=== PATIENT | female | born 1955 | race Caucasian/White ===

== ENCOUNTER 2018-10-16 06:37 | Day surgery (SDC) | payer OTHER, SELFPAY ==
[2018-10-16 06:40] VITALS: BP 133/68; PULSE 81; RESP 18; TEMP 36.6; O2SAT 96
[2018-10-16] MEDS: Lidocaine 2% Pres-Free 2 ML VIAL 14 ML IJ (07:30)
--- NOTE | 2018-10-16 08:18 | PDOC.DSDIS_ITS ---
Discharge Plan Disposition Patient Disposition: HOME Condition: Improving Discharge Details Attending Provider: Eugene Villagomez Primary Care Provider: Samantha Michelle V Home Meds and New Rx's Prescriptions: No Action montelukast 10 MG tablet 10 mg PO DAILY RF: 0 esomeprazole magnesium [Nexium] 20 MG capsule,delayed release(DR/EC) 20 mg PO DAILY RF: 0 escitalopram oxalate [Lexapro] 20 MG tablet 20 mg PO DAILY RF: 0 meloxicam 7.5 MG tablet 7.5 mg PO DAILY RF: 0 levothyroxine 125 MCG tablet 125 mcg PO DAILY@0730 Qty: 30 RF: 0 levalbuterol HCl [Xopenex] 1.25 MG/3 ML solution for nebulization 1.25 mg UPD Q2H PRN PRNQty: 1 RF: 0 aspirin [Aspir-81] 81 MG tablet,delayed release (DR/EC) 81 mg PO RF: 0 Discharge Instructions Additional Instructions: KEEP YOUR LEFT HAND ELEVATED ABOVE HEART LEVEL MUCH POSSIBLE FOR THE NEXT 48 HOURS. EXERCISE YOUR FINGERS AND THUMB COMFORT ALLOWS. YOU MAY LOOSEN THE WRIST SPLINT AND/OR THE UNDERLYING BERTRAM BANDAGE IF THEY FEEL TOO TIGHT. EXPECT SOME BLOODY DRAINAGE ON THE UNDERLYING GAUZE BANDAGES. FOR SHOWERING TOMORROW, COVER YOUR WRIST AND HAND WITH A PLASTIC BAG AND A RUBBER BAND ABOUT THE UPPER FOREARM TO KEEP THE WOUND DRY. ON 10/18/18, YOU MAY REMOVE ALL OF YOUR BANDAGES AND GET YOUR INCISION WET IN THE SHOWER WITH SOAP AND WATER. GENTLY PAT THE STITCHES DRY AND COVER THEM WITH GAUZE OR EXTRA-LARGE BANDAIDS. RESUME NORMAL USE TOLERATED GOING WITHOUT THE SPLINT SOON YOU ARE COMFORTABLE. FOLLOW-UP WITH DR. VILLAGOMEZ IN 1 WEEK FOR STITCH REMOVAL. TAKE YOUR REGULAR MEDICATIONS BEFORE. TAKE TYLENOL, ADVIL OR ALEVE FOR MILDER PAIN. TYLENOL MAY BE TAKEN AT THE SAME TIME ALEVE OR AT THE SAME TIME ADVIL THEY ARE METABOLIZED DIFFERENTLY AND ARE NOT CROSS TOXIC. TAKE NORCO (HYDROCODONE 5/325MG) 1-2 EVERY 4-6 HOURS FOR MORE SERIOUS PAIN. [facility] REGULATIONS LIMIT THE AMOUNT OF NORCO THAT CAN BE PRESCRIBED TO 18 TABLETS. Equipment/Supplies: Brace Remove Dressings/Wound Care:: 48 hours Shower/Bathe:: 48 hours Diet:: Carb Counting Discharge Orders Discharge Orders: Discharge Order (Routine); Ordered 10/16/18 Ordered By: Eugene Villagomez
--- NOTE | 2018-10-16 08:37 | ROE_ITS ---
REPORT OF OPERATIVE PROCEDURE DATE OF PROCEDURE October 16, 2018 PREOPERATIVE DIAGNOSES Left carpal tunnel syndrome, chronic. POSTOPERATIVE DIAGNOSES Left carpal tunnel syndrome, chronic. PROCEDURE Left open carpal tunnel release. SURGEON Eugene Schwab M.D. MASTER FIRE CONTROL TECHNICIAN Tech. ANESTHESIA 2% Lidocaine preservative free. PREP ChloraPrep. INDICATIONS This patient has had successful right open carpal tunnel surgery by me several months ago. She has no w returned to have the left carpal tunnel symptoms treated. She had EMG studies confirming the above named diagnosis. She was well aware of the planned procedure. I discussed the risks and benefits and re-reviewed the results in the Day Surgery holding area earlier this morning. I marked her left wrist . She has had an excellent result with the right hand. DESCRIPTION OF PROCEDURE The patient was taken to the Operating Suite, and time-out was instituted. The left hand and forearm were prepped with ChloraPrep and sterile drapes were applied. 2% preservative free lidocaine was then used to create an anesthetic wheal over the proposed incision site. A universal carpal tunnel incis ion was then made, based over the ring finger ray. Care was taken to cross the wrist flexion crease, at an acute angle in an ulnar direction so as to prevent injury to the palmar cutaneous branch of th e median nerve. After ensuring adequate anesthesia, a #15-scalpel blade was then used and Loupe magnification was use d throughout the procedure. The skin and subcutaneous tissues were incised and hemostasis was control led by direct pressure. The incision was carried sharply down through the subcutaneous fat to the pal mar fascia. Heiss retractors were placed to provide good visualization. Under direct vision the purvis sverse carpal ligament was identified and incised. Care was taken to prevent injury to the underlying median nerve. The incision was carried proximally to the distal portion of the antebrachial fascia a nd distally just proximal to the arterial arcade. Complete release was achieved. I had the patient fl ex and extend her fingers and there was no evidence of any loss bodies, foreign bodies or ganglion cy sts. There was a characteristic hourglass constriction of the median nerve at the mid portion of the transverse carpal ligament. The wound was then irrigated. The skin was closed with sutures of #5-0 Ethilon, alternating with simp le sutures with near-far, far-near retention sutures. Sterile bandages were applied, these consisted of Xeroform gauze, 4x4s, a 3-inch conforming gauze bandage, a 3-inch Huber wrap, and a commercial wrist immobilizer. The patient was taken to outpatient Recovery Room in satisfactory condition, tolerating the procedure well.
== END 2018-10-16 08:30 | disposition home or self-care (01) ==
PROVIDERS: PCP Family Medicine; Visit Provider Orthopaedic Surgery
PROC: (CPT 64721; principal; 2018-10-16 07:30)
DX: G56.02 Carpal tunnel syndrome, left upper limb (principal)
CPT/HCPCS: 64721; L3908

== ENCOUNTER 2018-12-11 07:18 | Outpatient (CLI) | payer OTHER, SELFPAY ==
[2018-12-11 07:48] LABS: HGB 12.5 g/dL (12.0-15.5); Mean Corp. HGB Concentration 32.1 g/dL (32.0-36.0); Mean Corpuscular Hemoglobin 25.5 pg (27.0-33.0); Mean Corpuscular Volume 79.6 fL (80-95); Mean Platelet Volume 9.8 fL (8.0-11.0); Platelet Count 254 x1000/uL (130-400); RBC Distribution Width 17.8 % (11.7-14.6); White Blood Cell Count 11.18 k/cumm (4.4-10.8)
[2018-12-11 08:34] LABS: ESR 37 MM/HR (0-30)
[2018-12-11 12:55] LABS: C-Reactive Protein 3.82 mg/dL (0.0-0.3); TSH (W/Ref FT4) 3.01 uIU/mL (0.358-3.74)
[2018-12-12 10:01] LABS: Rheumatoid Factor 16 IU/mL (<12.5)
[2018-12-12 13:55] LABS: ANA Interpretation Positive (NEGAT); ANA Titer Pattern 1:160 Speckled
== END 2018-12-11 07:38 ==
PROVIDERS: PCP Family Medicine; Visit Provider Family Medicine
DX: R53.83 Other fatigue (principal)
CPT/HCPCS: 36415; 85027; 85652; 84443; 86038; 86140; 86431

== ENCOUNTER 2019-05-26 13:25 | Outpatient (CLI) | payer OTHER, SELFPAY ==
[2019-05-26 15:20] LABS: Abs Immature Grans 0.03 k/cumm (0.0-0.09); Absolute Basophil Count 0.04 k/cumm (0.0-0.2); Absolute Lymphocyte Count 2.76 k/cumm (1.2-3.4); Absolute Monocyte Count 0.68 k/cumm (0.11-0.7); Basophils % 0.4; Eosinophils % 2.9; HCT 40.6 % (36.0-46.0); HGB 13.2 g/dL (12.0-15.5); Immature Grans % 0.3; Lymphocytes % 25.4; Mean Corp. HGB Concentration 32.5 g/dL (32.0-36.0); Mean Corpuscular Hemoglobin 25.9 pg (27.0-33.0); Mean Corpuscular Volume 79.6 fL (80-95); Mean Platelet Volume 9.9 fL (8.0-11.0); Monocytes % 6.3; Neutrophils % 64.7; Platelet Count 288 x1000/uL (130-400); RBC Distribution Width 17.5 % (11.7-14.6); White Blood Cell Count 10.87 k/cumm (4.4-10.8)
[2019-05-26 15:38] LABS: Absolute Eosinophil Count 0.32 k/cumm (0.0-0.7); Absolute Neutrophil Count 7.03 k/cumm (1.2-6.7)
[2019-05-26 15:52] LABS: Bilirubin Negative (Negative); Blood Negative (Negative); Clarity Clear (Clear); Glucose Negative (Negative); Ketones Negative (Negative); Leukocyte Esterase Negative (Negative); Nitrite Negative (Negative); Urobilinogen 0.2 EU/dL (Up TO 0.2); pH 5.5 (5-8)
[2019-05-26 16:11] LABS: Anion Gap 9.6 mmol/L (3-11); BUN 10 mg/dL (7-18); CO2 27.4 mmol/L (21.0-32.0); CREATININE 0.67 mg/dL (0.55-1.02); Chloride 104 mmol/L (98-107); Glucose 95 mg/dL (70-100); Potassium 4.2 mmol/L (3.5-5.1); Sodium 141 mmol/L (136-145)
== END 2019-05-26 13:45 ==
PROVIDERS: PCP Family Medicine; Visit Provider Orthopaedic Surgery
DX: M25.561 Pain in right knee (principal); M17.11 Unilateral primary osteoarthritis, right knee; I48.91 Unspecified atrial fibrillation; E03.9 Hypothyroidism, unspecified; Z01.812 Encounter for preprocedural laboratory examination; Z01.810 Encounter for preprocedural cardiovascular examination
CPT/HCPCS: 36415; 80051; 82947; 84520; 81003; 82565; 85025; 93005; 93010

== ENCOUNTER 2019-06-04 06:07 | Inpatient (IN) | payer OTHER, SELFPAY ==
[2019-06-04] VITALS (20 sets, daily range): BP systolic 101–149; BP diastolic 60–77; PULSE 68–94; RESP 14–22; TEMP 36.2–37.1; O2SAT 92–95
[2019-06-04] MEDS: Lactated Ringers 1,000 ML 80 ML IV ×2 (06:45→11:40)
[2019-06-04] MEDS: Bupivacaine 0.5% Pres-Free 30 ML VIAL ×2 (07:40→10:50)
[2019-06-04] MEDS: Bupivacaine LIPOSOME/PF 133 MG/10 ML VIAL IJ (07:40)
[2019-06-04] MEDS: Hydrogen Peroxide 3% 480 ML BTL (09:38)
--- NOTE | 2019-06-04 10:10 | SYNOVIUM_PTH ---
PATIENT: Brandi Ruiz LOC: U#:[id number] AGE/SX: 64/F ROOM: RE06/04/[address]: Eugene Schwab MD : [id number] BED: A DIS: 06/08/2019 SPEC #: [id number] RECD: 06/04/19 12:53 STATUS: SOLANGE REQ #: [id number] RADHA: 06/04/19 10:[address]: Eugene Schwab DEPT: Surgical Specimen RECD BY: Nadia Boateng ENTERED: 06/04/19 12:54 SP TYPE: SYNOVIUM OTHR DR: Samantha Michelle V Tissues: 1 - SYNOVIUM/IAL Procedures: GROSS AND MICRO LEVEL 4 Comments: [id number]
[2019-06-04] MEDS: fentaNYL 100 MCG/2 ML VIAL IVP ×4 (11:32→12:41)
--- NOTE | 2019-06-04 11:46 | DI.RAD_ITS ---
SYMPTOMS/DIAGNOSIS: RIGHT TOTAL KNEE ARTHROPLASTY FOR OSTEOARTHRITIS RIGHT KNEE: Two views were obtained and show total knee joint replacement in position. The components appear well seated. Small bony fragment is noted adjacent to the lateral aspect of the proximal tibia at the joint level.
--- NOTE | 2019-06-04 13:02 | ROE_ITS ---
REPORT OF OPERATIVE PROCEDURE DATE OF PROCEDURE June 04, 2019 PREOPERATIVE DIAGNOSIS End-stage osteoarthritis, right knee. POSTOPERATIVE DIAGNOSIS End-stage osteoarthritis, right knee. PROCEDURE 1. Right total knee arthroplasty, cemented. 2. Biopsy synovium, as the patient was recently diagnosed with dermatomyositis. SURGEON Eugene Schwab M.D. PLANNING FEEDER Alice An PA-C ANESTHESIA Femoral nerve block, followed by general via LMA by Ant Haley C.R.N.A. PREP ChloraPrep INDICATIONS This patient is a 64-year-old female who has had increasing symptoms in her right knee. She was recen tly diagnosed at [facility] with dermatomyositis and was placed on Plaqueni l. She underwent successful left total knee arthroplasty by me approximately six years ago. She was h aving increasing pain in her right knee and radiographs demonstrated end-stage osteoarthritis involvi ng primarily the medial compartment, but to a lesser extent, the patellofemoral joint. She was treate d conservatively until she could schedule a knee replacement. 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 I reviewed with the patient the planned operative procedure. I explained to her that some conditions have changed compared to her previous operation six years ago, specifically, that we are able to use Exparel as a femoral nerve blocking agent under ultrasound placement. We also have the ability to use tranexamic acid to minimize blood loss. The patient did have a relatively stormy postoperative cours e with pain and nausea control on her previous admission six years ago for left total knee replacemen t. She responded during that admission to Ativan controlling a lot of her nausea, more so than any of the antiemetics. She also has multiple allergies, including to cephalosporins, penicillin, vancomyci n, sulfites, and methylparaben preservatives in local anesthetics. The risks and benefits were review ed when the patient was greeted in the Day Surgery holding area and she understood and wished to proc eed. I marked her right leg with a skin marker. My plan was to use clindamycin, which the patient has taken before without allergic reaction as the prophylactic antibiotic. I would also use topical purvis examic acid at the end of the case along with Ativan and Dilaudid for pain control, and anxiety and n ausea control in addition to Zofran. The patient has allergies to Compazine and Phenergan. DESCRIPTION OF PROCEDURE The patient underwent femoral nerve blockade using Exparel. She then underwent general anesthesia by LMA with Propofol. Pneumatic tourniquet was applied to the right proximal thigh. She was given 600 mg of clindamycin over the course of 1 hour before the tourniquet was inflated and this was repeated at tourniquet deflation approximately 2 hours into the case. A Ham catheter was inserted without di fficulty. The right lower extremity was prepped with ChloraPrep from the toes to the groin. Sterile d rapes were applied. The limb was elevated for three minutes to exsanguinate it. The patient is morbid ly obese with a BMI of 45. She is quite tall such that her size did not readily compromise performanc e of the arthroplasty other than dealing with a very heavy limb. An anterior approach was used. Care was taken to try to create a single incision down to the fascia a nd extensor mechanism. A medial parapatellar arthrotomy was then performed and a copious amount of ricarda int fluid was removed from the knee. The patella was everted and the knee showed global osteoarthriti s in all three compartments. In addition, there was some synovitis in the supracondylar area of the f emur, which was sent for pathologic evaluation because of the recent diagnosis of dermatomyositis. Ho wever, overtly, there were no other signs of any inflammatory arthritis and it all appeared to be rel ated to degenerative arthritis. Osteophytes were trimmed medially and laterally from the patella. I t koffi used an intramedullary guide orin to resect the distal femur. A 7-degree valgus bushing was used t o resect an appropriate amount from the distal femur. The patient had a slight flexion contracture an d therefore 12 millimeters was resected from the distal femur. The patient had size #4 components use d on her left knee and subsequently during the course of this procedure, it was felt that a size #4 h ad the most appropriate fit with stress distribution over the larger surface area. After making the distal femoral, anterior and posterior cuts, made with cutting jigs for the size #4 femoral component and it fit perfectly. Next, the posterior cruciate ligament was recessed. Retractors were placed around the proximal tibia. The remnants of the medial meniscus were excised. The lateral meniscus was excised, as well as the A CL. An external alignment jig was placed, but initially had difficulty placing it because there was a large intratendinous osteophyte within the patellar tendon proximal to the tibial tubercle. This was carefully dislodged without damaging the tendon. It measured approximately 1 cm x 1.75 cm. I felt t hat this had to be removed because it could cause patellar tendinitis in the perioperative period. On ce this was removed, the external alignment jig could be easily placed on the proximal tibia. It was pinned to the bone and a 3-degree posterior slope cutting block was utilized. A minimal resection was done so as to avoid changing the joint line. A size #4 tibial tray had the most appropriate fit afte r a trial reduction was performed. Fixation holes were placed for the rotating platform component. I had previously used a tibial revision component as her initial tibial tray on the left knee was the recommendation by [facility] at that time, however, subsequent studies have shown, and the [facility] sales representative verified that there is no reason to not use the rotating platform t ray and there was no need to use a revision tray. The patella was measured with a caliper. It was quite worn out, especially laterally. The thickness o f the patella was only 21 millimeters. Using a combination resection guide and a freehand technique. I did a minimal resection of the patient's stockbridge patella. It was felt that a 38-mm tri-pronged cha lar component would have the most appropriate fit. This was medialized slightly. It tracked with the trial components in place without difficulty. After verifying the need for a size #4 tibial tray, a probable 10-mm polyethylene insert, a size #4 femoral component and a 38 patellar component, the [facility] nt fixation of the components was performed. Care was taken to make sure that the medial collateral l igament was released as a sleeve of tissue off the proximal and medial tibial metaphysis so as to all ow for correction of the patient's varus deformity. Methylmethacrylate was mixed in a vacuum chamber for 2 minutes. It contained gentamicin. The tibial c omponent was cemented into position in standard pressurization techniques were utilized. Extraneous c ement was removed. After that cement was allowed to cure, care was taken to remove any extraneous ce ment from the posterior depths of the wound. In addition, I noted that there was no extension of the femoral condyles posteriorly above the prosthesis to prevent holiness of extension. The second bat ch Methylmethacrylate was then used to cement the femoral component and a size #10-mm tray trial was used to pressurize the cement, the patellar component was also cemented with this second batch of mark ent and it was a #38-mm tri-pronged component. After the cement was allowed to cure, search was made for any extraneous cement in the depths of the wound. At this point, patellar tracking was assessed, there was a very slight tendency for the patella to ruiz bluxate, but I felt this was minimal and I did not feel a lateral retinacular release was indicated. Betadine irrigation protocol was then instituted, dilute Betadine 17.5 cc was placed in 500 cc of anil ine and irrigated over the course of three minutes into the wound, this was followed by irrigating wi th 1000 cc of sterile saline. The components all appeared to be well-fixed with no extraneous loose bodies or pieces of bone, or other tissue to interfere with function. There was no tendency for beari ng to spinout, and the actual rotating platform polyethylene insert was placed. This was a curved ins ert #size 4 matching the femoral component and the tibial component. The medial retinacular arthrotom y was then closed with sutures of #1-Vicryl in a qwikmw-zf-vqwvy fashion. At this point, the tourniqu et was deflated with tourniquet time being approximately 124 minutes. Tranexamic acid was then placed intra-articularly to minimize blood loss. This was 3 grams and 100 cc of saline. The peritenon was closed with #2-0 Vicryl. The subcutaneous tissues were closed with #2- 0 Vicryl. The skin was closed with juvencio. ESTIMATED BLOOD LOSS 125 cc The wounds were then dressed with Xeroform gauze, 4x4s, ABD Pads, two 6-inch confirming gauze bandage s, two 6-inch Huber wraps, a Cryo/Cuff, and a commercial knee immobilizer. The patient had excellent r eturn of dorsalis pedis pulses and circulation to the foot. She tolerated the procedure well. The biopsy specimen will be sent to the [facility] for confirmation of any inflammatory co mponent to the patient's arthritis.
[2019-06-04] MEDS: Normal Saline Flush 10 ML SYR IV ×2 (13:42→21:21)
[2019-06-04] MEDS: POTASSIUM CHLORIDE/0.9% NACL 1,000 ML 150 MEQ IV ×2 (13:42→20:56)
[2019-06-04] MEDS: Acetaminophen 325 MG TAB 650 MG PO ×2 (14:48→18:44)
[2019-06-04] MEDS: Ibuprofen 400 MG TAB PO ×2 (17:08→21:21)
[2019-06-04] MEDS: CLINDAMYCIN 600 MG/50 ML BAG 100 MG IVPB (17:48)
--- NOTE | 2019-06-04 20:00 | NUR.NOTE ---
Nursing Note: Pt to MS floor from ICU (MS overflow) at 1819. A&Ox3. VSS. Transferred from ICU bed to MS bed via hover mat. Pt's at bedside. Pt oriented to MS floor, call rousseau, etc. Call rousseau within reach. RN will continue to monitor.
[2019-06-04] MEDS: Esomeprazole 40 MG CAPCR PO (20:14)
[2019-06-04] MEDS: Escitalopram 20 MG TAB PO (21:19)
[2019-06-04] MEDS: Levothyroxine 125 MCG TAB PO (21:19)
[2019-06-04] MEDS: Hydroxychloroquine 200 MG TAB PO (21:19)
[2019-06-04] MEDS: Metoprolol CR 25 MG TABCR PO (21:20)
[2019-06-04] MEDS: LORazepam 2 MG/ML VIAL 1 MG IVP (21:21)
[2019-06-05] MEDS: CLINDAMYCIN 600 MG/50 ML BAG 100 MG IVPB (02:19)
[2019-06-05 03:35] VITALS: BP 101/65; PULSE 80; RESP 16; TEMP 36.1; O2SAT 93
[2019-06-05] MEDS: Acetaminophen 325 MG TAB 650 MG PO (03:44)
[2019-06-05] MEDS: POTASSIUM CHLORIDE/0.9% NACL 1,000 ML 150 MEQ IV ×4 (03:50→23:33)
[2019-06-05] MEDS: HYDROcodone 5/Acetaminophen 325 TAB PO ×5 (04:10→22:00)
[2019-06-05 07:20] LABS: HCT 32.6 % (36.0-46.0); HGB 10.1 g/dL (12.0-15.5); Mean Corpuscular Volume 80.7 fL (80-95); Mean Platelet Volume 10.3 fL (8.0-11.0); Platelet Count 215 x1000/uL (130-400); RBC 4.04 m/cumm (4.00-5.20); White Blood Cell Count 13.27 k/cumm (4.4-10.8)
[2019-06-05 07:36] LABS: Anion Gap 7.2 mmol/L (3-11); BUN 12 mg/dL (7-18); CO2 27.8 mmol/L (21.0-32.0); CREATININE 0.71 mg/dL (0.55-1.02); Calcium 8.7 mg/dL (8.5-10.1); Chloride 107 mmol/L (98-107); Glucose 135 mg/dL (70-100); Potassium 4.6 mmol/L (3.5-5.1); Sodium 142 mmol/L (136-145)
[2019-06-05 07:54] VITALS: BP 98/61; PULSE 72; RESP 16; TEMP 36.9; O2SAT 95
[2019-06-05] MEDS: Hydroxychloroquine 200 MG TAB PO ×2 (08:29→19:40)
[2019-06-05] MEDS: Multivitamin w/Minerals TAB 1 TAB PO (08:29)
[2019-06-05] MEDS: Ibuprofen 400 MG TAB PO ×2 (08:29→15:02)
[2019-06-05] MEDS: Enoxaparin 30 MG/0.3 ML SYR SC ×2 (08:30→19:40)
--- NOTE | 2019-06-05 09:09 | PGE_ITS ---
Date of Service Date of service: 06/05/19 Time of Service: 09:09 Assessment and Plan (1) History of total right knee replacement (TKR): Current visit: Yes Status: Acute Right total knee replacement with acceptable postoperative course. Hemoglobin is 10.1 electrolytes are normal glucose is slightly elevated at 135. She is had no nausea or vomiting. She is eating breakfast but in small amounts. Therefore IV fluid rate is 150 an hour until she is drinking better Ham catheter is not bothersome she has good function of the peroneal nerve and numbness along the course of the saphenous nerve. She is going to get up with PT. I changed her bandage today and the nurses can change it as needed she has not needed IV Dilaudid. Subjective Interval history since last seen: Generally doing well in contact with previously in the past he feels his voice is been much less somatic. She is only taking [place] early in the middle the night otherwise she is taking ibuprofen and Tylenol. She denies chest pain pressure shortness of breath. She still has persistent numbness along the medial aspect of her leg and great toe and the saphenous nerve distribution which is secondary to the experal blockade in the form or this may last another 48 hours she has good dorsiflexion and plantarflexion of the foot ankle and toes Exam Extrem Other: Because of breakthrough bleeding on the bandages a change her bandage today her wound has a benign appearance there is no unusual swelling there are no fracture blisters. There is no active bleeding and I can detect any sterile bandages applied with 4 x 4's ABD pads and 2 six inch Huber wraps. Objective Objective Clinical Data: Abnormal lab results 06/05/19 06/05/19 Range/Units 06:20 06:20 WBC 13.27 H (4.4-10.8) k/cumm Hgb 10.1 L (12.0-15.5) g/dL Hct 32.6 L (36.0-46.0) % MCH 25.0 L (27.0-33.0) pg MCHC 31.0 L (32.0-36.0) g/dL RDW 17.0 H (11.7-14.6) % Glucose 135 H (70-100) mg/dL Vital Signs Temperature 98.4 F 06/05/19 07:54 Temperature Source Tympanic 06/05/19 07:54 Pulse 72 06/05/19 07:54 Pulse Rhythm Regular 06/05/19 08:33 Respiratory Rate 16 06/05/19 07:54 Respiratory Effort Non-Labored 06/05/19 08:33 Respiratory Depth Normal 06/05/19 08:33 Respiratory Pattern Normal 06/05/19 08:33 Blood Pressure 98/61 L 06/05/19 07:54 Blood Pressure Mean 86 06/04/19 13:15 Blood Pressure Position Supine 06/04/19 13:15 Pulse Oximetry 95 06/05/19 07:54 Respiratory End-tidal CO2 39 06/04/19 12:50 Oxygen Delivery Method Room Air 06/05/19 07:54 Oxygen Flow Rate 0 06/05/19 07:54 Pain Level 6 06/05/19 08:29 Intake & Output 06/04/19 06/04/19 06/05/19 11:59 23:59 11:59 Intake Total 1100 / 3127.667 2027.667 / 3127.667 1355 / 1355 Output Total 450 / 2125 1675 / 2125 900 / 900 Balance 650 / 1002.667 352.667 / 1002.667 455 / 455 Weight 316 lb 9.341 oz 316 lb 9.341 oz 315 lb 11.231 oz Intake: IV 1100 / 2427.667 1327.667 / 2427.667 955 / 955 Oral 700 / 700 400 / 400 Output: Urine 350 / 2025 1675 / 2025 900 / 900 Estimated Blood Loss 100 / 100 Other: Urine Color Yellow Yellow Yellow Light Lida Urine Appearance Clear Clear Clear Comment Urine in tubing has cleared since admission from PACU Emesis Description None None Laboratory Results WBC 13.27 k/cumm (4.4-10.8) H 06/05/19 06:20 RBC 4.04 m/cumm (4.00-5.20) 06/05/19 06:20 Hgb 10.1 g/dL (12.0-15.5) L 06/05/19 06:20 Hct 32.6 % (36.0-46.0) L 06/05/19 06:20 MCV 80.7 fL (80-95) 06/05/19 06:20 MCH 25.0 pg (27.0-33.0) L 06/05/19 06:20 MCHC 31.0 g/dL (32.0-36.0) L 06/05/19 06:20 RDW 17.0 % (11.7-14.6) H 06/05/19 06:20 Plt Count 215 x1000/uL (130-400) 06/05/19 06:20 MPV 10.3 fL (8.0-11.0) 06/05/19 06:20 Sodium 142 mmol/L (136-145) 06/05/19 06:20 Potassium 4.6 mmol/L (3.5-5.1) 06/05/19 06:20 Chloride 107 mmol/L (98-107) 06/05/19 06:20 Carbon Dioxide 27.8 mmol/L (21.0-32.0) 06/05/19 06:20 7.2 mmol/L (3-11) 06/05/19 06:20 BUN 12 mg/dL (7-18) 06/05/19 06:20 0.71 mg/dL (0.55-1.02) 06/05/19 06:20 >= 60.00 (mL/min/1.73m2) 06/05/19 06:20 Glucose 135 mg/dL (70-100) H 06/05/19 06:20 Calcium 8.7 mg/dL (8.5-10.1) 06/05/19 06:20
--- NOTE | 2019-06-05 09:12 | PDOC.CMIN ---
Care Management Initial Assess REASON FOR HOSPITALIZATION:: s/p R TKA PAST MEDICAL HISTORY/PAST SURGICAL HISTORY:: Medical: HTN, GERD, GINO, dermatomyositis, seasonal allergies, hypothyroidism, depression. Surgical: L TKA. PREVIOUS FUNCTIONAL STATUS/SOCIAL/FAMILY SUPPORTS:: Brandi is 64 yo woman who lives with her in their home in [place]. 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 She is usually independent with all ADL's. He knee pain had become more problematic for her work and she decided to have it repaired. CURRENT FUNCTIONAL STATUS:: She is sitting up in chair when CM enters. is also present. She easily engages in discussion re plans. ADVANCE DIRECTIVES:: Does not have document but does have paperwork at home. Has patient been provided with information about the portal?: Yes Did the patient sign up for the portal?: No CODE STATUS:: Full Code INSURANCE COVERAGE / FINANCIAL ISSUES:: [employer] CURRENT HOME/COMMUNITY SERVICES/EQUIPMENT:: No current services. Has walker, shower bench and commode for home use. PRIMARY CARE PHYSICIAN:: Samantha Michelle MD POTENTIAL DISCHARGE NEEDS:: Want to have crutches for home uses after d/c. Plans OP PT in [facility] with Hosea COOK. Will need follow-up with ortopedist as directed. PATIENT/FAMILY EDUCATION NEEDS:: Review d/c instructions re meds and activity levels. Review Ask me Now questions. ANTICIPATED BARRIERS TO DISCHARGE:: none identified TRANSPORTATION:: via car with PLAN:: d/c home as per with OP PT as directed.
--- NOTE | 2019-06-05 09:27 | PHARADMIT ---
Admission Pharmacy Clinical Review TOTAL KNEE Code Status Full Code Current Weight Wgt-143.2 kg Renally Cleared and Narrow Therapeutic Index Meds CrCl~ 75.2mL/min Meds-OK QTc Value / Action Taken QTc-436 -NA BP Control, Fever BP- 98/61 Tmax- 36.9C Electrolytes reviewed Na- 142 K+4.6 DVT Prophylaxis Lovenox Opiate Usage / Scheduled Bowel Regimen Ordered Yes Yes Plt/SCr for Heparin / Enoxaparin Plts-215 SCr-0.71 INR for Warfarin NA H/H stable, WBC/Bands H&H- 10.1/32.6 WBC- 13.27 Antibiotic appropriateness Clindamycin Cultures and Sensitivities none Surgical ABX d/c within 24 hr Yes DM control / Insulin Dosing BG-135 Heart Failure (Check EF%) (BERTRAM's, B-Block, Diuretics) Toprol-XL, IV to PO Switch No Home Meds Reviewed Yes Home Meds Not Ordered Xanax, Zyrtec, Comments
--- NOTE | 2019-06-05 10:00 | IN_ITS ---
Date of service: 06/05/19 Time of Service: 08:48 PT Notes Inpatient Physical Therapy Evaluation Date: 06/05/2019 Referring Doctor: Eugene Schwab MD PT Orders: PT CONSULT: 64-year-old white female BMI 45, status post right total knee arthroplasty on 06/04/2019. Up in chair tomorrow, weightbearing as tolerated on right with walker. Patient had successful left total knee 6 years ago. Precautions: Fall. Standard. WBAT on right LE. Patient Profile/Admitting Diagnosis: Patient is a 64-year-old female with end- stage osteoarthritis of right knee status post cemented right total knee arthroplasty on post operative day 1 PMHX: History of total left knee replacement Morbid obesity Hypothyroidism Depression GERD Status post carpal tunnel release Primary osteoarthritis of right knee Social History/Home Situation: Patient lives with in a 1 floor house with 4 steps to enter a rail on the left going up. 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 She is independent with all aspects of ADLs without the need for an assistive ambulatory device nor adaptive equipment. Current Functional Limitations: Need for assistance for all transfers and ambulation task performance using front wheeled Equipment Owned/DME: Front wheel walker, straight cane, shower chair, grab bars Subjective: Patient is agreeable to a PT consult and treatment today. She reports diminished sensation on the medial aspect of her right thigh and leg. She reports pain and discomfort on knee and calf area on the right. She denies dizziness, chest pain, headache, throughout PT session. She hopes that she can go home at bilateral axillary crutches level. Objective: General Observation: Patient seen resting in bed. IV in left UE. Ham catheter and. Surgical dressing and BERTRAM wraps on right knee. Anti-DVT/embolic pump on left leg. Mental Status: Alert and oriented x4 Pain: 3/10 at rest. 4/10 with weightbearing activity. Vital Signs: Patient was negative for orthostatic hypotension at time of evaluation. ROM: Right Upper Extremity: Shoulder Flexion WFL. Shoulder abduction WFL. Elbow flexion WFL. Wrist flexion WFL. Functional opening and closing of hand WFL. Left Upper Extremity: Shoulder Flexion WFL. Shoulder abduction WFL. Elbow flexion WFL. Wrist flexion WFL. Functional opening and closing of hand WFL. Right Lower Extremity: Hip flexion NT. Hip abduction NT. Knee flexion NT. Ankle dorsiflexion WFL. Ankle plantarflexion WFL. Left Lower Extremity: Hip flexion WFL. Hip abduction WFL. Knee flexion WFL. Ankle dorsiflexion WFL. Ankle plantarflexion WFL. Strength: Right Upper Extremity: Shoulder flexors 5/5. Shoulder abductors 5/5. Elbow flexors 5/5. Elbow extensors 5/5. Endless Track Vehicle Supervisor strong. Left Upper Extremity: Shoulder flexors 5/5. Shoulder abductors 5/5. Elbow flexors 5/5. Elbow extensors 5/5. Endless Track Vehicle Supervisor strong. Right Lower Extremity: Hip flexors 3-/5. Hip abductors 4-/5. Knee flexors unable to test due to pain. Knee extensors unable to test due to pain. Ankle dorsiflexors 3+/5. Ankle plantarflexors 4-/5. Left Lower Extremity:Hip flexors 5/5. Hip abductors 5/5. Knee flexors 5/5. Knee extensors 5/5. Ankle dorsiflexors 5/5. Ankle plantarflexors 5/5. Sensation: Intact as to pain and pressure on left lower extremity. Reports diminished sensation as to pressure on the medial aspect of right thigh and leg. Bed Mobility/Transfers: Rolling minimal assist to right LE Supine to sit minimal assist to right LE Sit to supine minimal assist to right LE Sit to stand CGA Stand to sit CGA Bed to chair CGA Chair to bed CGA Gait: Patient was able to tolerate short distance ambulation of 6 steps forward and 3 steps backward with a 1 turn requiring CGA with the use of front wheeled walker using step to gait pattern with report of 5/10 pain on right knee and posterior leg with activity that subsided with rest. Balance: Static Sitting: Good Dynamic Sitting: Good Static Standing: Fair Dynamic Standing: Fair Special Tests: Mobility Limitations Standardized Measure [facility] AM-PAC 6 clicks Basic Mobility Inpatient Short Form: Raw Score: 15 CMS Score: 58% deficit Informed Consent/Education: Patient instructed in purpose of PT consult and plan of care. Patient was instructed in the hourly performance of bilateral ankle pumping x30, quadriceps setting x10, and gluteal setting x 10 in order to maximize mobility level and prevent postoperative complications. Assessment: Patient is a 64-year-old female with end-stage osteoarthritis of right knee status post cemented right total knee arthroplasty on post operative day 1. Patient presents with clinical signs and symptoms consistent with current/admitting diagnoses that have resulted to mobility limitations, gait instability, generalized weakness, and impairment of motor control as demonstrated by the following impairment level findings: 1. Decreased strength to R LE major muscle groups 2. Impaired sitting/standing balance 3. Impaired activity tolerance 4. Limitation of joint range of motion in R knee Impairments are contributing to the following functional limitations: 1. Dependent bed mobility skills 2. Increased dependence with transfers 3. Inability to safely ambulate without assistive device and physical assistance 4. Increase completion time for mobility ADL performance 5. Increased fall risk 6. Inability to negotiate steps alone safely Patient is assessed as a 61057 moderate complexity based on the following: History: 64-year-old cognitively intact obese female with independent premorbid level status post cemented total knee arthroplasty Examination: Demonstrable impairment in strength, balance, and range of motion with underlying impairments and functional limitations as documented above Presentation:Evolving Decision Makin moderate complexity Goals: Goals X1 week 1. Supine-Sit independent 2. Sit-Supine independent 3. Sit-Stand independent 4. Stand-Sit independent 5. Bed-Chair independent 6. Chair-Bed independent 7. Independent gait on level surface with use of least restrictive device for at least 300 feet without report of pain nor dyspnea 8. Independent stair negotiation while holding onto bilateral rails for at least 10 steps without report of pain nor dyspnea 9. Independent with home exercise program 10. Good static and dynamic standing balance/tolerance Plan of Care/Treatment Plan: 1-2x/day, 7 days/week x 1 week. Plan of care has been reviewed with the SILVERING APPLICATOR providing the service under Physical Therapy direction. Initiate Physical Therapy intervention for strengthening, bed mobility, transfers, gait, stairs, balance training, use of assistive device. DISCHARGE RECOMMENDATIONS: May benefit from the use of a front wheeled walker vs. bilateral axillary crutches at time of discharge. May benefit from skilled physical therapy services according to orthopedic surgeon timeline recommendations. Patient will be educated and trained on home exercise program per [facility] exercise protocol in preparation for outpatient physical therapy services. TREATMENT CODE/TIME: 9716 2 x 30 minutes, 9753 0 x 23 minutes beginning at 8:48 AM. Thank you very much for this referral. Suzanne Stern PT, DPT, CLT [facility]
[2019-06-05] MEDS: Normal Saline Flush 10 ML SYR IV ×2 (10:33→22:01)
[2019-06-05] MEDS: HYDROmorphone 2 MG/ML VIAL 0.5 MG IVP (11:01)
[2019-06-05 11:48] VITALS: BP 103/69; PULSE 79; RESP 18; TEMP 36.9; O2SAT 99
--- NOTE | 2019-06-05 12:27 | PTTR_ITS ---
Date of service: 06/05/19 Time of Service: 12:27 PT Notes Inpatient Physical Therapy Treatment Note [facility] Date: 06/05/19 PRECAUTIONS: Fall, WBAT R SUBJECTIVE: Brandi states that she was feeling uncomfortable sitting up in the chair. She is agreeable to participating in PT. OBJECTIVE: PAIN: Patient c/o R knee discomfort with gait training, transfers, and ther ex BED MOBILITY/TRANSFERS Sit-supine: S with HOB flat and K.I. Sit-stand: CGA Stand-sit: CGA Chair-bed: [facility] GAIT Assistive Device: FWW, Knee Immobilizer Weight bearing: WBAT on R Assist: CGA Distance: 15' Deviation: Step-to gait pattern utilized THEREX: Patient completed a LE strengthening and stabilization program, in a supine position, as per flow sheet. Patient requires assist with SLR and hip abduction exercises. She ends with cryocuff to R knee and in the CPM 0-35 degrees. ASSESSMENT: Patient tolerated session well with c/o increased discomfort in R knee with activity. She was able to tolerate a progression in gait training with FWW support and CGA. She would benefit from continued gait and transfer training, as well as strengthening for improved mobility and activity tolerance. PLAN: Continue with PT's POC TREATMENT CODE/TIME: 30 minutes; 99432, [id number]
--- NOTE | 2019-06-05 13:54 | CHAPLAIN ---
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 Brandi told me about her knee surgery. She said she is already feeling better with this knee than when she had her previous knee done. She introduced me to her . I offered a prayer with Brandi before I left.
[2019-06-05 15:48] VITALS: BP 100/64; PULSE 84; RESP 18; TEMP 37.1; O2SAT 94
[2019-06-05] MEDS: Esomeprazole 40 MG CAPCR PO (19:40)
[2019-06-05] MEDS: Levothyroxine 125 MCG TAB PO (21:50)
[2019-06-05] MEDS: Escitalopram 20 MG TAB PO (21:50)
[2019-06-05] MEDS: Metoprolol CR 25 MG TABCR PO (21:50)
[2019-06-05] MEDS: LORazepam 2 MG/ML VIAL 1 MG IVP (22:01)
[2019-06-06] VITALS (17 sets, daily range): BP systolic 98–135; BP diastolic 56–74; PULSE 83–105; RESP 1–93; TEMP 36–38.4; O2SAT 4–99
[2019-06-06] MEDS: HYDROmorphone 2 MG/ML VIAL 0.5 MG IVP (00:12)
[2019-06-06] MEDS: Acetaminophen 325 MG TAB 650 MG PO (03:56)
--- NOTE | 2019-06-06 04:24 | NUR.NOTE ---
Nursing Note: At approximately 0335, I entered this patients room and found her SAO2 to be ranging in the mid 70's- low 80's. SAO2 was obtained via ear and finger probe. Patients appeared slightly cyanotic around lips and distal extremities. Patient was placed on oxygen at that time. MAEGAN Fritz was notified and came to patients room. Patient states I just feel off and complaining of increased pain. Patient states she is slightly dizzy and denies any feelings of shortness of breath, chest pain, or chest pressure. Patient was repositioned into a sitting position and encouraged to cough and deep breathe. Patients SAO2 came up to low to mid 90's after interventions. Patient states she is not feeling as dizzy as before.
[2019-06-06] MEDS: POTASSIUM CHLORIDE/0.9% NACL 1,000 ML 150 MEQ IV (06:10)
[2019-06-06] MEDS: HYDROcodone 5/Acetaminophen 325 TAB PO ×4 (06:13→12:33)
--- NOTE | 2019-06-06 07:53 | W.PM.PROGNOT ---
Date of Service Date of service: 06/06/19 Time of Service: 07:54 Assessment and Plan (1) History of total right knee replacement (TKR): Current visit: Yes Status: Acute S/P right total knee arthroplasty generally doing well. I will d/c richardson catheter as well as iv medications. Patient will use norco for pain along with ibuprofen. She will have lower doses of ativan orally and IM dilaudid for break-thru pain. Continue p.t. Continue lovenox dvt prophylaxis. I will follow up labs but I expect some mild surgical anemia. Patient will be up to the shower tomorrow. Subjective Interval history since last seen: Generally feeling well. Did have significant increase in pain last night/early this morning which was treated with 2 [place], ativan and dilaudid. This resulted in desaturation to 70% responding to nasal oxygen and incentive spirometry. No chest pain, pressure or shortness of breath. Does not appear to be in any acute distress this morning. Notes of return of sensation to right foot. Exam Extrem Other: Right knee dressing is dry and intact. No breakthru bleeding. No neurovascular deficits of right foot. Urine is completely clear in richardson. Labs this am pending. Objective Objective Clinical Data: Vital Signs Temperature 99.1 F 06/06/19 05:15 Temperature Source Tympanic 06/06/19 05:15 Pulse 83 06/06/19 06:10 Pulse Rhythm Regular 06/06/19 04:01 Respiratory Rate 16 06/06/19 05:15 Respiratory Effort 06/06/19 04:01 Respiratory Depth Normal 06/06/19 04:01 Respiratory Pattern Normal 06/06/19 04:01 Blood Pressure 102/60 06/06/19 06:10 Blood Pressure Mean 86 06/04/19 13:15 Blood Pressure Position Supine 06/04/19 13:15 Pulse Oximetry 93 L 06/06/19 06:10 Respiratory End-tidal CO2 39 06/04/19 12:50 Oxygen Delivery Method Nasal Cannula 06/06/19 06:10 Oxygen Flow Rate 4 06/06/19 06:10 Pain Level 6 06/06/19 06:10 Comment 06/06/19 00:15 Intake & Output 06/05/19 06/05/19 06/06/19 11:59 23:59 11:59 Intake Total 2754 / 5796.5 3042.5 / 5796.5 2355.0 / 2355.0 Output Total 1350 / 3575 2225 / 3575 1100 / 1100 Balance 1404 / 2221.5 817.5 / 2221.5 1255.0 / 1255.0 Weight 315 lb 11.231 oz Intake: [place] [address].5 1962.5 / 3956.5 1955.0 / 1955.0 Oral 760 / 1840 1080 / 1840 400 / 400 Output: Urine 1350 / 3575 2225 / 3575 1100 / 1100 Other: Urine Color Yellow Yellow Yellow Urine Appearance Clear Clear Clear Laboratory Results WBC 13.27 k/cumm (4.4-10.8) H 06/05/19 06:20 RBC 4.04 m/cumm (4.00-5.20) 06/05/19 06:20 Hgb 10.1 g/dL (12.0-15.5) L 06/05/19 06:20 Hct 32.6 % (36.0-46.0) L 06/05/19 06:20 MCV 80.7 fL (80-95) 06/05/19 06:20 MCH 25.0 pg (27.0-33.0) L 06/05/19 06:20 MCHC 31.0 g/dL (32.0-36.0) L 06/05/19 06:20 RDW 17.0 % (11.7-14.6) H 06/05/19 06:20 Plt Count 215 x1000/uL (130-400) 06/05/19 06:20 MPV 10.3 fL (8.0-11.0) 06/05/19 06:20 Sodium 142 mmol/L (136-145) 06/05/19 06:20 Potassium 4.6 mmol/L (3.5-5.1) 06/05/19 06:20 Chloride 107 mmol/L (98-107) 06/05/19 06:20 Carbon Dioxide 27.8 mmol/L (21.0-32.0) 06/05/19 06:20 7.2 mmol/L (3-11) 06/05/19 06:20 BUN 12 mg/dL (7-18) 06/05/19 06:20 0.71 mg/dL (0.55-1.02) 06/05/19 06:20 >= 60.00 (mL/min/1.73m2) 06/05/19 06:20 Glucose 135 mg/dL (70-100) H 06/05/19 06:20 Calcium 8.7 mg/dL (8.5-10.1) 06/05/19 06:20
[2019-06-06 08:23] LABS: HGB 9.2 g/dL (12.0-15.5); Mean Corp. HGB Concentration 30.7 g/dL (32.0-36.0); Mean Corpuscular Hemoglobin 25.1 pg (27.0-33.0); Mean Corpuscular Volume 81.7 fL (80-95); Mean Platelet Volume 10.9 fL (8.0-11.0); Platelet Count 191 x1000/uL (130-400); RBC 3.67 m/cumm (4.00-5.20); RBC Distribution Width 17.7 % (11.7-14.6); White Blood Cell Count 11.33 k/cumm (4.4-10.8)
[2019-06-06 08:28] LABS: Anion Gap 7.5 mmol/L (3-11); BUN 8 mg/dL (7-18); CO2 25.5 mmol/L (21.0-32.0); CREATININE 0.72 mg/dL (0.55-1.02); Calcium 8.4 mg/dL (8.5-10.1); Chloride 106 mmol/L (98-107); Glucose 103 mg/dL (70-100); Potassium 4.4 mmol/L (3.5-5.1); Sodium 139 mmol/L (136-145)
[2019-06-06] MEDS: Enoxaparin 30 MG/0.3 ML SYR SC ×2 (09:12→19:46)
[2019-06-06] MEDS: Hydroxychloroquine 200 MG TAB PO ×2 (09:12→19:46)
[2019-06-06] MEDS: Multivitamin w/Minerals TAB 1 TAB PO (09:12)
[2019-06-06] MEDS: Normal Saline Flush 10 ML SYR IV (09:18)
--- NOTE | 2019-06-06 09:28 | CMPROGNOTE_ITS ---
- If Service Date Differs Date of service: 06/06/19 Time of Service: 09:28 Care Management Progress Note S/O:Brandi was sitting up in the chair when CM came to visit. She was grimacing in pain and rubbing her operative leg. She asked her to call the nurse to get her something for pain while CM was with her. Brandi states that the post operative has been very difficults has been very painful. Her thigh is obvious edematous and she states she has had a lot of drainage as well. She says she expects to remain at [facility] another couple of days. A: Brandi is a 64 year old woman admitted to [facility] om 06/04/19 for a total knee replacement P: Brandi will be discharged home when ready. She will attend OP PT with Hosea COOK in [facility]. CM will continue to provide support to patient, family and discharge planning process.
[2019-06-06] MEDS: Ondansetron O.D.T. 4 MG TABEF PO ×2 (10:07→18:24)
--- NOTE | 2019-06-06 12:43 | PT.INTREAT ---
Date of service: 06/06/19 Time of Service: 12:43 PT Notes Inpatient Physical Therapy Treatment Note [facility] Date: 06/06/2019 PRECAUTIONS: Fall, WBAT R SUBJECTIVE: Brandi states that she is feeling okay this morning, although she was having significant pain t/o the night. She is agreeable to participating in PT. This afternoon, Brandi states that she has a headache and the chills, she states that she feels generally unwell. She denies nausea at this time. OBJECTIVE: PAIN: Patient c/o of right knee pain with transfers, gait training, and ther ex BED MOBILITY/TRANSFERS Supine-sit: I with HOB flat Sit-supine: I with HOB flat Sit-stand: CGA Stand-sit: CGA GAIT Assistive Device: FWW Weight bearing: WBAT R Assist: CGA x2 Distance: 20' x2 in both a.m. and p.m. Deviation: Step-to, increased pain THEREX: Patient completed a lower extremity strengthening and stabilization program, in a supine position, as per flow sheet. She ends with cryocuff to R knee. TOILETING: Patient toileted with SBA for transfers. ASSESSMENT: Patient tolerated session with complaint of right knee pain with transfers, gait training, and ther ex. Patient was able to tolerate a progression in gait distance with FWW support and CGA x2. She would benefit from continued gait and transfer training as well as strengthening for improved mobility and improved activity tolerance. PLAN: Continue with PTs POC TREATMENT CODE/TIME: Session 1: 45 minutes; 51202 x2, 26960 Session 2: 45 minutes; 94544 x3
[2019-06-06] MEDS: Levalbuterol 1.25 MG/3 ML UPD VIAL UPD (14:34)
--- NOTE | 2019-06-06 14:36 | NUR.NOTE ---
Nurs Note: CHART REVIEW DONE FOR EDUCATIONAL PURPOSES
--- NOTE | 2019-06-06 16:16 | CHAPLAIN ---
Brandi said she's not feeling as well today and has temperature. I checked in with her in the morning and then in the afternoon and offered a prayer with her. This is her second knee replacement so she said she knew what she was getting into and she was happy about having her surgeon do the surgery before he retires in July. Brandi seems to be well supported by her who has been here much of the time.
[2019-06-06] MEDS: Ibuprofen 400 MG TAB PO (17:48)
[2019-06-06] MEDS: Esomeprazole 40 MG CAPCR PO (19:46)
[2019-06-06] MEDS: Levothyroxine 125 MCG TAB PO (21:42)
[2019-06-06] MEDS: Escitalopram 20 MG TAB PO (21:42)
[2019-06-06] MEDS: Metoprolol CR 25 MG TABCR PO (21:42)
[2019-06-07] VITALS (9 sets, daily range): BP systolic 97–121; BP diastolic 58–72; PULSE 84–107; RESP 18–20; TEMP 36.7–38.2; O2SAT 92–97
--- NOTE | 2019-06-07 01:23 | NUR.NOTE ---
Nursing Note: Beginning of the shift, pt lying on bed when v/s while taken by WELDING EQUIPMENT SALES REPRESENTATIVE , noticed that O2 Sat was 78% at 4L/NC., Pt encouraged for deep breathing and when started to talk , it when up to 93%. RT instructed pt to do acapella and tolerated well. Continuous pulse ox in progress. at bedside. Pt is more alert and verbalized of there is slight improvement on her condition. Out of bed to bedside commode. lore wrap drsg on right knee is C/D/I, except on upper part which few of juvencio on incisions exposed, dry gauze with shadow of dry sero sanguinous discharge. CSMT within normal limit. Continue to observe. Call lights at reach.
[2019-06-07] MEDS: Ondansetron O.D.T. 4 MG TABEF PO ×3 (01:39→17:44)
[2019-06-07] MEDS: Acetaminophen 325 MG TAB 650 MG PO ×3 (05:15→19:34)
--- NOTE | 2019-06-07 07:55 | PGE_ITS ---
Date of Service Date of service: 06/07/19 Time of Service: 07:55 Assessment and Plan (1) History of total right knee replacement (TKR): Current visit: Yes Status: Acute Right total knee arthroplasty complicated by mild hypoxia responding to pulmonary toilet along with mild surgical anemia. I will make sure that she is on a multivitamin. I discussed with her nurse personally about getting her up to the shower today. She has had no dysuria or difficulty voiding since the Ham catheter was removed. She states that her pain is under good control and [place] is handling it. Subjective Interval history since last seen: Brandi is seen in chair she had a reasonably good night last night. Her oxygen levels fell yesterday afternoon and she had not been using her inhalers I suggested to the charge nurse that she have an updraft and then also use her inhalers routinely. This is resulted in improvement in her saturation levels to the 93 to 95% range. She is in no respiratory distress and is currently sitting in the recliner chair next to her bed with ice on her knee she is alert and oriented she had a mildly elevated temperature last night but this has come back to normal. She still has some subjective numbness over the big toe but is able to move her foot and has good sensation over the majority of the dorsal and plantar aspects of the right foot Exam Extrem Other: No unusual swelling of the right lower extremity is noted today. Patient's hemoglobin yesterday was 9.2 her electrolytes were essentially within normal limits with her glucose improving from very mild hyperglycemia the day b efore. She is not demonstrating any tachycardia but she is slightly hypotensive based on the blood loss Objective Objective Clinical Data: Abnormal lab results 06/06/19 06/06/19 Range/Units 06:25 06:25 WBC 11.33 H (4.4-10.8) k/cumm RBC 3.67 L (4.00-5.20) m/cumm Hgb 9.2 L (12.0-15.5) g/dL Hct 30.0 L (36.0-46.0) % MCH 25.1 L (27.0-33.0) pg MCHC 30.7 L (32.0-36.0) g/dL RDW 17.7 H (11.7-14.6) % Glucose 103 H (70-100) mg/dL Calcium 8.4 L (8.5-10.1) mg/dL Vital Signs Temperature 99.1 F 06/07/19 03:38 Temperature Source Tympanic 06/07/19 03:38 Pulse 86 06/07/19 03:38 Pulse Rhythm Regular 06/06/19 18:36 Respiratory Rate 19 06/07/19 03:38 Respiratory Effort 06/06/19 18:36 Respiratory Depth Normal 06/06/19 18:36 Respiratory Pattern Normal 06/06/19 18:36 Blood Pressure 97/58 L 06/07/19 03:38 Blood Pressure Mean 86 06/04/19 13:15 Blood Pressure Position Supine 06/04/19 13:15 Pulse Oximetry 95 06/07/19 05:00 Respiratory End-tidal CO2 39 06/04/19 12:50 Oxygen Delivery Method Room Air 06/07/19 03:38 Oxygen Flow Rate 4 06/07/19 05:00 Pain Level 5 06/07/19 05:15 Comment 06/06/19 00:15 Intake & Output 06/06/19 06/06/19 06/07/19 11:59 23:59 11:59 Intake Total 3372.5 / 4690.0 1317.5 / 4690.0 Output Total 1550 / 1550 400 / 400 Balance 1822.5 / 3140.0 1317.5 / 3140.0 -400 / -400 Weight 318 lb 9.087 oz 315 lb 11.231 oz Intake: IV 2492.5 / 3020.0 527.5 / 3020.0 Oral 880 / 1670 790 / 1670 Output: Urine 1550 / 1550 400 / 400 Other: Urine Color Yellow Yellow Yellow Urine Appearance Clear Clear Clear Urine Odor None None Comment pt voided when up with physical therapy Voiding Methods Bedside Commode Laboratory Results WBC 11.33 k/cumm (4.4-10.8) H 06/06/19 06:25 RBC 3.67 m/cumm (4.00-5.20) L 06/06/19 06:25 Hgb 9.2 g/dL (12.0-15.5) L 06/06/19 06:25 Hct 30.0 % (36.0-46.0) L 06/06/19 06:25 MCV 81.7 fL (80-95) 06/06/19 06:25 MCH 25.1 pg (27.0-33.0) L 06/06/19 06:25 MCHC 30.7 g/dL (32.0-36.0) L 06/06/19 06:25 RDW 17.7 % (11.7-14.6) H 06/06/19 06:25 Plt Count 191 x1000/uL (130-400) 06/06/19 06:25 MPV 10.9 fL (8.0-11.0) 06/06/19 06:25 Sodium 139 mmol/L (136-145) 06/06/19 06:25 Potassium 4.4 mmol/L (3.5-5.1) 06/06/19 06:25 Chloride 106 mmol/L (98-107) 06/06/19 06:25 Carbon Dioxide 25.5 mmol/L (21.0-32.0) 06/06/19 06:25 7.5 mmol/L (3-11) 06/06/19 06:25 BUN 8 mg/dL (7-18) 06/06/19 06:25 0.72 mg/dL (0.55-1.02) 06/06/19 06:25 >= 60.00 (mL/min/1.73m2) 06/06/19 06:25 Glucose 103 mg/dL (70-100) H 06/06/19 06:25 Calcium 8.4 mg/dL (8.5-10.1) L 06/06/19 06:25
--- NOTE | 2019-06-07 08:05 | CMPROGNOTE_ITS ---
- If Service Date Differs Date of service: 06/07/19 Time of Service: 08:05 Care Management Progress Note S/O:Brandi was sitting up in bed talking with her visitor when Cm came to see her. She stated she is feeling better but is still uncomfortable. She states she has all of the equipment she will need when discharged except crutches. She noted that she was about to have a shower and is really looking forward to that as well as to having her leg unwrapped. A: Brandi is a 64 year old woman admitted to [facility] om 06/04/19 for a total knee replacement P: Brandi will be discharged home when ready. She will attend OP PT with Hosea COOK in [facility]. CM will continue to provide support to patient, family and discharge planning process.
[2019-06-07] MEDS: Enoxaparin 30 MG/0.3 ML SYR SC ×2 (08:25→19:35)
[2019-06-07] MEDS: Multivitamin w/Minerals TAB 1 TAB PO (08:26)
[2019-06-07] MEDS: Hydroxychloroquine 200 MG TAB PO ×2 (08:26→19:34)
[2019-06-07] MEDS: Ibuprofen 400 MG TAB PO (08:26)
--- NOTE | 2019-06-07 10:55 | PT.INTREAT ---
Date of service: 06/07/19 Time of Service: 09:35 PT Notes Inpatient Physical Therapy Treatment Note [facility] Date: 06/07/19 PRECAUTIONS:Standard SUBJECTIVE: Pt reports that she is feeling better since she is off from most of the medications. She states that her oxygen is better today as well. Pt was c/o some discomfort in her R calf and states that she has noticed this since the surgery. OBJECTIVE: Supine-sit: SBA Sit-supine: Min assist with involved LE Sit-stand: CGA Stand-sit: CGA GAIT Assistive Device: FWW Weight bearing: WBAT R LE Assist: CGA Distance: 20ftx4 VITALS: Oxygen with 2 L was in the low to mid 90's THEREX: Pt completed Supine and seated LE strengthening ther ex as per flow sheet. Pt received AAROM into knee flexion while in the seated position and was able to achieve approx 90 degrees knee flexion ROM and while supine 0 degrees knee extension. ASSESSMENT: Pt tolerated today's session well. Will monitor pt's response and progress accordingly. PLAN: Cont as per PT POC. TREATMENT CODE/TIME: 9:35-10:00 (25) BETHEL WHITFIELD
[2019-06-07] MEDS: LORazepam 0.5 MG TAB PO (13:42)
[2019-06-07] MEDS: Esomeprazole 40 MG CAPCR PO (19:35)
[2019-06-07] MEDS: Escitalopram 20 MG TAB PO (21:51)
[2019-06-07] MEDS: Metoprolol CR 25 MG TABCR PO (21:52)
[2019-06-07] MEDS: Levothyroxine 125 MCG TAB PO (21:52)
[2019-06-08 03:45] VITALS: BP 107/67; PULSE 89; RESP 18; TEMP 37; O2SAT 95
[2019-06-08] MEDS: Enoxaparin 30 MG/0.3 ML SYR SC (07:45)
[2019-06-08] MEDS: Hydroxychloroquine 200 MG TAB PO (07:45)
[2019-06-08] MEDS: Ibuprofen 400 MG TAB PO (07:46)
[2019-06-08] MEDS: Multivitamin w/Minerals TAB 1 TAB PO (07:46)
[2019-06-08 08:00] VITALS: BP 131/77; PULSE 89; RESP 18; TEMP 36.7; O2SAT 94
--- NOTE | 2019-06-08 08:42 | W.PM.PROGNOT ---
Date of Service Date of service: 06/08/19 Time of Service: 08:42 Subjective Interval history since last seen: Patient is feeling well anxious to go home. She achieved 90 degrees of knee flexion and PT yesterday she took a shower. She had some serosanguineous drainage from the inferior portion of the wound only the wound itself appears benign. She had a mild elevated temperature to 100.8 last night. She is afebrile this morning she has had no increasing pain and has not been on any narcotic pain medications in 2 days Exam Extrem Other: Wound has a benign appearance there is no cellulitis there is a scant amount of drainage from the most inferior portion of the incision. It does not appear to be purulent. It is basically stopped draining since the bandage was changed yesterday morning Objective Objective Clinical Data: Vital Signs Temperature 98.6 F 06/08/19 03:45 Temperature Source Tympanic 06/08/19 03:45 Pulse 89 06/08/19 03:45 Pulse Rhythm Regular 06/07/19 20:00 Respiratory Rate 18 06/08/19 03:45 Respiratory Effort Non-Labored 06/07/19 20:00 Respiratory Depth Normal 06/07/19 20:00 Respiratory Pattern Normal 06/07/19 20:00 Blood Pressure 107/67 06/08/19 03:45 Blood Pressure Mean 86 06/04/19 13:15 Blood Pressure Position Supine 06/04/19 13:15 Pulse Oximetry 95 06/08/19 03:45 Respiratory End-tidal CO2 39 06/04/19 12:50 Oxygen Delivery Method Cpap 06/08/19 03:45 Oxygen Flow Rate 0 06/08/19 03:45 Pain Level 4 06/08/19 07:46 Comment 06/08/19 03:45 Intake & Output 06/07/19 06/07/19 06/08/19 11:59 23:59 11:59 Intake Total 240 / 1130 890 / 1130 250 / 250 Output Total 400 / 700 300 / 700 Balance -160 / 430 590 / 430 250 / 250 Weight 315 lb 11.231 oz 316 lb 12.868 oz Intake: Oral 240 / 1130 890 / 1130 250 / 250 Output: Urine 400 / 700 300 / 700 Other: Urine Color Yellow Yellow Urine Appearance Clear Clear Urine Odor None Comment pt got up with help from spouse during the night. Voiding Methods Bedside Commode Toilet Laboratory Results WBC 11.33 k/cumm (4.4-10.8) H 06/06/19 06:25 RBC 3.67 m/cumm (4.00-5.20) L 06/06/19 06:25 Hgb 9.2 g/dL (12.0-15.5) L 06/06/19 06:25 Hct 30.0 % (36.0-46.0) L 06/06/19 06:25 MCV 81.7 fL (80-95) 06/06/19 06:25 MCH 25.1 pg (27.0-33.0) L 06/06/19 06:25 MCHC 30.7 g/dL (32.0-36.0) L 06/06/19 06:25 RDW 17.7 % (11.7-14.6) H 06/06/19 06:25 Plt Count 191 x1000/uL (130-400) 06/06/19 06:25 MPV 10.9 fL (8.0-11.0) 06/06/19 06:25 Sodium 139 mmol/L (136-145) 06/06/19 06:25 Potassium 4.4 mmol/L (3.5-5.1) 06/06/19 06:25 Chloride 106 mmol/L (98-107) 06/06/19 06:25 Carbon Dioxide 25.5 mmol/L (21.0-32.0) 06/06/19 06:25 7.5 mmol/L (3-11) 06/06/19 06:25 BUN 8 mg/dL (7-18) 06/06/19 06:25 0.72 mg/dL (0.55-1.02) 06/06/19 06:25 >= 60.00 (mL/min/1.73m2) 06/06/19 06:25 Glucose 103 mg/dL (70-100) H 06/06/19 06:25 Calcium 8.4 mg/dL (8.5-10.1) L 06/06/19 06:25
--- NOTE | 2019-06-08 08:45 | DSE_ITS ---
DS: Diagnosis Discharge Diagnosis (1) History of total right knee replacement (TKR): Status: Acute Discharge Plan Disposition Patient Disposition: HOME Condition: Improving Discharge Details Reason For Visit: TOTAL KNEE Admit Date/Time: 06/04/19 06:07 Admit Provider: Eugene Schwab Attending Provider: Eugene Schwab Primary Care Provider: Samantha Michelle V Home Meds and New Rx's Prescriptions: No Action hydroxychloroquine [Plaquenil] 200 mg tablet 200 mg PO BID RF: 0 esomeprazole magnesium [Nexium] 20 MG capsule,delayed release(DR/EC) 40 mg PO HS RF: 0 escitalopram oxalate [Lexapro] 20 MG tablet 20 mg PO HS RF: 0 levalbuterol tartrate 45 mcg/actuation HFA aerosol inhaler 2 inh IH Q4H Qty: 15 RF: 0 levalbuterol HCl [Xopenex] 1.25 MG/3 ML solution for nebulization 1.25 mg UPD Q2H PRN PRNQty: 1 RF: 0 levothyroxine 125 MCG tablet 125 mcg PO HS RF: 0 metoprolol succinate 25 mg tablet extended release 24 hr 25 mg PO HS RF: 0 alprazolam [Xanax] 0.25 mg Tablet 0.25 mg PO PRN PRNRF: 0 Zyrtec 10 mg Capsule 10 mg PO PRN PRNRF: 0 Discharge Instructions Additional Instructions: Use your new knee. You may place her full weight upon it usual walker for balance and prevent falls. Performing her physical therapy exercises at home on your own in addition to performing them in outpatient physical therapy which should start around 06/11/2019. Take your regular medications as before. Take Tylenol and ibuprofen for milder pain they may be taken simultaneously as they are metabolized differently and are not cross toxic take [place] 5-325 mg 1-2 every 4 hours for more serious pain. Make sure you take a multiple vitamin daily to help build back your blood count keep your wound open to the air once the drainage from the inferior portion of the incision stops. You may get the juvencio wet in the shower with soap and water gently pat them dry if the juvencio catch on your clothing then cover them with a light layer of gauze if you are able to comfortably get an elastic stockings on your lower legs continue to use them during the day if that is not possible keep your legs elevated as necessary to minimize risk of deep venous thrombosis take a baby aspirin, 81 mg, twice daily for the next 2 weeks as a measure to prevent DVT Follow-up with in 7-10 days for staple removal Stand Alone Forms: Nursing Discharge Form Referrals: Eugene Schwab MD [ [facility] STAFF PHYSICIAN] - Activity:: Activity as Tolerated Equipment/Supplies:: Walker Diet:: Carb Counting Discharge Orders Discharge Orders: Discharge Order (Routine); Ordered 06/08/19 Ordered By: Eugene Schwab DS: Data Vitals/I&O Vitals and I&O: Vital Signs Temperature 98.6 F 06/08/19 03:45 Temperature Source Tympanic 06/08/19 03:45 Pulse 89 06/08/19 03:45 Pulse Rhythm Regular 06/07/19 20:00 Respiratory Rate 18 06/08/19 03:45 Respiratory Effort Non-Labored 06/07/19 20:00 Respiratory Depth Normal 06/07/19 20:00 Respiratory Pattern Normal 06/07/19 20:00 Blood Pressure 107/67 06/08/19 03:45 Blood Pressure Mean 86 06/04/19 13:15 Blood Pressure Position Supine 06/04/19 13:15 Pulse Oximetry 95 06/08/19 03:45 Respiratory End-tidal CO2 39 06/04/19 12:50 Oxygen Delivery Method Cpap 06/08/19 03:45 Oxygen Flow Rate 0 06/08/19 03:45 Pain Level 4 06/08/19 07:46 Comment 06/08/19 03:45 Intake & Output 06/07/19 06/07/19 06/08/19 11:59 23:59 11:59 Intake Total 240 / 1130 890 / 1130 250 / 250 Output Total 400 / 700 300 / 700 Balance -160 / 430 590 / 430 250 / 250 Weight 315 lb 11.231 oz 316 lb 12.868 oz Intake: Oral 240 / 1130 890 / 1130 250 / 250 Output: Urine 400 / 700 300 / 700 Other: Urine Color Yellow Yellow Urine Appearance Clear Clear Urine Odor None Comment pt got up with help from spouse during the night. 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) History of postoperative nausea and vomiting (Acute) Hx of ectopic (Acute) Hx of iron deficiency anemia (Acute) Lone atrial fibrillation (Acute) GINO on CPAP (Chronic) Surgical History (Updated 06/08/19 @ 08:44 by Eugene Schwab MD) History of appendectomy (Chronic) History of arthroplasty of knee (Acute) History of arthroscopy of left knee (Acute) History of carpal tunnel release (Acute) History of colonoscopy (Chronic) History of esophagogastroduodenoscopy (EGD) (Chronic) History of prior ablation treatment (Acute) History of tonsillectomy (Chronic) History of total right knee replacement (TKR) (Acute) Hx of basal cell carcinoma excision (Acute) Hx of cholecystectomy (Chronic) Hx of dilation and curettage (Acute) Family History (Updated 05/26/19 @ 14:04 by Bethanie Syed RN) Other Diabetes FHx: allergies Family hx of ALS (amyotrophic lateral sclerosis) Social History Smoking/Tobacco Use Status: Former Tobacco Use Drug use: Never
[2019-06-08] MEDS: Ondansetron O.D.T. 4 MG TABEF PO (09:52)
[2019-06-08] MEDS: HYDROcodone 5/Acetaminophen 325 TAB PO (09:59)
--- NOTE | 2019-06-08 10:28 | PT.INTREAT ---
Date of service: 06/08/19 Time of Service: 09:00 PT Notes Inpatient Physical Therapy Treatment Note [facility] Date: 06/08/19 PRECAUTIONS Standard SUBJECTIVE: Pt reports that she is doing well today and would like to go home today. OBJECTIVE: Sit-stand: SBA Stand-sit: SBA GAIT Assistive Device: FWW Weight bearing: WBAT Assist: CGA/SBA Distance: 40ft VITALS: Oxygen in the low 90's THEREX: Pt completed LE strengthening ther ex as per flow sheet and was also given a hand out on HEP for LE strengthening ther ex. Pt received AAROM into knee flexion while in the seated position. Pt felt more swollen today so it was slightly more sore during her ROM. PT was able to achieve approx 85 degrees knee flexion today. STAIRS: Pt completed up 3 steps down 3 streps utilizing both railing the first time and 1 railing the second time. ASSESSMENT: Pt tolerate today's session very well today and is very motivated to go home. PLAN: Cont as per PT POC. TREATMENT CODE/TIME: 08-04:30 30) TAx2
[2019-06-08 11:12] VITALS: BP 101/65; PULSE 90; RESP 18; TEMP 37; O2SAT 90
--- NOTE | 2019-06-08 16:32 | PDOC.CMDIS ---
LACE Index Scoring Tool - Questions: Length of Stay (in days): 4 - 6 Acuity (Admit via E.D.?): No E.D. Visits: 0 - Answers: Total Score: 4 Risk of Readmission: Low Risk Care Management Discharge Reason for Hospitalization: R TKA Discharge Plan: Brandi will discharge home when ready per MD. She will attend OP/PT with [facility] in [facility]. She will transport via private vehicle with her , Tony. Patient/Family Education Needs: Review discharge instructions, discuss Ask Me Three. Services Needed at Discharge: Physical Therapy ([facility])
--- NOTE | 2019-06-09 09:15 | INDS_ITS ---
Date of service: 06/09/19 PT Notes Inpatient Physical Therapy Discharge Summary Dates: 06/09/2019 Dates of Service: 06/04/2019 through 06/08/2019 This is a clinical summary of care provided on the duration of dates listed above. No charge was made in the completion of this documentation. Referring Doctor: Eugene Schwab MD PT Orders: PT CONSULT: 64-year-old white female BMI 45, status post right total knee arthroplasty on 06/04/2019. Up in chair tomorrow, weightbearing as tolerated on right with walker. Patient had successful left total knee 6 years ago. Precautions: Fall. Standard. WBAT on right LE. Patient Profile/Admitting Diagnosis: Patient is a 64-year-old female with end-s tage osteoarthritis of right knee status post cemented right total knee arthroplasty on post operative day 1 PMHX: History of total left knee replacement Morbid obesity Hypothyroidism Depression GERD Status post carpal tunnel release Primary osteoarthritis of right knee Social History/Home Situation: Patient lives with in a 1 floor house with 4 steps to enter a rail on the left going up. 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 She is independent with all aspects of ADLs without the need for an assistive ambulatory device nor adaptive equipment. Current Functional Limitations: Need for assistance for all transfers and ambulation task performance using front wheeled Equipment Owned/DME: Front wheel walker, straight cane, shower chair, grab bars Subjective: NT Objective: General Observation: NT Mental Status: NT Pain: NT ROM: Right Upper Extremity: Shoulder Flexion WFL. Shoulder abduction WFL. Elbow flexion WFL. Wrist flexion WFL. Functional opening and closing of hand WFL. Left Upper Extremity: Shoulder Flexion WFL. Shoulder abduction WFL. Elbow flexion WFL. Wrist flexion WFL. Functional opening and closing of hand WFL. Right Lower Extremity: Hip flexion NT. Hip abduction NT. Knee flexion NT. Ankle dorsiflexion WFL. Ankle plantarflexion WFL. Left Lower Extremity: Hip flexion WFL. Hip abduction WFL. Knee flexion WFL. An kle dorsiflexion WFL. Ankle plantarflexion WFL. Strength: Right Upper Extremity: Shoulder flexors 5/5. Shoulder abductors 5/5. Elbow flexors 5/5. Elbow extensors 5/5. Cert Pharmacy Tech strong. Left Upper Extremity: Shoulder flexors 5/5. Shoulder abductors 5/5. Elbow flexors 5/5. Elbow extensors 5/5. Cert Pharmacy Tech strong. Right Lower Extremity: Hip flexors 3-/5. Hip abductors 4-/5. Knee flexors unable to test due to pain. Knee extensors unable to test due to pain. Ankle dorsiflexors 3+/5. Ankle plantarflexors 4-/5. Left Lower Extremity:Hip flexors 5/5. Hip abductors 5/5. Knee flexors 5/5. Knee extensors 5/5. Ankle dorsiflexors 5/5. Ankle plantarflexors 5/5. Sensation: Intact as to pain and pressure on left lower extremity. Reports diminished sensation as to pressure on the medial aspect of right thigh and leg. Bed Mobility/Transfers: Rolling I Supine to sit I Sit to stand SBA Stand to sit SBA Bed to chair SBA Chair to bed SBA Gait: Patient was able to tolerate short distance ambulation of 40 feet requ irin CGA with the use of front wheeled walker using step to gait pattern with report of no pain. Balance: Static Sitting: Good Dynamic Sitting: Good Static Standing: Fair Dynamic Standing: Fair Assessment: Patient is a 64-year-old female with end-stage osteoarthritis of right knee status post cemented right total knee arthroplasty on post operative day 1. Patient presents with clinical signs and symptoms consistent with current/admitting diagnoses that have resulted to mobility limitations, gait instability, generalized weakness, and impairment of motor control as demonstrated by the following impairment level findings: 1. Decreased strength to R LE major muscle groups 2. Impaired sitting/standing balance 3. Impaired activity tolerance 4. Limitation of joint range of motion in R knee Impairments are contributing to the following functional limitations: 1. Dependent bed mobility skills 2. Increased dependence with transfers 3. Inability to safely ambulate without assistive device and physical assistance 4. Increase completion time for mobility ADL performance 5. Increased fall risk 6. Inability to negotiate steps alone safely Goals: Goals X1 week 1. Supine-Sit independent NOT MET 2. Sit-Supine independent NOT MET 3. Sit-Stand independent NOT MET 4. Stand-Sit independent NOT MET 5. Bed-Chair independent NOT MET 6. Chair-Bed independent NOT MET 7. Independent gait on level surface with use of least restrictive device for at least 300 feet without report of pain nor dyspnea NOT MET 8. Independent stair negotiation while holding onto bilateral rails for at least 10 steps without report of pain nor dyspnea NOT MET 9. Independent with home exercise program NOT MET 10. Good static and dynamic standing balance/tolerance NOT MET DISCHARGE RECOMMENDATIONS: May benefit from the use of a front wheeled walker vs. bilateral axillary crutches at time of discharge. May benefit from skilled physical therapy services according to orthopedic surgeon timeline recomm endations. Patient will be educated and trained on home exercise program per TKA exercise protocol in preparation for outpatient physical therapy services. TREATMENT CODE/TIME: NT. Thank you very much for this referral. Suzanne Stern PT, DPT, CLT [facility]
== END 2019-06-08 11:48 | disposition home or self-care (01) | DRG 470 ==
LOC: PDS 06:07 → ICU 11:39 → MS 18:25
PROVIDERS: Admitting Provider Orthopaedic Surgery; PCP Family Medicine; Visit Provider Orthopaedic Surgery
PROC: 0SRC0J9 Replacement of Right Knee Joint with Synthetic Substitute, Cemented, Open Approach (ICD-10-PCS; CPT 27447; principal; 2019-06-04 07:30)
DX: M17.11 Unilateral primary osteoarthritis, right knee (principal); Z68.42 Body mass index [BMI] 45.0-49.9, adult; D62 Acute posthemorrhagic anemia; Z96.651 Presence of right artificial knee joint; G47.33 Obstructive sleep apnea (adult) (pediatric); I10 Essential (primary) hypertension; K21.9 Gastro-esophageal reflux disease without esophagitis; Z96.652 Presence of left artificial knee joint; G89.18 Other acute postprocedural pain; E66.01 Morbid (severe) obesity due to excess calories; R09.02 Hypoxemia; Y83.1 Surgical operation with implant of artificial internal device as the cause of abnormal reaction of the patient, or of later complication, without mention of misadventure at the time of the procedure; R50.82 Postprocedural fever
CPT/HCPCS: 27447; 36415; 76942; 80048; 85027; 88305; 97110; 97162; 97530; NC; 73560; 94640; J1100; J1650; J1885; J2060; J2250; J2405; J3010; J7614; L1830

== ENCOUNTER 2019-09-19 08:40 | Outpatient (CLI) | payer OTHER, SELFPAY ==
--- NOTE | 2019-09-19 07:51 | DI.RAD_ITS ---
EXAM: XR KNEE RT 4V AP,LAT,RENATA,PAT CLINICAL HISTORY: pain after R TKA TECHNIQUE: COMPARISON: XR knee RT 2V AP,lat from 06/04/2019 FINDINGS: Five views were obtained and show total knee joint replacement in position. The components appear we ll seated. No other significant bony abnormality seen. IMPRESSION:
== END 2019-09-19 09:00 ==
PROVIDERS: PCP Family Medicine; Visit Provider Student in an Organized Health Care Education/Training Program
DX: M25.561 Pain in right knee (principal); Z96.651 Presence of right artificial knee joint
CPT/HCPCS: 73564

== ENCOUNTER 2020-06-25 16:48 | Outpatient (REF) | payer OTHER, SELFPAY ==
[2020-06-25 19:38] LABS: Hemoglobin A1C 6.2 % (3.8-5.6)
[2020-06-25 19:45] LABS: FREE T4 1.06 ng/dL (0.76-1.46); TSH 1.98 uIU/mL (0.36-3.74)
== END 2020-06-25 17:08 ==
LOC: NCHCN 16:48
PROVIDERS: PCP Family Medicine; Visit Provider Family Medicine
DX: E03.9 Hypothyroidism, unspecified (principal); E66.9 Obesity, unspecified
CPT/HCPCS: 83036; 84439; 84443

== ENCOUNTER 2020-09-13 01:14 | Outpatient (CLI) | payer OTHER, SELFPAY ==
--- NOTE | 2020-09-13 | DI.MAMMO_ITS ---
EXAM: MAMMO SCREENING CLINICAL HISTORY: SCREENING,Z12.31 TECHNIQUE: Mammograms were interpreted according to the usual protocol including computer analysis w [employer] CAD system, tomosynthesis and C-view imaging. COMPARISON: 2010 through 2016 FINDINGS: The breasts are composed of scattered fibroglandular densities, Breast Density category B. No suspicious masses or suspicious microcalcifications are seen. No skin thickening or abnormal axillary lymph nodes are seen. There has been no significant change from prior exams. IMPRESSION: BI-RADS Category 1, Negative mammogram Yearly screening mammography is recommended. Breast Density - Category B, scattered fibroglandular densities. A negative radiographic report should not delay biopsy if a dominant or clinically suspicious mass is present. Up to ten percent of cancers are not identified on mammography. A negative report may reinforce clinical impression. Adenosis and dense breasts may obscure an underlying neoplasm. False positive reports average 6 to 10%. Patient will receive a letter notifying them of these results.
== END 2020-09-13 01:34 ==
PROVIDERS: PCP Family Medicine; Visit Provider Family Medicine
DX: Z12.31 Encounter for screening mammogram for malignant neoplasm of breast (principal)
CPT/HCPCS: 77063; 77067

== ENCOUNTER 2021-08-04 03:11 | Outpatient (CLI) | payer OTHER, SELFPAY ==
[2021-08-04 12:32] LABS: Abs Immature Grans 0.05 10^3/uL (0.0-0.06); Absolute Basophil Count 0.04 10^3/uL (0.0-0.2); Absolute Eosinophil Count 0.41 10^3/uL (0.0-0.7); Absolute Lymphocyte Count 1.96 10^3/uL (1.2-3.4); Absolute Monocyte Count 0.61 10^3/uL (0.1-0.8); Absolute Neutrophil Count 5.84 10^3/uL (1.2-6.7); Basophils % 0.4; Eosinophils % 4.6; HCT 37.7 % (36.0-46.0); HGB 11.7 g/dL (11.2-15.7); Immature Grans % 0.6; MCH 25.9 pg (27.0-33.0); MCV 83.6 fL (80-95); MPV 9.8 fL (8.0-11.0); Monocytes % 6.8; Neutrophils % 65.6; Nucleated RBC 0 %; Platelet Count 260 10^3/uL (130-400); RBC 4.51 10^6/uL (3.93-5.22); RDW 17.8 % (11.7-14.6); WBC 8.91 10^3/uL (4.4-10.8)
[2021-08-04 14:25] LABS: ALT 26 U/L (14-59); AST 19 U/L (15-37); Albumin 3.6 g/dL (3.4-5.0); Alkaline Phosphatase 104 U/L (46-116); Anion Gap 9.8 mmol/L (3-11); BUN 12 mg/dL (7-18); Bilirubin, Total 0.3 mg/dL (0.2-1.0); CO2 26.2 mmol/L (21.0-32.0); CREATININE 0.7 mg/dL (0.55-1.02); Chloride 104 mmol/L (98-107); Glucose 91 mg/dL (74-106); Potassium 4.5 mmol/L (3.5-5.1); Sodium 140 mmol/L (136-145); TSH (W/Ref FT4) 1.57 uIU/mL (0.36-3.74); Total Protein 7.1 g/dL (6.4-8.2)
[2021-08-05 09:44] LABS: Parathyroid Hormone,Intact 62 pg/mL (19-88)
== END 2021-08-04 03:12 | disposition home or self-care (01) ==
LOC: LBO 03:11
PROVIDERS: Nurse Practitioner Family; PCP Family Medicine; Visit Provider Dermatology
DX: E83.52 Hypercalcemia (principal); E03.9 Hypothyroidism, unspecified; Z79.899 Other long term (current) drug therapy
CPT/HCPCS: 36415; 80053; 83970; 84443; 85025

== ENCOUNTER 2021-09-13 18:14 | Outpatient (REF) | payer OTHER, SELFPAY ==
[2021-09-14 22:32] LABS: COVID-19 RT-PCR UVMMC Result Negative (Negative)
== END 2021-09-13 18:15 | disposition home or self-care (01) ==
LOC: LBN 18:14
PROVIDERS: PCP Family Medicine; Visit Provider Nurse Practitioner Pediatrics
DX: Z20.822 Contact with and (suspected) exposure to COVID-19 (principal)
CPT/HCPCS: U0003

== ENCOUNTER 2021-09-22 17:00 | Outpatient (REF) | payer OTHER, SELFPAY ==
[2021-09-23 13:27] LABS: COVID-19 RT-PCR UVMMC Result Negative (Negative)
== END 2021-09-22 17:01 | disposition home or self-care (01) ==
LOC: LBN 17:00
PROVIDERS: PCP Family Medicine; Visit Provider Nurse Practitioner Family
DX: Z20.822 Contact with and (suspected) exposure to COVID-19 (principal)
CPT/HCPCS: U0003

== ENCOUNTER 2022-01-13 13:16 | Outpatient (REF) | payer OTHER, SELFPAY ==
--- NOTE | 2022-01-13 11:00 | PAPFT_PTH ---
PATIENT: Brandi Ruiz LOC: [facility] U#:[id number] AGE/SX: 66/F ROOM: RE01/13/[address]: Luh Vazquez MD : 1955 BED: DIS: 01/13/2022 SPEC #: [id number] RECD: 01/13/22 13:20 STATUS: SOLANGE REJolene #: [id number] RADHA: 01/13/22 11:[address]: Luh Vazquez DEPT: [facility] Cytology RECD BY: Nadia Boateng ENTERED: 01/13/22 13:20 SP TYPE: PAPFT OTHR DR: Samantha Michelle V Tissues: 1 - CX/ENDOCX FOR PAP SMEARS Procedures: PAP THIN PREP/UVM Screening HPV DNA PROBE Comments: [id number]
== END 2022-01-13 13:17 | disposition home or self-care (01) ==
LOC: LBN 13:16
PROVIDERS: PCP Family Medicine; Visit Provider Obstetrics & Gynecology
DX: N94.89 Other specified conditions associated with female genital organs and menstrual cycle (principal); Z12.4 Encounter for screening for malignant neoplasm of cervix; Z11.51 Encounter for screening for human papillomavirus (HPV)
CPT/HCPCS: 88142; 87480; 87510; 87624; 87660

== ENCOUNTER 2022-01-13 18:49 | Outpatient (REF) | payer OTHER, SELFPAY | END 2022-01-13 18:50 | disposition home or self-care (01) | LOC: LBN 18:49 | PROVIDERS: PCP Family Medicine; Visit Provider Obstetrics & Gynecology ==

== ENCOUNTER 2022-02-08 10:27 | Outpatient (REF) | payer OTHER, SELFPAY ==
[2022-02-08 09:19] LABS: Source Nasal/Nares
[2022-02-08 09:57] LABS: COVID-19 PCR Negative (Negative)
== END 2022-02-08 10:28 | disposition home or self-care (01) ==
LOC: LBN 10:27
PROVIDERS: PCP Family Medicine; Visit Provider Nurse Practitioner Family
DX: Z20.822 Contact with and (suspected) exposure to COVID-19 (principal)
CPT/HCPCS: 87635

== ENCOUNTER → 2022-03-27 01:09 | Outpatient (CLI) | payer OTHER, SELFPAY ==
--- NOTE | 2022-03-27 | DI.MAMMO_ITS ---
Exam(s) MAMMO SCREENING EXAM: MAMMO SCREENING CLINICAL HISTORY: SCREENING, Z12.31 TECHNIQUE: Mammograms were interpreted according to the usual protocol including computer analysis w [employer] CAD system, tomosynthesis and C-view imaging. COMPARISON: 2012 through 2019 FINDINGS: The breasts are composed of scattered fibroglandular densities, Breast Density category B. No suspicious masses or suspicious microcalcifications are seen. No skin thickening or abnormal axillary lymph nodes are seen. There has been no significant change from prior exams. A cardiac monitoring device is now seen overly ing the posteromedial portion of the left breast. IMPRESSION: BI-RADS Category 1, Negative mammogram Yearly screening mammography is recommended. Breast Density - Category B, scattered fibroglandular densities. A negative radiographic report should not delay biopsy if a dominant or clinically suspicious mass is present. Up to ten percent of cancers are not identified on mammography. A negative report may reinforce clinical impression. Adenosis and dense breasts may obscure an underlying neoplasm. False positive reports average 6 to 10%. Patient will receive a letter notifying them of these results.
== END ==
PROVIDERS: PCP Family Medicine; Visit Provider Family Medicine
DX: Z12.31 Encounter for screening mammogram for malignant neoplasm of breast (principal)
CPT/HCPCS: 77063; 77067

== ENCOUNTER 2022-05-01 03:53 | Outpatient (CLI) | payer OTHER, SELFPAY | END 2022-05-01 03:54 | disposition home or self-care (01) | LOC: LBO 03:53 | PROVIDERS: PCP Family Medicine; Visit Provider Internal Medicine Critical Care Medicine ==

== ENCOUNTER 2022-05-08 04:29 | Outpatient (CLI) | payer OTHER, SELFPAY ==
[2022-05-08 11:14] LABS: Abs Immature Grans 0.06 10^3/uL (0.0-0.06); Absolute Basophil Count 0.05 10^3/uL (0.0-0.2); Absolute Eosinophil Count 0.34 10^3/uL (0.0-0.7); Absolute Lymphocyte Count 1.88 10^3/uL (1.2-3.4); Absolute Monocyte Count 0.58 10^3/uL (0.1-0.8); Absolute Neutrophil Count 6.56 10^3/uL (1.2-6.7); Basophils % 0.5; Eosinophils % 3.6; HCT 38.6 % (36.0-46.0); Immature Grans % 0.6; Lymphocytes % 19.9; MCH 24.5 pg (27.0-33.0); MCHC 31.1 % (32.0-36.0); MCV 79 fL (80-95); MPV 9.9 fL (8.0-11.0); Monocytes % 6.1; Neutrophils % 69.3; Platelet Count 242 10^3/uL (130-400); RDW 17.2 % (11.7-14.6); RDW-SD 48.8 fL; WBC 9.47 10^3/uL (4.4-10.8)
[2022-05-08 11:44] LABS: TSH 1.49 uIU/mL (0.36-3.74)
[2022-05-08 11:51] LABS: Hemoglobin A1C 6.7 % (<5.7)
[2022-05-08 15:29] LABS: Calculated LDL 110 mg/dL (<100); Cholesterol 197 mg/dL (<200); HDL Cholesterol 41 mg/dL (40-60); Triglyceride 231 mg/dL (<150)
== END 2022-05-08 04:30 | disposition home or self-care (01) ==
PROVIDERS: Obstetrics & Gynecology Gynecologic Oncology; PCP Family Medicine; Visit Provider Internal Medicine Critical Care Medicine
DX: Z00.00 Encounter for general adult medical examination without abnormal findings (principal); R73.03 Prediabetes; Z13.29 Encounter for screening for other suspected endocrine disorder; Z13.220 Encounter for screening for lipoid disorders; J45.40 Moderate persistent asthma, uncomplicated
CPT/HCPCS: 36415; 80061; 82784; 83036; 84443; 85025

== ENCOUNTER 2022-09-15 01:20 | Outpatient (RCR) | payer OTHER, SELFPAY ==
--- OUTSIDE RECORDS SUMMARY | 2022-09-15 01:23 | XMS_ITS | Encounter Summary ---
:1955 Author Organization [facility] Address [address] [place] [address] Care Team Providers Name Role Phone Unknown, Provider Primary Care Provider Encounter Details Date Type Department Care Team Description 05/08/2022 Lab Requisition [facility] Outr Resulting Lab, Pathology & Laboratory Provider General acute hospital [address] [place] [address] Social History Tobacco Use Types Packs/Day Years Used Date Never Assessed Sex Assigned at Date Recorded Not on file documented as of this encounter Plan of Treatment Not on filedocumented as of this encounter Procedures Procedure Name Priority Date/Time Associated Diagnosis Comme nts IMMUNOGLOBULINS Routine 05/08/2022 11:10 EDT Resu lts for this procedure are i n the results section. documented in this encounter Results IMMUNOGLOBULINS (05/08/2022 11:10 EDT) Pathologist Sig nature IgG 1,252 610-1,616 mg/dL [facility] IgA 357 85 - 499 mg/dL [facility] IgM 63 35 - 242 mg/dL [facility] Specimen Blood - Venous blood (substance) Performing Organization Address City/State/ZIP Code Phon e Number [facility] [address] [place] [address] SERVICES documented in this encounter Visit Diagnoses Not on filedocumented in this encounter Care Teams Vamp Liner Relationship Specialty Start Date End Date Unknown, Provider, PCP - General 04/29/10 documented as of this encounter
--- OUTSIDE RECORDS SUMMARY | 2022-09-15 01:23 | XMS_ITS | Encounter Summary ---
:1955 Author Organization [facility] Address [address] [place] [address] Care Team Providers Name Role Phone Unknown, Provider Primary Care Provider Encounter Details Date Type Department Care Team Description 02/21/2013 Results Only [facility] Ghada Michelle MD Laboratory Services - [address] [address] [address] [facility] [place], [place] [id number] [phone] Social History Tobacco Use Types Packs/Day Years Used Date Never Assessed Sex Assigned at Date Recorded Not on file documented as of this encounter Plan of Treatment Not on filedocumented as of this encounter Procedures Procedure Name Priority Date/Time Associated Diagnosis Comme nts PAP TEST- RESULT Routine 02/21/2013 0:00 EDT Resu lts for this ONLY procedure are i n the results section. documented in this encounter Results PAP TEST- RESULT ONLY (02/21/2013 0:00 EDT) Pathology Report: CYTOPATHOLOGY REPORT [facility] Reports generated via electronic interface contain faustino ginal data; however they are lacking the format of the original re port. Caution should be taken when reading/interpreting unfo rmatted reports. Name: ? BRANDI RUIZ ? Accession #: ? [id number] : ? 1955 (Age: 57) ??F ?Collect Date: ? 01/25 Location: ? [facility] ? Receive Date : ? 02/25/2013 Provider: ?OLAF MICHELLE MD Copy to: ? Specimen/Source: ? Pap Test, Cervix/Endocervix, ThinPrep Imaging System with manual evaluation Last Menstrual Period: ? YEARS ? SPECIMEN ADEQUACY ? Satisfactory for Evaluation - transformation zone component present GENERAL CATEGORIZATION ? Negative for Intraepithelial Lesion or Malignan cy INTERPRETATION ? Reactive cellular benson nges associated with inflammation present (includes repair). ? Document reviewed and electronically signed by: ? CALVIN REYNOSO MD ? Report Date: ??03/04/2013 15:32 End of Report Specimen Performing Organization Address City/State/ZIP Code Phon e Number [facility] [address] [place] [address] SERVICES [facility] [address] [place] [address] documented in this encounter Visit Diagnoses Not on filedocumented in this encounter Care Teams Night Stocker Relationship Specialty Start Date End Date Unknown, Provider, PCP - General 04/29/10 documented as of this encounter
--- OUTSIDE RECORDS SUMMARY | 2022-09-15 01:23 | XMS_ITS | Encounter Summary ---
:[address] [facility] Address [address] [place] [address] Care Team Providers Name Role Phone Unknown, Provider Primary Care Provider Encounter Details Date Type Department Care Team Description 04/13/2011 Results Only [facility] Courtney Cabello MD Laboratory Services - [address] [place] [address] [place] [address] Social History Tobacco Use Types Packs/Day Years Used Date Never Assessed Sex Assigned at Date Recorded Not on file documented as of this encounter Plan of Treatment Not on filedocumented as of this encounter Procedures Procedure Name Priority Date/Time Associated Diagnosis Comme [facility] SURGICAL PATHOLOGY Routine 04/13/2011 0:00 EDT Re sults for this procedure are i n the results section. documented in this encounter Results SURGICAL PATHOLOGY (04/13/2011 0:00 EDT) Pathologist [facility] Pathology SURGICAL PATHOLOGY REPORT ? NATHANIEL CARRANZA Report: Reports generated via electr [employer] interface contain original data; ? LAB however they are lacking the format of the original report. ? Caution should be taken when reading/interpreting unformatted reports. ? Name: ? MARLENY, MILANA D ? Accession #: ? [id number] ? : ? 1955 (Age: 55) ??F ? Collec t Date: ? 04/13/2011 ? Location: ? [facility] ? R eceive Date: ? 04/14/2011 ? Provider: COURTNEY DENNIS MD ? Copy to: OLAF BERRIAN MD ? Final Pathologic Diagnosis: ? Endometrium, biopsy: ? 1. ?Inactive an d secretory endometrium. ? 2. ? Pseudodecidualized stroma consistent with exogenous hormone effect. ??See comment ? 3. ? Tubal metaplasia. ? Comment: ? This case was discuss ed with Dr. Courtney Cabello on April 19, 2011, via ? telephone. ??(Dr. Perez) ? Document reviewed and electr onically signed by: ? AURELIO PEREZ MD ? Report ??Date: 04/19/2011 18 :06 ? By the signature above, the attending physician certifies that he/she has ? personally conducted a gross and/or microscopic examination of the described ? specimens and rendered or co nfirmed the above diagnosis. ? Specimen(s) Received: ? Endometrium ? Clinical History: ? Menometrorrhagia ? Gross Description: ? Received in formalin labelled Milana Ruiz and endometrium is a 2.0 x 2.0 x 0.8 cm aggregate of pi nk-monsivais soft tissue admixed with a small amount of ?? red-brown, hemorrhagic soft tissue. ??The specimen is filtered and entirely ? submitted as (A1) and (A2). ??(L. Rice)/cjh ? End of Report ? Specimen Performing Organization Address City/State/ZIP Code Phon e Number [facility] [address] [place] [address] SERVICES [facility] [address] [place] [address] documented in this encounter Visit Diagnoses Not on filedocumented in this encounter Care Teams Janitorial Account Manager Relationship Specialty Start Date End Date Unknown, Provider, PCP - General 04/29/10 documented as of this encounter
--- OUTSIDE RECORDS SUMMARY | 2022-09-15 01:23 | XMS_ITS | Encounter Summary ---
:1955 Author Organization [facility] Address [address] [place] [address] Care Team Providers Name Role Phone Unknown, Provider Primary Care Provider Encounter Details Date Type Department Care Team Description 06/04/2019 Results Only [facility] Eugene Couch MD [phone] [facility] [facility] [place] [address] (Wo rk) Social History Tobacco Use Types Packs/Day Years Used Date Never Assessed Sex Assigned at Date Recorded Not on file documented as of this encounter Plan of Treatment Not on filedocumented as of this encounter Procedures Procedure Name Priority Date/Time Associated Diagnosis Comme [facility] SURGICAL PATHOLOGY Routine 06/04/2019 18:00 Resul ts for this EDT procedure are i n the results section. documented in this encounter Results SURGICAL PATHOLOGY (06/04/2019 18:00 EDT) Pathology SURGICAL PATHOLOGY REPORT [facility] MED[facility] Report: Reports generated via electronic interface conta in original data; CENTER LABORATORY however they are lacking the format of the original re port. SERVICES Caution should be taken when reading/interpreting unfo rmatted reports. Name: ? BRANDI FARMER ? Accession #: ? [id number] ? : ? 1955 (Age: 64 ) ??F ? Collect Date: ? 06/04/2019 ? Location: ? [facility] ? Receive Date: ? 06/04/20 19 ? Provider: EUGENE VILLAGOMEZ MD Copy to: OLAF DE SANTIAGO MD ? Final Pathologic Diagnosis: SYNOVIUM, RIGHT KNEE, RESECTION: - Chronic synovitis with papillary hyperplasia. ??See comment. Comment: The presence of focal lymphoid aggregates with patchy mild lymphoplasmacytic infiltrate raises the possibility of early rheumatoid arthritis. However, overall non-specific findings can be seen in osteoarth ritis. Clinical correlation with serologic s tudy is essential. This case was reviewed by Dr. Jesus Figueroa in consultation. Document reviewed and electronically signed by: Ana vAalos MD Report ??Date: 06/11/2019 06:22 By the signature above, the attending physician certif ies that he/she has personally conducted a gross and/or microscopic examin ation of the described specimens and rendered or confirmed the above diagnosi s. Specimen(s) Received: Synovium R knee Clinical History: Patient recently diagnosed with dermatomyositis, on Pl aquenil; patient has clinical evidence of osteoarthritis; R/O rheumat oid arthritis; ? plasma cells Gross Description: ? Received in formalin labelled with proper patient identification (initials W, J) and synovium R knee are multiple fragmen ts of monsivais to pale yellow soft tissue (2.5 x 2.2 x 1.0 cm in aggregate). No firm area s are identified. The specimen is entirely submitted in 1. LINH Lopez (ASCP) 06/05/2019 9:03 AM End of Report Specimen Performing Organization Address City/State/ZIP Code Phon e Number [facility] [address] [place] [address] SERVICES documented in this encounter Visit Diagnoses Not on filedocumented in this encounter Care Teams Soil Technician Relationship Specialty Start Date End Date Unknown, Provider, PCP - General 04/29/10 documented as of this encounter
--- OUTSIDE RECORDS SUMMARY | 2022-09-15 01:23 | XMS_ITS | Encounter Summary ---
:1955 Author Organization [facility] Address [address] [place] [address] Care Team Providers Name Role Phone Unknown, Provider Primary Care Provider Encounter Details Date Type Department Care Team Description 04/29/2010 Results Only [facility] Courtney Cabello MD Laboratory Services - [address] [place] [address] [place] [address] Social History Tobacco Use Types Packs/Day Years Used Date Never Assessed Sex Assigned at Date Recorded Not on file documented as of this encounter Plan of Treatment Not on filedocumented as of this encounter Procedures Procedure Name Priority Date/Time Associated Diagnosis Comme [facility] SURGICAL PATHOLOGY Routine 04/29/2010 0:00 EDT Re sults for this procedure are i n the results section. documented in this encounter Results SURGICAL PATHOLOGY (04/29/2010 0:00 EDT) Pathologist [facility] Pathology SURGICAL PATHOLOGY REPORT ? NATHANIEL CARRANZA Report: Reports generated via electr [employer] interface contain original data; ? LAB however they are lacking the format of the original report. ? Caution should be taken when reading/interpreting unformatted reports. ? Name: ? MARLENY, MILANA D ? Accession #: ? [id number] ? : ? 1955 (Age: 54) ??F ? Collec t Date: ? 04/29/2010 ? Location: ? [facility] ? R eceive Date: ? 04/29/2010 ? Provider: COURTNEY DENNIS MD ? Copy to: ? Final Pathologic Diagnosis: ? Endometrium, biopsy: ? 1. ?Secretory a nd weakly proliferative endometrium with breakdown ? changes, pseudodecidualizati on and papillary syncytial metaplasia. ??See comment. ? 2. ?? No hyperplasia or malignancy identified. ? 3. ?? Fragments of unremarka ble endocervical epithelium. ? Comment: ? These features are co nsistent with exogenous hormone effect. ??(Dr. ? Varallo)/mpl ? Document reviewed and electr onically signed by: ? Kimo Ciampa, MD ? Report ??Date: 05/04/2010 14 :07 ? By the signature above, the attending physician certifies that he/she has ? personally conducted a gross and/or microscopic examination of the described ? specimens and rendered or co nfirmed the above diagnosis. ? Specimen(s) Received: ? Endometrial curetting s ? Clinical History: ? Menorrhagia, fibroid uterus; LMP: Presently ? Gross Description: ? Received in formalin labelled Milana Ruiz and endometrial curettings is a 5.5 x 4.5 x 3.0 cm aggr egate of pink-monsivais focally hemorrhagic tissue ? fragments admixed with abund ant clotted blood. ??The specimen is submitted ? entirely as (A1) to (A20). ? ?(L. Rice)/tmg ? End of Report ? Specimen Performing Organization Address City/State/ZIP Code Phon e Number [facility] [address] [place] [address] SERVICES [facility] [address] [phone] documented in this encounter Visit Diagnoses Not on filedocumented in this encounter Care Teams Wood Treating Inspector Relationship Specialty Start Date End Date Unknown, Provider, PCP - General 04/29/10 documented as of this encounter
--- OUTSIDE RECORDS SUMMARY | 2022-09-15 01:23 | XMS_ITS | Encounter Summary ---
:1955 Author Organization [facility] Address [address] [place] [address] Care Team Providers Name Role Phone Unknown, Provider Primary Care Provider Encounter Details Date Type Department Care Team Description 04/20/2011 Results Only [facility] Courtney Cabello MD Laboratory Services - [address] [place] [address] [place] [address] Social History Tobacco Use Types Packs/Day Years Used Date Never Assessed Sex Assigned at Date Recorded Not on file documented as of this encounter Plan of Treatment Not on filedocumented as of this encounter Procedures Procedure Name Priority Date/Time Associated Diagnosis Comme [facility] SURGICAL PATHOLOGY Routine 04/20/2011 0:00 EDT Re sults for this procedure are i n the results section. documented in this encounter Results SURGICAL PATHOLOGY (04/20/2011 0:00 EDT) Pathologist [facility] Pathology SURGICAL PATHOLOGY REPORT ? NATHANIEL CARRANZA Report: Reports generated via electr [employer] interface contain original data; ? LAB however they are lacking the format of the original report. ? Caution should be taken when reading/interpreting unformatted reports. ? Name: ? MARLENY, MILANA D ? Accession #: ? [id number] ? : ? 1955 (Age: 55) ??F ? Collec t Date: ? 04/20/2011 ? Location: ? [facility] ? R eceive Date: ? 04/20/2011 ? Provider: COURTNEY DENNIS MD ? Copy to: OLAF BERRIAN MD ? Final Pathologic Diagnosis: ? A. ?Endometrium , curettage: ? 1. ?Polypoid fr agments of secretory endometrium with breakdown changes. 2. ? Inactive endometriu m with tubal metaplasia, stromal and glandular ? breakdown and pseudodecidual ized stroma consistent with exogenous hormone ? effect. ? 3. ? Fragments of benign endocervical and ectocervical mucosa. ? B. ?Cervix, les ion, biopsy: ? 1. ?Fragments o f benign squamous and glandular mucosa with chronic ? inflammation, granulation ti ssue and hemosiderin-laden macrophages. ??See ? comment. ? Comment: ? Deeper levels were ex amined on Part B. Dr. Yuliana Figueroa reviewed ? specimen (A) in consultation and agrees with the interpretation. (Dr. Shields)/mpl ? Document reviewed and electr onically signed by: ? LARISSA B JAIMIEAYErmias MD ? Report ??Date: 04/27/2011 13 :25 ? By the signature above, the attending physician certifies that he/she has ? personally conducted a gross and/or microscopic examination of the described ? specimens and rendered or co nfirmed the above diagnosis. ? Specimen(s) Received: ? A. ?Endometrial curettings ? B. ? Cervical lesion ? Clinical History: ? DUB on Provera ? Gross Description: ? Received in formalin labelled Milana Ruiz and endometrial curettings are approximately 8cc of tony tted blood admixed with multiple fragments of ? red-brown tissue. ??The spec imen is submitted entirely as (A1)-(A4) following ? filtration. ? Received in formalin dawit d Milana Ruiz and cervical lesion is ? approximately 1cc of blood-t inged mucus admixed with fragments of monsivais-pink ? tissue. ??The specimen is ruiz bmitted entirely as (B) following filtration. (J.D. ?? Tessitore)/mpl ? End of Report ? Specimen Performing Organization Address City/State/ZIP Code Phon e Number [facility] [address] [place] [address] SERVICES [facility] [address] [place] [address] documented in this encounter Visit Diagnoses Not on filedocumented in this encounter Care Teams Clay Maker Relationship Specialty Start Date End Date Unknown, Provider, MD PCP - General 04/29/10 documented as of this encounter
--- OUTSIDE RECORDS SUMMARY | 2022-09-15 01:23 | XMS_ITS | Encounter Summary ---
:1955 Author Organization [facility] Address [address] [place] [address] Care Team Providers Name Role Phone Unknown, Provider Primary Care Provider Encounter Details Date Type Department Care Team Description 01/16/2022 Lab Requisition [facility] Luh Vazquze, Encounter for other Pathology & MD general examination Laboratory Medicine [address] [place], [place] [address] [facility] [address] [place], [place] [id number] Social History Tobacco Use Types Packs/Day Years Used Date Never Assessed Sex Assigned at Date Recorded Not on file documented as of this encounter Plan of Treatment Not on filedocumented as of this encounter Procedures Procedure Name Priority Date/Time Associated Comments Diagnosis PAP TEST Today 01/13/2022 11:00 Encounter for other Resu lts for this EST general examination procedur e are in the results section. HUMAN PAPILLOMAVIRUS Today 01/13/2022 11:00 Encounter for ot her Results for this (HPV) DETECTION-HIGH EST general examination procedure are in RISK TYPES the results section. documented in this encounter Results HUMAN PAPILLOMAVIRUS (HPV) DETECTION-HIGH RISK TYPES (01/13/2022 11:00 EST) Human Papillomavirus NegativeComment: No Negative [facility] (HPV) Detection-High E6 or E7 mRNA is CENTER LABORATOR Y Types detected from HPV SERVICES types 16,18,31,33,35,39,45 ,51,52,56,58,59,66, and 68 by chairman & co founder mediated amplification. Specimen Pap Test - Cervix and/or Endocervix Performing Organization Address City/State/ZIP Code Phon e Number [facility] [address] [place] [address] SERVICES PAP TEST (01/13/2022 11:00 EST) Specimens A. Cervix and/or [facility] Endocervix , ThinPrep CENTER Imaging System with LABORATORY Manual Evaluation SERVICES Specimen Adequacy Satisfactory for [facility] Evaluation - CENTER transformation zone LABORATORY component present SERVICES General Negative for [facility] MEDICAL Categorization intraepithelial CENTER lesion or malignancy LABORATORY SERVICES Descriptive Reactive cellular [facility] Diagnosis changes associated CENTER with inflammation LABORATORY present (includes SERVICES repair). Attestation By the signature below, the attending physician certifies that they have personally conducted a gross and/or microscopic [facility] Electronically examination of the described specimens and rendered or confirmed the above diagnosis. CENTER signed by LABORATORY Lori Gorman MD on 02/01/20 22 at 0754 Clinical History See below [facility] SERVICES HPV The result for the Human Pap illomavirus (HPV) Detection-High Risk Types is Negative. No E6 or E7 mRNA is detected from HPV types 16,18,31,33,35,39,45,51,52,56,58,59,66, and 68 by chairman & co founder mediated [facility] amplification.Testing was pe rformed on specimen [id number] and was resulted on 01/31/2022 0749 EST by LEANN, LAB INSTRUMENT RESULTS IN [facility] SERVICES Performing Lab [facility] LAB [facility] SERVICES Scanned Images [facility] SERVICES Specimen Pap Test - Cervix and/or Endocervix Performing Organization Address City/State/ZIP Code Phon e Number [facility] [address] [place] [address] SERVICES documented in this encounter Visit Diagnoses Diagnosis Encounter for other general examination documented in this encounter Care Teams Dietitian Consultant Relationship Specialty Start Date End Date Unknown, Provider, PCP - General 04/29/10 documented as of this encounter
--- OUTSIDE RECORDS SUMMARY | 2022-09-15 01:23 | XMS_ITS | Encounter Summary ---
:1955 Author Organization [facility] Address [address] [place] [address] Care Team Providers Name Role Phone Unknown, Provider Primary Care Provider Encounter Details Date Type Department Care Team Description 07/26/2012 Results Only [facility] Joey Sidhu MD Laboratory Services - [address] [phone] [facility] [place] [address] [phone] Social History Tobacco Use Types Packs/Day Years Used Date Never Assessed Sex Assigned at Date Recorded Not on file documented as of this encounter Plan of Treatment Not on filedocumented as of this encounter Procedures Procedure Name Priority Date/Time Associated Diagnosis Comme [facility] SURGICAL PATHOLOGY Routine 07/26/2012 0:00 EDT Re sults for this procedure are i n the results section. documented in this encounter Results SURGICAL PATHOLOGY (07/26/2012 0:00 EDT) Pathology Report: SURGICAL PATHOLOGY REPORT NATHANIEL LOPEZ Reports generated via electronic interface contain faustino ginal data; LAB however they are lacking the format of the original re port. Caution should be taken when reading/interpreting unfo rmatted reports. Name: ? BRANDI RUIZ ? Accession #: ? [id number] ? : ? 1955 (Age: 57) ??F ? Collect Date: ? 07/26/2012 ? Location: ? [facility] ? Receive Date: ? 07/27/20 12 ? Provider: LUTHER SIDHU MD Copy to: OLAF DE SANTIAGO MD ? Final Pathologic Diagnosis: ? Skin of bridge of nose, left side, shave biopsy : - Seborrheic keratosis. ?? Microscopic Description: ? The stratum corneum i s thickened by laminated orthohyperkeratosis. ??The epidermis is hyperplastic wi th papillomatosis and acanthosis. ??The keratinocytes have a basaloid appearance with round regular nuclei. ??(Dr. Peterson)/[facility] Document reviewed and electronically signed by: DOT PETERSON MD Report ??Date: 07/31/2012 16:13 By the signature above, the attending physician certif ies that he/she has personally conducted a gross and/or microscopic examin ation of the described specimens and rendered or confirmed the above diagnosi s. Specimen(s) Received: ? L side bridge of nose Clinical History: ? Present 2+/- months Gross Description: ? Received in formalin labelled Brandi Ruiz and L side bridge nose is a 0.6 x 0.1 cm elliptical shav e biopsy of monsivais-white skin. ??There is a central 0.4 x 0.3 x 0.2 cm ovoid, murillo-white, granul ar papule. ??The specimen is submitted intact in a single cassette. ??(Jesus Sosa)/jhoan End of Report Specimen Performing Organization Address City/State/ZIP Code Phon e Number [facility] [address] [place] [address] SERVICES [facility] [address] [place] [address] documented in this encounter Visit Diagnoses Not on filedocumented in this encounter Care Teams Sales Service Executive Relationship Specialty Start Date End Date Unknown, Provider, PCP - General 04/29/10 documented as of this encounter
--- OUTSIDE RECORDS SUMMARY | 2022-09-15 01:23 | XMS_ITS | Encounter Summary ---
:1955 Author Organization [facility] Address [address] [place] [address] Care Team Providers Name Role Phone Unknown, Provider Primary Care Provider Encounter Details Date Type Department Care Team Description 04/21/2020 Lab Requisition [facility] Outr Resulting Lab, Pathology & Laboratory Provider [facility] [address] [place] [address] Social History Tobacco Use Types Packs/Day Years Used Date Never Assessed Sex Assigned at Date Recorded Not on file documented as of this encounter Plan of Treatment Not on filedocumented as of this encounter Procedures Procedure Name Priority Date/Time Associated Comments Diagnosis DO NOT ORDER Today 04/21/2020 12:13 Results for this STANDALONE - BROAD EDT procedure are in COVID TEST the results section. COVID-19 TESTING Routine 04/21/2020 12:13 Results for this EDT procedure are i n the results section. documented in this encounter Results DO NOT ORDER STANDALONE - BROAD COVID TEST (04/21/2020 12:13 EDT) COVID-19 rt-PCR NEGATIVE Negative [facility] Result Comment: LABORATORY 2019-novel Coronavirus (2019 -nCoV) not detected by the qRT-PCR assay. Consider testing for other respiratory viruses or re-collecting for 2019-nCoV testing. Note: Optimum timing for peak viral levels du ring infections caused by 20 -nCoV have not been determined. Collection of multiple specimens from the same patient may be necessary to detect the virus. Limitations Positive results are indicat haley of active infection with SARS-CoV-2 but do not rule out bacterial infection or co-infection with other viruses. The agent detected may not be the definite cause of diseas e. In addition, detection of viral RNA may not indicate the presence of infectious virus or that SARS-CoV-2 is the causative agent for clinical symptoms. Negative results do not prec lude SARS-CoV-2 infection and should not be used as the sole basis for patient management decisions. Negative results must be combined with clinical observations, patient his tory, and epidemiological in formation. False negative results may also occur if amplification inhibitors are present in the specimen or if inadequate numbers of organisms are present in the specimen. Op timum specimen types and lamine ing for peak viral levels during infections caused by SARS-CoV-2 have not been fully determined. Collection of multiple specimens (types and time points) from the same patient may be necessary to detect the virus. The test was validated for u se with upper respiratory specimens obtained via nasopharyngeal or oropharyngeal swabs in VTM, UTM, M4, M5, M6, saline, and MTM media. The performance of this test has not be en established for other spe cimens. Specimens collected using other FDA recommended Specimen Collection Materials listed in the FDA COVID-19 [employer] communication (February 19, 2020) are pr ocessed with the caveat that they were not all validated for use with this test and the result must be interpreted in this context. Furthermore, a false negative results may occur if a specimen is improperly collected, transported or handled. If the virus mutates in the RT-PCR target region, SARS-CoV-2 may not be detected or may be detected less predictably. Inhibitors or other types of interference may produce a false negative result. An interference study evaluating the effect of common cold medications was not performed. This test is not FDA-cleared but its performance characteristics were established by our CLIA-certified, CAP-accredited, high complexity laboratory in accordance with CLIA regulations, [employer] of [employer] (CAP) guidel selam (Feb 12, 2020), and FDA guidance (Jan 24, 2020). This test is only for use un sybil the Food and Drug Administration's Emergency Use Authorization. Specimen Swab - Entire nasopharynx (body structur e) Performing Organization Address City/State/ZIP Code Phon e Number [facility] [place], [place] COVID-19 TESTING (04/21/2020 12:13 EDT) COVID-19 rt-PCR NEGATIVE Negative [facility] Result Comment: LABORATORY 2019-novel Coronavirus (2019 -nCoV) not detected by the qRT-PCR assay. Consider testing for other respiratory viruses or re-collecting for 2019-nCoV testing. Note: Optimum timing for peak viral levels du ring infections caused by 20 -nCoV have not been determined. Collection of multiple specimens from the same patient may be necessary to detect the virus. Limitations Positive results are indicat haley of active infection with SARS-CoV-2 but do not rule out bacterial infection or co-infection with other viruses. The agent detected may not be the definite cause of diseas e. In addition, detection of viral RNA may not indicate the presence of infectious virus or that SARS-CoV-2 is the causative agent for clinical symptoms. Negative results do not prec lude SARS-CoV-2 infection and should not be used as the sole basis for patient management decisions. Negative results must be combined with clinical observations, patient his tory, and epidemiological in formation. False negative results may also occur if amplification inhibitors are present in the specimen or if inadequate numbers of organisms are present in the specimen. Op timum specimen types and lamine ing for peak viral levels during infections caused by SARS-CoV-2 have not been fully determined. Collection of multiple specimens (types and time points) from the same patient may be necessary to detect the virus. The test was validated for u with upper respiratory specimens obtained via nasopharyngeal or oropharyngeal swabs in VTM, UTM, M4, M5, M6, saline, and MTM media. The performance of this test has not be en established for other spe cimens. Specimens collected using other FDA recommended Specimen Collection Materials listed in the FDA COVID-19 [employer] communication (February 19, 2020) are pr ocessed with the caveat that they were not all validated for use with this test and the result must be interpreted in this context. Furthermore, a false negative results may occur if a specimen is improperly collected, transported or handled. If the virus mutates in the RT-PCR target region, SARS-CoV-2 may not be detected or may be detected less predictably. Inhibitors or other types of interference may produce a false negative result. An interference study evaluating the effect of common cold medications was not performed. This test is not FDA-cleared but its performance characteristics were established by our CLIA-certified, CAP-accredited, high complexity laboratory in accordance with CLIA regulations, College of [employer] an Pathologists (CAP) guidel selam (Feb 12, 2020), and FDA guidance (Jan 24, 2020). This test is only for use un sybil the Food and Drug Administration's Emergency Use Authorization. Performing Lab [facility] LABORATORY SERVICES Specimen Swab - Entire nasopharynx (body structur e) Performing Organization Address City/State/ZIP Code Phon e Number [facility] [address] [place] [address] SERVICES [facility] [place], [place] documented in this encounter Visit Diagnoses Not on filedocumented in this encounter Care Teams Process Control Board Operator Relationship Specialty Start Date End Date Unknown, Provider, PCP - General 04/29/10 documented as of this encounter
--- OUTSIDE RECORDS SUMMARY | 2022-09-15 01:23 | XMS_ITS | Encounter Summary ---
:1955 Author Organization [facility] Address [address] [place] [address] Care Team Providers Name Role Phone Unknown, Provider Primary Care Provider Encounter Details Date Type Department Care Team Description 04/25/[address] [facility] Alexei Sidhu , Laboratory Services - [address] [place] [address] [place], [place] [address] [phone] Social History Tobacco Use Types Packs/Day Years Used Date Never Assessed Sex Assigned at Date Recorded Not on file documented as of this encounter Plan of Treatment Not on filedocumented as of this encounter Procedures Procedure Name Priority Date/Time Associated Diagnosis Comme [facility] SURGICAL PATHOLOGY Routine 04/25/2013 10:24 Resul ts for this EDT procedure are i n the results section. documented in this encounter Results SURGICAL PATHOLOGY (04/25/2013 10:24 EDT) Pathology Report: SURGICAL PATHOLOGY REPORT NATHANIEL LOPEZ Reports generated via electronic interface contain faustino ginal data; LAB however they are lacking the format of the original re port. Caution should be taken when reading/interpreting unfo rmatted reports. Name: ? BRANDI RUIZ ? Accession #: ? [id number] ? : ? 1955 (Age: 57) ??F ? Collect Date: ? 04/25/2013 ? Location: ? [facility] ? Receive Date: ? 013 ? Provider: ALEXEI SIDHU DO Copy to: OLAF DE SANTIAGO MD ? Final Pathologic Diagnosis: A. ?Skin of arm, left, excision: 1. ?Basal cell carcinoma, superficial and nodular type. ??See comment. ? - Margins negative, but close, for bas al cell carcinoma. ?- Basal cell carcinoma present approximately 0.5 mm from superior margin. ? B. ?? Skin of cheek, left, punch biopsy: ?1. ?? Minute biopsy of skin with features suggestive of solar lentigo. Comment: ? The excision from left arm consists of basal cell carcinoma with superficial and nodular grow th patterns. ??Although the basal cell carcinoma is not transected at the inked peripheral margins, superficial basal cell carcinoma is focally within 1.0 mm of the superior margin. ?? The punch biopsy specimen is small and primarily shows features of chronic solar damage. ??In some of the sec tions, there is basal epidermal melanin pigment that may represent solar lentigo. ??No carcinoma is evident on either the original or additional deeper sections. ??Correlation with the cli nical history is recommended. ?? There is a discrepancy as to the site of the biopsy fr om the cheek. ??The requisition states the site as Rt cheek, while [facility] punch bx left cheek. ??The site is confirme d by Cathy at Dr. Castillo's office as LEFT cheek. ??(Dr. Mayorga)/jhoan Microscopic Description: (A) ?Emanating from the epidermis and extending into the papillary dermis are buds of atypical basal cells. ??The basal cells have scant cytoplasm and round dark nuclei. ??Naresh otic figures and apoptotic bodies are evident. ??The nuclei at the periphery of the buds have a palisaded a rrangement. The superficial dermis is loose and, in some areas, there is retraction of the atypical cells from the stroma. ?? (B) ?Sections c onsist of a minute and partially crushed punch biopsy of skin. ??The epidermis is of relatively normal thicknes s. ??Some of the basal keratinocytes have mild nucl ear enlargement and hyperchromasia. ??In general, the upper levels of the epidermis mature in an medical policy specialist fas hion. ??On some of the sections, melanin pigment is increased along the basal zone with accentuation at the tips of some of the rete ridges. ??M elanocytes appear normal in number and morphology. ??The underlying dermis has solar elastosi s and sparse lymphomononuclear inflammati on. ??Deeper sections show similar features. ??(Dr. Peterson)/ljn ? Document reviewed and electronically signed by: DOT PETERSON MD Report ??Date: 04/30/2013 16:34 By the signature above, the attending physician certif ies that he/she has personally conducted a gross and/or microscopic examin ation of the described specimens and rendered or confirmed the above diagnosi s. Specimen(s) Received: A. ?Left arm lesion, suture is superior ( #1) B. ? Punch bx Rt cheek (#2) Clinical History: ? Left biceps, ? BCC left arm, lesion Rt cheek-fa ce Gross Description: ? Received in formalin labelled Brandi Ruiz and 1-lesion left arm is an oriented elliptical excision of wisdom-white smooth to wrinkled skin with a suture on one side designating superior as per the surg path requisition, but is arbitrarily redesignated as 12 o'clock. ??The sp ecimen measures 1.9 cm from 3 o'clock-9 o'clock, 1.3 cm fr om 12 o'clock-6 o'clock and is excised to a depth of 0.4 cm. ??There is an eccent sravani 0.6 x 0.1 cm irregular wisdom-macule. ??The surgical margin of the 12 o'clock side is inked blue and the ruiz rgical margin of the 6 o'clock side is inked black. ??The speci men is serially sectioned and entirely submitted as follows: BLOCK BOTELLO A1 ?9 o'clock tip, reverse en face A2, A3 ?Central sections A4 ?3 o'clock tip, reverse en face Received in formalin Brandi Roberts and 2-punch bx left cheek is an ovoid punch biopsy of monsivais-white skin measuring 0.2 x 0 .1 cm and 0.1 cm in thickness. ??The specimen is submitted intact as (B1). ??(Jesus Clemons)/[facility] End of Report Specimen Performing Organization Address City/State/ZIP Code Phon e Number [facility] [address] [phone] SERVICES [facility] [address] [place] [address] documented in this encounter Visit Diagnoses Not on filedocumented in this encounter Care Teams Assembler Handbags Relationship Specialty Start Date End Date Unknown, Provider, PCP - General 04/29/10 documented as of this encounter
--- OUTSIDE RECORDS SUMMARY | 2022-09-15 01:23 | XMS_ITS | Encounter Summary ---
:1955 Author Organization [facility] Address [address] [place] [address] Care Team Providers Name Role Phone Unknown, Provider Primary Care Provider Encounter Details Date Type Department Care Team Description 10/28/2010 Results Only [facility] Alexei Miller , Laboratory Services - [address] [place] [address] [place], [place] [address] [phone] Social History Tobacco Use Types Packs/Day Years Used Date Never Assessed Sex Assigned at Date Recorded Not on file documented as of this encounter Plan of Treatment Not on filedocumented as of this encounter Procedures Procedure Name Priority Date/Time Associated Diagnosis Comme nts SURGICAL PATHOLOGY Routine 10/28/2010 0:00 EST Re sults for this procedure are i n the results section. documented in this encounter Results SURGICAL PATHOLOGY (10/28/2010 0:00 EST) Pathology Report: SURGICAL PATHOLOGY REPORT ? NATHANIEL CARRANZA Reports generated via [employer] interface contain original data; ? LAB however they are lacking the format of the original report. ? Caution should be taken when reading/interpreting unformatted reports. ? Name: ? MARLENY, BRANDI D ? Accession #: ? [id number] ? : ? 1955 (Age: 55) ??F ? Collec t Date: ? 10/28/2010 ? Location: ? [facility] ? R eceive Date: ? 10/29/2010 ? Provider: ALEXEI KEARNEY SON DO ? Copy to: OLAF BERRIAN MD ? Final Pathologic Diagnosis: ? Skin of congregation, right , excision: ? - Seborrheic keratosis. ? Document reviewed and electr onically signed by: ? MICHELLE A URBINA MD ? Report ??Date: 11/01/2010 15 :58 ? By the signature above, the attending physician certifies that he/she has ? personally conducted a gross and/or microscopic examination of the described ? specimens and rendered or co nfirmed the above diagnosis. ? Specimen(s) Received: ? Skin lesion right tem ple ? Clinical History: ? Skin lesion right tem ple, increasing in size ? Gross Description: ? Received in formalin labelled Brandi Ruiz and skin lesion R congregation is an unoriented ovoid excision of monsivais skin measuring 0.9 x 0.4 cm and is excised ?? to a depth of 0.2 cm. There is a central monsivais-wisdom nodule measuring 0.8 x 0.4 x ?? 0.1 cm. ??The margins are in ked black. ??The specimen is serially sectioned and ?? entirely submitted as (A1) ? ?central sections and (A2) ??tips, reverse en face. ?? (Jesus Saez)/mms ? End of Report ? Specimen Performing Organization Address City/State/[facility] Code Phon e Number [facility] [address] [place] [address] SERVICES [facility] [address] [place] [address] documented in this encounter Visit Diagnoses Not on filedocumented in this encounter Care Teams Flight Line Mechanic Relationship Specialty Start Date End Date Unknown, Provider, PCP - General 04/29/10 documented as of this encounter
--- OUTSIDE RECORDS SUMMARY | 2022-09-15 01:23 | XMS_ITS | Encounter Summary ---
:1955 Author Organization [facility] Address [address] [place] [address] Care Team Providers Name Role Phone Unknown, Provider Primary Care Provider Encounter Details Date Type Department Care Team Description 12/09/2010 Results Only [facility] Ghada Michelle MD Laboratory Services - [address] [address] [address] [facility] [place] [address] [phone] Social History Tobacco Use Types Packs/Day Years Used Date Never Assessed Sex Assigned at Date Recorded Not on file documented as of this encounter Plan of Treatment Not on filedocumented as of this encounter Procedures Procedure Name Priority Date/Time Associated Diagnosis Comme nts CYTOPATHOLOGY Routine 12/09/2010 0:00 EST Results for this procedure are i n the results section . documented in this encounter Results CYTOPATHOLOGY (12/09/2010 0:00 EST) Pathology Report: CYTOPATHOLOGY REPORT ? [facility] ? LAB Reports generated via [employer] interface contain original data; ? however they are lacking the format of the original report. ? Caution should be taken when reading/interpreting unformatted reports. ? Name: ? BRANDI RUIZ D ? Accession #: ? [id number] ? : ? 1955 (Age: 55) ??F ?Collect Date: ? 12/09/2010 ? Location: ? [facility] ? R eceive Date: ? 12/12/2010 ? Provider: OLAF MICHELLE MD ? Copy to: ? Final Report ? SPECIMEN ADEQUACY ? Satisfactory for Eval uation ? - transformation zone compon ent present ? GENERAL CATEGORIZATION ? Negative for Intraepi thelial Lesion or Malignancy ? Last Menstural Period: 12/13 /2010 ? Other: Additional clinical i nformation: 1988 Abn pap, neg biopsy, repeat pap ? Specimen/Source: ??Pap Test, Cervix/Endocervix, ThinPrep Imaging System with ? manual evaluation ? Document reviewed and electr onically signed by: ? Jaqueline [place], [place]( CP) ? Report ??Date: 01/18/ 2011 07:20 ? HPV with Pap Test ? Date Ordered: ? 0 12/13/2010 ? Status: ?? Signed Out ?Date Complete: ? 12/15/2010 ? By: ??System Interface ? Date Reported: ? 12/15/2010 ? Interpretation ? RESULT: Negative for HPV typ es 16, 18, 31, 33, 35, 39, 45, 51, 52, ? 56, 58, 59, and 68. ? Comments ? Document reviewed and electr onically signed by: ? System Interface ? Report date: /20/20 11 ? By the signature above, the attending physician certifies that he/she has ? personally conducted a gross and/or microscopic examination of the described ? specimens and rendered or co nfirmed the above diagnosis. ? End of Report ? Specimen Performing Organization Address City/State/ZIP Code Phon e Number [facility] [address] [place] [address] SERVICES [facility] [address] [place] [address] documented in this encounter Visit Diagnoses Not on filedocumented in this encounter Care Teams Floor Scrubber Relationship Specialty Start Date End Date Unknown, Provider, PCP - General 04/29/10 documented as of this encounter
--- OUTSIDE RECORDS SUMMARY | 2022-09-15 01:23 | XMS_ITS | Clinical Summary ---
:1955 Author Organization [facility] Address [address] [place] [address] Care Team Providers Name Role Phone Unknown, Provider Primary Care Provider Social History Tobacco Use Types Packs/Day Years Used Date Never Assessed Sex Assigned at Date Recorded Not on file Plan of Treatment Health Maintenance Due Date Last Done Comments Hepatitis C Screen 1955 COVID-19 Vaccine (#1) 1961 Fall Risk Screening 2021 Care Teams Locomotive Operator Relationship Specialty Start Date End Date Unknown, Provider, PCP - General 04/29/10
--- OUTSIDE RECORDS SUMMARY | 2022-09-15 01:23 | XMS_ITS | Clinical Summary ---
:1955 Author Organization [facility] [place] [address] Care Team Providers Name Role Phone Samantha Michelle MD Primary Care Provider Allergies Active Allergy Reactions Severity Noted Date Comments Cefaclor Hives High 10/30/2011 Perflutren Lipid Other (See Comments) 01/24/2022 De finity caused Microspheres back pain and headache during stress test Penicillins Anaphylaxis High 10/30/2011 Promethazine Anaphylaxis High 10/30/2011 Preservative Anaphylaxis, Other High 10/30/2011 Sulfites (See Comments) Sulfite High 12/02/2012 Vancomycin Hives Medium 02/06/2013 Medications Medication Sig Dispensed Refills Start Date End Date Status escitalopram Take 20 mg by 0 Act haley (LEXAPRO) 20 mg mouth daily. tablet esomeprazole (NEXIUM) Take 40 mg by 0 Active 40 mg capsule mouth every morning (before breakfast). acetaminophen Take 2 tablets 60 tablet 3 03/03/2019 Active (TYLENOL) 500 mg by mouth every Tablet 6 hours as needed. levothyroxine daily. 4 02/18/2019 Activ e (SYNTHROID) 125 mcg Tablet metoprolol succinate daily. 0 03/27/2019 Active (TOPROL-XL) 25 mg Tablet Sustained Release 24 hr ALPRAZolam (XANAX) Take 0.25 mg 1 05/13/2019 Active 0.25 mg Tablet by mouth as needed. polyethylene glycol Take 17 g by 0 Active (MIRALAX) 17 gram mouth as Powder in Packet needed. triamcinolone Apply to 454 g 1 08/03/2021 Activ e (Kenalog) 0.1 % affected areas OintmentIndications: on arms twice Dermatomyositis daily for 10-14 days. Take 5-7 days off and repeat as needed gabapentin 200 mg. 0 07/12/2021 Active (Neurontin) 100 mg Capsule ondansetron (Zofran) as needed. 0 09/23/2021 Active 4 mg Tablet hydrocortisone 2.5 % Mix equal 30 g 3 01/25/2022 Active CreamIndications: amounts of Candidal intertrigo both creams and apply mixture topically to affected areas on the inguinal folds twice daily for 2 weeks as needed. ketoconazole Mix equal 30 g 3 01/25/2022 Active (Nizoral) 2 % amounts of CreamIndications: both creams Candidal intertrigo and apply mixture topically to affected areas on the inguinal folds twice daily for 2 weeks as needed. meloxicam (MOBIC) 15 Take 1 tablet 90 tablet 3 02/17/2022 Active mg Tablet by mouth daily. budesonide-formoteroL Inhale 2 puffs 1 each 12 04/12/2022 Active (Symbicort) 160-4.5 into the lungs mcg/actuation HFA 2 times daily. Aerosol Use with InhalerIndications: spacer. Moderate persistent asthma, unspecified whether complicated inhalational spacing Use as 1 each 2 04/12/2022 Active device (Huber Aerosol directed with Taney Enhancer) symbicort. SpacerIndications: Moderate persistent asthma, unspecified whether complicated clobetasoL (Temovate) prn 0 02/08/2022 Active 0.05 % Ointment levalbuteroL (XOPENEX Prn 0 03/27/2022 Active HFA) 45 mcg/actuation HFA Aerosol Inhaler SUMAtriptan (Imitrex) prn 0 03/24/2022 Active 25 mg Tablet montelukast Take 1 tablet 30 tablet 12 06/19/2022 Act haley (Singulair) 10 mg by mouth TabletIndications: nightly. Moderate persistent asthma, unspecified whether complicated metHOTREXate 2.5 mg Take 8 tablets 32 tablet 3 06/30/202101/24 Discontinued TabletIndications: (20 mg) by 2 Dermatomyositis mouth once a week. Take 4 tablets in the morning and 4 tablets in the evening, once weekly. 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 Mild intermittent asthma, uncomplicated 02/11/2020 History of bilateral knee replacement 11/10/2019 History of basal cell carcinoma 10/31/2016 Anemia 10/28/2012 Hypothyroidism 10/28/2012 Anxiety 10/28/2012 SVT (supraventricular tachycardia) Hypothyroid Encounters Date Type Specialty Care Team Description 09/14/2022 Orders Only Dermatology Ambreen Burroughs High risk m edication use MD Jos 08/11/2022 Telephone Ophthalmology Sahil Bernal MD 08/09/2022 Office Visit Ophthalmology Dolores, 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; MD Sahil Long-term us e of Plaquenil; Choroid neovasc ularization, bilateral 08/01/2022 TH Visit Dermatology Savi Herron MD Dermatomyos itis; (TeleHealth) High risk medic ation use 08/01/2022 TH Visit Dermatology Ambreen Burroughs Amyopathic (TeleHealth) MD Jos dermatomyositis 07/11/2022 Office Visit Cardiology Ayesha Jernigan, Atrial fib rillation, unspecified type; MD Encounter for s creening for lipid disorder 06/19/2022 Office Visit Pulmonology Laney Calhoun MD Moderate p ersistent asthma, unspecified whether complicated; Environmental a llergies 06/19/2022 Telephone Pulmonology Alexandro, Labs Only (IGE) Vivien Newby RN 06/16/2022 Telephone Pulmonology Anuradha Frankel RMA from Last 3 Months Family History Medical History Relation Comments Alcohol Use Disorder Father Depression Father Depression Mother Diabetes Sister Glaucoma Neg Hx Macular Degeneration Neg Hx Relation Status Comments Father Mother Sister Social History Tobacco Use Types Packs/Day Years Used Date Former Smoker Cigarettes 0.25 7 Quit: 02/07/19 76 Smokeless Tobacco: Never Used Alcohol Use Standard Drinks/Week Comments No 0 (1 standard drink = 0.6 oz pure alcoho l) Sex Assigned at Date Recorded Female 03/23/2021 8:16 AM EDT Last Filed Vital Signs Vital Sign Reading Time Taken Comments Blood Pressure 138/42 07/11/2022 9:45 AM EDT Pulse 72 07/11/2022 9:45 AM EDT Temperature 36.1 ??C (96.9 ??F) 06/19/2022 9:40 AM EDT Respiratory Rate 16 06/19/2022 9:40 AM EDT Oxygen Saturation 98% 07/11/2022 9:45 AM EDT Inhaled Oxygen Concentration - - Weight 150.1 kg (331 lb) 07/11/2022 9:45 AM EDT Height 175.3 cm (5' 9) 07/11/2022 9:45 AM EDT Body Mass Index 48.88 07/11/2022 9:45 AM EDT Plan of Treatment Upcoming Encounters Date Type Specialty Care Team Description 09/26/2022 Office Visit Dermatology Ambreen Burroughs MD [facility] [address] [place], [place] [address] (Wo rk) 10/02/2022 Office Visit Pulmonology Laney Calhoun M [facility] Pulmonary Medicguido [facility] [place], [place] [address] (Wo rk) 11/07/2022 Office Visit Ophthalmology Gifty Bernal MD [facility] [place], [place] [address] (Wo rk) Health Maintenance Due Date Last Done Comments Covid-19 Vaccine (#1) 1955 Pneumoccocal Vaccine: 65+ (1 - 1962 PCV) Lipid Screening 1974 Tdap adult 1975 Tetanus vaccine 1975 HPV test 1986 PAP Smear 1986 Breast Cancer Share Decision 1996 Needed Breast Cancer screening 2006 Zoster vaccine (1 of 2) 2006 Advance Directive 2011 Bone Density Scan 2021 Influenza (Flu) vaccine (1 of 1 - 07/27/2022 Influenza standard series) Diabetes Screening (HgbA1C or 06/07/2024 06/07/2021, 2020, Glucose) 09/28/2020, Additional history exists Colonoscopy 11/03/2026 11/03/2019, 11/03/2019, 04/09/2012, Additional history exists Hepatitis C Screening Completed 02/13/2019 Medical Devices Implanted Type Area Panel Machine Tender Device Shelf Model / Identifier Expiration Serial / Date Lot Bsx: [id number]: [id number]/07/2022 Implantable Chest M301 / Implanted: 02/07/2022 by Linda Tyler PA (Quant ity not on file) Loop Recorder [id number] / Procedures Procedure Name Priority Date/Time Associated Diagnosis Comme nts LAB SCAN 08/18/2022 12:00 Results for this AM EDT procedure are i n the results section. OCT RETINA - OU - Routine 08/09/2022 3:09 PM Exudative age-rel ated Results for this BOTH EYES EDT macular degeneration procedu re are in of both eyes with the result s active choroidal section. neovascularizati on Long-term use of Plaquenil Choroid neovascularization, bilateral LAB SCAN 06/21/2022 12:00 Results for this AM EDT procedure are i n the results section. from Last 3 Months Results SCAN DOC: LAB (08/18/2022 12:00 AM EDT)Only the most recent of2 resultswithin the time period is included. Narrative 08/18/2022 12:00 AM EDT This result has an attachment that is no t available. Ordered by an unspecified provider. Scanning Provider MEDIA MGR SCAN EXT ORDR/RSLT OCT Retina - OU - Both Eyes (08/09/2022 3:09 PM EDT) Anatomical Region Laterality Modality Other Specimen (Source) Anatomical Location Collection Method / Collectio n Time Received Time / Laterality Volume Narrative 08/09/2022 3:09 PM EDT Right Eye Quality was good. Scan locations include d subfoveal. Progression has been stable. Findings include subretinal scar ring, normal foveal contour, subretinal fluid. Left Eye Quality was good. Scan locations include d subfoveal. Progression has been stable. Findings include subretinal scar ring, normal foveal contour, subretinal fluid. Sahil Bernal MD [facility] from Last 3 Months Insurance Payer Benefit Plan / Subscriber ID Effective Dates Phone Addre ss Type Group [employer] HEALTH PLANS [id number] 2018-Tabatha [phone] [address] [employer] [address] [place] [address] Guarantor Name Account Type Relation to Date of Phone Bill ing Patient Address Brandi Ruiz Jame Personal/Family Self 1955 [address] (Home) [place] [phone] (Work) Care Teams Wholesale Account Manager Relationship Specialty Start Date End Date Samantha Michelle MD PCP - General 09/14/11 [address] [place], [place] [id number]
--- OUTSIDE RECORDS SUMMARY | 2022-09-15 01:23 | XMS_ITS | Encounter Summary ---
:1955 Author Organization [facility] Address [address] [place] [address] Care Team Providers Name Role Phone Unknown, Provider Primary Care Provider Encounter Details Date Type Department Care Team Description 06/04/2019 Hospital Encounter [facility] Unknown, Provider, [facility] [address] [place] [address] [place] [address] (Work) [phone] Social History Tobacco Use Types Packs/Day Years Used Date Never Assessed Sex Assigned at Date Recorded Not on file documented as of this encounter Discharge Disposition Disposition Code Departure Means Destination Home or Self Assisted documented in this encounter Plan of Treatment Not on filedocumented as of this encounter Visit Diagnoses Not on filedocumented in this encounter Care Teams Senior Care Specialist Relationship Specialty Start Date End Date Unknown, Provider, PCP - General 04/29/10 documented as of this encounter
--- OUTSIDE RECORDS SUMMARY | 2022-09-15 01:23 | XMS_ITS | Encounter Summary ---
:1955 Author Organization [facility] Address [address] [place] [address] Care Team Providers Name Role Phone Unknown, Provider Primary Care Provider Encounter Details Date Type Department Care Team Description 08/04/2021 Lab Requisition [facility] Outr Resulting Lab, Pathology & Laboratory Provider [facility] [address] [place] [address] Social History Tobacco Use Types Packs/Day Years Used Date Never Assessed Sex Assigned at Date Recorded Not on file documented as of this encounter Plan of Treatment Not on filedocumented as of this encounter Procedures Procedure Name Priority Date/Time Associated Diagnosis Comme nts PTH INTACT Routine 08/04/2021 12:25 EDT Results for this procedure are i n the results section . documented in this encounter Results PTH INTACT (08/04/2021 12:25 EDT) Pathologist Sig nature Intact PTH 62 19 - 88 pg/mL [facility] Specimen Blood - Venous blood (substance) Performing Organization Address City/State/ZIP Code Phon e Number [facility] [address] [place] [address] SERVICES documented in this encounter Visit Diagnoses Not on filedocumented in this encounter Care Teams Oracle Fusion Middleware Architect Relationship Specialty Start Date End Date Unknown, Provider, PCP - General 04/29/10 documented as of this encounter
--- OUTSIDE RECORDS SUMMARY | 2022-09-15 01:23 | XMS_ITS | Encounter Summary ---
:1955 Author Organization [facility] Address [address] [place] [address] Care Team Providers Name Role Phone Unknown, Provider Primary Care Provider Encounter Details Date Type Department Care Team Description 09/14/2021 Lab Requisition [facility] Outr Resulting Lab, Pathology & Laboratory Provider [facility] [address] [place] [address] Social History Tobacco Use Types Packs/Day Years Used Date Never Assessed Sex Assigned at Date Recorded Not on file documented as of this encounter Plan of Treatment Not on filedocumented as of this encounter Procedures Procedure Name Priority Date/Time Associated Diagnosis Comme nts COVID-19 TEST [facility] Today 09/13/2021 8:24 EDT LAB PCR COVID-19 TESTING Routine 09/13/2021 8:24 EDT Resu lts for this procedure are i n the results section. documented in this encounter Results COVID-19 TEST [facility] LAB PCR (09/13/2021 8:24 EDT) Specimen Swab - Entire nasopharynx (body structur e) Performing Organization Address City/State/ZIP Code Phon e Number [facility] [address] [place] [address] SERVICES COVID-19 TESTING (09/13/2021 8:24 EDT) COVID-19 rt-PCR Negative Negative [facility] Result Comment: [facility] This test has not been FDA c leared or approved. This test has been authorized by FDA under an EUA for use by authorized laboratories. This test has been authorized only for detection of nucleic acid fro SERVICES m 2018-nCo, not for any oth er viruses or pathogens. This test is only authorized for the duration of the declaration that circumstances exist justifying the authorization of emergency use of in vitro d iagnostic tests for detectio n and/or diagnosis of 2019-nCoV under section 564(b)(1) of Act, 21 U.S.C ?? 360bbb-3(b) (1), unless the authorization is terminated or revoked sooner. Negative results do not prec lude 2019-nCoV infection and should not be used as the sole basis for treatment or other patient management decisions. Negative results must be combined with clinical observa tions, patient history, and epidemiological informatio n. Performed on the PayPlug Fusion instrument Performing Lab [facility] Lab [facility] SERVICES Specimen Swab Performing Organization Address City/State/ZIP Code Phon e Number [facility] [address] [place] [id number] SERVICES documented in this encounter Visit Diagnoses Not on filedocumented in this encounter Care Teams Transmission Design Engineer Relationship Specialty Start Date End Date Unknown, Provider, PCP - General 04/29/10 documented as of this encounter
--- OUTSIDE RECORDS SUMMARY | 2022-09-15 01:23 | XMS_ITS | Encounter Summary ---
:1955 Author Organization [facility] [place] [address] Care Team Providers Name Role Phone Samantha Michelle MD Primary Care Provider Encounter Details Date Type Department Care Team Description 09/14/2022 [facility] High risk medication Road use [address] [place] [address] [address] [phone] [facility] [place], [place] [address] (Wo rk) Social History Tobacco Use Types Packs/Day Years Used Date Former Smoker Cigarettes 0.25 7 Quit: 02/07/19 76 Smokeless Tobacco: Never Used Alcohol Use Standard Drinks/Week Comments No 0 (1 standard drink = 0.6 oz pure alcoho l) Sex Assigned at Date Recorded Female 03/23/2021 8:16 AM EDT documented as of this encounter Progress Notes Arabella Peguero RN - 09/14/2022 4:05 PM EDT New orders for CBC, CMP faxed to [facility]. Patient notified via [employer] portal. documented in this encounter Plan of Treatment Upcoming Encounters Date Type Specialty Care Team Description 09/26/2022 Office Visit Dermatology Ambreen Burroughs MD [facility] [address], [place] [address] (Wo rk) 10/02/2022 Office Visit Pulmonology Laney Calhoun M [facility] Pulmonary Medicguido thornton [place], [place] [address] (Wo rk) 11/07/2022 Office Visit Ophthalmology Gifty Bernal MD [facility] [place], [place] [address] (Wo rk) Scheduled Orders Name Type Priority Associated Diagnoses Order S chedule CBC (with Diff) Lab Routine High risk medication Expe cted: 09/21/2022 use (Approximate), Expires: 2022 Comprehensive metabolic Lab Routine High risk medicat ion Expected: 09/21/2022 panel (non-fasting) use (Approxi mate), Expires: 2022 documented as of this encounter Visit Diagnoses Diagnosis High risk medication use Encounter for long-term (current) use of other medications documented in this encounter Care Teams Disulfurizer Tender Relationship Specialty Start Date End Date Samantha Michelle MD PCP - General 09/14/11 [address] [place] [address] documented as of this encounter
--- OUTSIDE RECORDS SUMMARY | 2022-09-15 01:24 | XMS_ITS | Encounter Summary ---
:1955 Author Organization [facility] [place] [address] Care Team Providers Name Role Phone Samantha Michelle MD Primary Care Provider Encounter Details Date Type Department Care Team Description 06/19/2022 Office [place] [facility] [place]y Calhoun MD Moderate persistent asthma, unspecified whether complicated; [facility] allergies [facility] [address] [place] Pulmonary [id number] Medicine [phone] [place], [place] [address] Social History Tobacco Use Types Packs/Day Years Used Date Former Smoker Cigarettes 0.25 7 Quit: 02/07/19 76 Smokeless Tobacco: Never Used Alcohol Use Standard Drinks/Week Comments No 0 (1 standard drink = 0.6 oz pure alcoho l) Sex Assigned at Date Recorded Female 03/23/2021 8:16 AM EDT documented as of this encounter Last Filed Vital Signs Vital Sign Reading Time Taken Comments Blood Pressure 134/52 06/19/2022 9:40 AM EDT Pulse 78 06/19/2022 9:40 AM EDT Temperature 36.1 ??C (96.9 ??F) 06/19/2022 9:40 AM EDT Respiratory Rate 16 06/19/2022 9:40 AM EDT Oxygen Saturation 97% 06/19/2022 9:40 AM EDT Inhaled Oxygen Concentration - - Weight 148.9 kg (328 lb 3.2 oz) 06/19/2022 9:40 AM EDT Height 175.9 cm (5' 9.25) 06/19/2022 9:40 AM EDT Body Mass Index 48.12 06/19/2022 9:40 AM EDT documented in this encounter Progress Notes Laney Calhoun MD - 06/19/2022 10:00 AM EDT Images from the original note were not included. [facility] Section of Pulmonary and Critical Care Medicine Outpatient Consultation Date of Encounter: 06/19/2022 Reason for Evaluation: Ms. Brandi Ruiz returns to the pulmonary clinic for follow-up of chronic cough. I independently interviewed the patient, have examined the patient if this visit was conducted in the office and have reviewed available records. Dear Samantha Michelle MD, As you know, Brandi Ruiz is a 67 y.o. female with history of chronic cough and suspected asthma, GERD, paroxysmal Afib, last seen in pulmonary clinic March 2022. Ms. Ruiz reports that she is feeling better. Dyspne is better, wheezing a lot less. Able to be more active. She notices if outdoors the pollen will still increase wheezing some; allergy meds help. Has chronic rhinitis still, and a little cough when lying down at night. She switched from claritin to jamie since claritin was not working well. She had acute covid19 infection recently, had severe symptoms with body aches, fevers, dyspnea; tookpaxlovid, helped some, and slow recovered to baseline. She thinks the symbicort is helping a lot! Used albuterol a little with acute illness, but not much recently. Denies hospitalizations or new medical concerns since her last visit. She did have covid19 vaccine primary and booster #1. Current Medications at Start of Encounter: Outpatient Medications Prior to Visit Medication Sig Dispense Refill ??? triamcinolone (Kenalog) 0.1 % Cream Apply topically 2 times daily for 30 days. Apply topically thin amount to affected areas on arms twice daily. 453.6 g 1 ??? mycophenolate (CELLCEPT) 500 mg Tablet Take 1 tablet by mouth 2 times daily for 30 days, THEN 2 tablets 2 times daily for 30 days. Check labs before starting 1000mg twice daily. 90 tablet 2 ??? clobetasoL (Temovate) 0.05 % Ointment prn ??? levalbuteroL (XOPENEX HFA) 45 mcg/actuation HFA Aerosol Inhaler Prn ??? SUMAtriptan (Imitrex) 25 mg Tablet prn ??? budesonide-formoteroL (Symbicort) 160-4.5 mcg/actuation HFA Aerosol Inhaler Inhale 2 puffs into the lungs 2 times daily. Use with spacer. 1 each 12 ??? inhalational spacing device (Huber Aerosol [place] Enhancer) Spacer Use as directed with symbicort. 1 each 2 ??? meloxicam (MOBIC) 15 mg Tablet Take 1 tablet by mouth daily. 90 tablet 3 ??? hydrocortisone 2.5 % Cream Mix equal amounts of both creams and apply mixture topically to affected areas on the inguinal folds twice daily for 2 weeks as needed. 30 g 3 ??? ketoconazole (Nizoral) 2 % Cream Mix equal amounts of both creams and apply mixture topically toaffected areas on the inguinal folds twice daily for 2 weeks as needed. 30 g 3 ??? gabapentin (Neurontin) 100 mg Capsule 200 mg. ??? ondansetron (Zofran) 4 mg Tablet as needed. ??? triamcinolone (Kenalog) 0.1 % Ointment Apply to affected areas on arms twice daily for 10-14 days. Take 5-7 days off and repeat as needed 454 g 1 ??? polyethylene glycol (MIRALAX) 17 gram Powder in Packet Take 17 g by mouth as needed. ??? ALPRAZolam (XANAX) 0.25 mg Tablet Take 0.25 mg by mouth as needed. 1 ??? levothyroxine (SYNTHROID) 125 mcg Tablet daily. 4 ??? metoprolol succinate (TOPROL-XL) 25 mg Tablet Sustained Release 24 hr daily. 0 ??? acetaminophen (TYLENOL) 500 mg Tablet Take 2 tablets by mouth every 6 hours as needed. 60 tablet3 ??? escitalopram (LEXAPRO) 20 mg tablet Take 20 mg by mouth daily. ??? esomeprazole (NEXIUM) 40 mg capsule Take 40 mg by mouth every morning (before breakfast). ??? estradioL (ESTRACE) 0.01 % (0.1 mg/gram) Cream No facility-administered medications prior to visit. Review of Systems: A focused ROS was completed and was positive as noted in HPI, and otherwise negative. Physical Examination: BP 134/52 Pulse 78 Temp 36.1 ??C (96.9 ??F) (Temporal) Resp 16 Ht 175.9 cm (5' 9.25) Wt (!) 148.9 kg (328 lb 3.2 oz) SpO2 97% BMI 48.12 kg/m?? GEN: NAD, alert, well appearing HEENT: MMM, clear OP, nares erythematous/edematous, neck supple, no adenopathy or tenderness CV: RRR, no murmur PULM: normal WOB, lungs clear to auscultation, no crackles or wheezing ABD: soft, ND MSK: easily ambulatory EXT: no edema NEURO: AAO, voice clear Pulmonary Function Test Results: Date FVC FEV1 Ratio TLC RV RV/TLC ERV DLCO 6MWT 03/07/2022 3.29 L (92% pred) 2.78 L (101% pred) 84 ? 99% pred ? I personally reviewed flow-volume loops and other tests. Results are most consistent with normal airflow, normal diffusing capacity. Labs, Microbiology and Imaging: I personally reviewed relevant laboratory, microbiologic and radiology results which were significant for: Labs 05/08/2022 OSH: WBC 9.4 Hgb 12.[address] chest 03/07/2022: clear parenchyma, no evidence of ILD, enlarged PA artery Immunization History: Flu vaccine: COVID-19 vaccine: has had primary and booster #1 Pneumovax: Prevnar-13: Impression and Recommendations: Brandi Ruiz is a 67 y.o. woman with resolved chronic cough and improved exertional dyspnea after initiation of ICS/LABA therapy, most consistent with mild to moderate persistent asthma, along with allergic rhinitis, Afib, GERD and obesity. Chest CT this spring did not demonstrate any evidence of chronic parenchymal lung disease. She describes allergic triggers for wheezing episodically while on ICS/LABA therapy, and has a moderately high eosinophil level of 340. Unfortunately IgE lab was not run when she did bloodwork in April. Given allergic profile currently suboptimally controlled by either claritin or jamie we discussed the option of trying singulair, which she would like to do. I did advise her of the risk for depression/anxiety with singulair, and she knows to stop the medication if shedevelops any mental health concerns. I am re-ordering an IgE level. We discussed multiple additional treatment options if asthma/allergies remain uncontrolled after addition of spiriva. She is working on increasing activity, which may also help her dyspnea. Summary Recommendations: - start singulair 10 mg po daily; prescribed; black box warning for anxiety/depression reviewed - continue symbicort 160-4.5 2 puffs BID - check IgE level now, ordered to be done at OSH Follow-up with in-office visit in 3 months Thank you for involving me in Ms. Ruiz's care. Please feel free to contact me with any further questions or concerns. I personally spent 25 minutes of this encounter with the patient discussing their pulmonary disease and treatment recommendations as outlined in my assessment and plan above. This visit involved a total of 35 minutes of clinical time on day of visit. Laney Calhoun MD [facility] PULMONOLOGY AT [facility] [address] Dept: [phone] Loc: [phone] documented in this encounter Plan of Treatment Upcoming Encounters Date Type Specialty Care Team Description 09/26/2022 Office Visit Dermatology Ambreen Burroughs MD [facility] DR SHAYY CASTILLO-DERMAT [place], [place] [address] ( naif) 10/02/2022 Office Visit Pulmonology Laney Calhoun M D [facility] Pulmonary Medici hillary [place], [place] [address] (Ashvin disla) 11/07/2022 Office Visit Ophthalmology Gifty Bernal MD [facility] [address] [place], [place] [address] (Ashvin disla) Scheduled Orders Name Type Priority Associated Diagnoses Order S chedule Immunoglobulin E (IgE) Lab Routine Moderate persisten t Expected: 06/19/2022, asthma, unspecified Expires: 12/19/2022 whether complicated documented as of this encounter Visit Diagnoses Diagnosis Moderate persistent asthma, unspecified whether complicated Environmental allergies Allergic rhinitis, cause unspecified documented in this encounter Care Teams Compensation Associate Relationship Specialty Start Date End Date Samantha Michelle MD PCP - General 09/14/11 [address] [place] [address] documented as of this encounter
--- OUTSIDE RECORDS SUMMARY | 2022-09-15 01:24 | XMS_ITS | Encounter Summary ---
:1955 Author Organization [facility] [place] [address] Care Team Providers Name Role Phone Samantha Michelle MD Primary Care Provider Encounter Details Date Type Department Care Team Description 07/11/2022 Office Visit Cardiology at [facility] [place] Ayesha Jernigan, Atrial fibrillation, unspeci fied type; [facility] Encounter for screening for lipid [place] [address] [place] [address] [phone] Social History Tobacco Use Types Packs/Day Years [...] Pulse 72 07/11/2022 9:45 AM EDT Temperature - - Respiratory Rate - - Oxygen Saturation 98% 07/11/2022 9:45 AM EDT Inhaled Oxygen Concentration - - Weight 150.1 kg (331 lb) 07/11/2022 9:45 AM EDT Height 175.3 cm (5' 9) 07/11/2022 9:45 AM EDT Body Mass Index 48.88 07/11/2022 9:45 AM EDT documented in this encounter Progress Notes Ayesha Jernigan MD - 07/11/2022 10:00 AM EDT CARDIOLOGY OUTPATIENT CLINIC NOTE PRIMARY CARE PROVIDER: Samantha Michelle MD REFERRING PROVIDER: Samantha Michelle Patient ID: Brandi Ruiz is a 67 y.o. female. HPI: 07/10/22 01/23/22 Last appointment Past history of SVT and possible afib, dermatomyositis She had a stress echocardiogram 01/23/22, she had held her metoprolol dose (last dose was night of Jan 21 25 mg Toprol). She was able to attain > 85% of predicted max HR. In recovery she had rapid narrow-complex tachycardia, this may be SVT but some sections show irregular heart rate and cannot fully r/o afib. She felt very short of breath, light-headed. She generally takes the low dose Toprol but still may have breakthrough episodes. She now has an implanted loop recorder and is being followed by the EP team. The study showed normal LV systolic function and no significant valve abnormalities Of note, she endorses less dyspnea on exertion--her nurse staff has put her on symbicort and this has helped. 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 About five years ago she was found to be in afib and given diltiazem and converted back to sinus. She has GINO and wears CPAP and has been on metoprolol. She will have episodes of afib (she can tell difference between SVT and afib) about one month ago, lasting 15 min. She took short acting metoprolol. She willalso have some chest pain/pressure during episodes. She does not know much of her parents history. Her brother has relatively new afib, by her report unable to get him in sinus. She will have supposed afib episode every six weeks or so, more frequent very fleeting episodes. She does not feel she had an SVT episode in the last few years. She has some wheezy stuff on occ for which she takes an inhaler. She odes not have chest symptoms with exertion. She has felt like she would faint during the afib episodes but had a very remote syncope while having the flu. She does no regular exercise. She lives her , daughter has returned home with grandson. Dogs ([place] Star, two del rod). She has another daughters. She had normal pregnancies. She had one ruptured ectopic. She is post menopause, she had excessive bleeding and got uterine ablation (age approx 56). She does not smoke, no alcohol. No stimulants. No caffeine. She does not follow any specific diet. She is losing weight. [place] 12/05/21 Duration of recording -12 days, 7 hours (December 05, 2021 until December 17, 2021) ??Predominant rhythm -sinus rhythm ??Minimum sinus rate: 54 bpm, sinus bradycardia at 5:39 AM on December 12, 2019 Maximum sinus rate: 116 bpm, sinus tachycardia at 5:20 PM on December 05, 2019 ??Average heart rate 74 bpm ??Atrial fibrillation not observed ??Ectopic beats ??Rare atrial premature beats (APC???s) Rare ventricular premature beats (VPC's); ventricular bigeminy (4.6 seconds) also observed ??2 brief episodes of supraventricular tachycardia, average heart rate 102 bpm Fastest: 4 beats, 2.5 seconds at 99 bpm-briefly as fast as 110 bpm Longest: 5 beats, 3.4 seconds at 106 bpm. These likely represent brief episodes of nonsustained atrial tachycardia ??Triggered and Patient Diary Events ??There were 4 triggered and 3 patient diary events: ??Triggered events: Sinus rhythm, 70 bpm up to 83 bpm, with occasional premature beats Diary events: Fluttering, racing, anxious, sinus rhythm, heart rates 80 bpm up to 84 bpm with premature atrial beats ??Conclusion(s): 1. Predominant rhythm: Sinus rhythm 2. No significant arrhythmias 3. Symptoms appear to correlate with sinus rhythm, possibly with awareness of premature contractions ?01/23/22 Stress Echocardiogram 1. IMPRESSION: The patient developed SVT during early recovery with a peak heart rate of 184 bpm (probable AF with RVR). There was spontaneous resolution of SVT after 1 minute of recovery. The patient's exercise capacity was below average for age and sex (5 METs). There was no echocardiographic or electrocardiographic evidence of ischemia. ?? 2. REST: Resting ECG showed normal sinus rhythm without ST abnormality. Resting echo showed normal global and segmental left ventricular function with an ejection fraction of 68% by Leger's biplane. The left atrium was severely dilated. Please see below for additional findings. ?? 3. STRESS: The patient exercised according to the Salbador protocol for 2:16 min, achieving a workload of 5 METs and a peak heart rate of 142 bpm (108% of MPHR). The peak heart rate in early recovery when the patient developed SVT was 184 bpm. Patient did not experience chest discomfort. Exercise was stopped due to dyspnea. There were no diagnostic ST changes during exercise or recovery. The left ventricular ejection fraction is hyperdynamic at peak exercise. There was normal augmentation of all left ventricular wall segments post exercise. Of note, patient was given IV echo contrast (Definity) and had an adverse reaction with back pain that self-resolved. 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 montelukast (Singulair) 10 mg Tablet Take 1 tablet by mouth nightly. 30 tablet 12 ??? triamcinolone (Kenalog) 0.1 % Cream Apply [...] 12 ??? inhalational spacing device (Huber Aerosol [place] Enhancer) Spacer Use as directed with symbicort. [...] weeks as needed. 30 g 3 ??? estradioL (ESTRACE) 0.01 % (0.1 mg/gram) Cream ??? gabapentin (Neurontin) 100 mg Capsule 200 [...] mg by mouth every morning (before breakfast). No current facility-administered medications for this visit. Subjective: Review of Systems Constitutional: Negative for malaise/fatigue and weight gain. Cardiovascular: Positive for chest pain, irregular heartbeat and palpitations. Negative for claudication, cyanosis, dyspnea on exertion, leg swelling, near- syncope, orthopnea, paroxysmal nocturnal dyspnea and syncope. Respiratory: Negative for shortness of breath and sleep disturbances due to breathing. Hematologic/Lymphatic: Does not bruise/bleed easily. Musculoskeletal: Negative for back pain, falls, joint pain and myalgias. Genitourinary: Negative for frequency. Neurological: Negative for dizziness, light-headedness and loss of balance. Psychiatric/Behavioral: Negative for altered mental status and memory loss. Social History: Social History Socioeconomic History ??? Marital status: Spouse name: Not on file ??? Number of children: Not on file ??? Years of education: Not on file ??? Highest education level: Not on file Occupational History ??? Not on file Tobacco Use ??? Smoking status: Former Smoker Packs/day: 0.25 Years: 7.00 Pack years: 1.75 Types: Cigarettes Quit date: 02/07/1975 Years since quittin.4 ??? Smokeless tobacco: Never Used Vaping Use ??? Vaping Use: Never used Substance and Sexual Activity ??? Alcohol use: No ??? Drug use: No ??? Sexual activity: Not on file Other Topics Concern ??? Exercise: Patient reported No ??? Abuse or Threat: Physical, Sexual, Verbal No Social History Narrative ??? Not on file Social Determinants of Health Financial Resource Strain: Not on file Food Insecurity: Not on file Transportation Needs: Not on file Physical Activity: Not on file Housing Stability: Not on file Objective: Physical Exam Constitutional: Appearance: She is well-developed. Neck: Vascular: No JVD. Cardiovascular: Rate and Rhythm: Normal rate and regular rhythm. Heart sounds: Normal heart sounds. Pulmonary: Effort: Pulmonary effort is normal. Breath sounds: Normal breath sounds. Skin: General: Skin is warm and dry. Neurological: Mental Status: She is alert and oriented to person, place, and time. Psychiatric: Behavior: Behavior normal. Patient Vitals for the past 24 hrs: Pulse BP SpO2 07/11/22 0945 72 138/42 98 % No results found for this or any previous visit (from the past 72 hour(s)). Assessment and Plan: No problem-specific Assessment & Plan notes found for this encounter. Lipids ?? No recent panel, she will be seeing her PCP Blood pressure ?? At goal on current regimen ?? Today in office it is higher than optimal but home readings are good. Dyspnea on exertion, improved ?? Unclear etiology, she has several risk factors for coronary artery disease ?? She had an negative stress echo 01/23/22 with normal resting LV function and valves unremarkable and no evidence of ischemia but was only able to complete 5 minutes of Salbador Protocol. Consider further testing to r/o ischemia ?? Her nurse staff started her on symbicort with improvement Palpitations, past SVT ?? Unclear if this is afib, SVT on ziopatch and strips from 01/23/22 stress echo ?? TSH has been normal, she is using CPAP, overall good blood pressure control ?? She has been seen by EP and now has an implanted loop recorder. EP will be following her. Lifestyle ?? She has a busy work and home schedule but I counseled on trying to fit in physical activity Overall Cardiac status ?? No indication for further cardiac testing at this time (ie. Stress kallie) ?? Her Left atrium is severely dilated; will repeat echo in the future to check mitral valve reguugitation Time spent for this clinic appointment on the date of service includes: 1) [id number] counseling as noted above 2) reviewing past medical records, cardiac testing, results of laboratory testing 3) coordinating care with other physicians and allied health care providers Ayesah Jernigan MD, Aure, FACC, FNLA Attending Senior Enterprise Architect Sports Cardiology Program Preventive Cardiology Lipid Clinic Advanced Hypertension Clinic documented in this encounter Plan of Treatment Upcoming Encounters Date Type Specialty Care Team Description 09/26/2022 Office Visit Dermatology Ambreen Burroughs MD [facility] [address]-DERMAT [place], [place] [address] ([facility]) 10/02/2022 Office Visit Pulmonology Laney Calhoun M D [facility] Pulmonary [place] [address] ( rk) 11/07/2022 Office Visit Ophthalmology Gifty Bernal MD [facility] [address] [place] [address] ( naif) documented as of this encounter Visit Diagnoses Diagnosis Atrial fibrillation, unspecified type Encounter for screening for lipid disord er documented in this encounter Care Teams Pecan Picker Relationship Specialty Start Date End Date Samantha Michelle MD PCP - General 09/14/11 [address] [place] [address] documented as of this encounter
--- OUTSIDE RECORDS SUMMARY | 2022-09-15 01:24 | XMS_ITS | Encounter Summary ---
:1955 Author Organization [facility] [place] [address] Care Team Providers Name Role Phone Samantha Michelle MD Primary Care Provider Reason for Visit Reason Comments Macular Degeneration Encounter Details Date Type Department Care Team Description 06/06/2022 Tech Visit Ophthalmology at [facility] Elise Bernal Exudative age-related [facility] MD Sahil macular degeneration of [facility] [place] [address] choroidal [phone] [place] [address] Social History Tobacco Use Types Packs/Day Years Used Date Former Smoker Cigarettes 0.25 7 Quit: 02/07/19 76 Smokeless Tobacco: Never Used Alcohol Use Standard Drinks/Week Comments No 0 (1 standard drink = 0.6 oz pure alcoho l) Sex Assigned at Date Recorded Female 03/23/2021 8:16 AM EDT documented as of this encounter Progress Notes Sahil Bernal MD - 06/06/2022 1:00 PM EDT The OCT of Brandi Ruiz did not reveal significant response to Avastin. Based on that the fluid ismost consistent with type 1 CNV that does not warrant treatment at this point. Fu: cancel the existing appointment and reschedule one in ~8-10wk for DFE OCT OU documented in this encounter Plan of Treatment Upcoming Encounters Date Type Specialty Care Team Description 09/26/2022 Office Visit Dermatology Ambreen Burroughs MD 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
--- OUTSIDE RECORDS SUMMARY | 2022-09-15 01:24 | XMS_ITS | Encounter Summary ---
:1955 Author Organization [place] [address] Care Team Providers Name Role Phone Samantha Michelle MD Primary Care Provider Encounter Details Date Type Department Care Team Description 03/21/2022 Office Visit Dermatology at [facility] Savi Herron MD High risk medication use; [address] Dermatomyositis; [address] RHEUMATOLOGY Shortness of [place] [address] [place], [place] [phone] [id number] Social History Tobacco Use Types Packs/Day Years Used Date Former Smoker Cigarettes 0.25 7 Quit: 02/07/19 75 Smokeless Tobacco: Never Used Alcohol Use Standard Drinks/Week Comments No 0 (1 standard drink = 0.6 oz pure alcoho l) Sex Assigned at Date Recorded Female 03/23/2021 8:16 AM EDT documented as of this encounter Progress Notes Savi Herron MD - 03/21/2022 4:30 PM EDT Brandi Ruiz is seen in the dermatology/rheumatology clinic for follow-up of dermatomyositis. She was last seen in May 2021. 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 She was diagnosed with amyopathic dermatomyositis.Her JANETH is positive at 1-160 with a myositis antibody panel with a weakly positive anti-LORI 1 antibody. Her's CK has been normal. Her rheumatoid factor is mildly elevated at 17 with an elevated CRP. Overall she has done well but without total resolution, on hydroxychloroquine though she has continued to have residual mild skin inflammation. Methotrexate, 15 mg, was added on March 29, 2021 nd the doseincreased to 20 mg in divided doses on June 07, 2021. These drugs have been stopped in 2021. She also has musculoskeletal pain that she identifies as muscle pain in the back and radiating into the glutes and down the legs right greater than left. This tends to limit her ability to sit or to walk. She is taking diclofenac plus Tylenol as well as doing stretches, using heat and warm baths. A change from diclofenac to meloxicam in December 2020 helped significantly with her joint pain. The patient's MRI from 09/01/2019 demonstrated a cystic structure in the right vastus lateralis muscles as well as a heterogeneous marrow signal in the distal femoral shaft. A PET CT scan from May 2012noted uptake in the uterus and a transvaginal ultrasound was recommended and ordered. The transvaginal ultrasound showed a fibroid uterus without findings suggestive of uterine cancer. A repeat MRI of the right vastus lateralis muscle showed an unchanged cyst. The patient's past medical history and major medical problems include: Obstructive sleep apnea on CPAP Endometrial ablation History of ectopic Paroxysmal atrial fibrillation with family history of tachycardia Asthma by history Hypothyroidism In Jul 2021, the patient was on methotrexate and hydroxychloroquine but still had significant skin inflammation. We wondered if hydroxychloroquine was having an adverse effect as described in approximately 33% of patients with dermatomyositis. Hydroxychloroquine was discontinued on August 02, 2021.Her calcium was 10.8 in May, and we did a repeat calcium and PTH both of which were normal (10 and 62). Brandi reported in Sep 2021 that her skin is no better off of hydroxychloroquine and her arms hurt. She identifies it as the muscles and tenderness to touch but it also hurts to use her arms left greater than right. Her gluteal muscles are tender as well but not like the arms. She also has pain in the MCP and PIP joints of the hands. She continues to take methotrexate 20 mg a week. She has not been onprednisone for her illness. Hydroxychloroquine was resumed. The patient reports no pulmonary symptoms except for allergic reactive airways disease for which sheuses an inhaler. She has no dysphagia. She does have some abdominal cramping that is new without changes in her bowel habits. The dermatology and rheumatology team discussed our thoughts with the patient at that Sep 30 2021 appointment. We would like to do a skin biopsy to see if the erythema noted on her arms is associated with active inflammation. We also discussed doing an MRI of the upper arms looking at both the shoulderjoints as well as the muscle. I corresponded with Karmen Keys MD regarding the appropriate orderingof the test. She noted a dedicated muscle protocol was not in place for the upper extremity but to order a MRI of the chest without contrast to go from the top of the shoulder through the elbows. We also recommended that the patient increase her methotrexate to 25 mg/week to take in divided doses. We considered the use of prednisone but decided to use that drug if her skin biopsy showed activity or her MRI noted muscle changes. The patient accepts this plan and will be seen again in 1 to 2 months tojudge the efficacy of our interventions. Skin Biopsy Sep 27, 2021 Left upper arm, skin punch biopsy: - Prominent basement membrane associated with ectatic superficial vessels (see ??discussion) DISCUSSION Sections show thickening of basement membrane, highlighted by PAS W D stain. There ??are associated ectatic superficial blood vessels. Significant inflammatory component ??or interface changes are not present. While dermatomyositis may share some of ??these findings, however, the present findings are not very specific or diagnostic. ??Clinical correlation is needed. The patient was last seen on 11/01/2021 taking 25 mg of methotrexate in divided dose and hydroxychloroquine 200 mg twice daily. Her skin biopsy did not demonstrate inflammation but more vascular ectasia. She notes no change in the appearance of her skin with the increase in methotrexate. However, back on hydroxychloroquine her arm muscles and shoulder are possibly slightly better. The dermatology/rheumatology team had a discussion with the patient. We agree that the methotrexate at higher doses may be the cause of her recurrent yeast infections and in view of the absence of inflammation on her skin biopsy and the lack of change in the appearance of her dermatitis with the increased dose, we will reduce her methotrexate back to 20 mg. The MRI of the upper extremity showed no muscle edema. There was a shoulder effusion, and a change in marrow signal that I discussed with Dr. Fltecher and felt to be a normal variant. She stopped the methotrexate in mid-November due to another skin yeast infection. Brandi reports that she has had a number of issues since we last saw her in October. She received Diflucan for vaginal yeast infection which improved but she now has a candidal skin infection in the groin. Some of the burning sensation in the vaginal area was felt to be due to hormone skin thinning rather than yeast infection and estradiol cream was instituted. Over the past several months she has had increasing dyspnea on exertion although this has been present since 2019. The patient has a history of atrial fibrillation and a Zio patch demonstrated no arrhythmias. She had a stress echo performed recently which showed severe left atrial enlargement but normal ventricular function. She stopped the test 4 minutes into it because of shortness of breath. When she stopped she developed a narrow complex tachycardia. She believes her O2 sat was 95% during the stress test. As a result of these cardiac findings, the patient stopped her hydroxychloroquine. The dermatology and rheumatology team discussed our thoughts with the patient at her 01/24/2022 appointment. We would get pulmonary function tests to include inspiratory and expiratory pressures as well as lung volumes. We would stop her meloxicam which can certainly cause salt and water retention. Dermatomyositis can affect the heart and may be more common than previously appreciated. And certainly hydroxychloroquine can be associated with arrhythmias as well as uncommonly with myocardial toxicity though usually after prolonged use. The patient has a family history of arrhythmias in her brother and cousin; her parents young as well. Therefore there may be a familial process going on. We elected not to add medications until we have a better understanding of her cardiac and possible pulmonary issues. The exception is to treat her intertrigo topically as noted in Dr. Burroughs's note from this date. It would be optimal to see her after these tests have been performed. In the interim, her PFTs were normal although the ambulatory saturations did reduce from 93 to 91% with exercise. However, IP and EP were not performed nor were long volumes. Spirometry was unchanged from prior exams. She also had an implanted loop recorder because of her tachycardia during the stresstest but she has had no episodes to record. CT of the chest done 03/07/2022 IMPRESSION ?? 1. No CT evidence of fibrotic lung disease or other interstitial lung disease. 2. Enlargement of the main pulmonary artery, which can be seen in pulmonary arterial hypertension. Correlation with echocardiography may be of benefit. The patient had an echocardiogram in 2016 because of atrial fibrillation which showed mild dilatation of the left atrium and right ventricular systolic pressure of 20-25. Her stress echo done on January 23, 2022 demonstrated severely dilated left atrium but no estimated right ventricular systolic pres sure was given. The patient reports that discontinuing both her hydroxychloroquine and her methotrexate has resultedin some increase in the redness of her rash on her arms but no quantum change in her strength or thefatigue she gets on using her muscles. She endorses significant global fatigue and continues to complain of being short of breath not just with activity but even with talking. She notes that back in January 2020 which was 2 years after developing her rash, she noted being short of breath with talking. She attributed this to wearing a mask. However she has always wondered if she contracted COVID-19. She also has had trouble swallowing and to eat slowly to avoid aspiration. Her barium swallow was normal. Upper GI endoscopy demonstrated multiple gastric polyps but no other abnormality. In the interim she has been diagnosed with bilateral macular degeneration and is concerned that she may need some more intraocular anti-VEGF injections. She was also treated for sinusitis with antibiotics. On physical exam, Brandi looks the same. She does seem to get short of breath with talking. Her skin is notable for erythema over both upper arms. She does have capillary abnormalities seen on the left second and third finger including dropout and enlargement. The dermatology and rheumatology team had a discussion with the patient. Her symptoms seem about thesame without hydroxychloroquine or methotrexate though the rash is more prominent. We are puzzled byher cardiopulmonary symptoms though her desaturation with activity could be due to pulmonary hypertension and this is supported by the enlargement of pulmonary artery seen on CAT scan. I am not certainwhy she has a severely dilated left atrium and if that has anything to do with her symptoms or with dermatomyositis. The incidence of cardiac involvement and dermatomyositis is probably higher than appreciated but is not always symptomatic. I will engage in a discussion with her rn anesthetist Dr. Hanley to chart a path forward. We thoroughly agree with a pulmonary consultation. We will also recheck her JANETH and myositis panel as her previous panel was positive for SEA 1 antibody at 32 units. Because of a question of prevaccination COVID-19 infection we will get antibodies for igiugig disease. We will plan to see the patient after these tests are performed. Addendum - her nucleocapsid antibodies were negative making long covid less likely as a cause of herbreathing issues. This note was created with [employer] voice recognition software. Although I try to proofread carefully,there may be errors in the bleach supervisor. If you have any questions or concerns, please contact me for verification and correction. Thank you. Ambreen Burroughs MD - 03/21/2022 4:30 PM EDT Duke Paz, Just a note to let you know your recent Covid antibody test was negative - looks like we can't attribute the shortness of breath to a previous Covid infection, but helpful, I think, to have adefinitive answer on that. Ambreen Ambreen Burroughs MD - 03/21/2022 4:30 PM EDT H Brandi, your myositis panel came back, essentially the same as before (weak positive anti LORI antibody), which goes along with dermatomyositis. No other antibodies have developed. Looking forward to seeing what pulmonology has to say next week. Reece, Ambreen Burroughs documented in this encounter Plan of Treatment Upcoming Encounters Date Type Specialty Care Team Description 09/26/2022 Office Visit Dermatology Ambreen Burroughs MD [facility] DR SHAYY CASTILLO-DERMAT [place], [place] [address] (Ashvin disla) 10/02/2022 Office Visit Pulmonology Laney Calhoun M [facility] Pulmonary Medicguido [facility]orn[place], [place] [address] (Ashvin disla) 11/07/2022 Office Visit Ophthalmology Gifty Bernal MD [facility] [place], [place] [address] (Wo rk) documented as of this encounter Procedures Procedure Name Priority Date/Time Associated Diagnosis Comme nts HC COVID-19 IGG Routine 03/21/2022 5:44 PM Dermatomyositis Res ults for this EDT procedure are i n the results section. [facility] MYOSITIS Routine 03/21/2022 5:44 PM Dermatomyositis Res ults for this ANTIBODY PANEL PLUS EDT procedur e are in the results section. [facility] ANATITRE Routine 03/21/2022 5:44 PM Dermatomyositis Res ults for this (ANDPATTERN) EDT procedure are i n the results section. documented in this encounter Results COVID-19 Nucleocapsid Antibody (03/21/2022 5:44 PM EDT) [facility] Method Time Signature SARS-CoV-2 Not Detected Not Detected [facility] LABORATORY Comment: This test only detects antibodies to the nucleocapsid protein made from natural infection, and will not detect antibodie s made against the spike protein due to vaccination. This is a qualitative total antibody ass ay. It does not distinguish between IgG and IgM antibodies to SARS-CoV-2. Results cannot be used to diagnose acute SARS-CoV-2 (Severe acute respiratory syndrome coronavirus 2, also known as 20 novel coronavirus or 2019-nCoV) infection. A ? Not Detected? result does not rule out SARS-CoV-2 infection, particularly in those who have been in contact with the virus. Follow-up testing with a molecular diagnostic test to SARS-CoV-2 should be considered for individuals with symptoms of active SARS-CoV-2 infec tion. A ? Detected? result cannot be interpreted as conclusive evidence of protective immunity to the SARS-CoV-2 virus. Detect ion may be due to past or present infection with mta-YIYO-LjY-2 coronaviru s strains, such as coronavirus HKU1, NL63, OC43, or 229E. This test was performed using the Elecs[employer] s Mchd-IVMK-KeP-2 total antibody test on the Lev Drew e801 analyzer. This s erology test is available following FDA Emergency Use Authorization, however it has not been reviewed by the FDA, nor is it FDA cleared or approved. The perfo rmance characteristics of this test were determined by the Department of [facility] at [facility]. The laboratory is certified under the Clinical Laboratory Improvement Amendmen ts of 1988 (CLIA), 42 U.S.C. section 263a, to perform high complexity tests. Results should not be used as the sole b asis to diagnose or exclude SARS-CoV-2 infection, to inform infection status, o r to screen donated blood. CDC COVID-19 criteria for testing on hum an specimens and clinical management guidance information are available at [facility] CDC Coronavirus Disease 2019 (COVID-19) webpage under Information fo r Healthcare Professionals (https://www.cdc.gov/coronavirus/2019-nc ov/hcp/index.html) Additional information about this and ot her EUA tests can be found in provider and patient fact sheets at the following FDA website: https://www.fda.gov/medical-devices/hskcdtxqmhf-empgskw-5888-fwwvz-18-fdputqcog- lpf-vcwyxxgwrmzqnv-avtnthi-devices/ugnmt-clflsxaviit-vevd Specimen Anatomical Collection Method Collection Time Receive d Time (Source) Location / / Volume Laterality Blood 03/21/2022 5:44 PM 6:05 EDT PM EDT Ambreen Burroughs MD CHEMISTRY ORDERABLES Performing Organization Address City/State/[place] [address] (ABNORMAL) Myositis Antibody Panel Plus (03/21/2022 5:44 PM EDT) Component Value Ref Test Analysis Performed At [facility] Range Method Time Signature Myositis Ab [place] Panel Test ? Result ? Flag ??Unit ?? RefValue [facility] MyoMarker 3 Plus Profile HOSPI MERI ??Anti-Yolie-1 Ab ? <20 ?Units ??<20 LABORATORY ??Anti-PL-7 Ab ? Negative ?Negative ?This test was developed and its performance characteri stics ?determined by [facility]. It has not been cleared or ?approved by the Food and Drug Administration. ??Anti-PL-12 Ab ?Negative ?Negative ?This test was developed and its performance characteri stics ?determined by [facility]. It has not been cleared or ?approved by the Food and Drug Administration. ??Anti-EJ Ab ? Negative ?Negative ?This test was developed and its performance characteri stics ?determined by [facility]. It has not been cleared or ?approved by the Food and Drug Administration. ??Anti-OJ Ab ? Negative ?Negative ?This test was developed and its performance characteri stics ?determined by [facility]. It has not been cleared or ?approved by the Food and Drug Administration. ??Anti-SRP Ab ?Negative ?Negative ?This test was developed and its performance characteri stics ?determined by [facility]. It has not been cleared or ?approved by the Food and Drug Administration. ??Euux-Kj-0-Ab ? Negative ?Negative ?This test was developed and its performance characteri stics ?determined by [facility]. It has not been cleared or ?approved by the Food and Drug Administration. ??Xneg-JXB-9khpre Ab ? <20 ?Units ??<20 ?This test was developed and its performance characteri stics ?determined by [facility]. It has not been cleared or ?approved by the Food and Drug Administration. ??Anti-MDA-5 Ab (CADM-140) ? <20 ?Units ??<20 ?This test was developed and its performance characteri stics ?determined by [facility]. It has not been cleared or ?approved by the Food and Drug Administration. ??Anti-NXP-2 (P140) Ab ? <20 ?Units ??<20 ?This test was developed and its performance characteri stics ?determined by [facility]. It has not been cleared or ?approved by the Food and Drug Administration. ??Anti-SAE1 Ab, IgG ?32 ?H ?Units ??<20 ?This test was developed and its performance characteri stics ?determined by [facility]. It has not been cleared or ?approved by the Food and Drug Administration. ??Anti-PM/Scl-100 Ab ? <20 ?Units ??<20 ?This test was developed and its performance characteri stics ?determined by [facility]. It has not been cleared or ?approved by the Food and Drug Administration. ??Anti-Ku Ab ? Negative ?Negative ?This test was developed and its performance characteri stics ?determined by [facility]. It has not been cleared or ?approved by the Food and Drug Administration. ??Anti-SS-A 52kD Ab, IgG ? <20 ?Units ??<20 ?This test was developed and its performance characteri stics ?determined by [facility]. It has not been cleared or ?approved by the Food and Drug Administration. ??Anti-U1 SALES TECHNICIAN HOME THEATER Ab ? <20 ?Units ??<20 ??Anti-U2 SALES TECHNICIAN HOME THEATER Ab ? Negative ?Negative ?This test was developed and its performance characteri stics ?determined by [facility]. It has not been cleared or ?approved by the Food and Drug Administration. ??Anti-U3 SALES TECHNICIAN HOME THEATER (Fibrillarin) ?Negative ?Negative ?This test was developed and its performance characteri stics ?determined by [facility]. It has not been cleared or ?approved by the Food and Drug Administration. ?Interpretation for Anti-Yolie-1, [id number]-7rejfk, ?Anti-MDA-5, Anti-NXP-2, Anti-SAE1, Anti-PM/Scl-1 00, ?Anti-SS-A 52 kD, Anti-U1 SALES TECHNICIAN HOME THEATER: ?Negative: ?<20 ?Weak Positive: ? 20 - 39 ?Moderate Positive: ? 40 - 80 ?Strong Positive: ? >80 ?. ?Test Performed by: ?[facility] ?[address] ?[place] [address] (A) Specimen Anatomical Collection Method Collection Time Receive d Time (Source) Location / / Volume Laterality Blood 03/21/2022 5:44 PM 2 8:46 EDT AM EDT Resulting Agency Comment Spec In Lab Ambreen Burroughs MD IMMUNOLOGY ORDERABLES Performing Organization Address City/State/ZIP [place] [address] JANETH (03/21/2022 5:44 PM EDT) Component Value Ref Test Analysis Performed At [facility] Range Method Time Signature Antinuclear Ab [place] Test ?Result ? Flag ??Unit ??RefValue [facility] Antinuclear Ab, HEp-2 ? <1:80 (Negative) ? <1:80 (Negative) HOSPITAL ??Substrate, S LABORATORY ? ADDITIONAL INFORMATION ------ ?Method: Immunofluorescence using HEp-2 cellular substr ate. ?Test Performed by: ?[facility] ?[address] [place] [address] ?Optical Effects Line Up Person: Christophe Seymour M.D. Ph.D.; CLIA# [id number] Specimen Anatomical Collection Method Collection Time Receive d Time (Source) Location / / Volume Laterality Blood 03/21/2022 5:44 PM 2 8:46 EDT AM EDT Resulting Agency Comment Spec In Lab Ambreen Burroughs MD IMMUNOLOGY ORDERABLES Performing Organization Address City/State/ZIP Code Phon e Number [place] [phone] documented in this encounter Visit Diagnoses Diagnosis High risk medication use Encounter for long-term (current) use of other medications Dermatomyositis Shortness of breath on exertion Shortness of breath documented in this encounter Care Teams Address Change Clerk Relationship Specialty Start Date End Date Samantha Michelle MD PCP - General 09/14/11 [address] [place] [address] documented as of this encounter
--- OUTSIDE RECORDS SUMMARY | 2022-09-15 01:24 | XMS_ITS | Encounter Summary ---
:1955 Author Organization [facility] [place] [address] Care Team Providers Name Role Phone Samantha Michelle MD Primary Care Provider Reason for Visit Reason Onset Date Comments Pre Procedure Call 02/03/2022 Encounter Details Date Type Department Care Team Description 02/03/2022 [place]phone [place] [facility] [place]acie Villegas [place] [address] Social History Tobacco Use Types Packs/Day Years Used Date Former Smoker Cigarettes 0.25 7 Quit: 02/07/19 76 Smokeless Tobacco: Never Used Alcohol Use Standard Drinks/Week Comments No 0 (1 standard drink = 0.6 oz pure alcoho l) Sex Assigned at Date Recorded Female 03/23/2021 8:16 AM EDT documented as of this encounter Miscellaneous Notes Telephone Encounter - Gracie Villegas RN - 02/03/2022 10:48 AM ESTSummary: Pre Procedure Call: ILR implant ILR IMPLANT PRE-PROCEDURE CHECKLIST Patient Name: Brandi Ruiz Patient Provider: Camilla Tyler Date Scheduled: 02/07/22 Arrival Time/ Case Time: 8:45 am / 9:00 am Location: [place] [facility] - Cardiology Clinic Indications: Palpitations Date Patient was Called: 02/03/22 Coming from an assisted living facility?: No Any allergies?: Note - MUST USE LIDOCAINE PLAIN WITHOUT EPI BECAUSE OF ANAPHYLAXIS TO SULFITES PRESENT IN LIDOCAINE W/ EPI Allergies Allergen Reactions ??? Ceclor [Cefaclor] Hives ??? Pcn [Penicillins] Anaphylaxis ??? Phenergan [Promethazine] Anaphylaxis ??? Preservative Anaphylaxis Sulfites ??? Sulfite ??? Vancomycin Hives ??? Definity [Perflutren Lipid Microspheres] Definity caused back pain and headache during stress test Any issues with claustrophobia in the past?: No Any rashes on your chest currently?: No Hx of DM?: No On chronic steroids?: No Cell service at home? (MDT Only - home monitor or shorty): Yes Patient Education Provided: 1) Informed that ILR is a diagnostic tool, does not provide therapy. This allows us to monitor for abnormal heart rhythms. It is the size of a paperclip & battery lasts for 3 years. After 3 years device can be left in with no issues, it can be removed, and/or another ILR can be implanted 2) It records the heart beat on a loop. We do not receive every heart beat - device is programmed torecord certain abnormal rhythms that meet the set parameters. The device connects to a home monitor and if there is an abnormal rhythm, we receive that information in our device clinic. We review the data and send it to the patient's doctor. 3) The entire appointment is about 1 hour long. Appt includes: - Physical exam, we explain the procedure, and obtain consent. - Pt lays on their back & then left pectoral region is cleansed & sterile procedure begins by numbing the area with local lidocaine. - A small (~1cm) incision is created & implant the ILR under the skin. - We then check the device to make sure it can see the heart beat and if it can, we close the incision. - The closure involves SteriStrips and dermabond, and finally a Mepilex dressing that stays on for 1week. ILRs are implanted for 2 common reasons 1) syncope of unclear etiology 2) cryptogenic stroke (i.e. unclear reason why pt had a stroke), specifically looking for afib Pt verbalized understanding of procedure & information. No further questions at this time. Encouraged to call with any further questions/concerns documented in this encounter Plan of Treatment Upcoming Encounters Date Type Specialty Care Team Description 09/26/2022 Office Visit Dermatology Ambreen Burroughs MD [facility] DR SHAYY CASTILLO-DERMAT [place], [place] [address] (Wo rk) 10/02/2022 Office Visit Pulmonology Laney Calhoun M D [facility] Pulmonary Medici hillary [place], [place] [address] (Wo rk) 11/07/2022 Office Visit Ophthalmology Gifty Bernal MD [facility] [place] [address] (Wo rk) documented as of this encounter Visit Diagnoses Not on filedocumented in this encounter Care Teams Nurse Companion Relationship Specialty Start Date End Date Samantha Michelle MD PCP - General 09/14/11 [address] [place] [address] documented as of this encounter
--- OUTSIDE RECORDS SUMMARY | 2022-09-15 01:24 | XMS_ITS | Encounter Summary ---
:1955 Author Organization [facility] [place] [address] Care Team Providers Name Role Phone Samantha Michelle MD Primary Care Provider Reason for Referral Consultation (Routine) - Closed Specialty Diagnoses / Procedures Referred By Contact Refer red To Contact Pulmonology Diagnoses ILD (interstitial lung disease) Ambreen Burroughs [place] [facility] [place] 5c [facility] [place] [address] [place] [address] Referral ID Status Reason Start Date Expiration Date Visits V isits Requested Authorized [id number] Closed Consult, 01/27/2022 01/27/2023 1 1 Test & Treat Encounter Details Date Type Department Care Team Description 01/27/2022 Orders Only Dermatology at [facility] Ambreen Burroughs Ad ult ramana Arguello MD dermatomyositis [address] [facility] [address] [facility] [phone] [facility] [place] [address] Social History Tobacco Use Types Packs/Day Years Used Date Former Smoker Cigarettes 0.25 7 Quit: 02/07/19 76 Smokeless Tobacco: Never Used Alcohol Use Standard Drinks/Week Comments No 0 (1 standard drink = 0.6 oz pure alcoho l) Sex Assigned at Date Recorded Female 03/23/2021 8:16 AM EDT documented as of this encounter Progress Notes Brittaney Canseco LPN - 01/27/2022 4:04 PM EST Referral for shortness of breath in the setting of dermatomyositis to pulmonary per Dr. Burroughs documented in this encounter Plan of Treatment Upcoming Encounters Date Type Specialty Care Team Description 09/26/2022 Office Visit Dermatology Ambreen Burroughs MD [facility] DR SHAYY CASTLILO-DERMAT [place], [place] [address] (Wo rk) 10/02/2022 Office Visit Pulmonology Laney Calhoun M D [facility] Pulmonary Medici hillary [place], [place] 0[address] (Wo rk) 11/07/2022 Office Visit Ophthalmology Gifty Bernal MD [facility] [place] [address] (Wo rk) Scheduled Referrals Name Type Priority Associated Diagnoses Order S chedule Referral to Outpatient Routine Adult onset Ordered: Pulmonology Referral dermatomyositis 01/27/2022 documented as of this encounter Visit Diagnoses Diagnosis Adult onset dermatomyositis documented in this encounter Care Teams Spike Driver Relationship Specialty Start Date End Date Samantha Michelle MD PCP - General 09/14/11 [address] [place] [address] documented as of this encounter
--- OUTSIDE RECORDS SUMMARY | 2022-09-15 01:24 | XMS_ITS | Encounter Summary ---
:1955 [place] [address] Care Team Providers Name Role Phone Samantha Michelle MD Primary Care Provider Encounter Details Date Type Department Care Team Description 03/07/2022 Hospital Encounter Pulmonology at [facility] ILD (interstitial lung [facility] disease) [place] [address] Social History Tobacco Use Types Packs/Day Years Used Date Former Smoker Cigarettes 0.25 7 Quit: 02/07/19 76 Smokeless Tobacco: Never Used Alcohol Use Standard Drinks/Week Comments No 0 (1 standard drink = 0.6 oz pure alcoho l) Sex Assigned at Date Recorded Female 03/23/2021 8:16 AM EDT documented as of this encounter Medications at Time of Discharge Medication Sig Dispensed Refills Start Date End Date clobetasoL (Temovate) 0.05 prn 0 2 % Ointment meloxicam (MOBIC) 15 mg Take 1 tablet by 90 tablet 3 2021 Tablet mouth daily. hydrocortisone 2.5 % Mix equal amounts 30 g 3 01/26/20 CreamIndications: Candidal of both creams and intertrigo apply mixture topically to affected areas on the inguinal folds twice daily for 2 weeks as needed. ketoconazole (Nizoral) 2 % Mix equal amounts 30 g 3 CreamIndications: Candidal of both creams and intertrigo apply mixture topically to affected areas on the inguinal folds twice daily for 2 weeks as needed. gabapentin (Neurontin) 100 200 mg. 0 1 mg Capsule ondansetron (Zofran) 4 mg as needed. 0 09/23/2021 Tablet triamcinolone (Kenalog) Apply to affected 454 g 1 08/03 0.1 % OintmentIndications: areas on arms twice Dermatomyositis daily for 10-14 days. Take 5-7 days off and repeat as needed polyethylene glycol Take 17 g by mouth 0 (MIRALAX) 17 gram Powder as needed. in Packet ALPRAZolam (XANAX) 0.25 mg Take 0.25 mg by 1 04/26 Tablet mouth as needed. levothyroxine (SYNTHROID) daily. 4 02/18/2019 125 mcg Tablet metoprolol succinate daily. 0 03/27/2019 (TOPROL-XL) 25 mg Tablet Sustained Release 24 hr acetaminophen (TYLENOL) Take 2 tablets by 60 tablet 3 03/03 500 mg Tablet mouth every 6 hours as needed. escitalopram (LEXAPRO) 20 Take 20 mg by mouth 0 mg tablet daily. esomeprazole (NEXIUM) 40 Take 40 mg by mouth 0 mg capsule every morning (before breakfast). estradioL (ESTRACE) 0.01 % 0 2 07/11/2022 (0.1 mg/gram) Cream documented as of this encounter Plan of Treatment Upcoming Encounters Date Type Specialty Care Team Description 09/26/2022 Office Visit Dermatology Ambreen Burroughs MD [facility] DR SHAYY CASTILLO-DERMAT [place], [place] [address] (Wo rk) 10/02/2022 Office Visit Pulmonology Laney Calhoun M D [facility] Pulmonary Medicguido [place], [place] [address] (Wo rk) 11/07/2022 Office Visit Ophthalmology Gifty Bernal MD [facility] [place], [place] [address] (Wo rk) documented as of this encounter Procedures Procedure Name Priority Date/Time Associated Diagnosis Comme [facility] PULMONARY FUNCTION Routine 03/07/2022 11:26 AM ILD (interstiti al Results for this TEST EDT lung disease) procedure are in the results section. documented in this encounter Results Pulmonary Function Testing (03/07/2022 11:26 AM EDT) P athologist Signature FVC Actual 3.29 L COMPAS PFT Pre-BD FVC Pre-BD % of 92 % COMPAS PFT Predicted FVC Predicted 3.56 L COMPAS PFT FVC Pre-BD -0.48 COMPAS PFT Z-Score FVC Lower 2.65 L COMPAS PFT Limits of Normal FEV1 Actual 2.78 L COMPAS PFT Pre-BD FEV1 Pre-BD % 101 % COMPAS PFT of Predicted FEV1 Predicted 2.75 L COMPAS PFT FEV1 Pre-BD 0.07 COMPAS PFT Z-Score FEV1 Lower 2.04 L COMPAS PFT Limits of Normal FEV1 / FVC 84 % COMPAS PFT Actual Pre-BD FEV1/FVC Pre-BD 0.89 COMPAS PFT Z-Score FEV1 / FVC LLN 65 % COMPAS PFT [id number] Actual 3.19 L/s COMPAS PFT Pre-BD [id number] Pre-BD 141 % COMPAS PFT % of Predicted [id number] 2.27 L/s COMPAS PFT Predicted [id number] Pre-BD 0.99 COMPAS PFT Z-Score DLCO Hb Actual 23.20 mL/min/mmHg COMPAS PFT Pre-BD DLCO Hb Pre-BD 99 % COMPAS PFT % of Predicted DLCO Hb Pre-BD -0.06 COMPAS PFT Z-Score DLCO Hb 23.45 mL/min/mmHg COMPAS PFT Predicted DLCO UNC ACT 23.20 mL/min/mmHg COMPAS PFT PRE-BD DLCO UNC PRE-BD 99 % COMPAS PFT % of PRED DLCO UNC PRE-BD -0.06 % COMPAS PFT Z-SCORE DLCO UNC 23.45 mL/min/mmHg COMPAS PFT Predicted DLCO/VA Actual 4.90 mL/min/mmHg COMPAS PFT Pre-BD /L DLCO/VA Pre-BD 120 % COMPAS PFT % of Predicted DLCO/VA Pre-BD 1.26 COMPAS PFT Z-Score DLCO/VA 4.07 mL/min/mmHg COMPAS PFT Predicted /L Specimen (Source) Anatomical Location Collection Method / Collectio n Time Received Time / Laterality Volume Narrative COMPAS PFT - 03/07/2022 11:26 AM EDT FINDINGS: The FEV1, FVC, and FEV1/FVC are within normal limits. Diffusion capacity is normal. The SpO2 decreased from 93% to 91% with ambulation of 500 feet on room air.IMPRESSION: Normal spirometry. No diffusion impairment. Com pared to the last study on 02/11/20, the FVC, FEV1 and DLCO are not significantly changed. Ther e is moderate desaturation with ambulation. Procedure Note Laney Calhoun MD - 03/11/2022 FINDINGS: The FEV1, FVC, and FEV1/FVC ar e within normal limits. Diffusion capacity is normal. The SpO2 decreased from 93% to 91% with ambulation of 500 feet on room air.IMPRESSION: Normal spirometry. No diffusion impairment. Com pared to the last study on 02/11/20, the FVC, FEV1 and DLCO are not significantly changed. Ther e is moderate desaturation with ambulation. Kaleb Dodson MD PFT ORDERABLES Performing Organization Address City/State/ZIP Code Phon e Number COMPAS PFT documented in this encounter Visit Diagnoses Diagnosis ILD (interstitial lung disease) Postinflammatory pulmonary fibrosis documented in this encounter Care Teams Motor Bike Mechanic Relationship Specialty Start Date End Date Samantha Michelle MD PCP - General 09/14/11 [address] [place] [address] documented as of this encounter
--- OUTSIDE RECORDS SUMMARY | 2022-09-15 01:24 | XMS_ITS | Encounter Summary ---
:1955 Author Organization [facility] [place] [address] Care Team Providers Name Role Phone Samantha Michelle MD Primary Care Provider Reason for Visit Reason Comments Eye Problem Long-term use Plaquenil Encounter Details Date Type Department Care Team Description 05/23/2022 Office Visit Ophthalmology at [facility] C Dolores, Exudative age-related macula r degeneration of both eyes with active choroidal neovascularization (Primary Dx); [facility] MD Sahil Long-term use of Plaquenil; [facility] Choroid neovascularization, bilateral; [place], [place] Center Asteroid hyalosis of left eye [phone] [place], [place] [phone] [address] Social History Tobacco Use Types Packs/Day Years Used Date Former Smoker Cigarettes 0.25 7 Quit: 02/07/19 76 Smokeless Tobacco: Never Used Alcohol Use Standard Drinks/Week Comments No 0 (1 standard drink = 0.6 oz pure alcoho l) Sex Assigned at Date Recorded Female 03/23/2021 8:16 AM EDT documented as of this encounter Progress Notes Sahil Bernal MD - 05/23/2022 10:30 AM EDT ASSESSMENT/PLAN: 1. Exudative age-related macular degeneration of both eyes with active choroidal neovascularization 2. Long-term use of Plaquenil 3. 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 Wet AMD/ Adult vitelliform OU AREDS, Amsler grid Today 05/23/2022 there subretinal hyporeflective material is either stable or slightly worse. Given the progression, the symptoms (metamorphopsia) and the occult leakage on FA will treat with avastin AAO video shown/ASRS fact sheet given Discussed that the primary goal of the aVEGFs treatments is the maintenance of the existing vision while some improvement is not rare. Discussed the warning symptoms of endophthalmitis (pain, blurred vision, light sensitivity), the risk for cataracts, retinal tear, retinal detachment, vitreous hemorrhage. Also emphasized that the injections only work for a limited number of weeks and the patients usually require more treatments in the future given that it is a chronic condition. 2. Plaquenil use - Previously on treatment since 04/2019. (2.5 years) - Discontinued ~01/18/2022. No signs of toxicity 3. Asteroid Hyalosis OS - Monitor Follow up in 2 wk tech visit [facility], OCT OU Fu another 3-4wk after that for DFE ?in the mini, OCT OU poss inj OU documented in this encounter Plan of Treatment Upcoming Encounters Date Type Specialty Care Team Description 09/26/2022 Office Visit Dermatology Ambreen Burroughs MD [facility] DR SHAYY CASTILLO-DERMAT [place], [place] [address] (Wo rk) 10/02/2022 Office Visit Pulmonology Laney Calhoun M D [facility] Pulmonary Medicguido [place]ornton [place], [place] [address] (Wo rk) 11/07/2022 Office Visit Ophthalmology Gifty Bernal MD [facility] [address] [place] [address] (Wo rk) documented as of this encounter Procedures Procedure Name Priority Date/Time Associated Diagnosis Comme nts OCT RETINA - OU - Routine 05/23/2022 11:52 Long-term use of Plaquenil Results for this BOTH EYES AM EDT Choroid procedure are i n neovascularization, the resu lts bilateral section. 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 Scan locations include d subfoveal. Progression has been stable. Findings include subretinal scar ring, normal foveal contour, subretinal fluid. Left Eye Quality was good. Scan locations include d subfoveal. Progression has been stable. Findings include subretinal scar ring, normal foveal contour, subretinal fluid. 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
--- OUTSIDE RECORDS SUMMARY | 2022-09-15 01:24 | XMS_ITS | Encounter Summary ---
:1955 Author Organization [facility] [place] [address] Care Team Providers Name Role Phone Samantha Michelle MD Primary Care Provider Reason for Visit Reason Onset Date Comments Medication Refill 02/10/2022 Encounter Details Date Type Department Care Team Description 02/10/2022 Refill [place] [facility]i Herron MD [address] [phone] RHEUMATOLOGY [phone] [place], [place] [address] (Wo rk) Social History Tobacco Use Types Packs/Day Years Used Date Former Smoker Cigarettes 0.25 7 Quit: 02/07/19 76 Smokeless Tobacco: Never Used Alcohol Use Standard Drinks/Week Comments No 0 (1 standard drink = 0.6 oz pure alcoho l) Sex Assigned at Date Recorded Female 03/23/2021 8:16 AM EDT documented as of this encounter Plan of Treatment Upcoming Encounters Date Type Specialty Care Team Description 09/26/2022 Office Visit Dermatology Ambreen Burroughs MD [facility] DR SHAYY CASTILLO-DERMAT [place], [place] [address] (Wo rk) 10/02/2022 Office Visit Pulmonology Laney Calhoun M D [facility] Pulmonary Medicguido thornton [place], [place] [address] (Wo rk) 11/07/2022 Office Visit Ophthalmology Gifty Bernal MD [facility] er [address] [place], [place] [address] (Wo rk) documented as of this encounter Visit Diagnoses Not on filedocumented in this encounter Care Teams Marine Equipment Design Engineer Relationship Specialty Start Date End Date Samantha Michelle MD PCP - General 09/14/11 [address] [place] [address] documented as of this encounter
--- OUTSIDE RECORDS SUMMARY | 2022-09-15 01:24 | XMS_ITS | Encounter Summary ---
:1955 Author Organization [facility] [place] [address] Care Team Providers Name Role Phone Samantha Michelle MD Primary Care Provider Encounter Details Date Type Department Care Team Description 02/14/2022 Telephone Pulmonology at [facility] [place] [address] Social History Tobacco Use Types Packs/Day [...] [facility] DR SHAYY CASTILLO-DERMAT [place], [place] [address] (Wo rk) 10/02/2022 Office Visit Pulmonology Laney Calhoun M D [facility] Pulmonary Mati thornton [place], [place] [address] (Wo rk) 11/07/2022 Office Visit Ophthalmology Gifty Bernal MD [facility] [address] [place], [place] [address] (Wo rk) documented as of this encounter Visit Diagnoses Not on filedocumented in this encounter Care Teams Clinical Trials Systems Administrator Relationship Specialty Start Date End Date Samantha Michelle MD PCP - General 09/14/11 [address] [place] [address] documented as of this encounter
--- OUTSIDE RECORDS SUMMARY | 2022-09-15 01:24 | XMS_ITS | Encounter Summary ---
:1955 Author Organization [facility] [place] [address] Care Team Providers Name Role Phone Samantha Michelle MD Primary Care Provider Reason for Visit Reason Comments Macular Degeneration Encounter Details Date Type Department Care Team Description 08/09/2022 Office Visit Ophthalmology at [facility] C Dolores, Exudative age-related macula r degeneration of both eyes with active choroidal neovascularization; [facility] MD Sahil Long-term use of Plaquenil; [facility] Choroid [place], [place] [address] [place] [address] [place], [place] [address] Social History Tobacco Use Types Packs/Day Years Used Date Former Smoker Cigarettes 0.25 7 Quit: 02/07/19 76 Smokeless Tobacco: Never Used Alcohol Use Standard Drinks/Week Comments No 0 (1 standard drink = 0.6 oz pure alcoho l) Sex Assigned at Date Recorded Female 03/23/2021 8:16 AM EDT documented as of this encounter Progress Notes Sahil Bernal MD - 08/09/2022 1:30 PM EDT ASSESSMENT/PLAN: 1. Exudative age-related macular degeneration of both eyes with active choroidal neovascularization 2. Long-term use of Plaquenil 3. Choroid neovascularization, bilateral Visual Acuity Visual Acuity (Snellen - Linear) Right Left Dist cc 20/20 20/20 Near cc 20/25-2+1 20/25-2 Correction: Glasses 1. Adult vitelliform vs subclinical wAMD OU AREDS, Amsler grid No response to avastin #1 on 05/23/22 Today 08/09/2022 the SRF is stable, almost 2.5mo after the last injection and there are no signs of active exudation. Will monitor 2. Plaquenil use - Previously on treatment since 04/2019. (2.5 years) - Discontinued ~01/18/2022. No signs of toxicity 3. Asteroid Hyalosis OS - Monitor Fu 2-3mo for OCT FA OD>OS, DFE ?in the exam vs mini room OU (poss inj OU) documented in this encounter Plan of Treatment Upcoming Encounters Date Type Specialty Care Team Description 09/26/2022 Office Visit Dermatology Ambreen Burroughs MD [facility] DR SHAYY CASTILLO-DERMAT [place], [place] [address] (Wo rk) 10/02/2022 Office Visit Pulmonology [place], Jerry Rizzo [facility] Pulmonary Medicguido [place], [place] [address] (Wo rk) 11/07/2022 Office Visit Ophthalmology Gifty Bernal MD [facility] [place], [place] [address] (Wo rk) documented as of this encounter Procedures Procedure Name Priority Date/Time Associated Diagnosis Comme nts OCT RETINA - OU - Routine 08/09/2022 3:09 PM Exudative age-rel ated Results for this BOTH EYES EDT macular degeneration procedu re are in of both eyes with the result s active choroidal section. neovascularizati on Long-term use of Plaquenil Choroid neovascularization, bilateral documented in this encounter Results OCT Retina [...] fluid. Sahil Bernal MD [facility] documented in this encounter Visit Diagnoses Diagnosis Exudative age-related macular degenerati on of both eyes with active choroidal neovascularization Long-term use of Plaquenil Choroid neovascularization, bilateral documented in this encounter Care Teams Fire Pilot Relationship Specialty Start Date End Date Samantha Michelle MD PCP - General 09/14/11 [address] [place] [address] documented as of this encounter
--- OUTSIDE RECORDS SUMMARY | 2022-09-15 01:24 | XMS_ITS | Encounter Summary ---
:1955 Author Organization [facility] [place] [address] Care Team Providers Name Role Phone Samantha Michelle MD Primary Care Provider Reason for Visit Reason Comments Follow-up Encounter Details Date Type Department Care Team Description 03/21/2022 Office Visit Dermatology at Ambreen Fernandes, [address] [facility] [place] [address] [facility] [phone] [place], [place] [address] (Wo rk) Social History Tobacco Use Types Packs/Day Years Used Date Former Smoker Cigarettes 0.25 7 Quit: 02/07/19 76 Smokeless Tobacco: Never Used Alcohol Use Standard Drinks/Week Comments No 0 (1 standard drink = 0.6 oz pure alcoho l) Sex Assigned at Date Recorded Female 03/23/2021 8:16 AM EDT documented as of this encounter Progress Notes Ambreen Burroughs MD - 03/21/2022 4:30 PM EDT Images from the original note were not included. DEPARTMENT OF DERMATOLOGY Dermatology-Rheumatology Specialty Clinic Provider: AMBREEN BURROUGHS MD Visit conducted in conjunction with Savi Herron MD of Rheumatology. Please see her same-day medical note Date of Service: 03/21/2022 Preferred name Brandi Preferred contact method for results [x] Phone (cell) [] MyD-H [] Letter Permission to leave detailed message Yes Permission to discuss care with No Relevant Diagnosis: Dermatomyositis Personal History Date, relevant details Biopsies 05/06/19:??Right upper arm, punch biopsy: Vacuolar interface dermatitis. Discussion:??Sections show a basket weave stratum corneum with focal parakeratosis overlying a thin epidermis. Subtle vacuolar interface change is present with few scattered dyskeratotic cells. There is associated superficial perivascular lymphohistiocytic inflammation. Papillary dermal edema and deep perivascular inflammation are not seen to suggest polymorphous light eruption. Multiple deeper sections have been examined. Overall, the findings are consistent with the clinical impression of connective tissue disease, including dermatomyositis and lupus. Similar histologic changes may be seen in viral exanthem or drugreaction. Clinicopathologic correlation is recommended. 09/27/21: left upper arm, prominent basement membrane associated with ectatic superficial vessels Discussion: Significant inflammatory component or interface changes are not present. While dermatomyositis may share some of these findings, however, the present findings are not very specific or diagnostic. Relevant diagnostic labs 12/11/2018: (+) JANETH 1:160 02/13/2019: Weakly positive anti-LORI-1 antibody RF mildly elevated, elevated CRP CK WNL Imaging, additional workup/studies 05/19/19:??CT C/A/P ???Lesions in the liver 06/02/19, 09/01/19, 06/20/21:??MRI of right lower extremity??negative for myositis, but did show a soft tissue mass, most suggestive of a cyst??- seen by Ortho 10/201911/07/21: MRI of left shoulder: No soft tissue mass or abnormal signal. Diffuse slight decrease T1 signal of the marrow of RIGHT humerus likely represents conversion to hematopoietic marrow. Finding isnonspecific and can be seen in anemia. Consider clinical correlation if indicated. 03/07/2022: CT chest wo contrast: No CT evidence of fibrotic lung disease or other interstitial lung disease. 03/07/2022: PFT: normal spirometry. No diffusion impairment. No significant changes from last study on 02/11/2020 Previous treatments Diclofenac gel Synalar solution Plaquenil (04/2019-07/2021 and 09/2021-12/2021) Methotrexate 20 mg weekly + folic acid daily (03/2021-11/2021) Current treatments Triamcinolone ointment Meloxicam Gabapentin 100 mg BID Malignancy screening (dermatomyositis only) 05/30/19: PET scan, soft tissue density in the anterior uterine wall suggestive of a fibroid 02/11/20: PFT - normal 08/2020: mammogram 06/20/21: transvaginal US, fibroid uterus, otherwise normal HPI Brandi Ruiz is a 66 y.o. seen today in the Dermatology-Rheumatology clinic for continued management of dermatomyositis. Last seen in this clinic: 01/24/2022 - Condition better/worse/stable: same - Interval changes in health: PFT and CT - normal O2 stat is low. - Relevant medications: - Gabapentin 100 mg daily BID - Meloxicam 15 mg daily (restarted 02/07/2022) - Fluocinolone solution PRN (rarely) - Triamcinolone ointment PRN (occasionally at night when itchy) - Medication sfx?: none - Last labs: 11/01/21 (CBC, LFTs, CK essentially WNL) - Specific concerns today: - Rash on the arms and face has worsened with increasing redness. She reports of a hot sensation on the face. - She continues to have some SOB, which initially started in January of 2020. She is not aware of having any Covid-19 infection but she has been exposed. Up to date with vaccinations (tradeNOW). - She had a loop recorder placed, although she has not had any episodes since this was placed. - Her macular degeneration continues with continued leaking. - She is scheduled with pulmonology on 04/12/2022 - She has a family history of paroxysmal atrial fibrillation with personal history of SVT (started at age 17) - She reports of fatigue, which she believes is worse than when she was on Plaquenil and methotrexate. Has noticed some improvement in her arm muscle strength. - Denies any other changes in symptoms. She does have some trouble swallowing, which has been present for a couple of years (had swallow tests previously, which were normal); has to eat slowly, describes symptoms as aspiration like. - Since she was last seen, she has been having a sinus infection as well as cough (treated with antibiotics). - Denies Raynaud's. Medications: Reviewed in eD-H Allergies: Reviewed in eD-H PMH: Amyopathic dermatomyositis Bilateral knee replacement Hypothyroidism Anxiety Anemia Mild asthma ROS: General: Feeling well Skin: Denies other skin complaints Exam: General: NAD, pleasant, cooperative Skin Examination: A focused skin examination of the face, back, scalp, and upper extremities, significant for the following: Assessment/Plan: A. Dermatomyositis, currently flaring (worsening skin involvement) now off Plaquenil and MTX- Central facial erythema and increased patchy erythema on the bilateral upper arms. Minor erythema on the scalp. Dropout and dilation on the left second and third finger. - Discussed treatment options at this time, including Cellcept. Will plan to pursue further cardiology work up prior to consideration of Cellcept. - Continue Rx fluocinolone (Synalar) 0.01% solution: Apply topically to scalp/ears 1-2x/day for up to 2 weeks when flaring; then use 2-3x/week for maintenance. May apply at night and wash out in morning.?? - Continue Rx triamcinolone ointment. - Labs: JANETH, myositis panel, and Covid-19 nucleocapsid antibody (for previous infection) - Dr. Herron plans to contact patient's protective services officer, Dr. Jernigan, due to SOB and cardiac stress ECHOfindings and desaturation during stress test; relation to dermatomyositis (?cardiomyopathy secondaryto DM) vs. ? Previous Covid-19 infection vs other. 35 minutes spent in chart review, visit, interdisciplinary discussion with Dr. Herron, coordination of care, and documentation. Follow Up: RTC pending SOB workup, will tentatively schedule in 2-3 months in: [] Dermatology-Rheumatology clinic [] Dr. Burroughs dermatology clinic [] Dr. Herron rheumatology clinic in [place] [] Reminder placed in system [] Appointment scheduled before exiting Scribe attestation: Karmen Tijerina CMA and LAITH Collnis have performed the documentation forthis encounter in the presence of and acting as scribes for AMBREEN BURROUGHS MD. I performed the above scribed service and agree with the accuracy of the documentation in this encounter. Ambreen Burroughs MD Dancer Or Choreographer of Dermatology Department of Dermatology [facility] cc: Samantha Michelle MD No ref. provider found documented in this encounter Plan of Treatment Upcoming Encounters Date Type Specialty Care Team Description 09/26/2022 Office Visit Dermatology Ambreen Burroughs MD [facility] [address] [place], [place] [address] (Wo rk) 10/02/2022 Office Visit Pulmonology Laney Calhoun M [facility] Pulmonary Medici [place], [place] [address] (Wo rk) 11/07/2022 Office Visit Ophthalmology Gifty Bernal MD [facility] [place], [place] [address] (Wo rk) documented as of this encounter Results JANETH (03/21/2022 5:44 PM EDT) Component Value Ref Test Analysis Performed At [facility] Method Time Signature Antinuclear Ab [place] Test ?Result ? Flag ??Unit ??RefValue JERRY [facility] Antinuclear Ab, HEp-2 ? <1:80 (Negative) ? <1:80 (Negative) HOSPITAL ??Substrate, S LABORATORY ? ADDITIONAL INFORMATION ------ ?Method: Immunofluorescence using HEp-2 cellular substr ate. ?Test Performed by: ?[facility] ?[address] [place] [address] ?Retail Shift Leader: Christophe Seymour M.D. Ph.D.; IA# [phone] Specimen Anatomical Collection Method Collection Time Receive d Time (Source) Location / / Volume Laterality Blood 03/21/2022 5:44 PM 2 8:46 EDT AM EDT Resulting Agency Comment Spec In Lab Ambreen Burroughs MD IMMUNOLOGY ORDERABLES Performing Organization Address City/State/ZIP Code Phon [place] [address] (ABNORMAL) Myositis Antibody Panel Plus (03/21/2022 5:44 PM EDT) Component Value Ref Test Analysis Performed At [facility] Range Method Time Signature Myositis Ab [place] Panel Test ? Result ? Flag ??Unit ?? RefValue J[facility]Y [facility] MyoMarker 3 Plus Profile HOSPI MERI ??Anti-Yolie-1 [...] ?approved by the Food and Drug Administration. ??Wwzk-Vv-9-Ab ? Negative ?Negative ?This test was developed and its performance characteri stics ?determined by [facility]. It has not been cleared or ?approved by the Food and Drug Administration. ??Fljw-LKZ-6foxth Ab ? <20 ?Units ??<20 ?This test [...] by the Food and Drug Administration. ??Anti-U1 DANCING TEACHER Ab ? <20 ?Units ??<20 ??Anti-U2 DANCING TEACHER Ab ? Negative ?Negative ?This test was developed and its performance characteri stics ?determined by [facility]. It has not been cleared or ?approved by the Food and Drug Administration. ??Anti-U3 DANCING TEACHER (Fibrillarin) ?Negative ?Negative ?This test was developed and its performance characteri stics ?determined by [facility]. It has not been cleared or ?approved by the Food and Drug Administration. ?Interpretation for Anti-Yolie-1, Pgzd-LXB-0rlxqb, ?Anti-MDA-5, Anti-NXP-2, Anti-SAE1, Anti-PM/Scl-1 00, ?Anti-SS-A 52 kD, Anti-U1 DANCING TEACHER: ?Negative: ?<20 ?Weak Positive: ? 20 - 39 ?Moderate Positive: ? 40 - 80 ?Strong Positive: ? >80 ?. ?Test Performed by: ?[facility] ?[address] ?[place] [address] (A) Specimen Anatomical Collection Method Collection Time Receive d Time (Source) Location / / Volume Laterality Blood 03/21/2022 5:44 PM 8:46 EDT AM EDT Resulting Agency Comment Spec In Lab Ambreen Burroughs MD IMMUNOLOGY ORDERABLES Performing Organization Address City/State/[place] [address] COVID-19 Nucleocapsid Antibody (03/21/2022 5:44 PM EDT) [facility] Method Time Signature SARS-CoV-2 Not Detected Not Detected [place] Nucleocap Ab [facility] Comment: This test only detects antibodies [...] respiratory syndrome coronavirus 2, also known as novel coronavirus or 2019-nCoV) infection. A ? [...] due to past or present infection with zyi-OOIR-PyM-2 coronaviru s strains, such as coronavirus HKU1, NL63, OC43, or 229E. This test was performed using the Elecsy s Boxf-SMFU-TrF-2 total antibody test on the Lev Drew e801 analyzer. This s erology test is available following FDA Emergency Use Authorization, however it has not been reviewed by the FDA, nor is it FDA cleared or approved. The perfo rmance characteristics of this test were determined by the Department of Pat hology and Laboratory Medicine at [facility]. The laboratory is certified under the Clinical [...] clinical management guidance information are available at th e CDC Coronavirus Disease 2019 (COVID-19) webpage under Information fo r Healthcare Professionals (https://www.cdc.gov/coronavirus/2019-nc ov/hcp/index.html) Additional information about this and ot her EUA tests can be found in provider and patient fact sheets at the following FDA website: https://www.fda.gov/medical-devices/qleprfnwfpn-pqifosm-8211-itcak-69-vmwcumkkg- xzc-vqqalqkssgrmzx-zawzpku-devices/ohahf-wbgkekwbtlg-mvvr Specimen Anatomical Collection Method Collection Time Receive d Time (Source) Location / / Volume Laterality Blood 03/21/2022 5:44 PM 6:05 EDT PM EDT Ambreen Burroughs MD CHEMISTRY ORDERABLES Performing Organization Address City/State/[place] [address] documented in this encounter Visit Diagnoses Diagnosis Dermatomyositis documented in this encounter Care Teams Curator Of Manuscripts Relationship Specialty Start Date End Date Samantha Michelle MD PCP - General 09/14/11 [address] [place] [address] documented as of this encounter
--- OUTSIDE RECORDS SUMMARY | 2022-09-15 01:24 | XMS_ITS | Encounter Summary ---
:1955 Author Organization [facility] [place] [address] Care Team Providers Name Role Phone Samantha Michelle MD Primary Care Provider Reason for Visit Consultation (Routine) - Closed Specialty Diagnoses / Procedures Referred By Contact Refer red To Contact Pulmonology Diagnoses ILD (interstitial lung disease) Ambreen Burroughs MD [facility] Pulmonology 5c [facility] [address] R [facility] [place] [address] [place] [address] Referral ID Status Reason Start Date Expiration Date Visits V isits Requested Authorized [id number] Closed Consult, 01/27/2022 01/27/2023 1 1 Test & Treat Encounter Details Date Type Department Care Team Description 04/12/2022 Office Visit Pulmonology at [facility] Laney Calhoun, Moderate persistent asthma, unspecified whether complicated; [facility] Environmental allergies; [facility] Obesity, unspecified classif ication, unspecified obesity type, unspecified whether serious comorbidity present; [facility] Gastroesophageal reflux disease, unspeci fied whether esophagitis present [id number] Pulmonary [phone] [place] [address] Social History Tobacco Use Types Packs/Day Years [...] Sign Reading Time Taken Comments Blood Pressure 143/66 04/12/2022 7:42 AM EDT Pulse 69 04/12/2022 7:42 AM EDT Temperature 36.3 ??C (97.4 ??F) 04/12/2022 7:42 AM EDT Respiratory Rate 16 04/12/2022 7:42 AM EDT Oxygen Saturation 96% 04/12/2022 7:42 AM EDT Inhaled Oxygen Concentration - - Weight 150.4 kg (331 lb 8 oz) 04/12/2022 7:42 AM EDT Height 175.3 cm (5' 9.02) 04/12/2022 7:42 AM EDT Body Mass Index 48.93 04/12/2022 7:42 AM EDT documented in this encounter Patient Instructions Patient InstructionsLanye Calhoun MD - 04/12/2022 8:43 AM EDT Start symbicort BID 2 puffs with spacer. Continue Claritin daily. Labs today for allergy markers. Work on increasing activity. Think about strategies for weight management. documented in this encounter Progress Notes Laney Calhoun MD - 04/12/2022 8:00 AM EDT Images from the original note were not included. [facility] Section of Pulmonary and Critical Care Medicine Outpatient Consultation Date of Encounter: 04/12/2022 Reason for Evaluation: Ms. Brandi Ruiz returns to the pulmonary clinic for follow-up of cough, asthma, possible ILD. I independently interviewed the patient, have examined the patient if this visit was conducted in the office and have reviewed available records. Dear Samantha Michelle MD, As you know, Brandi Ruiz is a 66 y.o. female with asthma, chronic cough and possible ILD, GERD, paroxysmal Afib, previously evaluated by Dr. Theodore in pulmonary clinic in 2020. She returns with a variety of new concerns. Ms. Ruiz reports that she has been having worsening dyspnea. She describes getting breathless. Worse with bending over. Sometimes worse when wearing a mask, but not specific to this. Gets breathless with conversation, walking across the house, doing laundry. She takes frequent breaks from activity to catch her breath. She finds this is limiting activity. She has gained weight, but thinks this was because activity became more difficult from dyspnea. Over the past month she is also experiencing chest pain in a band radiating from left to right chest, can be worse with movement or deep breath, waxes and wanes. Better with rest. No precipitating activities. She has a slight cough in the morning, occasional yellow small sputum in the morning. Doesn't cough throughout the day. Rarely wheezing. Occasional chest tightness, but not consistent with dyspnea. In 2020 she felt a course of doxycycline improved her cough a significant amount. Breo inhaler didn't help her dyspnea at all, and she stopped this a long time ago. Has albuterol available but hasn't really used it. GERD is controlled on PPI. She does get mild seasonal allergies, takes claritin for this currently. 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 No prior lung disease. She reports the chronic cough has been present for years, not productive. Dyspnea started after her first covid vaccine later in 2020. Got the moderna primary and booster #1. In 2019 she developed cough, fevers, fatigue, violacious rash on arms and puffiness above eyebrows, and was diagnosed with dermatomyositis after extensive rheumatology work-up. Skin biopsy completed atthat time. Still has sun rash and ongoing fatigue, muscle pain. She was previously on plaquenil, methotrexate (for about 4 months.) She has known atrial enlargement, and did have tachyarrythmias for a while. She has recently undergone workup for possible cardiac etiology including a stress test. She is a former smoker, quit in 1974. Had heavy second hand smoke exposure as a kid. No recent smokeexposure. 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 She grew up in [place], later lived in [place] for 37 years, [place] for 13 years. Hasn't noticed any geographic connections with dyspnea. Family history notable for a sister with asthma. Current Medications at Start of Encounter: Outpatient Medications Prior to Visit Medication Sig Dispense Refill ??? meloxicam (MOBIC) 15 mg Tablet Take [...] HPI, and otherwise negative. Physical Examination: BP 143/66 Pulse 69 Temp 36.3 ??C (97.4 ??F) (Temporal) Resp 16 Ht 175.3 cm (5' 9.02) Wt (!) 150.4 kg (331 lb 8 oz) SpO2 96% BMI 48.93 kg/m?? GEN: NAD, well appearing, conversational HEENT: MMM, clear OP, there is rhinitis, neck supple with no adenopathy CV: RRR, no murmur PULM: normal WOB, lungs are generally clear, no focal crackles or wheezing, no cyanosis or clubbing ABD: soft, ND MSK: no joint swelling, easily ambulatory EXT: no edema, not tender NEURO: AAO, voice clear Pulmonary Function Test Results: Date FVC FEV1 Ratio TLC RV RV/TLC ERV DLCO 6MWT 03/07/2022 3.29 L (92% pred) 2.78 L (101% pred) 84 99% pred I personally reviewed flow-volume loops and other tests. Results are most consistent with normal airflow, normal diffusing capacity. Labs, Microbiology and Imaging: I personally reviewed relevant laboratory, microbiologic and radiology results which were significant for: CT chest 03/07/2022: supine and prone images, normal lung parenchyma, no interstitial findings; PA ismildly enlarged; incidental finding suggestive of hepatic steatosis Stress ECHO 12/2021: SVT during exercise; exercise capacity below average; normal LVEF, left atria isseverely dilated, Eosinophils last 300 in 10/2021 Immunization History: Flu vaccine: COVID-19 vaccine: had moderna primary series and booster #1 Pneumovax: Prevnar-13: Impression and Recommendations: Brandi Ruiz is a 66 y/o woman with longstanding asthma and mild allergic rhinitis, chronic cough,who now has persistent exertional dyspnea, in the setting of controlled GERD and increasing obesity,as well as paroxysmal Afib and SVT. PFTs show normal airflow and normal diffusing capacity, and do not indicate any restriction. Chest CT shows clear lung worrell, with no evidence for ILD or infection.Asthma could be playing a role in her ongoing dyspnea, and I recommended repeating a trial of ICS/LABA to see if this improves her dyspnea or exercise tolerance. She is open to trying this, and will start with symbicort 160-4.5 for moderate persistent asthma. I also suggested we assess for eosinophilia and check IgE level to look for allergic markers that might explain increased asthma activity this year. She is already on claritin for allergies, and will continue this. A recent stress ECHO indicates suboptimal exercise tolerance, which could also be playing a role in her dyspnea. Increased exercise for reconditioning and weight loss is also recommended, counseling provided. She reports her GERD is well controlled; this remains important given her history of chronic cough. We will follow up closely to see if interventions for asthma improve her symptoms this spring. Summary Recommendations: - start symbicort 160-4.5 2 puffs BID with spacer, prescribed - continue claritin daily - CBC with diff and IgE ordered - increased exercise encouraged Follow-up with in-office visit in 2 months Thank you for involving me in Ms. Ruiz's care. Please feel free to contact me with any further questions or concerns. I personally spent 40 minutes of this encounter with the patient discussing their pulmonary disease and treatment recommendations as outlined in my assessment and plan above. This visit involved a total of 50 minutes of clinical time on day of visit. Laney Calhoun MD [facility] PULMONOLOGY AT [facility] [address] Dept: [phone] Loc: [phone] documented in this encounter Plan of Treatment Upcoming Encounters Date Type Specialty Care Team Description 09/26/2022 Office Visit Dermatology Ambreen Burroughs MD [facility] DR [address] [place], [place] [address] ( rk) 10/02/2022 Office Visit Pulmonology Laney Calhoun [facility] Pulmonary [place], [place] [address] (Wo rk) 11/07/2022 Office Visit Ophthalmology Gifty Bernal MD [facility] [place] [address] (Wo rk) Scheduled Orders Name Type Priority Associated Diagnoses Order S chedule CBC (with Diff) Lab Routine Moderate persistent Expec geetha: 04/12/2022 asthma, unspecified (Approxi mate), whether complicated Expires: 10/12/2022 Immunoglobulin E (IgE) Lab Routine Moderate persisten t Expected: 04/12/2022, asthma, unspecified Expires: 10/12/2022 whether complicated documented as of this encounter Visit Diagnoses Diagnosis Moderate persistent asthma, unspecified whether complicated Environmental allergies Allergic rhinitis, cause unspecified Obesity, unspecified classification, uns pecified obesity type, unspecified whether serious comorbidity present Gastroesophageal reflux disease, unspeci fied whether esophagitis present documented in this encounter Care Teams Airport Traffic Controller Relationship Specialty Start Date End Date Samantha Michelle MD PCP - General 09/14/11 [address] [place] [address] documented as of this encounter
--- OUTSIDE RECORDS SUMMARY | 2022-09-15 01:24 | XMS_ITS | Encounter Summary ---
:1955 Author Organization [place] [address] Care Team Providers Name Role Phone Samantha Michelle MD Primary Care Provider Reason for Visit Reason Comments Procedure High Dollar Medication (Routine) - Authorized Specialty Diagnoses / Procedures Referred By Contact Refer red To Contact Ophthalmology Diagnoses Nonexudative age-related macular degeneration, bilateral, intermediate dry stage Avastin OU Dolores Bernal, Procedures BEVACIZUMAB INJECTION TC BEVACIZUMAB, 10MG, INJECTION (AVASTIN) [id number] Bevacizumab (Avastin) MD Sahil Baxter [place] [facility] [address] [place] [address] Fax: Referral ID Status Reason Start Date Expiration Date Visits V isits Requested Authorized [id number] Authorized 05/23/2022 11/25/2022 4 4 Encounter Details Date Type Department Care Team Description 05/23/2022 Procedure visit Ophthalmology at [facility] Bernal e age-related [facility] macular degeneration of [facility] both eyes with active [address] [place], [place] [address] [address] [place], [place] [phone] [id number] Social History Tobacco Use Types Packs/Day Years Used Date Former Smoker Cigarettes 0.25 7 Quit: 02/07/19 76 Smokeless Tobacco: Never Used Alcohol Use Standard Drinks/Week Comments No 0 (1 standard drink = 0.6 oz pure alcoho l) Sex Assigned at Date Recorded Female 03/23/2021 8:16 AM EDT documented as of this encounter Patient Instructions Patient InstructionsDahlia Griffin - 05/23/2022 11:32 AM EDT Today you had your both eye(s) injected with a medication called Avastin. -Please pay attention to your future scheduled appointments if you are having repeat injections. Future injections in the same eye must be at least 28 days apart. -Please, do not rub or wipe your eye for 24-48 hours after the injection as it would create more irritation.If you feel you must, close your eyes, dab gently, and use the sterile pink saline bullets toflush your eyes. -Try to avoid getting tap water or bath water in the eye for 48 hours. Do not swim for 48 hours. -Caution about driving: We always recommend having a reach lift truck driver on the day you get an injection. If you do not feel comfortable driving after your procedure, please allow your vision to recover or make alternate arrangements. - Here are the Normal and Expected side effects: -Do not be surprised or worried if you have a few bloody tears after the injection. You may have a small blood spot on the white of your eye (subconjunctival hemorrhage) or the appearance of a small blister or bump where the injection was given. -You may notice your vision seems a bit hazy and you may see floaters. -All of these things should gradually become less noticeable over the next few days. -You may also have some mild irritation or a foreign body sensation for up to 24 hours. - Here are the Not Normal and Not Expected side effects: Call [phone] (Eye Clinic) DAY or NIGHT, HOLIDAY or WEEKEND if you experience any of the following: = Severe, increasing pain in the eye = Significant, dramatic vision loss = Redness on and around the eye that gets worse, not better = Severe light sensitivity Call [phone] or go to the Emergency room immediately if you experience = Chest pain = Abdominal pain = Weakness or numbness on any part of your body = Slurred speech = Or any other symptoms of concern documented in this encounter Plan of Treatment Upcoming Encounters Date Type Specialty Care Team Description 09/26/2022 Office Visit Dermatology Ambreen Burroughs MD [facility] [address]-DERMAT [place], [place] [address] (Wo rk) 10/02/2022 Office Visit Pulmonology Laney Calhoun M D [facility] Pulmonary Medicguido thornton [place], [place] [address] (Wo rk) 11/07/2022 Office Visit Ophthalmology Gifty Bernal MD [facility] [place], [place] [address] (Wo rk) documented as of this encounter Procedures Procedure Name Priority Date/Time Associated Diagnosis Comme nts INTRAVITREAL Routine 05/23/2022 1:46 Exudative age-related Res ults for INJECTION PM EDT macular degeneration of this procedure PHARMACOLOGIC AGENT both eyes with active are in the AMB - OU - BOTH EYES choroidal results neovascularization section. documented in this encounter Results Intravitreal Injection of Pharmacologic Agent - OU - BOTH EYES (05/23/2022 1:46 PM EDT) Anatomical Region Laterality Modality Other Specimen (Source) Anatomical Location Collection Method / Collectio n Time Received Time / Laterality Volume Narrative 05/23/2022 1:46 PM EDT Pre Operative Diagnosis: Age-related Exudative Macular Degenerati on with Choroidal Neovascularization Post Operative Diagnosis: Age-related Exudative Macular Degenerati on with Choroidal Neovascularization Procedure: Intravitreal injection of Rose Mary stin 1.25 mg both eyes Assist: Operations Boardman Anesthesia: Topical Proparacaine and Top ical 4% Lidocaine Complications: None Procedure: The patient was taken to the minor treat ment suite where the patient was reidentified using name and birthdate as critical identifiers. The correct eyes as the operative sites were reident ified by preplaced site rika, and the consent form was actively reviewed b y the acute care nursing assistant and the surgeon. Both eyes were prepped including instill ation of Betadine 5% into the cul de sac for 5 minutes, facial prep with o phthalmic Betadyie and placement of a lid speculum. The Surgeon performed hand washing preop eratively, used gloves, and wore a face mask or used no talking technique during the procedure, as did the surgical assist. After topical anesthesia of the injectio n site using multiple Q-tips soaked in 4% Lidocaine, Bevacizumab (Rose Mary stin) 1.25 mg was injected with a 30 gauge needle directed toward the cent er of the vitreous cavity, a measured 4 mm posterior to the limbus at the inferotemporal meridian. The patient demonstrated a minimum of counti ng fingers vision post injection, and received a post injection drop of Be tadine OU. An optional patch OU was offered to the patient, and the dennis ent was asked to call the Eye Clinic or Eye Doctor java web application developer, should the y develop pain in the treated eyes, increasing redness or a discharge from the eye(s). Condition on Discharge: Stable. Sahil Bernal MD [facility] documented in this encounter Visit Diagnoses Diagnosis Exudative age-related macular degenerati on of both eyes with active choroidal neovascularization documented in this encounter Care Teams Impregnator And Drier Relationship Specialty Start Date End Date Samantha Michelle MD PCP - General 09/14/11 [address] [place] [address] documented as of this encounter
--- OUTSIDE RECORDS SUMMARY | 2022-09-15 01:24 | XMS_ITS | Encounter Summary ---
:1955 Author Organization [place] [address] Care Team Providers Name Role Phone Samantha Michelle MD Primary Care Provider Encounter Details Date Type Department Care Team Description 02/01/2022 Telephone Dermatology at [facility] Ambreen Burroughs MD [address] [place] [address] [facility] [phone] [place], [place] [address] (Wo rk) Social History Tobacco Use Types Packs/Day Years Used Date Former Smoker Cigarettes 0.25 7 Quit: 02/07/19 76 Smokeless Tobacco: Never Used Alcohol Use Standard Drinks/Week Comments No 0 (1 standard drink = 0.6 oz pure alcoho l) Sex Assigned at Date Recorded Female 03/23/2021 8:16 AM EDT documented as of this encounter Miscellaneous Notes Telephone Encounter - Lisset Escoto - 02/01/2022 10:54 AM EST I left a voicemail for Brandi Ruiz requesting a call back to schedule derm/rheum follow up in February. Telephone Encounter - Lisset Escoto - 02/01/2022 10:54 AM EST ----- Message from Yuliana Barboza sent at 01/24/2022 12:10 PM EST ----- 1 month in derm-rheum documented in this encounter Plan of Treatment Upcoming Encounters Date Type Specialty Care Team Description 09/26/2022 Office Visit Dermatology Ambreen Burroughs MD [facility] [address] CASTILLO-DERMAT [place], [place] [address] (Wo rk) 10/02/2022 Office Visit Pulmonology Laney Calhoun M D [facility] Pulmonary Medici [place], [place] [address] (Wo rk) 11/07/2022 Office Visit Ophthalmology Gifty Bernal MD [facility] [place], [place] [address] (Wo rk) documented as of this encounter Visit Diagnoses Not on filedocumented in this encounter Care Teams Financial Solutions Advisor Relationship Specialty Start Date End Date Samantha Michelle MD PCP - General 09/14/11 [address] [place] [address] documented as of this encounter
--- OUTSIDE RECORDS SUMMARY | 2022-09-15 01:24 | XMS_ITS | Encounter Summary ---
:1955 Author Organization [facility] [address] Care Team Providers Name Role Phone Samantha Michelle MD Primary Care Provider Encounter Details Date Type Department Care Team Description 12/29/2021 Telephone Cardiology at [facility] Ayesha Jernigan MD [facility] [place] [address] [address] [place], [place] [id number] [phone] (Wo rk) Social History Tobacco Use Types Packs/Day Years Used Date Former Smoker Cigarettes 0.25 7 Quit: 02/07/19 76 Smokeless Tobacco: Never Used Alcohol Use Standard Drinks/Week Comments No 0 (1 standard drink = 0.6 oz pure alcoho l) Sex Assigned at Date Recorded Female 03/23/2021 8:16 AM EDT documented as of this encounter Miscellaneous Notes Telephone Encounter - Ayesha Jernigan MD - 12/29/2021 2:45 PM EST I called Ms. Ruiz to let her know the results of her ziopatch. This did not show any arrhythmias of concern. I was only able to leave a message but she has a f/u appt with me documented in this encounter Plan of Treatment Upcoming Encounters Date Type Specialty Care Team Description 09/26/2022 Office Visit Dermatology Ambreen Burroughs MD [facility] [address]DERMAT [place], [place] [address] (Wo rk) 10/02/2022 Office Visit Pulmonology Laney Calhoun M D [facility] Pulmonary Medicguido thornton [place], [place] [address] (Wo rk) 11/07/2022 Office Visit Ophthalmology Gifty Bernal MD [facility] [place], [place] [address] (Wo rk) documented as of this encounter Visit Diagnoses Not on filedocumented in this encounter Care Teams Vocal Performer Relationship Specialty Start Date End Date Samantha Michelle MD PCP - General 09/14/11 [address] [place] [address] documented as of this encounter
--- OUTSIDE RECORDS SUMMARY | 2022-09-15 01:24 | XMS_ITS | Encounter Summary ---
:1955 Author Organization [facility] [place] [address] Care Team Providers Name Role Phone Samantha Michelle MD Primary Care Provider Reason for Visit Reason Comments Follow-up Encounter Details Date Type Department Care Team Description 06/13/2022 Office Visit Dermatology at [facility] High risk medication use; Shayy Arguello MD Dermatomyositis [address] [facility] [address] [facility] [phone] [facility] [address] Social History Tobacco Use Types Packs/Day Years [...] Sign Reading Time Taken Comments Blood Pressure 138/60 06/13/2022 3:33 PM EDT Pulse 69 06/13/2022 3:33 PM EDT Temperature - - Respiratory Rate - - Oxygen Saturation 98% 06/13/2022 3:33 PM EDT Inhaled Oxygen Concentration - - Weight 150.4 kg (331 lb 9.2 oz) 06/13/2022 3:33 PM EDT Height - - Body Mass Index 48.94 04/12/2022 7:42 AM EDT documented in this encounter Progress Notes Nicci Nava, GASTROENTEROLOGIST - 06/13/2022 3:30 PM EDT Images from the original note were not included. DEPARTMENT OF DERMATOLOGY Dermatology-Rheumatology Specialty Clinic Provider: AMBREEN BURROUGHS MD Visit conducted in conjunction with Savi Herron MD of Rheumatology. Please see her same-day medical note Date of Service: 06/13/2022 Preferred name Brandi Preferred contact method for results [x] Phone (Cell) [] MyD-H [] Letter Permission to leave [...] exanthem or drugreaction. Clinicopathologic correlation is recommended. ?? 09/27/21: Left upper arm, prominent basement membrane associated with ectatic superficial vessels Discussion: Significant inflammatory component or interface changes are not present. While dermatomyositis may share some of these findings, however, the present findings are not very specific or diagnostic. Relevant diagnostic labs 12/11/2018: (+) JANETH 1:160 02/13/19: Weakly positive anti-LORI-1 antibody RF mildly elevated, elevated CRP CK WNL 03/21/22: (+) Myositis Ab panel, essentially the same as in 2019 (weak positive anti-LORI antibody) (-) JANETH Imaging, additional workup/studies 05/19/19:??CT C/A/P ???Lesions in the liver ?? 06/02/19, 09/01/19, 06/20/21:??MRI of right lower extremity??negative for myositis, but did show a soft tissue mass, most suggestive of a cyst??- seen by Ortho 10/2019 ?? 11/07/21: MRI of left shoulder: No soft tissue mass or abnormal signal. Diffuse slight decrease T1 signal of the marrow of RIGHT humerus likely represents conversion to hematopoietic marrow. Finding isnonspecific and can be seen in anemia. Consider clinical correlation if indicated. ?? 03/07/2022: CT chest wo contrast: No CT evidence of fibrotic lung disease or other interstitial lung disease. ?? 03/07/2022: PFT: normal spirometry. No diffusion impairment. No significant changes from last study on 02/11/2020 Previous treatments Diclofenac gel Fluocinolone solution Plaquenil (04/2019-07/2021 and 09/2021-12/2021) Methotrexate 20 mg weekly + folic acid daily (03/2021-11/2021) Current treatments Triamcinolone ointment Meloxicam 15 mg daily Gabapentin 100 mg BID Malignancy screening (dermatomyositis only) 05/30/19: PET scan, soft tissue density in the anterior uterine wall suggestive of a fibroid 02/11/20: PFT - normal 08/2020: mammogram 06/20/21: transvaginal US, fibroid uterus, otherwise normal Last eye exam (hydroxychloroquine) - HPI Brandi Ruiz is a 67 y.o. seen today in the Dermatology-Rheumatology clinic for continued management of dermatomyositis. Overall, her skin is worse with increased erythema and discomfort on the arms and scalp. Interim history: Had exudative macular degeneration, had injections in both eyes, and did not help. 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 Pain is 3/10, general achy muscles, b/l hips arms shoulder. Went to igniter assembler, having sob, thinks she has asthma, on Symbicort. Says it has been helping Stopped taking methotrexate due to shortness of breath. currenly taking and Gabapentin daily. meloxicam Last seen in this clinic: 03/21/22 Had covid back in March. Recovered ok. PCP gave her antiviral pills. No current symptoms. Has had covid booster. - Condition better/worse/stable: worse - Interval changes in health: Seen by Pulmonology on 04/12/22; with recommendations to start Symbicort (for mod persistent asthma), continue Claritin daily, and increase exercise for reconditioning and weight loss - Relevant medications: - Gabapentin 100 mg daily - Meloxicam 15 mg daily - Topicals using: triamcinolone take at [facility] - Medication sfx?: - Refills requested: - Last labs: 03/21/22 (COVID Ab test, repeat myositis panel and JANETH) - Specific concerns today: - patient has been able to do more than previous since starting the inhaler. - recently went to a specialist for her muscles but they are pretty sore Medications: Reviewed in eD-H Allergies: Reviewed in eD-H PMH: Patient Active Problem List Diagnosis Code ??? Anemia D64.9 ??? Hypothyroidism E03.9 ??? Anxiety F41.9 ??? SVT (supraventricular tachycardia) I47.1 ??? Hypothyroid E03.9 ??? History of basal cell carcinoma Z85.828 ??? History of bilateral knee replacement Z96.653 ??? Mild intermittent asthma, uncomplicated J45.20 ??? 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 PAF (paroxysmal atrial fibrillation) I48.0 ??? Status post placement of implantable loop recorder Z95.818 ROS: General: Feeling well Skin: Denies other skin complaints Exam: General: NAD, pleasant, cooperative Skin Examination: A focused skin examination of the bilateral extremities, significant for??the following: Assessment/Plan: A. Dermatomyositis, currently flaring (worsening skin involvement) now off Plaquenil and MTX -Central facial erythema and increased patchy erythema on the bilateral upper arms. Minor erythema on the scalp. Dropout and dilation on the left second and third finger, some cuticular erythema but otherwise normal nailfold capillaries. (Figure 1-2). - Discussed treatment options at this time, including Cellcept or a return to Plaquenil. She is understandably reluctant to restart plaquenil due to the potential ocular side effects given recent macular degeneration. - Start Rx fluocinolone (Synalar) 0.01% solution:??Apply topically to scalp/ears 1-2x/day for up to 2 weeks when flaring; then use 2-3x/week for maintenance. May apply at night and wash out in morning.?? - Start Rx triamcinolone cream - Start Rx Cellcept 500 mg twice a day in a month have labs done, if labs are normal increase to 1000 mg twice a day. -Labs: CBC, CMP external labs at [facility]. Labs faxed 06/13/22 Figure 1 Figure 2 Photo(s) taken and charted with patient's verbal consent. 35 minutes spent in chart review, visit, interdisciplinary discussion with Dr. Herron, coordination of care, and documentation. Follow Up: RTC in 4 months in: [x] Dermatology-Rheumatology clinic [] Dr. Burroughs dermatology clinic [] Dr. Herron rheumatology clinic in [place] [] Reminder placed in system [] Appointment scheduled before exiting Scribe attestation: Summer Richter and Nicci Nava LPN have performed the documentation for this encounter in the presence of and acting as scribes for AMBREEN BURROUGHS MD. I performed the above scribed service and agree with the accuracy of the documentation in this encounter. Ambreen Burroughs MD Casino Cashier of Dermatology Department of Dermatology [facility] cc: Samantah Michelle MD documented in this encounter Plan of Treatment Upcoming Encounters Date Type Specialty Care Team Description 09/26/2022 Office Visit Dermatology Ambreen Burroughs MD [facility] DR SHAYY CASTILLO-DERMAT [place] [address] ( rk) 10/02/2022 Office Visit Pulmonology Laney Calhoun M D [facility] Pulmonary [place] [address] (Wo rk) 11/07/2022 Office Visit Ophthalmology Gifty Bernal MD [facility] [address] [place] [address] ( rk) Scheduled Orders Name Type Priority Associated Diagnoses Order S chedule CBC (with Diff) Lab Routine High risk medication Expe cted: 06/13/2022, use Expires: 2021 Comprehensive metabolic Lab Routine High risk medicat ion Expected: 06/13/2022, panel (non-fasting) use Expires: 08/14/2022 documented as of this encounter Visit Diagnoses Diagnosis High risk medication use Encounter for long-term (current) use of other medications Dermatomyositis documented in this encounter Care Teams Field Human Resources Manager Relationship Specialty Start Date End Date Samantha Michelle MD PCP - General 09/14/11 [address] [place] [address] documented as of this encounter
--- OUTSIDE RECORDS SUMMARY | 2022-09-15 01:24 | XMS_ITS | Encounter Summary ---
:1955 Author Organization [facility] [place] [address] Care Team Providers Name Role Phone Samantha Michelle MD Primary Care Provider Reason for Referral Diagnostic Test (Routine) - New Request Specialty Diagnoses / Procedures Referred By Contact Refer red To Contact Cardiology Diagnoses Palpitations Larry Cedillo PA [facility] Non-Inv Card Lab Procedures ILR Placement [facility] [place] [address] [place] [address] Referral ID Status Reason Start Expiration Visits Visits Date Date Requested Authorized [id number] New Request Specialty 01/26/2022 01/26/2023 1 1 Service Requested Reason for Visit Diagnostic Test (Routine) - New Request Specialty Diagnoses / Procedures Referred By Contact Refer red To Contact Cardiology Diagnoses Palpitations Larry Cedillo PA [facility] Non-Inv Card Lab Procedures ILR Placement [facility] [place] [address] [place] [address] Referral ID Status Reason Start Expiration Visits Visits Date Date Requested Authorized [id number] New Request Specialty 01/26/2022 01/26/2023 1 1 Service Requested Encounter Details Date Type Department Care Team Description 02/07/2022 Hospital Encounter Non-Invasive Cardiology Carlos Alberto Benton MD Palpitations Lab [place], [place] [address] [place] [address] [phone] Social History Tobacco Use Types Packs/Day Years [...] Sign Reading Time Taken Comments Blood Pressure 154/83 02/07/2022 9:43 AM EDT Pulse 84 02/07/2022 9:43 AM EDT Temperature - - Respiratory Rate 16 02/07/2022 9:22 AM EDT Oxygen Saturation 98% 02/07/2022 9:43 AM EDT Inhaled Oxygen Concentration - - Weight - - Height - - Body Mass Index - - documented in this encounter Discharge Instructions Patient InstructionsLinda Tyler PA - 02/07/2022 9:49 AM EDT Implantable Loop Recorder Implant - You may use ice packs over the incision. Make sure to use a cloth spreader screen printing (such as a towel) in between the ice pack and the bare skin and that it stays DRY. WOUND CARE FOR YOUR INCISION: Your wound will usually heal in 7-10 days. Your wound may be tender, it may appear slightly red and bumpy and there may be dry, crusty scabbing. These are all normal. How to Care for your Incision: - Either you or someone with you needs to look at the wound every day. - Report any signs of infection immediately: Drainage Swelling Warmth Increased pain Fevers/chills - Call if you are concerned about infection or the edges of the wound separate - A needle should not be put into the wound area because this can damage the device. You may need to remind your healthcare provider of this concern - Do not scratch or rub the wound - Do not apply creams, lotions, or ointments to the incision until is completely healed. - You may cover the wound with gauze if it rubs on clothing and causes discomfort - Protect your wound from injury until the skin has had sufficient time to heal - Do not shower for 48 hours after implant - While in the shower, turn your back to the water nozzle so you avoid direct water pressure on the wound. Continue this for 7-10 days. - After 48 hours, you may wash the wound gently with soap and water (unless there is DermaBond on the incision - see below) - Do not submerge the incision (bathtubs, hot tubs, or swimming) for at least two weeks Your incision has been covered with a Mepilex dressing. - This dressing will stay on for 7 days. - Please remove the dressing on: Monday, February 14, 2022 - If the edges pull up substantially or fluid gets underneath the Mepilex dressing, remove it sooner - Once removed, you may notice some grayish discoloration. This is normal. Your incision has been closed with: Dermabond - This is a sterile, liquid skin adhesive that holds wound edges together. The film will usually remain in place for a few weeks, then naturally sloughs (falls) off your skin. - Do not scratch, rub, or pick at the Dermabond adhesive film. This may loosen the film before your wound is healed. - Protect the wound from prolonged exposure to sunlight or tanning lamps while the film is in place - You may occasionally and briefly wet your wound in the shower or bath. Do not soak or scrub your wound, do not swim, and avoid periods of heavy perspiration until the Dermabond adhesive has naturallyfallen off. After showering or bathing, gently blot your wound dry with a soft towel Your incision has been closed with: SteriStrips - These are thin adhesive strips placed over your incision to help it heal. - Leave them in place until they fall off (approximately 10-14 days) - Do not scratch, rub, or pick at them. This may pull at your incision before it is completely healed, which can increase the risk of infection. CALL IMMEDIATELY: If you develop chest pain, shortness of breath, bleeding, discharge from the incision, opening of the incision and/or fever/temperature >100 degrees F. The office scheduling phone number is [phone]. documented in this encounter Medications at Time of Discharge Medication Sig Dispensed Refills Start Date End Date hydrocortisone 2.5 % Mix equal amounts 30 g 3 01/26/20 22 CreamIndications: Candidal of both creams and intertrigo [...] % 0 2 07/11/2022 (0.1 mg/gram) Cream meloxicam (MOBIC) 15 mg Take 1 tablet by 30 tablet 12 202002/17/2022 Tablet mouth daily. documented as of this encounter Progress Notes Linda Tyler PA - 02/07/2022 9:00 AM EDT Electrophysiology ILR Implant H&P Patient: Brandi Ruiz : 1955 Subjective: HPI: 66 yo F with past medical history of SVT, dermatomyositis, GINO on CPAP, and palpitations, followed by Larry Cedillo PA-C and Dr. Ayesha Jernigan, who presents today for ILR implant. Ms. Ruiz has experienced SVT for many years, which has been responsive to vagal maneuvers, and once with verapamil in an ED. However, she has had increasing episodes of irregular palpitations associated with lightheadedness. Denies shyanne syncope. A Zio patch demonstrated 2 brief episodes of SVT but atrial fibrillation has not been identified. Given the high suspicion for this, Ms. Ruiz and Larry Cedillo PA-C have decidedto pursue halfway monitoring. DERRICK HAND at [facility]. From [place], lived in [place] for many years. Interval ROS: Patient denies cough, fever, N/V/D, or syncope. Medications: Current Outpatient Medications Medication Sig Note Dispense Refill ??? hydrocortisone 2.5 % Cream Mix equal [...] 5-7 days off and repeat as needed 01/18/2022: Pt takes PRN 454 g 1 ??? metHOTREXate 2.5 mg Tablet Take 8 tablets (20 mg) by mouth once a week. Take 4 tablets in the morning and 4 tablets in the evening, once weekly. (Patient not taking: No sig reported) 32 tablet 3 ??? vit A/vit C/vit E/zinc/copper (PRESERVISION AREDS ORAL) Take 1 capsule by mouth 2 times daily. ??? hydrOXYchloroQUINE (Plaquenil) 200 mg Tablet Take 1 tablet by mouth 2 times daily. Indications: dermatomyositis (Patient not taking: No sig reported) 60 tablet 3 ??? folic acid (Folvite) 1 mg Tablet Take 1 tablet by mouth daily. (Patient not taking: No sig reported) 90 tablet 3 ??? meloxicam (MOBIC) 15 mg Tablet Take 1 tablet by mouth daily. (Patient not taking: Reported on 01/26/2022) 30 tablet 12 ??? fluticasone furoate-vilanteroL (Breo Ellipta) 200-25 mcg/dose Disk with Device Inhale 1 puff into the lungs daily. (Patient taking differently: Inhale 1 puff into the lungs daily as needed.) 1 each5 ??? polyethylene glycol (MIRALAX) 17 gram Powder in Packet Take 17 g by mouth as needed. ??? ALPRAZolam (XANAX) 0.25 mg Tablet Take 0.25 mg by mouth as needed. 11/10/2019: prn 1 ??? levothyroxine (SYNTHROID) 125 mcg Tablet [...] mg by mouth every morning (before breakfast). Allergies Allergies Allergen Reactions ??? Ceclor [Cefaclor] Hives ??? Pcn [Penicillins] Anaphylaxis ??? Phenergan [Promethazine] Anaphylaxis ??? Preservative Anaphylaxis Sulfites ??? Sulfite ??? Vancomycin Hives ??? Definity [Perflutren Lipid Microspheres] Definity caused back pain and headache during stress test Objective: Vitals: Vitals: 02/07/22 0856 BP: 153/74 BP Location (NBP): Left arm Patient Position: Sitting BP Cuff Sizes: Adult (25-34 cm) Pulse: 85 Resp: 16 SpO2: 98% Physical Exam: General- No acute distress, laying comfortably on exam table Skin- Warm and dry, no rashes present Cardiovascular- S1/S2 regular rate and regular rhythm. Lungs- Clear to auscultation bilaterally in the anterior distribution Neuro- A&Ox3 Assessment and Plan: 66 y.o. with medical history significant for SVT, dermatomyositis, GINO on CPAP, and palpitations, who presents for ILR implant. The risks of, benefits of, and alternatives to ILR implant have been presented. The procedure for ILR implant has been discussed. The patient's questions have been answered. Written consent has been obtained. No contraindication to planned ILR implant today. Plan: 1. Proceed with ILR implant 2. Follow-up with Larry Cedillo PA-C pending results of remote monitoring I appreciate the opportunity to be involved with Ms. Ruiz's care. Please do not hesitate to contact EP with any further questions (pager [phone]). LINH Jones 9:17 AM 02/07/22 documented in this encounter Procedure Notes Linda Tyler PA - 02/07/2022 9:59 AM EDTAssociated Order(s): IMPLANTABLE LOOP RECORDER PLACEMENT Procedure(s): IMPLANTABLE LOOP RECORDER PLACEMENT Pre-Procedure Diagnose(s): Palpitations Post-Procedure Diagnose(s): Palpitations Implantable Loop Recorder (ILR) Implantation Indication: Palpitations, suspected AF Operators: KEVIN Hampton MD Procedure: Informed consent was obtained prior to the procedure. The left parasternal area was prepped and draped in the usual sterile fashion. Lidocaine HCl 1% was instilled for local anesthesia. Supplied incision tool was then used and a subcutaneous pocket was formed using blunt dissection. The ILR ([employer], Model# M301, Serial# [id number]) was implanted using the supplied injector tool, diagonal to the left upper sternal border at the fourth intercostal interspace. The wound was closed with medical adhesive (Dermabond) was applied to the incision followed by a Steri-strip. The incision was covered by a Mepilex dressing. Final Programming: VT detection: 170 bpm, 5 seconds Asystole: 3 seconds Bradycardia: 2000 ms / 30 bpm for 3 seconds Sensitivity: 0.037 mV R wave: 0.25mV Detection enhancements: AF enabled Incision: 9:40 Estimated blood loss: < 5 cc Fluoroscopy: none The patient tolerated the procedure well. Dr. Abrams was available for all fajardo portions of the procedure. documented in this encounter Plan of Treatment Upcoming Encounters Date Type Specialty Care Team Description 09/26/2022 Office Visit Dermatology Ambreen Burroughs MD [facility] DR SHAYY CASTILLO[place]DERMAT [place], [place] [address] (Wo rk) 10/02/2022 Office Visit Pulmonology [place], Jerry Rizzo [facility] Pulmonary Medic[facility] [place], [place] [address] (Wo rk) 11/07/2022 Office Visit Ophthalmology Gifty Bernal MD [facility] [place], [place] [address] (Wo rk) documented as of this encounter Procedures Procedure Name Priority Date/Time Associated Diagnosis Comme nts IMPLANTABLE LOOP Routine 02/07/2022 9:59 AM Palpitations Resul ts for this RECORDER PLACEMENT EDT procedure are in the results section. documented in this encounter Results IMPLANTABLE LOOP RECORDER PLACEMENT (02/07/2022 9:59 AM EDT) Anatomical Region Laterality Modality Other Specimen (Source) Anatomical Location Collection Method / Collectio n Time Received Time / Laterality Volume Narrative 02/07/2022 9:59 AM EDT Linda Tyler PA ? 02/07/2022 10:02 AM Implantable Loop Recorder (ILR) Implanta tion Indication: ??Palpitations, suspected AF Operators: ??KEVIN Hampton MD Procedure: ??Informed consent was obtain ed prior to the procedure. The left parasternal area was prepped an d draped in the usual sterile fashion. ??Lidocaine HCl 1% was instilled for local anesthesia. ?? Supplied incision tool was then used and a subcutaneous pocket was formed using blunt dissection. ??The ILR ([employer], Model# M301, Serial# [id number]) was implant ed using the supplied injector tool, diagonal to the left uppe r sternal border at the fourth intercostal interspace. The wound was closed with medical adhesive (Dermabond) was applied to the incision followed by a Steri-strip. The incision was covered by a Mepilex dressing. Final Programming: VT detection: 170 bpm, 5 seconds Asystole: ??3 seconds Bradycardia: 2000 ms / 30 bpm for 3 seco nds Sensitivity: 0.037 mV R wave: ??0.25mV Detection enhancements: AF enabled Incision: 9:40 Estimated blood loss: < 5 cc Fluoroscopy: none The patient tolerated the procedure well . Dr. Abrams was available for all fajardo po rtions of the procedure. Procedure Note Linda Tyler PA - 02/07/2022 9:59 AM EDT Implantable Loop Recorder (ILR) Implanta tion Indication: Palpitations, suspected AF Operators: KEVIN Hampton MD Procedure: Informed consent was obtained prior to the procedure. The left parasternal area was prepped and draped in the usual sterile fashion. Lidocaine HCl 1% was instilled for local anesthesia. Supplied incision tool was then used and a subcutaneous pocket was formed using blunt dissection. The ILR ([employer], Model# M301, Serial# [id number]) was implanted using the supplied injector tool, diagonal to the left upper sternal border at the fourth intercostal interspace. The wound was closed with medical adhesive (Dermabond) was applied to the incision followed by a Steri-strip. The incision was covered by a Mepilex dressing. Final Programming: VT detection: 170 bpm, 5 seconds Asystole: 3 seconds Bradycardia: 2000 ms / 30 bpm for 3 seco nds Sensitivity: 0.037 mV R wave: 0.25mV Detection enhancements: AF enabled Incision: 9:40 Estimated blood loss: < 5 cc Fluoroscopy: none The patient tolerated the procedure well . Dr. Abrams was available for all fajardo po rtions of the procedure. Carlos Alberto Benton MD CARDIAC SERVICES ORDERABLES documented in this encounter Visit Diagnoses Diagnosis Palpitations documented in this encounter Administered Medications Inactive Administered Medications - up to 3 most recent administrations Medication Order MAR Action Action Date Dose Rate Site lidocaine (Xylocaine) 1% (10 Given 02/07/2022 10:00 AM EDT 50 mg mg/mL) injection 50 mg 50 mg (5 mL), Subcutaneous, ONCE, 1 dose, On Sun02/07/22 at 1000, Routine documented in this encounter Care Teams Advisory Application Developer Relationship Specialty Start Date End Date Samantha Michelle MD PCP - General 09/14/11 [address] [place] [address] documented as of this encounter
--- OUTSIDE RECORDS SUMMARY | 2022-09-15 01:24 | XMS_ITS | Encounter Summary ---
:1955 Author Organization [facility] [place] [address] Care Team Providers Name Role Phone Samantha Michelle MD Primary Care Provider Reason for Referral Diagnostic Test (Routine) - Closed Specialty Diagnoses / Procedures Referred By Contact Refer red To Contact Diagnoses PAF (paroxysmal atrial fibrillation) Encounter for screening for lipid disorder Ayesha Adan MD [facility] Non-Inv Card Lab Procedures Echocardiogram Stress (Treadmill) [facility] [place] [address] [place] [address] Fax: Referral ID Status Reason Start Date Expiration Date Visits V isits Requested Authorized [id number] Closed Specialty 12/05/2021 12/05/2022 1 1 Service Requested Reason for Visit Diagnostic Test (Routine) - Closed Specialty Diagnoses / Procedures Referred By Contact Refer red To Contact Diagnoses PAF (paroxysmal atrial fibrillation) Encounter for screening for lipid disorder Ayesha Adan MD [facility] Non-Inv Card Lab Procedures Echocardiogram Stress (Treadmill) [facility] [place] [address] [place] [address] Fax: Referral ID Status Reason Start Date Expiration Date Visits V isits Requested Authorized [id number] Closed Specialty 12/05/2021 12/05/2022 1 1 Service Requested Encounter Details Date Type Department Care Team Description 01/23/2022 Hospital Encounter Non-Invasive Ayesha Adan PAF (pa roxysmal atrial fibrillation); Cardiology Lab Bessy Ellison MD Encounter for screening for lipid disord er [facility] [place], [place] [address] [address] [place], [place] [phone] (Work) [phone] Social History Tobacco Use Types Packs/Day Years [...] Sig Dispensed Refills Start Date End Date gabapentin (Neurontin) 200 mg. 0 07/12/2021 100 mg Capsule ondansetron (Zofran) 4 mg as needed. 0 09/23/2021 Tablet triamcinolone (Kenalog) Apply to affected 454 g 1 08/03 0.1 % areas on arms twice OintmentIndications: daily for 10-14 days. Dermatomyositis Take 5-7 days off and repeat as needed polyethylene glycol Take 17 g by mouth as 0 (MIRALAX) 17 gram Powder needed. in Packet ALPRAZolam (XANAX) 0.25 Take 0.25 mg by mouth 1 0 05/13/2019 mg Tablet as needed. levothyroxine (SYNTHROID) daily. 4 02/18/2019 [...] every morning (before breakfast). estradioL (ESTRACE) 0.01 0 01/13/2022 07/11/2022 % (0.1 mg/gram) Cream metHOTREXate 2.5 mg Take 8 tablets (20 32 tablet 3 06/30/20 21 02/07/2022 TabletIndications: mg) by mouth once a Dermatomyositis week. Take 4 tablets in the morning and 4 tablets in the evening, once weekly. vit A/vit C/vit Take 1 capsule by 0 E/zinc/copper mouth 2 times daily. (PRESERVISION AREDS ORAL) hydrOXYchloroQUINE Take 1 tablet by 60 tablet 3 05/19/2021 02/07/2022 (Plaquenil) 200 mg mouth 2 times daily. TabletIndications: Indications: dermatomyositis dermatomyositis folic acid (Folvite) 1 mg Take 1 tablet by 90 tablet 3 04/202102/07/2022 TabletIndications: mouth daily. Dermatomyositis meloxicam (MOBIC) 15 mg Take 1 tablet by 30 tablet 12 202002/17/2022 Tablet mouth daily. fluticasone Inhale 1 puff into 1 each 5 02/11/202002/07 furoate-vilanteroL (Breo the lungs daily. Ellipta) 200-25 mcg/dose Disk with Device documented as of this encounter Plan of Treatment Upcoming Encounters Date Type Specialty Care Team Description 09/26/2022 Office Visit Dermatology Ambreen Burroughs MD [facility] [address] [place], [place] [address] (Wo rk) 10/02/2022 Office Visit Pulmonology Laney Calhoun [facility] Pulmonary Medicguido thornton [place], [place] [address] (Wo rk) 11/07/2022 Office Visit Ophthalmology Gifty Bernal MD [facility] [address] [place], [place] [address] (Wo rk) documented as of this encounter Procedures Procedure Name Priority Date/Time Associated Comments Diagnosis STRESS ECHOCARDIOGRAM W Routine 01/23/2022 10:15 PAF (paroxysm al Results for this CONTRAST LMTD SPEC AM EST atrial procedure are in DOPP,COLOR DOPP fibrillation) the results Encounter for section. screening for lipid disorder documented in this encounter Results STRESS ECHOCARDIOGRAM W CONTRAST LMTD SPEC DOPP,COLOR DOPP (01/23/2022 10:15 AM EST) Anatomical Region Laterality Modality Other Specimen (Source) Anatomical Collection Method Collection Time Re ceived Time Location / / Volume Laterality 01/23/2022 9:11 AM EST Narrative 01/23/2022 11:49 AM EST ? Version 2 [facility] ?[address] ? [place] [address] ?Voice: ?Fax: ? Exerci se Stress Echocardiogram Report Name: MILANA RUIZ ? Study Date: 01/23/2022 09:11 AM ??BP: 172/98 mmHg ? [facility]0000[facility] 1955 ? Height: 175 cm ? Account: [id number] Age: 66 yrs ? Weight: 145 kg Gender: Female ?BSA: 2.5 m2 Ordering Physician: LOCO^AYESHA^Terra Referring Physician: AYESHA ADAN Performed By: Ru Awan Reason For Study: Atrial fibrillation Interpreting Fellow: Lisha Yen. Interpretation Summary 1. IMPRESSION: The patient developed SVT during early recovery with a peak heart rate of 184 bpm (probable AF with RVR). There was spontaneous resolution of SVT after 1 minute of recovery. The patient' s exercise capacity was below average for age and sex (5 METs). There was no echoc ardiographic or electrocardiographic evidence of ischemia. 2. REST: Resting ECG showed normal sinus rhythm without ST abnormality. Resting echo showed normal global and segmental left ventricular function with an ejection fraction of 68% by Leger's biplane. Th e left atrium was severely dilated. Please see below for additional findings. 3. STRESS: The patient exercised accordi ng to the Salbador protocol for 2:16 min, achieving a workload of 5 METs and a pea k heart rate of 142 bpm (108% of MPHR). The peak heart rate in early recovery wh en the patient developed SVT was 184 bpm. Patient did not experience chest discomf ort. Exercise was stopped due to dyspnea. There were no diagnostic ST changes duri ng exercise or recovery. The left ventricular ejection fraction is hyperdy namic at peak exercise. There was normal augmentation of all left ventricular wal l segments post exercise. Of note, patient was given IV echo contrast (Definity) an d had an adverse reaction with back pain that self-resolved. Stress Results ? Protocol: ??Salbador ?Maximum Predicted HR: ?? 155 bpm ? Target HR: 132 bpm ?% Maximum Predicted HR: 119 % ?S tage ??DurationHeart Rate ??BP ? (mm:ss) ?? (bpm) ? Rest ?0:00 ?92 ?172/98 ? Peak ?2:17 ? 142 ?206/92 ? Rec overy ?88 ?142/84 ?Stress Durati on: ?? 2:16 mm:ss * ?Maximum Stres s HR: 184 bpm * ? METS: 5 Procedure Type of Stress Test: Salbador protocol. Exe rcise Time: 2:16 min. Resting HR: 92 beats per minute. Max HR: 184 beats per minute . Patient reached 118 % of max predicted heart rate. The patient achieved 5 METs. The patient reported dyspnea. The patient's blood pressure was normal with exercise. The study was terminated because of dyspnea. Left Ventricle Left ventricle is of normal size. Wall t hickness is normal. Left ventricular systolic function is normal. The left ve ntricular ejection fraction is 68% by Leger's biplane. There are no segmenta l wall motion abnormalities. Right Ventricle The right ventricle is of normal size. R ight ventricular systolic function is normal. Left Atrium The left atrium is severely dilated. Right Atrium The right atrium is mildly dilated. Aortic Valve The aortic valve is structurally normal. The aortic valve is tricuspid. There is no aortic stenosis. There is no aortic r egurgitation. Mitral Valve The mitral valve is structurally and fun ctionally normal. There is trace mitral regurgitation. Tricuspid Valve The tricuspid valve is structurally norm al. There is trace tricuspid regurgitation. Great Vessels The aortic root at the level of the sinu ses of Valsalva is mildly dilated. The diameter at the level of the sinuses of Valsalva is 3.8 cm. Rest ECG/Medications The baseline ECG displays normal sinus r hythm. The patient's oxygen saturation at baseline was 96%. The baseline rhythm is IVCD. Stress ECG There was no new ST segment depression w ith stress. The patient's oxygen saturation during stress was 94%. Arrhyt hmia induced during stress: PAC. Stress Echo The left ventricular ejection fraction i s hyperdynamic at peak exercise. There was normal augmentation of all left ventricu lar wall segments post exercise. Recovery Patient demonstrated SVT arrhythmia. The ECG in recovery demonstrated: ventricular couplets. MMode/2D Measurements & Calculations Ao root diam: 3.8 cm ?asc Aorta D candi: 3.3 cm ? EDV(MOD-sp4): 79.2 ml ? SV(MOD-sp4): 50.8 ml ?TAPSE_phl: 2.8 cm ? RA ESA_phl: 21.5 cm2 ? LA volume: 118.4 ml ? LV Biplane EF: 68.2 % Doppler Measurements & Calculations MV E max pedrito: ? MV dec s bety: ? Dimensionless index Aov: 116.8 cm/sec ?569.9 c m/sec2 ? 0.77 MV A max pedrito: ? MV dec t elan: 0.20 sec 113.3 cm/sec MV E/A: 1.0 ? E/ e' (lat): 9.5 ?E/e' (med ): 15.0 I ?WMSI = 1.00 ? % Normal = 1 00 II ?WMSI = 1.00 ? % Normal = 100 ?Segments ??Size X - Cannot ?? 1 - Normal ?? 2 - ? 3 - Akinetic 4 - ?1-2 ? small Interpret ? Hypoki netic ?Dyskinetic ?? 3-5 ? moderate 5 - ? 6-14 ?large Aneurysmal ?15-16 ?? diffuse Procedure Note Reji Smith MD - 01/24/2022Forma tting of this note might be different from the original. Version 2 [facility] [address] [place] [address] Voice: Fax: Exercise Stress Echocardiogram Report Name: MILANA RUIZ Study Date: 2021 09:11 AM BP: 172/98 mmHg Patient Location: 4A^000 0^^N [facility]: 90 : 1955 Height: 175 cm Account: [id number] Age: 66 yrs Weight: 145 kg Gender: Female BSA: 2.5 m2 Ordering Physician: LOCO^TRAVIS Referring Physician: AYESHA ADAN Performed By: Ru Awan Reason For Study: Atrial fibrillation Interpreting Fellow: Lisha Yen. Interpretation Summary 1. IMPRESSION: The patient developed SVT during early recovery with a peak heart rate of 184 bpm (probable AF with RVR). There was spontaneous resolution of SVT after 1 minute of recovery. The patient' s exercise capacity was below average for age and sex (5 METs). There was no echoc ardiographic or electrocardiographic evidence of ischemia. 2. REST: Resting ECG showed normal sinus rhythm without ST abnormality. Resting echo showed normal global and segmental left ventricular function with an ejection fraction of 68% by Leger's biplane. Th e left atrium was severely dilated. Please see below for additional findings. 3. STRESS: The patient exercised accordi ng to the Salbador protocol for 2:16 min, achieving a workload of 5 METs and a pea k heart rate of 142 bpm (108% of MPHR). The peak heart rate in early recovery wh en the patient developed SVT was 184 bpm. Patient did not experience chest discomf ort. Exercise was stopped due to dyspnea. There were no diagnostic ST changes duri ng exercise or recovery. The left ventricular ejection fraction is hyperdy namic at peak exercise. There was normal augmentation of all left ventricular wal l segments post exercise. Of note, patient was given IV echo contrast (Definity) an d had an adverse reaction with back pain that self-resolved. Stress Results Protocol: Salbador Maximum Predicted HR: 1 55 bpm Target HR: 132 bpm % Maximum Predicted HR: 119 % Stage DurationHeart Rate BP (mm:ss) (bpm) Rest 0:00 92 172/98 Peak 2:17 142 206/92 Recovery 88 142/84 Stress Duration: 2:16 mm:ss * Maximum Stress HR: 184 bpm * METS: 5 Procedure Type of Stress Test: Salbador protocol. Exe rcise Time: 2:16 min. Resting HR: 92 beats per minute. Max HR: 184 beats per minute . Patient reached 118 % of max predicted heart rate. The patient achieved 5 METs. The patient reported dyspnea. The patient's blood pressure was normal with exercise. The study was terminated because of dyspnea. Left Ventricle Left ventricle is of normal size. Wall t hickness is normal. Left ventricular systolic function is normal. The left ve ntricular ejection fraction is 68% by Leger's biplane. There are no segmenta l wall motion abnormalities. Right Ventricle The right ventricle is of normal size. R ight ventricular systolic function is normal. Left Atrium The left atrium is severely dilated. Right Atrium The right atrium is mildly dilated. Aortic Valve The aortic valve is structurally normal. The aortic valve is tricuspid. There is no aortic stenosis. There is no aortic r egurgitation. Mitral Valve The mitral valve is structurally and fun ctionally normal. There is trace mitral regurgitation. Tricuspid Valve The tricuspid valve is structurally norm al. There is trace tricuspid regurgitation. Great Vessels The aortic root at the level of the sinu ses of Valsalva is mildly dilated. The diameter at the level of the sinuses of Valsalva is 3.8 cm. Rest ECG/Medications The baseline ECG displays normal sinus r hythm. The patient's oxygen saturation at baseline was 96%. The baseline rhythm is IVCD. Stress ECG There was no new ST segment depression w ith stress. The patient's oxygen saturation during stress was 94%. Arrhyt hmia induced during stress: PAC. Stress Echo The left ventricular ejection fraction i s hyperdynamic at peak exercise. There was normal augmentation of all left ventricu lar wall segments post exercise. Recovery Patient demonstrated SVT arrhythmia. The ECG in recovery demonstrated: ventricular couplets. MMode/2D Measurements & Calculations Ao root diam: 3.8 cm asc Aorta Diam: 3.3 cm EDV(MOD-sp4): 79.2 ml SV(MOD-sp4): 50.8 ml TAPSE_phl: 2.8 cm RA ESA_phl: 21.5 cm2 LA volume: 118.4 ml LV Biplane EF: 68.2 % Doppler Measurements & Calculations MV E max pedrito: MV dec slope: Dimensionles s index Aov: 116.8 cm/sec 569.9 cm/sec2 0.77 MV A max pedrito: MV dec time: 0.20 sec 113.3 cm/sec MV E/A: 1.0 E/ e' (lat): 9.5 E/e' (med): 15.0 I WMSI = 1.00 % Normal = 100 II WMSI = 1.00 % Normal = 100 Segments Size X - Cannot 1 - Normal 2 - 3 - Akinetic 4 - 1-2 small Interpret Hypokinetic Dyskinetic 3-5 mod erate -14 large Aneurysmal 15-16 diffuse Ayesha Adan MD ECHO ORDERABLES documented in this encounter Visit Diagnoses Diagnosis PAF (paroxysmal atrial fibrillation) Atrial fibrillation Encounter for screening for lipid disord er documented in this encounter Administered Medications Inactive Administered Medications - up to 3 most recent administrations Medication Order MAR Action Action Date Dose Rate Site perflutren lipid microspheres Given 01/23/2022 10:15 AM EST 0.5 mLs (Definity) injection 0.5 mL 0.5 mL, Intravenous, ONCE PRN, 1 dose, Starting on Sun01/23/22 at 1015, Until Sun01/23/22 at 1015, Other, for enhancement of sub-optimal echo images, Echo Lab (Intra-Procedure), Routine documented in this encounter Care Teams Architecture Professor Relationship Specialty Start Date End Date Samantha Michelle MD PCP - General 09/14/11 [address] [place] [address] documented as of this encounter
--- OUTSIDE RECORDS SUMMARY | 2022-09-15 01:24 | XMS_ITS | Encounter Summary ---
:1955 Author Organization [facility] [place] [address] Care Team Providers Name Role Phone Samantha Michelle MD Primary Care Provider Reason for Referral Consultation (Routine) - Closed Specialty Diagnoses / Referred By Referred To Cont act Procedures Contact Electrophysiology / Diagnoses PAF (paroxysmal atrial fibrillation) Encounter for screening for lipid disorder history of afib/SVT recent zio but St echo 01/23--> SVT/afib in recovery see note for complete details Ayesha Jernigan, [facility] 4a Cardiology MD [facility] [address] [place], [place] [phone] Phone: Phone: Referral ID Status Reason Start Date Expiration Date Visits V isits Requested Authorized [id number] Closed Consult, 01/23/2022 01/23/2023 1 1 Test & Treat Encounter Details Date Type Department Care Team Description 01/23/2022 Office Visit Cardiology at [facility] Ayesha Jernigan, PAF (paroxysmal atrial fibri llation); [facility] Encounter for screening for [place] [address] [place] [address] Social History Tobacco Use Types [...] Sign Reading Time Taken Comments Blood Pressure 138/66 01/23/2022 11:02 AM EST Pulse 85 01/23/2022 11:02 AM EST Temperature - - Respiratory Rate - - Oxygen Saturation 94% 01/23/2022 11:02 AM EST Inhaled Oxygen Concentration - - Weight 144.7 kg (319 lb) 01/23/2022 11:02 AM EST Height 175.3 cm (5' 9) 01/23/2022 11:02 AM EST Body Mass Index 47.11 01/23/2022 11:02 AM EST documented in this encounter Progress Notes Ayesha Jernigan MD - 01/23/2022 11:00 AM EST CARDIOLOGY OUTPATIENT CLINIC NOTE PRIMARY CARE PROVIDER: Samantha Michelle MD REFERRING PROVIDER: No ref. provider found Patient ID: Brandi Ruiz is a 66 y.o. female. HPI: 01/23/22 Last appointment 12/05/21 Past history of SVT and possible afib, dermatomyositis She had a stress echocardiogram today, she held her metoprolol dose (last dose was night of Jan 2125 mg Toprol). She was able to attain > 85% of predicted max HR. In recovery she had rapid narrow-complex tachycardia, this may be SVT but some sections show irregular heart rate and cannot fully r/o afib. She felt very short of breath, light-headed. She generally takes the low dose Toprol but still may have breakthrough episodes. The study showed normal LV systolic function and no significant valve abnormalities Of note, she endorses more dyspnea on exertion, even walking. She is not sure what may be causing this--cardiac or a reactive airway issue. 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 About five years ago she was found [...] daughter has returned home with grandson. Dogs ([place]izen [place] Star, two Stroz Friedberg). She has another daughters. She had normal [...] pain that self-resolved. 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 estradioL (ESTRACE) 0.01 % (0.1 mg/gram) Cream ??? gabapentin (Neurontin) 100 mg Capsule 200 mg. ??? ondansetron (Zofran) 4 mg Tablet as needed. ??? triamcinolone (Kenalog) 0.1 % Ointment Apply to affected areas on arms twice daily for 10-14 days. Take 5-7 days off and repeat as needed 454 g 1 ??? metHOTREXate 2.5 mg Tablet Take 8 tablets (20 mg) by mouth once a week. Take 4 tablets in the morning and 4 tablets in the evening, once weekly. (Patient not taking: Reported on 01/18/2022) 32 tablet 3 ??? vit A/vit C/vit E/zinc/copper (PRESERVISION AREDS ORAL) Take 1 capsule by mouth 2 times daily. ??? hydrOXYchloroQUINE (Plaquenil) 200 mg Tablet Take 1 tablet by mouth 2 times daily. Indications: dermatomyositis 60 tablet 3 ??? folic acid (Folvite) 1 mg Tablet Take 1 tablet by mouth daily. (Patient not taking: Reported on 01/18/2022) 90 tablet 3 ??? meloxicam (MOBIC) 15 mg Tablet Take 1 tablet by mouth daily. 30 tablet 12 ??? fluticasone furoate-vilanteroL (Breo [...] Types: Cigarettes Quit date: 02/07/1975 Years since quittin.9 ??? Smokeless tobacco: Never Used Vaping Use [...] the past 24 hrs: Pulse BP SpO2 01/23/22 1102 85 138/66 94 % No results found for this or any previous visit (from the past 72 hour(s)). Assessment and Plan: No problem-specific Assessment & Plan notes found for this encounter. Lipids ?? No recent panel, will see if this was done at outside facility and if not, order panel Blood pressure ?? At goal on current regimen Dyspnea on exertion ?? Unclear etiology, she has several risk factors for coronary artery disease ?? She had an negative stress echo 01/23/22 with normal resting LV function and valves unremarkable and no evidence of ischemia but was only able to complete 5 minutes of Salbador Protocol. Consider further testing to r/o ischemia ?? I do think it would be helpful to have pulmonary input to evaluate for possible non-cardiac issues. Palpitations, past SVT ?? Unclear if this is afib, SVT on ziopatch and strips from 01/23/22 stress echo ?? TSH has been normal, she is using CPAP, overall good blood pressure control ?? She had held the low dose of metoprolol (25 mg Toprol) for the stress test and we can consider that this episode was due to holding it, but I think that it is reasonable to have EP evaluation Lifestyle ?? She has a busy work and home schedule but I counseled on trying to fit in physical activity Time spent for this clinic appointment on the date of service includes: 1) [id number] counseling as noted above 2) reviewing past medical records, cardiac testing, results of laboratory testing 3) coordinating care with other physicians and allied health care providers Ayesha Jernigan MD, Aure, FACC, FNLA Attending Diaphragm Builder [facility] Preventive Cardiology Lipid Clinic Advanced Hypertension Clinic documented in this encounter Plan of Treatment Upcoming Encounters Date Type Specialty Care Team Description 09/26/2022 Office Visit Dermatology Ambreen Burroughs MD [facility] DR [address], [place] [address] ([facility]) 10/02/2022 Office Visit Pulmonology Laney Calhoun M [facility] Pulmonary Medicguido thornton [place], [place] [address] ( naif) 11/07/2022 Office Visit Ophthalmology Gifty Bernal MD [facility] [address] [place] [address] ( naif) Scheduled Referrals Name Type Priority Associated Order Schedule Diagnoses Referral to Cardiac Outpatient Routine PAF (paroxysmal Order ed: Electrophysiology Referral atrial 01/23/2022 fibrillation) Encounter for screening for lipid disorder documented as of this encounter Visit Diagnoses Diagnosis PAF (paroxysmal atrial fibrillation) Atrial fibrillation Encounter for screening for lipid disord er documented in this encounter Care Teams Tool And Die Maker Apprentice Relationship Specialty Start Date End Date Samantha Michelle MD PCP - General 09/14/11 [address] [place] [address] documented as of this encounter
--- OUTSIDE RECORDS SUMMARY | 2022-09-15 01:24 | XMS_ITS | Encounter Summary ---
:1955 Author Organization [facility] [place] [address] Care Team Providers Name Role Phone Samantha Michelle MD Primary Care Provider Reason for Visit Reason Onset Date Comments Labs Only 06/19/2022 IGE Encounter Details Date Type Department Care Team Description 06/19/2022 Telephone Pulmonology [place] [facility] Isid[place] Mc Only (IGE) [facility] [place] [address] RN [phone] Social History Tobacco Use Types Packs/Day Years Used Date Former Smoker Cigarettes 0.25 7 Quit: 02/07/19 76 Smokeless Tobacco: Never Used Alcohol Use Standard Drinks/Week Comments No 0 (1 standard drink = 0.6 oz pure alcoho l) Sex Assigned at Date Recorded Female 03/23/2021 8:16 AM EDT documented as of this encounter Miscellaneous Notes Telephone Encounter - Vivien Mc RN - 06/19/2022 11:15 AM EDT Faxed completed IGE order requisition, signed by Dr. Calhoun, to [facility] out patient lab. Attached to this was the following items: Patient Demographics This covered the following items: IGE Fax submission confirmation time stamped for 06/19/22 @ 1113. 4 pages with cover sheet. documented in this encounter Plan of Treatment Upcoming Encounters Date Type Specialty Care Team Description 09/26/2022 Office Visit Dermatology Ambreen Burroughs MD [facility] [address] [place], [place] [address] (Wo rk) 10/02/2022 Office Visit Pulmonology Laney Calhoun [facility] Pulmonary Medici [place], [place] [address] (Wo rk) 11/07/2022 Office Visit Ophthalmology Gifty Bernal MD [facility] [place], [place] [address] (Wo rk) documented as of this encounter Visit Diagnoses Not on filedocumented in this encounter Care Teams Veterinarian Laboratory Animal Care Relationship Specialty Start Date End Date Samantha Michelle MD PCP - General 09/14/11 [address] [place] [address] documented as of this encounter
--- OUTSIDE RECORDS SUMMARY | 2022-09-15 01:24 | XMS_ITS | Encounter Summary ---
:1955 Author Organization [facility] [place] [address] Care Team Providers Name Role Phone Samantha Michelle MD Primary Care Provider Reason for Visit Reason Comments Follow-up Dermatology-Rheumatology [facility] Encounter Details Date Type Department Care Team Description 08/01/2022 TH Visit Dermatology at Ambreen Burroughs (TeleHealth) Shayy Arguello MD dermatomyositis [address] [facility] [address] [facility] [phone] [place] [address] Social History Tobacco Use Types Packs/Day Years Used Date Former Smoker Cigarettes 0.25 7 Quit: 02/07/19 76 Smokeless Tobacco: Never Used Alcohol Use Standard Drinks/Week Comments No 0 (1 standard drink = 0.6 oz pure alcoho l) Sex Assigned at Date Recorded Female 03/23/2021 8:16 AM EDT documented as of this encounter Progress Notes Ambreen Burroughs MD - 08/01/2022 1:20 PM EDT Images from the original note were not included. DEPARTMENT OF DERMATOLOGY Dermatology-Rheumatology Specialty Clinic Provider: AMBREEN BURROUGHS MD Visit conducted in conjunction with Savi Herron MD of Rheumatology. Please see her same-day medical note Patient's preferred name Brandi Preferred contact method for results [x] Phone (Cell) [] MyD-H [] Letter Permission to leave detailed message Yes Permission to discuss care with No Relevant Diagnosis or DDx: Dermatomyositis Past Medical History Date, relevant details Antecedent history Relevant PMH Hypothyroidism, moderate persistent asthma, macular degeneration Biopsies 05/06/19:??Right upper arm, punch biopsy: Vacuolar [...] basement membrane associated with ectatic superficial vessels Discussion:??Significant inflammatory component or interface changes are not present. While dermatomyositis may share some of these findings, however, the present findings are not very specific or diagnostic. Relevant diagnostic labs JANETH: negative (03/21/22); negative (02/13/19), positive at 1:160 (12/11/18) ANCA: negative (02/13/19) Anti-CCP: wnl (02/13/19) C3 Complement: wnl (02/13/19) C4 Complement: wnl (02/13/19) CRP: elevated at 17.4 (most recently on 09/28/20) CK: wnl DsDNA: negative (02/13/19) PEE: negative (02/13/19) Myositis panel: weak positive anti-LORI-1 Ab (03/21/22, 02/13/19) RF: mildly elevated??at 17 (02/13/19) Imaging, additional workup/studies CT C/A/P??(05/19/19): ???Lesions in the liver ?? MRI of right lower extremity (06/02/19, 09/01/19, 06/20/21):??Negative for myositis, but did show a soft tissue mass, most suggestive of a cyst??- seen by Ortho 10/2019 ?? MRI of left shoulder (11/07/21): No soft tissue mass or abnormal signal. Diffuse slight decrease T1 signal of the marrow of right humerus likely represents conversion to hematopoietic marrow. Finding is nonspecific and can be seen in anemia. Consider clinical correlation if indicated. ?? CT chest wo contrast (03/07/22):??No CT evidence of fibrotic lung disease or other interstitial lung disease. ?? PFT (03/07/22): Normal spirometry. No diffusion impairment. No significant changes from last study on02/11/20. Previous treatments Plaquenil (04/2019-07/2021??and 09/2021-12/2021) Methotrexate 20 mg weekly + folic acid daily??(03/2021-11/2021) Clobetasol ointment Diclofenac gel Current treatments Hydroxychloroquine Meloxicam??15 mg daily Gabapentin 100 mg BID Triamcinolone cream/ointment Fluocinolone solution Care team members PCP: Samantha Michelle MD Signaler: Ayesha Jernigan MD Ophthalmologist: Sahil Bernal MD Outside Sales Advertising Executive: Laney Calhoun MD Malignancy screening (dermatomyositis only) 05/30/19: PET scan, soft tissue density in the anterior uterine wall suggestive of a fibroid 02/11/20: PFT - normal 08/2020: mammogram 06/20/21: transvaginal US, fibroid uterus, otherwise normal Last eye exam (hydroxychlorquine only) Family History Details Autoimmune diseases Social History 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 established patient seen today in the Dermatology-Rheumatology clinic for continued management of dermatomyositis. Last seen in this clinic: 06/13/22 - Condition better/worse/stable: - Fatigue and muscle aches are slightly worse than they were in May - Skin rash has progressed farther down the arms and now involves upper arm and forearms nearly to the wrists - Noticeable progression of symptoms off systemic treatment (MTX and Plaquenil d/c'd in December 2021) - Interval changes in health: - Started montelukast (Singular) for moderate persistent asthma, as per Pulmonology, in addition to Symbicort and levalbuterol inhalers - Relevant medications: - CellCept 500 mg BID - she filled this prescription but has not started - Gabapentin 100 mg daily - Meloxicam 15 mg daily - fluocinolone solution (scalp and ears) - triamcinolone cream (trunk and extremities) - Medication sfx?: Denies - Refills requested: Denies - Last labs: None yet; orders for CBC and CMP faxed to [facility] at last visit - Current symptoms and specific concerns today: - Eager to start treatment; agreeable to Cellcept though nervous about immunosuppression given her occupational exposures. Interested in option of Evusheld for COVID prophylaxis. - Up-to-date on COVID vaccinations (has received primary series plus one booster) but planning to get second booster when it is available with Omicron coverage. Questions whether she should avoid all vaccines or only live vaccines. - Scheduled to receive a dental implant on 08/14; would like to know whether this would impact timingof Cellcept initiation. Medications: Reviewed in eD-H Allergies: Reviewed in [...] implantable loop recorder Z95.818 ROS: General: Feeling well; +fatigue, +muscle aches Skin: Denies other skin complaints Skin Examination: TeleHealth examination: no exam due to the nature ofTeleHealth. Patient is aware that assessment maybe limited by the TeleHealth video resolution. Assessment/Plan: A. Amyopathic Dermatomyositis - Patient describes increased erythema on the bilateral upper arms andforearms. - Flaring (worsening skin involvement) off Plaquenil and MTX. - The extent to which her MSK symptoms and fatigue are secondary to DM is uncertain, but skin is clearly worsening and would also expect improvement in systemic symptoms if they are secondary to DM with treatment - Reviewed treatment options (IVIG, CellCept, rituximab) and importance of pursuing treatment to reduce systemic inflammation. - [place] decision to start Rx mycophenolate (Cellcept) 500 mg BID with plan to increase to 1000 mg BID based on lab results 4 weeks after initiation. - Discussed Evusheld (tixagevimab copackaged with cilgavimab) for pre-exposure COVID prophylaxis. - Plan: - Schedule to get the new COVID booster (recommended receiving the re-formulated Pfizer or Moderna when available) - Then 2 weeks after receiving COVID booster, start Cellcept. - Then 4 weeks after starting Cellcept, have labs (CBC, CMP) drawn. - Dr. Herron will order Evusheld; patient may receive this 2 weeks after COVID booster. - Instructed patient to avoid live vaccines. She may consider getting her annual flu shot at the same time as the COVID booster, if it is available. - Discussed that she may continue taking CellCept during and after her upcoming dental implant procedure unless otherwise instructed by her dental provider. - Labs: CBC, CMP 4 weeks after starting Cellcept (external orders faxed on 06/13/22). RTC: As scheduled on 09/26/22: [x] In-person visit [] TeleHealth visit [] Note routed to marketing secretary (Kamryn Mei) [] Recall placed in scheduling system [x] Appointment scheduled previously Scribe attestation: Arabella Peguero, NICOL has performed the documentation for this encounter in the presence of and acting as a scribe for AMBREEN BURROUGHS MD. I performed the above scribed service and agree with the accuracy of the documentation in this encounter. Reviewed and signed by: AMBREEN BURROUGHS MD Clinical Operations Specialist of Dermatology Dermatology [facility] cc: Samantha Michelle MD documented in this encounter Plan of Treatment Upcoming Encounters Date Type Specialty Care Team Description 09/26/2022 Office Visit Dermatology Ambreen Burroughs MD [facility] [address] [place], [place] [address] (Wo rk) 10/02/2022 Office Visit Pulmonology Laney Calhoun M [facility] Pulmonary Medici hillary [place], [place] [address] (Wo rk) 11/07/2022 Office Visit Ophthalmology Gifty Bernal MD [facility] [place] [address] (Wo rk) documented as of this encounter Visit Diagnoses Diagnosis Amyopathic dermatomyositis Dermatomyositis documented in this encounter Care Teams Ancillary Services Manager Therapy Relationship Specialty Start Date End Date Samantha Michelle MD PCP - General 09/14/11 [address] [place] [address] documented as of this encounter
--- OUTSIDE RECORDS SUMMARY | 2022-09-15 01:24 | XMS_ITS | Encounter Summary ---
:1955 Author Organization [place] [address] Care Team Providers Name Role Phone Samantha Michelle MD Primary Care Provider Encounter Details Date Type Department Care Team Description 01/24/2022 Office Visit Dermatology at [facility] Savi Herron MD Dermatomyositis; Road [address] [place] [address] RD Shortness of breath on exertion; [address] [place] [address] [place], [place] [phone] [address] Social History Tobacco Use Types Packs/Day Years Used Date Former Smoker Cigarettes 0.25 7 Quit: 02/07/19 76 Smokeless Tobacco: Never Used Alcohol Use Standard Drinks/Week Comments No 0 (1 standard drink = 0.6 oz pure alcoho l) Sex Assigned at Date Recorded Female 03/23/2021 8:16 AM EDT documented as of this encounter Progress Notes Savi Herron MD - 01/24/2022 11:30 AM EST Brandi Ruiz is seen in the dermatology/rheumatology [...] elevated CRP. Overall she has done well on hydroxychloroquine though she has continued to have residual mild skin inflammation. Methotrexate, 15 mg, was added on March 29, 2021 nd the dose increased to 20 mg in divideddoses on June 07, 2021. She also has musculoskeletal pain that [...] vastus lateralis muscle showed an unchanged cyst. She has had a number of dental issues as well. She has needed 3 extractions due to a abscessed tooth, a broken [place] and a deep filling that would probably not hold. She has been on 2 courses of antibiotics and a tooth extraction and bone graft. In Jul, the patient was on methotrexate and hydroxychloroquine but still had significant skin inflammation. We wondered if hydroxychloroquine was having an adverse effect as described in [id number]% of patients with dermatomyositis. Hydroxychloroquine was discontinued on August 02, 2021. Her c alcium was 10.8 in May, and we did [...] top of the shoulder through the elbows. This was ordered. We also recommended that the patient increase her methotrexate to 25 mg/week to take in divided doses. We considered the use of prednisone but decided to use that drug if her skin biopsy showed activity or her MRI noted muscle changes. The patient accepts this plan and will be seen again in 1 to 2 months to barrel charrer helper the efficacy of our interventions. Skin Biopsy [...] marrow signal that I discussed with Dr. Fletcher and felt to be a normal variant. [...] months she has had increasing dyspnea on exertion. The patient has a history of atrial fibrillation and a Zio patch demonstrated no arrhythmias. She had a stress echo performed recently which showed severe left atrial enlargement but normal ventricular function. She stopped the test 4 minutes into it because of shortness of breath. When she stopped she developed a narrow complextachycardia. She believes her O2 sat was 95% during the stress test. As a result of these cardiac findings, the patient stopped her hydroxychloroquine 7 days ago. She is scheduled to do EP studies but they will probably not be scheduled until February. Off of the methotrexate and hydroxychloroquine she does have increased rash on her upper arms as well as over the right greater than left eyelid. The only other intercurrent illness the patient has had is macular degeneration which may require intraorbital injections. On physical exam Brandi looks the same but she is somewhat short of breath even talking. Her lungs are clear to auscultation both anteriorly and posteriorly. She has a regular S1 and S2 with a very brief systolic ejection murmur heard in the aortic area without radiation. She continues to have pain with range of motion in her shoulders particularly internal and external rotation. She does have a pinker rash on her upper arms as well as over the right greater than left eyelid. Her nailfold capillarieshave limited dilatation. She does have an erythematous rash in the groin and lower abdomen compatible with Stacie intertrigo. The dermatology and rheumatology team discussed our thoughts with the patient. We would get pulmonary function tests to include inspiratory and expiratory pressures as well as lung volumes. We would stop her meloxicam which can certainly cause salt and water retention. Dermatomyositis can affect the heart and may be more common than previously appreciated. And certainly hydroxychloroquine can be associated with arrhythmias as well as uncommonly with myocardial toxicity though usually after prolongeduse. The patient has a family history of [...] her after these tests have been performed. documented in this encounter Plan of Treatment Upcoming Encounters Date Type Specialty Care Team Description 09/26/2022 Office Visit Dermatology Ambreen Burroughs MD [facility] [address] [place], [place] [address] (Wo rk) 10/02/2022 Office Visit Pulmonology Laney Calhoun M [facility] Pulmonary Medici hillary [place], [place] [address] (Wo rk) 11/07/2022 Office Visit Ophthalmology Gifty Bernal MD [facility] [place], [place] [address] (Wo rk) documented as of this encounter Visit Diagnoses Diagnosis Dermatomyositis Shortness of breath on exertion Shortness of breath Candidal intertrigo Candidiasis of skin and nails documented in this encounter Care Teams Oil Field Pipeline Supervisor Relationship Specialty Start Date End Date Samantha Michelle MD PCP - General 09/14/11 [address] [place] [address] documented as of this encounter
--- OUTSIDE RECORDS SUMMARY | 2022-09-15 01:24 | XMS_ITS | Encounter Summary ---
:1955 Author Organization [facility] [place] [address] Care Team Providers Name Role Phone Samantha Michelle MD Primary Care Provider Encounter Details Date Type Department Care Team Description 08/01/2022 TH Visit Dermatology at [facility] Savi Herron MD Dermatomyositis; (TeleHealth) [address] High risk medication use [address] [place] [phone] Social History Tobacco Use Types Packs/Day Years Used Date Former Smoker Cigarettes 0.25 7 Quit: 02/07/19 76 Smokeless Tobacco: Never Used Alcohol Use Standard Drinks/Week Comments No 0 (1 standard drink = 0.6 oz pure alcoho l) Sex Assigned at Date Recorded Female 03/23/2021 8:16 AM EDT documented as of this encounter Progress Notes Savi Herron MD - 08/01/2022 1:30 PM EDT Brandi Ruiz is seen in [...] systolic pres sure was given. The patient reported at our last visit 03/21/2022 that discontinuing both her hydroxychloroquine and her methotrexate has resulted in some increase in the redness of her rash on her arms but no quantum change in her strength or the fatigue she gets on using her muscles. She endorses significant global fatigue and continues to complain of being short of breath not just with activity but even with talking. She notes that back in January 2020 which was 2 years after developing her rash, she noted being short of breath with talking. She attributed this to wearing a mask. However she has always wondered ifshe contracted COVID-19. She also has had trouble swallowing and to eat slowly to avoid aspiration. Her barium swallow was normal. Upper GI endoscopy demonstrated multiple gastric polyps but no other abnormality. In the interim she has been diagnosed with bilateral macular degeneration and is concerned that she may need some more intraocular anti-VEGF injections. The dermatology and rheumatology team at our last visit on 03/21/2022 had a discussion with the patient. Her symptoms seem about the same without hydroxychloroquine or methotrexate though the rash is more prominent. We are puzzled by her cardiopulmonary symptoms though her desaturation with activity could be due to pulmonary hypertension and this is supported by the enlargement of pulmonary artery seen on CAT scan. I am not certain why she has a severely dilated left atrium and if that has anything to do with her symptoms or with dermatomyositis. The incidence of cardiac involvement and dermatomyositis is probably higher than appreciated but is not always symptomatic. I will engage in a discussion with her crepe box tender Dr. Hanley to chart a path forward. We thoroughly agree with a pulmonary consultation. Dr. Hanley did not feel her dilated left atrium were related to her symptoms. We will also recheck her JANETH and myositis panel as her previous panel was positive for SEA 1 antibody at 32 units. Her JANETH was negative and SEA 1 antibodies remain weakly positive at 32. Because of a question of prevaccination COVID-19 infection we will get antibodies for skull valley disease. Her nucleocapsid antibodies were negative making long covid less likely as a cause of her breathing issues. Brandi saw pulmonary in March who felt her BABIN and desaturation were related to asthma. She is better on Symbacort. Brandi reported on June 13, 2022 that her condition in terms of skin and musculoskeletal pain is about the same. She is not taking hydroxychloroquine or methotrexate. She does take a nonsteroidal anti-inflammatory drug. She reflects that if anything the erythema on her arms has increased and she still has muscle pain in the arms. She wonders if it is possible that some of the tenderness is related to the rash rather than muscle inflammation. She has been doing massage for her shoulders which has helped by releasing her supraspinatus. 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 Unfortunately they were not particularly helpful and were quite painful. She meets again with her hole digger operator to discuss further intervention. This is clearly a discouraging development for her. The majority of our time together was spent with the dermatology/rheumatology team discussing our thoughts for further treatment with the patient. We considered not accelerating her treatment beyond topical agents (she is only using triamcinolone ointment at night) and systemic treatment. We considered going back on hydroxychloroquine since it initially was helpful but the patient is not wild about that in view of her eye problems. We could consider intravenous rituximab though this tends to be better for musculoskeletal manifestations of dermatomyositis and she does not have objective evidence of m uscle inflammation by MRI or muscle enzymes. We considered IVIG which is good for skin disease but may not make a difference in her muscle symptoms though again the evidence for inflammation is fairly low. We ultimately decided on CellCept working up from 1 g to 3 g a day. Although this does have sideeffects including abdominal pain and diarrhea as well as immunosuppression it may make a difference in both her skin and her musculoskeletal pain. She is in agreement and will start with 1 g for 1 month, get laboratory tests done in [place] and then increase to 2 g a day. We will see her againin September. In the interim the patient expressed concern about the immunosuppression confered by mycophenolate. She filled the medication but has not started it yet. This visit is to answer her questions. She reports that her rash has extended down her arms to her wrists and that she is plagued by myalgias and fatigue. We reiterated that we think mycophenolate is the agent most likely to help with her skin and her muscles if some of her muscular symptoms are related to dermatomyositis. 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 She knows that mycophenolate is immunosuppressive. She is particularly concerned about COVID as shewas quite sick the last time she had it. We verified that she would be more immunosuppressed but that with the updated booster available in the very near future we would have her get her booster, startthe mycophenolate about 2 weeks after and then 2 weeks into her treatment with mycophenolate to giveher Evusheld as preexposure monoclonal antibody therapy. She is also having a dental implant. We do not think that mycophenolate would have a significant effect on the procedure or her healing. The patient will be seen again as scheduled in September. This note was created with [employer] voice recognition software. Although I try to proofread carefully,there may be errors in the manufacturing coordinator. If you have any questions or concerns, please contact me for verification and correction. Thank you. documented in this encounter Plan of Treatment Upcoming Encounters Date Type Specialty Care Team Description 09/26/2022 Office Visit Dermatology Ambreen Burroughs MD [facility] DR SHAYY CASTILLO-DERMAT [place], [place] [address] ([facility]) 10/02/2022 Office Visit Pulmonology Laney Calhoun M D [facility] Pulmonary Medicguido thornton [place], [place] [address] ([facility]) 11/07/2022 Office Visit Ophthalmology Gifty Bernal MD [facility] [address] [place] [address] ([facility]) documented as of this encounter Visit Diagnoses Diagnosis Dermatomyositis High risk medication use Encounter for long-term (current) use of other medications documented in this encounter Care Teams Voice Writing Reporter Relationship Specialty Start Date End Date Samantha Michelle MD PCP - General 09/14/11 [address] [place] [address] documented as of this encounter
--- OUTSIDE RECORDS SUMMARY | 2022-09-15 01:24 | XMS_ITS | Encounter Summary ---
:1955 Author Organization [facility] [address] Care Team Providers Name Role Phone Samantha Michelle MD Primary Care Provider Encounter Details Date Type Department Care Team Description 02/17/2022 Orders Only Rheumatology at [place] Savi Herron MD [facility] [address] [place] [address] [place] [address] [place] [address] [phone] (Wo rk) Social History Tobacco Use Types [...] Dermatology Ambreen Burroughs MD [facility] ER DR SHAYY CASTILLO-DERMAT [place], [place] [address] (Wo rk) 10/02/2022 Office Visit Pulmonology Laney Calhoun M D [facility] Pulmonary Mati thornton [place], [place] [address] (Wo rk) 11/07/2022 Office Visit Ophthalmology Gifty Bernal MD [facility] Medical [facility] [address] [place], [place] [address] (Wo rk) documented as of this encounter Visit Diagnoses Not on filedocumented in this encounter Care Teams Claims Associate Relationship Specialty Start Date End Date Samantha Michelle MD PCP - General 09/14/11 [address] [place] [address] documented as of this encounter
--- OUTSIDE RECORDS SUMMARY | 2022-09-15 01:24 | XMS_ITS | Encounter Summary ---
:1955 Author Organization [place] [address] Care Team Providers Name Role Phone Samantha Michelle MD Primary Care Provider Encounter Details Date Type Department Care Team Description 06/13/2022 Office Visit Dermatology at [facility] Savi Herron MD Dermatomyositis; [address] Shortness of breath on exertion [address] [place] [address] [place] [phone] Social History Tobacco Use Types Packs/Day Years Used Date Former Smoker Cigarettes 0.25 7 Quit: 02/07/19 76 Smokeless Tobacco: Never Used Alcohol Use Standard Drinks/Week Comments No 0 (1 standard drink = 0.6 oz pure alcoho l) Sex Assigned at Date Recorded Female 03/23/2021 8:16 AM EDT documented as of this encounter Progress Notes Savi Herron MD - 06/13/2022 3:30 PM EDT Brandi Ruiz is seen in [...] will engage in a discussion with her bacon stringer Dr. Hanley to chart a path forward. [...] COVID-19 infection we will get antibodies for cahto disease. Her nucleocapsid antibodies were negative making long covid less likely as a cause of her breathing issues. Brandi saw pulmonary in March who felt her BABIN and desaturation were related to asthma. She is better on Symbacort. Brandi reports that her condition in terms of skin and musculoskeletal pain is about the same. She isnot taking hydroxychloroquine or methotrexate. She does take a nonsteroidal anti-inflammatory drug. She reflects that if anything the erythema on her arms has increased and she still has muscle pain inthe arms. She wonders if it is possible that some of the tenderness is related to the rash rather than muscle inflammation. She has been doing massage for her shoulders which has helped by releasing her supraspinatus. 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 Unfortunately they were not particularly helpful and were quite painful. She meets again with her silver wrapper to discuss further intervention. This is clearly a discouraging development for her. On physical exam Brandi looks well. Her blood pressure was 138/60 and her O2 sat 98% today. Her weight was reported at 331 pounds. The skin on her arms is notable for a fairly intense pink discolorationon the upper arms and lower arms. Palpation of the arms is uncomfortable. Her range of motion actively has improved. The majority of our time together was [...] 1 month, get laboratory tests done in [place] and then increase to 2 g a day. We will see her againin September. 20 minutes spent in reviewing the chart, seeing the patient, documenting and placing orders, and/or arranging referrals or talking with other providers regarding the patient. This note was created with [employer] voice recognition software. Although I try to proofread carefully,there may be errors in the pharmacy district manager. If you have any questions or concerns, please contact me for verification and correction. Thank you. documented in this encounter Plan of Treatment Upcoming Encounters Date Type Specialty Care Team Description 09/26/2022 Office Visit Dermatology Ambreen Burroughs MD [facility] [address]-DERMAT [place], [place] [address] (Wo rk) 10/02/2022 Office Visit Pulmonology Laney Calhoun M D [facility] Pulmonary Medicguido thornton [place], [place] [address] (Wo rk) 11/07/2022 Office Visit Ophthalmology Gifty Bernal MD [facility] [place] [address] (Wo rk) documented as of this encounter Visit Diagnoses Diagnosis Dermatomyositis Shortness of breath on exertion Shortness of breath documented in this encounter Care Teams Sea Kayaking Guide Relationship Specialty Start Date End Date Samantha Michelle MD PCP - General 09/14/11 [address] [place] [address] documented as of this encounter
--- OUTSIDE RECORDS SUMMARY | 2022-09-15 01:24 | XMS_ITS | Encounter Summary ---
:1955 Author Organization [facility] [place] [address] Care Team Providers Name Role Phone Samantha Michelle MD Primary Care Provider Reason for Visit Reason Comments Macular Degeneration Encounter Details Date Type Department Care Team Description 01/18/2022 Tech Visit Ophthalmology at [facility] Elise Bernal, [facility] [place] [address] [facility] [phone] [place], [place] [address] (Wo rk) Social History Tobacco Use Types Packs/Day Years Used Date Former Smoker Cigarettes 0.25 7 Quit: 02/07/19 75 Smokeless Tobacco: Never Used Alcohol Use Standard Drinks/Week Comments No 0 (1 standard drink = 0.6 oz pure alcoho l) Sex Assigned at Date Recorded Female 03/23/2021 8:16 AM EDT documented as of this encounter Progress Notes Sahil Bernal MD - 01/18/2022 1:15 PM EST Brandi Ruiz was here for tech visit without in person exam. We will schedule a visit once out clinic's schedule allows Fu 1-2mo for FA OD>OS, OCT, DFE poss injection documented in this encounter Plan of Treatment Upcoming Encounters Date Type Specialty Care Team Description 09/26/2022 Office Visit Dermatology Ambreen Burroughs MD [facility] DR SHAYY CASTILLO-DERMAT [place], [place] [address] (Wo rk) 10/02/2022 Office Visit Pulmonology Laney Calhoun M D [facility] Pulmonary Medicguido thornton [place], [place] [address] (Wo rk) 11/07/2022 Office Visit Ophthalmology Gifty Bernal MD [facility] [place], [place] [address] (Wo rk) documented as of this encounter Visit Diagnoses Not on filedocumented in this encounter Care Teams Skein Yarn Drier Relationship Specialty Start Date End Date Samantha Michelle MD PCP - General 09/14/11 [address] [place] [address] documented as of this encounter
--- OUTSIDE RECORDS SUMMARY | 2022-09-15 01:24 | XMS_ITS | Encounter Summary ---
:1955 Author Organization [facility] [place] [address] Care Team Providers Name Role Phone Samantha Michelle MD Primary Care Provider Encounter Details Date Type Department Care Team Description 01/18/2022 Telephone Ophthalmology at [facility] Elise Bernal, [facility] [place] [address] [facility] [phone] [place], [place] [address] (Wo rk) Social History Tobacco Use Types Packs/Day Years Used Date Former Smoker Cigarettes 0.25 7 Quit: 02/07/19 75 Smokeless Tobacco: Never Used Alcohol Use Standard Drinks/Week Comments No 0 (1 standard drink = 0.6 oz pure alcoho l) Sex Assigned at Date Recorded Female 03/23/2021 8:16 AM EDT documented as of this encounter Miscellaneous Notes Telephone Encounter - Samantha Colin - 01/18/2022 12:13 PM EST Called pt to let her know DM has been pulled into an urgent surgery during the time of her appt today. I let her know we can still see her for a tech only appt to complete testing and then DM will review results and we can go from there. The other option would be to reschedule appt all together. No answer, left vm. Changed appt to tech only visit per Carolann. documented in this encounter Plan of Treatment Upcoming Encounters Date Type Specialty Care Team Description 09/26/2022 Office Visit Dermatology Ambreen Burroughs MD [facility] [address]-DERMAT [place], [place] [address] (Wo rk) 10/02/2022 Office Visit Pulmonology Laney Calhoun M D [facility] Pulmonary Medici [place], [place] [address] (Wo rk) 11/07/2022 Office Visit Ophthalmology Gifty Bernal MD [facility] [place], [place] [address] (Wo rk) documented as of this encounter Visit Diagnoses Not on filedocumented in this encounter Care Teams Big Machine Consultant Relationship Specialty Start Date End Date Samantha Michelle MD PCP - General 09/14/11 [address] [place] [address] documented as of this encounter
--- OUTSIDE RECORDS SUMMARY | 2022-09-15 01:24 | XMS_ITS | Encounter Summary ---
:1955 Author Organization [facility] [place] [address] Care Team Providers Name Role Phone Samantha Michelle MD Primary Care Provider Reason for Referral Diagnostic Test (Routine) - Closed Specialty Diagnoses / Procedures Referred By Contact Refer red To Contact Radiology Diagnoses ILD (interstitial lung disease) Kaleb Dodson MD [facility] Rad Ct Scan Procedures CT Chest wo Contrast (Generic) [facility] [place] [address] [place] [address] Referral ID Status Reason Start Date Expiration Date Visits V isits Requested Authorized [id number] Closed Specialty 02/07/2022 08/10/2023 1 1 Service Requested Reason for Visit Diagnostic Test (Routine) - Closed Specialty Diagnoses / Procedures Referred By Contact Refer red To Contact Radiology Diagnoses ILD (interstitial lung disease) Kaleb Dodson MD [facility] Rad Ct Scan Procedures CT Chest wo Contrast (Generic) [facility] [place] [address] [place] [address] Referral ID Status Reason Start Date Expiration Date Visits V isits Requested Authorized [id number] Closed Specialty 02/07/2022 08/10/2023 1 1 Service Requested Encounter Details Date Type Department Care Team Description 03/07/[address] Scan at [facility] [place], ILD (interstitial [facility] Kaleb Edwards MD lung disease) [place], [place] [address] PULMONARY [phone] [place] [address] Social History Tobacco Use Types Packs/Day Years [...] MD [facility] DR SHAYY CASTILLO-DERMAT [place], [place] [address] (Wo rk) 10/02/2022 Office Visit Pulmonology Laney Calhoun M [facility] Pulmonary Medici hillary [place], [place] [address] (Wo rk) 11/07/2022 Office Visit Ophthalmology Gifty Bernal MD [facility] [place], [place] [address] (Wo rk) documented as of this encounter Procedures Procedure Name Priority Date/Time Associated Diagnosis Comme nts CT CHEST WO Routine 03/07/2022 11:05 AM ILD (interstitial Res ults for this CONTRAST (GENERIC) EDT lung disease) procedur e are in the results section. documented in this encounter Results CT Chest wo Contrast (Generic) (03/07/2022 11:05 AM EDT) Anatomical Region Laterality Modality Chest Computed Tomography Specimen (Source) Anatomical Collection Method Collection Time Re ceived Time Location / / Volume Laterality 03/07/2022 11:21 AM EDT Impressions 03/07/2022 11:19 AM EDT 1. ??No CT evidence of fibrotic lung dis ease or other interstitial lung disease. 2. ??Enlargement of the main pulmonary a rtery, which can be seen in pulmonary arterial hypertension. ??Correlation wit h echocardiography may be of benefit. Thank you for letting us participate in the care of this patient. ??If you are a health care provider and have any questi ons regarding this report, please contact the number below. ??For patients who have questions please contact the health furnace caretaker that requested your imaging first. ? Electronically signed by: Ant Sloan DO, [facility] ([phone]), at 03/07/2022 11:19 AM Narrative 03/07/2022 11:19 AM EDT EXAMINATION: CT CHEST WO CONTRAST (GENERIC) CLINICAL HISTORY: 66-year-old female wit h interstitial lung disease. TECHNIQUE: 3.75 mm thick axial contiguou s sections were obtained through the chest via helical acquisition without in travenous contrast administration. Thin-section reconstructions as well as coronal and sagittal reformatted images were generated. COMPARISON: Comparison is made to multip le prior CT of the chest examinations, the most recent which is dated May 19, 2019. FINDINGS: Limitations: Lack of intravenous contras t limits evaluation of the visceral organs, mediastinum, and vascular struct ures. Secretary Bookkeeper Images: Noncontributory. Pulmonary parenchyma: The lungs are andrzej r. ??There is no focal pulmonary nodule or opacity. ??There is no reticulation, honeycombing, dominant cystic or nodular lung disease, or groundglass opacity. ?? The pulmonary architecture is preserved. There is no focal pulmonary nodule. ??On expiration, there is minimal air trapping, which is within the realm of n ormal. ??On prone imaging, all dependent atelectasis resolves posteriorly. Airways: The central airways are patent. ??There is no endobronchial or endotracheal lesion. ??There is no bronc hiectasis or bronchiolectasis. Pleura: There is no pleural effusion or pneumothorax. Lymph nodes: There are no pathologically enlarged lymph nodes. Heart, pericardium, and great vessels: C ardiac size is within normal limits. There is dense calcification of the left circumflex coronary artery. ??There is an implanted loop monitor. ??The unenhan viji aorta and pulmonary arteries are normal in course. ??The main pulmonary a rtery is enlarged, measuring up to 3.3 cm in diameter. Other mediastinal structures: The medias tinal fat is preserved. ??Limited evaluation of the esophagus is unremarka ble. Lower neck: Visualized structures within the inferior neck are unremarkable. Upper abdomen: The liver is diffusely hy poattenuating, consistent with hepatic steatosis. ??There are surgical clips in the gallbladder fossa from prior cholecystectomy. ??There are a few calci fied nodules within the spleen, consistent with granulomata. Body wall soft tissues: Normal. Skeletal structures: There are no suspic ious osseous lesions. ??There are degenerative changes of visualized spine with endplate sclerosis and osteophyte formation. Procedure Note Ant Sloan, DO - 03/07/2022Formatti ng of this note might be different from the original. EXAMINATION: CT CHEST WO CONTRAST (GENER IC) CLINICAL HISTORY: 66-year-old female wit h interstitial lung disease. TECHNIQUE: 3.75 mm thick axial contiguou s sections were obtained through the chest via helical acquisition without in travenous contrast administration. Thin-section reconstructions as well as coronal and sagittal reformatted images were generated. COMPARISON: Comparison is made to multip le prior CT of the chest examinations, the most recent which is dated May 19, 2019. FINDINGS: Limitations: Lack of intravenous contras t limits evaluation of the visceral organs, mediastinum, and vascular struct ures. Secretary Bookkeeper Images: Noncontributory. Pulmonary parenchyma: The lungs are andrzej r. There is no focal pulmonary nodule or opacity. There is no reticulation, ho neycombing, dominant cystic or nodular lung disease, or groundglass opacity. Th e pulmonary architecture is preserved. There is no focal pulmonary nodule. On e xpiration, there is minimal air trapping, which is within the realm of n ormal. On prone imaging, all dependent atelectasis resolves posteriorly. Airways: The central airways are patent. There is no endobronchial or endotracheal lesion. There is no bronchi ectasis or bronchiolectasis. Pleura: There is no pleural effusion or pneumothorax. Lymph nodes: There are no pathologically enlarged lymph nodes. Heart, pericardium, and great vessels: C ardiac size is within normal limits. There is dense calcification of the left circumflex coronary artery. There is an implanted loop monitor. The unenhance d aorta and pulmonary arteries are normal in course. The main pulmonary art ashwin is enlarged, measuring up to 3.3 cm in diameter. Other mediastinal structures: The medias tinal fat is preserved. Limited evaluation of the esophagus is unremarka ble. Lower neck: Visualized structures within the inferior neck are unremarkable. Upper abdomen: The liver is diffusely hy poattenuating, consistent with hepatic steatosis. There are surgical clips in t he gallbladder fossa from prior cholecystectomy. There are a few calcifi ed nodules within the spleen, consistent with granulomata. Body wall soft tissues: Normal. Skeletal structures: There are no suspic ious osseous lesions. There are degenerative changes of visualized spine with endplate sclerosis and osteophyte formation. IMPRESSION 1. No CT evidence of fibrotic lung disea se or other interstitial lung disease. 2. Enlargement of the main pulmonary art ashwin, which can be seen in pulmonary arterial hypertension. Correlation with echocardiography may be of benefit. Thank you for letting us participate in the care of this patient. If you are a health care provider and have any questi ons regarding this report, please contact the number below. For patients w ho have questions please contact the health furnace caretaker that requested your imaging first. Electronically signed by: Atn Sloan DO, [facility] ([phone]), at 03/07/2022 11:19 AM Kaleb Dodson MD IMG CT ORDERABLES documented in this encounter Visit Diagnoses Diagnosis ILD (interstitial lung disease) Postinflammatory pulmonary fibrosis documented in this encounter Care Teams Director Of Professional Services Relationship Specialty Start Date End Date Samantha Michelle MD PCP - General 09/14/11 [address] [place] [address] documented as of this encounter
--- OUTSIDE RECORDS SUMMARY | 2022-09-15 01:24 | XMS_ITS | Encounter Summary ---
:1955 Author Organization [facility] [address] Care Team Providers Name Role Phone Samantha Michelle MD Primary Care Provider Reason for Visit Reason Comments Procedure OCT OU/ FA OD>OS Encounter Details Date Type Department Care Team Description 03/07/2022 Tech Visit Ophthalmology at [facility] Elise Bernal, Long-term use of Plaquenil; [facility] Jame Baxter MD Choroid neovascularization, [place] [address] [facility] [phone] [place], [place] [address] Social History Tobacco Use Types Packs/Day Years Used Date Former Smoker Cigarettes 0.25 7 Quit: 02/07/19 76 Smokeless Tobacco: Never Used Alcohol Use Standard Drinks/Week Comments No 0 (1 standard drink = 0.6 oz pure alcoho l) Sex Assigned at Date Recorded Female 03/23/2021 8:16 AM EDT documented as of this encounter Progress Notes Sahil Bernal MD - 03/07/2022 9:00 AM EDT Today's imaging showed signs of occult CNV OU. Will schedule a visit for formal evaluation. Fu within 1-2mo for OCT, DFE OU documented in this encounter Plan of Treatment Upcoming Encounters Date Type Specialty Care Team Description 09/26/2022 Office Visit Dermatology Ambreen Burroughs MD [facility] DR SHAYY CASTILLO-DERMAT [place], [place] [address] (Wo rk) 10/02/2022 Office Visit Pulmonology Lj, Jerry Rizzo [facility] Pulmonary Medicguido thornton [place], [place] [address] (Wo rk) 11/07/2022 Office Visit Ophthalmology Gifty Bernal MD [facility] [place], [place] [address] (Wo rk) documented as of this encounter Procedures Procedure Name Priority Date/Time Associated Comments Diagnosis OCT RETINA - OU - Routine 03/09/2022 8:50 AM Choroid Resu lts for this BOTH EYES EDT neovascularization, procedur e are in bilateral the results section. FLUORESCEIN Routine 03/09/2022 8:50 AM Long-term use of Resul ts for this ANGIOGRAPHY - OU - EDT Plaquenil procedure are in BOTH EYES Choroid the results neovascularization, section. bilateral documented in this encounter Results OCT Retina - OU - Both Eyes (03/09/2022 8:50 AM EDT) Anatomical Region Laterality Modality Other Specimen (Source) Anatomical Location Collection Method / Collectio n Time Received Time / Laterality Volume Narrative 03/09/2022 8:50 AM EDT Right Eye Quality was good. Scan locations include d subfoveal. Progression has no prior data. Findings include subretinal scarring, normal foveal contour, subretinal fluid. Left Eye Quality was good. Scan locations include d subfoveal. Progression has no prior data. Findings include subretinal scarring, normal foveal contour, subretinal fluid. Sahil Bernal MD [facility] Fluorescein Angiography - OU - Both Eyes (03/09/2022 8:50 AM EDT) Anatomical Region Laterality Modality Other Specimen (Source) Anatomical Location Collection Method / Collectio n Time Received Time / Laterality Volume Narrative 03/09/2022 8:50 AM EDT Right Eye Progression has no prior data. Early pha se findings include window defect. Mid/Late phase findings include window d efect, staining. Choroidal neovascularization is occult. Left Eye Early phase findings include window defe ct. Mid/Late phase findings include window defect, staining. Choroid al neovascularization is occult. Sahil Bernal MD [facility] documented in this encounter Visit Diagnoses Diagnosis Long-term use of Plaquenil Choroid neovascularization, bilateral documented in this encounter Care Teams Production Analyst Relationship Specialty Start Date End Date Samantha Michelel MD PCP - General 09/14/11 [address] [place] [address] documented as of this encounter
--- OUTSIDE RECORDS SUMMARY | 2022-09-15 01:24 | XMS_ITS | Encounter Summary ---
:1955 Author Organization [facility] [place] [address] Care Team Providers Name Role Phone Samantha Michelle MD Primary Care Provider Encounter Details Date Type Department Care Team Description 01/18/2022 Travel Social History Tobacco Use Types Packs/Day Years [...] 09/26/2022 Office Visit Dermatology Ambreen Burroughs MD [facility] DR SHAYY CASTILLO-DERMAT [place], [place] [address] (Wo rk) 10/02/2022 Office Visit Pulmonology Laney Calhoun M D [facility] Pulmonary Medicguido thornton [place], [place] [address] (Wo rk) 11/07/2022 Office Visit Ophthalmology Gifty Bernal MD [facility] [place], [place] [address] (Wo rk) documented as of this encounter Visit Diagnoses Not on filedocumented in this encounter Care Teams Emulsion Coater Relationship Specialty Start Date End Date Samantha Michelle MD PCP - General 09/14/11 [address] [place] [address] documented as of this encounter
--- OUTSIDE RECORDS SUMMARY | 2022-09-15 01:24 | XMS_ITS | Encounter Summary ---
:1955 Author Organization [facility] [place] [address] Care Team Providers Name Role Phone Samantha Michelle MD Primary Care Provider Encounter Details Date Type Department Care Team Description 06/16/2022 Telephone Pulmonology at [facility] [place] [address] Social History Tobacco Use Types Packs/Day Years Used Date Former Smoker Cigarettes 0.25 7 Quit: 02/07/19 76 Smokeless Tobacco: Never Used Alcohol Use Standard Drinks/Week Comments No 0 (1 standard drink = 0.6 oz pure alcoho l) Sex Assigned at Date Recorded Female 03/23/2021 8:16 AM EDT documented as of this encounter Miscellaneous Notes Telephone Encounter - Anuradha Frankel RMA - 06/16/2022 4:30 PM EDT Phone call attempts made to pt.... unsuccessful. Allergies, meds & tobacco NOT reviewed. documented in this encounter Plan of Treatment Upcoming Encounters Date Type Specialty Care Team Description 09/26/2022 Office Visit Dermatology Ambreen Burroughs MD [facility] DR SHAYY CASTILLO-DERMAT [place], [place] [address] (Wo rk) 10/02/2022 Office Visit Pulmonology Laney Calhoun M D [facility] Pulmonary Medicguido thornton [place], [place] [address] (Wo rk) 11/07/2022 Office Visit Ophthalmology Gifty Bernal MD [facility] [place], [place] [address] (Wo rk) documented as of this encounter Visit Diagnoses Not on filedocumented in this encounter Care Teams Selvage Machine Operator Relationship Specialty Start Date End Date Samantha Michelle MD PCP - General 09/14/11 [address] [place] [address] documented as of this encounter
--- OUTSIDE RECORDS SUMMARY | 2022-09-15 01:24 | XMS_ITS | Encounter Summary ---
:1955 Author Organization [facility] [place] [address] Care Team Providers Name Role Phone Samantha Michelle MD Primary Care Provider Reason for Referral Diagnostic Test (Routine) - Closed Specialty Diagnoses / Procedures Referred By Contact Refer red To Contact Cardiology Diagnoses PAF (paroxysmal atrial fibrillation) Encounter for screening for lipid disorder Ayesha Adan MD [facility] Non-Inv Card Lab Procedures Ziopatch 48 Hrs-15 Days [facility] [place] [address] [place] [address] [place] [address] Fax: Referral ID Status Reason Start Date Expiration Date Visits V isits Requested Authorized [id number] Closed Specialty 12/05/2021 06/04/2022 1 1 Service Requested iagnostic Test (Routine) - Closed Specialty Diagnoses / Procedures Referred By Contact Refer red To Contact Diagnoses PAF (paroxysmal atrial fibrillation) Encounter for screening for lipid disorder Ayesha Adan MD [facility] Non-Inv Card Lab Procedures Echocardiogram Stress (Treadmill) [facility] [place] [address] [place] [address] [place] [address] Fax: Referral ID Status Reason Start Date Expiration Date Visits V isits Requested Authorized [id number] Closed Specialty 12/05/2021 12/05/2022 1 1 Service Requested Reason for Visit Consultation (Routine) - Authorized Specialty Diagnoses / Procedures Referred By Contact Refer red To Contact Cardiology Diagnoses Paroxysmal atrial fibrillation PAF, occasional episode which she can sense. On metoprolol. Discuss starting anticoagulation. *SCANNED DOCS Samantha Michelle MD [facility] [address] [facility] [place] [address] [place] [address] Referral ID Status Reason Start Expiration Visits Visits Date Date Requested Authorized [id number] Authorized Consult, 10/13/2022 12 12 Test & Treat 1 [facility] PCP Updated and/or Approved Encounter Details Date Type Department Care Team Description 12/05/2021 Office Visit Cardiology at [facility] Ayesha Adan, PAF (paroxysmal atrial fibri llation); [facility] Encounter for screening for [place] [address] [place], [place] [id number] Social History Tobacco Use Types Packs/Day Years [...] Sign Reading Time Taken Comments Blood Pressure 136/54 12/05/2021 10:39 AM EST Pulse 75 12/05/2021 10:39 AM EST Temperature - - Respiratory Rate - - Oxygen Saturation 97% 12/05/2021 10:39 AM EST Inhaled Oxygen Concentration - - Weight 146.1 kg (322 lb) 12/05/2021 10:39 AM EST Height 175.9 cm (5' 9.25) 12/05/2021 10:39 AM EST Body Mass Index 47.21 12/05/2021 10:39 AM EST documented in this encounter Progress Notes Ayesha Adan MD - 12/05/2021 11:00 AM EST CARDIOLOGY OUTPATIENT CLINIC NOTE PRIMARY CARE PROVIDER: Samantha Michelle MD REFERRING PROVIDER: Samantha Michelle Patient ID: Milana Ruiz is a 66 y.o. female. 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 About five years ago she was found to be in afib and given diltiazem and converted back to sinus. She has GNIO and wears CPAP and has been on [...] daughter has returned home with grandson. 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 She has another daughters. She had normal pregnancies. She had one ruptured ectopic. She is post menopause, she had excessive bleeding and got uterine ablation (age approx 56). She does not smoke, no alcohol. No stimulants. No caffeine. She does not follow any specific diet. She is losing weight. 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 fluconazole (Diflucan) 150 mg Tablet Take one tablet by mouth every 72 hours for 2 doses. 2 tablet 0 ??? gabapentin (Neurontin) 100 mg Capsule 200 mg. ??? ondansetron (Zofran) 4 mg Tablet ??? clindamycin (Cleocin) 150 mg Capsule ??? azithromycin (Zithromax) 250 mg Tablet ??? hydrOXYchloroQUINE (Plaquenil) 200 mg Tablet Take 1 tablet by mouth 2 times daily. 60 tablet 1 ??? metHOTREXate 2.5 mg Tablet Take 10 tablets (25 mg) by mouth once a week. Take in divided doses over 24 hrs. 40 tablet 1 ??? triamcinolone (Kenalog) 0.1 % Ointment Apply to affected areas on arms twice daily for 10-14 days. Take 5-7 days off and repeat as needed 454 g 1 ??? metHOTREXate 2.5 mg Tablet Take 8 tablets (20 mg) by mouth once a week. Take 4 tablets in the morning and 4 tablets in the evening, once weekly. 32 tablet 3 ??? vit A/vit C/vit E/zinc/copper (PRESERVISION AREDS ORAL) Take 1 capsule by mouth 2 times daily. ??? hydrOXYchloroQUINE (Plaquenil) 200 mg Tablet Take 1 tablet by mouth 2 times daily. Indications: dermatomyositis 60 tablet 3 ??? folic acid (Folvite) 1 mg Tablet Take 1 tablet by mouth daily. 90 tablet 3 ??? meloxicam (MOBIC) 15 mg Tablet Take 1 tablet by mouth daily. 30 tablet 12 ??? diclofenac EC (Voltaren) 75 mg Tablet, Delayed Release (E.C.) Take 1 tablet by mouth 2 times daily as needed (Joint pains). (Patient not taking: Reported on 03/29/2021) 180 tablet 0 ??? fluocinolone acetonide (SYNALAR) 0.01 % Solution Apply topically to scalp 1- 2x day for 2 weeks when flaring then use 2-3x week for maintenance. 90 mL 3 ??? hydrOXYchloroQUINE (Plaquenil) 200 mg Tablet Take 1 tablet by mouth 3 times daily. Indications: dermatomyositis (Patient not taking: Reported on 03/29/2021) 270 tablet 0 ??? fluticasone furoate-vilanteroL (Breo Ellipta) 200-25 mcg/dose Disk with Device Inhale 1 puff into the lungs daily. (Patient taking differently: Inhale 1 puff into the lungs daily as needed.) 1 each5 ??? fluticasone propionate (FLONASE) 50 mcg/actuation [place], Suspension 2 sprays by Each Nare route daily. (Patient not taking: Reported on 03/29/2021) 1 each 3 ??? gabapentin (NEURONTIN) 300 mg Capsule Take 200 mg by mouth every evening. ??? polyethylene glycol (MIRALAX) 17 gram Powder [...] Types: Cigarettes Quit date: 02/07/1975 Years since quittin.8 ??? Smokeless tobacco: Never Used Vaping Use [...] the past 24 hrs: Pulse BP SpO2 12/05/21 1039 75 136/54 97 % No results found for this or any previous visit (from the past 72 hour(s)). Assessment and Plan: No problem-specific Assessment & Plan notes found for this encounter. Lipids ?? No recent panel, will see if this was done at outside facility and if not, order panel Blood pressure ?? At goal on current regimen Chest discomfort ?? Unclear etiology, she has several risk factors and I feel it is reasonable to have a stress echocardiogram Palpitations ?? Unclear if this is afib, SVT, or ectopic beats ?? She will have a ziopatch ?? I do not see a TSH, I have ordered this ?? She will have resting echo to evaluate for organic heart disease Lifestyle ?? She has a busy work and home schedule but I counseled on trying to fit in physical activity TSH Time spent for this clinic appointment on the date of service includes: 1) [id number] counseling as noted above 2) reviewing past medical records, cardiac testing, results of laboratory testing 3) coordinating care with other physicians and allied health care providers Ayesha Adan MD, Aure, FACC, FNLA Attending Shipping Support Sports Cardiology Program Preventive Cardiology Lipid Clinic Advanced Hypertension Clinic documented in this encounter Plan of Treatment Upcoming Encounters Date Type Specialty Care Team Description 09/26/2022 Office Visit Dermatology Ambreen Burroughs MD [facility] ER DR [address] [place], [place] [address] (Wo rk) 10/02/2022 Office Visit Pulmonology Laney Calhoun M D [facility] Medical [facility] er Pulmonary Medicguido thornton [place], [place] [address] (Wo rk) 11/07/2022 Office Visit Ophthalmology Gifty Bernal MD [facility] er [place], [place] [address] (Wo rk) documented as of this encounter Results STRESS ECHOCARDIOGRAM W CONTRAST LMTD SPEC DOPP,COLOR DOPP (01/23/2022 10:15 AM EST) Anatomical Region Laterality Modality Other Specimen (Source) Anatomical Collection Method Collection Time Re ceived Time Location / / Volume Laterality 01/23/2022 9:11 AM EST Narrative 01/23/2022 11:49 AM EST ? Version 2 [facility] ?[address] ? [place] [address] ?Voice: ?Fax: ? Exerci se Stress Echocardiogram Report Name: MILANA RUIZ ? Study Date: 01/23/2022 09:11 AM ??BP: 172/98 mmHg ? [facility] 1955 ? Height: 175 cm ? Account: [id number] Age: 66 yrs ? Weight: 145 kg Gender: Female ?BSA: 2.5 m2 Ordering Physician: LOCO^TRAVIS Referring Physician: [...] be different from the original. Version 2 [place] [address] [place] [address] Voice: Fax: Exercise Stress Echocardiogram Report Name: MARLENYMILANA Study Date: 2021 09:11 AM BP: 172/98 mmHg Patient Location: ^[facility] 1955 Height: 175 cm Account: [id number] Age: 66 yrs Weight: 145 kg Gender: Female BSA: 2.5 m2 Ordering Physician: ROD Referring Physician: AYESHA ADAN Performed By: Ru [...] small Interpret Hypokinetic Dyskinetic 3-5 mod erate 5 - 6-14 large Aneurysmal 15-16 diffuse Ayesha Adan MD ECHO ORDERABLES Ziopatch 48 Hrs-15 Days (12/05/2021 11:58 AM EST) Anatomical Region Laterality Modality Other Specimen (Source) Anatomical Location Collection Method / Collectio n Time Received Time / Laterality Volume Narrative 12/29/2021 9:58 AM EST [facility] ? Zio Patch? Ambulatory Cardiac Event Monitor Report Duration of recording ? 12 days, 7 hours (December 05, 2021 until December 17, 2021) Summary Data Predominant rhythm ? sinus rhythm Minimum sinus rate: 54 bpm, sinus bradyc ardia at 5:39 AM on December 12, 2019 Maximum sinus rate: 116 bpm, sinus tachy cardia at 5:20 PM on December 05, 2019 Average heart rate 74 bpm Atrial fibrillation not observed Ectopic beats Rare atrial premature beats (APC? s) Rare ventricular premature beats (VPC's) ; ventricular bigeminy (4.6 seconds) also observed 2 brief episodes of supraventricular tac hycardia, average heart rate 102 bpm Fastest: 4 beats, 2.5 seconds at 99 bpm- briefly as fast as 110 bpm Longest: 5 beats, 3.4 seconds at 106 bpm . These likely represent brief episodes of nonsustained atrial tachycardia Triggered and Patient Diary Events There were 4 triggered and 3 patient hannah ry events: Triggered events: Sinus rhythm, 70 bpm u p to 83 bpm, with occasional premature beats Diary events: Fluttering, racing, anxio us, sinus rhythm, heart rates 80 bpm up to 84 bpm with premature atrial b eats Conclusion(s): ?? 1) Predominant rhythm: Sinus rhythm 2) No significant arrhythmias 3) Symptoms appear to correlate with sin us rhythm, possibly with awareness of premature contractions Ayesha Adan MD CARDIAC SERVICES ORDERABLES documented in this encounter Visit Diagnoses Diagnosis PAF (paroxysmal atrial fibrillation) Atrial fibrillation Encounter for screening for lipid disord er PAF (paroxysmal atrial fibrillation) Atrial fibrillation Encounter for screening for lipid disord er PAF (paroxysmal atrial fibrillation) Atrial fibrillation Encounter for screening for lipid disord er documented in this encounter Care Teams Stave Hewer Relationship Specialty Start Date End Date Samantha Michelle MD PCP - General 09/14/11 [address] [place] [address] documented as of this encounter
--- OUTSIDE RECORDS SUMMARY | 2022-09-15 01:24 | XMS_ITS | Encounter Summary ---
:1955 Author Organization [facility] [address] Care Team Providers Name Role Phone Samantha Michelle MD Primary Care Provider Encounter Details Date Type Department Care Team Description 08/11/2022 Telephone Ophthalmology at [facility] Elise Bernal, [facility] [place] [address] [facility] [phone] [place], [place] [address] (Wo rk) Social History Tobacco Use Types Packs/Day Years Used Date Former Smoker Cigarettes 0.25 7 Quit: 02/07/19 75 Smokeless Tobacco: Never Used Alcohol Use Standard Drinks/Week Comments No 0 (1 standard drink = 0.6 oz pure alcoho l) Sex Assigned at Date Recorded Female 03/23/2021 8:16 AM EDT documented as of this encounter Miscellaneous Notes Telephone Encounter - Ania Horton - 08/16/2022 2:08 PM EDT Scheduled Telephone Encounter - Samantha Colin - 08/11/2022 3:26 PM EDT LM for pt to schedule next appt with DM: Fu 2-3mo for OCT FA OD>OS, DFE ?in the exam vs mini room OU (poss inj OU) documented in this encounter Plan of Treatment Upcoming Encounters Date Type Specialty Care Team Description 09/26/2022 Office Visit Dermatology Ambreen Burroughs MD [facility] [address] [place], [place] [address] (Wo rk) 10/02/2022 Office Visit Pulmonology Laney Calhoun M D [facility] Pulmonary Medici hillary [place], [place] [address] (Wo rk) 11/07/2022 Office Visit Ophthalmology Gifty Bernal MD [facility] [place], [place] [address] (Wo rk) documented as of this encounter Visit Diagnoses Not on filedocumented in this encounter Care Teams Instructor Of Spanish Relationship Specialty Start Date End Date Samantha Michelle MD PCP - General 09/14/11 [address] [place] [address] documented as of this encounter
--- OUTSIDE RECORDS SUMMARY | 2022-09-15 01:24 | XMS_ITS | Encounter Summary ---
:1955 Author Organization [place] [address] Care Team Providers Name Role Phone Samantha Michelle MD Primary Care Provider Encounter Details Date Type Department Care Team Description 11/15/2021 Telephone Dermatology at [facility] Ambreen Burroughs MD [address] [place] [address] [facility] [phone] [place], [place] [address] (Wo rk) Social History Tobacco [...] Notes Telephone Encounter - Lisset Escoto - 11/15/2021 11:30 AM EST I left a voicemail for Brandi Ruiz requesting a call back to schedule Derm/Rheum follow up in Dec. Telephone Encounter - Lisset Escoto - 11/15/2021 11:29 AM EST ----- Message from Yuliana Barboza sent at 11/01/2021 12:08 PM EST ----- 2-3 month derm rheum follow up documented in this encounter Plan of Treatment Upcoming Encounters Date Type Specialty Care Team Description 09/26/2022 Office Visit Dermatology Ambreen Burroughs MD [facility] [address] [place], [place] [address] (Wo rk) 10/02/2022 Office Visit Pulmonology Laney Calhoun M D [facility] Pulmonary Medici hillary [place], [place] [address] (Wo rk) 11/07/2022 Office Visit Ophthalmology Gifty Bernal MD [facility] [place], [place] [address] (Wo rk) documented as of this encounter Visit Diagnoses Not on filedocumented in this encounter Care Teams Pharmacy Messenger Relationship Specialty Start Date End Date Samantha Michelle MD PCP - General 09/14/11 [address] [place] [address] documented as of this encounter
--- OUTSIDE RECORDS SUMMARY | 2022-09-15 01:24 | XMS_ITS | Encounter Summary ---
:1955 Author Organization [place] [address] Care Team Providers Name Role Phone Samantha Michelle MD Primary Care Provider Reason for Referral Diagnostic Test (Routine) - New Request Specialty Diagnoses / Procedures Referred By Contact Refer red To Contact Cardiology Diagnoses Palpitations Larry Cedillo PA [facility] Non-Inv Card Lab Procedures ILR Placement [facility] [place] [address] [place] [address] Referral ID Status Reason Start Expiration Visits Visits Date Date Requested Authorized [id number] New Request Specialty 01/26/2022 01/26/2023 1 1 Service Requested Reason for Visit Consultation (Routine) - Closed Specialty Diagnoses / Referred By Referred To Cont act Procedures Contact Electrophysiology / Diagnoses PAF (paroxysmal atrial fibrillation) Encounter for screening for lipid disorder history of afib/SVT recent zio but St echo 01/23--> SVT/afib in recovery see note for complete details Ayesha Jernigan, [facility] 4[facility] Cardiology MD [facility] [phone] Phone: Phone: Referral ID Status Reason Start Date Expiration Date Visits V isits Requested Authorized [id number] Closed Consult, 01/23/2022 01/23/2023 1 1 Test & Treat Encounter Details Date Type Department Care Team Description 01/26/2022 Office Visit Cardiology at [facility] Larry Cedillo PAF (paroxysmal atrial fibri llation); [facility] Palpitations; Drive [facility] SVT (supraventricular tachyc ardia) [place] [address] CARDIOLOGY DEPT [phone] [place], [place] [address] Social History Tobacco Use Types [...] Sign Reading Time Taken Comments Blood Pressure 137/68 01/26/2022 1:18 PM EST Pulse 81 01/26/2022 1:18 PM EST Temperature - - Respiratory Rate - - Oxygen Saturation 97% 01/26/2022 1:18 PM EST Inhaled Oxygen Concentration - - Weight 147 kg (324 lb) 01/26/2022 1:18 PM EST Height 175.3 cm (5' 9) 01/26/2022 1:18 PM EST Body Mass Index 47.85 01/26/2022 1:18 PM EST documented in this encounter Patient Instructions Patient InstructionsTreLarry foster PA - 01/26/2022 2:02 PM EST Procedure Information 1. You will be scheduled for an implantable loop recorder implant procedure on Monday February 07, 2022. You will need to arrive at 8:45 AM. Please check in at the Cardiology Clinic 4A. 2. You can eat before you arrive. 3. You may take your morning medications. 4. Please use HIBICLENS soap the night before and the morning of the surgery. 5. If you need to change the date or time of your surgery or you become ill, please call scheduling at [phone]. Device Clinic Information 1. You will be given post-procedure restrictions and instructions at the time of your discharge. 2. At the time of implant, you will be given a home monitor that is capable of sending clinical information to the device clinic (which can take the place of an office visit). documented in this encounter Progress Notes Larry Cedillo PA - 01/26/2022 1:30 PM EST Cardiac Electrophysiology Consultation Subjective: Patient ID: Brandi Ruiz is a 66 y.o. female referred by Samantha Michelle MD CC: Palpitations HPI: 66 y.o. female with past medical history of paroxysmal supraventricular tachycardia, on metoprolol, remote history of sole atrial fibrillation episode (documentation from OSH not available at timeof visit), dermatomyositis, hypothyroidism, anemia, GINO on CPAP, anxiety, asthma, obesity, who presented today in outpatient electrophysiology clinic to discuss management of arrhythmias. 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 She was reportedly treated with IV Diltiazem before spontaneously convertingback to sinus. Since that time, she has had diagnosis of paroxysmal supraventricular tachycardia lasting upwards of 15 minutes that has been reasonably controlled on AV-shiraz blockers. She had a recentZiopatch in November 2021 that showed predominant sinus rhythm with rare PSVT lasting 4-5 beats at most with rates up to 110 bpm, likely non-sustained atrial tachycardia. She can tell the difference between SVT and AFIb (latter is more irregular). She has episodes one to two times per month that are self-limiting overall. She has tried vagal maneuvers but have not been significantly effective in terminating all episodes. She even had SVT at peak stress/early recovery of treadmill stress echocardiogram evaluation on 01/23/2022 which resolved on its own and showed no acute ischemia with overall normal resting and hyperdynamic LVEF at peak stress without wall motion abnormalities. She avoids consuming caffeine or stimulants. She does not smoke or drink alcohol. She lives at home with her , daughter, and grandson. A 12-lead EKG today showed sinus rhythm 87 bpm with no significant EKG changes compared to prior in 2016. Last echo 01/23/2022 showed normal preserved LVEF 68% without wall motion abnormalities, normal RV systolic function, severely dilated left and right atrium, trace mitral and tricuspid regurgitation, and no significant valvular abnormalities. Patient Active Problem List Diagnosis ??? Status post placement of implantable loop recorder ??? PAF (paroxysmal atrial fibrillation) ??? Amyopathic dermatomyositis ??? Mild intermittent asthma, uncomplicated ??? History of bilateral knee replacement ??? History of basal cell carcinoma ??? SVT (supraventricular tachycardia) ??? Hypothyroid ??? Anemia ??? Hypothyroidism ??? Anxiety ROS: Constitutional: + fatigue, - fever, - chills Respiratory: + shortness of breath, +wheeze; - cough, - apnea Cardiovascular: +intermittent chest pain, + palpitations, - dyspnea on exertion, - diaphoresis Gastrointestinal: - nausea, - vomiting, - abdominal pain Neurological: - lightheadedness, - dizziness, - syncope Psychiatric: + anxious Medications: Current Outpatient Medications Medication Sig Note [...] Pt takes PRN 454 g 1 ??? polyethylene glycol (MIRALAX) [...] by mouth every morning (before breakfast). ??? meloxicam (MOBIC) 15 mg Tablet Take 1 tablet by mouth daily. 30 tablet 12 Social History Socioeconomic History ??? Marital status: Spouse name: Not on file ??? Number of children: Not on file ??? Years of education: Not on file ??? Highest education level: Not on file Occupational History ??? Not on file Tobacco Use ??? Smoking status: Former Smoker Packs/day: 0.25 Years: 7.00 Pack years: 1.75 Types: Cigarettes Quit date: 02/07/1975 Years since quittin.0 ??? Smokeless tobacco: Never Used Vaping Use [...] file Housing Stability: Not on file Objective: Vitals: Vitals: 01/26/22 1318 BP: 137/68 Pulse: 81 SpO2: 97% Weight: (!) 147 kg (324 lb) Height: 175.3 cm (5' 9) Physical Exam: General- No acute distress, sitting comfortably in exam room chair HEENT- Head atraumatic, normocephalic Skin- Warm and dry Neck- No JVD noted Cardiovascular- S1/S2 regular rate and rhythm. No murmur, rub or gallop Lungs- Clear to auscultation bilaterally Extremities- Pulses equal bilaterally. No edema noted Neuro- A&Ox3 Lab Results Component Value Date NA 140 06/07/2021 K 4.6 06/07/2021 CL 102 06/07/2021 CO2 27 06/07/2021 BUN 13 06/07/2021 CREATININE 0.65 (L) 06/07/2021 GLUCOSE 108 06/07/2021 CALCIUM 10.8 (H) 06/07/2021 ESTGFR 93 06/07/2021 No results found for: MAGNESIUM Lab Results Component Value Date WBC 8.3 11/01/2021 HGB 12.3 11/01/2021 HCT 39.1 11/01/2021 MCV 84.4 11/01/2021 PLATELET 203 11/01/2021 Assessment and Plan: 66 y.o. with medical history significant for: 1. Palpitations 2. Paroxysmal SVT felt to likely represent atrial tachycardia 3. Remote episode of AFib reported (no EKG confirmation) 4. Preserved LVEF 5. Normal stress echo and pharmacological stress without ischemia 6. Non-cardiac chest pressure/pain 7. Asthma 8. GINO on CPAP Plan: 1. Continue metoprolol 2. In absence of confirmation of AFib with short-term monitoring, discussed benefits of long-term monitoring including 28-day event recorder and implantable loop recorder. Patient opted for the latter granted ability to monitor for 2-3 years with ILR. Discussed risks of ILR implantation including <1% risk of infection, bleeding, implant site discomfort, and side effects with local anesthetics. After careful discussion and answering all patient's questions and concerns, verbal informed consent wasprovided. 3. Pre-ILR implant instructions provided at conclusion of visit. Patient Instructions Procedure Information 1. You will be scheduled for an implantable loop recorder implant procedure on Monday February 07, 2022. You will need to arrive at 8:45 AM. Please check in at the Cardiology Clinic 4A. 2. You can eat before you arrive. 3. You may take your morning medications. 4. Please use HIBICLENS soap the night before and the morning of the surgery. 5. If you need to change the date or time of your surgery or you become ill, please call scheduling at [phone]. Device Clinic Information 1. You will be given post-procedure restrictions and instructions at the time of your discharge. 2. At the time of implant, you will be given a home monitor that is capable of sending clinical information to the device clinic (which can take the place of an office visit). documented in this encounter Plan of Treatment Upcoming Encounters Date Type Specialty Care Team Description 09/26/2022 Office Visit Dermatology Ambreen Burroughs MD [facility] DR SHAYY CASTILLO-DERMAT [place], [place] [address] (Wo rk) 10/02/2022 Office Visit Pulmonology Laney Calhoun M D [facility] Pulmonary Medici [place], [place] [address] (Wo rk) 11/07/2022 Office Visit Ophthalmology Gifty Bernal MD [facility] [place], [place] [address] (Wo rk) documented as of this encounter Procedures Procedure Name Priority Date/Time Associated Diagnosis Comme nts EKG 12-LEAD Routine 01/26/2022 1:23 PM PAF (paroxysmal Result s for this EST atrial fibrillation) procedu re are in the results section . documented in this encounter Results IMPLANTABLE LOOP [...] was formed using blunt dissection. ??The ILR ([employer], Model# M301, Serial# [id number]) was implant ed using the supplied injector [...] was formed using blunt dissection. The ILR ([employer], Model# M301, Serial# [id number]) was implanted using the supplied injector tool, [...] Carlos Alberto Benton MD CARDIAC SERVICES ORDERABLES EKG 12 Lead (01/26/2022 1:23 PM EST) [facility] gist Method Time Signature Ventricular rate 87 BPM MUSE SYSTEM Atrial Rate 87 BPM MUSE SYSTEM P-R Interval 150 ms MUSE SYSTEM QRS Duration 110 ms MUSE SYSTEM Q-T Interval 374 ms MUSE SYSTEM QTC Calculated 450 ms MUSE SYSTEM (Bezet) Calculated P [place] 59 degrees MUSE SYSTEM Calculated R [place] 18 degrees MUSE SYSTEM Calculated T [place] 52 degrees MUSE SYSTEM INTERPRETATION Normal sinus rhythm MUSE SYSTEM Incomplete right bundle branch block Borderline ECG No previous ECGs available Confirmed by MD BREEZY, WOLFGANG ([id number]) on 01/27/2022 1:58:04 PM Specimen Anatomical Collection Method Collection Time Receive d Time (Source) Location / / Volume Laterality 01/26/2022 1:23 PM 1:58 EST PM EST Carlos Alberto Benton MD ECG ORDERABLES Performing Organization Address City/State/ZIP Code Phon e Number MUSE SYSTEM documented in this encounter Visit Diagnoses Diagnosis PAF (paroxysmal atrial fibrillation) Atrial fibrillation Palpitations SVT (supraventricular tachycardia) Other specified cardiac dysrhythmias Palpitations documented in this encounter Care Teams Interchange Agent Relationship Specialty Start Date End Date Samantha Michelle MD PCP - General 09/14/11 [address] [place] [address] documented as of this encounter
--- OUTSIDE RECORDS SUMMARY | 2022-09-15 01:24 | XMS_ITS | Encounter Summary ---
:1955 Author Organization [facility] [place] [address] Care Team Providers Name Role Phone Samantha Michelle MD Primary Care Provider Reason for Referral Diagnostic Test (Routine) - Closed Specialty Diagnoses / Procedures Referred By Contact Refer red To Contact Radiology Diagnoses ILD (interstitial lung disease) Kaleb Dodson MD [facility] Rad Ct Scan Procedures CT Chest wo Contrast (Generic) [facility] [place] [address] [place] [address] Referral ID Status Reason Start Date Expiration Date Visits V isits Requested Authorized [id number] Closed Specialty 02/07/2022 08/10/2023 1 1 Service Requested Encounter Details Date Type Department Care Team Description 02/07/2022 Orders Only Pulmonology at [facility] Kaleb Dodson ILD (interstitial lung [facility] MD Jerry disease) (Primary Dx) [place] [address] PULMONARY MEDICI [place], [place] [address] Social History Tobacco Use Types [...] [facility] DR SHAYY CASTILLO-DERMAT [place], [place] [address] (Wo rk) 10/02/2022 Office Visit Pulmonology Laney Calhoun M D [facility] Pulmonary Medici hillary [place], [place] [address] (Wo rk) 11/07/2022 Office Visit Ophthalmology Gifty Bernal MD [facility] [address] [place], [place] [address] (Wo rk) documented as of this encounter Results Pulmonary Function Testing (03/07/2022 [...] / FVC LLN 65 % COMPAS PFT HSE03-18 Actual 3.19 L/s COMPAS PFT Pre-BD DYF43-58 Pre-BD 141 % COMPAS PFT % of Predicted RYA29-91 2.27 L/s COMPAS PFT Predicted QIK88-63 Pre-BD 0.99 COMPAS PFT Z-Score DLCO Hb [...] City/State/ZIP Code Phon e Number COMPAS PFT CT Chest wo Contrast (Generic) (03/07/2022 11:05 [...] who have questions please contact the health mall plant caretaker that requested your imaging first. ? Electronically signed by: Ant Sloan DO, [facility] ([phone]), at 03/07/2022 11:19 AM Narrative 03/07/2022 11:19 [...] visceral organs, mediastinum, and vascular struct ures. Hat Former Images: Noncontributory. Pulmonary parenchyma: The lungs are [...] visceral organs, mediastinum, and vascular struct ures. Hat Former Images: Noncontributory. Pulmonary parenchyma: The lungs are [...] ho have questions please contact the health mall plant caretaker that requested your imaging first. Electronically signed by: Ant Sloan DO, [facility] ([phone]), at 03/07/2022 11:19 AM Kaleb Dodson MD IMG CT ORDERABLES documented in this encounter Visit Diagnoses Diagnosis ILD (interstitial lung disease) - Primar y Postinflammatory pulmonary fibrosis ILD (interstitial lung disease) Postinflammatory pulmonary fibrosis ILD (interstitial lung disease) Postinflammatory pulmonary fibrosis documented in this encounter Care Teams Agriscience Teacher Relationship Specialty Start Date End Date Samantha Michelle MD PCP - General 09/14/11 [address] [place] [address] documented as of this encounter
--- OUTSIDE RECORDS SUMMARY | 2022-09-15 01:24 | XMS_ITS | Encounter Summary ---
:1955 Author Organization [facility] [place] [address] Care Team Providers Name Role Phone Samantha Michelle MD Primary Care Provider Reason for Referral Diagnostic Test (Routine) - Closed Specialty Diagnoses / Procedures Referred By Contact Refer red To Contact Cardiology Diagnoses PAF (paroxysmal atrial fibrillation) Encounter for screening for lipid disorder Ayesha Jernigan MD [facility] Non-Inv Card Lab Procedures Ziopatch 48 Hrs-15 Days [facility] [address] [address] Fax: Referral ID Status Reason Start Date Expiration Date Visits V isits Requested Authorized [id number] Closed Specialty 12/05/2021 06/04/2022 1 1 Service Requested Reason for Visit Diagnostic Test (Routine) - Closed Specialty Diagnoses / Procedures Referred By Contact Refer red To Contact Cardiology Diagnoses PAF (paroxysmal atrial fibrillation) Encounter for screening for lipid disorder Ayesha Jernigan MD [facility] Non-Inv Card Lab Procedures Ziopatch 48 Hrs-15 Days [facility] [place] [address] [place] [address] Fax: Referral ID Status Reason Start Date Expiration Date Visits V isits Requested Authorized [id number] Closed Specialty 12/05/2021 06/04/2022 1 1 Service Requested Encounter Details Date Type Department Care Team Description 12/05/2021 Hospital Encounter Non-Invasive Ayesha Jernigan PAF (pa roxysmal atrial fibrillation); Cardiology Lab Bessy Ellison MD Encounter for screening for lipid disord er [facility] [place], [place] [address] [address] [place], [place] [phone] (Work) [phone] Social History Tobacco Use Types Packs/Day Years [...] 0 mg capsule every morning (before breakfast). metHOTREXate 2.5 mg Take 8 tablets (20 [...] daily. Ellipta) 200-25 mcg/dose Disk with Device fluticasone propionate 2 sprays by Each Nare 1 each 3 01/18/2022 (FLONASE) 50 route daily. mcg/actuation [place], Suspension documented as of this encounter Plan of Treatment Upcoming Encounters Date Type Specialty Care Team Description 09/26/2022 Office Visit Dermatology Ambreen Burroughs MD [facility] DR SHAYY CASTILLO-DERMAT [place], [place] [address] ( rk) 10/02/2022 Office Visit Pulmonology Laney Calhoun M D [facility] Pulmonary [place]guido [place], [place] [address] (Wo rk) 11/07/2022 Office Visit Ophthalmology Gifty Bernal MD [facility] [place], [place] [address] (Wo rk) documented as of this encounter Procedures Procedure Name Priority Date/Time Associated Diagnosis Comme nts ZIOPATCH 48 HRS-15 Routine 12/05/2021 11:58 AM PAF (paroxysmal Results for this DAYS EST atrial fibrillat ion) procedure are in Encounter for the results screening for lipid section. disorder documented in this encounter Results Ziopatch 48 Hrs-15 Days (12/05/2021 11:58 AM EST) Anatomical Region Laterality Modality Other Specimen (Source) Anatomical Location Collection Method / Collectio n Time Received Time / Laterality Volume Narrative 12/29/2021 9:58 AM EST [facility] ? Zio Patch? Ambulatory Cardiac Event Monitor [...] possibly with awareness of premature contractions Ayesha Jernigan MD CARDIAC SERVICES ORDERABLES documented in this encounter Visit Diagnoses Diagnosis PAF (paroxysmal atrial fibrillation) Atrial fibrillation Encounter for screening for lipid disord er documented in this encounter Care Teams Odd Jobs Day Worker Relationship Specialty Start Date End Date Samantha Michelle MD PCP - General 09/14/11 [address] [place] [address] documented as of this encounter
--- OUTSIDE RECORDS SUMMARY | 2022-09-15 01:24 | XMS_ITS | Encounter Summary ---
:1955 Author Organization [facility] [place] [address] Care Team Providers Name Role Phone Samantha Michelle MD Primary Care Provider Reason for Visit Reason Onset Date Comments Medication Refill 02/13/2022 Encounter Details Date Type Department Care Team Description 02/13/2022 Refill Rheumatology at [facility] Savi Herron MD [address] [phone] RHEUMATOLOGY [phone] [place], [place] [address] (Wo rk) Social History [...] 09/26/2022 Office Visit Dermatology Ambreen Burroughs MD [facility] DR SHAYY CASTILLO-DERMAT [place], [place] [address] (Wo rk) 10/02/2022 Office Visit Pulmonology Laney Calhoun M D [facility] Pulmonary Medicguido [place], [place] [address] (Wo rk) 11/07/2022 Office Visit Ophthalmology Gifty Bernal MD [facility] er [address] [place], [place] [address] (Wo rk) documented as of this encounter Visit Diagnoses Not on filedocumented in this encounter Care Teams Youth Court Judge Relationship Specialty Start Date End Date Samantha Michelle MD PCP - General 09/14/11 [address] [place] [address] documented as of this encounter
--- OUTSIDE RECORDS SUMMARY | 2022-09-15 01:24 | XMS_ITS | Encounter Summary ---
:1955 Author Organization [facility] [place] [address] Care Team Providers Name Role Phone Samantha Michelle MD Primary Care Provider Reason for Visit Reason Comments Follow-up Encounter Details Date Type Department Care Team Description 01/24/2022 Office Visit Dermatology at [facility] De rmatomyositis; Dinesh Arguello MD Candidal intertrigo; [address] [place] [facility] [place]ness of [place] [address] [facility] [place] [address] Social History Tobacco Use Types Packs/Day Years Used Date Former Smoker Cigarettes 0.25 7 Quit: 02/07/19 76 Smokeless Tobacco: Never Used Alcohol Use Standard Drinks/Week Comments No 0 (1 standard drink = 0.6 oz pure alcoho l) Sex Assigned at Date Recorded Female 03/23/2021 8:16 AM EDT documented as of this encounter Progress Notes Dee Burroughs MD - 01/24/2022 11:30 AM EST Images from the original note were not included. DEPARTMENT OF DERMATOLOGY Dermatology-Rheumatology Specialty Clinic Provider: DEE BURROUGHS MD Visit conducted in conjunction with Savi Herron MD of Rheumatology. Please see her same-day medical note Date of Service: 01/24/2022 Preferred name Brandi Preferred contact method for [...] very specific or diagnostic. Relevant diagnostic labs (+) JANETH 1:160 Weakly positive anti-LORI-1 antibody RF mildly elevated, elevated CRP CK WNL Imaging, additional workup/studies 05/19/19:?Lesions in the liver based on??CT??scan of chest/abdomen/pelvis 06/02/19, 09/01/19, 06/20/21:??MRI of right lower extremity??negative [...] in anemia. Consider clinical correlation if indicated. Previous treatments Diclofenac gel Synalar solution Plaquenil (04/2019-07/2021) Current treatments Meloxicam, 12/28/20-present Methotrexate 20 mg weekly + folic acid daily Triamcinolone ointment Hydroxychloroquine 200 mg BID Malignancy screening (dermatomyositis only) 05/30/19: PET scan, soft tissue density in the anterior uterine wall suggestive of a fibroid 02/11/20: PFT - normal 08/2020: mammogram 06/20/21: transvaginal US, fibroid uterus, otherwise normal HPI Brandi Ruiz is a 66 y.o. seen today in the Dermatology-Rheumatology clinic for continued management of dermatomyositis. Last seen in this clinic: 11/01/21 - Condition better/worse/stable: Worse - Interval changes in health: diagnosed with macular degermation and had stress test (noted below) - Relevant medications: - Methotrexate 20 mg weekly (stopped 6 weeks ago due to possible yeast infection) - Hydroxychloroquine 200 mg BID (stopped 5-7 days ago, macular degeneration and SOB) - Gabapentin 100 mg daily BID - Meloxicam 15 mg daily - Fluocinolone solution PRN (rarely) - Triamcinolone ointment PRN (occasionally at night when itchy) - Medication sfx?: ? Macular degeneration and SOB she believes to be 2/2 plaquenil - Last labs: 11/01/21 (CBC, LFTs, CK essentially WNL) - Specific concerns today: - Patient notes that she was diagnosed with macular degeneration in her right eye and there is discussion of treating this with an injection. Questions whether this is related to the Plaquenil. - She has been experiencing SOB for a couple of months. Coughs occasionally. She underwent an ultrasound stress test yesterday, which showed mildly enlarge right atrium, very enlarged left atrium, and she lynn an episode of SVT 4 minutes into the test per patient report. She is concerned that the Plaquenil is causing these problems, and she stopped this medication 5-7 days ago. She will be seeing an EP, but it has not been scheduled yet. - She discontinued taking methotrexate 6 weeks ago as she had flaring yeast infections. Since stopping, the yeast infection has improved but has not resolved. She was seen by her [employer] provider, who was concerned that the burning sensation she was experiencing was related to hormones rather than a yeast infection. She was prescribed estradiol cream, which has helped. She continues to have issues with yeast in the inguinal folds, which she treats with clotrimazole. - Rash along the eyelids that she noticed a couple of weeks ago. The rash is asymptomatic and she has not attempted to treat it. Medications: Reviewed in eD-H Allergies: Reviewed in eD-H PMH: Amyopathic dermatomyositis Bilateral knee replacement Hypothyroidism Anxiety Anemia Mild asthma ROS: General: Feeling well Skin: Denies other skin complaints Exam: General: NAD, pleasant, cooperative Skin Examination: A focused skin examination of the chest, scalp, upper extremities, neck, back, and groin, significant for the following: Assessment/Plan: A.??Dermatomyositis - flaring off treatment. Exam shows Violaceous patches on the right and left upper eyelids (Figure 1). Increased patchy erythema of the upper arms and forearms (Figure 2 and 3). Focal dilation of the left 2nd and 3rd nailfold capillaries. Vona scaly papules on the upper chest. - Reviewed labs from 11/01/21. - Will defer restarting treatment pending cardiology and pulmonary workup. Discontinue hydroxychloroquine and methotrexate. - Discontinue meloxicam, as it is unclear if it is beneficial. - Continue Rx fluocinolone (Synalar) 0.01% solution: Apply topically to scalp/ears 1-2x/day for up to 2 weeks when flaring; then use 2-3x/week for maintenance. May apply at night and wash out in morning.?? - Continue Rx triamcinolone ointment. - PFTs ordered. B. Candidal Intertrigo - Red plaques with satellite pustules on the inguinal folds. - Start Rx hydrocortisone 2.5% cream - Start Rx ketoconazole 2% cream Instructions: Mix equal amounts of both creams and apply mixture topically to affected areas on the inguinal folds twice daily for 2 weeks as needed. Figure 1 Figure 2 Figure 3 Photo(s) taken and charted with patient's verbal consent. Follow Up: RTC in 1 month in: [x] Dermatology-Rheumatology clinic [] Dr. Burroughs dermatology clinic [] Dr. Herron rheumatology clinic in [place] [x] Reminder placed in system [] Appointment scheduled before exiting 35 minutes associated with visit, chart review, interdisciplinary discussion with Dr. Herron, documentation, and coordination of care. Yuliana Barboza and Karmen Tijerina CMA have performed the documentation for this encounter in the presence of and acting as scribes for DEE BURROUGHS MD. I performed the above scribed service and agree with the accuracy of the documentation in this encounter. Dee Burroughs MD [facility] of Dermatology Department of Dermatology [facility] cc: Samantha Michelle MD documented in this encounter Plan of Treatment Upcoming Encounters Date Type Specialty Care Team Description 09/26/2022 Office Visit Dermatology Dee Burroughs MD [facility] [address] [place], [place] [address] (Wo rk) 10/02/2022 Office Visit Pulmonology Laney Calhoun M D [facility] Pulmonary Medici hillary [place], [place] [address] (Wo rk) 11/07/2022 Office Visit Ophthalmology Gifty Bernal MD [facility] [place], [place] [address] (Wo rk) Scheduled Orders Name Type Priority Associated Diagnoses Order S chedule Pulmonary Function PFT Routine Shortness of breath on Expected: 01/25/2022, Testing exertion Expires: 2021 documented as of this encounter Visit Diagnoses Diagnosis Dermatomyositis Candidal intertrigo Candidiasis of skin and nails Shortness of breath on exertion Shortness of breath documented in this encounter Care Teams Wastewater Engineer Relationship Specialty Start Date End Date Samantha Michelle MD PCP - General 09/14/11 [address] [place] [address] documented as of this encounter
--- OUTSIDE RECORDS SUMMARY | 2022-09-15 01:24 | XMS_ITS | Encounter Summary ---
:1955 Author Organization [place] [id number] Care Team Providers Name Role Phone Samantha Michelle MD Primary Care Provider Encounter Details Date Type Department Care Team Description 05/09/2022 Hospital Encounter Non-Invasive Carlos Alberto Benton, Atrial fibrillation, Cardiology Lab Bessy FREEMAN unspecified type [place], [place] [id number] [place] [address] [phone] (Work) [phone] Social History Tobacco Use Types Packs/Day Years [...] (Temovate) 0.05 prn 0 2 % Ointment levalbuteroL (XOPENEX HFA) Prn 0 2 45 mcg/actuation HFA Aerosol Inhaler SUMAtriptan (Imitrex) 25 prn 0 03/24/2022 mg Tablet budesonide-formoteroL Inhale 2 puffs into 1 each 12 04/12 (Symbicort) 160-4.5 the lungs 2 times mcg/actuation HFA Aerosol daily. Use with InhalerIndications: spacer. Moderate persistent asthma, unspecified whether complicated inhalational spacing Use as directed 1 each 2 04/12/2022 device (Huber Aerosol Sully with symbicort. Enhancer) SpacerIndications: Moderate persistent asthma, unspecified whether complicated meloxicam (MOBIC) 15 mg Take 1 tablet [...] Visit Dermatology Ambreen Burroughs MD [facility] ER [address] [place] [address] (Wo rk) 10/02/2022 Office Visit Pulmonology Laney Calhoun M D [facility] er Pulmonary Medicguido thornton [place], [place] [address] (Wo rk) 11/07/2022 Office Visit Ophthalmology Gifty Bernal MD [facility] [place], [place] [address] (Wo rk) documented as of this encounter Procedures Procedure Name Priority Date/Time Associated Comments Diagnosis ILR INTERROGATION 1 Routine 05/09/2022 10:48 Atrial Resu lts for this MONTH AM EDT fibrillation, procedure are in unspecified type the results section. documented in this encounter Results ILR INTERROGATION 1 MONTH (05/09/2022 10:48 AM EDT) Anatomical Region Laterality Modality Other Specimen (Source) Anatomical Location Collection Method / Collectio n Time Received Time / Laterality Volume Narrative 06/02/2022 11:32 AM EDT Cardiac Electrophysiology Implantable Loop Recorder (ILR) Remote Monitoring Interpretation Transmission Date: 05/09/22 Device Type: Implantable Loop Recorder Global Marketing Operations Manager: [employer] Implanted: 02/07/22 Indication: Suspected AF Battery Status: OK Events/Arrhythmias noted since last rese t Symptom: 4 April 20, 2022 15:31 (Heart Racing) 10 jose ts of abrupt increase in atrial rate with 1:1 conduction before returnin g to SR April 18, 2022 14:50 (Fluttering) 6 beats of abrupt onset of irregular narrow complex rhythm before abrupt retu rn to SR Feb 14, 2022 20:53 (Fluttering) SR with PACs Feb 07, 2022 09:31 (Pause with symptoms) IMPLANT TEST Tachy (? 170 bpm, > 5 s): 0 Bradycardia (<30 BPM x 3 seconds):0 Asystole (<20 BPM): 2 Feb 07, 2022 09:11 IMPLANT SVT/AT/other : 0 Atrial Fibrillation / Flutter: 0 Presenting ECG- SR 76bpm Impression: Normally functioning device Symptomatic non-sustained atrial ectopy Linda Tyler PA-C Cardiac Electrophysiology Carlos Alberto Benton MD IMPLANTABLE CARDIAC DEVICE documented in this encounter Visit Diagnoses Diagnosis Atrial fibrillation, unspecified type documented in this encounter Care Teams Office Employee Relationship Specialty Start Date End Date Samantha Michelle MD PCP - General 09/14/11 [address] [place] [address] documented as of this encounter
--- OUTSIDE RECORDS SUMMARY | 2022-09-15 01:24 | XMS_ITS | Encounter Summary ---
:1955 Author Organization [facility] [place] [address] Care Team Providers Name Role Phone Samantha Michelle MD Primary Care Provider Encounter Details Date Type Department Care Team Description 02/10/2022 Telephone Pulmonology at [facility] [place] [address] Social History Tobacco Use Types Packs/Day [...] [facility] [address], [place] [address] (Wo rk) 10/02/2022 Office Visit Pulmonology Laney Calhoun M D [facility] Pulmonary Mati thornton [place], [place] [address] (Wo rk) 11/07/2022 Office Visit Ophthalmology Gifty Bernal MD [facility] Dr [place], [place] [address] (Wo rk) documented as of this encounter Visit Diagnoses Not on filedocumented in this encounter Care Teams Violent Crimes Detective Relationship Specialty Start Date End Date Samantha Michelle MD PCP - General 09/14/11 [address] [place] [address] documented as of this encounter
--- OUTSIDE RECORDS SUMMARY | 2022-09-15 01:24 | XMS_ITS | Encounter Summary ---
:1955 Author Organization [facility] [place] [address] Care Team Providers Name Role Phone Samantha Michelle MD Primary Care Provider Encounter Details Date Type Department Care Team Description 01/25/2022 Orders Only Cardiology at [facility] Larry Cedillo, PAF (paroxysmal atrial [facility] fibrillation) (Primary [address] [facility] [place]) [place] [phone] CARDIOLOGY DEPT [place], [place] [address] Social History Tobacco Use Types [...] [facility] SHAY[facility], [place] [address] (Wo rk) 10/02/2022 Office Visit Pulmonology Laney Calhoun M D [facility] Pulmonary Medicguido thornton [place], [place] [address] (Wo rk) 11/07/2022 Office Visit Ophthalmology Gifty Bernal MD [facility] er [place] [address] (Wo rk) Scheduled Orders Name Type Priority Associated Diagnoses Order S chedule EKG 12 Lead ECG Routine PAF (paroxysmal atrial As Ne eded for 6 Occurrences fibrillation) starting 01/26 until 01/25/2023, 1 c ompleted documented as of this encounter Results EKG 12 Lead (01/26/2022 1:23 PM EST) [facility] gist Method Time Signature Ventricular rate 87 BPM MUSE SYSTEM Atrial Rate 87 BPM MUSE SYSTEM P-R Interval 150 ms MUSE SYSTEM QRS Duration 110 ms MUSE SYSTEM Q-T Interval 374 ms MUSE SYSTEM QTC Calculated 450 ms MUSE SYSTEM (Bezet) Calculated P [place] 59 degrees MUSE SYSTEM Calculated R [place] 18 degrees MUSE SYSTEM Calculated T [place] 52 degrees MUSE SYSTEM INTERPRETATION Normal sinus rhythm MUSE SYSTEM Incomplete right bundle branch block Borderline ECG No previous ECGs available Confirmed by MD BREEZY, WOLFGANG ([id number]) on 01/27/2022 1:58:04 PM Specimen Anatomical Collection Method Collection Time Receive d Time (Source) Location / / Volume Laterality 01/26/2022 1:23 PM 2 1:58 EST PM EST Carlos Alberto Benton MD ECG ORDERABLES Performing Organization Address City/State/ZIP Code Phon e Number MUSE SYSTEM documented in this encounter Visit Diagnoses Diagnosis PAF (paroxysmal atrial fibrillation) - P rimary Atrial fibrillation documented in this encounter Care Teams Certified Surgical First Assistant Relationship Specialty Start Date End Date Samantha Michelle MD PCP - General 09/14/11 [address] [place] [address] documented as of this encounter
--- OUTSIDE RECORDS SUMMARY | 2022-09-15 01:25 | XMS_ITS | Encounter Summary ---
:1955 Author Organization [place] [address] Care Team Providers Name Role Phone Samantha Michelle MD Primary Care Provider Reason for Visit Reason Comments Follow-up Dermatology-Rheumatology Cli simona Encounter Details Date Type Department Care Team Description 12/28/2020 [facility] Dinesh FREEMAN [address] [place] [address] [facility] [place], [place] [address] (Wo rk) Social History Tobacco Use Types Packs/Day Years Used Date Former Smoker Cigarettes 0.25 7 Quit: 02/07/19 75 Smokeless Tobacco: Never Used Alcohol Use Standard Drinks/Week Comments No 0 (1 standard drink = 0.6 oz pure alcoho l) Sex Assigned at Date Recorded Female 03/23/2021 8:16 AM EDT documented as of this encounter Progress Notes Ambreen Burroughs MD - 12/28/2020 1:00 PM EST DERMATOLOGY-RHEUMATOLOGY SPECIALTY CLINIC TELEHEALTH NOTE Date of Service: 12/28/2020 Milana Ruiz : 1955 Provider: Ambreen Burroughs MD Visit conducted in conjunction with Savi Herron MD, of Rheumatology Please see her same-day medical note Chief Complaint Patient presents with ??? 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 [...] may be seen in viral exanthem or drug reaction. Clinicopathologic correlation is recommended. Relevant diagnostic labs (+) JANETH 1:160 Weakly positive anti-LORI antibody RF mildly elevated, elevated CRP Imaging, additional workup/studies -??05/19/19: ???Lesions in the liver based on??CT??scan of chest/abdomen/pelvis - 05/19/19: CT - 06/02/19 and 09/01/19: MRI of right lower extremity??negative for myositis, but did show a soft tissue mass??- seen by ortho 10/2019 - 05/30/19: PET scan, soft tissue density in the anterior uterine wall suggestive of a fibroid ??- 02/11/20: PFT - normal - Mammogram: 08/2020 - Pending transvaginal ultrasound Previous treatments Triamcinolone ointment Current treatments Plaquenil since 04/2019 Malignancy screening (dermatomyositis only) Patient Preferences Preferred name Milana Preferred contact method [] Home [] Cell [x] myD-H [] Other: Permission to leave detailed message including results [x] Yes [] No Permission to discuss care with N/A Preferred pharmacy [facility] DARIA Milana Ruiz is a 65 y.o. female, established patient, seen today in the Dermatology-Rheumatology clinic in follow up for dermatomyositis. Last seen in this clinic: 09/28/20 - Condition better/worse/stable: Stable - Interval changes in health: None - Relevant medications: - Plaquenil 600 mg daily - Gabapentin 300 mg daily - Diclofenac (oral) 75 mg 3-4x daily - Medication sfx?: Stomach cramps after increasing Plaquenil - Refills requested: Plaquenil - Last labs: 09/28/20 - Specific concerns today: - Using fluocinolone solution for her scalp with some improvement. - Fatigue; patient is wondering if there is anything that could help with it. She is sleeping well, but does not wake up feeling rested. She has sleep apnea but uses her CPAP every night. - Muscle pain from her back down through the back of her legs. It hurts to sit for a long period of time. She has tried using heat, warm baths, stretching, and exercising without improvement. - She received her COVID vaccine about a month ago. MEDS Current Outpatient Medications Medication Sig Dispense Refill ??? diclofenac EC (Voltaren) 75 mg Tablet, Delayed Release (E.C.) Take 1 tablet by mouth 2 times daily as needed (Joint pains). 180 tablet 0 ??? fluocinolone acetonide (SYNALAR) 0.01 % Solution Apply topically to scalp 1- 2x day for 2 weeks when flaring then use 2-3x week for maintenance. 90 mL 3 ??? hydrOXYchloroQUINE (Plaquenil) 200 mg Tablet Take 1 tablet by mouth 3 times daily. Indications: dermatomyositis 270 tablet 0 ??? hydroxychloroquine (Plaquenil) 200 mg Tablet Take 1 tablet by mouth 2 times daily. 60 tablet 3 ??? fluticasone furoate-vilanteroL (Breo Ellipta) 200-25 mcg/dose Disk with Device Inhale 1 puff into the lungs daily. 1 each 5 ??? fluticasone propionate (FLONASE) 50 mcg/actuation [place], Suspension 2 sprays by Each Nare route daily. 1 each 3 ??? gabapentin (NEURONTIN) 300 mg Capsule TK 1 C PO QD X 1 DAY THEN 1 C BID X 1 DAY THEN 1 C TID THEREAFTER ??? polyethylene glycol (MIRALAX) 17 gram Powder in Packet Take 17 g by mouth daily. ??? ALPRAZolam (XANAX) 0.25 mg Tablet Take 0.25 mg by mouth as needed. 1 ??? triamcinolone (KENALOG) 0.1 % Ointment Apply to affected areas on arms twice daily for 10-14 days. Take 5-7 days off and repeat as needed 454 g 1 ??? levothyroxine (SYNTHROID) 125 mcg Tablet [...] No current facility-administered medications for this visit. ADR Allergies Allergen Reactions ??? Ceclor [Cefaclor] Hives ??? Pcn [Penicillins] Anaphylaxis ??? Phenergan [Promethazine] Anaphylaxis ??? Preservative Anaphylaxis Sulfites ??? Sulfite ??? Vancomycin Hives [facility] Patient Active Problem List Diagnosis Code ??? Anemia D64.9 ??? Hypothyroidism E03.9 ??? Anxiety F41.9 ??? SVT (supraventricular tachycardia) I47.1 ??? Hypothyroid E03.9 ??? History of basal cell carcinoma Z85.828 ??? History of bilateral knee replacement Z96.653 ??? Mild intermittent asthma, uncomplicated J45.20 ROS General: Feeling well Skin: Denies other skin complaints EXAM (no examination performed) Constitutional: Patient was alert, well-appearing and in no noticeable distress. Significant Skin Findings: A. Patient describes erythema and scaling on the scalp, improved from last visit. ASSESSMENT/PLAN A. Dermatomyositis - Decrease Rx Plaquenil to 200 mg PO BID given intolerance and lack of improvement on higher dose - Continue Rx fluocinolone (Synalar) 0.01% solution: Apply topically to scalp/ears 1-2x/day for up to 2 weeks when flaring; then use 2-3x/week for maintenance. May apply at night and wash out in morning. - Start meloxicam (prescribed by Dr. Herron) - Continue diclofenac. - Dr. Herron will reach out to Dr. Martin to discuss re-imaging the right thigh. - Malignancy screening: transvaginal ultrasound, PET/CT (pending Dr. Herron's discussion with Dr. Martin) Follow Up: RTC in 3 months in: [x] Dermatology-Rheumatology clinic [] Dr. Burroughs dermatology clinic [] Dr. Herron rheumatology clinic in [place] [x] Reminder placed in system [] Appointment scheduled before exiting 35 minutes spent in chart review, visit, interdisciplinary discussion with Dr. Herron, coordination of care and documentation Note initiated by: LAITH Barnett Scribe documenting this encounter for and in the presence of Dr. Burroughs: Yuliana Barboza I performed the above scribed service and agree with the accuracy of the documentation in this encounter. Ambreen Burroughs MD Shelf Stocker of Dermatology Department of Dermatology [facility] cc: Samantha Michelle MD documented in this encounter Plan of Treatment Upcoming Encounters Date Type Specialty Care Team Description 09/26/2022 Office Visit Dermatology Ambreen Burroughs MD [facility] DR SHAYY CASTILLO-DERMAT [place], [place] [address] (Wo rk) 10/02/2022 Office Visit Pulmonology Laney Calhoun M D [facility] Pulmonary Medicguido thornton [place], [place] [address] (Wo rk) 11/07/2022 Office Visit Ophthalmology Gifty Bernal MD [facility] [place], [place] [address] (Wo rk) documented as of this encounter Results US Transvaginal Non OB (06/20/2021 2:01 PM EDT) Anatomical Region Laterality Modality Ultrasound Specimen (Source) Anatomical Collection Method Collection Time Re ceived Time Location / / Volume Laterality 06/20/2021 1:34 PM EDT Impressions 06/20/2021 2:12 PM EDT 1. There is fluid in the endometrial ca nal 2. Fibroid uterus 3. Normal ovaries. Thank you for letting us participate in the care of this patient. ??If you are a health care provider and have any quest ions regarding this report, please contact the number below. ??For patient s who have questions please contact the health laboratory animal care veterinarian that requested your imaging first. Electronically signed by: Julita carver MD, [facility] ([phone]), at 2:04 PM Thank you for letting us participate in the care of this patient. If you are a health care provid er and have any questions regarding this report, please contact the number below. For patients who have ques tions, please contact the health care professio nal that requested your imaging first. ??Julita Hook, RECYCLING MANAGER [facility] & Dept Chair - Rad Electronically Signed Final Report ?? 02:12 pm Narrative 06/20/2021 2:12 PM EDT Gynecological Report ?(Signed Final 06/20/2021 02:12 pm) PATIENT INFO: ID #: ? [id number] ?: ??[birth year] (66 yrs)(F) Name: ? MILANA RUIZ ? Visit Date: 06/20/2021 01:34 pm PERFORMED BY: Performed By: ? Magi Yeager RDMS Attending: ?Monster FREEMAN, Corona Erickson Referred By: ?AMBREEN Arguello BURROUGHS Location: ? [place] SERVICE(S) PROVIDED: UTV - Transvaginal - [id number] ?[id number] UPELIM - Pelvis Limited - [id number] ? [id number] INDICATIONS: Lobular heterogeneous uterus in pt with dermatomyositis (which may be associate d with malignancy), previous abnormal fin ding on CT, U/S recommended TECHNIQUE/SCAN QUALITY: Technique: ?Transducer ID#:[id number] COMPARISON: Prior CT 05/19/19 -------- HISTORY: -------- Age: ?? 66 PREVIOUS PELVIC SURGERY: Ablation, Salpingectomy left due to ect opic . VITAL SIGNS: Weight (lb): 310.0 Height: ?5'9 ?BMI: ?45.77 ------- UTERUS: ------- Uterus: ? Visualized Position: ?? Anteverted Size (cm) ?L: ??9.7 ? W: ?? 5.6 ?H: ??5.1 ------- MYOMAS: ------- Site ? L(cm) ? W(cm) ? D(cm) ? Location Left Lateral ? 3.0 ? 2 .6 ? 2.1 ? Intramural Posterior ?0.7 ? 0.8 ? 0.5 ? Intramural Blood Flow ?RI ? PI ?Comments ENDOMETRIUM: Thickness(mm): ?2.2 single la rosy RIGHT OVARY: Status: ?? Visualized Size (cm) ?L: ??1.8 ? W: ?? 1.3 ?H: ??1.0 Vol (ml): ?1.2 Morphology: ?Normal appearance LEFT OVARY: Status: ?? Visualized Size (cm) ?L: ??2.0 ? W: ?? 1.5 ?H: ??1.5 Vol (ml): ?2.4 Morphology: ?Normal appearance Comment: ? Ovary was not seen trans vaginally, therefore ?transabdominal ultr asound was performed. Procedure Note Julita Hook MD - 06/20/2021Form atting of this note might be different from the original. Gynecological Report (Signed Final 05/27 02:12 pm) PATIENT INFO: ID #: [id number] : [birth year] (66 y rs)(F) Name: MILANA RUIZ Visit Date: 2020 01:34 pm PERFORMED BY: Performed By: Magi Yeager RDMS Attending: Julita Hook MD Referred By: AMBREEN BURROUGHS Location: [place] SERVICE(S) PROVIDED: UTV - Transvaginal - [id number] UPELIM - Pelvis Limited - [id number] INDICATIONS: Lobular heterogeneous uterus in pt with dermatomyositis (which may be associate d with malignancy), previous abnormal fin ding on CT, U/S recommended TECHNIQUE/SCAN QUALITY: Technique: Transducer ID#:[id number] COMPARISON: Prior CT 05/19/19 -------- HISTORY: -------- Age: 66 PREVIOUS PELVIC SURGERY: Ablation, Salpingectomy left due to ect opic . VITAL SIGNS: Weight (lb): 310.0 Height: 5'9 BMI: 45.77 ------- UTERUS: ------- Uterus: Visualized Position: Anteverted Size (cm) L: 9.7 W: 5.6 H: 5.1 ------- MYOMAS: ------- Site L(cm) W(cm) D(cm) Location Left Lateral 3.0 2.6 2.1 Intramural Posterior 0.7 0.8 0.5 Intramural Blood Flow RI PI Comments ENDOMETRIUM: Thickness(mm): 2.2 single layer RIGHT OVARY: Status: Visualized Size (cm) L: 1.8 W: 1.3 H: 1.0 Vol (ml): 1.2 Morphology: Normal appearance LEFT OVARY: Status: Visualized Size (cm) L: 2.0 W: 1.5 H: 1.5 Vol (ml): 2.4 Morphology: Normal appearance Comment: Ovary was not seen transvagina lly, therefore transabdominal ultrasound was performed . IMPRESSION 1. There is fluid in the endometrial ca nal 2. Fibroid uterus 3. Normal ovaries. Thank you for letting us participate in the care of this patient. If you are a health care provider and have any quest ions regarding this report, please contact the number below. For patients who have questions please contact the health laboratory animal care veterinarian that requested your imaging first. Electronically signed by: Julita carver MD, [facility] ([phone]), at 2:04 PM Thank you for letting us participate in the care of this patient. If you are a health care provid er and have any questions regarding this report, please contact the number below. For patients who have ques tions, please contact the health care professio nal that requested your imaging first. Julita Hook [facility] & Dept C hair - Rad Electronically Signed Final Report 06/20 02:12 pm Ambreen Burroughs MD IMG US PELVIC ORDERABLES documented in this encounter Visit Diagnoses Diagnosis Dermatomyositis Dermatomyositis documented in this encounter Care Teams Waste Management Recycling Technician Relationship Specialty Start Date End Date Samantha Michelle MD PCP - General 09/14/11 [address] [place] [address] documented as of this encounter
--- OUTSIDE RECORDS SUMMARY | 2022-09-15 01:25 | XMS_ITS | Encounter Summary ---
:1955 Author Organization [facility] [place] [address] Care Team Providers Name Role Phone Samantha Michelle MD Primary Care Provider Encounter Details Date Type Department Care Team Description 12/30/[address] [facility] Ambreen Burroughs MD [address] [place] [address] [facility] [phone] [place], [place] [address] (Wo rk) Social History Tobacco [...] Notes Telephone Encounter - Lisset Escoto - 12/30/2020 11:30 AM EST I left a voicemail for Brandi Ruiz requesting a call back to schedule derm/rheum follow up in March. Telephone Encounter - Lisset Escoto - 12/30/2020 11:30 AM EST ----- Message from Yuliana Barboza sent at 12/28/2020 1:42 PM EST ----- 3 months in derm rheum clinic documented in this encounter Plan of Treatment Upcoming Encounters Date Type Specialty Care Team Description 09/26/2022 Office Visit Dermatology Ambreen Burroughs MD [facility] DR SHAYY CASTILLO-DERMAT [place], [place] [address] (Wo rk) 10/02/2022 Office Visit Pulmonology Laney Calhoun M D [facility] Pulmonary Medici [place], [place] [address] (Wo rk) 11/07/2022 Office Visit Ophthalmology Gifty Bernal MD [facility] [place], [place] [address] (Wo rk) documented as of this encounter Visit Diagnoses Not on filedocumented in this encounter Care Teams Outreach Counselor Relationship Specialty Start Date End Date Samantha Michelle MD PCP - General 09/14/11 [address] [place] [address] documented as of this encounter
--- OUTSIDE RECORDS SUMMARY | 2022-09-15 01:25 | XMS_ITS | Encounter Summary ---
:1955 Author Organization [facility] [place] [address] Care Team Providers Name Role Phone Samantha Michelle MD Primary Care Provider Encounter Details Date Type Department Care Team Description 06/07/2021 Office Visit Dermatology at [facility] Savi Herron MD Amyopathic dermatomyositis; [address] Encounter for long-term (current) use of high-risk medication; [address] [place] [address] [place], [place] [phone] Social History Tobacco Use Types Packs/Day Years Used Date Former Smoker Cigarettes 0.25 7 Quit: 02/07/19 76 Smokeless Tobacco: Never Used Alcohol Use Standard Drinks/Week Comments No 0 (1 standard drink = 0.6 oz pure alcoho l) Sex Assigned at Date Recorded Female 03/23/2021 8:16 AM EDT documented as of this encounter Progress Notes Savi Herron MD - 06/07/2021 3:30 PM EDT Brandi Ruiz is seen in the dermatology/rheumatology clinic for follow-up of dermatomyositis. She was last seen in Dec 2020. 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 Methotrexate, 15 mg, was added at our last visit on March 29, 2021. She also has musculoskeletal pain that [...] 2020 helped significantly with her joint pain. She still had pain in the upper arms in the muscles when last seen in March 2021. The patient's MRI from 09/01/2019 demonstrated a cystic structure in the right vastus lateralis muscles as well as a heterogeneous marrow signal in the distal femoral shaft. A PET CT scan From May 2012noted uptake in the uterus and a transvaginal ultrasound was recommended and ordered. Both studies are scheduled for June 20, 2021. The patient reports that the addition of methotrexate has probably helped with her musculoskeletal pain in the arms but has not made a significant improvement in her rash over the arms and anterior chest. She does feel that she has more energy and has better stamina. She noted to me that she thought her muscles were 25% better. She is tolerating this medication well although has had several canker sores. She does bring to our attention a right forearm lump just above the wrist that she thinks is a lipoma but wants us to look at it. The patient reports that she has had a number of dental issues since last seen. She has needed 3 extractions due to a abscessed tooth, a broken [place] and a deep filling that would probably not hold. She has been on 2 courses of antibiotics and earlier today had a tooth extraction and bone graft. The patient notes that in her life [facility] During that tripher 6-year-old grandson contacted JOSHUAID-19 but the rest of the family was vaccinated and did not getill. Her last year was diagnosed with large B-cell lymphoma and actually has done very well with treatment. He is currently doing a 12-week employment with his [employer] in [facility]. On physical exam Brandi looks well. The rash on her arms is unchanged with pink plaques on the upper and lower arms as well as minimal pinkness of the anterior chest. Her nailfold capillaries are minimally abnormal on the left second and fourth digit. There is a ill-defined subcutaneous mass on the right forearm just proximal to the wrist. It is soft and nontender consistent with a lipoma. Recent Results (from the past 24 hour(s)) Comprehensive metabolic panel (non-fasting) Result Value Ref Range Glucose Lvl 108 65 - 199 mg/dL BUN 13 8 - 18 mg/dL Creatinine 0.65 (L) 0.70 - 1.20 mg/dL Sodium 140 135 - 145 mmol/L Potassium 4.6 3.5 - 5.0 mmol/L Chloride 102 98 - 107 mmol/L CO2 27 22 - 31 mmol/L Anion Gap 11 5 - 15 mmol/L Calcium 10.8 (H) 8.5 - 10.5 mg/dL Total Protein 7.7 6.1 - 8.0 gm/dL Albumin 4.5 3.2 - 5.2 gm/dL AST 16 0 - 30 unit/L ALT 14 0 - 30 unit/L Alk Phos 106 (H) 35 - 105 unit/L Total Bilirubin 0.3 0.2 - 1.3 mg/dL Estimated GFR 93 >=60 mL/min/1.73 m?? Hemogram Result Value Ref Range WBC 10.5 (H) 4.0 - 9.5 x10(3)/mcL RBC 4.81 4.00 - 5.21 x10(6)/mcL Hemoglobin 12.2 11.7 - 15.5 gm/dL Hematocrit 39.4 35.7 - 45.8 % MCV 81.9 (L) 82.6 - 94.4 fL MCH 25.4 (L) 27.1 - 32.0 pg MCHC 31.0 (L) 31.7 - 35.0 gm/dL Platelets 276 145 - 357 x10(3)/mcL RDWSD 55.5 (H) 37.0 - 46.0 fL RDWCV 18.7 (H) 11.5 - 14.1 % MPV 10.1 7.6 - 12.9 fL nRBC % Auto 0.0 % nRBC Abs Auto 0.000 0.000 - 0.000 x10(3)/mcL Differential, Automated Result Value Ref Range Neutrophils % 70.5 % Neutr Abs (ANC) 7.41 (H) 1 - 6 x10(3)/mcL Lymphocytes % 19.9 % Lymphocytes Abs 2.1 0.9 - 3.2 x10(3)/mcL Monocytes % 5.1 % Monocyte Abs 0.5 0.3 - 0.9 x10(3)/mcL Eosinophils % 3.6 % Eosinophils Abs 0.4 0.0 - 0.4 x10(3)/mcL Basophils % 0.3 % Basophils Abs 0.0 0.0 - 0.1 x10(3)/mcL Immature Gran % 0.60 % Kavitha Gran Abs 0.06 (H) 0.00 - 0.04 x10(3)/mcL These laboratory tests show no hematologic or hepatic toxicity from the methotrexate. A discussion between the dermatology and rheumatology team ensued with the patient. We feel that based on the improvement that she has had on 15 mg of methotrexate that we would increase to 20 mg takenin divided dose. She will need laboratory tests done in 6 weeks looking for drug toxicity and we will see her again in July. An unexpected finding was an elevated calcium of 10.8. This has gradually increased from 10 back in January 2020. The patient is not on hydrochlorothiazide. We will consider doing a PTH level at her nextappointment. This note was created with [employer] voice recognition software. Although I try to proofread carefully,there may be errors in the customs entry clerk. If you have any questions or concerns, please contact me for verification and correction. Thank you. documented in this encounter Plan of Treatment Upcoming Encounters Date Type Specialty Care Team Description 09/26/2022 Office Visit Dermatology Ambreen Burroughs MD [facility] DR SHAYY CASTILLO-DERMAT [place], [place] [address] (Ashvin disla) 10/02/2022 Office Visit Pulmonology Laney Calhoun M D [facility] Pulmonary Mati thornton [place], [place] [address] (Ashvin disla) 11/07/2022 Office Visit Ophthalmology Gifty Bernal MD [facility] [place], [place] [address] (Wo rk) documented as of this encounter Visit Diagnoses Diagnosis Amyopathic dermatomyositis Dermatomyositis Encounter for long-term (current) use of high-risk medication Encounter for long-term (current) use of other medications Hypercalcemia documented in this encounter Care Teams Roll Handler Relationship Specialty Start Date End Date Samantha Michelle MD PCP - General 09/14/11 [address] [place] [address] documented as of this encounter
--- OUTSIDE RECORDS SUMMARY | 2022-09-15 01:25 | XMS_ITS | Encounter Summary ---
:1955 Author Organization [facility] [place] [address] Care Team Providers Name Role Phone Samantha Michelle MD Primary Care Provider Reason for Visit Reason Onset Date Comments Medication Refill 05/25/2020 Encounter Details Date Type Department Care Team Description 05/25/2020 Refill Rheumatology at [facility] Cuba Martin MD [facility] [place] [address] [place] [address] [phone] (Wo rk) Social History Tobacco Use Types Packs/Day Years Used Date Former Smoker Cigarettes 0.25 7 Quit: 02/07/19 76 Smokeless Tobacco: Never Used Alcohol Use Standard Drinks/Week Comments No 0 (1 standard drink = 0.6 oz pure alcoho l) Sex Assigned at Date Recorded Female 03/23/2021 8:16 AM EDT documented as of this encounter Miscellaneous Notes Telephone Encounter - Sariah Puldio LPN - 05/26/2020 8:17 AM EDT Rx refill request: Diclofenac EC (Voltaren) 75 mg tablet Patient requests 3 month supply Last office visit: 02/06/2020 - pt to return in 3 months. See My message from yesterday. Last refill: 01/02/2020 Sariah pulido LPN documented in this encounter Plan of Treatment Upcoming Encounters Date Type Specialty Care Team Description 09/26/2022 Office Visit Dermatology Ambreen Burroughs MD [facility] [address]-DERMAT [place], [place] [address] (Wo rk) 10/02/2022 Office Visit Pulmonology Laney Calhoun M D [facility] Pulmonary Medici [place], [place] [address] (Wo rk) 11/07/2022 Office Visit Ophthalmology Gifty Bernal MD [facility] [place], [place] [address] (Wo rk) documented as of this encounter Visit Diagnoses Not on filedocumented in this encounter Care Teams Factory Assembler Relationship Specialty Start Date End Date Samantha Michelle MD PCP - General 09/14/11 [address] [place] [address] documented as of this encounter
--- OUTSIDE RECORDS SUMMARY | 2022-09-15 01:25 | XMS_ITS | Encounter Summary ---
:1955 Author Organization [place] [address] Care Team Providers Name Role Phone Samantha Michelle MD Primary Care Provider Reason for Visit Reason Comments Follow-up dermatomyositis Encounter Details Date Type Department Care Team Description 09/28/2020 Office Visit Dermatology at Ambreen Fernandes, [address]erm[address] [facility] [place] [address] [facility] [phone] [place], [place] [address] (Wo rk) Social History Tobacco Use Types Packs/Day Years Used Date Former Smoker Cigarettes 0.25 7 Quit: 02/07/19 76 Smokeless Tobacco: Never Used Alcohol Use Standard Drinks/Week Comments No 0 (1 standard drink = 0.6 oz pure alcoho l) Sex Assigned at Date Recorded Female 03/23/2021 8:16 AM EDT documented as of this encounter Progress Notes Ambreen Burroughs MD - 09/28/2020 2:30 PM EST Images from the original note were not included. DERMATOLOGY-RHEUMATOLOGY SPECIALTY CLINIC NOTE Date of Service: 09/28/2020 Brandi Ruiz : 1955 Provider: Ambreen Burroughs MD Visit conducted in conjunction with Savi Herron MD, of Rheumatology Please see her same-day medical note Chief Complaint Patient presents with ??? Follow-up dermatomyositis SKIN HISTORY: Skin cancer:??BCC: face 1999, left arm 2000, right arm??2014 ?? 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 Diagnostic Labs: Her JANETH is positive at 1-160 with a myositis antibody panel with a weakly positive anti-LORI 1??antibody. ??Her's CK has been normal. 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 Clinicopathologic correlation is recommended.?? Current treatment(s): - on plaquenil since ? April 2019. ??Tolerating well ?? Family??Skin??History: Melanoma:??No known ?? 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 Patient Preferences: Preferred name:??Brandi Preferred contact method with results:??myD-H Detailed message including biopsy results okay?: Yes Are there any other people with whom we may discuss your care?:??N/A Preferred pharmacy:??[facility] ?? Procedure Screening Questions: Any allergies to lidocaine or epinephrine? Allergy to epineprhine Any pacemaker or defibrillator? No HPI Brandi Ruiz is a 65 y.o. female seen today in the Dermatology-Rheumatology clinic for evaluation and management of Dermatomyositis. Last seen in this clinic: 08/04/19 - Condition better/worse/stable: Worse. The rash is worse on upper extremities. Pruritus of the scalp and face. Pain on the left rib area shooting pain towards the back intermittent. Pain in the right lower leg near achilles has pain, makes it hard to walk. Pain in hands and feet that first started a few months ago - Associated symptom(s): fatigue which worsens throughout the day. Patient reports she sleeps poorlyand does not feel rested when she wakes in the morning. Patient has sleep apnea and wears CPAP nightly - Interval changes in health: Weight gain - Relevant medications: - plaquenil 200 mg twice daily (2.8mg/kg) - gabapentin 300 mg daily - Diclofenac - Voltaren twice daily; has not used recently - Medication sfx?:None - Refills requested: Plaquenil - Last labs: 09/28/20 - Specific concerns today: - Scalp pruritus; no topical treatments on hand MEDS Current Outpatient Medications Medication Sig Dispense Refill ??? diclofenac EC (Voltaren) 75 mg Tablet, Delayed Release (E.C.) Take 1 tablet by mouth 2 times daily. 180 tablet 0 ??? hydroxychloroquine (Plaquenil) 200 mg Tablet Take 1 tablet by mouth 2 times daily. 60 tablet 3 ??? fluticasone furoate-vilanteroL (Breo Ellipta) 200-25 mcg/dose Disk with Device Inhale 1 puff into the lungs daily. 1 each 5 ??? fluticasone propionate (FLONASE) 50 mcg/actuation [place], Suspension 2 sprays by Each Nare route [...] Anaphylaxis Sulfites ??? Sulfite ??? Vancomycin Hives [facility] Patient Active Problem List Diagnosis Code ??? Anemia D64.9 ??? Hypothyroidism E03.9 ??? Anxiety F41.9 ??? SVT (supraventricular tachycardia) I47.1 ??? Hypothyroid E03.9 ??? History of basal cell carcinoma Z85.828 ??? History of bilateral knee replacement Z96.653 ??? Mild intermittent asthma, uncomplicated J45.20 ROS General: Feeling well Skin: Denies other skin complaints EXAM General: NAD, pleasant, cooperative Skin: A focused skin examination of the scalp and upper extremities significant for??the following: Significant Skin Findings: A. Subtle telangectatic plaques on the arms. Dilation of capillary nailfolds on the right and left middle fingers. Subtle erythema and scaling of the scalp [Figure 1-2] Figure 1. A right arm Figure 2. Photo(s) taken and charted with patient's verbal consent. ASSESSMENT/PLAN A. Dermatomyositis, flaring - [place] decrease to increase plaquenil temporarily, room to increase based on weight based dosing - Start Rx: Plaquenil 600mg daily - Rx: fluocinolone (Synalar) 0.01% solution: Apply topically to scalp/ears 1- 2x/day for up to 2 weeks when flaring; then use 2-3x/week for maintenance. May apply at night and wash out in morning. Follow Up: RTC in 3 months in: [x] Dermatology-Rheumatology clinic [] Dr. Burroughs dermatology clinic [] Dr. Herron rheumatology clinic in [place] [x] Reminder placed in system [] Appointment scheduled before exiting Note initiated by: Sylvia Garcia Scribe documenting this encounter for and in the presence of Dr. Burroughs: Sylvia Garcia I performed the above scribed service and agree with the accuracy of the documentation in this encounter. Ambreen Burroughs MD Lip Reading Teacher of Dermatology Department of Dermatology [facility] cc: Samantha Michelle MD No ref. provider found documented in this encounter Plan of Treatment Upcoming Encounters Date Type Specialty Care Team Description 09/26/2022 Office Visit Dermatology Ambreen Burroughs MD [facility] DR SHAYY CASTILLO-DERMAT [place], [place] [address] (Wo rk) 10/02/2022 Office Visit Pulmonology Laney Calhoun M D [facility] Pulmonary Mati thornton [place], [place] [address] (Wo rk) 11/07/2022 Office Visit Ophthalmology Gifty Bernal MD [facility] [address] [place] [address] (Wo rk) documented as of this encounter Visit Diagnoses Diagnosis Dermatomyositis documented in this encounter Care Teams Cath Lab Nurse Relationship Specialty Start Date End Date Samantha Michelle MD PCP - General 09/14/11 [address] [place] [address] documented as of this encounter
--- OUTSIDE RECORDS SUMMARY | 2022-09-15 01:25 | XMS_ITS | Encounter Summary ---
:1955 Author Organization [place] [address] Care Team Providers Name Role Phone Samantha Michelle MD Primary Care Provider Encounter Details Date Type Department Care Team Description 09/30/2021 Orders Only General Surgery at [address] [phone] Social History Tobacco Use Types Packs/Day Years [...] 09/26/2022 Office Visit Dermatology Ambreen Burroughs MD [facility] DR SHAYY CASTILLO-DERMAT [place], [place] [address] (Wo rk) 10/02/2022 Office Visit Pulmonology Laney Calhoun M D [facility] Pulmonary Mati thorn[place], [place] [address] (Wo rk) 11/07/2022 Office Visit Ophthalmology Gifty Bernal MD [facility] [address] [place], [place] [address] (Wo rk) documented as of this encounter Visit Diagnoses Not on filedocumented in this encounter Care Teams Slot Ambassador Relationship Specialty Start Date End Date Samantha Michelle MD PCP - General 09/14/11 [address] [place] [address] documented as of this encounter
--- OUTSIDE RECORDS SUMMARY | 2022-09-15 01:25 | XMS_ITS | Encounter Summary ---
:1955 Author Organization [facility] [address] Care Team Providers Name Role Phone Samantha Michelle MD Primary Care Provider Reason for Visit Reason Comments Drusen Consultation (Routine) - Specialty Diagnoses / Procedures Referred By Contact Refer red To Contact Ophthalmology Diagnoses Drusen (degenerative) of macula, bilateral Samantha Michelle MD [place], [address] [place] [address] [facility] [place] [address] Phone: Fax: Referral ID Status Reason Start Date Expiration Date Visits V isits Requested Authorized [id number] Consult, Test 01/17/2021 07/17/2021 [facility] PCP Updated and/or Approved Encounter Details Date Type Department Care Team Description 03/29/2021 Office Visit Ophthalmology at [facility] Elise Bernal, Long-term use of Plaquenil; [facility] MD Sahil Asteroid hyalosis of left eye; [facility] Intermediate stage nonexudat haley age-related [place]ular [place] [address] [phone] [place], [place] [address] Social History Tobacco Use Types Packs/Day Years Used Date Former Smoker Cigarettes 0.25 7 Quit: 02/07/19 76 Smokeless Tobacco: Never Used Alcohol Use Standard Drinks/Week Comments No 0 (1 standard drink = 0.6 oz pure alcoho l) Sex Assigned at Date Recorded Female 03/23/2021 8:16 AM EDT documented as of this encounter Progress Notes Sahil Bernal MD - 03/29/2021 12:15 PM EDT ASSESSMENT/PLAN: 1. Long-term use of Plaquenil 2. Asteroid hyalosis of left eye Visual Acuity Visual Acuity (Snellen - Linear) Right Left Dist cc 20/20 -2 20/20 -2 Near cc 20/30 20/25 Correction: Glasses 1. Plaquenil use - On treatment since 04/2019. (2.5 years) - Currently on 400mg/day since. Today 03/29/2021 The exam and multimodal imaging are negative for signs of retinal toxicity. Reassurance provided. Discussed that the risk for toxicity is low if the total dose is <1000gr but increases thereafter Based on the [employer] The risk of toxicity is dependent on daily dose and duration of use. At recommended doses, the risk of toxicity up to 5 years is under 1% and up to 10 years is under 2%, but it rises to almost 20% after 20 years. However, even after 20 years, a patient without toxicity has only a 4% risk of convertingin the subsequent year 2. Asteroid Hyalosis OS - Monitor 3. Dry AMD OU Discussed importance of AREDS, Amsler grid Follow up in 2 years for FAF, DFE, OCT OU Sooner PRN I, Monet Delaney, have performed the documentation for this encounter in the presence of, and acting as a scribe for Sahil Bernal MD. I performed the services which were documented by the scribe, and I agree with the accuracy of the documentation in this encounter. Sahil Bernal MD, PhD Extended Ophthalmoscopy Indication: 1. Long-term use of Plaquenil 2. Asteroid hyalosis of left eye Technique: A) Indirect ophthalmoscopy with scleral depression B) Slit lamp exam with 90D/78D lens Findings: Main Ophthalmology Exam External Exam Right Left External Normal Normal Slit Lamp Exam Right Left Lids/Lashes Normal Normal Conjunctiva/Sclera White and quiet White and quiet Cornea Clear Clear Anterior Chamber Deep and quiet Deep and quiet Iris Round and reactive Round and reactive Lens 1+ NS 1+ NS Fundus Exam Right Left Vitreous Normal 1-2+ asteroid Disc Normal Normal C/D Ratio 0.4 0.3 Macula Drusen Drusen Vessels Normal Normal Periphery vortex veins, drusen Normal documented in this encounter Plan of Treatment Upcoming Encounters Date Type Specialty Care Team Description 09/26/2022 Office Visit Dermatology Ambreen Burroughs MD [facility] DR SHAYY CASTILLO-DERMAT [place], [place] [address] (Wo rk) 10/02/2022 Office Visit Pulmonology Laney Calhoun M D [facility] Pulmonary Medicguido thorn[place], [place] [address] (Wo rk) 11/07/2022 Office Visit Ophthalmology Gifty Bernal MD [facility] [place], [place] [address] (Wo rk) documented as of this encounter Procedures Procedure Name Priority Date/Time Associated Diagnosis Comme nts MONOCHROMATIC PHOTOS - Routine 03/29/2021 1:17 Long-term use o f Results for this OU - BOTH EYES PM EDT Plaquenil procedure are in Asteroid hyalosis of the res ults left eye section. Intermediate stage nonexudative age-related macular degeneration of both eyes OCT RETINA - OU - BOTH Routine 03/29/2021 1:17 Long-term use o f Results for this EYES PM EDT Plaquenil procedure are in Asteroid hyalosis of the res ults left eye section. Intermediate stage nonexudative age-related macular degeneration of both eyes documented in this encounter Results Monochromatic Photos - OU - Both Eyes (03/29/2021 1:17 PM EDT) Anatomical Region Laterality Modality Other Specimen (Source) Anatomical Location Collection Method / Collectio n Time Received Time / Laterality Volume Narrative 03/29/2021 1:17 PM EDT Right Eye Progression has no prior data. Disc find ings include normal observations. Macula findings include retinal pigment epithelium abnormalities. Vessel findings include normal observations. Pe riphery findings include normal observations. Left Eye Disc findings include normal observation s. Macula findings include retinal pigment epithelium abnormalities. Vessel findings include normal observations. Periphery findings include normal observations. Sahil Bernal MD [facility] OCT Retina - OU - Both Eyes (03/29/2021 1:17 PM EDT) Anatomical Region Laterality Modality Other Specimen (Source) Anatomical Location Collection Method / Collectio n Time Received Time / Laterality Volume Narrative 03/29/2021 1:17 PM EDT Right Eye Quality was good. Scan locations include d subfoveal. Progression has no prior data. Findings include subretinal scarring, normal foveal contour. Left Eye Quality was good. Scan locations include d subfoveal. Progression has no prior data. Findings include subretinal scarring, normal foveal contour. Sahil Bernal MD [facility] documented in this encounter Visit Diagnoses Diagnosis Long-term use of Plaquenil Asteroid hyalosis of left eye Crystalline deposits in vitreous Intermediate stage nonexudative age-rela geetha macular degeneration of both eyes documented in this encounter Care Teams Food And Beverage Director Relationship Specialty Start Date End Date Samantha Michelle MD PCP - General 09/14/11 [address] [place] [address] documented as of this encounter
--- OUTSIDE RECORDS SUMMARY | 2022-09-15 01:25 | XMS_ITS | Encounter Summary ---
:1955 Author Organization [facility] [place] [address] Care Team Providers Name Role Phone Samantha Michelle MD Primary Care Provider Encounter Details Date Type Department Care Team Description 09/28/2020 Office Visit Dermatology at [facility] Savi Herron MD Amyopathic dermatomyositis; [address] Encounter for long-term (current) use of high-risk medication [address] [place] [address] [place], [place] [phone] Social History Tobacco Use Types Packs/Day Years Used Date Former Smoker Cigarettes 0.25 7 Quit: 02/07/19 76 Smokeless Tobacco: Never Used Alcohol Use Standard Drinks/Week Comments No 0 (1 standard drink = 0.6 oz pure alcoho l) Sex Assigned at Date Recorded Female 03/23/2021 8:16 AM EDT documented as of this encounter Progress Notes Savi Herron MD - 09/28/2020 3:00 PM EST Brandi Ruiz is seen in the dermatology/rheumatology clinic for follow-up of dermatomyositis. She was last seen a year ago in July 2019. 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 She was diagnosed with amyopathic dermatomyositis.Her JANETH is positive at 1-160 with a myositis antibody panel with a weakly positive anti-LORI 1 antibody. Her's CK has been normal. Her rheumatoid factor is mildly elevated at 17 with an elevated CRP. She reports that she continues to take hydroxychloroquine 200 mg twice daily with benefit for her a myopathic dermatomyositis. She continues to have musculoskeletal pain including continued problems with her right total knee replacement. In particular her right Achilles bothers her. In the past year she has had follow up of several issues noted below. The patient's evaluation has included an MRI without contrast of the lower extremities that demonstrated a soft tissue mass in the right vastus lateralis. A contrast MRI was recommended and is noted below. She also has slight uptakein the uterus on a PET scan and is scheduled for a transvaginal ultrasound as well as a gynecologic opinion regarding the abnormality. This evaluation was not done due to Covid 19 and is scheduled for the near future. CAT scan of chest showed old granulomatous disease but no interstitial lung disease.PFTs were normal. She has some dysphasia with episodes of diaphoresis and nausea associated with pres yncope awaking her at night. I do not believe she has had a GI evaluation for this problem likely due to the pandemic. Orthopedics has recommended a revision of her right knee replacement due to loosening. She is not interested in that procedure at this time. IMPRESSION 1. The tubular, septated structure within the vastus lateralis has MR characteristics that most resembles the features of a cyst. On diffusion-weighted sequences with ADC mapping, high intensity on both suggests T2 shine through rather than restricted diffusion. Finding is mostly peripherally enhancing with the suggestion of enhancing septations versus traversing vessels along its superolateral aspect. ?? 2. Interval development of heterogeneous marrow signal with associated heterogeneous enhancement in the distal femoral shaft extending over a 7.7 cm segment. On opposed phase and in phase sequences, there is signal dropout multiple business services sales representative levels of the distal femoral intramedullary space, suggesting that there is not a marrow replacing lesion at this time. This appearance is nonspecific. Findings could represent any combination of hematopoietic marrow or posttreatment changes related to the patient's medications. Given the patient's diagnosis of dermatomyositis and associated increased risk of malignancy, recommend close interval follow-up PETCT in 6 months to monitor for the development of focal bone lesions. On physical exam, the patient looks well and unchanged. Her skin is described in Dr. Burroughs's note from this date. Her right knee has a small effusion but is not warm or swollen to the extent that it was in July 2019. She does have tenderness over the retro-Achilles bursa. A conversation between the patient and the dermatology/rheumatology team ensued. We feel that the hydroxychloroquine is making a difference in her rash. We discussed some options for her joints. It seems reasonable to follow-up with the recommended PET/CT in 6 months time though will leave this to thediscretion of her primary painter ordnance, Dr. Martin. Her laboratory tests from today look generally normal. Her elevated inflammatory markers may be related to her obesity and they are not worse than when we saw her a year ago. We would be happy to see the patient again at her request. Recent Results (from the past 24 hour(s)) Sedimentation rate Result Value Ref Range Sed Rate 39 2 - 39 mm/hr Comprehensive metabolic panel (non-fasting) Result Value Ref Range Glucose Lvl 113 65 - 199 mg/dL BUN 12 8 - 18 mg/dL Creatinine 0.81 0.70 - 1.20 mg/dL Sodium 139 135 - 145 mmol/L Potassium 4.2 3.5 - 5.0 mmol/L Chloride 102 98 - 107 mmol/L CO2 27 22 - 31 mmol/L Anion Gap 10 5 - 15 mmol/L Calcium 10.0 8.5 - 10.5 mg/dL Total Protein 7.3 6.1 - 8.0 gm/dL Albumin 4.2 3.2 - 5.2 gm/dL AST 22 0 - 30 unit/L ALT 20 0 - 30 unit/L Alk Phos 109 (H) 35 - 105 unit/L Total Bilirubin 0.2 0.2 - 1.3 mg/dL eGFR 77 >=60 mL/min/1.73 m?? eGFR 89 >=60 mL/min/1.73 m?? CRP, acute inflammation Result Value Ref Range CRP 17.4 (H) <=4.9 mg/L Hemogram Result Value Ref Range WBC 8.8 4.0 - 9.5 x10(3)/mcL RBC 4.92 4.00 - 5.21 x10(6)/mcL Hemoglobin 12.3 11.7 - 15.5 gm/dL Hematocrit 40.2 35.7 - 45.8 % MCV 81.7 (L) 82.6 - 94.4 fL MCH 25.0 (L) 27.1 - 32.0 pg MCHC 30.6 (L) 31.7 - 35.0 gm/dL Platelets 248 145 - 357 x10(3)/mcL RDWSD 50.5 (H) 37.0 - 46.0 fL RDWCV 16.8 (H) 11.5 - 14.1 % MPV 10.6 7.6 - 12.9 fL nRBC % Auto 0.0 % nRBC Abs Auto 0.000 0.000 - 0.000 x10(3)/mcL Differential, Automated Result Value Ref Range Neutrophils % 65.0 % Neutr Abs (ANC) 5.72 1.70 - 6.10 x10(3)/mcL Lymphocytes % 23.8 % Lymphocytes Abs 2.1 0.9 - 3.2 x10(3)/mcL Monocytes % 6.5 % Monocyte Abs 0.6 0.3 - 0.9 x10(3)/mcL Eosinophils % 3.4 % Eosinophils Abs 0.3 0.0 - 0.4 x10(3)/mcL Basophils % 0.7 % Basophils Abs 0.1 0.0 - 0.1 x10(3)/mcL Immature Gran % 0.60 % Kavitha Gran Abs 0.05 (H) 0.00 - 0.04 x10(3)/mcL Bilirubin, Direct Result Value Ref Range Bili, Direct 0.1 0.0 - 0.3 mg/dL documented in this encounter Plan of Treatment Upcoming Encounters Date Type Specialty Care Team Description 09/26/2022 Office Visit Dermatology Ambreen Burroughs MD [facility] DR [address]-DERMAT [place], [place] [address] (Wo rk) 10/02/2022 Office Visit Pulmonology Laney Calhoun M D [facility] Pulmonary Medicguido thornton [place], [place] [address] (Wo rk) 11/07/2022 Office Visit Ophthalmology Gifty Bernal MD [facility] [place], [place] [address] (Wo rk) documented as of this encounter Visit Diagnoses Diagnosis Amyopathic dermatomyositis Dermatomyositis Encounter for long-term (current) use of high-risk medication Encounter for long-term (current) use of other medications documented in this encounter Care Teams Sales And Merchandising Associate Relationship Specialty Start Date End Date Samantha Michelle MD PCP - General 09/14/11 [address] [place] [address] documented as of this encounter
--- OUTSIDE RECORDS SUMMARY | 2022-09-15 01:25 | XMS_ITS | Encounter Summary ---
:1955 [place] [address] Care Team Providers Name Role Phone Samantha Michelle MD Primary Care Provider Reason for Visit Reason Onset Date Comments Medication Refill 09/09/2020 Encounter Details Date Type Department Care Team Description 09/09/2020 Refill Rhe[place]ology [place] [facility]brahim, [facility] [place] [address] RHEUMATOLOGY DEPT [phone] [place], [place] [address] (Wo rk) Social History Tobacco [...] [facility] DR SHAYY CASTILLO-DERMAT [place], [place] [address] (Wo rk) 10/02/2022 Office Visit Pulmonology Laney Calhoun M D [facility] Pulmonary Medicguido thorn[place], [place] [address] (Wo rk) 11/07/2022 Office Visit Ophthalmology Gifty Bernal MD [facility] [place] [address] (Wo rk) documented as of this encounter Visit Diagnoses Not on filedocumented in this encounter Care Teams Hand Mixer Relationship Specialty Start Date End Date Samantha Michelle MD PCP - General 09/14/11 [address] [place] [address] documented as of this encounter
--- OUTSIDE RECORDS SUMMARY | 2022-09-15 01:25 | XMS_ITS | Encounter Summary ---
:1955 Author Organization [facility] [address] Care Team Providers Name Role Phone Samantha Michelle MD Primary Care Provider Encounter Details Date Type Department Care Team Description 08/09/2021 Telephone Dermatology at [facility] Ambreen Burroughs MD [address] [facility] [place] [address] [facility] [phone] [place], [place] [address] (Wo rk) Social History Tobacco [...] Notes Telephone Encounter - Lisset Escoto - 08/09/2021 11:57 AM EDT I left a voicemail for Brandi Ruiz requesting a call back to schedule derm/rheum follow up in September. Telephone Encounter - Lisset Escoto - 08/09/2021 11:56 AM EDT ----- Message from Yuliana Barboza sent at 08/02/2021 4:00 PM EDT ----- Earlier appt in 2 months so patient has time to do study things (biopsy and bloodwork) documented in this encounter Plan of Treatment Upcoming Encounters Date Type Specialty Care Team Description 09/26/2022 Office Visit Dermatology Ambreen Burroughs MD [facility] [address]-DERMAT [place], [place] 0[address] (Wo rk) 10/02/2022 Office Visit Pulmonology Laney Calhoun M D [facility] Pulmonary Medici hillary [place], [place] 0[address] (Wo rk) 11/07/2022 Office Visit Ophthalmology Gifty Bernal MD [facility] [place], [place] [address] (Wo rk) documented as of this encounter Visit Diagnoses Not on filedocumented in this encounter Care Teams Family Service Worker Relationship Specialty Start Date End Date Samantha Michelle MD PCP - General 09/14/11 [address] [place] [address] documented as of this encounter
--- OUTSIDE RECORDS SUMMARY | 2022-09-15 01:25 | XMS_ITS | Encounter Summary ---
:1955 Author Organization [facility] [place] [address] Care Team Providers Name Role Phone Samantha Michelle MD Primary Care Provider Encounter Details Date Type Department Care Team Description 09/27/2021 Office Visit Dermatology at [facility] Savi Herron MD Dermatomyositis; [address] Encounter for long-term (current) use of high-risk medication; [address] R[place]UMAT[place] [address] [place], [place] [phone] Social History Tobacco Use Types Packs/Day Years Used Date Former Smoker Cigarettes 0.25 7 Quit: 02/07/19 75 Smokeless Tobacco: Never Used Alcohol Use Standard Drinks/Week Comments No 0 (1 standard drink = 0.6 oz pure alcoho l) Sex Assigned at Date Recorded Female 03/23/2021 8:16 AM EDT documented as of this encounter Progress Notes Savi Herron MD - 09/27/2021 11:00 AM EDT Brandi Ruiz is seen in the [...] due to a abscessed tooth, a broken [place] and a deep filling that would probably not hold. She has been on 2 courses of antibiotics and a tooth extraction and bone graft. At our last visit in Jul, the patient was on methotrexate and hydroxychloroquine but still had significant skin inflammation. We wondered if hydroxychloroquine was having an adverse effect as described in approximately 33% of patients with dermatomyositis. Hydroxychloroquine was discontinued on August 02, 2021. Her calcium was 10.8 in May, and we did a repeat calcium and PTH both of which were normal (10 and 62). Brandi reports that her skin is no better off of hydroxychloroquine and her arms hurt. She identifiesit as the muscles and tenderness to touch but it also hurts to use her arms left greater than right.Her gluteal muscles are tender as well but not like the arms. She also has pain in the MCP and PIP joints of the hands. She continues to take methotrexate 20 mg a week. She has not been on prednisone for her illness. The patient reports no pulmonary symptoms except for allergic reactive airways disease for which sheuses an inhaler. She has no dysphagia. She does have some abdominal cramping that is new without changes in her bowel habits. The patient reports no intercurrent illness. She did receive the third Covid 19 vaccination and the flu shot. On physical exam Brandi looks well but her skin is notable for pink plaques over the upper arms and forearms to some extent. Squeezing her subcutaneous tissue is uncomfortable. However active range of motion of her arms hurts and passive range of motion in her shoulders is reduced particularly on the left to external rotation. Her nailfold capillaries show generalized mild abnormality. The patient's laboratory tests were reviewed. Her CBC and liver profile are unremarkable. The dermatology and rheumatology team discussed our thoughts with the patient. We would like to do askin biopsy to see if the erythema noted on her arms is associated with active inflammation. We alsodiscussed doing an MRI of the upper arms looking at both the shoulder joints as well as the muscle. I corresponded with Karmen Keys MD regarding the appropriate ordering of the test. She noted a dedicated muscle protocol was not in place for the upper extremity but to order a MRI of the chest withoutcontrast to go from the top of the [...] again in 1 to [address] the efficacy of our interventions. documented in this encounter Plan of Treatment Upcoming Encounters Date Type Specialty Care Team Description 09/26/2022 Office Visit Dermatology Ambreen Burroughs MD [facility] [address] SH[address] CASTILLO-DERMAT [place], [place] [address] (Ashvin disla) 10/02/2022 Office Visit Pulmonology Laney Calhoun M D [facility] Pulmonary Medicguido thornton [place], [place] [address] (Ashvin disla) 11/07/2022 Office Visit Ophthalmology Gifty Bernal MD [facility] [address] [place], [place] [address] (Wo rk) documented as of this encounter Visit Diagnoses Diagnosis Dermatomyositis Encounter for long-term (current) use of high-risk medication Encounter for long-term (current) use of other medications Hypercalcemia documented in this encounter Care Teams Clinical Account Specialist Relationship Specialty Start Date End Date Samantha Michelle MD PCP - General 09/14/11 [address] [place] [address] documented as of this encounter
--- OUTSIDE RECORDS SUMMARY | 2022-09-15 01:25 | XMS_ITS | Encounter Summary ---
:1955 Author Organization [facility] [place] [address] Care Team Providers Name Role Phone Samantha Michelle MD Primary Care Provider Encounter Details Date Type Department Care Team Description 05/17/2020 Telephone Plastic Surgery at [facility] [place] [address] Social History Tobacco Use Types Packs/Day Years Used Date Former Smoker Cigarettes 0.25 7 Quit: 02/07/19 76 Smokeless Tobacco: Never Used Alcohol Use Standard Drinks/Week Comments No 0 (1 standard drink = 0.6 oz pure alcoho l) Sex Assigned at Date Recorded Female 03/23/2021 8:16 AM EDT documented as of this encounter Miscellaneous Notes Telephone Encounter - Theresa Barcenas - 05/17/2020 9:23 AM EDT L/m with patient to call both radiology and neurology to schedule both EMG and MRI (orders in) Once scheduled may then follow up with Dr. Mendez 1 week later to review results documented in this encounter Plan of Treatment Upcoming Encounters Date Type Specialty Care Team Description 09/26/2022 Office Visit Dermatology Ambreen Burroughs MD [facility] ER DR SHAYY CASTILLO-DERMAT [place], [place] [address] (Wo rk) 10/02/2022 Office Visit Pulmonology Laney Calhoun M D [facility] Pulmonary Medicguido [place], [place] [address] (Wo rk) 11/07/2022 Office Visit Ophthalmology Gifty Bernal MD [facility] [place], [place] [address] (Wo rk) documented as of this encounter Visit Diagnoses Not on filedocumented in this encounter Care Teams Drafter Electrical Relationship Specialty Start Date End Date Samantha Michelle MD PCP - General 09/14/11 [address] [place] [address] documented as of this encounter
--- OUTSIDE RECORDS SUMMARY | 2022-09-15 01:25 | XMS_ITS | Encounter Summary ---
:1955 Author Organization [facility] [address] Care Team Providers Name Role Phone Samantha Michelle MD Primary Care Provider Reason for Visit Reason Onset Date Comments Medication Refill 06/28/2021 Encounter Details Date Type Department Care Team Description 06/28/2021 Refill Dermatology at [facility] Ambreen Burroughs MD Dermatomyositis [address] [facility] [place] [address] SHAYY CASTILLO-DERMATOLGY [phone] [place], [place] [address] (Wo rk) Social History Tobacco [...] Visit Dermatology Ambreen Burroughs MD [facility] [address] SHAYY CASTILLO-DERMAT [place], [place] [address] (Wo rk) 10/02/2022 Office Visit Pulmonology Laney Calhoun M D [facility] Pulmonary Medici [place], [place] [address] (Wo rk) 11/07/2022 Office Visit Ophthalmology Gifty Bernal MD [facility] [place], [place] [address] (Wo rk) documented as of this encounter Visit Diagnoses Diagnosis Dermatomyositis documented in this encounter Care Teams Electric Motor Rebuilder Relationship Specialty Start Date End Date Samantha Michelle MD PCP - General 09/14/11 [address] [place] [address] documented as of this encounter
--- OUTSIDE RECORDS SUMMARY | 2022-09-15 01:25 | XMS_ITS | Encounter Summary ---
:1955 Author Organization [facility] [place] [address] Care Team Providers Name Role Phone Samantha Michelle MD Primary Care Provider Reason for Referral Diagnostic Test (Routine) - Closed Specialty Diagnoses / Procedures Referred By Contact Refer red To Contact Radiology Diagnoses Dermatomyositis Savi Herron MD [facility] Rad Mri Procedures MRI Lower Extremity Non Joint wwo Contrast Right [address] [facility] [place] [address] [place] [address] Referral ID Status Reason Start Date Expiration Date Visits V isits Requested Authorized [id number] Closed Specialty 01/20/2021 07/20/2022 1 1 Service Requested Encounter Details Date Type Department Care Team Description 01/20/2021 Orders Only Rheumatology at [place] Savi Herron MD Dermatomyos[facility] [address] [facility] [place] [address] [place] [address] [phone] (Wo rk) Social History Tobacco Use Types [...] HEALTH EMERGENCY DEPARTMENT DR [address]-DERMAT [place], [place] [address] (Wo rk) 10/02/2022 Office Visit Pulmonology Laney Calhoun M D [facility] Pulmonary Medici hillary [place], [place] [address] (Wo rk) 11/07/2022 Office Visit Ophthalmology Gifty Bernal MD [facility] [place], [place] [address] (Wo rk) documented as of this encounter Results MRI Lower Extremity Non Joint wwo Contrast Right (06/20/2021 3:48 PM EDT) Anatomical Region Laterality Modality Hip, Thigh, Knee, Leg, Ankle, Foot Right Magne tic Resonance Specimen (Source) Anatomical Location Collection Method / Collectio n Time Received Time / Laterality Volume Impressions 06/21/2021 9:57 AM EDT No change of an appearance of septated tubular structure in the vastus lateralis with imaging characteristics most sugges tive of a cyst. The previously described heterogeneous m arrow signal has decreased in prominence. This may reflect hematopoeti c marrow or posttreatment changes related to patient's medications. I have personally reviewed the image(s) and the resident's interpretation and agree with the findings, Steve Sloan MD at 06/21/2021 9:57 AM Thank you for letting us participate in the care of this patient. ??If you are a health care provider and have any questi ons regarding this report, please contact the number below. ??For patients who have questions please contact the health healthcare or medical that requested your imaging first. ? 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 change in cystic structure and bone mark ow signal TECHNIQUE: Contrast enhanced MRI of the right lower extremity including sagittal T1, coronal STIR, axial T2 fat-sat, axial T1 , axial vibe fat sat, axial vibe fat sat post, coronal 5 fat sat post, sagittal v ahsan fat sat post, coronal vibe fs baez , and axial subtraction sequences. COMPARISON: MRI of 09/01/2019. FINDINGS: Vastus Lateralis lesion: Again seen is a tubular, septated struct ure in the vastus lateralis that is T2 hyperintense, T1 hypointense with no int ernal enhancement. There are a few traversing blood vessels enhancing inter nal septations along the superolateral aspect. At its largest single dimension and measures 1.4 x 1.2 cm, stable when compared to prior exam. Intramedullary findings: Prior exam there is decreased heterogene ous T1 hypointensity within the medullary space of the right femur invol ving the more distal one third of the femur. There is similar area of T1 hypoi ntensity at the distal femoral shaft with peripheral enhancement, similar to prior exam. Procedure Note Steve Sloan MD - 06/21/2021Formatting o f this note might be different from the original. 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 change in cystic structure and bone mark ow signal TECHNIQUE: Contrast enhanced MRI of the right lower extremity including sagittal T1, coronal STIR, axial T2 fat-sat, axial T1 , axial vibe fat sat, axial vibe fat sat post, coronal 5 fat sat post, sagittal v ahsan fat sat post, coronal vibe fs baez , and axial subtraction sequences. COMPARISON: MRI of 09/01/2019. FINDINGS: Vastus Lateralis lesion: Again seen is a tubular, septated struct ure in the vastus lateralis that is T2 hyperintense, T1 hypointense with no int ernal enhancement. There are a few traversing blood vessels enhancing inter nal septations along the superolateral aspect. At its largest single dimension and measures 1.4 x 1.2 cm, stable when compared to prior exam. Intramedullary findings: Prior exam there is decreased heterogene ous T1 hypointensity within the medullary space of the right femur invol ving the more distal one third of the femur. There is similar area of T1 hypoi ntensity at the distal femoral shaft with peripheral enhancement, similar to prior exam. IMPRESSION No change of an appearance of septated t ubular structure in the vastus lateralis with imaging characteristics most sugges tive of a cyst. The previously described heterogeneous m arrow signal has decreased in prominence. This may reflect hematopoeti c marrow or posttreatment changes related to patient's medications. I have personally reviewed the image(s) and the resident's interpretation and agree with the findings, Steve Sloan MD at 06/21/2021 9:57 AM Thank you for letting us participate in the care of this patient. If you are a health care provider and have any questi ons regarding this report, please contact the number below. For patients w ho have questions please contact the health healthcare or medical that requested your imaging first. Savi Herron MD IMG MRI ORDERABLES documented in this encounter Visit Diagnoses Diagnosis Dermatomyositis Dermatomyositis documented in this encounter Care Teams Truck Headlight Assembler Relationship Specialty Start Date End Date Samantha Michelle MD PCP - General 09/14/11 [address] [place] [address] documented as of this encounter
--- OUTSIDE RECORDS SUMMARY | 2022-09-15 01:25 | XMS_ITS | Encounter Summary ---
:1955 Author Organization [facility] [place] [address] Care Team Providers Name Role Phone Samantha Michelle MD Primary Care Provider Reason for Visit Reason Onset Date Comments Medication Refill 11/29/2020 Encounter Details Date Type Department Care Team Description 11/29/2020 Refill [place] [facility] [place] Martin MD [facility] [place] [address] [place] [address] [phone] (Wo rk) Social History Tobacco Use Types [...] [facility] [address] SHAYY CASTILLO-DERMAT [place], [place] [address] (Wo rk) 10/02/2022 Office Visit Pulmonology Laney Calhoun M D [facility] Pulmonary Medicguido [place]ornton [place], [place] [address] (Wo rk) 11/07/2022 Office Visit Ophthalmology Gifty Bernal MD [facility] [place] [address] (Wo rk) documented as of this encounter Visit Diagnoses Not on filedocumented in this encounter Care Teams [employer] Fitness Instructor Relationship Specialty Start Date End Date Samantha Michelle MD PCP - General 09/14/11 [address] [place] [address] documented as of this encounter
--- OUTSIDE RECORDS SUMMARY | 2022-09-15 01:25 | XMS_ITS | Encounter Summary ---
:1955 Author Organization [facility] [place] [address] Care Team Providers Name Role Phone Samantha Michelle MD Primary Care Provider Encounter Details Date Type Department Care Team Description 06/20/2021 Hospital Encounter Ultrasound at [facility] Ambreen Burroughs Dermatomyositis [facility] [place] [address] [facility] [phone] RD-DERMATOLGY [place], [place] [address] Social History Tobacco Use Types [...] Sig Dispensed Refills Start Date End Date polyethylene glycol Take 17 g by mouth as 0 (MIRALAX) 17 gram Powder needed. in Packet ALPRAZolam (XANAX) 0.25 Take 0.25 mg by mouth 1 0 05/13/2019 mg Tablet as needed. levothyroxine daily. 4 02/18/2019 (SYNTHROID) 125 mcg Tablet metoprolol succinate daily. 0 03/27/2019 (TOPROL-XL) 25 mg Tablet Sustained Release 24 hr acetaminophen (TYLENOL) Take 2 tablets by 60 tablet 3 03/03 500 mg Tablet mouth every 6 hours as needed. escitalopram (LEXAPRO) Take 20 mg by mouth 0 20 mg tablet daily. esomeprazole (NEXIUM) 40 Take 40 mg by mouth 0 mg capsule every morning (before breakfast). clindamycin (Cleocin) 0 05/10/202108/2022 150 mg Capsule azithromycin (Zithromax) 0 04/19/2021 12/05/2021 250 mg Tablet vit A/vit C/vit Take 1 capsule by 0 E/zinc/copper mouth 2 times daily. (PRESERVISION AREDS ORAL) hydrOXYchloroQUINE Take 1 tablet by 60 tablet 3 05/19/2021 02/07/2022 (Plaquenil) 200 mg mouth 2 times daily. TabletIndications: Indications: dermatomyositis dermatomyositis metHOTREXate 2.5 mg Take 6 tablets by 24 tablet 2 1 06/28/2021 TabletIndications: mouth once a week. Dermatomyositis folic acid (Folvite) 1 Take 1 tablet by 90 tablet 3 021 02/07/2022 mg TabletIndications: mouth daily. Dermatomyositis meloxicam (MOBIC) 15 mg Take 1 tablet by 30 tablet 12 202002/17/2022 Tablet mouth daily. diclofenac EC (Voltaren) Take 1 tablet by 180 tablet 0 11/3012/05/2021 75 mg Tablet, Delayed mouth 2 times daily Release (E.C.) as needed (Joint pains). fluocinolone acetonide Apply topically to 90 mL 3 09/2912/05/2021 (SYNALAR) 0.01 % scalp 1-2x day for 2 SolutionIndications: weeks when flaring Dermatomyositis then use 2-3x week for maintenance. hydrOXYchloroQUINE Take 1 tablet by 270 tablet 0 09/29/2020 12/05/2021 (Plaquenil) 200 mg mouth 3 times daily. TabletIndications: Indications: dermatomyositis dermatomyositis fluticasone Inhale 1 puff into 1 each 5 02/11/202002/07 furoate-vilanteroL (Breo the lungs daily. Ellipta) 200-25 mcg/dose Disk with Device fluticasone propionate 2 sprays by Each Nare 1 each 3 01/18/2022 (FLONASE) 50 route daily. mcg/actuation [place], Suspension gabapentin (NEURONTIN) Take 200 mg by mouth 0 06/201912/05/2021 300 mg Capsule every evening. triamcinolone (KENALOG) Apply to affected 454 g 1 05/1208/02/2021 0.1 % areas on arms twice OintmentIndications: daily for 10-14 days. Dermatomyositis Take 5-7 days off and repeat as needed documented as of this encounter Progress Notes Ambreen Burroughs MD - 06/20/2021 2:07 PM EDT [facility], Just a note to let you know your recent pelvic ultrasound was normal. Good news. Ambreen Newell documented in this encounter Plan of Treatment Upcoming Encounters Date Type Specialty Care Team Description 09/26/2022 Office Visit Dermatology Ambreen Burroughs MD [facility] DR SHAYY CASTILLO-DERMAT [place], [place] [address] (Wo rk) 10/02/2022 Office Visit Pulmonology Laney Calhoun M D [facility] Pulmonary Mati thornton [place], [place] 0[address] (Wo rk) 11/07/2022 Office Visit Ophthalmology Gifty Bernal MD [facility] [place], [place] [address] (Wo rk) documented as of this encounter Procedures Procedure Name Priority Date/Time Associated Diagnosis Comme nts US TRANSVAGINAL NON Routine 06/20/2021 2:01 Dermatomyositis Re sults for this OB PM EDT procedure are i n the results section. documented in this encounter Results US Transvaginal Non OB [...] first. Electronically signed by: Julita carver MD, [facility] ([phone]), at 2:04 PM Thank you for letting us participate in the care of this patient. If you are a health care provid er and have any questions regarding this report, please contact the number below. For patients who have ques tions, please contact the health care professio nal that requested your imaging first. ??Julita Hook, [facility] Ln & Dept Chair - Rad Electronically Signed Final Report ?? 02:12 pm Narrative 06/20/2021 2:12 PM EDT Gynecological Report ?(Signed Final 06/20/2021 02:12 pm) PATIENT INFO: ID #: ? [id number] ?: ??[birth year] (66 yrs)(F) Name: ? MILANA FARMER ? Visit Date: 06/20/2021 01:34 pm PERFORMED BY: Performed By: ? Magi Yeager RDMS Attending: ?Monster FREEMAN, Corona misti D. Referred By: ?AMBREEN Arguello CARMEL Location: ? [place] SERVICE(S) PROVIDED: UTV - Transvaginal - [id number] ?[id number] UPELIM - Pelvis Limited - [id number] ? [id number] INDICATIONS: Lobular heterogeneous uterus in pt with [...] 05/27 02:12 pm) PATIENT INFO: ID #: [id number] : [birth year] (66 y rs)(F) Name: MILANA FARMER Visit Date: 2020 01:34 pm PERFORMED BY: Performed By: Magi Yeager RDMS Attending: Julita Hook MD Referred By: AMBREEN BURROUGHS Location: [place] SERVICE(S) PROVIDED: UTV - Transvaginal - [id number] UPELIM - Pelvis Limited - [id number] INDICATIONS: Lobular heterogeneous uterus in pt with [...] first. Electronically signed by: Julita carver MD, [facility] ([phone]), at 2:04 PM Thank you for letting us participate in the care of this patient. If you are a health care provid er and have any questions regarding this report, please contact the number below. For patients who have ques tions, please contact the [facility] nal that requested your imaging first. Julita Hook, OFF PREMISE SERVICE REPRESENTATIVE c Ln & Dept C hair - Rad Electronically Signed Final Report 06/20 02:12 pm Ambreen Burroughs MD IMG US PELVIC ORDERABLES documented in this encounter Visit Diagnoses Diagnosis Dermatomyositis documented in this encounter Care Teams Process Safety Management Engineer Relationship Specialty Start Date End Date Samantha Michelle MD PCP - General 09/14/11 [address] [place] [address] documented as of this encounter
--- OUTSIDE RECORDS SUMMARY | 2022-09-15 01:25 | XMS_ITS | Encounter Summary ---
:1955 Author Organization [facility] [place] [address] Care Team Providers Name Role Phone Samantha Michelle MD Primary Care Provider Reason for Visit Diagnostic Test (Routine) - Pending Review Specialty Diagnoses / Procedures Referred By Contact Refer red To Contact Radiology Diagnoses Dermatomyositis Savi Herron MD [facility] Rad Mri Procedures MRI Upper Extremity Non Joint wo Contrast MRI Chest wo Contrast [address] [place] [address] [place] [address] Referral ID Status Reason Start Expiration Visits Visits Date Date Requested Authorized [id number] Pending Specialty 09/27/2021 03/27/2023 1 1 Review Service Requested Encounter Details Date Type Department Care Team Description 11/07/2021 Hospital Encounter MRI at [facility] Savi Herron MD Dermatomyositis [address] [address] [place], [place] [phone] Social History Tobacco Use Types Packs/Day Years [...] 07/12/2021 100 mg Capsule ondansetron (Zofran) 4 as needed. 0 09/23/2021 mg Tablet triamcinolone (Kenalog) Apply to affected 454 [...] 0 mg capsule every morning (before breakfast). fluconazole (Diflucan) Take one tablet by 2 tablet 0 11/0112/05/2021 150 mg mouth every 72 hours TabletIndications: Yeast for 2 doses. infection clindamycin (Cleocin) 0 05/10/202108/2022 150 mg Capsule azithromycin (Zithromax) 0 04/19/2021 12/05/2021 250 mg Tablet hydrOXYchloroQUINE Take 1 tablet by 60 tablet 1 09/27/2021 12/05/2021 (Plaquenil) 200 mg mouth 2 times daily. TabletIndications: Dermatomyositis metHOTREXate 2.5 mg Take 10 tablets (25 40 tablet 1 021 12/05/2021 TabletIndications: mg) by mouth once a Dermatomyositis week. Take in divided doses over 24 hrs. metHOTREXate 2.5 mg Take 8 tablets (20 [...] Indications: dermatomyositis dermatomyositis folic acid (Folvite) 1 Take 1 tablet [...] 3 01/18/2022 (FLONASE) 50 route daily. mcg/actuation [place], Suspension gabapentin (NEURONTIN) Take 200 mg by mouth 0 06/201912/05/2021 300 mg Capsule every evening. documented as of this encounter Plan of Treatment Upcoming Encounters Date Type Specialty Care Team Description 09/26/2022 Office Visit Dermatology Ambreen Burroughs MD [facility] [address] SHAYY CASTILLO-DERMAT [place], [place] [address] (Wo rk) 10/02/2022 Office Visit Pulmonology Laney Calhoun M D [facility] Pulmonary Mati thornton [place], [place] [address] (Wo rk) 11/07/2022 Office Visit Ophthalmology Gifty Bernal MD [facility] [place], [place] [address] (Wo rk) documented as of this encounter Procedures Procedure Name Priority Date/Time Associated Diagnosis Comme nts MRI UPPER EXTREMITY Routine 11/07/2021 9:09 AM Dermatomyositis Results for this NON JOINT WO EST procedure are i n CONTRAST the results section. documented in this encounter Results MRI Upper Extremity Non Joint wo Contrast (11/07/2021 9:09 AM EST) Anatomical Region Laterality Modality Shoulder, Arm, Elbow, Forearm, Wrist, Hand Magnetic Resonance Specimen (Source) Anatomical Location Collection Method / Collectio n Time Received Time / Laterality Volume Impressions 11/10/2021 3:09 PM EST impression: 1. ??No soft tissue mass or abnormal sig nal. 2. ??Diffuse slight decrease T1 signal o f the marrow of RIGHT humerus likely represents conversion to hematopoietic m arrow. Finding is nonspecific and can be seen in anemia. Consider clinical correl ation if indicated. I discussed these results with Dr. Savi Herron on 11/10/2021 12:30 PM and verified that (s)he understood these res ults. Thank you for letting us participate in the care of this patient. ??If you are a health care provider and have any questi ons regarding this report, please contact the number below. ??For patients who have questions please contact the health career resource technician that requested your imaging first. ? Narrative 11/10/2021 3:09 PM EST EXAMINATION: MRI CHEST WO CONTRAST CLINICAL HISTORY: Inflammatory or immune myopathy, lady with dermatomyositis and upper extremity pain. Hard to clinically determine if this is muscle or shoulder joint. CK normal. Skin and muscles are t jose. please scan from top of shoulders through per ordering provider technique: Noncontrast images of RIGHT shoulder and humerus were acquired. Images were acquired from the shoulder to distal hum eral condyles. COMPARISON: None findings: OSSEOUS STRUCTURES: No fracture or osteitis or focal lesion of bone Diffuse decrease T1 marrow signal which remains brighter than surrounding muscle. The STIR signal marrow signal is intermediate. Finding likely represents residual hematopoietic marrow or hematop oietic hyperplasia.. SOFT TISSUES: No soft tissue mass or abnormal signal. MUSCLES: Normal muscle signal TENDONS: No displaced tendon seen. Axilla-a few axillary lymph nodes have n onaggressive features containing central fatty clefts. Glenohumeral joint-evaluation is limited on this large field view imaging. There is a glenohumeral joint effusion. Savi Herron MD IMG MRI ORDERABLES documented in this encounter Visit Diagnoses Diagnosis Dermatomyositis documented in this encounter Care Teams Foreign Student Adviser Relationship Specialty Start Date End Date Samantha Michelle MD PCP - General 09/14/[address] [place] [id number] documented as of this encounter
--- OUTSIDE RECORDS SUMMARY | 2022-09-15 01:25 | XMS_ITS | Encounter Summary ---
:1955 Author Organization [facility] [place] [address] Care Team Providers Name Role Phone Samantha Michelel MD Primary Care Provider Encounter Details Date Type Department Care Team Description 03/31/2021 Telephone Dermatology at [facility] Ambreen Burroughs MD [address] [place] [address] [facility][1]-DERMATOLGY [phone], [place] [address] (Wo rk) Social History Tobacco [...] Notes Telephone Encounter - Lisset Escoto - 03/31/2021 11:12 AM EDT ----- Message from Yuliana Barboza sent at 03/29/2021 3:42 PM EDT ----- 2 months for derm-rheum Telephone Encounter - Lisset Escoto - 03/31/2021 11:12 AM EDT I tried calling Brandi Ruiz to schedule derm/rheum clinic in April but was asked to enter a remoteaccess code which I do not have. documented in this encounter Plan of Treatment Upcoming Encounters Date Type Specialty Care Team Description 09/26/2022 Office Visit Dermatology Ambreen Burroughs MD [facility] [address]-DERMAT [address], [place] [address] (Wo rk) 10/02/2022 Office Visit Pulmonology Laney Calhoun M D [facility] Pulmonary Medicguido thornton [place], [place] [address] (Wo rk) 11/07/2022 Office Visit Ophthalmology Gifty Bernal MD [facility] [place], [place] [address] (Wo rk) documented as of this encounter Visit Diagnoses Not on filedocumented in this encounter Care Teams Wastewater Engineer Relationship Specialty Start Date End Date Samantha Michelle MD PCP - General 09/14/11 [address] [place] [address] documented as of this encounter
--- OUTSIDE RECORDS SUMMARY | 2022-09-15 01:25 | XMS_ITS | Encounter Summary ---
:1955 Author Organization [facility] [place] [address] Care Team Providers Name Role Phone Samantha Michelle MD Primary Care Provider Reason for Visit Reason Onset Date Comments Medication Refill 02/13/2020 Encounter Details Date Type Department Care Team Description 02/13/2020 Refill Dermatology at [facility] Ambreen Thomas MD Dermatomyositis [address] [place] [address] [facility] [phone] [place], [place] [address] (Wo rk) Social History Tobacco Use Types Packs/Day Years Used Date Former Smoker Cigarettes 0.25 7 Quit: 02/07/19 76 Smokeless Tobacco: Never Used Alcohol Use Standard Drinks/Week Comments No 0 (1 standard drink = 0.6 oz pure alcoho l) Sex Assigned at Date Recorded Female 03/23/2021 8:16 AM EDT documented as of this encounter Miscellaneous Notes [facility]13/[facility] 12:29 PM EDT Patient requests a refill of hydroxychloroquine (Plaquenil) for dermatomyositis. Order prepped and pended to Dr. Burroughs to review. - Last appointment: 02/11/2020 - Next appointment: No scheduled appointment on file - Pharmacy: [facility] - [address] Patient would like a refill as her pharmacy requested for a 90 day refill because of the shortage. LAITH Mcmanus documented in this encounter Plan of Treatment Upcoming Encounters Date Type Specialty Care Team Description 09/26/2022 Office Visit Dermatology Ambreen Burroughs MD [facility] [address] SHAYY CASTILLO-DERMAT [place], [place] [address] (Wo rk) 10/02/2022 Office Visit Pulmonology Laney Calhoun M D [facility] Pulmonary Medici hillary [place], [place] [address] (Wo rk) 11/07/2022 Office Visit Ophthalmology Gifty Bernal MD [facility] [place], [place] [address] (Wo rk) documented as of this encounter Visit Diagnoses Diagnosis Dermatomyositis documented in this encounter Care Teams Aircraft Load Controller Relationship Specialty Start Date End Date Samantha Michelle MD PCP - General 09/14/11 [address] [place] [address] documented as of this encounter
--- OUTSIDE RECORDS SUMMARY | 2022-09-15 01:25 | XMS_ITS | Encounter Summary ---
:1955 Author Organization [facility] Address [address] [place] [address] Care Team Providers Name Role Phone Samantha Michelle MD Primary Care Provider Reason for Visit Reason Comments Follow-[facility] Encounter Details Date Type Department Care Team Description 06/07/2021 Office Visit Dermatology at Ambreen Fernandes Ia gh risk medication use; Dinesh Arguello MD Dermatomyositis; [address] [facility] Card angioma; [place] [address] [address] Lipoma of right upper extremity [phone] [facility]-DERMATOL[facility] [place], [place] [address] Social History Tobacco Use Types Packs/Day Years Used Date Former Smoker Cigarettes 0.25 7 Quit: 02/07/19 76 Smokeless Tobacco: Never Used Alcohol Use Standard Drinks/Week Comments No 0 (1 standard drink = 0.6 oz pure alcoho l) Sex Assigned at Date Recorded Female 03/23/2021 8:16 AM EDT documented as of this encounter Progress Notes Ambreen Burroughs MD - 06/07/2021 3:30 PM EDT Images from the original note were not included. DERMATOLOGY-RHEUMATOLOGY SPECIALTY CLINIC NOTE Date of Service: 06/07/2021 Brandi Ruiz : 1955 Provider: Ambreen Burroughs MD Visit conducted in conjunction with Savi Herron MD, of Rheumatology Please see her same-day medical note Chief Complaint Patient presents with ??? 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 Patient [...] anti-LORI antibody RF mildly elevated, elevated CRP CK WNL Imaging, additional workup/studies -??05/19/19: ???Lesions in the liver based on??CT??scan of chest/abdomen/pelvis - 05/19/19: CT - 06/02/19 and 09/01/19: MRI of right lower extremity??negative for myositis, but did show a soft tissue mass??- seen by ortho 10/2019 - 05/30/19: PET scan, soft tissue density in the anterior uterine wall suggestive of a fibroid - 02/11/20: PFT - normal - 08/2020: Mammogram - Pending transvaginal ultrasound, right thigh MRI, and PET/CT Previous treatments Triamcinolone ointment Diclofenac gel Synalar solution Current treatments Plaquenil since 04/2019 Meloxicam, 12/28/2020-present Methotrexate 15 mg weekly Malignancy screening (dermatomyositis only) Patient Preferences Preferred name Brandi Preferred contact method [] Home [x] Cell [x] myD-H [] Other: Permission to leave detailed message including results [x] Yes [] No Permission to discuss care with No Preferred pharmacy [facility] DARIA Kilgore Joseph is a 66 y.o. female, established patient, seen today in the Dermatology-Rheumatology clinic for continued management of dermatomyositis. Last seen in this clinic: 03/29/21 - Condition better/worse/stable: Feels better on MTX, particularly her MSK pain, although still appreciates rash on arms and face - Interval changes in health: - Recent dental surgeries + bone graft for abscesses, broken crown - Did not take methotrexate doses x 2 weeks while on prophylactic oral clindamycin (knee surgery) - Received COVID vaccines in November - Relevant medications: - Plaquenil 200 mg BID - Methotrexate 15 mg weekly - Gabapentin 100 mg daily - Meloxicam 15 mg daily - Fluocinolone solution PRN (rarely) - Triamcinolone ointment PRN (occasionally at night when itchy) - Medication sfx?: Denies - Refills requested: Denies - Last labs: 03/29/21; CK and aldolase WNL - Specific concerns today: - Growing, non-tender lump on the right forearm x several years MEDS Current Outpatient Medications Medication Sig Dispense Refill ??? hydrOXYchloroQUINE (Plaquenil) 200 mg Tablet Take 1 tablet by mouth 2 times daily. Indications: dermatomyositis 60 tablet 3 ??? metHOTREXate 2.5 mg Tablet Take 6 tablets by mouth once a week. 24 tablet 2 ??? folic acid (Folvite) 1 mg Tablet [...] 1 puff into the lungs daily. (Patient not taking: Reported on 03/29/2021) 1 each 5 ??? fluticasone propionate (FLONASE) 50 mcg/actuation [place], Suspension 2 sprays by Each Nare route daily. (Patient not taking: Reported on 03/29/2021) 1 each 3 ??? gabapentin (NEURONTIN) 300 mg Capsule 100 mg. ??? polyethylene glycol (MIRALAX) 17 gram Powder [...] ??? Sulfite ??? Vancomycin Hives [facility] Patient Active Problem List Diagnosis Code ??? Anemia D64.9 ??? Hypothyroidism E03.9 ??? Anxiety F41.9 ??? SVT (supraventricular tachycardia) I47.1 ??? Hypothyroid E03.9 ??? History of basal cell carcinoma Z85.828 ??? History of bilateral knee replacement Z96.653 ??? Mild intermittent asthma, uncomplicated J45.20 ROS General: Feeling well Skin: Denies other skin complaints EXAM General: NAD, pleasant, cooperative ?? Skin: A focused skin examination of the??arms, neck, face, chest, hands, and arms, significant for??the following: ASSESSMENT/PLAN A. Dermatomyositis - Patchy erythema on the bilateral arms and minor erythema on the face; R>L central facial erythema; scalp and eyelids clear. Right 5th nailfold normal. Left 2nd and 4th nailfoldshave minor changes. She notes improvement in MSK pain on MTX, although her skin has not substantially improved. - Reviewed labs from 03/29/21. - Continue and increase Rx methotrexate to 20 mg weekly. - Continue Rx folic acid 1 mg daily. - Continue Rx hydroxychloroquine 200 mg PO BID - Continue Rx fluocinolone (Synalar) 0.01% solution: Apply topically to scalp/ears 1-2x/day for up to 2 weeks when flaring; then use 2-3x/week for maintenance. May apply at night and wash out in morning. - Continue meloxicam (prescribed by Dr. Herron) - Imaging (ordered previously): Transvaginal US, MRI of the right thigh - Labs: CBC, CMP B. Lipoma - 2 x 3 cm rubbery, subcutaneous nodule on the right forearm. - Will continue to monitor. Discussed warning s/s which should prompt follow up such as rapid growthor change C. Card Angioma - Bright red, well-demarcated papule on the right upper arm. - Discussed benign nature of lesion and provided reassurance. No treatment necessary at this time. Figure 1 Figure 2 Photo(s) taken and charted with patient's verbal consent. Follow Up: RTC in July 2021 in: [x] Dermatology-Rheumatology clinic [] Dr. Bruroughs dermatology clinic [] Dr. Herron rheumatology clinic in [place] [x] Reminder placed in system [] Appointment scheduled before exiting LAITH Barnett and Yuliana Barboza have performed the documentation for this encounter in the presence of and acting as scribes for AMBREEN BURROUGHS MD. I performed the above scribed service and agree with the accuracy of the documentation in this encounter. Ambreen Burroughs MD Contract Administrator of Dermatology Department of Dermatology [facility] cc: Samanhta Michelle MD documented in this encounter Plan of Treatment Upcoming Encounters Date Type Specialty Care Team Description 09/26/2022 Office Visit Dermatology Ambreen Burroughs MD [facility] [address]-DERMAT [place], [place] [address] (Wo rk) 10/02/2022 Office Visit Pulmonology Laney Calhoun M D [facility] Pulmonary Medicguido thornton [place], [place] [address] (Wo rk) 11/07/2022 Office Visit Ophthalmology Gifty Bernal MD [facility] [place], [place] [address] (Wo rk) documented as of this encounter Procedures Procedure Name Priority Date/Time Associated Comments Diagnosis HEMOGRAM Routine 06/07/2021 4:40 PM High risk Results f or this EDT medication use procedure are in the results section. DIFFERENTIAL, Routine 06/07/2021 4:40 PM High risk Results for this AUTOMATED EDT medication use procedure are in the results section. HC CBC,PLT & AUTO Routine 06/07/2021 4:40 PM High risk DIFF EDT medication use HC VENIPUNCTURE Routine 06/07/2021 4:40 PM High risk Result s for this EDT medication use procedure are in the results section. documented in this encounter Results (ABNORMAL) Differential, Automated (06/07/2021 4:40 PM EDT) [facility] Method Time Signature Neutrophils % 70.5 % [facility] Neutr Abs (ANC) 7.41 (H) 1.70 - [facility] 6.10 [facility] x10(3)/[facility] L LABORATORY Lymphocytes % 19.9 % [facility] Lymphocytes Abs 2.1 0.9 - 3.2 [facility] x10(3)/[facility] LABORATORY Monocytes % 5.1 % [facility] Monocyte Abs 0.5 0.3 - 0.9 [facility] x10(3)/[facility] LABORATORY Eosinophils % 3.6 % [facility] Eosinophils Abs 0.4 0.0 - 0.4 [facility] x10(3)/[facility] LABORATORY Basophils % 0.3 % [facility] Basophils Abs 0.0 0.0 - 0.1 [facility] x10(3)/[facility] LABORATORY Immature Gran % 0.60 % [facility] Comment: Immature granulocytes(IG's)percentage an d absolute count will include metamyelocytes, myelocytes, and promyelo cytes. Blood smears from CBCs yielding IG's will be scanned manually for concor dance. If this scan disagrees with the automated IG or if promyelocytes are not ed, a manual differential will be performed. Kavitha Gran Abs 0.06 (H) 0.00 - 0.04 x10(3)/[facility] LABORATORY Specimen Anatomical Collection Method Collection Time Receive d Time (Source) Location / / Volume Laterality Blood 06/07/2021 4:40 PM 6:11 EDT PM EDT Resulting Agency Comment Spec In Lab Ambreen Burroughs MD HEMATOLOGY ORDERABLES Performing Organization Address City/State/[place] [address] (ABNORMAL) Hemogram (06/07/2021 4:40 PM EDT) Analysis Performed At Patho logist Time Signature WBC 10.5 (H) 4.0 - 9.5 [facility] x10(3)/[facility] LABORATORY RBC 4.81 4.00 - [facility] x10(6)/[facility] LABORATORY Hemoglobin 12.2 11.7 - [facility] 15.5 gm/dL [facility] Hematocrit 39.4 35.7 - [facility] 45.8 % [facility] MCV 81.9 (L) 82.6 - [facility] 94.4 [facility] LABORATORY MCH 25.4 (L) 27.1 - [facility] 32.0 pg [facility] MCHC 31.0 (L) 31.7 - [facility] 35.0 gm/dL [facility] Platelets 276 145 - 357 [facility] x10(3)/[facility] LABORATORY RDWSD 55.5 (H) 37.0 - [place] J[facility] 46.0 [facility] LABORATORY RDWCV 18.7 (H) 11.5 - [facility] 14.1 % [facility] MPV 10.1 7.6 - 12.9 [facility] LABORATORY nRBC % Auto 0.0 % [facility] nRBC Abs Auto 0.000 0.000 - [facility] 0.000 [facility] x10(3)/[facility] LABORATORY Specimen Anatomical Collection Method Collection Time Receive d Time (Source) Location / / Volume Laterality Blood 06/07/2021 4:40 PM 6:11 EDT PM EDT Resulting Agency Comment Spec In Lab Ambreen Burroughs MD HEMATOLOGY ORDERABLES Performing Organization Address City/State/[place] [address] (ABNORMAL) Comprehensive metabolic panel (non-fasting) (06/07/2021 4:40 PM EDT) athologist Signature Glucose Lvl 108 65 - 199 [facility] mg/dL [facility] Comment: Diabetes: >=200 mg/dL plus symp toms BUN 13 8 - 18 mg/dL [facility] Creatinine 0.65 (L) 0.70 - 1.20 mg/dL [facility] Sodium 140 135 - 145 mmol/L [facility] Potassium 4.6 3.5 - 5.0 mmol/L [facility] Comment: Please note: ??Patients with WBC >100,00 0 may have falsely elevated Potassium levels. ??For accurate Potassium quantif ication in these patients send serum separator tube (gold top) for subsequent determinations. ??Contact the Clinical Chemistry Laboratory if there are any qu estions. Chloride 102 98 - 107 mmol/L [facility] CO2 27 22 - 31 mmol/L [facility] Anion Gap 11 5 - 15 mmol/L [facility] Calcium 10.8 (H) 8.5 - 10.5 mg/dL [facility] Total Protein 7.7 6.1 - 8.0 gm/dL [facility] Albumin 4.5 3.2 - 5.2 gm/dL [facility] AST 16 0 - 30 unit/L [facility] ALT 14 0 - 30 unit/L [facility] Alk Phos 106 (H) 35 - 105 unit/L [facility] Total Bilirubin 0.3 0.2 - 1.3 mg/dL [facility] Estimated GFR 93 >=60 mL/min/1.73 m?? [facility] Comment: This patient? s estimated glomerular filtration rate (eGFR) is between 93 mL/min/1.73 m2 (patients with less muscl e mass) and 108 mL/min/1.73 m2 (patients with more muscle mass) as dete rmined by the CKD-EPI equation. Assessment of eGFR is not appropriate wh en creatinine concentrations are rapidly changing. For clinical decisions where creatinine clearance will affect therapy, a 24-hour urine creatinine andrzej vora may be advised. Assignment of CKD stage 1 - 5 for patien ts with an eGFR near the transition point between stages may be based on cli nical assessment of muscle mass and symptoms in addition to eGFR. Specimen Anatomical Collection Method Collection Time Receive d Time (Source) Location / / Volume Laterality Blood 06/07/2021 4:40 PM 6:07 EDT PM EDT Resulting Agency Comment Spec In Lab Ambreen Burroughs MD CHEMISTRY ORDERABLES Performing Organization Address City/State/[place] [address] documented in this encounter Visit Diagnoses Diagnosis High risk medication use Encounter for long-term (current) use of other medications Dermatomyositis Card angioma Nevus, non-neoplastic Lipoma of right upper extremity Lipoma of other specified sites documented in this encounter Care Teams Caustic Strength Inspector Relationship Specialty Start Date End Date Samantha Michelle MD PCP - General 09/14/11 [address] [place] [address] documented as of this encounter
--- OUTSIDE RECORDS SUMMARY | 2022-09-15 01:25 | XMS_ITS | Encounter Summary ---
:1955 Author Organization [facility] [place] [address] Care Team Providers Name Role Phone Samantha Michelle MD Primary Care Provider Reason for Visit Reason Comments Follow-up Encounter Details Date Type Department Care Team Description 03/29/2021 Office Visit Dermatology at Ambreen Fernandes, Dermatomyositis Dinesh FREEMAN [address] [place] [address] [facility] [phone] [place], [place] [address] (Wo rk) Social History Tobacco Use Types Packs/Day Years Used Date Former Smoker Cigarettes 0.25 7 Quit: 02/07/19 75 Smokeless Tobacco: Never Used Alcohol Use Standard Drinks/Week Comments No 0 (1 standard drink = 0.6 oz pure alcoho l) Sex Assigned at Date Recorded Female 03/23/2021 8:16 AM EDT documented as of this encounter Progress Notes Ambreen Burroughs MD - 03/29/2021 3:00 PM EDT Images from the original note were not included. DERMATOLOGY-RHEUMATOLOGY SPECIALTY CLINIC NOTE Date of Service: 03/29/2021 Brandi Ruiz : 1955 Provider: Ambreen Burroughs MD Visit conducted in conjunction with Savi Herron MD, of Rheumatology Please see her same-day medical note Chief Complaint Patient presents with ??? 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 HPI Brandi Ruiz is a 65 y.o. female, established patient, seen today in the Dermatology-Rheumatology clinic for continued management of dermatomyositis. Last seen in this clinic: 12/28/20 - Condition better/worse/stable: mostly stable - Interval changes in health: received both COVID-19 vaccinations - Relevant medications: - Plaquenil 200 mg BID - Gabapentin 100 mg daily - Meloxicam 15 mg daily - Fluocinolone solution PRN - Triamcinolone ointment PRN (very rarely) - Medication sfx?: No - Refills requested: plaquenil - Last labs: 09/28/20 - Specific concerns today: - Patient reports that overall she is stable. She still has some redness on her arms that can be slightly pruritic but is otherwise asymptomatic. She is not currently treating due to mostly asymptomatic nature, but she does have triamcinolone ointment at home to be used as needed. - She has been experiencing some muscle pain in her upper arms that has been present for the past 2 month (worst at night). The pain is intermittently present but has not worsened or improved. Overall she has noticed improvement being on the meloxicam rather than being on diclofenac. - She was seen by ophthalmology today who reassured her that there were no concerning findings on exam today other than early macular degeneration. They recommended that she start Areds supplement. - She feels weak; she cannot get off the floor on her own. MEDS Current Outpatient Medications Medication Sig Dispense Refill ??? meloxicam (MOBIC) 15 mg Tablet Take 1 tablet by mouth daily. 30 tablet 12 ??? hydrOXYchloroQUINE (Plaquenil) 200 mg Tablet Take 1 tablet by mouth 2 times daily. Indications: dermatomyositis 60 tablet 3 ??? diclofenac EC (Voltaren) 75 mg Tablet, [...] daily. Indications: dermatomyositis 270 tablet 0 ??? fluticasone furoate-vilanteroL (Breo Ellipta) 200-25 mcg/dose Disk with Device Inhale 1 puff into the lungs daily. (Patient not taking: Reported on 03/29/2021) 1 each 5 ??? fluticasone propionate (FLONASE) 50 mcg/actuation Mcgraw, Suspension 2 sprays by Each Nare route [...] Anaphylaxis Sulfites ??? Sulfite ??? Vancomycin Hives [facility] Patient Active Problem List Diagnosis Code [...] ?? Skin: A focused skin examination of the??scalp, arms, hands, elbows, lower legs, and chest, significant for??the following: Significant Skin Findings: A. Subtle telangiectatic patches on the arms. Dilation on the left 2nd and 4th and right 5th nailfolds. Subtle erythema and scaling of the scalp (Figures 1 and 2). Figure 1 Figure 2 Photo(s) taken and charted with patient's verbal consent. ASSESSMENT/PLAN A. Dermatomyositis,inadequate control on plaquenil alone - Discussed adding methotrexate. - Start Rx methotrexate 15 mg weekly. Discussed need for routine lab monitoring and risk of liver issues. - Start Rx folic acid 1 mg daily. - Continue Rx hydroxychloroquine 200 mg PO BID - Continue Rx fluocinolone (Synalar) 0.01% solution: Apply topically to scalp/ears 1-2x/day for up to 2 weeks when flaring; then use 2-3x/week for maintenance. May apply at night and wash out in morning. - Continue meloxicam (prescribed by Dr. Herron) - Dr. Herron recommended trial of steroid injections for the shoulders - Imaging: transvaginal ultrasound, MRI of the right thigh, PET/CT - Labs: CBC, CMP, CK, aldolase 35 minutes spent in chart review, visit, interdisciplinary discussion with Dr. Herron, coordination of care, and documentation. Follow Up: RTC in 2 months in: [x] Dermatology-Rheumatology clinic [] Dr. Burroughs dermatology clinic [] Dr. Herron rheumatology clinic in [place] [x] Reminder placed in system [] Appointment scheduled before exiting Note initiated by: Karmen Tijerina CMA Scribe documenting this encounter for and in the presence of Dr. Burroughs: Yuliana Barboza I performed the above scribed service and agree with the accuracy of the documentation in this encounter. Ambreen Burroughs MD [facility] Supervisor of Dermatology Department of Dermatology [facility] cc: Samantha Michelle MD Ambreen Burroughs MD - 03/29/2021 3:00 PM EDT Labs reviewed. No change in current treatment plan - OK to start MTX as discussed at office visit documented in this encounter Plan of Treatment Upcoming Encounters Date Type Specialty Care Team Description 09/26/2022 Office Visit Dermatology Ambreen Burroughs MD [facility] DR SHAYY CASTILLO-DERMAT [place] [address] (Wo rk) 10/02/2022 Office Visit Pulmonology Laney Calhoun M D [facility] Pulmonary [place]guido [place] [address] (Wo rk) 11/07/2022 Office Visit Ophthalmology Gifty Bernal MD [facility] [place], [place] [address] (Wo rk) documented as of this encounter Procedures Procedure Name Priority Date/Time Associated Diagnosis Comme nts HEMOGRAM Routine 03/29/2021 4:01 Dermatomyositis Results f or this PM EDT procedure are i n the results section. DIFFERENTIAL, Routine 03/29/2021 4:01 Dermatomyositis Results for this AUTOMATED PM EDT procedure are i n the results section. HC [facility] ALDOLASE Routine 03/29/2021 4:01 Dermatomyositis Result s for this PM EDT procedure are i n the results section. HC CBC,PLT & AUTO Routine 03/29/2021 4:01 Dermatomyositis DIFF PM EDT HC CREATINE Routine 03/29/2021 4:01 Dermatomyositis Results f or this PHOSPHOKINASE, SERUM PM EDT procedu re are in the results section. HC VENIPUNCTURE Routine 03/29/2021 4:01 Dermatomyositis Result s for this PM EDT procedure are i n the results section. documented in this encounter Results (ABNORMAL) Differential, Automated (03/29/2021 4:01 PM EDT) [facility] Method Time Signature Neutrophils % 69.8 % [facility] Neutr Abs (ANC) 6.42 (H) 1.70 - [facility] 6.10 [facility] x10(3)/[facility] LABORATORY Lymphocytes % 20.9 % [facility] Lymphocytes Abs 1.9 0.9 - 3.2 [facility] x10(3)/[facility] LABORATORY Monocytes % 5.3 % [facility] Monocyte Abs 0.5 0.3 - 0.9 [facility] x10(3)/[facility] LABORATORY Eosinophils % 3.2 % [facility] Eosinophils Abs 0.3 0.0 - 0.4 [facility] x10(3)/[facility] LABORATORY Basophils % 0.5 % [facility] Basophils Abs 0.0 0.0 - 0.1 [facility] x10(3)/[facility] LABORATORY Immature Gran % 0.30 % [facility] Comment: Immature granulocytes(IG's)percentage an d absolute count will include metamyelocytes, myelocytes, and promyelo cytes. Blood smears from CBCs yielding IG's will be scanned manually for concor dance. If this scan disagrees with the automated IG or if promyelocytes are not ed, a manual differential will be performed. Kavitha Gran Abs 0.03 0.00 - 0.04 x10(3)/[facility] LABORATORY Specimen Anatomical Collection Method Collection Time Receive d Time (Source) Location / / Volume Laterality Blood specimen 03/29/2021 4:01 PM 021 6:47 (specimen) EDT PM EDT Resulting Agency Comment Spec In Lab Ambreen Burroughs MD HEMATOLOGY ORDERABLES Performing Organization Address City/State/[place] [address] (ABNORMAL) Hemogram (03/29/2021 4:01 PM EDT) Analysis Performed At Patho logist Time Signature WBC 9.2 4.0 - 9.5 [facility] x10(3)/[facility] LABORATORY RBC 4.82 4.00 - [facility] 5.21 [facility] x10(6)/[facility] LABORATORY Hemoglobin 12.1 11.7 - [facility] 15.5 gm/dL [facility] Hematocrit 38.7 35.7 - [facility] 45.8 % [facility] MCV 80.3 (L) 82.6 - [facility] 94[facility]4 [facility] LABORATORY MCH 25.1 (L) 27.1 - [facility] 32.0 pg [facility] MCHC 31.3 (L) 31.7 - [facility] JERRY 35.0 gm/dL [facility] Platelets 284 145 - 357 [facility] x10(3)/[facility] LABORATORY RDWSD 47.5 (H) 37.0 - [facility] 46.0 [facility] LABORATORY RDWCV 16.3 (H) 11.5 - [facility] 14.1 % [facility] MPV 11.1 7.6 - 12.9 [facility] LABORATORY nRBC % Auto 0.0 % [facility] nRBC Abs Auto 0.000 0.000 - [facility] 0.000 [facility] x10(3)/[facility] LABORATORY Specimen Anatomical Collection Method Collection Time Receive d Time (Source) Location / / Volume Laterality Blood specimen 03/29/2021 4:01 PM 021 6:47 (specimen) EDT PM EDT Resulting Agency Comment Spec In Lab Ambreen Burroughs MD HEMATOLOGY ORDERABLES Performing Organization Address City/State/[place] [address] (ABNORMAL) Comprehensive metabolic panel (non-fasting) (03/29/2021 4:01 PM EDT) P athologist Signature Glucose Lvl 130 65 - 199 [facility] mg/dL [facility] Comment: Diabetes: >=200 mg/dL plus symp toms BUN 12 8 - 18 mg/dL [facility] Creatinine 0.64 (L) 0.70 - 1.20 mg/dL [facility] Sodium 139 135 - 145 mmol/L [facility] Potassium 4.2 3.5 - 5.0 mmol/L [facility] Comment: Please note: ??Patients with WBC >100,00 0 may have falsely elevated Potassium levels. ??For accurate Potassium quantif ication in these patients send serum separator tube (gold top) for subsequent determinations. ??Contact the Clinical Chemistry Laboratory if there are any qu estions. Chloride 104 98 - 107 mmol/L [facility] CO2 27 22 - 31 mmol/L [facility] Anion Gap 8 5 - 15 mmol/L [facility] Calcium 10.4 8.5 - 10.5 mg/dL [facility] Total Protein 7.4 6.1 - 8.0 gm/dL [facility] Albumin 4.2 3.2 - 5.2 gm/dL [facility] AST 16 0 - 30 unit/L [facility] ALT 9 0 - 30 unit/L [facility] Alk Phos 93 35 - 105 unit/L [facility] Total Bilirubin 0.3 0.2 - 1.3 mg/dL [facility] Estimated GFR 94 >=60 mL/min/1.73 m?? [facility] Comment: This patient? s estimated glomerular filtration rate (eGFR) is between 94 mL/min/1.73 m2 (patients with less muscl e mass) and 109 mL/min/1.73 m2 (patients with more muscle mass) as dete rmined by the CKD-EPI equation. Assessment of eGFR is not appropriate wh en creatinine concentrations are rapidly changing. For clinical decisions where creatinine clearance will affect therapy, a 24-hour urine creatinine andrzej diony may be advised. Assignment of CKD stage 1 - 5 for patien ts with an eGFR near the transition point between stages may be based on cli nical assessment of muscle mass and symptoms in addition to eGFR. Specimen Anatomical Collection Method Collection Time Receive d Time (Source) Location / / Volume Laterality Blood specimen 03/29/2021 4:01 PM 021 6:42 (specimen) EDT PM EDT Resulting Agency Comment Spec In Lab Ambreen Burroughs MD CHEMISTRY ORDERABLES Performing Organization Address City/State/[place] [address] Aldolase (03/29/2021 4:01 PM EDT) athologist Signature Aldolase 4.1 <7.7 unit/L [facility] Comment: Test Performed by: [place] [address] Network Operations Analyst: Christophe Seymour M.D. Ph. D.; CLIA# [id number] Specimen Anatomical Collection Method Collection Time Receive d Time (Source) Location / / Volume Laterality Blood specimen 03/29/2021 4:01 PM 021 9:45 (specimen) EDT AM EDT Resulting Agency Comment Spec In Lab Ambreen Burroughs MD CHEMISTRY ORDERABLES Performing Organization Address City/State/[place] [address] CK (03/29/2021 4:01 PM EDT) P athologist Signature CK, Total 60 0 - 160 [facility] unit/L [facility] Specimen Anatomical Collection Method Collection Time Receive d Time (Source) Location / / Volume Laterality Blood specimen 03/29/2021 4:01 PM 021 6:42 (specimen) EDT PM EDT Resulting Agency Comment Spec In Lab Ambreen Burroughs MD CHEMISTRY ORDERABLES Performing Organization Address City/State/[place] [address] documented in this encounter Visit Diagnoses Diagnosis Dermatomyositis documented in this encounter Care Teams Sericulture Teacher Relationship Specialty Start Date End Date Samantha Michelle MD PCP - General 09/14/11 [address] [place] [address] documented as of this encounter
--- OUTSIDE RECORDS SUMMARY | 2022-09-15 01:25 | XMS_ITS | Encounter Summary ---
:1955 Author Organization [facility] [place] [address] Care Team Providers Name Role Phone Samantha Michelle MD Primary Care Provider Reason for Visit Reason Onset Date Comments Pre Procedure Call 03/24/2020 Encounter Details Date Type Department Care Team Description 03/24/2020 Telephone Dermatology at [facility] Cathy Reynoso I, Pre Procedure Call Road [facility] [address] [place] [address] Social History Tobacco Use Types Packs/Day Years Used Date Former Smoker Cigarettes 0.25 7 Quit: 02/07/19 76 Smokeless Tobacco: Never Used Alcohol Use Standard Drinks/Week Comments No 0 (1 standard drink = 0.6 oz pure alcoho l) Sex Assigned at Date Recorded Female 03/23/2021 8:16 AM EDT documented as of this encounter Miscellaneous Notes Telephone Encounter - Cathy Reynoso CMA - 03/24/2020 10:12 AM EDT Unable to reach patient for pre op survey, message left to return call or complete pre op survey online through [facility]. Patient scheduled for Mohs surgery with Dr Weinstein, 03/25/2020. documented in this encounter Plan of Treatment Upcoming Encounters Date Type Specialty Care Team Description 09/26/2022 Office Visit Dermatology Ambreen Burroughs MD [facility] [address]-DERMAT BERTHA [place], [place] [address] (Wo rk) 10/02/2022 Office Visit Pulmonology Laney Calhoun M D [facility] Pulmonary Medici hillary [place], [place] [address] (Wo rk) 11/07/2022 Office Visit Ophthalmology Gifty Bernal MD [facility] [place], [place] [address] (Wo rk) documented as of this encounter Visit Diagnoses Not on filedocumented in this encounter Care Teams [employer] Physical Education Teacher Relationship Specialty Start Date End Date Samantha Michelle MD PCP - General 09/14/11 [address] [place] [address] documented as of this encounter
--- OUTSIDE RECORDS SUMMARY | 2022-09-15 01:25 | XMS_ITS | Encounter Summary ---
:1955 Author Organization [facility] [place] [address] Care Team Providers Name Role Phone Samantha Michelle MD Primary Care Provider Reason for Visit Reason Onset Date Comments Medication Refill 05/19/2021 Encounter Details Date Type Department Care Team Description 05/19/2021 Refill Dermatology at [facility] Ambreen Burroughs MD Dermatomyositis [address] [place] [address] SHAYY CASTILLO-DERMATOLGY [phone] [place], [place] [address] (Wo rk) Social History Tobacco [...] 09/26/2022 Office Visit Dermatology Ambreen Burroughs MD [facility] DR SHAYY CASTILLO-DERMAT [place], [place] [address] (Wo rk) 10/02/2022 Office Visit Pulmonology Laney Calhoun M D [facility] Pulmonary Medici [place], [place] [address] (Wo rk) 11/07/2022 Office Visit Ophthalmology Gifty Bernal MD [facility] [place] [address] (Wo rk) documented as of this encounter Visit Diagnoses Diagnosis Dermatomyositis documented in this encounter Care Teams Mixer Operator Vacuum Pan Salt Relationship Specialty Start Date End Date Samantha Michelle MD PCP - General 09/14/11 [address] [place] [address] documented as of this encounter
--- OUTSIDE RECORDS SUMMARY | 2022-09-15 01:25 | XMS_ITS | Encounter Summary ---
:1955 Author Organization [facility] [place] [address] Care Team Providers Name Role Phone Samantha Michelle MD Primary Care Provider Reason for Visit Reason Onset Date Comments Results 11/10/2021 Please call [phone] Dr. Fletcher Encounter Details Date Type Department Care Team Description 11/10/2021 Telephone Primary Care at Angela Soto (Please call [facility] [phone] [place] [address] Justine ) [place] [address] Social History Tobacco Use Types Packs/Day Years Used Date Former Smoker Cigarettes 0.25 7 Quit: 02/07/19 76 Smokeless Tobacco: Never Used Alcohol Use Standard Drinks/Week Comments No 0 (1 standard drink = 0.6 oz pure alcoho l) Sex Assigned at Date Recorded Female 03/23/2021 8:16 AM EDT documented as of this encounter Miscellaneous Notes Telephone Encounter - Angela Monreal - 11/10/2021 11:12 AM EST Secure chat sent: F/u request please have Dr. Savi Herron call Dr. Justine perdomo re: Radiology results [phone] ask for Bessy Henderson who called or Dina documented in this encounter Plan of Treatment Upcoming Encounters Date Type Specialty Care Team Description 09/26/2022 Office Visit Dermatology Ambreen Burroughs MD [facility] DR SHAYY CASTILLO-DERMAT [place]ERTH[place], [place] [address] (Wo rk) 10/02/2022 Office Visit Pulmonology Laney Calhoun M D [facility] Pulmonary Medicguido thornton [place], [place] [address] (Wo rk) 11/07/2022 Office Visit Ophthalmology Gifty Bernal MD [facility] [place], [place] [address] (Wo rk) documented as of this encounter Visit Diagnoses Not on filedocumented in this encounter Care Teams Ukrainian Folk Arts Instructor Relationship Specialty Start Date End Date Samantha Michelle MD PCP - General 09/14/11 [address] [place] [address] documented as of this encounter
--- OUTSIDE RECORDS SUMMARY | 2022-09-15 01:25 | XMS_ITS | Encounter Summary ---
:1955 Author Organization [facility] [place] [address] Care Team Providers Name Role Phone Samantha Michelle MD Primary Care Provider Encounter Details Date Type Department Care Team Description 03/28/2021 Telephone [facility] at [facility] [place] [address] [facility] [phone] [place], [place] [address] (Wo rk) Social History Tobacco Use Types Packs/Day Years Used Date Former Smoker Cigarettes 0.25 7 Quit: 02/07/19 76 Smokeless Tobacco: Never Used Alcohol Use Standard Drinks/Week Comments No 0 (1 standard drink = 0.6 oz pure alcoho l) Sex Assigned at Date Recorded Female 03/23/2021 8:16 AM EDT documented as of this encounter Miscellaneous Notes Telephone Encounter - Summer Hernández - 03/28/2021 9:44 AM EDT Called patient to pre-chart - no answer, left message. documented in this encounter Plan of Treatment Upcoming Encounters Date Type Specialty Care Team Description 09/26/2022 Office Visit Dermatology Ambreen Burroughs MD [facility] DR SHAYY CASTILLO-DERMAT [place], [place] [address] (Wo rk) 10/02/2022 Office Visit Pulmonology Laney Calhoun M D [facility] Pulmonary Medici [place], [place] 0[address] (Wo rk) 11/07/2022 Office Visit Ophthalmology Gifty Bernal MD [facility] [place], [place] [address] (Wo rk) documented as of this encounter Visit Diagnoses Not on filedocumented in this encounter Care Teams Ski Tow Operator Relationship Specialty Start Date End Date Samantha Michelle MD PCP - General 09/14/11 [address] [place] [address] documented as of this encounter
--- OUTSIDE RECORDS SUMMARY | 2022-09-15 01:25 | XMS_ITS | Encounter Summary ---
:1955 Author Organization [facility] [place] [address] Care Team Providers Name Role Phone Samantha Michelle MD Primary Care Provider Encounter Details Date Type Department Care Team Description 11/11/2020 Telephone Rheumatology at [facility] [place] [address] Social History Tobacco Use Types Packs/Day Years Used Date Former Smoker Cigarettes 0.25 7 Quit: 02/07/19 76 Smokeless Tobacco: Never Used Alcohol Use Standard Drinks/Week Comments No 0 (1 standard drink = 0.6 oz pure alcoho l) Sex Assigned at Date Recorded Female 03/23/2021 8:16 AM EDT documented as of this encounter Miscellaneous Notes Telephone Encounter - Nati Alba - 11/11/2020 10:03 AM EST LM with to have pt call us back to schedule follow up visit requested through [facility] documented in this encounter Plan of Treatment Upcoming Encounters Date Type Specialty Care Team Description 09/26/2022 Office Visit Dermatology Ambreen Burroughs MD [facility] DR SHAYY CASTILLO-DERMAT [place], [place] [address] (Wo rk) 10/02/2022 Office Visit Pulmonology Laney Calhoun M D [facility] er Pulmonary [address], [place] [address] (Wo rk) 11/07/2022 Office Visit Ophthalmology Gifty Bernal MD [facility] [place], [place] [address] (Wo rk) documented as of this encounter Visit Diagnoses Not on filedocumented in this encounter Care Teams Appian Bpm Developer Relationship Specialty Start Date End Date Samantha Michelle MD PCP - General 09/14/11 [address] [place] [address] documented as of this encounter
--- OUTSIDE RECORDS SUMMARY | 2022-09-15 01:25 | XMS_ITS | Encounter Summary ---
:1955 Author Organization [place] [address] Care Team Providers Name Role Phone Samantha Michelle MD Primary Care Provider Reason for Visit Reason Comments Follow-up Dermatology-Rheumatology [facility] clinic Encounter Details Date Type Department Care Team Description 08/02/2021 Office Visit Dermatology at [facility] De rmatomyositis; Dinesh Arguello MD High risk medication use [address] [place] [address] [facility] [place], [place] [address] Social History Tobacco Use Types Packs/Day Years Used Date Former Smoker Cigarettes 0.25 7 Quit: 02/07/19 76 Smokeless Tobacco: Never Used Alcohol Use Standard Drinks/Week Comments No 0 (1 standard drink = 0.6 oz pure alcoho l) Sex Assigned at Date Recorded Female 03/23/2021 8:16 AM EDT documented as of this encounter Progress Notes Dee Burroughs MD - 08/02/2021 3:00 PM EDT Images from the original note were not included. DEPARTMENT OF DERMATOLOGY Dermatology-Rheumatology Specialty Clinic Provider: DEE BURROUGHS MD Visit conducted in conjunction with Savi Herron MD of Rheumatology. Please see her same-day medical note Date of Service: 08/02/2021 Preferred name Brandi Preferred contact method for [...] exanthem or drugreaction. Clinicopathologic correlation is recommended. Relevant diagnostic labs (+) JANETH 1:160 Weakly positive anti-LORI-1 antibody RF mildly elevated, elevated CRP CK WNL Imaging, additional workup/studies 05/19/19:?Lesions in the liver based on??CT??scan of chest/abdomen/pelvis 05/19/19: CT?? 06/02/19, 09/01/19, 06/20/21:??MRI of right lower extremity??negative for myositis, but did show a soft tissue mass, most suggestive of a cyst??- seen by Ortho 10/2019 Previous treatments Diclofenac gel Synalar solution Current treatments Plaquenil, since 04/2019 Meloxicam, 12/28/20-present Methotrexate 20 mg weekly Triamcinolone ointment Malignancy screening (dermatomyositis only) 05/30/19: PET scan, soft tissue density in the anterior uterine wall suggestive of a fibroid 02/11/20: PFT - normal 08/2020: mammogram 06/20/21: transvaginal US, fibroid uterus, otherwise normal HPI Brandi Ruiz is a 66 y.o. seen today in the Dermatology-Rheumatology clinic for continued management of dermatomyositis. Last seen in this clinic: 06/07/21 - Condition better/worse/stable: Skin is perhaps slightly worse as skin on the arms is red; however she reports having more energy and being more active around the house and garden this summer - Interval changes in health: 20-pound intentional weight loss using [employer] program - Relevant medications: - Plaquenil 200 mg BID - patient reports taking as 400 mg once daily - Methotrexate 20 mg weekly - Gabapentin 100 mg daily - Meloxicam 15 mg daily - Fluocinolone solution PRN (rarely) - Triamcinolone ointment PRN (occasionally at night when itchy) - Medication sfx?: Denies - Refills requested: Triamcinolone ointment - Last labs: 06/07/21 - Specific concerns today: - Received Moderna booster on 07/28/21; held weekly MTX dose on Sunday - Her scalp is itchy. She uses fluocinolone solution as needed. Medications: Reviewed in eD-H Allergies: Reviewed in eD-H PMH: Amyopathic dermatomyositis Bilateral knee replacement Hypothyroidism Anxiety Anemia Mild asthma ROS: General: Feeling well Skin: Denies other skin complaints Exam: General: NAD, pleasant, cooperative Skin Examination: A focused skin examination of the scalp, face, and upper extremities, significant for the following: Assessment/Plan: A.??Dermatomyositis, ?cutaneous flare secondary to hydroxychoroquine ADR - Increased patchy erythemaon the bilateral arms and minor erythema on the face; Erythema, worse on the right parietal scalp. R>L central facial erythema; Faint pink patches over the PIPs, MCPs; blotchy; cuticular erythema onthe left 1st and 2nd fingers. - She notes improvement in MSK pain on MTX, although her skin has worsened. - Reviewed labs from 03/29/21. - Discussed dermatomyositis study. Will plan to biopsy back and arm and perform blood work at next visit. Paperwork (including copy of consent) - Discontinue Rx hydroxychloroquine. - Continue Rx methotrexate 20 mg weekly. - Continue Rx folic acid 1 mg daily. - Continue Rx fluocinolone (Synalar) 0.01% solution: Apply topically to scalp/ears 1-2x/day for up to 2 weeks when flaring; then use 2-3x/week for maintenance. May apply at night and wash out in morning.?? - Continue meloxicam (prescribed by Dr. Herron) - Refill and continue Rx triamcinolone ointment. - External labs: CBC, CMP (faxed to [facility]) 30 minutes spent in chart review, visit, interdisciplinary discussion with Dr. Herron, coordination of care, and documentation. Follow Up: RTC in 2 months in: [x] Dermatology-Rheumatology clinic [] Dr. Burroughs dermatology clinic [] Dr. Herron rheumatology clinic in [place] [x] Reminder placed in system [] Appointment scheduled before exiting LAITH Barnett and Yuliana Barboza have performed the documentation for this encounter in the presence of and acting as scribes for DEE BURROUGHS MD. I performed the above scribed service and agree with the accuracy of the documentation in this encounter. Dee Burroughs MD Installer of Dermatology Department of Dermatology [facility] cc: Samantha Michelle MD documented in this encounter Plan of Treatment Upcoming Encounters Date Type Specialty Care Team Description 09/26/2022 Office Visit Dermatology Dee Burroughs MD [facility] DR SHAYY CASTILLO-DERMAT [place], [place] [address] (Wo rk) 10/02/2022 Office Visit Pulmonology Laney Calhoun M D [facility] Pulmonary Medicguido thornton [place], [place] [address] (Wo rk) 11/07/2022 Office Visit Ophthalmology Gifty Bernal MD [facility] [place], [place] [address] (Wo rk) documented as of this encounter Visit Diagnoses Diagnosis Dermatomyositis High risk medication use Encounter for long-term (current) use of other medications documented in this encounter Care Teams Net Software Developer Relationship Specialty Start Date End Date Samantha Michelle MD PCP - General 09/14/11 [address] [place] [address] documented as of this encounter
--- OUTSIDE RECORDS SUMMARY | 2022-09-15 01:25 | XMS_ITS | Encounter Summary ---
:1955 Author Organization [facility] [place] [address] Care Team Providers Name Role Phone Samantha Michelle MD Primary Care Provider Reason for Visit Reason Comments Follow-up Encounter Details Date Type Department Care Team Description 11/01/2021 Office Visit Dermatology at [facility] Fernandes Am yopathic dermatomyositis; Dinesh Arguello MD High risk medication use; [address] [facility] [place] [address] [facility] [place], [place] [address] Social History Tobacco Use Types Packs/Day Years Used Date Former Smoker Cigarettes 0.25 7 Quit: 02/07/19 76 Smokeless Tobacco: Never Used Alcohol Use Standard Drinks/Week Comments No 0 (1 standard drink = 0.6 oz pure alcoho l) Sex Assigned at Date Recorded Female 03/23/2021 8:16 AM EDT documented as of this encounter Progress Notes Ambreen Burroughs MD - 11/01/2021 11:30 AM EST Images from the original note were not included. DEPARTMENT OF DERMATOLOGY Dermatology-Rheumatology Specialty Clinic Provider: AMBREEN BURROUGHS MD Visit conducted in conjunction with Savi Herron MD of Rheumatology. Please see her same-day medical note Date of Service: 11/01/21 Preferred name Brandi Preferred contact method for [...] of a cyst??- seen by Ortho 10/2019 MRI of left shoulder scheduled for 11/07/21 Previous treatments Diclofenac gel Synalar solution Plaquenil (04/2019-07/2021) Current treatments Meloxicam, 12/28/20-present Methotrexate 25 mg weekly Triamcinolone ointment Hydroxychloroquine 200 mg BID Malignancy screening (dermatomyositis only) 05/30/19: PET scan, soft tissue density in the anterior uterine wall suggestive of a fibroid 02/11/20: PFT - normal 08/2020: mammogram 06/20/21: transvaginal US, fibroid uterus, otherwise normal HPI Brandi Ruiz is a 66 y.o. seen today in the Dermatology-Rheumatology clinic for continued management of dermatomyositis. Last seen in this clinic: 09/27/21 - Condition better/worse/stable: Pain in the arms and shoulders persists. - Interval changes in health: Yeast infection (noted below). - Relevant medications: - Methotrexate 25 mg weekly (increased at last visit) - Hydroxychloroquine 200 mg BID - Gabapentin 100 mg daily BID - Meloxicam 15 mg daily - Fluocinolone solution PRN (rarely) - Triamcinolone ointment PRN (occasionally at night when itchy) - Medication sfx?: Yeast infections - Last labs: 08/04/21 (CBC, CMP essentially WNL) - Medical refills: No - Specific concerns today: - She reports that she had a yeast infection ~1 month ago, which she treated with a course of fluconazole. She is started to notice a recurrence again and questions whether the yeast infections are related to the high doses of medications that she is on. - Of note, her biopsy sites have been healing well with no issues. Medications: Reviewed in eD-H Allergies: Reviewed in eD-H PMH: Amyopathic dermatomyositis Bilateral knee replacement Hypothyroidism Anxiety Anemia Mild asthma ROS: General: Feeling well Skin: Denies other skin complaints Exam: General: NAD, pleasant, cooperative Skin Examination: A focused skin examination of the chest, scalp, upper extremities, neck, and back, significant for the following: Assessment/Plan: A.??Dermatomyositis - Focal capillary dilation of the left 2nd and right 5th finger. Patchy erythemawith prominent vascularity on the bilateral upper arms and extensor forearms. Her chest, upper back,scalp, elbows, and face are clear. - Patholgy from recent skin biopsy reviewed. Recent bx did not show active inflammation and experiencing side effects in the form of vulvovaginitis from higher dose mtx. Will therefore decrease mtx - Continue Rx hydroxychloroquine 200 mg: Take 1 tablet by mouth twice daily. - Reviewed labs from 08/04/21. - Continue and decrease Rx methotrexate to 20 mg weekly in divided doses. - Continue Rx folic acid 1 mg daily. - Continue Rx fluocinolone (Synalar) 0.01% solution: Apply topically to scalp/ears 1-2x/day for up to 2 weeks when flaring; then use 2-3x/week for maintenance. May apply at night and wash out in morning.?? - Continue meloxicam (prescribed by Dr. Herron); can trial off meloxicam to determine if she finds itbeneficial. - Continue Rx triamcinolone ointment. - MRI of left shoulder scheduled for 11/07/21. - Start Rx fluconazole 150 mg: Take 1 tablet by mouth every 72 hours for 2 doses. For vulvovaginitis. Phone call after the visit to discuss possible qTC prolongation, she will hold Plaquenil, escitalopram, Xanax, and Zofran for the time she is on fluconazole. - Labs: CBC, LFTs, CK Follow Up: RTC in 2-3 months in: [x] Dermatology-Rheumatology clinic [] Dr. Burroughs dermatology clinic [] Dr. Herron rheumatology clinic in [place] [x] Reminder placed in system [] Appointment scheduled before exiting Yuliana Barboza and Karmen Tijerina CMA have performed the documentation for this encounter in the presence of and acting as scribes for AMBREEN BURROUGHS MD. I performed the above scribed service and agree with the accuracy of the documentation in this encounter. Ambreen Burroughs MD Metal Weigher of Dermatology Department of Dermatology [facility] cc: Samantha Michelle MD Ambreen Burroughs MD - 11/01/2021 11:30 AM EST Just a note to let you know I reviewed your recent labs, which were essentially normal. Happy holidays to you. Ambreen Newell documented in this encounter Plan of Treatment Upcoming Encounters Date Type Specialty Care Team Description 09/26/2022 Office Visit Dermatology Ambreen Burroughs MD [facility] DR SHAYY CASTILLO-DERMAT [place], [place] [address] (Wo rk) 10/02/2022 Office Visit Pulmonology Laney Calhoun M D [facility] Pulmonary [place], [place] [address] (Wo rk) 11/07/2022 Office Visit Ophthalmology Gifty Bernal MD [facility] [place], [place] [address] (Wo rk) documented as of this encounter Procedures Procedure Name Priority Date/Time Associated Diagnosis Comme nts HEMOGRAM Routine 11/01/2021 12:39 High risk medication Res ults for this PM EST use procedure are i n the results section. DIFFERENTIAL, Routine 11/01/2021 12:39 High risk medication Re sults for this AUTOMATED PM EST use procedure are i n the results section. HC CBC,PLT & AUTO Routine 11/01/2021 12:39 High risk medicatio n DIFF PM EST use HC CREATINE Routine 11/01/2021 12:39 Amyopathic Results for this PHOSPHOKINASE, PM EST dermatomyositis procedure are in SERUM the results section. HEPATIC FUNCTION Routine 11/01/2021 12:39 High risk medication Results for this PANEL PM EST use procedure are i n the results section. documented in this encounter Results Differential, Automated (11/01/2021 12:39 PM EST) P athologist Signature Neutrophils % 70.3 % [facility] Neutr Abs (ANC) 5.86 1.70 - [facility] 6.[address] [facility] x10(3)/[facility] LABORATORY Lymphocytes % 21.0 % [facility] Lymphocytes Abs 1.8 0.9 - 3.2 [facility] x10(3)/[facility] LABORATORY Monocytes % 3.6 % [facility] Monocyte Abs 0.3 0.3 - 0.9 [facility] x10(3)/[facility] LABORATORY Eosinophils % 4.1 % [facility] Eosinophils Abs 0.3 0.0 - 0.4 [facility] x10(3)/[facility] LABORATORY Basophils % 0.6 % [facility] Basophils Abs 0.0 0.0 - 0.1 [facility] x10(3)/[facility] LABORATORY Immature Gran % 0.40 % [facility] Comment: Immature granulocytes(IG's)percentage an d absolute count will include metamyelocytes, myelocytes, and promyelo cytes. Blood smears from CBCs yielding IG's will be scanned manually for concor dance. If this scan disagrees with the automated IG or if promyelocytes are not ed, a manual differential will be performed. Kavitha Gran Abs 0.03 0.00 - 0.04 x10(3)/[facility] Specimen Anatomical Collection Method Collection Time Receive d Time (Source) Location / / Volume Laterality Blood 11/01/2021 12:39 11/01/2021 3:59 PM EST PM EST Resulting Agency Comment Spec In Lab Ambreen Burroughs MD HEMATOLOGY ORDERABLES Performing Organization Address City/State/[place] [address] (ABNORMAL) Hemogram (11/01/2021 12:39 PM EST) Analysis Performed At Patho logist Time Signature WBC 8.3 4.0 - 9.5 [facility] x10(3)/[facility] LABORATORY RBC 4.63 4.00 - [facility] 5.[address] [facility] x10(6)/[facility] LABORATORY Hemoglobin 12.3 11.7 - [facility] 15.5 g/dL [facility] LABORATORY Hematocrit 39.1 35.7 - [facility] 45.8 % [facility] LABORATORY MCV 84.4 82.6 - [facility] 94.4 [facility] LABORATORY MCH 26.6 (L) 27.1 - [facility] 32.0 pg [facility] LABORATORY MCHC 31.5 (L) 31.7 - [facility] 35.0 g/dL [facility] LAB[facility]ORY Platelets 203 145 - 357 [facility] x10(3)/[facility] LABORATORY RDWSD 54.9 (H) 37.0 - [facility] 46.0 [facility] LABORATORY RDWCV 18.1 (H) 11.5 - [facility] 14.1 % [facility] LABORATORY MPV 11.4 7.6 - 12.9 [facility] LABORATORY nRBC % Auto 0.0 % [facility] nRBC Abs Auto 0.000 0.000 - [facility] 0.[address] [facility] x10(3)/[facility] LABORATORY Specimen Anatomical Collection Method Collection Time Receive d Time (Source) Location / / Volume Laterality Blood 11/01/2021 12:39 11/01/2021 3:59 PM EST PM EST Resulting Agency Comment Spec In Lab Ambreen Burroughs MD HEMATOLOGY ORDERABLES Performing Organization Address City/[facility]/[place] [address] CK (11/01/2021 12:39 PM EST) athologist [facility] CK, Total 47 0 - 160 [facility] unit/L [facility] LABOR[facility]ORY Specimen Anatomical Collection Method Collection Time Receive d Time (Source) Location / / Volume Laterality Blood 11/01/2021 12:39 11/01/2021 4:33 PM EST PM EST Resulting Agency Comment Spec In Lab Ambreen Burroughs MD CHEMISTRY ORDERABLES Performing Organization Address City/State/[place] [address] Hepatic Function Panel (11/01/2021 12:39 PM EST) athologist [facility] Total Protein 7.0 6.1 - 8.0 [place] g/dL [facility]ORY Albumin 4.0 3.2 - 5.2 [facility] g/dL [facility] LAB[facility]ORY AST 21 0 - 30 [place] unit/L [facility] LAB[facility]ORY ALT 13 0 - 30 [place] unit/L [facility] LABOR[facility]ORY Alk Phos 100 35 - 105 [place] unit/L [facility] LAB[facility] Total 0.3 0.2 - 1.3 [place] Bilirubin mg/dL [facility] LABOR[facility]ORY Bili, Direct 0.1 0.0 - 0.3 [facility] mg/dL [facility] LABOR[facility]ORY Specimen Anatomical Collection Method Collection Time Receive d Time (Source) Location / / Volume Laterality Blood 11/01/2021 12:39 11/01/2021 4:33 PM EST PM EST Resulting Agency Comment Spec In Lab Ambreen Burroughs MD CHEMISTRY ORDERABLES Performing Organization Address City/State/ZIP Code Phon e Number [place] [phone] documented in this encounter Visit Diagnoses Diagnosis Amyopathic dermatomyositis Dermatomyositis High risk medication use Encounter for long-term (current) use of other medications Yeast infection Other and unspecified mycoses documented in this encounter Care Teams Cold Storage Superintendent Relationship Specialty Start Date End Date Samantha Michelle MD PCP - General 09/14/11 [address] [place] [address] documented as of this encounter
--- OUTSIDE RECORDS SUMMARY | 2022-09-15 01:25 | XMS_ITS | Encounter Summary ---
:1955 [place] [address] Care Team Providers Name Role Phone Samantha Michelle MD Primary Care Provider Reason for Visit Reason Onset Date Comments Medication Refill 09/07/2020 Encounter Details Date Type Department Care Team Description 09/07/2020 Refill Rheumatology at [facility] Genesis Ibrahim, [facility] [place] [address] RHEUMATOLOGY DEPT [phone] [place], [place] [address] (Wo rk) Social History Tobacco [...] [facility] DR SHAYY CASTILLO-DERMAT [place], [place] [address] (Wo rk) 10/02/2022 Office Visit Pulmonology Laney Calhoun M D [facility] Pulmonary Medicguido [place]ornton [place], [place] [address] (Wo rk) 11/07/2022 Office Visit Ophthalmology Gifty Bernal MD [facility] [place] [address] (Wo rk) documented as of this encounter Visit Diagnoses Not on filedocumented in this encounter Care Teams Ethics Instructor Relationship Specialty Start Date End Date Samantha Michelle MD PCP - General 09/14/11 [address] [place] [address] documented as of this encounter
--- OUTSIDE RECORDS SUMMARY | 2022-09-15 01:25 | XMS_ITS | Encounter Summary ---
:1955 Author Organization [facility] Address [facility] [address] [place] [id number] Care Team Providers Name Role Phone Samantha Michelle MD Primary Care Provider Reason for Visit Reason Comments Advice Only bilat hand weakness, also sc ar after bcc mohs excision Consultation (Routine) - Closed Specialty Diagnoses / Procedures Referred By Contact Refer red To Contact Plastic Surgery Diagnoses Positive JANETH (antinuclear antibody) Hand weakness Cuba Martin MD [facility] [address] [facility] [place] [address] [place] [address] Phone: Referral ID Status Reason Start Date Expiration Date Visits V isits Requested Authorized [id number] Closed Consult, 02/06/2020 02/05/2021 1 1 Test & Treat Encounter Details Date Type Department Care Team Description 04/26/2020 Office Visit Plastic Surgery at [facility], Hand weakness (Primary Dx); [facility] History of basal cell carcinoma; [facility] S/P Mohs surgery for basal cell carcinoma [address] [place] PLASTIC SURGERY [address] [place] [address] [phone] Social History Tobacco Use Types Packs/Day Years [...] Sign Reading Time Taken Comments Blood Pressure - - Pulse - - Temperature - - Respiratory Rate - - Oxygen Saturation - - Inhaled Oxygen Concentration - - Weight 140.6 kg (310 lb) 04/26/2020 10:55 AM EDT per pt Height 175.3 cm (5' 9) 04/26/2020 10:55 AM EDT per pt Body Mass Index 45.78 04/26/2020 10:55 AM EDT documented in this encounter Progress Notes Cresencio Knowles MD - 04/26/2020 11:00 AM EDT Plastic Surgery Consultation Note Cresencio Knowles MD PCP: Samantha Michelle MD SOLID STATE TESTER: Cuba Martin MD CC: Bilateral hand weakness, s/p Mohs for BCC HPI: Brandi Ruiz is a 64 y.o. female here in consultation at the request of Cuba Martin MD for bilateral hand weakness and noted recent Mohs surgery completed by Dr. Sullivan on 03/25/2020 for recurrent BCC at the left alar crease repaired with an advancement flap. She would like to primarily talk about her hands and does not have any pressing concerns of her recent Mohs surgery, mostly concerned with healing process. In regards to her hands reports that her hand weakness started last year. Symptoms include not able to open jars, consistently drops things, does feel that she has more strength in little ring and long figer bilaterally, pain in her hand, is unable to flex her hand, denies sensation change and denies being woken up from symptoms. Pertinent surgical history includes bilateral carpal tunnel releases, the right in 2018 and the left in [address] Cespedes. Both procedures were completed at [facility] in [facility] and numbness symptoms subsided. 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 She was diagnosed by Dr. Martin in rheumatology and Dr. Clifton in Dermatology, this was approximately in January of 2019. Prior to this diagnosis her symptoms included generalized fatigue and overall feeling run down. Underwent multiple diagnostic testings, denies that she has had a p53 tests. Currently takes 400 mg pf Plaquenil and 75 mg of diphloconac. Recently gained 20 pounds with an unknown etiology reports no relationto her hands. Denies any other cancers besides BCC. Denies history of hypertension or diabetes. 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 Anemia D64.9 ??? Hypothyroidism E03.9 ??? Anxiety F41.9 ??? SVT (supraventricular tachycardia) I47.1 ??? Hypothyroid E03.9 ??? History of basal cell carcinoma Z85.828 ??? History of bilateral knee replacement Z96.653 ??? Mild intermittent asthma, uncomplicated J45.20 Past Medical History: Diagnosis Date ??? Allergy 1985 sulfites (preservative), pcn, ceclor, mold, dogs ??? Bladder disorder 2007 stress urinary incontinence ??? Blood disease 1997 anemia due to heavy periods ??? Bone disease 1996 OA and DJD of knees ??? Cancer 1996 skin basal cell ??? Chronic pain 2009 knees ??? Circulatory disease 1989 varicose veins ??? Genital disease, female 2009 heavy menses, fibroids ??? Headache(784.0) 1988 migraine headaches ??? Heart disorder 1972 svt ??? Hypothyroid ??? Hypothyroidism 10/28/2012 ??? Mental or behavioral problem 1977 anxiety ??? SVT (supraventricular tachycardia) Past Surgical History: Procedure Laterality Date ??? JOINT REPLACEMENT 1999 left knee arthroscopy ??? PRO COLONOSCOPY, BIOPSY 04/09/2012 COLONOSCOPY FLEXIBLE, WITH BX performed by DONALD VALIENTE at [facility] ??? PRO COLONOSCOPY, DIAGNOSTIC N/A 11/03/2019 COLONOSCOPY, DIAGNOSTIC performed by Devin Hu MD at [facility] ??? PRO UPPER GI ENDOSCOPY, BIOPSY 04/09/2012 EGD WITH BIOPSY performed by DONALD VALIENTE at [facility] ??? PRO UPPER GI ENDOSCOPY, BIOPSY N/A 11/03/2019 EGD WITH BIOPSY (WRVU 2.49) performed by Devin Hu MD at [facility] ??? STOMACH SURGERY 1975 ruptured ectopic, appendectomy, 1993 choleysectomy ??? UPPER GI ENDOSCOPY, EXAM 04/09/2012 UPPER GI ENDOSCOPY performed by DONALD VALIENTE at [facility] Social History Socioeconomic History ??? Marital status: Spouse name: Not on file ??? Number of children: Not on file ??? Years of education: Not on file ??? Highest education level: Not on file Occupational History ??? Not on file Social Needs ??? Financial resource strain: Not on file ??? Food insecurity Worry: Not on file Inability: Not on file ??? Transportation needs Medical: Not on file Non-medical: Not on file Tobacco Use ??? Smoking status: Former Smoker Packs/day: 0.25 Years: 7.00 Pack years: 1.75 Types: Cigarettes Last attempt to quit: 02/07/1975 Years since quittin.2 ??? Smokeless tobacco: Never Used Substance and Sexual Activity ??? Alcohol use: No ??? Drug use: No ??? Sexual activity: Not on file Lifestyle ??? Physical activity Days per week: Not on file Minutes per session: Not on file ??? Stress: Not on file Relationships ??? Social connections Talks on phone: Not on file Gets together: Not on file Attends restoration service: Not on file Active member of club or organization: Not on file Attends meetings of clubs or organizations: Not on file Relationship status: Not on file ??? Intimate partner violence Fear of current or ex partner: Not on file Emotionally abused: Not on file Physically abused: Not on file Forced sexual activity: Not on file Other Topics Concern ??? Exercise: Patient reported No ??? Abuse or Threat: Physical, Sexual, Verbal No Social History Narrative ??? Not on file Allergies Allergen Reactions ??? Ceclor [Cefaclor] Hives ??? Pcn [Penicillins] Anaphylaxis ??? Phenergan [Promethazine] Anaphylaxis ??? Preservative Anaphylaxis Sulfites ??? Sulfite ??? Vancomycin Hives Current Outpatient Medications on File Prior to Visit Medication Sig Dispense Refill ??? hydroxychloroquine (Plaquenil) 200 mg Tablet Take 1 tablet by mouth 2 times daily. 60 tablet 3 ??? fluticasone furoate-vilanteroL (Breo Ellipta) 200-25 mcg/dose Disk with Device Inhale 1 puff into the lungs daily. 1 each 5 ??? fluticasone propionate (FLONASE) 50 mcg/actuation [place], Suspension 2 sprays by Each Nare route daily. 1 each 3 ??? diclofenac EC (Voltaren) 75 mg Tablet, Delayed Release (E.C.) Take 1 tablet by mouth 2 times daily. 60 tablet 3 ??? gabapentin (NEURONTIN) 300 mg Capsule [...] morning (before breakfast). No current facility-administered medications on file prior to visit. ROS: HEENT, GI, /Renal, Psych, Card, Pulm, Endo, Heme, Immun, Neuro: negative Examination: Height 175.3 cm (5' 9) Comment: per pt Weight (Abnormal) 140.6 kg (310 lb) Comment: per pt BodyMass Index 45.78 kg/m?? Constitutional: No acute distress Pain in and unable to flex hand Has full ROM No noted numbness Right: Well healed scar in palm, crosses wrist crease -Tinel's -Phalen's test -comp Sensation intact in median portion distally 5/5 abduction Left: Well healed scar in palm, crosses wrist crease No atrophy in abductior muscle 5/5 abduction of thumb - compression test - Phalen's test -Tinel's Impression: Brandi Ruiz 64 y.o. female patient with new bilateral hand weakness with history of bilateral CTR completed between [id number] and diagnosed with dermatomyocitis. Recently has undergone aMohs Procedure with Dr. Sullivan, with noted concerns of the deepness of the crease. Recommended options include either following up with Dr. Sullivan or seeing me if she would like a revision in the future. In regards to her hand weakness I would like to approach this in a methodical way. Primarily I would like to obtain operative notes for her past carpal tunnel releases and have the patient completea series of imaging. I will order an MRI and EMG, explaining that this would help to rule out recurrent CTS, other areas in the periphery, a proximal lesion and parsonage jane syndrome. Once this is completed and results are available I would like for Brandi to follow up with me to revisit options and establish a treatment plan. Plan: 1. Follow up after imaging completed 2. EMG ordered today 3. MRI ordered today 4. Obtain records from CTR procedures I, Theresa Barcenas, have preformed the documentation for this encounter in the presence of and acting as a scribe for CRESENCIO KNOWLES MD. I performed the services which were documented by the scribe, and I agree with the accuracy of the documentation in this encounter. CRESENCIO KNOWLES MD documented in this encounter Plan of Treatment Upcoming Encounters Date Type Specialty Care Team Description 09/26/2022 Office Visit Dermatology Ambreen Burroughs MD [facility] DR SHAYY CASTILLO-DERMAT [place], [place] [address] ( naif) 10/02/2022 Office Visit Pulmonology Laney Calhoun M D [facility] Pulmonary Medicguido thornton [place], [place] [address] (Wo rk) 11/07/2022 Office Visit Ophthalmology Gifty Bernal MD [facility] Dr [place], [place] [address] (Wo naif) documented as of this encounter Visit Diagnoses Diagnosis Hand weakness - Primary Other musculoskeletal symptoms referable to limbs History of basal cell carcinoma Personal history of other malignant neop lasm of skin S/P Mohs surgery for basal cell carcinom a documented in this encounter Care Teams Tan Room Supervisor Relationship Specialty Start Date End Date Samantha Michelle MD PCP - General 09/14/11 [address] [place] [address] documented as of this encounter
--- OUTSIDE RECORDS SUMMARY | 2022-09-15 01:25 | XMS_ITS | Encounter Summary ---
:1955 Author Organization [facility] [place] [address] Care Team Providers Name Role Phone Samantha Michelle MD Primary Care Provider Encounter Details Date Type Department Care Team Description 08/02/2021 Office Visit Dermatology at [facility] Savi Herron MD Amyopathic dermatomyositis; [address] Encounter for long-term (current) use of high-risk medication; [address] RHEUMATOLOGY [place] [address] [place], [place] [phone] [address] Social History Tobacco Use Types Packs/Day Years Used Date Former Smoker Cigarettes 0.25 7 Quit: 02/07/19 75 Smokeless Tobacco: Never Used Alcohol Use Standard Drinks/Week Comments No 0 (1 standard drink = 0.6 oz pure alcoho l) Sex Assigned at Date Recorded Female 03/23/2021 8:16 AM EDT documented as of this encounter Progress Notes Savi Herron MD - 08/02/2021 3:00 PM EDT Brandi Ruiz is seen in [...] vastus lateralis muscle showed an unchanged cyst. At our last visit, the patient reports that she has had a number of dental issues since last seen. She has needed 3 extractions due to a abscessed tooth, a broken [place] and a deep filling that would probably not hold. She has been on 2 courses of antibiotics and a tooth extraction and bone graft. The patient notes that in her life her daughter got in the [facility]. During that tripher 6-year-old grandson contacted [employer] but the rest of the family was vaccinated and did not getill. Her last year was diagnosed with large B-cell lymphoma and actually has done very well with treatment. He is currently doing a 12-week employment with his [employer] company in [facility]. Brandi reports that she is doing well. The increase in methotrexate has helped with her energy and she finds that she is doing more. She has lost 20 pounds on the Noom diet. However the erythema over her arms has not changed. She even thinks it may be slightly worse. Her joints and muscles are comfortable enough on meloxicam. In the interim she received the third COVID-19 vaccination and had a significant reaction to it. On physical exam, Brandi looks well. She does have a significant local reaction in the right upper arm to her Covid 19 vaccination. She has obvious erythema on both arms that is if anything somewhat brighter than when we last saw her. Her nailfold capillaries are minimally abnormal into digits. The dermatology and rheumatology team had a discussion with the patient. We wonder if she may actually be having a cutaneous reaction to her hydroxychloroquine. Cutaneous reactions to hydroxychloroquine occur and dermatomyositis about 30% of the time though this percentage is increased in patients whohave SCA 1 or 2 antibody which is true of this patient. We recommended that she stop this medicationand continue with the methotrexate alone. Although she held her methotrexate for her Covid vaccination this week, we will get her laboratory tests done. Because our laboratory test at [facility] has moved to the [facility], the patient would rather have these done at her place of employment. We plan to see the patient again in 2 months time and hope that she will be better. An unexpected finding on her last labs was an elevated calcium of 10.8. This has gradually increasedfrom 10 back in January 2020. The patient is not on hydrochlorothiazide. I planned on getting a PTH level with her labs this appointment. documented in this encounter Plan of Treatment Upcoming Encounters Date Type Specialty Care Team Description 09/26/2022 Office Visit Dermatology Ambreen Burroughs MD [facility] DR SHAYY CASTILLO-DERMAT [place], [place] [address] (Ashvin disla) 10/02/2022 Office Visit Pulmonology Laney Calhoun M D [facility] Pulmonary Medicguido thornton [place], [place] [address] (Ashvin disla) 11/07/2022 Office Visit Ophthalmology Gifty Bernal MD [facility] Dr [place], [place] [address] (Ashvin disla) documented as of this encounter Visit Diagnoses Diagnosis Amyopathic dermatomyositis Dermatomyositis Encounter for long-term (current) use of high-risk medication Encounter for long-term (current) use of other medications Serum calcium elevated Hypercalcemia documented in this encounter Care Teams Rheostat Assembler Relationship Specialty Start Date End Date Samantha Michelle MD PCP - General 09/14/11 [address] [place] [address] documented as of this encounter
--- OUTSIDE RECORDS SUMMARY | 2022-09-15 01:25 | XMS_ITS | Encounter Summary ---
:1955 Author Organization [facility] [place] [address] Care Team Providers Name Role Phone Samantha Michelle MD Primary Care Provider Encounter Details Date Type Department Care Team Description 10/05/2021 Telephone Dermatology at [facility] Ambreen Burroughs MD [address] [facility] [place] [address] [facility] [phone] [place], [place] [address] (Wo rk) Social History Tobacco [...] Notes Telephone Encounter - Lisset Escoto - 10/05/2021 4:48 PM EST I left a voicemail for Brandi Ruiz trying to schedule her 1 month derm/rheum apt. We are limited with space so I went ahead and scheduled her apt on 11/01 at 11:30. I asked that she please call back if this did not work. Telephone Encounter - JevonLisset - 10/05/2021 4:48 PM EST ----- Message from Yuliana Barboza sent at 09/27/2021 11:38 AM EDT ----- 1 month for derm rheum via telehealth or in person documented in this encounter Plan of Treatment Upcoming Encounters Date Type Specialty Care Team Description 09/26/2022 Office Visit Dermatology Ambreen Burroughs MD [facility] DR SHAYY CASTILLO-DERMAT [place], [place] [address] (Wo rk) 10/02/2022 Office Visit Pulmonology Laney Calhoun M D [facility] Pulmonary Medicguido thornton [place], [place] [address] (Wo rk) 11/07/2022 Office Visit Ophthalmology Gifty Bernal MD [facility] er [place], [place] [address] (Wo rk) documented as of this encounter Visit Diagnoses Not on filedocumented in this encounter Care Teams Utility Tractor Operator Relationship Specialty Start Date End Date Samantha Michelle MD PCP - General 09/14/11 [address] [place] [address] documented as of this encounter
--- OUTSIDE RECORDS SUMMARY | 2022-09-15 01:25 | XMS_ITS | Encounter Summary ---
:1955 Author Organization [facility] [place] [address] Care Team Providers Name Role Phone Samantha Michelle MD Primary Care Provider Reason for Referral Consultation (Routine) - Closed Specialty Diagnoses / Procedures Referred By Contact Refer red To Contact Neurology Diagnoses Cresencio Boyle MD [facility] [address] [place] [address] D [facility] [place] [address] [place] [address] Referral ID Status Reason Start Date Expiration Date Visits V isits Requested Authorized [id number] Closed Consult, 05/31/2020 05/31/2021 1 1 Test & Treat Encounter Details Date Type Department Care Team Description 05/31/2020 Orders Only Plastic Surgery at [facility] Cresencio Mendez MD Hand weakness [facility] [place] [address] PLASTIC SURGERY [phone] [place], [place] [address] (Wo rk) Social History Tobacco [...] [facility] [address]-DERMAT [place], [place] [address] (Wo rk) 10/02/2022 Office Visit Pulmonology Laney Calhoun M D [facility] Pulmonary Medici hillary [place], [place] 0[address] (Wo rk) 11/07/2022 Office Visit Ophthalmology Gifty Bernal MD [facility] [place], [place] [address] (Wo rk) Scheduled Referrals Name Type Priority Associated Diagnoses Order S chedule Referral to Outpatient Referral Routine Hand weakness Ordered : Neurology 05/31/2020 documented as of this encounter Visit Diagnoses Diagnosis Hand weakness Other musculoskeletal symptoms referable to limbs documented in this encounter Care Teams Photoengraver Relationship Specialty Start Date End Date Samantha Michelle MD PCP - General 09/14/11 [address] [place] [address] documented as of this encounter
--- OUTSIDE RECORDS SUMMARY | 2022-09-15 01:25 | XMS_ITS | Encounter Summary ---
:1955 Author Organization [facility] [place] [address] Care Team Providers Name Role Phone Samantha Michelle MD Primary Care Provider Encounter Details Date Type Department Care Team Description 03/29/2020 Telephone Dermatology at [facility] Winifred Arndt RN [address] [place] [address] Social History Tobacco Use Types Packs/Day Years Used Date Former Smoker Cigarettes 0.25 7 Quit: 02/07/19 75 Smokeless Tobacco: Never Used Alcohol Use Standard Drinks/Week Comments No 0 (1 standard drink = 0.6 oz pure alcoho l) Sex Assigned at Date Recorded Female 03/23/2021 8:16 AM EDT documented as of this encounter Miscellaneous Notes Telephone Encounter - Winifred Arndt RN - 03/29/2020 8:50 AM EDT Spoke with Brandi regarding concern for swelling around surgical site. Photos were received through [facility]. Reviewed with her the expected course for swelling and that her swelling appeared normal from the photos and does not appear to be a hematoma. She denies increased pain or drainage at the site. Brandi verbalized her understanding and will call or message through [facility] with any further questions. documented in this encounter Plan of Treatment Upcoming Encounters Date Type Specialty Care Team Description 09/26/2022 Office Visit Dermatology Ambreen Burroughs MD [facility] ER [address]-DERMAT [place], [place] [address] (Wo rk) 10/02/2022 Office Visit Pulmonology Laney Calhoun M D [facility] Pulmonary Medicguido thornton [place], [place] [address] (Wo rk) 11/07/2022 Office Visit Ophthalmology Gifty Bernal MD [facility] [place], [place] [address] (Wo rk) documented as of this encounter Visit Diagnoses Not on filedocumented in this encounter Care Teams Floral Assistant Relationship Specialty Start Date End Date Samantha Michelle MD PCP - General 09/14/11 [address] [place] [address] documented as of this encounter
--- OUTSIDE RECORDS SUMMARY | 2022-09-15 01:25 | XMS_ITS | Encounter Summary ---
:1955 Author Organization [facility] [place] [address] Care Team Providers Name Role Phone Samantha Michelle MD Primary Care Provider Encounter Details Date Type Department Care Team Description 10/12/2020 Telephone Dermatology at [facility] Ambreen Burroughs MD [address] [facility] [place] [address] [facility] [phone] [place], [place] [address] (Wo rk) Social History Tobacco [...] Notes Telephone Encounter - Lisset Escoto - 10/12/2020 3:50 PM EST I left a voicemail for Brandi Ruiz requesting a call back to schedule derm/rheum visit in Dec. Telephone Encounter - Lisset Escoto - 10/12/2020 3:50 PM EST ----- Message from Savi Herrno MD sent at 10/07/2020 5:51 PM EST ----- From my point of view she can be seen in January Savi ----- Message ----- From: Lisset Escoto Sent: 10/04/2020 3:08 PM EST To: Savi Herron MD, Ambreen Burroughs MD No derm/rheum clinic scheduled for Dec. Can this pt wait until January? Lisset ----- Message ----- From: Radha Sylvia Jerry Sent: 09/28/2020 3:48 PM EST To: Lisset Escoto Derm/Rheum clinic documented in this encounter Plan of Treatment Upcoming Encounters Date Type Specialty Care Team Description 09/26/2022 Office Visit Dermatology Ambreen Burroughs MD [facility] [address]-DERMAT [place], [place] [address] (Wo rk) 10/02/2022 Office Visit Pulmonology Laney Calhoun M D [facility] Pulmonary Medicguido thornton [place], [place] [address] (Wo rk) 11/07/2022 Office Visit Ophthalmology Gifty Bernal MD [facility] [place], [place] [address] (Wo rk) documented as of this encounter Visit Diagnoses Not on filedocumented in this encounter Care Teams Heat Treat Operator Relationship Specialty Start Date End Date Samantha Michelle MD PCP - General 09/14/11 [address] [place] [address] documented as of this encounter
--- OUTSIDE RECORDS SUMMARY | 2022-09-15 01:25 | XMS_ITS | Encounter Summary ---
:1955 Author Organization [facility] [place] [address] Care Team Providers Name Role Phone Samantha Michelle MD Primary Care Provider Encounter Details Date Type Department Care Team Description 09/28/2020 Laboratory Lab 3L Bessy Positive JANETH (a ntinuclear antibody); Appointment [facility] Polyarthr itis with positive rheumatoid factor; Hospital Pain in both hands; [facility] [place] [address] Social History Tobacco Use Types Packs/Day Years [...] 09/26/2022 Office Visit Dermatology Ambreen Burroughs MD [facility] DR SHAYY CASTILLO-DERMAT [place], [place] [address] (Wo rk) 10/02/2022 Office Visit Pulmonology Laney Calhoun M D [facility] Pulmonary Mati thornton [place], [place] [address] (Ashvin disla) 11/07/2022 Office Visit Ophthalmology Gifty Bernal MD [facility] [place] [place] [address] (Wo rk) documented as of this encounter Procedures Procedure Name Priority Date/Time Associated Comments Diagnosis HC C-REACTIVE PROTEIN Routine 09/28/2020 2:05 PM Positive JANETH Results for this EST (antinuclear procedure are i n antibody) the results Polyarthritis with section. positive rheumatoid factor Pain in both lynn ds Hand weakness BILIRUBIN, DIRECT Routine 09/28/2020 2:05 PM Resu lts for this EST procedure are i n the results section. HEMOGRAM Routine 09/28/2020 2:05 PM Positive JANETH Results f or this EST (antinuclear procedure are i n antibody) the results Polyarthritis with section. positive rheumatoid factor Pain in both lynn ds Hand weakness DIFFERENTIAL, Routine 09/28/2020 2:05 PM Positive JANETH Results for this AUTOMATED EST (antinuclear procedure are i n antibody) the results Polyarthritis with section. positive rheumatoid factor Pain in both lynn ds Hand weakness HC ESR-SEDIMENTATION Routine 09/28/2020 2:05 PM Positive JANETH R esults for this RATE, BLOOD EST (antinuclear procedure are i n antibody) the results Polyarthritis with section. positive rheumatoid factor Pain in both lynn ds Hand weakness HC CBC,PLT & AUTO DIFF Routine 09/28/2020 2:05 PM Positive JANETH EST (antinuclear antibody) Polyarthritis with positive rheumatoid factor Pain in both lynn ds Hand weakness COMPREHENSIVE Routine 09/28/2020 2:05 PM Positive JANETH Results for this METABOLIC PANEL EST (antinuclear procedure ar e in (NON-FASTING) antibody) the results Polyarthritis with section. positive rheumatoid factor Pain in both lynn ds Hand weakness documented in this encounter Results Bilirubin, Direct (09/28/2020 2:05 PM EST) P athologist Signature Bili, Direct 0.1 0.0 - 0.3 [facility] mg/dL [facility] Specimen Anatomical Collection Method Collection Time Receive d Time (Source) Location / / Volume Laterality Blood specimen 09/28/2020 2:05 PM 020 2:15 (specimen) EST PM EST Resulting Agency Comment Spec In Lab Cuba Martin MD CHEMISTRY ORDERABLES Performing Organization Address City/State/[place] [address] (ABNORMAL) Differential, Automated (09/28/2020 2:05 PM EST) P athologist Signature Neutrophils % 65.0 % [facility] Neutr Abs (ANC) 5.72 1.70 - [facility] 6.10 [facility] x10(3)/[facility] LABORATORY Lymphocytes % 23.8 % [facility] Lymphocytes Abs 2.1 0.9 - 3.2 [facility] x10(3)/[facility] LABORATORY Monocytes % 6.5 % [facility] Monocyte Abs 0.6 0.3 - 0.9 [facility] x10(3)/[facility] LABORATORY Eosinophils % 3.4 % [facility] Eosinophils Abs 0.3 0.0 - 0.4 [facility] x10(3)/[facility] LABORATORY Basophils % 0.7 % [facility] Basophils Abs 0.1 0.0 - 0.1 [facility] x10(3)/[facility] LABORATORY Immature Gran % 0.60 % [facility] Comment: Immature granulocytes(IG's)percentage an d absolute count will include metamyelocytes, myelocytes, and promyelo cytes. Blood smears from CBCs yielding IG's will be scanned manually for concor dance. If this scan disagrees with the automated IG or if promyelocytes are not ed, a manual differential will be performed. Kavitha Gran Abs 0.05 (H) 0.00 - 0.04 x10(3)/[facility] LABORATORY Specimen Anatomical Collection Method Collection Time Receive d Time (Source) Location / / Volume Laterality Blood specimen 09/28/2020 2:05 PM 020 2:15 (specimen) EST PM EST Resulting Agency Comment Spec In Lab Cuba Martin MD HEMATOLOGY ORDERABLES Performing Organization Address City/State/[place] [address] (ABNORMAL) Hemogram (09/28/2020 2:05 PM EST) Analysis Performed At Patho logist Time Signature WBC 8.8 4.0 - 9.5 [facility] x10(3)/[facility] LABORATORY RBC 4.92 4.00 - [facility]Y [facility] 5.21 [facility] x10(6)/[facility] LABORATORY Hemoglobin 12.3 11.7 - [facility] 15.[facility] gm/dL [facility] Hematocrit 40.2 35.7 - [facility] 45.8 % [facility] MCV 81.7 (L) 82.6 - [facility] 94.4 [facility] LABORATORY MCH 25.0 (L) 27.1 - [facility] 32.0 pg [facility] MCHC 30.6 (L) 31.7 - [facility] 35.0 gm/dL [facility] Platelets 248 145 - 357 [facility] x10(3)/[facility] LABORATORY RDWSD 50.5 (H) 37.0 - [facility] 46.0 [facility] LABORATORY RDWCV 16.8 (H) 11.5 - [facility] 14.1 % [facility] MPV 10.6 7.6 - 12.9 [facility] LABORATORY nRBC % Auto 0.0 % [facility] nRBC Abs Auto 0.000 0.000 - [facility] 0.000 [facility] x10(3)/[facility] LABORATORY Specimen Anatomical Collection Method Collection Time Receive d Time (Source) Location / / Volume Laterality Blood specimen 09/28/2020 2:05 PM 020 2:15 (specimen) EST PM EST Resulting Agency Comment Spec In Lab Cuba Martin MD HEMATOLOGY ORDERABLES Performing Organization Address City/State/ZIP [place] [address] (ABNORMAL) CRP, acute inflammation (09/28/2020 2:05 PM EST) P athologist Signature CRP 17.4 (H) <=4.9 mg/L [facility] Specimen Anatomical Collection Method Collection Time Receive d Time (Source) Location / / Volume Laterality Blood specimen 09/28/2020 2:05 PM 11/03/2 020 2:15 (specimen) EST PM EST Resulting Agency Comment Spec In Lab Cuba Martin MD CHEMISTRY ORDERABLES Performing Organization Address City/State/ZIP [place] [address] (ABNORMAL) Comprehensive metabolic panel (non-fasting) (09/28/2020 2:05 PM EST) P athologist Signature Glucose Lvl 113 65 - 199 [facility] mg/dL [facility] Comment: Diabetes: >=200 mg/dL plus symp toms BUN 12 8 - 18 mg/dL [facility] Creatinine 0.81 0.70 - 1.20 mg/dL [facility] Sodium 139 135 - 145 mmol/L [facility] Potassium 4.2 3.5 - 5.0 mmol/L [facility] Comment: Please note: ??Patients with WBC >100,00 0 may have falsely elevated Potassium levels. ??For accurate Potassium quantif ication in these patients send serum separator tube (gold top) for subsequent determinations. ??Contact the Clinical Chemistry Laboratory if there are any qu estions. Chloride 102 98 - 107 mmol/L [facility] CO2 27 22 - 31 mmol/L [facility] Anion Gap 10 5 - 15 mmol/L [facility] Calcium 10.0 8.5 - 10.5 mg/dL [facility] Total Protein 7.3 6.1 - 8.0 gm/dL [facility] LABORATORY Albumin 4.2 3.2 - 5.2 gm/dL [facility] AST 22 0 - 30 unit/L [facility] ALT 20 0 - 30 unit/L [facility] Alk Phos 109 (H) 35 - 105 unit/L [facility] Total Bilirubin 0.2 0.2 - 1.3 mg/dL [facility] LABOR[facility] Estimated GFR 77 >=60 mL/min/1.73 m?? [facility] Comment: The eGFR was calculated using the CKD-EP I equation. As with all creatinine based estimates of kidney function, eGFR values calculated with the CKD-EPI equation are not accurate in patients wi th acute kidney failure, extremes of body mass or the acutely ill. http://Ziios/[facility] TULSAnkf eGFR 89 >=60 mL/min/1.73 m?? [facility] Comment: The eGFR was calculated using the CKD-EP I equation. As with all creatinine based estimates of kidney function, eGFR values calculated with the CKD-EPI equation are not accurate in patients wi th acute kidney failure, extremes of body mass or the acutely ill. http://Ziios/[facility] TULSAnkf Specimen Anatomical Collection Method Collection Time Receive d Time (Source) Location / / Volume Laterality Blood specimen 09/28/2020 2:05 PM 020 2:15 (specimen) EST PM EST Resulting Agency Comment Spec In Lab Cuba Martin MD CHEMISTRY ORDERABLES Performing Organization Address City/[facility]/ZIP Code Phon e Number [address] Sedimentation rate (09/28/2020 2:05 PM EST) P athologist Signature Sed Rate 39 2 - 39 [facility] mm/hr [facility] Comment: Effective November 05, 2019 new capillar y photometric technology has resulted in a change in reference ranges. It is r ecommended that each ESR result be reviewed with its own age appropriate re ference range. Specimen Anatomical Collection Method Collection Time Receive d Time (Source) Location / / Volume Laterality Blood specimen 09/28/2020 2:05 PM 020 2:15 (specimen) EST PM EST Resulting Agency Comment Spec In Lab Cuba Martin MD HEMATOLOGY ORDERABLES Performing Organization Address City/[facility]/ZIP [facility] Phon e Number [address] documented in this encounter Visit Diagnoses Diagnosis Positive JANETH (antinuclear antibody) Other and unspecified nonspecific immuno logical findings Polyarthritis with positive rheumatoid f actor Pain in both hands Hand weakness Other musculoskeletal symptoms referable to limbs documented in this encounter Care Teams Manager Banking Relationship Specialty Start Date End Date Samantha Michelle MD PCP - General 09/14/11 [address] [place] [address] documented as of this encounter
--- OUTSIDE RECORDS SUMMARY | 2022-09-15 01:25 | XMS_ITS | Encounter Summary ---
:1955 Author Organization [facility] [place] [address] Care Team Providers Name Role Phone Samantha Michelle MD Primary Care Provider Reason for Referral Diagnostic Test (Routine) - Closed Specialty Diagnoses / Procedures Referred By Contact Refer red To Contact Radiology Diagnoses Dermatomyositis Savi Herron MD [facility] Rad Mri Procedures MRI Lower Extremity Non Joint wwo Contrast Right [address] [place] [address] [place] [address] Referral ID Status Reason Start Date Expiration Date Visits V isits Requested Authorized [id number] Closed Specialty 01/20/2021 07/20/2022 1 1 Service Requested Reason for Visit Diagnostic Test (Routine) - Closed Specialty Diagnoses / Procedures Referred By Contact Refer red To Contact Radiology Diagnoses Dermatomyositis Savi Herron MD [facility] Rad Mri Procedures MRI Lower Extremity Non Joint wwo Contrast Right [address] [place] [address] [place] [address] Referral ID Status Reason Start Date Expiration Date Visits V isits Requested Authorized [id number] Closed Specialty 01/20/2021 07/20/2022 1 1 Service Requested Encounter Details Date Type Department Care Team Description 06/20/2021 Hospital Encounter MRI at [facility] Savi Herron MD Dermatomyositis [address] [address] [place], [place] [phone] Social History Tobacco Use Types Packs/Day Years [...] 3 01/18/2022 (FLONASE) 50 route daily. mcg/actuation [place], Suspension gabapentin (NEURONTIN) Take 200 mg by mouth 0 06/201912/05/2021 300 mg Capsule every evening. triamcinolone (KENALOG) Apply to affected 454 g 1 05/1208/02/2021 0.1 % areas on arms twice OintmentIndications: daily for 10-14 days. Dermatomyositis Take 5-7 days off and repeat as needed documented as of this encounter Plan of Treatment Upcoming Encounters Date Type Specialty Care Team Description 09/26/2022 Office Visit Dermatology Ambreen Burroughs MD [facility] DR SHAYY CASTILLO-DERMAT [facility], [place] [address] (Wo rk) 10/02/2022 Office Visit Pulmonology Laney Calhoun M D [facility] Pulmonary [place], [place] [address] (Wo rk) 11/07/2022 Office Visit Ophthalmology Gifty Bernal MD [facility] [place], [place] [address] (Wo rk) documented as of this encounter Procedures Procedure Name Priority Date/Time Associated Diagnosis Comme nts MRI LOWER EXTREMITY Routine 06/20/2021 3:48 PM Dermatomyositis Results for this RIGHT NON JOINT EDT procedure ar e in WITH/WO CONTRAST the results section. documented in this encounter Results MRI Lower Extremity Non [...] who have questions please contact the health primary care pediatrician that requested your imaging first. ? Narrative [...] ho have questions please contact the health primary care pediatrician that requested your imaging first. Electronically signed by: Steve Sloan MD , [facility] ([phone]), at 06/21/2021 9:57 AM Savi Herron MD IMG MRI ORDERABLES documented in this encounter Visit Diagnoses Diagnosis Dermatomyositis documented in this encounter Administered Medications Inactive Administered Medications - up to 3 most recent administrations Medication Order MAR Action Action Date Dose Rate Site gadoterate meglumine (Dotarem) Given 06/20/2021 3:30 PM EDT 20 m Ls (0.5 mMol/mL) injection solution 0-100 mL 0-100 mL, Intravenous, ONCE PRN, 1 dose, Starting on Sun06/20/21 at 1451, Until Sun06/20/21 at 1530, Per Protocol, Radiology Contrast, Routine documented in this encounter Care Teams Manager Transportation Relationship Specialty Start Date End Date Samantha Michelle MD PCP - General 09/14/11 [address] [place] [address] documented as of this encounter
--- OUTSIDE RECORDS SUMMARY | 2022-09-15 01:25 | XMS_ITS | Encounter Summary ---
:1955 Author Organization [facility] [place] [address] Care Team Providers Name Role Phone Samantha Michelle MD Primary Care Provider Encounter Details Date Type Department Care Team Description 11/01/2021 Office Visit Dermatology at [facility] Savi Herron MD Amyopathic dermatomyositis; [address] High risk medication use; [address] RHEUMATOLOGY Yeast infection; [place] [address] [place], [place] Chronic pain of both shoulde rs [phone] Social History Tobacco Use Types Packs/Day Years Used Date Former Smoker Cigarettes 0.25 7 Quit: 02/07/19 76 Smokeless Tobacco: Never Used Alcohol Use Standard Drinks/Week Comments No 0 (1 standard drink = 0.6 oz pure alcoho l) Sex Assigned at Date Recorded Female 03/23/2021 8:16 AM EDT documented as of this encounter Progress Notes Savi Herron MD - 11/01/2021 11:30 AM EST Brandi Ruiz is seen [...] due to a abscessed tooth, a broken [place] and a deep filling that would probably [...] has not been onprednisone for her illness. The patient reports no pulmonary symptoms except for allergic reactive airways disease for which sheuses an inhaler. She has no dysphagia. She does have some abdominal cramping that is new without changes in her bowel habits. The patient reports no intercurrent illness. She did receive the third Covid 19 vaccination and the flu shot. The dermatology and rheumatology team discussed our [...] again in 1 to 2 months to button pusher the efficacy of our interventions. Skin Biopsy [...] or diagnostic. ??Clinical correlation is needed. The MRI of the chest to look at her arm muscles is due on 11/07. The patient reports that she is currently taking 25 mg of methotrexate in divided dose and hydroxychloroquine 200 mg twice daily. Her skin biopsy did not demonstrate inflammation but more vascular ectasia. She notes no change in the appearance of her skin with the increase in methotrexate. However, back on hydroxychloroquine her arm muscles and shoulder are possibly slightly better. The patient reports that in the interim she has had 2 vaginal yeast infections and currently feels she has a third. This has only occurred since she increased her methotrexate to 25 mg. On physical exam the patient looks well but her skin on the upper arms and lower arms has really notchanged. She continues to have subtle abnormalities in the capillary loops on several digits bilaterally. Shoulder exam demonstrates decreased range of motion passively and actively but particularly with abduction. The dermatology/rheumatology team had a discussion with the patient. We agree that the methotrexate at higher doses may be the cause of her recurrent yeast infections and in view of the absence of inflammation on her skin biopsy and the lack of change in the appearance of her dermatitis with the increased dose, we will reduce her methotrexate back to 20 mg. The patient will have laboratory tests donetoday as the last were done in July. The patient CK was normal in March 2021 but the MRI to be performed later this month may help us determine if she has muscle involvement in her upper arms or if she has tendinitis affecting the shoulders. She is currently taking meloxicam that does not seem as effective as initially. We will revisit our approach when we see the MRI of her upper extremities. We plan to see her again in 2 to 3 months. documented in this encounter Plan of Treatment Upcoming Encounters Date Type Specialty Care Team Description 09/26/2022 Office Visit Dermatology Ambreen Burroughs MD [facility] DR SHAYY CASTILLO-DERMAT [place], [place] [address] ( rk) 10/02/2022 Office Visit Pulmonology Laney Calhoun M D [facility] Pulmonary Mati thornton [place], [place] [address] (Wo rk) 11/07/2022 Office Visit Ophthalmology Gifty Bernal MD [facility] [place], [place] [address] (Wo rk) documented as of this encounter Visit Diagnoses Diagnosis Amyopathic dermatomyositis Dermatomyositis High risk medication use Encounter for long-term (current) use of other medications Yeast infection Other and unspecified mycoses Chronic pain of both shoulders Pain in joint, shoulder region documented in this encounter Care Teams Videotape Editor Relationship Specialty Start Date End Date Samantha Michelle MD PCP - General 09/14/11 [address] [place] [address] documented as of this encounter
--- OUTSIDE RECORDS SUMMARY | 2022-09-15 01:25 | XMS_ITS | Encounter Summary ---
:1955 Author Organization [facility] [place] [address] Care Team Providers Name Role Phone Samantha Michelle MD Primary Care Provider Encounter Details Date Type Department Care Team Description 12/28/2020 TH Visit Dermatology at [facility] Savi Herron MD Amyopathic dermatomyositis; (TeleHealth) [address] Encounter for long-term (current) use of high-risk medication [address] [place] [address] [phone] Social History Tobacco Use Types Packs/Day Years Used Date Former Smoker Cigarettes 0.25 7 Quit: 02/07/19 76 Smokeless Tobacco: Never Used Alcohol Use Standard Drinks/Week Comments No 0 (1 standard drink = 0.6 oz pure alcoho l) Sex Assigned at Date Recorded Female 03/23/2021 8:16 AM EDT documented as of this encounter Progress Notes Savi Herron MD - 12/28/2020 1:00 PM EST Brandi Ruiz is seen in [...] she has done well on hydroxychloroquine though when we last saw her on September 28, 2020 her skin rash was more active and hydroxychloroquine was increased to 600 mg a day based on her weight. She would say that there is no significant change in her rash or pruritus with the increased dose overthe past 3 months. She continues to use topicals. She also has musculoskeletal pain that she identifies as muscle pain in the back and radiating into the glutes and down the legs right greater than left. This tends to limit her ability to sit or to walk. She is taking diclofenac plus Tylenol as well as doing stretches, using heat and warm baths. The patient's MRI from 09/01/2019 demonstrated a cystic structure in the right vastus lateralis muscles as well as a heterogeneous marrow signal in the distal femoral shaft. A PET CT scan was recommended but this was not done secondary to the pandemic. In addition her PET CT scan which preceded her August 2019 MRI noted uptake in the uterus and a transvaginal ultrasound was recommended. This has alsonot been done. We felt strongly that these studies should be for performed and might be done together. The dermatology/rheumatology team discussed the situation with the patient. We recommended trying a change from diclofenac to meloxicam to see if that would be a better nonsteroidal anti-inflammatory drug for her joint pain. We reduced her hydroxychloroquine back to 400 mg a day in view of the fact that the increased dose did not make a difference. And most importantly we will schedule her PET CT scan and transvaginal ultrasound to be done at [facility] in the near future. documented in this encounter Plan of Treatment Upcoming Encounters Date Type Specialty Care Team Description 09/26/2022 Office Visit Dermatology Ambreen Burroughs MD [facility] DR SHAYY CASTILLO-DERMAT [place], [place] [address] (Wo rk) 10/02/2022 Office Visit Pulmonology Laney Calhoun M D [facility] Pulmonary [place] [address] (Wo rk) 11/07/2022 Office Visit Ophthalmology Gifty Bernal MD [facility] [place] [address] (Wo rk) documented as of this encounter Visit Diagnoses Diagnosis Amyopathic dermatomyositis Dermatomyositis Encounter for long-term (current) use of high-risk medication Encounter for long-term (current) use of other medications documented in this encounter Care Teams Primary Health Care Nurse Relationship Specialty Start Date End Date Samantha Michelle MD PCP - General 09/14/11 [address] [place] [address] documented as of this encounter
--- OUTSIDE RECORDS SUMMARY | 2022-09-15 01:25 | XMS_ITS | Encounter Summary ---
:1955 Author Organization [facility] [place] [address] Care Team Providers Name Role Phone Samantha Michelle MD Primary Care Provider Reason for Visit Reason Comments Basal Cell Carcinoma Encounter Details Date Type Department Care Team Description 03/25/2020 Procedure visit Dermatology at [facility] Drew Sullivan Basal cell carcinoma Road MD Zoraida of left ala nasi [address] [place], [place] [id number] [facility] [phone] -[place] [address] Social History Tobacco Use Types Packs/Day Years [...] Sign Reading Time Taken Comments Blood Pressure 127/68 03/25/2020 9:07 AM EDT Pulse 82 03/25/2020 9:07 AM EDT Temperature - - Respiratory Rate - - Oxygen Saturation - - Inhaled Oxygen Concentration - - Weight - - Height - - Body Mass Index - - documented in this encounter Patient Instructions Patient InstructionsToCathy bangura CMA - 03/25/2020 9:00 AM EDT Your staff surgeon today was Drew Sullivan MD, PhD Your wound(s) was repaired by [id number] stitches called a primary repair. Stitches will need to be removed. Instructions are as below. Please keep as a reference: Wound Care ??? Gently remove your initial bandage (after 48 hours from surgery). It is normal to have swelling and bruising. ??? Begin wound care as below. ??? If your initial bandage only stayed on for 24 hours (for example, falls off sooner), this is okay. Resume your wound care and bandaging instructions as below. ??? Change your bandage once a day (and whenever it becomes wet or soaks through) continue for 7 days. ??? For bandage changes: o Wash hands with soap and water, or use gloves that you can purchase at a local pharmacy or drug store. o Clean the surgical area with cotton-tipped swabs or soft gauze dipped in soapy water (recommend liquid soap in clean room temperature water). Roll the cotton swab over the incision with soapy water, then with plain water, and then gently pat dry. Do not scrub the area with a washcloth. Do not put direct shower water pressure onto your wound. Do not pick off any scabs. It is okay to allow soapy water to run over your wound in the shower, however. o If you cannot remove any bloody or crusted areas, you may soak the area with wet gauze first for 15 to 20 minutes to help soften it o Pat the area dry with clean gauze or cotton swabs. Do not rub. o Use a cotton swab to apply a generous layer of petrolatum over the incision lines and any open-wound areas. o Make sure your tube or jar of petrolatum is new or unused to prevent prior contamination from entering your wound. Avoid double dipping. o After applying petrolatum, use a clean nonstick gauze or other nonstick dressing, such as Telfa. This may be purchased over the counter at a drug store. Do not use regular gauze as it will stick to your wound and can peel off healing skin with bandage changes. o Secure the bandage with paper tape or a bandage. Band-aids are okay, but typically have more adhesive that can irritate the skin compared to paper tape. This can be purchased at a drug store. o Continue wound care for 7 days. If any portion of incision was left to heal on its own, continue to apply Vaseline daily until healed. o Keep in mind that if you do not want to use a bandage at all due to difficulty, allergies, irritation of skin, cost, time, or inconvenience --- you can certainly avoid bandages altogether. However, it is imperative that you continue with topical petrolatum ointment or Aquaphor (plain, fragrance-free). This may need to be applied several times daily if it gets wiped off, washed off, or dries out. Things to purchase for wound care: -Nonstick gauze -A tube or tub of petrolatum jelly (fragrance-free, no dye, not lotion) -paper tape -cotton swabs -gloves (optional) -Dial or other antibacterial liquid soap After Surgery 1. If you are a tobacco user please attempt to decrease the amount tobacco products used following surgery for 1-2 weeks. 2. Limit alcohol intake to one drink per day over the next 3 days. 3. Do not participate in athletic activities for 1 week, unless you were told a different timeline during your visit. Athletic activity is a relative term, but this is considered to be anything that could potentially raise your heartrate or blood pressure. Elevating your heart rate and blood pressure increases the risk of swelling, bleeding, wound opening, and it could lead to worse scarring. Walkingat a leisurely pace is fine for most people, but not if you are walking for the purpose of exercise.When in doubt, take it easy or call us. 4. Do not lift anything heavier than 10 pounds until your sutures are removed. 5. Some stripping cutter and winder may need to be delayed or delegated such as vacuuming, mowing the lawn, snow shoveling, or caring for young children that need to be carried/lifted. Working any major muscle groups increases your heart rate and can increasing bleeding. 6. Avoid swimming, hot tubs, and direct water pressure for 3 weeks after surgery. You may shower, however, once your initial bandage comes off in 48 hours. 7. Avoid antibiotic ointments such as triple antibiotic creams. Stick with your wound care instructions, please. 8. Whenever possible, it is helpful to take photographs with your camera or cell phone of any problems or concerns you see with your wound. We often ask for photos when you call with questions. 9. Starting 2 months following surgery, you can begin firm massage to any areas of firm scar along your incision to soften the scar and reduce bumpiness. Do this 3 times per day, 3 minutes each time. Do not start massage before 2 months. 10. Your wound will appear almost completely healed soon after sutures are removed (about 1 week), but incisions can remain bright red for several weeks. Then the scarring and healing process continuesunder the skin for 6 months until to 2 years. The scar may become less red, less firm, and more subtle during this time; please note that the rate of improvement varies depending on the person. Most redness, discoloration, bumpiness resolves by 6 months, and most patients will look presentable within a few weeks after surgery. 11. Keep your follow-up appointments and make sure to continue to have your skin checked, as often as is recommended by your mangle roll operator, for new skin cancers. This is once per year for most patients. 12. Your can expect your scar to be red for several weeks with gradual fading of the redness. Your scar will also be raised and lumpy until the dissolvable sutures under the skin get absorbed by your body which can take 3-4 months. The scar will flatten eventually. a. If you have a skin condition called rosacea, the redness can last long-term, or you can get an increased appearance of red vessels to the skin. The appearance of vessels slightly improves, but tendsto respond well to laser treatments. 13. Occasionally, about 20% of the time on the face, the stitches under the skin can spit out of the incision to the surface. It can start out looking like a pimple or blemish directly on your incision. Sometimes you can feel something poking through the incision. it can look also minic a small areaof infection, so please let us know before you go to another provider for antibiotics. This means that the suture may need to be trimmed or removed when you return for your wound check. This typically occurs a few weeks after surgery if it does occur. 14. To optimize your scar, and best cosmetic result, please avoid direct sunlight to your incision for the first 6 months following surgery. UV ray exposure to your incision may cause the redness to last longer, or to cause permanent darkening of your scar. You can avoid sun by covering your incision w ith a bandage when outdoors, wearing broad-rimmed hats, and wearing SPF 30 to 50 sunscreen (broad spectrum). 15. Sometimes after your sutures are removed, your incision may still be healing for 1 more week. Because of this, avoid make-up and sunscreen until approximately 2 weeks after surgery. You can begin sooner if your skin edges look completely sealed. 16. Any time you have skin surgery or any type of surgery, you can experience mild sensation loss (numbness) in the area of surgery. Massage starting at 8 weeks after surgery can help. 17. Swelling and bruising is common, and expected, especially if your surgery site was on the forehead, cheeks, temples, nose, or eyelids. . Sometimes it can be quite profound, where the eyelids swell shut, or getting black eyes. This is especially true if you are on blood thinners such as aspirin. Swelling and bruising will peak at about 48 hours after surgery. Bruising and swelling will graduallyresolve. You can use ice packs or a bag of frozen peas for 15-20 minutes, 20 minutes off, up to 3-4 times daily to areas of swelling on the face. Use caution not to put the icy item directly onto your incision, or directly in contact with your skin as this can damage skin. Avoid prolonged use more than 20 minutes. The best way to use ice packs is over the bandage, or using a light cloth/paper towel barrier between the ice pack and your skin. You can ice for as many days as needed until swelling has resolved. Eyelid and lip swelling is typically the last type of swelling to resolve. Antibiotics: If you were given antibiotic prescription, it is important to start them the evening of your surgerydate. However, most patients do not need antibiotics after surgery. For pain: Most patients of different ages do not require pain medications. If you do feel soreness, throbbing or sharp pains, start by taking over the counter extra strength acetaminophen (up to 3000 mg in a 24 hour period). Generally, we like you to avoid NSAIDS (non-steroid anti-inflammatory drugs such as ibuprofen) for the first 48 hours after surgery as this can increase risk of bleeding. However, if acetaminophen is not helping with pain, you can alternate acetaminophen with iburpofen or other NSAID. Icepacks over your bandage without getting your bandage wet can also help with pain and swelling. Frozen peas work well as ice packs. THIS IS AN EXAMPLE OF A PAIN TREATMENT SCHEDULE: 1) You can take 500 mg acetaminophen one tablet by mouth at 6:00pm. This is over the counter. 2) You can take 400 mg of ibuprofen two hours later, at 8:00 pm, or other NSAID such as naproxen, aslong as it does not interact with your other medications and your other doctors have not told you toavoid this. This is over the counter. Check to see how many milligrams (mg) each of your ibuprofen tablets are. Most of the time, ibuprofen comes in 200 mg tablets, so 400 mg would mean taking two of these tablets or capsules. 3) You can take 500 mg of acetaminophen at 10:00 pm. Keep track of your total acetaminophen in a 24 hour period as your maximum should be 3000 mg total in a 24 hour period of this medication. 4) At midnight, you can take another 400 mg of ibuprofen. 5) you can continue on this schedule over the next 2 days, making sure to keep tabs of your total acetaminophen. If you are still in pain after trying the above, please call us. When to call your surgeon: ??? Fever of 100.4 degrees Fahrenheit or higher ??? Bleeding not controlled with direct firm pressure to your wound. Bleeding is most common in the first 48 hours. ??? Pain that is worsening and not relieved by over the counter medications such as acetaminophen (up to 3000 mg in a 24 hour period) ??? Wound reopening after stitching ??? Pus or bad odor from your wound ??? Worsening redness and warmth around your wound ??? If you think your surgery site is infected, please call us before seeking care or antibiotics from other providers ??? Please call us before seeking care in an emergency room or primary care. ??? If you do call, please leave your full name, phone number, date of , date of surgery, and medical record number if you have it. If after hours, please call the brake operator sheet metal or [phone] and ask for the mangle roll operator on-call. If you have any non-urgent questions or concerns, please feel free to call my office or contact me through our patient portal, [facility], at [email or web address] How to contact us during business hours Dermatology at [facility] Road: Mohs scheduling or Mohs follow-up appointments: [phone] documented in this encounter Progress Notes Drew Sullivan MD - 03/25/2020 9:00 AM EDT Images from the original note were not included. Summary of Procedure(s): Site: left alar crease Tumor Type: Basal Cell Carcinoma, recurrent Stages to clear tumor: 2 Repair: advancement flap Images: The patient was asked to call with any issues and is aware that I am available 18/06 should questionsarise. Mohs consultation and preoperative note (H&P) Patient Name: Brandi Ruiz Age: 64 y.o. Date of : 1955 Today's Date: 03/25/2020 REFERRING PROVIDER: Ambreen Burroughs CC: Mohs micrographic surgery for treatment of a cutaneous tumor HPI: Brandi Ruiz is a 64 y.o. female presenting for biopsy-proven basal cell carcinoma location on theleft alar crease. The dermatologic preoperative information sheet was reviewed with pertinent positive and negative as below. ALLERGIES: Allergies reviewed MEDICATIONS: Medications reviewed Dermatology Pre-Op Responses 03/24/2020 HX of MOHs surgery No HX of artificial valve or stroke No Joint replacement or other implantable devices (e.g. Cochlear implant) Yes Pacemaker/Defibrillator No Hearing aid or other devices No HX of liver disease or bleeding disorder? No Take blood thinner(s) No HX of organ transplant No Use tobacco or nicotine products No Any medical problems that may affect your upcoming surgery? No Physical limitations that may affect surgery No Concerns regarding your upcoming surgery? No Make own health care decisions Yes Future travel plan(s) No VITAL SIGNS: BP 127/68 (BP Location (NBP): Left arm, Patient Position: Sitting, BP Cuff Sizes: Large Adult (32-43cm)) Pulse 82 PHYSICAL EXAMINATION: General: patient is awake, alert, oriented and in no acute distress. Skin: Focused examination of surgical site(s) performed which shows an erythematous scar corresponding with recent biopsy site. PHYSICIAN REVIEW OF REPORTS, RECORDS, IMAGES: 1) The accompanying pathology report(s) associated with aforementioned biopsy slide(s) were/was alsoreviewed. Assessment: Brandi Ruiz is a 64 y.o. female presenting for: 1. Biopsy-proven basal cell carcinoma located on the left alar crease. Plan: 1. Findings from the biopsy report, my independent review of the histopathology from the biopsy slides, today's clinical exam, and other pertinent details were reviewed with patient today. All questions were answered. 2. Discussed treatment options based on the above findings. We recommended Mohs micrographic surgeryfor treatment of this tumor. Mohs micrographic surgery was indicated due to patient, site and/or tumor characteristics (see operative report for specific indication). 3. We discussed risks, benefits, and alternative treatment options to the Mohs micrographic surgery procedure and pertinent information including but not limited to the following: ?? Risks include bleeding, infection, scar, recurrence, incomplete tumor removal or inability to cure with surgery alone if the tumor features are more aggressive than the initial pathology indicates. Occasionally, additional adjuvant treatments may be recommended. Additional risks include large wound, prolonged wound and healing, pain, swelling, bruising, increased appearance of vessels or worseningerythema of baseline skin; more rarely risks include damage to underlying structures such as nerves,cartilage, or muscle which could lead to temporary or permanent loss of sensation or motor function. ?? Benefit is precise tumor removal ?? If reconstruction is performed, it is specific to the patient and defect. ?? Discussed that the shape, size, depth of the wound is often not known until the tumor is cleared and thus the reconstruction options are sometimes not known until after tumor clearance. Occasionally, referrals to other providers may be recommended for reconstruction based on patient preference and need. ?? Reviewed the pros and cons of common reconstructions used for this tumor type, size, and location, and that reconstruction may lead to change in appearance. ?? Natural history of scar was discussed, including that the scar will continue to mature for 1-2 years. Recommended avoidance of special ointments or scar creams, and avoidance of direct sun exposure to the scar for optimal recovery. ?? Reviewed that there are some aspects of cosmesis that are dependent on patient's characteristics such as age, skin laxity/texture factors, inflammatory skin diseases such as rosacea, prior surgery/radiation, degree of actinic damage, smoking status, strength of the patient's immune system, diligentwound care, medications, and genetics. ?? Having Mohs surgery may lead to physical limitations for optimal healing, such as restricted physical activity and heavy lifting. 4. The nature of sun-induced photo-aging and skin cancers was discussed. Recommended sun avoidance when possible, especially peak hours of sun 10 am to 2pm, protective clothing such as wide-brimmed hats and long-sleeved clothing, and the use of SPF broad-spectrum sunscreen SPF 50 or higher. 5. Signs and symptoms of skin cancer reviewed. Patient to report any new, changing, or symptomatic lesions and follow up with his or her mangle roll operator or other skin provider. 6. Discussed avoiding direct sun exposure to scars for best cosmetic result. Drew Sullivan MD PhD Mohs Micrographic Surgery and Dermatologic Oncology Section of Dermatology, Department of Surgery Note initiated by Winifred Arndt, RN. Winifred Arndt, RN has performed the documentation for this encounter in the presence of and acting as a scribe for Dr. Sullivan I performed the above scribed service and agree with the accuracy of the documentation in this encounter. Reviewed and signed by: Drew Sullivan Dermatology [facility] Drew Sullivan MD - 03/25/2020 9:00 AM EDT Mohs micrographic Surgery Operative Report Patient name: Brandi Ruiz : 1955 Date: 03/25/2020 Staff Surgeon: Drew Sullivan MD PhD Nursing/Store Consultant(s): Leighann Colindres RN, Dunia Salazar COST COORDINATOR, Winifred Arndt RN, Allie Ayers LPN, Cathy Reynoso COST COORDINATOR Manager Convention (s): Telma Zurita Pre-operative diagnosis: Basal Cell Carcinoma, recurrent Post-operative diagnosis: Basal Cell Carcinoma, recurrent Location/Site: left alar crease Procedure: Mohs micrographic surgery Indication(s) for Mohs micrographic surgery: Anatomic location for tissue conservation Stages: 2 Preoperative size of tumor: 1.6 x 0.5 cm Stage I The nature and purpose of the procedure, associated risks, possible consequences and complications,and alternative forms of treatment were explained in detail. We reviewed the possible repairs based on the clinical appearance of tumor but discussed that often the repair options may not be known until the tumor has eri extirpated. Informed consent and permission to take photographs were obtained. The site was confirmed with the patient/authorized technical sales representatives/referring physician and/or a photograph form time of biopsy. A pre-operative time-out (procedural pause) was conducted with no unresolved d iscrepancies noted. Local anesthesia was obtained with 1% lidocaine with 1:100,000 epinephrine. The surgical site was prepped and draped in the usual sterile manner. With all visible gross tumor completely excised, the borders of the tumor and 2-3 mm margins were excised as a complete layer. Hemostasis was achieved by electrocoagulation. The excised tissue was oriented and divided into 2 sections, chromacoded, and submitted for frozen sections. The patient tolerated the procedure well and without complications. On microscopic evaluation of the frozen sections, residual tumor was identified as basal cell carcinoma on section A1,A2. Stage II The surgical site was re-anesthetized with 1% lidocaine with 1:100,000 epinephrine, re-prepped and redraped in a sterile manner. The residual tumor was re-excised as a complete layer 2-3mm in thickness using the Mohs map to delineate area of residual tumor. Hemostasis was achieved with electrocoagulat ion. The tissue was oriented and divided into 1 sections, chromacoded, and submitted for frozen sections. The patient tolerated the procedure well and without complications. On microscopic evaluation of the frozen sections, no residual tumor was identified on the deep or outer border of the sections. Depth of excision subcutaneous tissue Final defect size: 2.3 x 1.2 cm Repair Report (Advancement Flap) Patient name: Brandi Ruiz Staff Surgeon: .Drew Sullivan MD PhD Picker Machine Operator(s): same as above Date: 03/25/2020 Clinical Diagnosis: skin and soft tissue defect status post Mohs micrographic surgery Location/Site: Left alar crease Indication: repair of wound with spiritism of anatomy/function Defect size to be repaired: 2.2 X 1.2 cm Procedure: Advancement flap repair (tissue rearrangement) Final flap size: 5 x 2.5 cm 2 Procedure Details: Due to the size and location of the defect resulting from the complete removal of the tumor, the postoperative risk of hemorrhage, infection, and the possibility of serious deformity from scarring, and in order to restore proper function and prevent loss of function, the defect was closed with an advancement flap. The nature and purpose of the procedure, associated risks, possible consequences, complications andalternative methods of treatment were explained to the patient in detail. An informed consent was obtained. Local anesthesia was obtained with a solution of 1-% lidocaine with 1:100,000 epinephrine. The surgical site was prepped and draped in the usual sterile manner. Any beveled edges of the defect were repaired with a scalpel blade. The flap was created by making incisions along left nasolabial fold and left nasal sidewall. The flap and the wound edges were undermined, and hemostasis was obtained with electrocoagulation. The flap was advanced onto the defect. The skin edges were closed using 4.0 Monocryl dermal/subcutaneous sutures and 6.0 Prolene skin sutures. Final flap size: 5x2.5 cm2. Estimated blood loss: Minimal. Complications: None. Wound care: Routine. Patient will remove suture in 6-7 days. The patient was discharged in good condition. Total local anesthesia with 1% lidocaine used: 12 cc Total local with 0.25% bupivacaine used: 3 cc Drew Sullivan MD PhD Mohs Micrographic Surgery and Dermatologic Oncology Section of Dermatology, Department of Surgery Note initiated by Cathy Reynoso CMA has performed the documentation for this encounter in the presence of and acting as a scribe for Dr. Js Clark performed the above scribed service and agree with the accuracy of the documentation in this encounter. Reviewed and signed by: Drew Sullivan Dermatology [facility] documented in this encounter Plan of Treatment Upcoming Encounters Date Type Specialty Care Team Description 09/26/2022 Office Visit Dermatology Ambreen Burroughs MD [facility] [address] SHAYY CASTILLO-DERMAT [place], [place] [address] (Wo rk) 10/02/2022 Office Visit Pulmonology Laney Calhoun [facility] Pulmonary Medici hillary [place], [place] [address] (Wo rk) 11/07/2022 Office Visit Ophthalmology Gifty Bernal MD [facility] [place], [place] [address] (Wo rk) documented as of this encounter Visit Diagnoses Diagnosis Basal cell carcinoma of left ala nasi Basal cell carcinoma of skin of other an d unspecified parts of face documented in this encounter Care Teams Mobile Application Architect Relationship Specialty Start Date End Date Samantha Michelle MD PCP - General 09/14/11 [address] [place] [address] documented as of this encounter
--- OUTSIDE RECORDS SUMMARY | 2022-09-15 01:25 | XMS_ITS | Encounter Summary ---
:1955 Author Organization [facility] [place] [address] Care Team Providers Name Role Phone Samantha Michelle MD Primary Care Provider Encounter Details Date Type Department Care Team Description 07/13/2021 Telephone Dermatology at [facility] Ambreen Thomas MD [address] [place] [address] [facility] [phone] [place], [place] [address] (Wo rk) Social History Tobacco [...] Notes Telephone Encounter - Lisset Escoto - 07/13/2021 11:35 AM EDT I left a voicemail for Brandi Ruiz requesting a call back to schedule derm/rheum in July. I have held a spot for her on 08/02 at 3:00 documented in this encounter Plan of Treatment Upcoming Encounters Date Type Specialty Care Team Description 09/26/2022 Office Visit Dermatology Ambreen Burroughs MD [facility] [address]-DERMAT [place], [place] [address] (Wo rk) 10/02/2022 Office Visit Pulmonology Laney Calhoun M D [facility] Pulmonary Medicguido thornton [place], [place] [address] (Wo rk) 11/07/2022 Office Visit Ophthalmology Gifty Bernal MD [facility] [place], [place] [address] (Wo rk) documented as of this encounter Visit Diagnoses Not on filedocumented in this encounter Care Teams Luggage Liner Relationship Specialty Start Date End Date Samantha Michelle MD PCP - General 09/14/11 [address] [place] [address] documented as of this encounter
--- OUTSIDE RECORDS SUMMARY | 2022-09-15 01:25 | XMS_ITS | Encounter Summary ---
:1955 Author Organization [facility] [place] [address] Care Team Providers Name Role Phone Samantha Michelle MD Primary Care Provider Encounter Details Date Type Department Care Team Description 03/29/2021 Office Visit Dermatology at [facility] Savi Herron MD Dermatomyositis; [address] Abnormal MRI scan, bone; [address] RHEUMATOLOGY Abnormal MRI, [place] [id number] [phone] Social History Tobacco Use Types Packs/Day Years Used Date Former Smoker Cigarettes 0.25 7 Quit: 02/07/19 76 Smokeless Tobacco: Never Used Alcohol Use Standard Drinks/Week Comments No 0 (1 standard drink = 0.6 oz pure alcoho l) Sex Assigned at Date Recorded Female 03/23/2021 8:16 AM EDT documented as of this encounter Progress Notes Savi Herron MD - 03/29/2021 3:00 PM EDT Brandi Ruiz is seen [...] continued to have residual mild skin inflammation. She also has musculoskeletal pain that she [...] significantly with her joint pain. She still has pain in the upper arms in the muscles. The patient's MRI from 09/01/2019 demonstrated a cystic structure in the right vastus lateralis muscles as well as a heterogeneous marrow signal in the distal femoral shaft. A PET CT scan From May 2012noted uptake in the uterus and a transvaginal ultrasound was recommended and ordered, but has not been done yet. The patient has had an ophthalmologic exam that was normal on her hydroxychloroquine. She has had her COVID-19 vaccine. On examination the patient has a pink plaque on her outer arms bilaterally but no other rash including Gottron's papules, facial rash or rash over the elbows or knees. The strength in the upper arms isnormal. A discussion between the dermatology and rheumatology team ensued. We will proceed to order the PET CT scan of the right thigh and encouraged the patient to follow through with the vaginal ultrasound. We otherwise made no change in her treatment plan. documented in this encounter Plan of Treatment Upcoming Encounters Date Type Specialty Care Team Description 09/26/2022 Office Visit Dermatology Ambreen Burroughs MD [facility] [address] SHAYY CASTILLO-DERMAT [place], [place] [address] (Wo naif) 10/02/2022 Office Visit Pulmonology Laney Calhoun M D [facility] Pulmonary Medicguido thornton [place], [place] [address] (Ashvin disla) 11/07/2022 Office Visit Ophthalmology Gifty Bernal MD [facility] Dr [place], [place] [address] (Wo rk) documented as of this encounter Visit Diagnoses Diagnosis Dermatomyositis Abnormal MRI scan, bone Nonspecific (abnormal) findings on radio logical and other examination of musculoskeletal system Abnormal MRI, musculoskeletal Nonspecific (abnormal) findings on radio logical and other examination of musculoskeletal system documented in this encounter Care Teams Security Guards Dispatcher Relationship Specialty Start Date End Date Samantha Michelle MD PCP - General 09/14/11 [address] [place] [address] documented as of this encounter
--- OUTSIDE RECORDS SUMMARY | 2022-09-15 01:26 | XMS_ITS | Encounter Summary ---
:1955 Author Organization [facility] [place] [address] Care Team Providers Name Role Phone Samantha Michelle MD Primary Care Provider Reason for Referral Diagnostic Test (Routine) - Closed Specialty Diagnoses / Procedures Referred By Contact Refer red To Contact Radiology Diagnoses Abnormal MRI Cuba Martin MD [facility] Rad Mri Procedures MRI Lower Extremity Non Joint wwo Contrast [place], [place] [id number] [place] [phone] Referral ID Status Reason Start Date Expiration Date Visits V isits Requested Authorized [id number] Closed Specialty 06/06/2019 06/05/2020 1 1 Service Requested Reason for Visit Diagnostic Test (Routine) - Closed Specialty Diagnoses / Procedures Referred By Contact Refer red To Contact Radiology Diagnoses Abnormal MRI Cuba Martin MD [facility] Rad Mri Procedures MRI Lower Extremity Non Joint wwo Contrast [address] [address] Referral ID Status Reason Start Date Expiration Date Visits V isits Requested Authorized [id number] Closed Specialty 06/06/2019 06/05/2020 1 1 Service Requested Encounter Details Date Type Department Care Team Description 09/01/2019 Hospital Encounter MRI at [facility] Cuba Martin MD Abnormal MRI [facility] [place] [address] [place] [address] [phone] (Wo rk) Social History Tobacco Use Types [...] by mouth 0 (MIRALAX) 17 gram Powder in as needed. Packet ALPRAZolam (XANAX) 0.25 mg Take 0.25 mg by 1 04/26 Tablet mouth as needed. levothyroxine (SYNTHROID) daily. 4 02/18/2019 125 mcg Tablet metoprolol succinate daily. 0 03/27/2019 (TOPROL-XL) 25 mg Tablet Sustained Release 24 hr acetaminophen (TYLENOL) 500 Take 2 tablets by 60 tablet 3 0 03/03/2019 mg Tablet mouth every 6 hours as needed. escitalopram (LEXAPRO) 20 Take 20 mg by 0 mg tablet mouth daily. esomeprazole (NEXIUM) 40 mg Take 40 mg by 0 capsule mouth every morning (before breakfast). diclofenac (VOLTAREN) 75 mg Take 1 tablet by 60 tablet 3 01/01/2020 Tablet, Delayed Release mouth 2 times (E.C.) daily. betamethasone valerate Apply topically to 45 g 1 08/0511/10/2019 (VALISONE) 0.1 % affected areas on CreamIndications: Irritant the fingertips contact dermatitis, twice daily unspecified trigger including under occlusion at night. HYDROcodone-acetaminophen Take 1 tablet by 0 /03/201902/06/2020 (NORCO) 5-325 mg Tablet mouth as needed (Following R TKA). ondansetron (ZOFRAN) 4 mg Take 4 mg by mouth 6 11/24/2019 Tablet as needed. aspirin 81 mg Tablet, Take 81 mg by 0 02/06/2020 Delayed Release (E.C.) mouth daily. hydroxychloroquine Take 1 tablet by 60 tablet 3 05/12/2019 10/12/2019 (PLAQUENIL) 200 mg mouth 2 times TabletIndications: daily. Dermatomyositis triamcinolone (KENALOG) 0.1 Apply to affected 454 g 1 0 05/12/2019 08/02/2021 % OintmentIndications: areas on arms Dermatomyositis twice daily for 10-14 days. Take 5-7 days off and repeat as needed documented as of this encounter Plan of Treatment Upcoming Encounters Date Type Specialty Care Team Description 09/26/2022 Office Visit Dermatology Ambreen Burroughs MD [facility] DR SHAYY CASTILLO-DERMAT [place], [place] [address] (Wo rk) 10/02/2022 Office Visit Pulmonology Laney Calhoun M D [facility] Pulmonary Medicguido thornton [place], [place] [address] (Wo rk) 11/07/2022 Office Visit Ophthalmology Gifty Bernal MD [facility] [place], [place] [address] (Wo rk) documented as of this encounter Procedures Procedure Name Priority Date/Time Associated Diagnosis Comme nts MRI LOWER EXTREMITY Routine 09/01/2019 4:59 PM Abnormal MRI Re sults for this RIGHT NON JOINT EDT procedure ar e in WITH/WO CONTRAST the results section. documented in this encounter Results MRI Lower Extremity Non Joint wwo Contrast Right (09/01/2019 4:59 PM EDT) Anatomical Region Laterality Modality Hip, Thigh, Knee, Leg, Ankle, Foot Right Magne tic Resonance Specimen (Source) Anatomical Location Collection Method / Collectio n Time Received Time / Laterality Volume Impressions 09/02/2019 1:53 PM EDT 1. ??The tubular, septated structure within the vastus lateralis has MR characteristics that most resembles the features of a cyst. On diffusion-weighted sequences with ADC ma pping, high intensity on both suggests T2 shine through rather than restricted diffusion. Finding is mostly peripherally enhancing with the suggesti on of enhancing septations versus traversing vessels along its superolater al aspect. 2. ?? Interval development of heterogene ous marrow signal with associated heterogeneous enhancement in the distal femoral shaft extending over a 7.7 cm segment. On opposed phase and in phase s equences, there is signal dropout multiple inside account representative levels of the di stal femoral intramedullary space, suggesting that there is not a marrow re placing lesion at this time. This appearance is nonspecific. Findings coul d represent any combination of hematopoietic marrow or posttreatment ch anges related to the patient's medications. Given the patient's diagnos is of dermatomyositis and associated increased risk of malignancy, recommend close interval follow-up PETCT in 6 months to monitor for the development of focal bone lesions. ?? Thank you for letting us participate in the care of this patient. For questions regarding this report, please contact e number below. ? Narrative 09/02/2019 1:53 PM EDT EXAMINATION: MRI LOWER EXTREMITY NON JOINT WWO CONTRAST RIGHT CLINICAL HISTORY: abnl right vastus late ralis on previous MRI recommended contrast view TECHNIQUE: MR the right thigh was performed with an d without contrast. Postcontrast sequences were performed after uneventfu l administration of 28 mL of Dotarem intravenously. Sequences include axial T 1, axial T2 with fat saturation, axial vibe with fat saturation PD and postcont rast, axial DWI with ADC map, coronal T1, coronal STIR, sagittal vibe with fat saturation postcontrast COMPARISON: MR of the right thigh 06/02/2019. PET CT . FINDINGS: Again seen is a tubular, septated struct ure in the vastus lateralis that is T2 hyperintense, T1 hypointense with no int ernal enhancement other than a traversing blood vessel versus enhancing internal septations along the superolateral aspect (series 15, image 2 5 and series 16, image 64 and series 17, image 38). This finding is bright on bot h ADC and DWI, consistent with T2 shine through rather than true restricted diff usion. There is heterogeneous T1 hypointense si gnal within the medullary space of the right femur in the distal one third of t he femoral shaft, there is lobulated low T1 signal extending over a 7.7 cm segmen t of the femoral shaft. The T1 hypointense signal within the medullary space is of a similar degree of hypointensity compared to adjacent muscl e (series 12, image 13 and series 8, image 41). This area corresponds to a ST IR hyperintense segment (series 6, image 13) with predominantly peripheral enhanc ement with no internal enhancement (series 100, image 72). This lesion is b right on both DWI and ADC, consistent with T2 shine through. Intramedullary bone marrow signal drops at multiple levels including from the mid to distal femoral shaft where there is irregular enhancement and heterogeneous STIR hyperintense and T1 h ypointense signal. Procedure Note Karmen Keys MD - 09/02/2019Formattin g of this note might be different from the original. EXAMINATION: MRI LOWER EXTREMITY NON TARA NT WWO CONTRAST RIGHT CLINICAL HISTORY: abnl right vastus late ralis on previous MRI recommended contrast view TECHNIQUE: MR the right thigh was performed with an d without contrast. Postcontrast sequences were performed after uneventfu l administration of 28 mL of Dotarem intravenously. Sequences include axial T 1, axial T2 with fat saturation, axial vibe with fat saturation PD and postcont rast, axial DWI with ADC map, coronal T1, coronal STIR, sagittal vibe with fat saturation postcontrast COMPARISON: MR of the right thigh 06/02/2019. PET CT . FINDINGS: Again seen is a tubular, septated struct ure in the vastus lateralis that is T2 hyperintense, T1 hypointense with no int ernal enhancement other than a traversing blood vessel versus enhancing internal septations along the superolateral aspect (series 15, image 2 5 and series 16, image 64 and series 17, image 38). This finding is bright on bot h ADC and DWI, consistent with T2 shine through rather than true restricted diff usion. There is heterogeneous T1 hypointense si gnal within the medullary space of the right femur in the distal one third of t he femoral shaft, there is lobulated low T1 signal extending over a 7.7 cm segmen t of the femoral shaft. The T1 hypointense signal within the medullary space is of a similar degree of hypointensity compared to adjacent muscl e (series 12, image 13 and series 8, image 41). This area corresponds to a ST IR hyperintense segment (series 6, image 13) with predominantly peripheral enhanc ement with no internal enhancement (series 100, image 72). This lesion is b right on both DWI and ADC, consistent with T2 shine through. Intramedullary bone marrow signal drops at multiple levels including from the mid to distal femoral shaft where there is irregular enhancement and heterogeneous STIR hyperintense and T1 h ypointense signal. IMPRESSION 1. The tubular, septated structure withi n the vastus lateralis has MR characteristics that most resembles the features of a cyst. On diffusion-weighted sequences with ADC ma pping, high intensity on both suggests T2 shine through rather than restricted diffusion. Finding is mostly peripherally enhancing with the suggesti on of enhancing septations versus traversing vessels along its superolater al aspect. 2. Interval development of heterogeneous marrow signal with associated heterogeneous enhancement in the distal femoral shaft extending over a 7.7 cm segment. On opposed phase and in phase s equences, there is signal dropout multiple inside account representative levels of the di stal femoral intramedullary space, suggesting that there is not a marrow re placing lesion at this time. This appearance is nonspecific. Findings coul d represent any combination of hematopoietic marrow or posttreatment ch anges related to the patient's medications. Given the patient's diagnos is of dermatomyositis and associated increased risk of malignancy, recommend close interval follow-up PETCT in 6 months to monitor for the development of focal bone lesions. Thank you for letting us participate in the care of this patient. For questions regarding this report, please contact e number below. Cuba Martin MD IMG MRI ORDERABLES documented in this encounter Visit Diagnoses Diagnosis Abnormal MRI Other nonspecific (abnormal) findings on radiological and other examinations of body structure documented in this encounter Administered Medications Inactive Administered Medications - up to 3 most recent administrations Medication Order MAR Action Action Date Dose Rate Site gadoterate meglumine (DOTAREM) 0.5 Given 09/01/2019 4:59 PM EDT 28 mLs mmol/mL (376.9 mg/mL) injection 0-100 mL 0-100 mL, Intravenous, ONCE PRN, 1 dose, Starting on Sun09/01/19 at 1659, Until Sun09/01/19 at 1659, Per Protocol, Radiology Contrast, Routine documented in this encounter Care Teams Cigarette Machine Filler Relationship Specialty Start Date End Date Samantha Michelle MD PCP - General 09/14/11 [address] [place] [address] documented as of this encounter
--- OUTSIDE RECORDS SUMMARY | 2022-09-15 01:26 | XMS_ITS | Encounter Summary ---
:1955 Author Organization [facility] [place] [address] Care Team Providers Name Role Phone Samantha Michelle MD Primary Care Provider Encounter Details Date Type Department Care Team Description 11/05/2019 Orders Only Orthopaedics at [facility] Darnell Beasley Right knee pain, [facility] MD Ermias unspecified [facility] [place] [address] ORTHOPAEDIC SURGERY [place], [place] [address] Social History Tobacco Use Types [...] [facility] SHAYY CASTILLO-DERMAT [place], [place] [address] (Wo rk) 10/02/2022 Office Visit Pulmonology Laney Calhoun M D [facility] er Pulmonary Medicguido thornton [place], [place] [address] (Wo rk) 11/07/2022 Office Visit Ophthalmology Gifty Bernal MD [facility] [place], [place] [address] (Wo rk) documented as of this encounter Visit Diagnoses Diagnosis Right knee pain, unspecified chronicity documented in this encounter Care Teams Form Setter Steel Pan Forms Relationship Specialty Start Date End Date Samantha Michelle MD PCP - General 09/14/11 [address] [place] [address] documented as of this encounter
--- OUTSIDE RECORDS SUMMARY | 2022-09-15 01:26 | XMS_ITS | Encounter Summary ---
:1955 Author Organization [facility] [place] [address] Care Team Providers Name Role Phone Samantha Michelle MD Primary Care Provider Encounter Details Date Type Department Care Team Description 02/11/2020 Hospital Encounter XRay at [facility] Christophe Theodore Sinusitis, [address] [facility] [address] Ofe MD unspecified [place], [place] [facility] chronicity, [id number] [place] unspecified location [phone] [place] [address] Social History Tobacco Use Types Packs/Day Years [...] Date polyethylene glycol Take 17 g by 0 (MIRALAX) 17 gram Powder in mouth as needed. Packet ALPRAZolam (XANAX) 0.25 mg [...] 0 capsule mouth every morning (before breakfast). fluticasone Inhale 1 puff 1 each 5 02/11/2020 02/07/2022 furoate-vilanteroL (Breo into the lungs Ellipta) 200-25 mcg/dose daily. Disk with Device fluticasone propionate 2 sprays by Each 1 each 3 020 01/18/2022 (FLONASE) 50 mcg/actuation Nare route daily. Kinzers, Suspension doxycycline (VIBRAMYCIN) Take 1 capsule by 60 capsule 0 01/2403/25/2020 100 mg CapsuleIndications: mouth 2 times Mild intermittent asthma, daily. uncomplicated diclofenac EC (Voltaren) 75 Take 1 tablet by 60 tablet 3 05/25/2020 mg Tablet, Delayed Release mouth 2 times (E.C.) daily. hydroxychloroquine Take 1 tablet by 60 tablet 3 11/27/2019 02/13/2020 (PLAQUENIL) 200 mg mouth 2 times TabletIndications: daily. Dermatomyositis gabapentin (NEURONTIN) 300 Take 200 mg by 0 11/0212/05/2021 mg Capsule mouth every evening. valACYclovir (VALTREX) 1 TK 1 T PO TID 0 11/02/20 19 03/25/2020 gram Tablet TURMERIC ORAL Take by mouth. 0 020 triamcinolone (KENALOG) 0.1 Apply to affected 454 g 1 0 05/12/2019 08/02/2021 % OintmentIndications: areas on arms Dermatomyositis twice daily for 10-14 days. Take 5-7 days off and repeat as needed documented as of this encounter Plan of Treatment Upcoming Encounters Date Type Specialty Care Team Description 09/26/2022 Office Visit Dermatology Ambreen Burroughs MD [facility] DR SHAYY CASTILLO-DERMAT [place], [place] [address] (Wo rk) 10/02/2022 Office Visit Pulmonology Laney Calhoun M D [facility] Pulmonary Medici hillary [place], [place] [address] (Wo rk) 11/07/2022 Office Visit Ophthalmology Gifty Bernal MD [facility] [place], [place] [address] (Wo rk) documented as of this encounter Procedures Procedure Name Priority Date/Time Associated Diagnosis Comme nts XR SINUSES Routine 02/11/2020 9:11 AM Sinusitis, unspecified Results for this EDT chronicity, procedure are i n unspecified location the res ults section. documented in this encounter Results XR Sinuses (Generic) (02/11/2020 9:11 AM EDT) Anatomical Region Laterality Modality N/A Digital Radiography Specimen (Source) Anatomical Location Collection Method / Collectio n Time Received Time / Laterality Volume Impressions 02/11/2020 9:19 AM EDT 1. ?? Clear sinuses 2. ??No opacification, fluid or fluid le pedrito seen. Thank you for letting us participate in the care of this patient. For questions regarding this report, please contact e number below. ? Electronically signed by: RIAN Hernandez [facility] ([phone]), at 02/11/2020 9:19 AM Narrative 02/11/2020 9:19 AM EDT EXAMINATION: XR SINUSES (GENERIC) CLINICAL HISTORY: sinusitis TECHNIQUE: AP lateral and mortise view. COMPARISON: None FINDINGS: Frontal sinuses-hypoplastic right fronta l sinus. The small left frontal sinus is clear. Maxillary sinuses-no fluid level, mass l esion or erosion. Sphenoid sinus-normal. Ethmoid sinuses-normal. Procedure Note Loyda Fletcher MD - 02/11/2020Formatt ing of this note might be different from the original. EXAMINATION: XR SINUSES (GENERIC) CLINICAL HISTORY: sinusitis TECHNIQUE: AP lateral and mortise view. COMPARISON: None FINDINGS: Frontal sinuses-hypoplastic right fronta l sinus. The small left frontal sinus is clear. Maxillary sinuses-no fluid level, mass l esion or erosion. Sphenoid sinus-normal. Ethmoid sinuses-normal. IMPRESSION 1. Clear sinuses 2. No opacification, fluid or fluid leve l seen. Thank you for letting us participate in the care of this patient. For questions regarding this report, please contact e number below. Christophe Theodore MD IMG DX ORDERABLES documented in this encounter Visit Diagnoses Diagnosis Sinusitis, unspecified chronicity, unspe cified location documented in this encounter Care Teams Paralegals Relationship Specialty Start Date End Date Samantha Michelle MD PCP - General 09/14/11 [address] [place] [address] documented as of this encounter
--- OUTSIDE RECORDS SUMMARY | 2022-09-15 01:26 | XMS_ITS | Encounter Summary ---
:1955 Author Organization [facility] [place] [address] Care Team Providers Name Role Phone Samantha Michelle MD Primary Care Provider Reason for Visit Reason Onset Date Comments Medication Refill 01/01/2020 Encounter Details Date Type Department Care Team Description 01/01/2020 Refill Rheumatology at [facility] Savi Herron MD [address] [address] RHEUMATOLOGY [phone] [place], [place] [address] (Wo rk) Social History [...] [facility] DR SHAYY CASTILLO-DERMAT [place], [place] [address] (Wo rk) 10/02/2022 Office Visit Pulmonology Laney Calhoun M D [facility] Pulmonary Medicguido thornton [place], [place] [address] (Wo rk) 11/07/2022 Office Visit Ophthalmology Gifty Bernal MD [facility] [place], [place] [address] (Wo rk) documented as of this encounter Visit Diagnoses Not on filedocumented in this encounter Care Teams Professor Of Visual Arts Relationship Specialty Start Date End Date Samantha Michelle MD PCP - General 09/14/11 [address] [place] [address] documented as of this encounter
--- OUTSIDE RECORDS SUMMARY | 2022-09-15 01:26 | XMS_ITS | Encounter Summary ---
:1955 Author Organization [employer] [place] [address] Care Team Providers Name Role Phone Samantha Michelle MD Primary Care Provider Reason for Visit Reason Onset Date Comments Bumped Appointment 11/12/2019 Encounter Details Date Type Department Care Team Description 11/12/2019 Telephone Orth[facility]edics at [facility] Martha Dumont [place] [address] [address] [address] [phone] [place], [place] [address] (Wo rk) Social History Tobacco Use Types Packs/Day Years Used Date Former Smoker Cigarettes 0.25 7 Quit: 02/07/19 75 Smokeless Tobacco: Never Used Alcohol Use Standard Drinks/Week Comments No 0 (1 standard drink = 0.6 oz pure alcoho l) Sex Assigned at Date Recorded Female 03/23/2021 8:16 AM EDT documented as of this encounter Miscellaneous Notes Telephone Encounter - Allie Veras - 11/14/2019 11:07 AM EST No response from patient, letter sent Telephone Encounter - Allie Veras - 11/13/2019 12:11 PM EST LM #2 to call to reschedule bumped 02/05 appointment. Telephone Encounter - Ilda Mendoza - 11/12/2019 3:09 PM EST LM #1 to reschedule 02/05/19 to next available that works for patient. (provider will be out of the office that day.) documented in this encounter Plan of Treatment Upcoming Encounters Date Type Specialty Care Team Description 09/26/2022 Office Visit Dermatology Ambreen Burroughs MD [facility] DR SHAYY CASTILLO-DERMAT [place], [place] [address] (Wo rk) 10/02/2022 Office Visit Pulmonology Laney Calhoun M D [facility] Pulmonary Medicguido thornton [place], [place] [address] (Wo rk) 11/07/2022 Office Visit Ophthalmology Gifty Bernal MD [facility] er [place], [place] [address] (Wo rk) documented as of this encounter Visit Diagnoses Not on filedocumented in this encounter Care Teams Stopperer Assembler Relationship Specialty Start Date End Date Samantha Michelle MD PCP - General 09/14/11 [address] [place] [address] documented as of this encounter
--- OUTSIDE RECORDS SUMMARY | 2022-09-15 01:26 | XMS_ITS | Encounter Summary ---
:1955 Author Organization [facility] [place] [address] Care Team Providers Name Role Phone Samantha Michelle MD Primary Care Provider Encounter Details Date Type Department Care Team Description 02/10/2020 Orders Only Pulmonology at [facility] Christophe Theodore, Dyspnea, unspecified [facility] [place] [address] [place], [place] [address] Social History Tobacco Use Types [...] [facility] DR SHAYY CASTILLO-DERMAT [place], [place] [address] (Wo rk) 10/02/2022 Office Visit Pulmonology Laney Calhoun M D [facility] er Pulmonary Medicguido thornton [place], [place] [address] (Wo rk) 11/07/2022 Office Visit Ophthalmology Gifty Bernal MD [facility] Dr [place], [place] [address] (Wo rk) documented as of this encounter Visit Diagnoses Diagnosis Dyspnea, unspecified type documented in this encounter Care Teams Shells Inspector Relationship Specialty Start Date End Date Samantha Michelle MD PCP - General 09/14/11 [address] [place] [address] documented as of this encounter
--- OUTSIDE RECORDS SUMMARY | 2022-09-15 01:26 | XMS_ITS | Encounter Summary ---
:1955 Author Organization [facility] [place] [address] Care Team Providers Name Role Phone Samantha Michelle MD Primary Care Provider Reason for Visit Reason Onset Date Comments Medication Refill 10/12/2019 Encounter Details Date Type Department Care Team Description 10/[facility] [address] [facility] [place] [address] SHAYY CASTILLO-DERMATOLOGY [phone] [place], [place] [address] (Wo rk) Social History Tobacco [...] [facility] DR SHAYY CASTILLO-DERMAT [place], [place] [address] (Wo rk) 10/02/2022 Office Visit Pulmonology Laney Calhoun M D [facility] Pulmonary Medici ar [place], [place] [address] (Wo rk) 11/07/2022 Office Visit Ophthalmology Gifty Bernal MD [facility] Medical [facility] [place], [place] [address] (Wo rk) documented as of this encounter Visit Diagnoses Diagnosis Dermatomyositis documented in this encounter Care Teams Thread Grinder Tool Relationship Specialty Start Date End Date Samantha Michelle MD PCP - General 09/14/11 [address] [place] [address] documented as of this encounter
--- OUTSIDE RECORDS SUMMARY | 2022-09-15 01:26 | XMS_ITS | Encounter Summary ---
:1955 Author Organization [place] [address] Care Team Providers Name Role Phone Samantha Michelle MD Primary Care Provider Encounter Details Date Type Department Care Team Description 10/22/2019 Telephone [place] [facility] [place] [address] Social History Tobacco Use Types Packs/Day Years Used Date Former Smoker Cigarettes 0.25 7 Quit: 02/07/19 76 Smokeless Tobacco: Never Used Alcohol Use Standard Drinks/Week Comments No 0 (1 standard drink = 0.6 oz pure alcoho l) Sex Assigned at Date Recorded Female 03/23/2021 8:16 AM EDT documented as of this encounter Miscellaneous Notes Telephone Encounter - Amparo Howard - 10/22/2019 1:31 PM EST Left message for patient to let know we need to move her appointment on 11/03, Can offer 10/[address] Spence. documented in this encounter Plan of Treatment Upcoming Encounters Date Type Specialty Care Team Description 09/26/2022 Office Visit Dermatology Ambreen Burroughs MD [facility] ER DR SHAYY CASTILLO-DERMAT [place], [place] [address] (Wo rk) 10/02/2022 Office Visit Pulmonology Laney Calhoun M D [facility] Pulmonary Medicguido thornton [place], [place] [address] (Wo rk) 11/07/2022 Office Visit Ophthalmology Gifty Bernal MD [facility] [place], [place] [address] (Wo rk) documented as of this encounter Visit Diagnoses Not on filedocumented in this encounter Care Teams Dental Service Chief Relationship Specialty Start Date End Date Samantha Michelle MD PCP - General 09/14/11 [address] [place] [address] documented as of this encounter
--- OUTSIDE RECORDS SUMMARY | 2022-09-15 01:26 | XMS_ITS | Encounter Summary ---
:1955 Author Organization [facility] [place] [address] Care Team Providers Name Role Phone Samantha Michelle MD Primary Care Provider Encounter Details Date Type Department Care Team Description 09/23/2019 Telephone Rheumatology at [facility] Cuba Martin MD [facility] [place] [address] [place] [address] [phone] (Wo rk) Social History Tobacco Use Types [...] [facility] DR SHAYY CASTILLO-DERMAT [place], [place] [address] (Wo rk) 10/02/2022 Office Visit Pulmonology Laney Calhoun M D [facility] Pulmonary Medicguido thornton [place], [place] [address] (Wo rk) 11/07/2022 Office Visit Ophthalmology Gifty Bernal MD [facility] [place], [place] [address] (Wo rk) documented as of this encounter Visit Diagnoses Diagnosis Bone marrow disease Unspecified diseases of blood and blood- forming organs documented in this encounter Care Teams Welding Machine Setter Relationship Specialty Start Date End Date Samantha Michelle MD PCP - General 09/14/11 [address] [place] [address] documented as of this encounter
--- OUTSIDE RECORDS SUMMARY | 2022-09-15 01:26 | XMS_ITS | Encounter Summary ---
:1955 Author Organization [facility] Address [facility] [place] [address] Care Team Providers Name Role Phone Samantha Michelle MD Primary Care Provider Encounter Details Date Type Department Care Team Description 07/15/2019 Laboratory Lab 3L Bessy Bennett; Appointment [facility] Inflammat ory arthropathy; [facility] Arthralgia, unspecified join t; [facility] Myalgia; Drive Positive JANETH (antinuclear an tibody); [place], [place] Polyarthritis w ith positive rheumatoid factor; [phone] Pain in both hands; [phone] Chronic pain of both knees; Pain in both fe et; Chronic cough; SOB (shortness of breath); Dysphagia, unsp ecified type; Constipation, u nspecified constipation type Social History Tobacco Use Types Packs/Day Years [...] 09/26/2022 Office Visit Dermatology Ambreen Burroughs MD [facility] ER DR SHAYY CASTILLO-DERMAT [place], [place] [address] (Wo rk) 10/02/2022 Office Visit Pulmonology [place], Laney C, M D [facility] Pulmonary Medicguido thornton [place], [place] [address] (Wo rk) 11/07/2022 Office Visit Ophthalmology Gifty Bernal MD [facility] [place], [place] [address] (Wo rk) documented as of this encounter Procedures Procedure Name Priority Date/Time Associated Diagnosis Comme nts HC C-REACTIVE Routine 07/15/2019 2:11 PM Inflammatory Results for this PROTEIN EDT arthropathy procedure are in Positive JANETH the results (antinuclear section. antibody) SOB (shortness of breath) HEMOGRAM Routine 07/15/2019 2:11 PM Rash Results for this EDT Inflammatory procedure are i n arthropathy the results Arthralgia, section. unspecified join t Myalgia Positive JANETH (antinuclear antibody) Polyarthritis with positive rheumatoid factor Pain in both lynn ds Chronic pain of both knees Pain in both fee t Chronic cough DIFFERENTIAL, Routine 07/15/2019 2:11 PM Rash Results for this AUTOMATED EDT Inflammatory procedure are i n arthropathy the results Arthralgia, section. unspecified join t Myalgia Positive JANETH (antinuclear antibody) Polyarthritis with positive rheumatoid factor Pain in both lynn ds Chronic pain of both knees Pain in both fee t Chronic cough HC CREATININE Routine 07/15/2019 2:11 PM Inflammatory Results for this EDT arthropathy procedure are in Positive JANETH the results (antinuclear section. antibody) SOB (shortness of breath) HC PCH ALDOLASE Routine 07/15/2019 2:11 PM Inflammatory Result s for this EDT arthropathy procedure are in Positive JANETH the results (antinuclear section. antibody) SOB (shortness of breath) HC ESR-SEDIMENTATION Routine 07/15/2019 2:11 PM Inflammatory R esults for this RATE, BLOOD EDT arthropathy procedure are in Positive JANETH the results (antinuclear section. antibody) SOB (shortness of breath) CBC,PLT & AUTO Routine 07/15/2019 2:11 PM Rash DIFF EDT Inflammatory arthropathy Arthralgia, unspecified join t Myalgia Positive JANETH (antinuclear antibody) Polyarthritis with positive rheumatoid factor Pain in both lynn ds Chronic pain of both knees Pain in both fee t Chronic cough HC THYROID Routine 07/15/2019 2:11 PM Dysphagia, Results f or this STIMULATING HORMONE, EDT unspecified type procedure are in SERUM Constipation, the results unspecified section. constipation type HC CREATINE Routine 07/15/2019 2:11 PM Inflammatory Results f or this PHOSPHOKINASE, SERUM EDT arthropathy procedure are in Positive JANETH the results (antinuclear section. antibody) SOB (shortness of breath) HEPATIC FUNCTION Routine 07/15/2019 2:11 PM Inflammatory Resul ts for this PANEL EDT arthropathy procedure are in Positive JANETH the results (antinuclear section. antibody) SOB (shortness of breath) documented in this encounter Results (ABNORMAL) Differential, Automated (07/15/2019 2:11 PM EDT) athologist Signature Neutrophils % 68.0 % [facility] Neutr Abs (ANC) 5.75 1.70 - [facility] 6.10 [facility] x10(3)/[facility] LABORATORY Lymphocytes % 21.6 % [facility] Lymphocytes Abs 1.8 0.9 - 3.2 [facility] x10(3)/[facility] LABORATORY Monocytes % 6.3 % [facility] Monocyte Abs 0.5 0.3 - 0.9 [facility] x10(3)/[facility] LABORATORY Eosinophils % 3.0 % [facility] Eosinophils Abs 0.2 0.0 - 0.4 [facility] x10(3)/[facility] LABORATORY Basophils % 0.5 % [facility] Basophils Abs 0.0 0.0 - 0.1 [facility] x10(3)/[facility] LABORATORY Immature Gran % 0.60 % [facility] Comment: Immature granulocytes(IG's)percentage an d absolute count will include metamyelocytes, myelocytes, and promyelo cytes. Blood smears from CBCs yielding IG's will be scanned manually for concor dance. If this scan disagrees with the automated IG or if promyelocytes are not ed, a manual differential will be performed. Kavitha Gran Abs 0.05 (H) 0.00 - 0.04 x10(3)/[facility] LABORATORY Specimen Anatomical Collection Method Collection Time Receive d Time (Source) Location / / Volume Laterality Blood specimen 07/15/2019 2:11 PM 019 2:17 (specimen) EDT PM EDT Resulting Agency Comment Spec In Lab Cuba Martin MD HEMATOLOGY ORDERABLES Performing Organization Address City/State/[place] [address] (ABNORMAL) Hemogram (07/15/2019 2:11 PM EDT) Analysis Performed At Patho logist Time Signature WBC 8.4 4.0 - 9.5 [facility] LABORATORY RBC 4.47 4.00 - BESSY JERRY 5.21 [facility] x10(6)/[facility] LABORATORY Hemoglobin 11.2 (L) 11.7 - [facility] 15.5 gm/dL [facility] Hematocrit 36.2 35.7 - [facility] JERRY 45.8 % [facility] MCV 81.0 (L) 82.6 - [facility] 94.4 [facility] LABORATORY MCH 25.1 (L) 27.1 - [facility] JERRY 32.0 pg [facility] MCHC 30.9 (L) 31.7 - [facility] 35.0 gm/dL [facility] Platelets 351 145 - 357 [facility] x10(3)/[facility] RDWSD 47.3 (H) 37.0 - [facility] JERRY 46.0 [facility] LABORATORY RDWCV 16.0 (H) 11.5 - [facility] JERRY 14.1 % [facility] MPV 9.6 7.6 - 12.9 [facility] nRBC % Auto 0.0 % [facility] nRBC Abs Auto 0.000 0.000 - [facility] 0.000 [facility] x10(3)/[facility] LABORATORY Specimen Anatomical Collection Method Collection Time Receive d Time (Source) Location / / Volume Laterality Blood specimen 07/15/2019 2:11 PM 019 2:17 (specimen) EDT PM EDT Resulting Agency Comment Spec In Lab Cuba Martin MD HEMATOLOGY ORDERABLES Performing Organization Address City/State/[place] [address] TSH (07/15/2019 2:11 PM EDT) athologist Signature TSH 3.12 0.27 - 4.20 [facility] mcIU/mL [facility] Specimen Anatomical Collection Method Collection Time Receive d Time (Source) Location / / Volume Laterality Blood specimen 07/15/2019 2:11 PM 019 2:17 (specimen) EDT PM EDT Resulting Agency Comment Spec In Lab Lisset Monson Sue [facility] CHEMISTRY ORDERABLES Performing Organization Address City/State/ZIP Code Phon e Number [address] (ABNORMAL) CRP, acute inflammation (07/15/2019 2:11 PM EDT) athologist [facility] CRP 31.5 (H) <=4.9 mg/L [facility] Specimen Anatomical Collection Method Collection Time Receive d Time (Source) Location / / Volume Laterality Blood specimen 07/15/2019 2:11 PM 019 2:17 (specimen) EDT PM EDT Resulting Agency Comment Spec In Lab Cuba Martin MD CHEMISTRY ORDERABLES Performing Organization Address City/State/[place] [address] Creatinine (07/15/2019 2:11 PM EDT) athologist [facility] Creatinine 0.73 0.70 - [facility] 1.20 mg/dL [facility] Estimated GFR 88 >=60 [facility] mL/min/1.7 [facility] 3 [facility] [place] [place] HOSPITAL LABORATORY Comment: The eGFR was calculated using the CKD-EP I equation. As with all creatinine based estimates of kidney function, eGFR values calculated with the CKD-EPI equation are not accurate in patients wi th acute kidney failure, extremes of body mass or the acutely ill. http://[employer].SocialTagg/DHnkf eGFR 102 >=60 mL/min/1.73 m?? [facility] Comment: The eGFR was calculated using the CKD-EP I equation. As with all creatinine based estimates of kidney function, eGFR values calculated with the CKD-EPI equation are not accurate in patients wi th acute kidney failure, extremes of body mass or the acutely ill. http://[employer]DHMCnkf Specimen Anatomical Collection Method Collection Time Receive d Time (Source) Location / / Volume Laterality Blood specimen 07/15/2019 2:11 PM 019 2:17 (specimen) EDT PM EDT Resulting Agency Comment Spec In Lab Cuba Martin MD CHEMISTRY ORDERABLES Performing Organization Address City/[facility]/ZIP Code Phon e Number [address] Hepatic Function Panel (07/15/2019 2:11 PM EDT) P athologist Signature Total Protein 7.9 6.1 - 8.0 [facility] JERRY gm/dL [facility] Albumin 4.1 3.2 - 5.2 [facility] JERRY gm/dL [facility] AST 14 0 - 30 [facility] unit/L [facility] ALT 10 0 - 30 [facility] unit/L [facility] Alk Phos 101 35 - 105 [facility] JERRY unit/L [facility] Total 0.3 0.2 - 1.3 [employer] Bilirubin mg/dL [facility] Bili, Direct 0.1 0.0 - 0.3 [facility] JERRY mg/dL [facility] Specimen Anatomical Collection Method Collection Time Receive d Time (Source) Location / / Volume Laterality Blood specimen 07/15/2019 2:11 PM 019 2:17 (specimen) EDT PM EDT Resulting Agency Comment Spec In Lab Cuba Martin MD CHEMISTRY ORDERABLES Performing Organization Address City/[facility] [place] [address] (ABNORMAL) Sedimentation rate (07/15/2019 2:11 PM EDT) P athologist Signature Sed Rate 43 (H) 0 - 20 [facility] mm/hr [facility] Specimen Anatomical Collection Method Collection Time Receive d Time (Source) Location / / Volume Laterality Blood specimen 07/15/2019 2:11 PM 019 2:17 (specimen) EDT PM EDT Resulting Agency Comment Spec In Lab Cuba Martin MD HEMATOLOGY ORDERABLES Performing Organization Address City/[facility]/ZIP Code Phon e Number [address] CK (07/15/2019 2:11 PM EDT) athologist Signature CK, Total 42 0 - 160 [facility] unit/L [facility] Specimen Anatomical Collection Method Collection Time Receive d Time (Source) Location / / Volume Laterality Blood specimen 07/15/2019 2:11 PM 019 2:17 (specimen) EDT PM EDT Resulting Agency Comment Spec In Lab Cuba Martin MD CHEMISTRY ORDERABLES Performing Organization Address [facility]/ZIP [facility] Phon e Number [address] Aldolase (07/15/2019 2:11 PM EDT) athologist Signature Aldolase 4.4 <7.7 unit/L [facility] Comment: Test Performed by: [address] [address] Specimen Anatomical Collection Method Collection Time Receive d Time (Source) Location / / Volume Laterality Blood specimen 07/15/2019 2:11 PM 019 8:11 (specimen) EDT AM EDT Resulting Agency Comment Spec In Lab Cuba Martin MD CHEMISTRY ORDERABLES Performing Organization Address City/[facility] [place] [address] documented in this encounter Visit Diagnoses Diagnosis Rash Rash and other nonspecific skin eruption Inflammatory arthropathy Arthropathy, unspecified, site unspecifi ed Arthralgia, unspecified joint Myalgia Mylagia and myositis, unspecified Positive JANETH (antinuclear antibody) Other and unspecified nonspecific immuno logical findings Polyarthritis with positive rheumatoid f actor Pain in both hands Chronic pain of both knees Pain in both feet Pain in limb Chronic cough Cough SOB (shortness of breath) Shortness of breath Dysphagia, unspecified type Constipation, unspecified constipation t ype documented in this encounter Care Teams Cytogeneticist Relationship Specialty Start Date End Date Samantha Michelle MD PCP - General 09/14/11 [address] [place] [address] documented as of this encounter
--- OUTSIDE RECORDS SUMMARY | 2022-09-15 01:26 | XMS_ITS | Encounter Summary ---
:1955 Author Organization [facility] [place] [address] Care Team Providers Name Role Phone Samantha Michelle MD Primary Care Provider Encounter Details Date Type Department Care Team Description 08/07/2019 Orders Only Rheumatology at [facility] Savi Herron MD [address] [address] RHEUMATOLOGY [phone] [place], [place] [address] (Wo rk) Social History [...] 09/26/2022 Office Visit Dermatology Ambreen Burroughs MD [facility] DR SHAYY CASTILLO-DERMAT [place], [place] [address] (Wo rk) 10/02/2022 Office Visit Pulmonology Laney Calhoun M D [facility] Pulmonary Mati thornton [place], [place] [address] (Wo rk) 11/07/2022 Office Visit Ophthalmology Gifty Bernal MD [facility] Medical [facility] Dr [place], [place] [address] (Wo rk) documented as of this encounter Visit Diagnoses Not on filedocumented in this encounter Care Teams Cat Operator Relationship Specialty Start Date End Date Samantha Michelle MD PCP - General 09/14/11 [address] [place] [address] documented as of this encounter
--- OUTSIDE RECORDS SUMMARY | 2022-09-15 01:26 | XMS_ITS | Encounter Summary ---
:1955 Author Organization [facility] [place] [address] Care Team Providers Name Role Phone Samantha Michelle MD Primary Care Provider Encounter Details Date Type Department Care Team Description 09/26/2019 Telephone Gastroenterology at [facility] Lisset Rogers [facility] [place] [address] [facility] [phone] GASTROENTEROLOGY [place] [id number] (Wo rk) Social History Tobacco Use Types Packs/Day Years Used Date Former Smoker Cigarettes 0.25 7 Quit: 02/07/19 76 Smokeless Tobacco: Never Used Alcohol Use Standard Drinks/Week Comments No 0 (1 standard drink = 0.6 oz pure alcoho l) Sex Assigned at Date Recorded Female 03/23/2021 8:16 AM EDT documented as of this encounter Miscellaneous Notes Telephone Encounter - Lisset Rogers APRN - 09/26/2019 3:19 PM EDT Called patient to review unexpected results on barium swallow. Most likely polyps, but should be directly visualized with EGD. She has an EGD scheduled on 11/03/19. Patient expressed an understanding. documented in this encounter Plan of Treatment Upcoming Encounters Date Type Specialty Care Team Description 09/26/2022 Office Visit Dermatology Ambreen Burroughs MD [facility] DR SHAYY CASTILLO-DERMAT [place], [place] [address] (Wo rk) 10/02/2022 Office Visit Pulmonology Laney Calhoun M D [facility] Pulmonary Medicguido thornton [place], [place] [address] (Wo rk) 11/07/2022 Office Visit Ophthalmology Gifty Bernal MD [facility] [place], [place] [address] (Wo rk) documented as of this encounter Visit Diagnoses Not on filedocumented in this encounter Care Teams Machinist Wood Relationship Specialty Start Date End Date Samantha Michelle MD PCP - General 09/14/11 [address] [place] [address] documented as of this encounter
--- OUTSIDE RECORDS SUMMARY | 2022-09-15 01:26 | XMS_ITS | Encounter Summary ---
:1955 Author Organization [facility] [place] [address] Care Team Providers Name Role Phone Samantha Michelle MD Primary Care Provider Reason for Referral Consultation (Routine) - Closed Specialty Diagnoses / Procedures Referred By Contact Refer red To Contact Orthopaedics Diagnoses Positive JANETH (antinuclear antibody) Pain in both hands Polyarthritis with positive rheumatoid factor Chronic pain of right knee Primary osteoarthritis of left ankle LEFT ANKLE Cuba Martin MD [facility] [address] [facility] [address] [place] [address] Fax: Referral ID Status Reason Start Date Expiration Date Visits V isits Requested Authorized [id number] Closed Consult, 09/29/2019 09/28/2020 1 1 Test & Treat Encounter Details Date Type Department Care Team Description 09/29/2019 Office Visit Rheumatology at [facility] Cuab Martin, Positive JANETH (antinuclear an tibody); [facility] Pain in both hands; [facility] Polyarthritis with positive rheumatoid factor; [place], [place] Center Chronic pain of right knee; [id number] [place], [place] Primary osteoarthritis of le ft ankle; [phone] High risk medication use; [phone] Dermatomyositis (Work) Social History Tobacco Use Types Packs/Day Years [...] Sign Reading Time Taken Comments Blood Pressure 141/58 09/29/2019 9:20 AM EST Pulse 74 09/29/2019 9:20 AM EST Temperature 36.5 ??C (97.7 ??F) 09/29/2019 9:20 AM EST Respiratory Rate - - Oxygen Saturation 97% 09/29/2019 9:20 AM EST Inhaled Oxygen Concentration - - Weight 141.1 kg (311 lb) 09/29/2019 9:20 AM EST Height 175.9 cm (5' 9.25) 09/29/2019 9:20 AM EST Body Mass Index 45.6 09/29/2019 9:20 AM EST documented in this encounter Progress Notes Cuba Martin MD - 09/29/2019 9:30 AM EST Rheumatology Follow up Note RHeum HX History of steatosis grade 3 and fibrosis grade 1 Janeth 1:160, CRp 3 (WNL.o3), ESR 37 CRPrepear JANETH WNL MPO, AR-3, PE,-C ANCA double-stranded DNA CCP PEE within normal limits RF elevated to 17 CRP 29, CKs WNL Myositis antibody panel anti--LORI 1, IgG p week positive at 32 She is not a candidate for methotrexate due to her history of steatosis Aviod LIVER toxic rheum Meds Interval Hx Brandi Ruiz is a 64 y.o. female who presents today for follow-up She describes no weakness in theupper extremity her lower extr weakness ahs improved since the knee replacement and this is not progressed. Abnormal MRI enhancement was discussed the right leg. PET/CT in 6 months patient understands orders placed. She reports left shoulder pain left elbow pain left ankle pain. No swelling warmth or redness of the shoulder elbow but she does have chronic swelling of the left ankle. She also has chronic right knee swelling states that her right knee replacement is having some issues sore or so wantsto get second opinion at [facility] she may need a possible revision. She was seen at the Derm room clinicwas started on Celebrex couple months ago for the joint pains. She has not done any physical therapyfor either of these but will do some at home. No morning stiffness She uses naproxen daily which seems to be helping Followed by dermatology Overall she feels like she is doing better since starting hydroxychloroquine. She takes her Nexium at night She is scheduled for endoscopy colonoscopy in the month. Remainder review of system within normal limits Past Medical History: Diagnosis Date ??? Allergy [...] female 2009 heavy menses, fibroids ??? Headache(784.0) 1987 migraine headaches ??? Heart disorder 1972 svt ??? Hypothyroid ??? Hypothyroidism 10/28/2012 ??? Mental or behavioral problem 1977 anxiety ??? SVT (supraventricular tachycardia) Patient Active Problem List Diagnosis Date Noted ??? History of basal cell carcinoma 10/31/2016 ??? SVT (supraventricular tachycardia) ??? Hypothyroid ??? Anemia 10/28/2012 ??? Hypothyroidism 10/28/2012 ??? Anxiety 10/28/2012 Past Surgical History: Procedure Laterality Date ??? JOINT REPLACEMENT 1999 left knee arthroscopy ??? PRO COLONOSCOPY, BIOPSY 04/09/2012 COLONOSCOPY FLEXIBLE, WITH BX performed by DONALD VALIENTE at [facility] ??? PRO UPPER GI ENDOSCOPY, BIOPSY 04/09/2012 EGD WITH BIOPSY performed by DONALD VALIENTE at [facility] ??? STOMACH SURGERY 1975 ruptured ectopic, appendectomy, 1994 choleysectomy ??? UPPER GI ENDOSCOPY, EXAM 04/09/2012 UPPER GI ENDOSCOPY performed by DONALD VALIENTE at [facility] Family History Problem Relation Age of Onset ??? Alcohol Use Disorder Father ??? Depression Mother ??? Depression Father Social History Socioeconomic History ??? Marital status: Spouse name: None ??? Number of children: None ??? Years of education: None ??? Highest education level: None Occupational History ??? None Social Needs ??? Financial resource strain: None ??? Food insecurity: Worry: None Inability: None ??? Transportation needs: Medical: None Non-medical: None Tobacco Use ??? Smoking status: Former Smoker Packs/day: 0.25 Years: 7.00 Pack years: 1.75 Types: Cigarettes Last attempt to quit: 02/07/1975 Years since quittin.6 ??? Smokeless tobacco: Never Used Substance and Sexual Activity ??? Alcohol use: No ??? Drug use: No ??? Sexual activity: None Lifestyle ??? Physical activity: Days per week: None Minutes per session: None ??? Stress: None Relationships ??? Social connections: Talks on phone: None Gets together: None Attends hinduism service: None Active member of club or organization: None Attends meetings of clubs or organizations: None Relationship status: None ??? Intimate partner violence: Fear of current or ex partner: None Emotionally abused: None Physically abused: None Forced sexual activity: None Other Topics Concern ??? Exercise: Patient reported No ??? Abuse or Threat: Physical, Sexual, Verbal No Social History Narrative ??? None Current Outpatient Medications Medication Sig Dispense Refill ??? diclofenac (VOLTAREN) 75 mg Tablet, Delayed Release (E.C.) Take 1 tablet by mouth 2 times daily.60 tablet 3 ??? betamethasone valerate (VALISONE) 0.1 % Cream Apply topically to affected areas on the fingertips twice daily including under occlusion at night. 45 g 1 ??? polyethylene glycol (MIRALAX) 17 gram Powder in Packet Take 17 g by mouth daily. ??? ALPRAZolam (XANAX) 0.25 mg Tablet Take 0.25 mg by mouth as needed. 1 ??? ondansetron (ZOFRAN) 4 mg Tablet Take 4 mg by mouth as needed. 6 ??? hydroxychloroquine (PLAQUENIL) 200 mg Tablet Take 1 tablet by mouth 2 times daily. 60 tablet 3 ??? triamcinolone (KENALOG) 0.1 % Ointment Apply [...] Take 20 mg by mouth daily. ??? HYDROcodone-acetaminophen (NORCO) 5-325 mg Tablet Take 1 tablet by mouth as needed (Following R TKA). 0 ??? aspirin 81 mg Tablet, Delayed Release (E.C.) Take 81 mg by mouth daily. ??? esomeprazole (NEXIUM) 40 mg capsule Take 40 mg by mouth every morning (before breakfast). No current facility-administered medications for this visit. Current Outpatient Medications on File Prior to Visit Medication Sig Dispense Refill ??? diclofenac (VOLTAREN) 75 mg Tablet, Delayed Release (E.C.) Take 1 tablet by mouth 2 times daily.60 tablet 3 ??? betamethasone valerate (VALISONE) 0.1 % Cream Apply topically to affected areas on the fingertips twice daily including under occlusion at night. 45 g 1 ??? polyethylene glycol (MIRALAX) 17 gram Powder in Packet Take 17 g by mouth daily. ??? ALPRAZolam (XANAX) 0.25 mg Tablet Take 0.25 mg by mouth as needed. 1 ??? ondansetron (ZOFRAN) 4 mg Tablet Take 4 mg by mouth as needed. 6 ??? hydroxychloroquine (PLAQUENIL) 200 mg Tablet Take 1 tablet by mouth 2 times daily. 60 tablet 3 ??? triamcinolone (KENALOG) 0.1 % Ointment Apply [...] Take 20 mg by mouth daily. ??? HYDROcodone-acetaminophen (NORCO) 5-325 mg Tablet Take 1 tablet by mouth as needed (Following R TKA). 0 ??? aspirin 81 mg Tablet, Delayed Release (E.C.) Take 81 mg by mouth daily. ??? esomeprazole (NEXIUM) 40 mg capsule Take 40 mg by mouth every morning (before breakfast). No current facility-administered medications on file prior to visit. Allergies Allergen Reactions ??? Ceclor [Cefaclor] Hives ??? Pcn [Penicillins] Anaphylaxis ??? Phenergan [Promethazine] Anaphylaxis ??? Preservative Anaphylaxis Sulfites ??? Sulfite ??? Vancomycin Hives Physical Exam: BP 141/58 Pulse 74 Temp 36.5 ??C (97.7 ??F) (Oral) Ht 175.9 cm (5' 9.25) Wt (!) 141.1 kg (311 lb) SpO2 97% BMI 45.60 kg/m?? General: NAD, high BMI HEENT: Mucous membranes are moist, Whitish area left bucal mucosal appears to be healed, temporal artery non-palpable, erythema on the cheek Not true malar rash xs nasal labial folds Neck: Supple, no lymphadenopathy, full range of motion, strength wnl Cardiovascular: RR, Lungs: Clear to auscultation bilaterally Abdomen: Soft, non tender, non distended, + bowel sounds, no hepatosplenomegaly. Neuro: Alert and oriented x3. Cranial nerves II through XII grossly intact. - Strength 5/5 throughout, Skin: (-)ulcers, patches of erythem rash has improved Vascular: Pulses are equal in all extremities no guuttron papules, holster sign, v siging. MSK Back: Non tender over the spine and costovertebral angles bilaterally. Extremities Shoulders: FROM, non-tender to palpation on the right left shoulder pain with active range of motionbut no passive range of motion. Elbows:FROM, (-)pain, (-)nodules medial epicondyle pain possibly some bursitis Wrists: FROM, no swelling, non-tender Hands: no MCP compression tenderness, full claw and fist, mild puffiness of the MCPs Knees: Rt knee swollen, scar, not in brace on the right Ankles: FROM, non-tender, no swelling left ankle mildly swollen not warm not red with some tenderness anteriorly. Feet: no MTP compression tenderness Spine, shoulders, elbows, wrists, fingers, hips, knees and ankles; no active swelling, tenderness orsynovitis at any joint. No soft tissue nodules. Assessment: Brandi Ruiz is a 64 y.o. female who presents today follow up amyopathic dermatomyositis - gG LORI antibody - presented with polyarthralgia, myalgia, dysphagia, and photosensitive rash over the summerwith right knee pain. Overall she is doing better in regards to her fatigue joint pains or arthralgia. She has no weakness on exam. 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 Though patient may be at less risk with LORI antibody compared to other antibodiesWhich are more assocaited with skin fidnings Left Shoulder pain likely tendinopathy Left ankle pain she did have some inflammatory signs last visit may benefit from injections unclear whether this is to the to the right knee though. Elbow pain we will try compression, elbow pad We talked about methotrexat a way to avoid his liver toxic Joint exam: However looking through the chart she has a history of some steatosis and fibrosis. I can help you with with his Orders Placed This Encounter Procedures ??? CRP, acute inflammation ??? CBC (with Diff) ??? Creatinine ??? Hepatic Function Panel ??? Sedimentation rate ??? CK ??? Hemogram ??? Differential, Automated ??? Referral to Orthopaedics documented in this encounter Plan of Treatment Upcoming Encounters Date Type Specialty Care Team Description 09/26/2022 Office Visit Dermatology Ambreen Burroughs MD [facility] DR SHAYY [place]MAT [place], [place] [address] (Wo rk) 10/02/2022 Office Visit Pulmonology Laney Calhoun M D [facility] Pulmonary Medici [place]illary [place], [place] [address] (Wo rk) 11/07/2022 Office Visit Ophthalmology Gifty Bernal MD [facility] [place], [place] [address] (Wo rk) Scheduled Referrals Name Type Priority Associated Diagnoses Order S chedule Referral to Outpatient Routine Positive JANETH Ordered: Orthopaedics Referral (antinuclear ant ibody) 09/29/2019 Pain in both lynn ds Polyarthritis with positive rheumatoid factor Chronic pain of right knee Primary osteoarthritis of left ankle documented as of this encounter Procedures Procedure Name Priority Date/Time Associated Comments Diagnosis HC C-REACTIVE Routine 09/29/2019 10:40 AM Positive JANETH Results for this PROTEIN EST (antinuclear procedure are i n antibody) the results Pain in both lynn ds section. Polyarthritis with positive rheumatoid factor HEMOGRAM Routine 09/29/2019 10:40 AM Positive JANETH Results for this EST (antinuclear procedure are i n antibody) the results Pain in both lynn ds section. Polyarthritis with positive rheumatoid factor DIFFERENTIAL, Routine 09/29/2019 10:40 AM Positive JANETH Results for this AUTOMATED EST (antinuclear procedure are i n antibody) the results Pain in both lynn ds section. Polyarthritis with positive rheumatoid factor HC CREATININE Routine 09/29/2019 10:40 AM Positive JANETH Results for this EST (antinuclear procedure are i n antibody) the results Pain in both lynn ds section. Polyarthritis with positive rheumatoid factor HC ESR-SEDIMENTATION Routine 09/29/2019 10:40 AM Positive JANETH Results for this RATE, BLOOD EST (antinuclear procedure are i n antibody) the results Pain in both lynn ds section. Polyarthritis with positive rheumatoid factor HC CBC,PLT & AUTO Routine 09/29/2019 10:40 AM Positive JANETH DIFF EST (antinuclear antibody) Pain in both lynn ds Polyarthritis with positive rheumatoid factor HC CREATINE Routine 09/29/2019 10:40 AM Positive JANETH Results for this PHOSPHOKINASE, SERUM EST (antinuclear procedu re are in antibody) the results Pain in both lynn ds section. Polyarthritis with positive rheumatoid factor HEPATIC FUNCTION Routine 09/29/2019 10:40 AM Positive JANETH Resu lts for this PANEL EST (antinuclear procedure are i n antibody) the results Pain in both lynn ds section. Polyarthritis with positive rheumatoid factor documented in this encounter Results Differential, Automated (09/29/2019 10:40 AM EST) P athologist Signature Neutrophils % 63.1 % [facility] LABORATORY Neutr Abs (ANC) 4.98 1.70 - [facility] 6.10 [facility] x10(3)/[facility] LABORATORY Lymphocytes % 26.3 % [facility] Lymphocytes Abs 2.1 0.9 - 3.2 [facility] x10(3)/[facility] LABORATORY Monocytes % 5.9 % [facility] Monocyte Abs 0.5 0.3 - 0.9 [facility] x10(3)/[facility] LABORATORY Eosinophils % 3.4 % [facility] Eosinophils Abs 0.3 0.0 - 0.4 [facility] x10(3)/[facility] LABORATORY Basophils % 0.8 % [facility] Basophils Abs 0.1 0.0 - 0.1 [facility] x10(3)/[facility] LABORATORY Immature Gran % 0.50 % [facility] Comment: Immature granulocytes(IG's)percentage an d absolute count will include metamyelocytes, myelocytes, and promyelo cytes. Blood smears from CBCs yielding IG's will be scanned manually for concor dance. If this scan disagrees with the automated IG or if promyelocytes are not ed, a manual differential will be performed. Kavitha Gran Abs 0.04 0.00 - 0.04 x10(3)/[facility] LABORATORY Specimen Anatomical Collection Method Collection Time Receive d Time (Source) Location / / Volume Laterality Blood specimen 09/29/2019 10:40 9 (specimen) AM EST 10:53 AM EST Resulting Agency Comment Spec In Lab Cuba Martin MD HEMATOLOGY ORDERABLES Performing Organization Address City/State/[place] [address] (ABNORMAL) Hemogram (09/29/2019 10:40 AM EST) Analysis Performed At Patho logist Time Signature WBC 7.9 4.0 - 9.5 [facility] x10(3)/[facility] LABORATORY RBC 4.98 4.00 - [facility] 5.21 [facility] x10(6)/[facility] LABORATORY Hemoglobin 11.9 11.7 - [facility] 15.[facility] gm/dL [facility] LAB[facility]ATORY Hematocrit 38.7 35.7 - [facility] 45.8 % [facility] MCV 77.7 (L) 82.6 - [facility] 94.4 [facility] LABORATORY MCH 23.9 (L) 27.1 - [facility] 32.0 pg [facility] LAB[facility] MCHC 30.7 (L) 31.7 - [facility] 35.0 gm/dL [facility] Platelets 301 145 - 357 [facility] x10(3)/[facility] LABORATORY RDWSD 48.2 (H) 37.0 - [facility] 46.0 [facility] LABORATORY RDWCV 17.0 (H) 11.5 - [facility] 14.1 % [facility] LABORATORY MPV 10.3 7.6 - 12.9 [facility] LABORATORY nRBC % Auto 0.0 % [facility] LABORATORY nRBC Abs Auto 0.000 0.000 - [facility] 0.000 [facility] x10(3)/[facility] LABORATORY Specimen Anatomical Collection Method Collection Time Receive d Time (Source) Location / / Volume Laterality Blood specimen 09/29/2019 10:40 9 (specimen) AM EST 10:53 AM EST Resulting Agency Comment Spec In Lab Cuba Martin MD HEMATOLOGY ORDERABLES Performing Organization Address City/State/[place] [address] (ABNORMAL) CRP, acute inflammation (09/29/2019 10:40 AM EST) P athologist Signature CRP 18.5 (H) <=4.9 mg/L [facility] LABORATORY Specimen Anatomical Collection Method Collection Time Receive d Time (Source) Location / / Volume Laterality Blood specimen 09/29/2019 10:40 9 (specimen) AM EST 10:53 AM EST Resulting Agency Comment Spec In Lab Cuba Martin MD CHEMISTRY ORDERABLES Performing Organization Address City/[facility]/ZIP Code Phon e Number [address] (ABNORMAL) Creatinine (09/29/2019 10:40 AM EST) Analysis Performed At Patho logist Time Signature Creatinine 0.62 (L) 0.70 - [facility] 1.20 mg/dL [facility] Estimated GFR 96 >=60 [facility] mL/min/1.7 [facility] 3 m?? [facility] LABORATORY Comment: The eGFR was calculated using the CKD-EP I equation. As with all creatinine based estimates of kidney function, eGFR values calculated with the CKD-EPI equation are not accurate in patients wi th acute kidney failure, extremes of body mass or the acutely ill. http://[employer] eGFR 111 >=60 mL/min/1.73 m?? [facility] LABORATORY Comment: The eGFR was calculated using the CKD-EP I equation. As with all creatinine based estimates of kidney function, eGFR values calculated with the CKD-EPI equation are not accurate in patients wi th acute kidney failure, extremes of body mass or the acutely ill. http://[employer]/[facility] Specimen Anatomical Collection Method Collection Time Receive d Time (Source) Location / / Volume Laterality Blood specimen 09/29/2019 10:40 9 (specimen) AM EST 10:53 AM EST Resulting Agency Comment Spec In Lab Cuba Martin MD CHEMISTRY ORDERABLES Performing Organization Address City/State/[place] [address] Hepatic Function Panel (09/29/2019 10:40 AM EST) P athologist Signature Total Protein 7.5 6.1 - 8.0 [facility] Albumin 4.0 3.2 - 5.2 [facility] gm/dL [facility] AST 12 0 - 30 [facility] unit/L [facility] ALT 11 0 - 30 [facility] unit/L [facility] Alk Phos 99 35 - 105 [facility] [place] unit/L [facility] LAB[facility] Total 0.3 0.2 - 1.3 [facility] Bilirubin mg/dL [facility] LABORATORY Bili, Direct 0.1 0.0 - 0.3 [facility] JERRY mg/dL [facility] LABORATORY Specimen Anatomical Collection Method Collection Time Receive d Time (Source) Location / / Volume Laterality Blood specimen 09/29/2019 10:40 9 (specimen) AM EST 10:53 AM EST Resulting Agency Comment Spec In Lab Cuba Martin MD CHEMISTRY ORDERABLES Performing Organization Address City/State/[place] [address] (ABNORMAL) Sedimentation rate (09/29/2019 10:40 AM EST) P athologist Signature Sed Rate 24 (H) 0 - 20 [facility] JERRY mm/hr [facility] LABOR[facility]ORY Specimen Anatomical Collection Method Collection Time Receive d Time (Source) Location / / Volume Laterality Blood specimen 09/29/2019 10:40 9 (specimen) AM EST 10:53 AM EST Resulting Agency Comment Spec In Lab Cuba Martin MD HEMATOLOGY ORDERABLES Performing Organization Address City/[facility]/[place] [address] CK (09/29/2019 10:40 AM EST) P athologist Signature CK, Total 57 0 - 160 [facility] JERRY unit/L [facility] LABOR[facility]ORY Specimen Anatomical Collection Method Collection Time Receive d Time (Source) Location / / Volume Laterality Blood specimen 09/29/2019 10:40 9 (specimen) AM EST 10:53 AM EST Resulting Agency Comment Spec In Lab Cuba Martin MD CHEMISTRY ORDERABLES Performing Organization Address City/[facility]/[place] [address] documented in this encounter Visit Diagnoses Diagnosis Positive JANETH (antinuclear antibody) Other and unspecified nonspecific immuno logical findings Pain in both hands Polyarthritis with positive rheumatoid f actor Chronic pain of right knee Primary osteoarthritis of left ankle High risk medication use Encounter for long-term (current) use of other medications Dermatomyositis documented in this encounter Care Teams Beach Attendant Relationship Specialty Start Date End Date Samantha Michelle MD PCP - General 09/14/11 [address] [place] [address] documented as of this encounter
--- OUTSIDE RECORDS SUMMARY | 2022-09-15 01:26 | XMS_ITS | Encounter Summary ---
:1955 Author Organization [facility] [place] [address] Care Team Providers Name Role Phone Samantha Michelle MD Primary Care Provider Encounter Details Date Type Department Care Team Description 11/03/2019 Anesthesia Event Gastroenterology at [facility] Sasha Bryant MD [facility] [place] [address] [facility] aLrry Fajardo MD [facility] [address] [place] [address] [place] [phone] Anesthesia Record Procedure Summary Procedure Name Responsible Anesthesia Start Anesthesia Stop Time Anesthesiologist Time EGD WITH BIOPSY Sasha Bryant MD 11/03/19 1500 11/03/19 16 15 (WRVU 2.49) (N/A Trunk) Events Date Time Event Comment 11/03/2019 1500 AN Verify 1500 Start 1500 An Start Data 1504 An Induction 1506 Anesthesia Ready 1608 an stop data 1615 Recovery or ICU Handoff Patient care was transferred to the destination unit staff after review of the patient's medica l history, current anesthetic/surgi madhuri status and plan, according to the Provider Handoff Checklist. 1615 Stop 11/05/2019 1342 Name Total Propofol 50 mg Propofol INF 1,777.86 mg PHENYLephrine 1,280 mcg lactated ringers infusion 600 mL Agents Name O2 Air N2O O2 Auxiliary Flowmeter 1 Blood No blood administrations on file. Lines, Drains, and Airways Type Details Placement Removal PIV 11/03/19; 1458; metacarpal 11/03/19 1458 by Palma crespo, 11/03/19 1706 by , vein (top of hand), left; NICOL Badillo RN alul-itp-lwaefl catheter system; 22 gauge, 1 in length; Abdirashid Wolf RN; distraction, intradermal injection, tolerated well, appears comfortable; 1; no longer indicated; 11/03/19; 1706 documented in this encounter Social History Tobacco Use Types Packs/Day Years Used Date Former Smoker Cigarettes 0.25 7 Quit: 02/07/19 75 Smokeless Tobacco: Never Used Alcohol Use Standard Drinks/Week Comments No 0 (1 standard drink = 0.6 oz pure alcoho l) Sex Assigned at Date Recorded Female 03/23/2021 8:16 AM EDT documented as of this encounter OR Notes Anesthesia Postprocedure Evaluation - Larry Syed MD - 11/03/2019 5:05 PM EST Department of Anesthesiology Post-procedure Note Patient: Brandi Ruiz Procedure Summary Date: 11/03/19 Room / Location: [facility] ENDO 2 / 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 Patient Location: PACU/[facility] Level of Consciousness: Awake and Alert Pain Management: Satisfactory Analgesia PONV: None Cardiovascular Status: At Baseline Respiratory Status: At Baseline Postoperative Fluid Status: Intravascular EUvolemia Possible Anesthetic Complications: NONE apparent at time of evaluation Final Primary Anesthesia Type: MAC (The anesthetic type performed was the same as planned.) Comments: Anesthesia Preprocedure Evaluation - Larry Syed MD - 11/02/2019 8:19 AM EST Pre-Anesthesia Evaluation for: Brandi Ruiz a 64 y.o. female. Procedure(s): EGD, UPPER GI ENDOSCOPY COLONOSCOPY, DIAGNOSTIC Patient Active Problem List Diagnosis ??? History of basal cell carcinoma ??? SVT (supraventricular tachycardia) ??? Hypothyroid ??? Anemia ??? Hypothyroidism ??? Anxiety Past Medical History: Diagnosis Date ??? Allergy [...] WITH BX performed by DONALD VALIENTE at [facility] ENDOSCOPY ??? PRO UPPER GI ENDOSCOPY, BIOPSY 04/09/2012 EGD WITH BIOPSY performed by DONALD VALIENTE at [facility] ENDOSCOPY ??? STOMACH SURGERY 1974 ruptured ectopic, appendectomy, 1993 choleysectomy ??? UPPER GI ENDOSCOPY, EXAM 04/09/2012 UPPER GI ENDOSCOPY performed by DONALD VALIENTE at [facility] ENDOSCOPY Social History Tobacco Use ??? Smoking status: Former Smoker Packs/day: 0.25 Years: 7.00 Pack years: 1.75 Types: Cigarettes Last attempt to quit: 02/07/1975 Years since quittin.7 ??? Smokeless tobacco: Never Used Substance Use Topics ??? Alcohol use: No Social History Substance and Sexual Activity Drug Use No Allergies Allergen Reactions ??? Ceclor [Cefaclor] Hives ??? Pcn [Penicillins] Anaphylaxis ??? Phenergan [Promethazine] Anaphylaxis ??? Preservative Anaphylaxis Sulfites ??? Sulfite ??? Vancomycin Hives Medications: MAR and/or home medications have been reviewed. Physical Exam: There were no vitals filed for this visit. There is no height or weight on file to calculate BMI. Airway Assessment: Mallampati: II TM distance: >3 FB Neck ROM: full Cardiovascular Assessment: Pulmonary Assessment: Dental Assessment: - normal exam Misc Assessment: IV access: Peripheral line Anesthesia Plan: ASA 2 MAC, with a(n) intravenous induction 64 y/o F here for EGD/colonoscopy for dysphagia and colorectal screening. PMH significant for obesity (141kg), SVT (none recently, also one episode of a-fib in past), OA, hypothyroidism. No [facility] anesthesia records. Plan: MAC, PIV Region - Other Informed Consent: Anesthetic plan and risks discussed with patient. Plan discussed with attending. PAT Clinic Note documented in this encounter Plan of Treatment Upcoming Encounters Date Type Specialty Care Team Description 09/26/2022 Office Visit Dermatology Ambreen Burroughs MD [facility] [address] [place], [place] [address] ([facility]) 10/02/2022 Office Visit Pulmonology Laney Calhoun M D [facility] Pulmonary Medicguido thornton [place], [place] [address] (Wo rk) 11/07/2022 Office Visit Ophthalmology Gifty Bernal MD [facility] [place] [id number] ([facility]) documented as of this encounter Visit Diagnoses Not on filedocumented in this encounter Administered Medications Inactive Administered Medications - up to 3 most recent administrations Medication Order MAR Action Action Date Dose Rate Site lactated ringers infusion New Bag 11/03/2019 3:01 PM EST 100 mL/hr, Intravenous, CONTINUOUS, Starting on Sun11/03/19 at 1500, Until Sun11/03/19 at 1919, Endoscopy (Day of Procedure) PHENYLephrine in NS (PF) (SEN-SYNEPHRINE) Given 11/03/2019 3:59 PM EST 160 mcg 0.8 mg/10 mL (80 mcg/mL) multi-dose injection Syrg PRN, Starting on Sun11/03/19 at 1539, Until Sun11/03/19 at 1615, Anesthesia Intra-op, Routine Given 11/03/2019 3:54 PM EST 160 mcg Given 11/03/2019 3:39 PM EST 160 mcg propofol (DIPRIVAN) 10 mg/mL bolus injection Given 9 3:06 PM EST 50 mg (Anesthesia) PRN, Starting on Sun11/03/19 at 1506, Until Sun11/03/19 at 1615, Anesthesia Intra-op propofol (DIPRIVAN) infusion New Bag 11/03/2019 3:06 PM 225 mcg/kg/min 190.5 mL/hr CONTINUOUS PRN, Starting on EST Sun11/03/19 at 1506, Until Sun11/03/19 at 1615, Anesthesia Intra-op, Routine documented in this encounter Care Teams Carpenter Labor Supervisor Relationship Specialty Start Date End Date Samantha Michelle MD PCP - General 09/14/11 [address] [place] [address] documented as of this encounter
--- OUTSIDE RECORDS SUMMARY | 2022-09-15 01:26 | XMS_ITS | Encounter Summary ---
:1955 Author Organization [facility] [place] [address] Care Team Providers Name Role Phone Samantha Michelle MD Primary Care Provider Encounter Details Date Type Department Care Team Description 11/03/2019 [place] En[place] [facility] [place] Hu, [facility] [place] [address] [facility] [phone] CENTER GASTROENTEROLOGY DEPT. [place], [place] [address] Social History Tobacco Use Types [...] Sign Reading Time Taken Comments Blood Pressure 113/60 11/03/2019 4:50 PM EST Pulse 51 11/03/2019 2:40 PM EST Temperature - - Respiratory Rate 18 11/03/2019 2:40 PM EST Oxygen Saturation 95% 11/03/2019 5:00 PM EST Inhaled Oxygen Concentration - - Weight - - Height - - Body Mass Index - - documented in this encounter Discharge Instructions Discharge Han Diane RN - 11/03/2019 4:18 PM EST Upper GI Endoscopy & Colonoscopy: What to Expect at Home Your Recovery You will be able to go home after your doctor or nurse checks to make sure you are not having any problems. You may have to stay overnight if you had treatment during the test. You may have a sore throat for a day or two after the test. Your doctor will talk to you about when you will need your next colonoscopy. Your doctor can help you decide how often you need to be checked. This will depend on the results of your test and your riskfor colorectal cancer. After the test, you may be bloated or have gas pains. You may need to pass gas. If a biopsy was doneor a polyp was removed, you may have streaks of blood in your stool (feces) for a few days. Problemssuch as heavy rectal bleeding may not occur until several weeks after the test. This isn't common, but it can happen after polyps are removed. This care sheet gives you a general idea about what to expect after the test. How can you care for yourself at home? Activity ??? Rest when you feel tired. ?? You can do your normal activities when it feels okay to do so. Diet ?? Follow your doctor's directions for eating. ?? Unless your doctor has told you not to, drink plenty of fluids. This helps to replace the fluidsthat were lost during the prep. ?? Do not drink alcohol. Medicines ?? Your doctor will tell you if and when you can restart your medicines. He or she will also give you instructions about taking any new medicines. ?? If you take blood thinners, such as warfarin (Coumadin), clopidogrel (Plavix), or aspirin, be sure to talk to your doctor. He or she will tell you if and when to start taking those medicines again.Make sure that you understand exactly what your doctor wants you to do. ?? If polyps were removed or a biopsy was done during the test, your doctor may tell you not to take aspirin or other anti-inflammatory medicines for a few days. These include ibuprofen (Advil, Motrin) and naproxen (Aleve). Other instructions ?? For your safety, do not drive or operate machinery until the medicine wears off and you can think clearly. Your doctor may tell you not to drive or operate machinery until the day after your test. ?? Do not sign legal documents or make major decisions until the medicine wears off and you can think clearly. The anesthesia can make it hard for you to fully understand what you are agreeing to. Additional Information for Sedation Patients For patients who received sedation: ?? You may have received medications before and/or during your procedure which effects your judgement and reaction time. ?? Do not drive, operate machinery, drink alcoholic beverages or make important decisions for 24 hours. ?? Be careful on stairs as you may be unsteady on your feet. ?? You may eat a regular diet as tolerated. ?? Do not smoke if you are alone. ?? IV site: Slight redness or tenderness is normal, you can use a warm compress if you would like. If tenderness and/or redness increase or if foul drainage occurs, please contact your Doctor. Please call [phone] before 8pm Mon-Fri with problems, questions or concerns. If you call after 8pm or on weekends, call the Hospital at [phone] and ask to speak to the [employer] authors motivational and the clarifier operator will contact that person for you. When should you call for help? Call 521 anytime you think you may need emergency care. For example, call if: ?? You passed out (lost consciousness). ?? You pass maroon or bloody stools. ?? You have trouble breathing. Call your doctor now or seek immediate medical care if: ?? You have pain that does not get better after you take pain medicine. ?? You are sick to your stomach or cannot drink fluids. ?? You have new or worse belly pain. ?? You have blood in your stools. ?? You have a fever. ?? You cannot pass stools or gas. ?? Your throat still hurts after a day of two. Watch closely for changes in your health, and be sure to contact your doctor if you have any problems. Where can you learn more? [facility] View your After Visit Summary and more online at [email or web address] If you would like to provide feedback about your hospital experience, please call the Office of Patient and Family Relations at . If you have received this After Visit Summary in error, please immediately return it in person to the department, or notify the [facility] Privacy Office by calling toll free at between the hours of 8AM and 5PM to arrange for our retrieval of the documents at no cost to you. Content Version: 12.2 ?? [phone] [employer]. Care instructions adapted under license by [facility]. If you have questions about a medical condition or this instruction, always ask your healthcare professional. [employer] disclaims any warranty or liability for your use of this information. Patient InstructionsDevin Hu MD - 11/03/2019 5:19 PM EST Please see Recommendations in the Provation procedure report which is documented in the procedural note in E-[facility]. documented in this encounter Medications at Time [...] 0 capsule mouth every morning (before breakfast). gabapentin (NEURONTIN) 300 Take 200 mg by 0 11/0212/05/2021 mg Capsule mouth every evening. valACYclovir (VALTREX) 1 TK 1 T PO TID 0 11/02/20 19 03/25/2020 gram Tablet hydroxychloroquine Take 1 tablet by 60 tablet 3 10/14/2019 11/24/2019 (PLAQUENIL) 200 mg mouth 2 times TabletIndications: daily. Dermatomyositis fish oil-omega-3 fatty Take 2 g by mouth 0 02/06/2020 acids 1,000 mg Capsule daily. TURMERIC ORAL Take by mouth. 0 020 diclofenac (VOLTAREN) 75 mg Take 1 tablet by 60 tablet 3 01/01/2020 Tablet, Delayed Release mouth 2 times (E.C.) daily. betamethasone valerate Apply topically to 45 g 1 08/0511/10/2019 (VALISONE) 0.1 % affected areas on CreamIndications: Irritant the fingertips contact dermatitis, twice daily unspecified trigger including under occlusion at night. HYDROcodone-acetaminophen Take 1 tablet by 0 05/2702/06/2020 (NORCO) 5-325 mg Tablet mouth as needed (Following R TKA). ondansetron (ZOFRAN) 4 mg Take 4 mg by mouth 6 11/24/2019 Tablet as needed. aspirin 81 mg Tablet, Take 81 mg by 0 02/06/2020 Delayed Release (E.C.) mouth daily. triamcinolone (KENALOG) 0.1 Apply to affected 454 g 1 0 05/12/2019 08/02/2021 % OintmentIndications: areas on arms Dermatomyositis twice daily for 10-14 days. Take 5-7 days off and repeat as needed documented as of this encounter H&P Notes Devin Hu MD - 11/03/2019 2:19 PM EST Gastroenterology and Hepatology Pre-Procedure History and Physical Exam Procedure: EGD: Colonoscopy: Indication: Dysphagia and CRC screening. Patient Active Problem List Diagnosis Code ??? Anemia D64.9 ??? Hypothyroidism E03.9 ??? Anxiety F41.9 ??? SVT (supraventricular tachycardia) I47.1 ??? Hypothyroid E03.9 ??? History of basal cell carcinoma Z85.828 EXAM: HEENT: Airway examined, oropharynx clear Mallampati Score: Per anesthesia LUNGS: Clear to auscultation HEART: Regular rate and rhythm, normal S1, S2 ABDOMEN: Normal bowel sounds, soft, non tender, non distended, A/P Proceed with the planned endoscopic procedure. ASA 2 - Patient with mild systemic disease with no functional limitations Sedation Plan: deep Risks and benefits of the procedure explained to the patient. Consent signed. 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 documented in this encounter Plan of Treatment Upcoming Encounters Date Type Specialty Care Team Description 09/26/2022 Office Visit Dermatology Ambreen Burroughs MD [facility] DR SHAYY CASTILLO-DERMAT [place], [place] [address] (Wo rk) 10/02/2022 Office Visit Pulmonology Laney Calhoun M D [facility] Pulmonary [place], [place] [address] (Wo rk) 11/07/2022 Office Visit Ophthalmology Gifty Bernal MD [facility] [address] [place] [address] (Wo rk) documented as of this encounter Procedures Procedure Name Priority Date/Time Associated Comments Diagnosis SPECIMEN TO PATHOLOGY Routine 11/03/2019 4:02 PM Results for this EST procedure are i n the results section. SURGICAL PATHOLOGY Routine 11/03/2019 3:19 PM Res ults for this REPORT EST procedure are i n the results section. 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 UPPER GI ENDOSCOPY Routine 11/03/2019 2:21 PM Res ults for this EST procedure are i n the results section. documented in this encounter Results Specimen to Pathology (11/03/2019 4:02 PM EST) Specimen Anatomical Collection Method Collection Time Receive d Time (Source) Location / / Volume Laterality AP Specimen 11/03/2019 4:02 PM 9 4:02 EST PM EST Narrative [facility] - 11/03/2019 4:02 PM EST Specimen requisition ordered. ??Separate Pathology report to follow Devin Hu MD PATHOLOGY/CYTOLOGY ORDERABLE S Performing Organization Address City/State/[place] [address] [facility] [address] Surgical Pathology Report (11/03/2019 3:19 PM EST) Component Value Ref Test Analysis Performed At [facility] gist Range Method Time Signature Surgical [id number] ? Location: 4T; EA07; A [facility] Report The signing pathologist has (i) examined the relevant preparation(s) for the [facility] specimen(s) and (ii) rendered or confirmed the diagnosis(es) . [facility] . ?Surgic al Pathology DIAGNOSIS Stomach polyps, ??biopsy: Gastric fundic gland polyp(s) (multiple fragments). Electronically signed by: ??Humberto Rodriguez MD Verified: ??11/06/2019 ?Pathologist Performed at: ??-[facility] [place]. [place], [place], [place] CLINICAL INFORMATION Specimen Submitted: A - Gatric polyps bx's Clinical History and Diagnosis: 64-year-old with dysphagia, long-term PPI use, screening col onoscopy SPECIMEN PROCESSING A - Labeled/Fixative: Gastric polyps BX, formalin. Quantity/Size: Three, averaging 0.4 cm. Tissue Description: Soft, pink polypoid tissues. Sections/Processing: Submitted en toto ??in 1 cassette labeled A1. ??sns Specimen (Source) Anatomical Collection Method Collection Time Re ceived Time Location / / Volume Laterality 11/03/2019 3:19 PM EST Devin Hu MD PATHOLOGY/CYTOLOGY ORDERABLE S Performing Organization Address City/State/[place] [address] COLONOSCOPY (11/03/2019 2:21 PM EST) Component Value Ref Test Analysis Performed At [facility] Range Method Time Signature COLONOSCOPY [facility] Endoscopy Procedure Date: 11/03/2019 2:21 PM ? Patient Name: Brandi Ruiz ? N: [id number] ? Date of : 1955 ? Age: 64 ? Order #: [id number] ? Instrument Name: [id number] ? Procedure: ? Colonoscopy Indications: ? Screening for colorectal malignant ? neoplasm Providers: ? Devin Hu MD, Jason Sandhu ? NICOL Harper, Fabian Wright MD: ?Samantha Michelle MD Medicines: ? Propofol per Anesthesia Complications: ? No immediate complications. Procedure: ? Pre-Anesthesia Assessment: ? - Prior to the procedure, a H istory ? and Physical was performed, a nd ? patient medications, allergie s and ? sensitivities were reviewed. The ? patient's tolerance of previo us ? anesthesia was reviewed. ? - The risks and benefits of t he ? procedure and the sedation op tions ? and risks were discussed with the ? patient. All questions were a nswered ? and informed consent was obta ined. ? - ASA Grade Assessment: II - A ? patient with mild systemic di sease. ? - Using IV propofol under the ? supervision of an anesthesiol ogist ? was determined to be medicall y ? necessary for this procedure based on ? patient's history of problems with ? anesthesia. ? The procedure, indications, b enefits, ? risks and alternatives were e xplained ? to the patient. Specifically ? discussed were potential ? complications including, but not ? limited to, bleeding, perfora tion, ? infection, missing a cancer, and ? adverse medication reactions. The ? patient was placed in the lef t ? lateral decubitus position, a nd a ? digital rectal exam was perfo rmed. ? The Colonoscope was inserted in the ? anus and under direct visuali zation, ? advanced to the cecum, identi fied by ? appendiceal orifice and ileoc ecal ? valve. Careful inspection was made as ? the colonoscope was withdrawn . The ? patient tolerated the procedu re well. ? The quality of the bowel prep aration ? was fair. ? Findings: ? The perianal and digital rectal examinations were ? normal. ? The entire examined colon appeared normal though prep ? was only fair. ? Moderate Sedation: ? Not applicable - See Anesthesia documentation Impression: ?- Preparation of the colon was adin r. ? - The entire examined colon i s normal. ? - No specimens collected. Recommendation: ?- Repeat colonoscopy in 7-10 years ? for screening purposes. ? Attending Participation: ? I personally performed the entire procedure. ? Devin Hu MD 11/03/2019 4:19:56 PM This report has been signed electronically. Number of Addenda: 0 Note Initiated On: 11/03/2019 2:21 PM Specimen (Source) Anatomical Collection Method Collection Time Re ceived Time Location / / Volume Laterality 11/03/2019 2:21 PM EST Samantha Michelle MD GENERAL SURGICAL ORDERABLES Performing Organization Address City/State/ZIP Code Phon e Number [facility] UPPER GI ENDOSCOPY (11/03/2019 2:21 PM EST) Component Value Ref Test Analysis Performed At [facility] Method Time Signature UPPER GI [facility] ENDOS[facility] Endoscopy Procedure Date: 11/03/2019 2:21 PM ? Patient Name: Brandi Ruiz ? Date of : 1955 ? Age: 64 ? Order #: [id number] ? Instrument Name: [id number] ? Procedure: ? Upper GI endoscopy Indications: ? Dysphagia, Suspected esophageal ? reflux, dermatomyositis Providers: ? Devin Hu MD, Jason Sandhu ? NICOL Harper, Fabian Wright MD: ?Samantha Michelle MD Medicines: ? Propofol per Anesthesia Complications: ? No immediate complications. Procedure: ? Pre-Anesthesia Assessment: ? - Prior to the procedure, a H istory ? and Physical was performed, a nd ? patient medications, allergie s and ? sensitivities were reviewed. The ? patient's tolerance of previo us ? anesthesia was reviewed. ? - The risks and benefits of t he ? procedure and the sedation op tions ? and risks were discussed with the ? patient. All questions were a nswered ? and informed consent was obta ined. ? - ASA Grade Assessment: II - A ? patient with mild systemic di sease. ? - Using IV propofol under the ? supervision of an anesthesiol ogist ? was determined to be medicall y ? necessary for this procedure based on ? patient's history of problems with ? anesthesia. ? The procedure, indications, b enefits, ? risks and alternatives were e xplained ? to the patient. Specifically ? discussed were potential ? complications including, but not ? limited to, bleeding, perfora tion, ? infection, missing a cancer, and ? adverse medication reactions. The ? Endoscope was introduced thro ugh the ? mouth, and advanced to the se cond ? part of duodenum. The patient ? tolerated the procedure well. The ? patient tolerated the procedu re well. ? Findings: ? The esophagus was normal. ? The Z-line was found 39 cm from the incisors. ? Multiple sessile polyps were found in the gastric ? fundus and in the gastric body (fundic gland type). ? Biopsies were taken from a few with a cold forceps ? for histology. ? Otherwise normal stomach including retroflex view of ? cardia and fundus. ? The examined duodenum was normal. ? Moderate Sedation: ? Not applicable - See Anesthesia documentation Impression: ?- Normal esophagus. ? - Multiple fundic gland gastr ic ? polyps. Biopsied. ? - Normal examined duodenum. Recommendation: ?- Await pathology results. ? - Observe patient's clinical course. ? - Consider esophageal manomet ry if ? dysphagia persists. ? Attending Participation: ? I personally performed the entire procedure. ? Devin Hu MD 11/03/2019 3:24:30 PM This report has been signed electronically. Number of Addenda: 0 Note Initiated On: 11/03/2019 2:21 PM Specimen (Source) Anatomical Collection Method Collection Time Re ceived Time Location / / Volume Laterality 11/03/2019 2:21 PM EST Samantha Michelle MD GENERAL SURGICAL ORDERABLES Performing Organization Address City/State/ZIP Code Phon e Number [facility] documented in this encounter Visit Diagnoses Not on filedocumented in this encounter Administered Medications Inactive Administered Medications - up to 3 most recent administrations Medication Order MAR Action Action Date Dose Rate Site lactated ringers infusion New Bag 11/03/2019 3:01 PM EST 100 mL/hr, Intravenous, CONTINUOUS, Starting on Sun11/03/19 at 1500, Until Sun11/03/19 at 1919, Endoscopy (Day of Procedure) documented in this encounter Active and Recently Administered Medications Times are shown in EST. Continuous Medication Order 11/01/2019 11/02/2019 11/03/2019 lactated ringers infusion 1501 ( New Bag - Provider: Lucila Saldivar CRNA)1607 (Anesthesia Volume Adjustment - Provider: Lucila Saldivar CRNA) 100 mL/hr, at 100 mL/hr, Intravenous, CO NTINUOUS, Starting Sun11/03/19 at 1500, Until Sun11/03/19 at 1919, Endo (Day of Procedure) documented in this encounter Care Teams Depot Agent Relationship Specialty Start Date End Date Samantha Michelle MD PCP - General 09/14/11 [address] [place] [address] documented as of this encounter
--- OUTSIDE RECORDS SUMMARY | 2022-09-15 01:26 | XMS_ITS | Encounter Summary ---
:1955 Author Organization [place] [place] [address] Care Team Providers Name Role Phone Samantha Michelle MD Primary Care Provider Encounter Details Date Type Department Care Team Description 11/03/2019 Surgery [place]ology at [facility] Devin Hu, EGD WITH BIOPSY ([facility] Jame norwood MD 2.49) [place] [address] [facility] [phone] GASTROENTEROLOGY DEPT. [place], [place] [address] Social History Tobacco Use Types [...] Sign Reading Time Taken Comments Blood Pressure 123/71 11/03/2019 2:40 PM EST Pulse 51 11/03/2019 2:40 PM EST Temperature - - Respiratory Rate 18 11/03/2019 2:40 PM EST Oxygen Saturation 99% 11/03/2019 2:40 PM EST Inhaled Oxygen Concentration - - [...] occurs, please contact your Doctor. Please call [phone] before 8pm Mon-Fri with problems, questions or concerns. If you call after 8pm or on weekends, call the Hospital at [phone] and ask to speak to the [employer] Professor sand control worker and the tubing machine operator will contact that person for you. When should you call for help? Call 911 anytime you think you may need emergency [...] any problems. Where can you learn more? [facility] View your After Visit Summary and more online at [email or web address] If you would like to provide feedback about your hospital experience, please call the Office of Patient and Family Relations at . If you have received this After Visit Summary in error, please immediately return it in person to the department, or notify the [facility] Privacy Office by calling toll free at between the hours of 8AM and 5PM to arrange for our retrieval of the documents at no cost to you. Content Version: 12.2 ?? 2114-1512 [employer]. Care instructions adapted under license by [facility]. If you have questions about a medical condition or this instruction, always ask your healthcare professional. [employer] disclaims any warranty or liability for your use of this information. Patient InstructionsGoDevin garay MD - 11/03/2019 5:19 PM EST Please [...] Hu MD - 11/03/2019 5:19 PM EST [facility] Operative Note Patient Name: Brandi Ruiz : [id number] MR#: [id number] Case Date: 11/03/2019 Surgeon: Surgeon(s) and Role: * Devin Hu MD - Primary Preoperative diagnosis: dysphagia with alf use of PPI and NSAIDs CRC screening [...] [facility] DR SHAYY CASTILLO-DERMAT [place], [place] [address] ([facility]) 10/02/2022 Office Visit Pulmonology Laney Calhoun M D [facility] Pulmonary Medicguido thornton [place], [place] [address] ( rk) 11/07/2022 Office Visit Ophthalmology Gifty Bernal MD [facility] [place], [place] [address] ( rk) documented as of this encounter Procedures [...] PM 9 4:02 EST PM EST Narrative [facility] - 11/03/2019 4:02 PM EST Specimen requisition ordered. ??Separate Pathology report to follow Devin Hu MD PATHOLOGY/CYTOLOGY ORDERABLE S Performing Organization Address City/State/[place] [address] [facility] Surgical Pathology Report (11/03/2019 3:19 PM EST) Component Value Ref Test Analysis Performed At [facility] gist Range Method Time Signature Surgical [id number] ? Location: 4T; EA07; A [facility] Report The signing pathologist has (i) examined the relevant preparation(s) for the MEMORIAL specimen(s) and (ii) rendered or confirmed the diagnosis(es) . HOSPITAL LABORATORY . ?Surgic al Pathology DIAGNOSIS Stomach polyps, ??biopsy: Gastric fundic gland polyp(s) (multiple fragments). Electronically signed by: ??Humberto Rodriguez MD Verified: ??11/06/2019 ?Pathologist Performed at: ??-[facility] Dept. of Pathology, [place], [place] CLINICAL INFORMATION Specimen Submitted: A - [...] MD PATHOLOGY/CYTOLOGY ORDERABLE S Performing Organization Address [facility]/State/[place] [address] COLONOSCOPY (11/03/2019 2:21 PM EST) Component Value Ref Test Analysis Performed At [facility] Range Method Time Signature COLONOSCOPY [facility] Endoscopy Procedure Date: 11/03/2019 2:21 PM ? Patient Name: Brandi Ruiz ? N: [id number] ? Date of : 1955 ? Age: 64 ? Order #: [id number] ? Instrument Name: [id number] ? Procedure: ? Colonoscopy Indications: ? Screening [...] Component Value Ref Test Analysis Performed At [facility] Range Method Time Signature UPPER GI [facility] ENDOSCOPY Endoscopy Procedure Date: 11/03/2019 2:21 PM ? Patient Name: Brandi Ruiz ? Date of : 1955 ? Age: 64 ? Order #: [id number] ? Instrument Name: [id number] ? Procedure: ? Upper GI endoscopy Indications: ? Dysphagia, Suspected esophageal ? reflux, dermatomyositis Providers: ? Devin Hu MD, Jason Sandhu ? Leroy, RN, Fabian Recinos Referring MD: ?Samantha Michelle MD Medicines: ? Propofol [...] on Sun11/03/19 at 1500, Until Sun11/03/19 at 191, Endoscopy (Day of Procedure) documented in this encounter Active and Recently Administered Medications Times are shown in EST. Continuous Medication Order 11/01/2019 11/02/2019 11/03/2019 lactated ringers infusion 1501 ( New Bag - Provider: Lucila Saldivar PLANNER INTERN)1607 (Anesthesia Volume Adjustment - Provider: Lucila Saldivar CRNA) 100 mL/hr, at 100 mL/hr, Intravenous, CO NTINUOUS, Starting Sun11/03/19 at 1500, Until Sun11/03/19 at 1919, Endo (Day of Procedure) documented in this encounter Care Teams Digital Music Instructor Relationship Specialty Start Date End Date Samantha Michelle MD PCP - General 09/14/11 [address] [place] [address] documented as of this encounter
--- OUTSIDE RECORDS SUMMARY | 2022-09-15 01:26 | XMS_ITS | Encounter Summary ---
:1955 Author Organization [facility] [place] [address] Care Team Providers Name Role Phone Samantha Michelle MD Primary Care Provider Reason for Referral Consultation (Routine) - Closed Specialty Diagnoses / Procedures Referred By Contact Refer red To Contact Plastic Surgery Diagnoses Positive RUBA (antinuclear antibody) Hand weakness Cuba Martin MD [facility] Plastic Surg [address] [facility] [place] [address] [place] [address] Phone: Referral ID Status Reason Start Date Expiration Date Visits V isits Requested Authorized [id number] Closed Consult, 02/06/2020 02/05/2021 1 1 Test & Treat Reason for Visit Reason Comments Follow-up Encounter Details Date Type Department Care Team Description 02/06/2020 Office Visit Rheumatology at [facility] Cuba Martin, Positive RUBA (antinuclear an tibody); [facility] Polyarthritis with positive rheumatoid f actor; [facility] Pain in both hands; [place], [place] Center Hand weakness; [phone] [place], [place] Dermatomyositis [phone] [id number] Social History Tobacco Use Types Packs/Day Years [...] Sign Reading Time Taken Comments Blood Pressure 130/56 02/06/2020 3:25 PM EDT Pulse 80 02/06/2020 3:25 PM EDT Temperature - - Respiratory Rate 20 02/06/2020 3:25 PM EDT Oxygen Saturation 98% 02/06/2020 3:25 PM EDT Inhaled Oxygen Concentration - - Weight 146.8 kg (323 lb 9.6 oz) 02/06/2020 3:25 PM EDT Height 175.9 cm (5' 9.25) 02/06/2020 3:25 PM EDT Body Mass Index 47.44 02/06/2020 3:25 PM EDT documented in this encounter Progress Notes Cuba Martin MD - 02/06/2020 3:30 PM EDT Rheumatology Follow up Note RHeum HX History of steatosis grade 3 and fibrosis grade 1 Ruba 1:160, CRp 3 (WNL.o3), ESR 37 CRPrepear RUBA WNL MPO, DE-3, PE,-C ANCA double-stranded DNA CCP PEE within normal limits RF elevated to 17 CRP 29, CKs WNL Myositis antibody panel anti--LORI 1, IgG p week positive at 32 She is not a candidate for methotrexate due to her history of steatosis Aviod LIVER toxic rheum Meds Recent news is possibly ill Interval Hx Brandi Ruiz is a 64 y.o. female who presents today for follow-up No recent rashes. No weakness inthe proximal upper extremity her lower extr and weakness has improved since the knee replacement andthis is not progressed. No swelling warmth or redness of the joints Hx of CTSw/ surgery rpeorting increased weakness in the hands No morning stiffness No SOB Did not get good releif with turmeric ROS: General (-)fevers, (-)chills, (-)night sweats HEENT (-)head trauma, (-)vision change, (-)tinnitus, (-)epistaxis, (-)sore throat, (-)bleeding gums,(-)oral ulcers, (-)dry eyes, (-)dry mouth, (- )dysphagia, (-)GERD, (-)photo sensitivity, (-)Hair loss, (-)vertigo CVS (-)chest pain, (-)palpitations, (-)pedal edema, (-)PND, (-)orthopnea. Pulm (-)shortness of breath, (-)BABIN, (-)wheezes, (-)cough, (-)pleuritic pain GI (-)N/V, (-)abdominal pain, (-)emesis, (-)hematemesis, (-)hematochezia, (- )change in appetite (-)hematuria, (-)dysuria, (-)frequency, (-)nocturia, (-)genital ulcers MS (-)muscle weakness, (-)paralysis, Endo (-)thyroid disorders, (-)diabetes, (-)temperature intolerance. Neuro (-)focal weakness, (-)paresthesias, (-)gait instability. Skin (-)Raynaud's, (-) ulcers Psych (-) mood disorder. Past Medical History: Diagnosis Date ??? Allergy [...] Hypothyroidism 10/28/2012 ??? Mental or behavioral problem 1976 anxiety ??? SVT (supraventricular tachycardia) Patient Active Problem List Diagnosis Date Noted ??? History of bilateral knee replacement 11/10/2019 ??? History of basal cell carcinoma 10/31/2016 ??? SVT (supraventricular tachycardia) ??? Hypothyroid ??? Anemia 10/28/2012 ??? Hypothyroidism 10/28/2012 ??? Anxiety 10/28/2012 Past Surgical History: Procedure Laterality Date ??? JOINT REPLACEMENT 1999 left knee arthroscopy ??? PRO COLONOSCOPY, BIOPSY 04/09/2012 COLONOSCOPY FLEXIBLE, WITH BX performed by DONALD VALIENTE at [facility] ENDOSCOPY ??? PRO COLONOSCOPY, DIAGNOSTIC N/A 11/03/2019 COLONOSCOPY, DIAGNOSTIC performed by Devin Hu MD at [facility] ENDOSCOPY ??? PRO UPPER GI ENDOSCOPY, BIOPSY 04/09/2012 EGD WITH BIOPSY performed by DONALD VALIENTE at [facility] ENDOSCOPY ??? PRO UPPER GI ENDOSCOPY, BIOPSY N/A 11/03/2019 EGD WITH BIOPSY (WRVU 2.49) performed by Devin Hu MD at [facility] ENDOSCOPY ??? STOMACH SURGERY 1974 ruptured ectopic, appendectomy, 1993 choleysectomy ??? UPPER GI ENDOSCOPY, EXAM 04/09/2012 UPPER GI ENDOSCOPY performed by DONALD VALIENTE at [facility] END[facility] Family History Problem Relation Age of Onset ??? Alcohol Use Disorder Father ??? Depression Father ??? Depression Mother Social History Socioeconomic History ??? Marital status: Spouse name: None ??? Number of children: None ??? Years of education: None ??? Highest education level: None Occupational History ??? None Social Needs ??? Financial resource strain: None ??? Food insecurity Worry: None Inability: None ??? Transportation needs Medical: None Non-medical: None Tobacco Use ??? Smoking status: Former Smoker Packs/day: 0.25 Years: 7.00 Pack years: 1.75 Types: Cigarettes Last attempt to quit: 02/07/1975 Years since quittin.0 ??? Smokeless tobacco: Never Used Substance and Sexual Activity ??? Alcohol use: No ??? Drug use: No ??? Sexual activity: None Lifestyle ??? Physical activity Days per week: None Minutes per session: None ??? Stress: None Relationships ??? Social connections Talks on phone: None Gets together: None Attends buddhism service: None Active member of club or organization: None Attends meetings of clubs or organizations: None Relationship status: None ??? Intimate partner violence Fear of current or ex partner: None [...] 2 times daily. 60 tablet 3 ??? hydroxychloroquine (PLAQUENIL) 200 mg Tablet Take 1 tablet by mouth 2 times daily. 60 tablet 3 ??? gabapentin (NEURONTIN) 300 mg Capsule TK 1 C PO QD X 1 DAY THEN 1 C BID X 1 DAY THEN 1 C TID THEREAFTER ??? valACYclovir (VALTREX) 1 gram Tablet TK 1 T PO TID ??? polyethylene glycol (MIRALAX) 17 gram Powder [...] by mouth every morning (before breakfast). ??? fish oil-omega-3 fatty acids 1,000 mg Capsule Take 2 g by mouth daily. ??? TURMERIC ORAL Take by mouth. ??? HYDROcodone-acetaminophen (NORCO) 5-325 mg Tablet Take 1 tablet by mouth as needed (Following R TKA). 0 ??? aspirin 81 mg Tablet, Delayed Release (E.C.) Take 81 mg by mouth daily. No current facility-administered medications for this visit. Current Outpatient Medications on File Prior to Visit Medication Sig Dispense Refill ??? diclofenac EC (Voltaren) 75 mg Tablet, Delayed Release (E.C.) Take 1 tablet by mouth 2 times daily. 60 tablet 3 ??? hydroxychloroquine (PLAQUENIL) 200 mg Tablet Take 1 tablet by mouth 2 times daily. 60 tablet 3 ??? gabapentin (NEURONTIN) 300 mg Capsule TK 1 C PO QD X 1 DAY THEN 1 C BID X 1 DAY THEN 1 C TID THEREAFTER ??? valACYclovir (VALTREX) 1 gram Tablet TK 1 T PO TID ??? polyethylene glycol (MIRALAX) 17 gram Powder [...] by mouth every morning (before breakfast). ??? fish oil-omega-3 fatty acids 1,000 mg Capsule Take 2 g by mouth daily. ??? TURMERIC ORAL Take by mouth. ??? HYDROcodone-acetaminophen (NORCO) 5-325 mg Tablet Take 1 tablet by mouth as needed (Following R TKA). 0 ??? aspirin 81 mg Tablet, Delayed Release (E.C.) Take 81 mg by mouth daily. No current facility-administered medications on file prior to visit. Allergies Allergen Reactions ??? Ceclor [Cefaclor] Hives ??? Pcn [Penicillins] Anaphylaxis ??? Phenergan [Promethazine] Anaphylaxis ??? Preservative Anaphylaxis Sulfites ??? Sulfite ??? Vancomycin Hives Physical Exam: BP 130/56 Pulse 80 Resp 20 Ht 175.9 cm (5' 9.25) Wt (!) 146.8 kg (323 lb 9.6 oz) SpO2 98% BMI 47.44 kg/m?? General: NAD, high BMI HEENT: Mucous membranes are moist, Whitish area left bucal mucosal appears to be healed, temporal artery non-palpable, Neck: full range of motion, strength wnl Cardiovascular: RR, Lungs: Clear to auscultation bilaterally Abdomen: Soft, non tender, non distended, + bowel sounds, no hepatosplenomegaly. Neuro: Alert and oriented x3. . -Strength 5/5 throughout, UE and LE, mild hand weakness Skin: (-)ulcers, patches of erythem rash has improved , no guuttron papules, holster sign, v siging. Vascular: Pulses are equal in all extremities MSK Back: Non tender over the spine and costovertebral angles bilaterally. Extremities Shoulders: FROM, Elbows:FROM, (-)pain, (-)nodules medial epicondyle pain possibly some bursitis no visualized todya Wrists: FROM, no swelling, non-tender Hands: no [...] presents today follow up amyopathic dermatomyositis - IgG SAEantibody - presented with polyarthralgia, myalgia, dysphagia, and photosensitive rash over the summer with right knee pain. Overall she is doing better in regards to her fatigue joint pains or arthralgia. She has no weakness on exam. Seeing pulmonary in 2 weeks for ILD eval- hx of abnl CT Orders Placed This Encounter Procedures ??? CRP, acute inflammation ??? Comprehensive metabolic panel (non-fasting) ??? CBC (with Diff) ??? Sedimentation rate ??? CK ??? Referral to Plastic Surgery documented in this encounter Plan of Treatment Upcoming Encounters Date Type Specialty Care Team Description 09/26/2022 Office Visit Dermatology Ambreen Burroughs MD [facility] DR SHAYY CASTILLO-DERMAT [place], [place] [address] (Wo rk) 10/02/2022 Office Visit Pulmonology Laney Calhoun M D [facility] er Pulmonary Medicguido thornton [place], [place] [address] (Wo rk) 11/07/2022 Office Visit Ophthalmology Gifty Bernal MD [facility] [place], [place] [address] (Wo rk) Scheduled Referrals Name Type Priority Associated Diagnoses Order S chedule Referral to Outpatient Referral Routine Positive RUBA Ordered: Plastic Surgery (antinuclear 02/06/2020 antibody) Hand weakness documented as of this encounter Results CK (02/11/2020 9:30 AM EDT) athologist Signature CK, Total 48 0 - 160 [facility] Specimen Anatomical Collection Method Collection Time Receive d Time (Source) Location / / Volume Laterality Blood specimen 02/11/2020 9:30 AM 020 9:35 (specimen) EDT AM EDT Resulting Agency Comment Spec In Lab Cuba Martin MD CHEMISTRY ORDERABLES Performing Organization Address City/State/ZIP [place] [address] documented in this encounter Visit Diagnoses Diagnosis Positive RUBA (antinuclear antibody) Other and unspecified nonspecific immuno logical findings Polyarthritis with positive rheumatoid f actor Pain in both hands Hand weakness Other musculoskeletal symptoms referable to limbs Dermatomyositis documented in this encounter Care Teams Voting Machine Mechanic Relationship Specialty Start Date End Date Samantha Michelle MD PCP - General 09/14/11 [address] [place] [address] documented as of this encounter
--- OUTSIDE RECORDS SUMMARY | 2022-09-15 01:26 | XMS_ITS | Encounter Summary ---
:1955 Author Organization [facility] [place] [address] Care Team Providers Name Role Phone Samantha Michelle MD Primary Care Provider Reason for Visit Reason Comments Right Knee Pain R TKA DOS 06/04/19 Trasfer of care Consultation (Routine) - Closed Specialty Diagnoses / Procedures Referred By Contact Refer red To Contact Orthopaedics Diagnoses RIGHT KNEE PAIN DOS TKA 06/04/19-TRANSFER OF CARE Agustín Rosas MD [facility] [address] [address] [place] [address] Referral ID Status Reason Start Date Expiration Date Visits V isits Requested Authorized [id number] Closed Consult, 10/01/2019 09/30/2020 1 1 Test & Treat Encounter Details Date Type Department Care Team Description 11/10/2019 Office Visit Orthopaedics at [facility] Darnell Rodriguez History of bilateral [facility] [place] [address] [facility] [phone] ORTHOPAEDIC SURGERY [place], [place] [address] Social History Tobacco Use Types [...] Sign Reading Time Taken Comments Blood Pressure 134/59 11/10/2019 9:13 AM EST Pulse 75 11/10/2019 9:13 AM EST Temperature - - Respiratory Rate - - Oxygen Saturation - - Inhaled Oxygen Concentration - - Weight 146.9 kg (323 lb 14.4 oz) 11/10/2019 9:13 AM EST weighed Height 175.9 cm (5' 9.25) 11/10/2019 9:13 AM EST verba l Body Mass Index 47.48 11/10/2019 9:13 AM EST documented in this encounter Progress Notes Darnell Rodriguez MD - 11/10/2019 9:40 AM EST Images from the original note were not included. Department of Orthopaedics Division of Adult Joint Reconstructive Surgery CHIEF COMPLAINT: Chief Complaint Patient presents with ??? Right Knee Pain R TKA DOS 06/04/19 [facility] ARTHROPLASTY HISTORY/PREVIOUS KNEE SURGERY: 1. Left TKA 08/2012 Dr. Schwab 2 Right TKA 05/2019 Dr. Schwab Brandi Ruiz was referred from Agustín Rosas MD [address] [place] [address] I.D.: Brandi Ruiz is a 64 y.o. year old female being seen today to discuss her right knee. Her history and physical exam were reviewed in detail. R TKA about 5 months ago. Continues to swell. Duke a pop while standing with a valgus oriented knee. Saw Dr. Flannery who thought she needed a larger poly and was referred to me. No F/C. No wound issues. Knee does not feel unstable. Knee clicks. Takes Diclofenac for global joint pain She has not had brace treatment: Ms. Ruiz denies fevers/chills/headache/chest pain/shortness of breath/abdominal pain/nausea or vomiting/weight changes She does not endorse a history of DVT/PE or clotting disorder. QUESTIONNAIRE RESPONSES: General Health, Prior Treatments, PreExisting Condition, Health Habits, About You 11/09/2019 PROMIS-10 General Health Good PROMIS-10 Quality of Life Good PROMIS-10 Physical Health Good PROMIS-10 Mental Health Very Good PROMIS-10 Social Activity Very Good PROMIS-10 Everyday Activities Completely PROMIS-10 Pain 5 PROMIS-10 Fatigue Moderate PROMIS-10 Social Roles Very Good PROMIS-10 Anxious or Depressed Rarely PROMIS PHYSICAL SCORE (range 16-68) 44.9 PROMIS MENTAL SCORE (range 21-68) 50.8 Treatments Tried Regular exercise, Heat and ice therapy, Orthotics, Physical therapy, Medicines applied on the skin (topical), Oral natural supplements (e.g chondroitin and glucosamine), Acetaminophen (e.g. Tylenol), Prescribed anti- inflammatory drugs, Prior surgery for this problem Prior Surgery 06-04-19 [facility] KOOS JR Scores 76.33 TKA Grade 4 Alzheimers or dementia No Cirrohosis or liver disease No HIV/AIDS No Pain in more than one joint in legs No Back or neck pain No Heart attack No Heart failure No Unclog/bypass leg arteries No Stroke, blood clot, TIA No Asthma No Emphysema, chronic bronchities, or COPD No Stomach ulcers/peptic ulcer disease Yes Condition diagnosed by endoscopy Yes Diabetes No Poor kidney function No Rheumatic condtions Yes Take medications for rheumatic conditions Yes Cancer Yes Cancer spread No Leukemia or polycythemia vera No Lymphoma No Weight (lbs) 310 Height (feet) 5 feet Height (Inches) 9 BMI 45.77 (Obese) Ever used tobacco products Yes Tobacco frequency Never WHO - Tobacco Advice 0 (You are at low risk of health and other problems from your current pattern of use.) Ever used alcoholic beverages Yes Alcohol frequency Never WHO - Alcohol Advice 0 (You are at low risk of health and other problems from your current pattern of use.) Live Alone Yes Marital situation Schooling More than 4 - year college Combined Household Income $75,000 or more # People Supported 3 Thai, , No, not Thai// Race White Health Literacy Extremely Currently working Yes Current job situation Full-time [facility] Response 11/09/2019 KOOS JR Scores 76.33 Spine [facility] Response 11/09/2019 KOOS JR Scores 76.33 ALLERGIES Allergies Allergen Reactions ??? Ceclor [Cefaclor] Hives ??? Pcn [Penicillins] Anaphylaxis ??? Phenergan [Promethazine] Anaphylaxis ??? Preservative Anaphylaxis Sulfites ??? Sulfite ??? Vancomycin Hives Allergies to metals: none. SOCIAL HISTORY: reports that she quit smoking about 44 years ago. Her smoking use included cigarettes. She has a 1.75 pack-year smoking history. She has never used smokeless tobacco. She reports that she does not drink alcohol or use drugs. 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 SIGNIFICANT MEDICAL COMORBIDITIES: Patient Active Problem List Diagnosis Code ??? Anemia D64.9 ??? Hypothyroidism E03.9 ??? Anxiety F41.9 ??? SVT (supraventricular tachycardia) I47.1 ??? Hypothyroid E03.9 ??? History of basal cell carcinoma Z85.828 VITALS: BP Readings from Last 1 Encounters: 11/10/19 134/59 Pulse Readings from Last 1 Encounters: 11/10/19 75 Height: 175.9 cm (5' 9.25)(verbal) Weight: (!) 146.9 kg (323 lb 14.4 oz)(weighed) Body mass index is 47.48 kg/m??. PHYSICAL EXAM: Constitution: Brandi Ruiz sits in the clinic today alert, appears stated age and cooperative. Sheis alert and oriented. I have made the following determinations: Knee Exam: Right Prior surgery on this joint: Yes Knee ROM: Extension:0 Flexion: 95 Alignment: 0-4 degrees Varus Stability: A/P Translation <5mm. Varus (lateral stability) <5mm Valgus (medial stability) 5-10mm Extension La degrees or less Patella Tracking: Normal Skin Integrity: Normal Pulses Palpable: Right PT: Yes Right DP:Yes Motor/Sensory: Distal Motor: Normal Distal Sensory: Normal and has numbness on leg distal to incision down to lateral leg Quadriceps Strength: 5 Knee Effusion: 1+ Ecchymosis: none Patella: Patellar apprehension test: negative Patellar compression test: negative Tenderness: None IMAGING: Review of x-rays from an outside institution demonstrate what appear to be a well-positioned total knee arthroplasty with no evidence of periprosthetic complication. There is some cement in the lateralgutter but I see no evidence of prosthetic failure. ASSESSMENT AND PLAN:Ms. Ruiz is a 64 y.o. year old female status post right total knee replacementby Dr. Olsen from [facility] about 5 months ago. She is also status post left total knee replacement as well but the same surgeon at the same institution. She is been happy with her left knee. Her right knee she says she was getting up and had a valgus stress and felt a mild pop. She does have some laxity of her MCL but this is not too dissimilar to her contralateral side. Her pain is actuallyimproving and although she feels the occasional click which I reassured her is normal with a knee replacement she finds that overall she is improving. She describes some numbness down her leg which I did outline could be from the infrapatellar branch of the saphenous nerve or could be from her tourniquet and nerve block. At this point I continue to follow it and monitor it without any intervention. Neurovascularly her foot is intact. In any event I do not think she warrants any revision surgery at this juncture. Despite having some laxity of her knee this is not uncommon and I continue to follow her clinically. If a year from now she is struggling with instability I be happy to see her and we can consider revision surgery at that point. All questions were answered. DARNELL RODRIGUEZ MD documented in this encounter Plan of Treatment Upcoming Encounters Date Type Specialty Care Team Description 09/26/2022 Office Visit Dermatology Ambreen Burroughs MD [facility] DR SHAYY [place], [place] [address] ([place] ) 10/02/2022 Office Visit Pulmonology Laney Calhoun M [facility] [place] [place], [place] [address] ([place] ) 11/07/2022 Office Visit Ophthalmology Gifty Bernal MD [facility] [place] [address] ([facility]) documented as of this encounter Visit Diagnoses Diagnosis History of bilateral knee replacement documented in this encounter Care Teams Phone Banker Relationship Specialty Start Date End Date Samantha Michelle MD PCP - General 10/20/11 [address] [place] [address] documented as of this encounter
--- OUTSIDE RECORDS SUMMARY | 2022-09-15 01:26 | XMS_ITS | Encounter Summary ---
:1955 Author Organization [facility] [place] [address] Care Team Providers Name Role Phone Samantha Michelle MD Primary Care Provider Encounter Details Date Type Department Care Team Description 02/11/2020 Laboratory Lab 3L Bessy Positive JANETH (a ntinuclear antibody); Appointment [facility] Polyarthr itis with positive rheumatoid factor; Hospital Pain in both hands; [facility] Hand weak ness; Drive Mild intermittent [place], [place] [id number] Social History Tobacco Use Types Packs/Day Years [...] [facility] DR SHAYY CASTILLO-DERMAT [place]ER[place], [place] [address] (Wo naif) 10/02/2022 Office Visit Pulmonology Laney Calhoun M D [facility] Pulmonary Medicguido thornton [place], [place] [address] (Ashvin disla) 11/07/2022 Office Visit Ophthalmology Gifty Bernal MD [facility] [address] [place], [place] [address] (Wo rk) documented as of this encounter Procedures Procedure Name Priority Date/Time Associated Diagnosis Comme nts HC C-REACTIVE PROTEIN Routine 02/11/2020 9:30 Positive JANETH Res ults for this AM EDT (antinuclear procedure are i n antibody) the results Polyarthritis with section. positive rheumatoid factor Pain in both lynn ds Hand weakness BILIRUBIN, DIRECT Routine 02/11/2020 9:30 Results for this AM EDT procedure are i n the results section. HC PCH IGG TOTAL Routine 02/11/2020 9:30 Mild intermittent Res ults for this AM EDT asthma, uncomplicated proced ure are in the results section. HC IGE, TOTAL Routine 02/11/2020 9:30 Mild intermittent Result s for this AM EDT asthma, uncomplicated proced ure are in the results section. M PNEUMO IGM AB IFA Routine 02/11/2020 9:30 Resul ts for this AM EDT procedure are i n the results section. SCAN, PERIPHERAL Routine 02/11/2020 9:30 Results for this BLOOD AM EDT procedure are i n the results section. HEMOGRAM Routine 02/11/2020 9:30 Positive JANETH Results for this AM EDT (antinuclear procedure are i n antibody) the results Polyarthritis with section. positive rheumatoid factor Pain in both lynn ds Hand weakness DIFFERENTIAL, Routine 02/11/2020 9:30 Positive JANETH Results for this AUTOMATED AM EDT (antinuclear procedure are i n antibody) the results Polyarthritis with section. positive rheumatoid factor Pain in both lynn ds Hand weakness HC CREATININE Routine 02/11/2020 9:30 Positive JANETH Results for this AM EDT (antinuclear procedure are i n antibody) the results Pain in both lynn ds section. Polyarthritis with positive rheumatoid factor HC PCH MYCOPLASMA Routine 02/11/2020 9:30 Mild intermittent Re sults for this ANTIBODY AM EDT asthma, uncomplicated proced ure are in the results section. HC PCH CHLAMYDIA IGG Routine 02/11/2020 9:30 Mild intermittent Results for this AM EDT asthma, uncomplicated proced ure are in the results section. HC VENIPUNCTURE Routine 02/11/2020 9:30 Positive JANETH Results f or this AM EDT (antinuclear procedure are i n antibody) the results Polyarthritis with section. positive rheumatoid factor Pain in both lynn ds Hand weakness HC CBC,PLT & AUTO Routine 02/11/2020 9:30 Positive JANETH DIFF AM EDT (antinuclear antibody) Polyarthritis with positive rheumatoid factor Pain in both lynn ds Hand weakness HC IGA, SERUM Routine 02/11/2020 9:30 Mild intermittent Result s for this AM EDT asthma, uncomplicated proced ure are in the results section. HC IGM, SERUM Routine 02/11/2020 9:30 Mild intermittent Result s for this AM EDT asthma, uncomplicated proced ure are in the results section. HC IGG, SERUM Routine 02/11/2020 9:30 Mild intermittent Result s for this AM EDT asthma, uncomplicated proced ure are in the results section. HC CREATINE Routine 02/11/2020 9:30 Positive JANETH Results for this PHOSPHOKINASE, SERUM AM EDT (antinuclear procedu re are in antibody) the results Polyarthritis with section. positive rheumatoid factor Pain in both lynn ds Hand weakness COMPREHENSIVE Routine 02/11/2020 9:30 Positive JANETH Results for this METABOLIC PANEL AM EDT (antinuclear procedure ar e in (NON-FASTING) antibody) the results Polyarthritis with section. positive rheumatoid factor Pain in both lynn ds Hand weakness documented in this encounter Results M pneumo IgM Ab IFA (02/11/2020 9:30 AM EDT) Analysis Performed At Patho logist Time Signature M Pneumo IgM Negative Negative [facility] Comment: A negative result does not rule out curr ent Mycoplasma pneumoniae infection as the specimen may have been collected prior to development of detect able antibody levels. Repeat testing in 1-2 weeks if c linically indicated. ADDITIONAL INFORMATIO N M. pneumoniae IgM performed by immunoflu orescence antibody (IFA). Test Performed by: [facility] [address] [id number] Computer Help Desk Representative: Christophe Seymour M.D. Ph. D.; CLIA# [id number] Specimen Anatomical Collection Method Collection Time Receive d Time (Source) Location / / Volume Laterality Blood specimen 02/11/2020 9:30 AM 020 1:29 (specimen) EDT PM EDT Christophe Theodore MD IMMUNOLOGY ORDERABLES Performing Organization Address City/[facility]/ZIP Code Phon e Number [address] Scan, Peripheral Blood (02/11/2020 9:30 AM EDT) [facility] Method Time Signature Plat Estimate Normal [facility] RBC Morphology Abnormal [facility] Hypochromia Slight [facility] Specimen Anatomical Collection Method Collection Time Receive d Time (Source) Location / / Volume Laterality Blood specimen 02/11/2020 9:30 AM 020 9:35 (specimen) EDT AM EDT Resulting Agency Comment Spec In Lab Cuba Martin MD HEMATOLOGY ORDERABLES Performing Organization Address City/[facility]/ZIP Code Phon e Number [address] Bilirubin, Direct (02/11/2020 9:30 AM EDT) P athologist Signature Bili, Direct 0.1 0.0 - 0.3 [facility] mg/dL [facility] Specimen Anatomical Collection Method Collection Time Receive d Time (Source) Location / / Volume Laterality Blood specimen 02/11/2020 9:30 AM 020 9:35 (specimen) EDT AM EDT Resulting Agency Comment Spec In Lab Cuba Martin MD CHEMISTRY ORDERABLES Performing Organization Address City/[facility]/[place] [address] (ABNORMAL) Differential, Automated (02/11/2020 9:30 AM EDT) [facility] in[facility] Method Time Signature Neutrophils % 66.0 % [facility] Neutr Abs (ANC) 6.21 (H) 1.70 - [facility] 6.10 [facility] x10(3)/[facility] LABORATORY Lymphocytes % 23.5 % [facility] Lymphocytes Abs 2.2 0.9 - 3.2 [facility] x10(3)/[facility] LABORATORY Monocytes % 5.2 % [facility] Monocyte Abs 0.5 0.3 - 0.9 [facility] x10(3)/[facility] LABORATORY Eosinophils % 4.0 % [facility] Eosinophils Abs 0.4 0.0 - 0.4 [facility] x10(3)/[facility] LABORATORY Basophils % 0.9 % [facility] Basophils Abs 0.1 0.0 - 0.1 [facility] x10(3)/[facility] LABORATORY Immature Gran % 0.40 % [facility] Comment: Immature granulocytes(IG's)percentage an d absolute count will include metamyelocytes, myelocytes, and promyelo cytes. Blood smears from CBCs yielding IG's will be scanned manually for concor dance. If this scan disagrees with the automated IG or if promyelocytes are not ed, a manual differential will be performed. Kavitha Gran Abs 0.04 0.00 - 0.04 x10(3)/[facility] LAB[facility]ORY Specimen Anatomical Collection Method Collection Time Receive d Time (Source) Location / / Volume Laterality Blood specimen 02/11/2020 9:30 AM 020 9:35 (specimen) EDT AM EDT Resulting Agency Comment Spec In Lab Cuba Martin MD HEMATOLOGY ORDERABLES Performing Organization Address City/State/[place] [address] (ABNORMAL) Hemogram (02/11/2020 9:30 AM EDT) Analysis Performed At Patho logist Time Signature WBC 9.4 4.0 - 9.5 [facility] x10(3)/[facility] LABORATORY RBC 5.13 4.00 - [facility] 5.21 [facility] x10(6)/[facility] LABORATORY Hemoglobin 12.6 11.7 - [facility] 15.5 gm/dL [facility] Hematocrit 42.3 35.7 - [facility] 45.8 % [facility] MCV 82.5 (L) 82.6 - [facility] 94.4 fL [facility] MCH 24.6 (L) 27.1 - [facility] 32.0 pg [facility] MCHC 29.8 (L) 31.7 - [place] 35.0 gm/dL [facility] Platelets 245 145 - 357 [facility] x10(3)/[facility] LABORATORY RDWSD 51.8 (H) 37.0 - [place] EDWARDS 46.0 [facility] LABORATORY RDWCV 17.2 (H) 11.5 - [facility] JERRY 14.1 % [facility] MPV 10.0 7.6 - 12.9 [place] EDWARDS [facility] LABORATORY nRBC % Auto 0.0 % [facility] LABOR[facility] nRBC Abs Auto 0.000 0.000 - [place] JERRY 0.000 [facility] x10(3)/[facility] LABORATORY Specimen Anatomical Collection Method Collection Time Receive d Time (Source) Location / / Volume Laterality Blood specimen 02/11/2020 9:30 AM 020 9:35 (specimen) EDT AM EDT Resulting Agency Comment Spec In Lab Cuba Martin MD HEMATOLOGY ORDERABLES Performing Organization Address City/State/ZIP Code Phon e Number [address] Immunoglobulin E (IgE) (02/11/2020 9:30 AM EDT) athologist Signature IgE 25 <=101 kU/L [facility] Comment: Pediatric age-specific reference ranges are reflected in result ranges. Adult reference ranges: <25 kU/L ??Normal 25-100 kU/L Equivocal >100 kU/L ??Elevated Specimen Anatomical Collection Method Collection Time Receive d Time (Source) Location / / Volume Laterality Blood specimen 02/11/2020 9:30 AM 020 1:29 (specimen) EDT PM EDT Resulting Agency Comment Spec In Lab Christophe Theodore MD IMMUNOLOGY ORDERABLES Performing Organization Address City/State/ZIP Code Phon e Number [address] IgG (02/11/2020 9:30 AM EDT) athologist Signature IgG 1,120 700 - 1,600 [facility]dL [facility] Comment: Pediatric Reference Intervals obtained f rom the Caliper Reference Interval project. [email or web address] [email or web address]/index.html Specimen Anatomical Collection Method Collection Time Receive d Time (Source) Location / / Volume Laterality Blood specimen 02/11/2020 9:30 AM 020 9:53 (specimen) EDT AM EDT Resulting Agency Comment Spec In Lab Christophe Theodore MD IMMUNOLOGY ORDERABLES Performing Organization Address City/State/ZIP Code Phon e Number [place] [id number] IgG Subclasses (02/11/2020 9:30 AM EDT) Component Value Ref Test Analysis Performed At [facility] Range Method Time Signature IgG Subclasses BESSY Test ? Result ? Flag ??Unit ?? RefValue [facility], [facility] ??Total IgG ?1180 ? mg/dL ??767 - 1590 LABORATORY ??IgG 1 ?558 ?mg/dL ??341 - 894 ??IgG 2 ?378 ?mg/dL ??171 - 632 ??IgG 3 ?93.3 ? mg/dL ??18.4 - 106.0 ??IgG 4 ?44.2 ? mg/dL ??2.4 - 121.0 ?Test Performed by: ?[facility] ?[address] [place] [address] ?Computer Help Desk Representative: Christophe Seymour M.D. Ph.D.; IA# [id number] Specimen Anatomical Collection Method Collection Time Receive d Time (Source) Location / / Volume Laterality Blood specimen 02/11/2020 9:30 AM 020 4:14 (specimen) EDT PM EDT Resulting Agency Comment Spec In Lab Christophe Theodore MD IMMUNOLOGY ORDERABLES Performing Organization Address City/[facility]/ZIP Code Phon e Number [address] IgA (02/11/2020 9:30 AM EDT) P athologist Signature IgA 374 70 - 400 [place] CHAOJ[place] mg/dL [facility] Specimen Anatomical Collection Method Collection Time Receive d Time (Source) Location / / Volume Laterality Blood specimen 02/11/2020 9:30 AM 020 9:53 (specimen) EDT AM EDT Resulting Agency Comment Spec In Lab Christophe Theodore MD IMMUNOLOGY ORDERABLES Performing Organization Address City/[facility]/ZIP Code Phon e Number [address] IgM (02/11/2020 9:30 AM EDT) P athologist Signature IgM 71 40 - 230 [place] mg/dL [facility] Specimen Anatomical Collection Method Collection Time Receive d Time (Source) Location / / Volume Laterality Blood specimen 02/11/2020 9:30 AM 020 9:53 (specimen) EDT AM EDT Resulting Agency Comment Spec In Lab Christophe Theodore MD IMMUNOLOGY ORDERABLES Performing Organization Address City/State/[place] [address] (ABNORMAL) Mycoplasma Pneumoniae Ab IgG and IgM (02/11/2020 9:30 AM EDT) [facility] Method Time Signature M pneumo IgG Positive (A) Negative [facility] Comment: Test Performed by: [facility] [address] [facility] [address] [id number] Computer Help Desk Representative: Christophe Seymour M.D. Ph. D.; CLIA# [id number] M pneumo IgM Reactive (A) Negative [facility] Comment: Test Performed by: [facility] [address] [facility] [address] [id number] Computer Help Desk Representative: Christophe Seymour M.D. Ph. D.; CLIA# [id number] M pneumo Ab Interp SEE COMMENTS [facility] Comment: IgM result is NOT diagnostic. Confirmato ry testing by immunofluorescence antibody (IFA) is req uired and has been ordered under test Mycoplasma pneum onia Antibody, IgM by Immunofluorescence Assay (IFA), s lachelle. ADDITIONAL INFORMATIO N This test has been modified from the man ufactsuyapar's instructions. Its performance characteri stics were determined by [facility] in a manner co nsistent with CLIA requirements. This test has not bee n cleared or approved by the U.S. Food and Drug Admin istration. Test Performed by: [facility] [address] [facility] [address] [id number] Computer Help Desk Representative: Christophe Seymour M.D. Ph. D.; CLIA# [id number] Specimen Anatomical Collection Method Collection Time Receive d Time (Source) Location / / Volume Laterality Blood specimen 02/11/2020 9:30 AM 020 4:14 (specimen) EDT PM EDT Resulting Agency Comment Spec In Lab Christophe Theodore MD IMMUNOLOGY ORDERABLES Performing Organization Address City/State/ZIP Code Phon e Number [place] [address] Chlamydia antibodies (02/11/2020 9:30 AM EDT) Component Value Ref Test Analysis Performed At [facility] Range Method Time Signature Chlamydia BESSY Serology Test ? Result ? Flag ??Unit ?? RefValue [facility] Chlamydia [facility] ??C. pneumoniae IgG ?<1:64 ?titer ??<1:64 LABORATORY ??C. pneumoniae IgM ?<1:10 ?titer ??<1:10 ??C. trachomatis IgG ? <1:64 ?titer ??<1:64 ??C. trachomatis IgM ? <1:10 ?titer ??<1:10 ??C. psittaci IgG ?<1:64 ?titer ??<1:64 ??C. psittaci IgM ?<1:10 ?titer ??<1:10 ? ADDITIONAL INFORMATION ------ ?This test was developed and its performance characteri stics ?determined by [facility] in a manner consistent with CLIA ?requirements. This test has not been cleared or approv ed by ?the U.S. Food and Drug Administration. ?Test Performed by: ?[facility] ?[address] [place] [address] ?Computer Help Desk Representative: Christophe Seymour M.D. Ph.D.; CLIA# [id number] Specimen Anatomical Collection Method Collection Time Receive d Time (Source) Location / / Volume Laterality Blood specimen 02/11/2020 9:30 AM 020 4:14 (specimen) EDT PM EDT Resulting Agency Comment Spec In Lab Christophe Theodore MD IMMUNOLOGY ORDERABLES Performing Organization Address City/State/[place] [address] CK (02/11/2020 9:30 AM EDT) P athologist Signature CK, Total 48 0 - 160 [facility] unit/L [facility] Specimen Anatomical Collection Method Collection Time Receive d Time (Source) Location / / Volume Laterality Blood specimen 02/11/2020 9:30 AM 020 9:35 (specimen) EDT AM EDT Resulting Agency Comment Spec In Lab Cuba Martin MD CHEMISTRY ORDERABLES Performing Organization Address City/[facility]/[place] [address] (ABNORMAL) Creatinine (02/11/2020 9:30 AM EDT) Analysis Performed At Patho logist Time Signature Creatinine 0.66 (L) 0.70 - [facility] 1.20 mg/dL [facility] Estimated GFR 94 >=60 [facility] mL/min/1.7 [facility]IAL 3 m?? HOSPITAL LABORATORY Comment: The eGFR was calculated using the CKD-EP I equation. As with all creatinine based estimates of kidney function, eGFR values calculated with the CKD-EPI equation are not accurate in patients wi th acute kidney failure, extremes of body mass or the acutely ill. [email or web address] eGFR 109 >=60 mL/min/1.73 m?? [facility] Comment: The eGFR was calculated using the CKD-EP I equation. As with all creatinine based estimates of kidney function, eGFR values calculated with the CKD-EPI equation are not accurate in patients wi th acute kidney failure, extremes of body mass or the acutely ill. [email or web address] [email or web address] Specimen Anatomical Collection Method Collection Time Receive d Time (Source) Location / / Volume Laterality Blood specimen 02/11/2020 9:30 AM 020 9:35 (specimen) EDT AM EDT Resulting Agency Comment Spec In Lab Cuba Martin MD CHEMISTRY ORDERABLES Performing Organization Address City/[facility]/[place] [address] (ABNORMAL) CRP, acute inflammation (02/11/2020 9:30 AM EDT) P athologist Signature CRP 12.5 (H) <=4.9 mg/L [facility] Specimen Anatomical Collection Method Collection Time Receive d Time (Source) Location / / Volume Laterality Blood specimen 02/11/2020 9:30 AM 020 9:35 (specimen) EDT AM EDT Resulting Agency Comment Spec In Lab Cuba Martin MD CHEMISTRY ORDERABLES Performing Organization Address City/[facility]/[place] [address] (ABNORMAL) Comprehensive metabolic panel (non-fasting) (02/11/2020 9:30 AM EDT) P athologist Signature Glucose Lvl 101 65 - 199 [facility] mg/dL [facility] Comment: Diabetes: >=200 mg/dL plus symp toms BUN 12 8 - 18 mg/dL [facility] Creatinine 0.66 (L) 0.70 - 1.20 mg/dL [facility] Sodium 138 135 - 145 mmol/L [facility] Potassium 4.6 3.5 - 5.0 mmol/L [facility] Comment: Please note: ??Patients with WBC >100,00 0 may have falsely elevated Potassium levels. ??For accurate Potassium quantif ication in these patients send serum separator tube (gold top) for subsequent determinations. ??Contact the Clinical Chemistry Laboratory if there are any qu estions. Chloride 103 98 - 107 mmol/L [facility] CO2 22 22 - 31 mmol/L [facility] Anion Gap 13 5 - 15 mmol/L [facility] Calcium 10.2 8.5 - 10.5 mg/dL [facility] Total Protein 7.5 6.1 - 8.0 gm/dL [facility] Albumin 4.1 3.2 - 5.2 gm/dL [facility] AST 19 0 - 30 unit/L [facility] ALT 14 0 - 30 unit/L [facility] Alk Phos 94 35 - 105 unit/L [facility] Total Bilirubin 0.2 0.2 - 1.3 mg/dL [facility] Estimated GFR 94 >=60 mL/min/1.73 m?? [facility] Comment: The eGFR was calculated using the CKD-EP I equation. As with all creatinine based estimates of kidney function, eGFR values calculated with the CKD-EPI equation are not accurate in patients wi th acute kidney failure, extremes of body mass or the acutely ill. [email or web address] eGFR 109 >=60 mL/min/1.73 m?? [facility] Comment: The eGFR was calculated using the CKD-EP I equation. As with all creatinine based estimates of kidney function, eGFR values calculated with the CKD-EPI equation are not accurate in patients wi th acute kidney failure, extremes of body mass or the acutely ill. [email or web address] Specimen Anatomical Collection Method Collection Time Receive d Time (Source) Location / / Volume Laterality Blood specimen 02/11/2020 9:30 AM 020 9:35 (specimen) EDT AM EDT Resulting Agency Comment Spec In Lab Cuba Martin MD CHEMISTRY ORDERABLES Performing Organization Address City/[facility]/ZIP Code Phon e Number [address] Sedimentation rate (02/11/2020 9:30 AM EDT) P athologist Signature Sed Rate 20 2 - 39 [facility] mm/hr [facility] Comment: Effective November 05, 2019 [...] Martin MD HEMATOLOGY ORDERABLES Performing Organization Address City/[facility] [place] [address] documented in this encounter Visit Diagnoses Diagnosis Positive JANETH (antinuclear antibody) Other and unspecified nonspecific immuno logical findings Polyarthritis with positive rheumatoid f actor Pain in both hands Hand weakness Other musculoskeletal symptoms referable to limbs Mild intermittent asthma, uncomplicated Unspecified asthma documented in this encounter Care Teams Legal Summer Intern Relationship Specialty Start Date End Date Samantha Michelle MD PCP - General 09/14/11 [address] [place] [address] documented as of this encounter
--- OUTSIDE RECORDS SUMMARY | 2022-09-15 01:26 | XMS_ITS | Encounter Summary ---
:1955 Author Organization [facility] [place] [address] Care Team Providers Name Role Phone Samantha Michelle MD Primary Care Provider Encounter Details Date Type Department Care Team Description 08/27/2019 Telephone Pul[place]ology [place] [facility] [place] [address] Social History Tobacco Use Types Packs/Day Years Used Date Former Smoker Cigarettes 0.25 7 Quit: 02/07/19 75 Smokeless Tobacco: Never Used Alcohol Use Standard Drinks/Week Comments No 0 (1 standard drink = 0.6 oz pure alcoho l) Sex Assigned at Date Recorded Female 03/23/2021 8:16 AM EDT documented as of this encounter Miscellaneous Notes Telephone Encounter - Elia Saleem - 08/27/2019 2:24 PM EDT LMOAM X1 to reschedule New patient appointment, PFT's prior. Patient can be booked with any provider, next available. documented in this encounter Plan of Treatment Upcoming Encounters Date Type Specialty Care Team Description 09/26/2022 Office Visit Dermatology Ambreen Burroughs MD [facility] ER DR SHAYY CASTILLO-DERMAT [place], [place] [address] (Wo rk) 10/02/2022 Office Visit Pulmonology Laney Calhoun M D [facility] Pulmonary Medicguido thornton [place], [place] [address] (Wo rk) 11/07/2022 Office Visit Ophthalmology Gifty Bernal MD [facility] [place], [place] [address] (Wo rk) documented as of this encounter Visit Diagnoses Not on filedocumented in this encounter Care Teams Refrigeration Insulator Relationship Specialty Start Date End Date Samantha Michelle MD PCP - General 09/14/11 [address] [place] [address] documented as of this encounter
--- OUTSIDE RECORDS SUMMARY | 2022-09-15 01:26 | XMS_ITS | Encounter Summary ---
:1955 Author Organization [facility] [place] [address] Care Team Providers Name Role Phone Samantha Michelle MD Primary Care Provider Encounter Details Date Type Department Care Team Description 08/04/2019 Office Visit Dermatology at [facility] Savi Herron MD Dermatomyositis [address] [place] [address] [place] [address] [phone] (Wo rk) Social History Tobacco Use Types Packs/Day Years Used Date Former Smoker Cigarettes 0.25 7 Quit: 02/07/19 76 Smokeless Tobacco: Never Used Alcohol Use Standard Drinks/Week Comments No 0 (1 standard drink = 0.6 oz pure alcoho l) Sex Assigned at Date Recorded Female 03/23/2021 8:16 AM EDT documented as of this encounter Progress Notes Savi Herron MD - 08/04/2019 2:00 PM EDT Brandi Ruiz is seen in the dermatology/rheumatology clinic at the request of Dr. Fidel Clifton for dermatomyositis. The patient has been seen by Dr. Clifton as well as Dr. Martin in rheumatology. 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 She was diagnosed with amyopathic dermatomyositis.Her JANETH is positive at 1-160 with a myositis antibody panel with a weakly positive anti-LORI 1 antibody. Her's CK has been normal. Her rheumatoid factor is mildly elevated at 17 with an elevated CRP. The patient's evaluation has included an MRI without contrast of the lower extremities that demonstrated a soft tissue mass in the right vastus lateralis. A contrast MRI was recommended as follow-up and has been ordered by Dr. Martin. She also has slight uptake in the uterus on a PET scan and is scheduled for a transvaginal ultrasound as well as a gynecologic opinion regarding the abnormality. CAT scan of chest showed old granulomatous disease but no interstitial lung disease. Dr. Martin did refer herto pulmonary and for pulmonary function tests which have not yet been done. She has some dysphasia with episodes of diaphoresis and nausea associated with presyncope awaking her at night. She has an appointment to see gastroenterology for this. Her biggest problem however is right knee pain. She had a right knee replacement 2 months ago or so.The knee remains warm with a large effusion and pain. It is not acting at all like her left total knee replacement done in the past. In addition her CRP went up after the procedure. Outside of her right knee she also has pain in both wrists and the left ankle. She denies weakness. Her dermatomyositis rash has improved on hydroxychloroquine which she is taking for the past 3 months. It is still present but definitely reduced on the face and chest. She has a new rash on her palms for the past month. On physical exam the patient looks well. She is articulate and conversant in medical lingo. Her skinis more fully described in Dr. Burroughs's note but includes an eczematous rash on the hands as well asan erythematous eruption on on the arms. Her right knee is warm and swollen. The incision is violaceous but complete and without drainage. There is tenderness along the collateral ligaments laterally. She has good range of motion in the wrists. There is tenderness over the lateral aspect of the ankle and pain with subtalar motion. There is pain laterally over the right hip, but there is similar pain on the left as well. ROM of the hip is probably normal (limited by pain in her knee). A discussion between the dermatology and rheumatology team ensued. We would agree with continuing her with hydroxychloroquine for her rash. She will continue to use topicals but we will make a change to them. We are concerned about her right knee pain and the presence of an elevated CRP. We recommended repeating this lab. Will repeat her CRP today. The patient was referred to this combined clinic to reduce the number of trips that she made from [facility]. We left it to the patient whether she would follow-up with us or with her establishedrheumatologist. Addendum: The CRP is now down to 18 which makes as much happier in terms of ruling out infection in her right knee. Recent Results (from the past 24 hour(s)) CRP, acute inflammation Result Value Ref Range CRP 18.4 (H) <=4.9 mg/L Sedimentation rate Result Value Ref Range Sed Rate 29 (H) 0 - 20 mm/hr documented in this encounter Plan of Treatment Upcoming Encounters Date Type Specialty Care Team Description 09/26/2022 Office Visit Dermatology Ambreen Burroughs MD [facility] [address]-DERMAT [place], [place] [address] (Wo rk) 10/02/2022 Office Visit Pulmonology Laney Calhoun M D [facility] Pulmonary Medicguido thornton [place], [place] [address] (Wo rk) 11/07/2022 Office Visit Ophthalmology Gifty Bernal MD [facility] [address] [place], [place] [address] (Wo rk) documented as of this encounter Visit Diagnoses Diagnosis Dermatomyositis documented in this encounter Care Teams Continuous Linter Drier Operator Relationship Specialty Start Date End Date Samantha Michelle MD PCP - General 09/14/11 [address] [place] [address] documented as of this encounter
--- OUTSIDE RECORDS SUMMARY | 2022-09-15 01:26 | XMS_ITS | Encounter Summary ---
:1955 Author Organization [facility] Address [address] [facility] [place] [address] Care Team Providers Name Role Phone Samantha Michelle MD Primary Care Provider Encounter Details Date Type Department Care Team Description 10/13/2019 Hospital Encounter XRay [place] [facility] [place] Dumont Left ankle pain, [address] Ermias MD unspecified [place], [place] [facility] chronic[facility] [id number] Rudy [phone] [place] [address] Social History Tobacco Use Types Packs/Day Years [...] 0 capsule mouth every morning (before breakfast). hydroxychloroquine Take 1 tablet by 60 tablet [...] Burroughs MD [facility] DR SHAYY CASTILLO-DERMAT BERTH[place], [place] [address] (Wo rk) 10/02/2022 Office Visit Pulmonology Laney Calhoun M D [facility] Pulmonary [place] [address] (Wo rk) 11/07/2022 Office Visit Ophthalmology Gifty Bernal MD [facility] [place], [place] [address] (Wo rk) documented as of this encounter Procedures Procedure Name Priority Date/Time Associated Diagnosis Comme nts XR ANKLE MIN 3 Routine 10/13/2019 2:15 PM Left ankle pain, Res ults for this VIEWS LEFT EST unspecified procedure are i n chronicity the results section. XR FOOT 2 VIEWS Routine 10/13/2019 2:15 PM Left ankle pain, Re sults for this LEFT EST unspecified procedure are i n chronicity the results section. documented in this encounter Results XR Foot 2 views Left (10/13/2019 2:15 PM EST) Anatomical Region Laterality Modality Foot Left Digital Radiography Specimen (Source) Anatomical Location Collection Method / Collectio n Time Received Time / Laterality Volume Impressions 10/13/2019 3:32 PM EST Midfoot arthropathy, similar to the prior exam. Thank you for letting us participate in the care of this patient. For questions regarding this report, please contact e number below. ? Narrative 10/13/2019 3:32 PM EST EXAMINATION: XR FOOT 2 VIEWS LEFT CLINICAL HISTORY: PERFORM LEFT FOOT FOR LEFT ANKLE PAIN PER MD PROTOCOL TECHNIQUE: 2 views LEFT foot COMPARISON: 02/24/2019 FINDINGS: There is narrowing of the midfoot joints , particularly the calcaneocuboid and talonavicular joints. Subchondral sclero sis is seen on both sides of those joints. Incidental bipartite medial sesa moid of the hallux. Partially visualized Achilles enthesophyte. Procedure Note Jenifer Mayo MD - 10/13/2019Formatt ing of this note might be different from the original. EXAMINATION: XR FOOT 2 VIEWS LEFT CLINICAL HISTORY: PERFORM LEFT FOOT FOR LEFT ANKLE PAIN PER MD PROTOCOL TECHNIQUE: 2 views LEFT foot COMPARISON: 02/24/2019 FINDINGS: There is narrowing of the midfoot joints , particularly the calcaneocuboid and talonavicular joints. Subchondral sclero sis is seen on both sides of those joints. Incidental bipartite medial sesa moid of the hallux. Partially visualized Achilles enthesophyte. IMPRESSION Midfoot arthropathy, similar to the prio r exam. Thank you for letting us participate in the care of this patient. For questions regarding this report, please contact [facility] number below. Martha Dumont MD IMG DX ORDERABLES XR Ankle Min 3 views Left (Generic) (10/13/2019 2:15 PM EST) Anatomical Region Laterality Modality Ankle Left Digital Radiography Specimen (Source) Anatomical Location Collection Method / Collectio n Time Received Time / Laterality Volume Impressions 10/13/2019 2:41 PM EST LEFT ankle mortise is maintained. There is proliferative enthesopathy of the RIGHT foot as previously described, 2018. Midfoot arthropathy and pes planus. No acute fracture. Thank you for letting us participate in the care of this patient. For questions regarding this report, please contact e number below. ? Electronically signed by: Lesley james MD, [facility] ([phone]), at 10/13/2019 2:41 PM Narrative 10/13/2019 2:41 PM EST EXAMINATION: XR ANKLE MIN 3 VIEWS LEFT (GENERIC) CLINICAL HISTORY: LEFT ANKLE PAIN TECHNIQUE: 3 views LEFT ankle COMPARISON: LEFT lateral ankle for 1 2018. FINDINGS: Weightbearing views of the LEFT ankle de monstrate an intact ankle mortise. Line there remains pes planus with severe mid foot arthropathy. Bulky posterior enthesophyte at the Achilles insertion a nd plantar aspect of the calcaneus. Bulky arthropathy at the talar navicular joint with talar navicular joint space narrowing and degenerative change at the level of the cuneiforms. There remains irregularity at the base of the LEFT fif th metatarsal unchanged from previous. Procedure Note Lesley Truong MD - 10/13/2019Forma tting of this note might be different from the original. EXAMINATION: XR ANKLE MIN 3 VIEWS LEFT ( GENERIC) CLINICAL HISTORY: LEFT ANKLE PAIN TECHNIQUE: 3 views LEFT ankle COMPARISON: LEFT lateral ankle for 1 2018. FINDINGS: Weightbearing views of the LEFT ankle de monstrate an intact ankle mortise. Line there remains pes planus with severe mid foot arthropathy. Bulky posterior enthesophyte at the Achilles insertion a nd plantar aspect of the calcaneus. Bulky arthropathy at the talar navicular joint with talar navicular joint space narrowing and degenerative change at the level of the cuneiforms. There remains irregularity at the base of the LEFT fif th metatarsal unchanged from previous. IMPRESSION LEFT ankle mortise is maintained. There is proliferative enthesopathy of the RIGHT foot as previously described, 2018. Midfoot arthropathy and pes planus. No acute fracture. Thank you for letting us participate in the care of this patient. For questions regarding this report, please contact e number below. [place] Dumont MD IMG DX ORDERABLES documented in this encounter Visit Diagnoses Diagnosis Left ankle pain, unspecified chronicity documented in this encounter Care Teams Linen Keeper Relationship Specialty Start Date End Date Samantha Michelle MD PCP - General 09/14/11 [address] [place] [address] documented as of this encounter
--- OUTSIDE RECORDS SUMMARY | 2022-09-15 01:26 | XMS_ITS | Encounter Summary ---
:1955 [place] [address] Care Team Providers Name Role Phone Samantha Michelle MD Primary Care Provider Encounter Details Date Type Department Care Team Description 09/19/2019 Ancillary Procedure Radiology Library at [place] [facility] [place] [address] ORTHOPAEDIC SURGERY [phone] [place], [place] [address] (Wo rk) Social History Tobacco [...] Ambreen Burroughs MD [facility] DR SHAYY CASTILLO-DERMAT BERTH[place], [place] [address] (Wo rk) 10/02/2022 Office Visit Pulmonology Laney Calhoun M D [facility] Pulmonary Medicguido thornton [place], [place] [address] (Wo rk) 11/07/2022 Office Visit Ophthalmology Gifty Bernal MD [facility] er [place] [address] (Wo rk) documented as of this encounter Procedures Procedure Name Priority Date/Time Associated Diagnosis Comme nts FILM LIBRARY Routine 09/19/2019 12:00 AM Results for this STORAGE ONLY MR EDT procedure ar e in KNEE the results section. documented in this encounter Results Film Library- Storage Only MR Knee (09/19/2019 12:00 AM EDT) Specimen (Source) Anatomical Location Collection Method / Collectio n Time Received Time / Laterality Volume Narrative JOHANA - 10/01/2019 8:07 PM EST This exam is auto-finalizing. It's purpo se is for storage only. Darnell Beasley MD IMG FILM LIBRARY ORDERABLES Performing Organization Address City/State/ZIP Code Phon e Number [facility] [place] 2[place] documented in this encounter Visit Diagnoses Not on filedocumented in this encounter Care Teams Washer Blanket Relationship Specialty Start Date End Date Samantha Michelle MD PCP - General 09/14/11 [address] [place] [address] documented as of this encounter
--- OUTSIDE RECORDS SUMMARY | 2022-09-15 01:26 | XMS_ITS | Encounter Summary ---
:1955 Author Organization [facility] [place] [address] Care Team Providers Name Role Phone Samantha Michelle MD Primary Care Provider Encounter Details Date Type Department Care Team Description 11/28/2019 Telephone Dermatology at Replaced by [facility] Ambreen Thomas MD [address] [facility] [place] [address] [facility] [phone] [place], [place] [address] (Wo rk) Social History Tobacco Use Types Packs/Day Years Used Date Former Smoker Cigarettes 0.25 7 Quit: 02/07/19 75 Smokeless Tobacco: Never Used Alcohol Use Standard Drinks/Week Comments No 0 (1 standard drink = 0.6 oz pure alcoho l) Sex Assigned at Date Recorded Female 03/23/2021 8:16 AM EDT documented as of this encounter Miscellaneous Notes Telephone Encounter - Preethi Dailey R - 11/28/2019 10:06 AM EST Patient returned Lisset's call to schedule biopsy and 6 month follow up w/ Manjeet. I scheduled biopsy for 12/24 w/ Dr. Burroughs - pt was happy with this date and time. Patient declined to schedule 6 month follow up at this time stating that work schedule will most likely be changing. She plans to schedule when she is in clinic on 12/24. Telephone Encounter - Lisset Escoto - 11/28/2019 9:24 AM EST I left a message for Brandi Ruiz requesting a call back to schedule a biopsy as well as a 6 monthfse Telephone Encounter - Lisset Escoto - 11/28/2019 9:24 AM EST ----- Message from Jo Marie sent at 11/24/2019 9:06 AM EST ----- ----- Message ----- From: Lynsey Akbar LPN Sent: 11/24/2019 9:04 AM EST To: Jo Marie Please call to schedule a 6 month full skin examination, as well as a skin shave biopsy at patient'searliest convenience. Thank you! documented in this encounter Plan of Treatment Upcoming Encounters Date Type Specialty Care Team Description 09/26/2022 Office Visit Dermatology Ambreen Burroughs MD [facility] DR SHAYY CASTILLO-DERMAT [place], [place] [address] (Wo rk) 10/02/2022 Office Visit Pulmonology Laney Calhoun M D [facility] Pulmonary Mati thornton [place], [place] [address] (Wo rk) 11/07/2022 Office Visit Ophthalmology Gifty Bernal MD [facility] [place], [place] [address] (Wo rk) documented as of this encounter Visit Diagnoses Not on filedocumented in this encounter Care Teams Design Engineering Technician Relationship Specialty Start Date End Date Samantha Michelle MD PCP - General 09/14/11 [address] [place] [address] documented as of this encounter
--- OUTSIDE RECORDS SUMMARY | 2022-09-15 01:26 | XMS_ITS | Encounter Summary ---
:1955 Author Organization [facility] [address] Care Team Providers Name Role Phone Samantha Michelle MD Primary Care Provider Reason for Visit Reason Comments Left Foot Pain XR-LEFT ANKLE PAIN Consultation (Routine) - Closed Specialty Diagnoses / Procedures Referred By Contact Refer red To Contact Orthopaedics Diagnoses Positive JANETH (antinuclear antibody) Pain in both hands Polyarthritis with positive rheumatoid factor Chronic pain of right knee Primary osteoarthritis of left ankle LEFT ANKLE [place] Martin MD [facility] [address] [facility] [place] [address] [place] [address] Fax: Referral ID Status Reason Start Date Expiration Date Visits V isits Requested Authorized [id number] Closed Consult, 09/29/2019 09/28/2020 1 1 Test & Treat Encounter Details Date Type Department Care Team Description 10/13/2019 Office Visit [place]ed[place] [facility] [place]ont, Rheumatoid arthritis of talo navicular joint; [facility] MD Schaeffer disease; [facility] Peroneal tendonitis of [place] [address] Center [phone] [place], [place] [address] Social History Tobacco Use Types [...] Sign Reading Time Taken Comments Blood Pressure 142/63 10/13/2019 3:33 PM EST Pulse 86 10/13/2019 3:33 PM EST Temperature - - Respiratory Rate - - Oxygen Saturation - - Inhaled Oxygen Concentration - - Weight 141.1 kg (311 lb) 10/13/2019 3:33 PM EST reporte d Height 175.9 cm (5' 9.25) 10/13/2019 3:33 PM EST repor geetha Body Mass Index 45.6 10/13/2019 3:33 PM EST documented in this encounter Progress Notes Martha Dumont MD - 10/13/2019 3:00 PM EST Chief complaint: left foot and ankle pain History of present illness: Brandi is a very pleasant 64-year-old female, 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 Patient denies any recent remote history of trauma to the left foot or ankle. Her pain worsens with any sort of weightb earing activity and is particularly bad on uneven ground. Pain is primarily posterior laterally, in the region of the peroneal tendons, as well as in the region of the sinus Tarsi and dorsolaterally over the talonavicular joint. She also feels as though she is walking on the outside border of her [facility]. She has not tried any interventions thus far for her pain Pertinent past medical history includes a recent diagnosis of dermatomyositis. Pertinent past surgical history includes a right knee replacement just about 1 year ago. She continues to have some pain and swelling from this. Past medical history: Per HPI. Is additionally reported in the problem list. I have reviewed this list and discussed contents with the patient. There are no changes Physical exam: Patient is in no acute distress. Alert and oriented. Mood and affect are appropriate On standing examination there is varus alignment of the hindfoot on the left with neutral forefoot position. On the right, hindfoot is in neutral position with neutral forefoot Focused examination right lower extremity there is mild swelling overlying the peroneal tendons There is full, painless passive range of motion of the ankle. Range of motion of the subtalar joint is approximately 20 degrees inversion to - 5 degrees eversion Range of motion of the transverse tarsal joint is approximately 5 degrees adduction to 0 degrees abduction There is tenderness palpation overlying the peroneal tendons, tenderness at the sinus Tarsi, and tenderness overlying the talonavicular joint. Mild tenderness at the calcaneocuboid joint On motor exam, there is 5/5 strength dorsiflexion, plantarflexion, inversion, eversion, EHL, FHL Sensation is intact to light touch in the sural, saphenous, deep peroneal, superficial peroneal, andtibial nerve distributions Toes are warm and well perfused with 2+ palpable DP and PT pulses Imaging: AP and oblique views of the ankle demonstrate no evidence of acute fracture or degenerativechange. Tibiotalar mortise is symmetric with no talar tilt or talar shift. On lateral x-ray there issevere degenerative change noted at the talonavicular joint. There is flattening and a slight hourglass shaped the navicular suggestive of Churchill Theodore syndrome. Also noted are degenerative changes ofthe subtalar joint calcaneocuboid joint. Imaging of the foot demonstrates adduction of the talonavicular joint with collapse of the lateral navicular, suggestive of Churchill Theodore syndrome variant. 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 Treatment options were discussed at length. As the patient has not as of yet tried any conservative measures for management of her pain, I have suggested beginning with an Esperanza AFO brace on the left side. She is still having a lot of residual pain on her right side following her knee replacement, and her knee on that side will need to be fully rehabilitated if we were to consider reconstructive surgery on the left side -Prior to any operative intervention we would obtain a CT scan and MRI for preoperative planning. Most likely, she will need a triple arthrodesis with a peroneal tendon transfer -We will see her back in clinic in 8 to 10 weeks, after she has gotten her brace documented in this encounter Plan of Treatment Upcoming Encounters Date Type Specialty Care Team Description 09/26/2022 Office Visit Dermatology Ambreen Burroughs MD [facility] DR [address]-DERMAT BERTHA [place], [place] [address] (Wo rk) 10/02/2022 Office Visit Pulmonology Laney Calhoun M D [facility] Pulmonary Medici hillary [place], [place] [address] (Wo rk) 11/07/2022 Office Visit Ophthalmology Gifty Bernal MD 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
--- OUTSIDE RECORDS SUMMARY | 2022-09-15 01:26 | XMS_ITS | Encounter Summary ---
:1955 Author Organization [facility] [place] [address] Care Team Providers Name Role Phone Samantha Michelle MD Primary Care Provider Encounter Details Date Type Department Care Team Description 09/22/2019 Hospital XRay at [facility] [place], Dysphagia, unspecified type; Encounter 1 [facility] Lisset Monson APRN Gastroesophageal reflux disease, esophag itis presence not specified; Dr [facility] Dermatomyositis; [place], [place] Center Constipation, unspecified constipation t [facility] [id number] GASTROENTEROLOG [phone] [place] [address] Social History Tobacco Use Types Packs/Day Years [...] 09/26/2022 Office Visit Dermatology Ambreen Burroughs MD [facility] MED[facility] DR SHAYY CASTILLO-DERMAT [place], [place] [address] (Ashvin disla) 10/02/2022 Office Visit Pulmonology Laney Calhoun M D [facility] Medical [facility] Pulmonary Medicguido thornton [place], [place] [address] (Ashvin disla) 11/07/2022 Office Visit Ophthalmology iGfty Bernal MD [facility] er [place], [place] [address] (Ashvin disla) documented as of this encounter Procedures Procedure Name Priority Date/Time Associated Diagnosis Comme nts XR FLUORO BARIUM Routine 09/22/2019 9:07 AM Dysphagia, Resul ts for this SWALLOW (COMBINED) EDT unspecified t ype procedure are in Gastroesophageal the results reflux disease, section. esophagitis presence not specified Dermatomyositis Constipation, unspecified constipation type documented in this encounter Results (ABNORMAL) XR Fluoro Combined Swallow (09/22/2019 9:07 AM EDT) Anatomical Region Laterality Modality N/A Radio Fluoroscopy Specimen (Source) Anatomical Location Collection Method / Collectio n Time Received Time / Laterality Volume Impressions 09/22/2019 10:13 AM EDT 1. No aspiration. 2. Mild curvature spelled with solids. 3. The esophagus is normal. 4. No evidence of Zenker's diverticulum. 5. Numerous filling defects in the stoma ch particularly in the region of the fundus. These are most consistent with p olyps however direct visualization is recommended to evaluate. Unexpected find ing. Thank you for letting us participate in the care of this patient. For questions regarding this report, please contact e number below. ? Electronically signed by: RIAN Samuels [facility] ([phone]), at 09/22/2019 10:13 AM Narrative 09/22/2019 10:13 AM EDT EXAMINATION: XR FLUORO COMBINED SWALLOW CLINICAL HISTORY: dysphagia ?oropharynge al and esophageal dysphagia ?zenker's diverticulum TECHNIQUE: 1.78 minutes fluoroscopy time COMPARISON: None FINDINGS: The esophagus is normal. There is no christen dence of hiatal hernia. There is no witnessed reflux. The pharynx is normal. The stomach has numerous filling defects which coats with barium. These are most consistent with numerous polyps however direct visualization is recommended for evaluation. A modified study was performed with [facility] pathology. There was mild premature spillage with soft solids and with regul ar solids. Swallows were otherwise within normal limits. No evidence of Freeman ker's diverticulum was seen. Resulting Agency Comment Unexpected Finding Lisset Monson Sue [employer] TE[employer] IMG FLUORO ORDERABLES documented in this encounter Visit Diagnoses Diagnosis Dysphagia, unspecified type Gastroesophageal reflux disease, esophag itis presence not specified Dermatomyositis Constipation, unspecified constipation t ype documented in this encounter Administered Medications Inactive Administered Medications - up to 3 most recent administrations Medication Order MAR Action Action Date Dose Rate Site barium sulfate (E-Z DISK) tablet Given 09/22/2019 9:45 AM EDT 70 0 mg 700 mg 700 mg, Oral, ONCE, 1 dose, On Sun09/22/19 at 0945, Routine barium sulfate (E-Z-HD) 98% oral liquid 340 g Given 09/22/2019 9:45 AM EDT 340 g 340 g, Oral, ONCE, 1 dose, On 09/22/19 at 0945, Routine barium sulfate (Ezpaque) 60% (w/v) oral Given 09/22/2019 9:45 AM EDT 355 mLs liquid 355 mL 355 mL, Oral, ONCE, 1 dose, On 09/22/19 at 0945, Routine barium sulfate (VARIBAR PUDDING) oral paste 5 Given 9:45 AM EDT 5 mLs mL 5 mL, Oral, ONCE, 1 dose, On 09/22/19 at 0945, Routine barium sulfate (VARIBAR THIN LIQUID) oral Given 09/22/2019 9:45 AM EDT 5 mLs powder 5 mL 5 mL, Oral, ONCE, 1 dose, On 09/22/19 at 0945, Routine documented in this encounter Care Teams Door Closer Mechanic Relationship Specialty Start Date End Date Samantha Michelle MD PCP - General 09/14/11 [address] [place] [address] documented as of this encounter
--- OUTSIDE RECORDS SUMMARY | 2022-09-15 01:26 | XMS_ITS | Encounter Summary ---
:1955 Author Organization [facility] [place] [address] Care Team Providers Name Role Phone Samantha Michelle MD Primary Care Provider Reason for Visit Reason Comments Follow-up Dermatomyositis Encounter Details Date Type Department Care Team Description 11/24/2019 Office Visit Dermatology at [facility] [place] oplasm of uncertain behavior of skin; Dinesh Arguello MD Dermatomyositis; [address] [facility] History of allergic contact dermatitis; [place] [address] FRENCH (lichen simplex chronicus) [phone] [facility] [place], [place] [address] Social History Tobacco Use Types Packs/Day Years Used Date Former Smoker Cigarettes 0.25 7 Quit: 02/07/19 76 Smokeless Tobacco: Never Used Alcohol Use Standard Drinks/Week Comments No 0 (1 standard drink = 0.6 oz pure alcoho l) Sex Assigned at Date Recorded Female 03/23/2021 8:16 AM EDT documented as of this encounter Progress Notes Ambreen Burroughs MD - 11/24/2019 8:00 AM EST DERMATOLOGY ESTABLISHED PATIENT CLINIC NOTE Date of service: 11/24/2019 Brandi Ruiz : 1955 Provider: Ambreen Burroughs MD Chief Complaint Patient presents with ??? Follow-up Dermatomyositis SKIN HISTORY: Skin cancer: BCC: face 1999, left arm 2000, right arm 2013 ?? Dermatomyositis: Amyopathic dermatomyositis. Her JANETH is positive at 1-160 with a myositis antibody panel with a weakly positive anti-LORI 1 antibody. Her's CK has been normal. Her rheumatoid factor is mildly elevated at17 with an elevated CRP Workup has included: - Biopsy consistent with interface dermatitis that is seen in connective tissue disorder - +SAE1 antibody - Aldolase and CK not elevated - ? lesions in the liver based on CT scan of chest/abdomen/pelvis - Further PET scan follow up negative for underlying malignancy - MRI of lower extremities negative for myositis??, but did show a soft tissue mass - seen by ortho 10/2019 - on plaquenil since ? April 2019. Tolerating well 05/06/2019 Right upper arm, punch biopsy: Vacuolar interface dermatitis. Discussion: Sections show a basket weave stratum corneum with focal parakeratosis overlying a thin epidermis. Subtle vacuolar interface change is present with few scattered dyskeratotic cells. There is associated superficial perivascular lym phohistiocytic inflammation. Papillary dermal edema and deep perivascular inflammation are not seen to suggest polymorphous light eruption. Multiple deeper sections have been examined. Overall, the findings are consistent with the clinical impression of connective tissue disease, including dermatomyositis and lupus. Similar histologic changes may be seen in viral exanthem or drug reaction. Clinicopathologic correlation is recommended. ?? 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 Family Skin History: Melanoma: No known ?? 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 Patient Preferences: Preferred name: Brandi Preferred contact method with results: myD-H Detailed message including biopsy results okay?: Yes Are there any other people with whom we may discuss your care?: N/A Preferred pharmacy: [facility] HPI Brandi Ruiz is a 64 y.o. year old female, established patient last seen by me on 08/04/19. Here today for a Dermatomyositis follow up. Continues Plaquenil 400 mg daily. Has not needed TAC ointment for her Dermatomyositis. Patient reports she has been recovering from colds faster than before which she is happy with. Mentions she had shingles on her left neck 3 weeks ago, pain has resolved with Gabapentin and Valtrex, however she reports the itching and rash is still present. Also reports pain downher left arm at night. Also notes change in a scar where she had a BCC removed approx 10-15 years ago MEDS: Current Outpatient Medications Medication Sig Dispense Refill ??? gabapentin (NEURONTIN) 300 mg Capsule TK 1 C PO QD X 1 DAY THEN 1 C BID X 1 DAY THEN 1 C TID THEREAFTER ??? valACYclovir (VALTREX) 1 gram Tablet TK 1 T PO TID ??? hydroxychloroquine (PLAQUENIL) 200 mg Tablet Take 1 tablet by mouth 2 times daily. 60 tablet 3 ??? fish oil-omega-3 fatty acids 1,000 mg Capsule Take 2 g by mouth daily. ??? TURMERIC ORAL Take by mouth. ??? diclofenac (VOLTAREN) 75 mg Tablet, Delayed Release (E.C.) Take 1 tablet by mouth 2 times daily.60 tablet 3 ??? polyethylene glycol (MIRALAX) 17 gram Powder in Packet Take 17 g by mouth daily. ??? ALPRAZolam (XANAX) 0.25 mg Tablet Take 0.25 mg by mouth as needed. 1 ??? HYDROcodone-acetaminophen (NORCO) 5-325 mg Tablet Take 1 tablet by mouth as needed (Following R TKA). 0 ??? ondansetron (ZOFRAN) 4 mg Tablet Take 4 mg by mouth as needed. 6 ??? aspirin 81 mg Tablet, Delayed Release (E.C.) Take 81 mg by mouth daily. ??? triamcinolone (KENALOG) 0.1 % Ointment Apply [...] No current facility-administered medications for this visit. ADR: Allergies Allergen Reactions ??? Ceclor [Cefaclor] Hives ??? Pcn [Penicillins] Anaphylaxis ??? Phenergan [Promethazine] Anaphylaxis ??? Preservative Anaphylaxis Sulfites ??? Sulfite ??? Vancomycin Hives ROS General: feeling well Skin: denies other skin complaints EXAM General: NAD, pleasant, cooperative Skin: Focused exam of the face, hands, chest, neck Significant skin findings: A. Left alar crease: scar with translucent papule within B. Face, eyelids and hands are essentially clear. Mild dilation of several nailfold capillaries C. Hands clear D. lichenifed papules on the left neck, no vesicles ASSESSMENT/PLAN: A. Scar vs recurrent BCC -call to schedule biopsy B. Dermatomyositis Well controlled on plaquenil - Refill needed Continue sun protection Followed by rheumatology as well C. History of hand dermatitis, ACD D. Recent shingles, completed valtrex, on gabapentin. Exam today shows LSC on neck -TAC 0.1% bid for 2 weeks as needed ADDENDUM: plaquenil and lexapro - prolonged qtc interval interaction from CP online, not listed as interaction in lexacomp pharmacology program. Not taking zofran, also listed with this interaction. DIscussed with Dr. Herron and clinical pharmacology team. Previously tolerated. COntinue to monitor. DIscussed with pt, she will avoid zofran. Follow up: 6 months, sooner if needed. Instructed to call with questions or concerns. I am documenting this encounter acting as the scribe for and in the presence of Dr. Burroughs: GISELA PEREZ LPN I performed the above scribed service and agree with the accuracy of the documentation in this encounter. Ambreen Burroughs MD Plant Technician/Control Room Operator of Dermatology, Department of Surgery [facility] documented in this encounter Plan of Treatment Upcoming Encounters Date Type Specialty Care Team Description 09/26/2022 Office Visit Dermatology Ambreen Burroughs MD [facility] DR SHAYY CASTILLO-DERMAT [place], [place] [address] (Wo rk) 10/02/2022 Office Visit Pulmonology Laney Calhoun M D [facility] Pulmonary Medicguido thornton [place], [place] [address] (Wo rk) 11/07/2022 Office Visit Ophthalmology Gifty Bernal MD [facility] [place], [place] [address] (Wo rk) documented as of this encounter Visit Diagnoses Diagnosis Neoplasm of uncertain behavior of skin Dermatomyositis History of allergic contact dermatitis Personal history of diseases of skin and subcutaneous tissue LSC (lichen simplex chronicus) Lichenification and lichen simplex chron icus documented in this encounter Care Teams Anesthesia Resident Relationship Specialty Start Date End Date Samantha Michelle MD PCP - General 09/14/11 [address] [place] [address] documented as of this encounter
--- OUTSIDE RECORDS SUMMARY | 2022-09-15 01:26 | XMS_ITS | Encounter Summary ---
:1955 Author Organization [facility] [place] [address] Care Team Providers Name Role Phone Samantha Michelle MD Primary Care Provider Encounter Details Date Type Department Care Team Description 08/04/2019 Procedure visit Gastroenterology at [place], [place] agia, unspecified type; [facility] LINH Benitez Gastroesophageal reflux disease, esophag itis presence not specified; [facility] Dermatomy ositis; [facility] [address] Constipation, [place] [address] [place] [id number] Social History Tobacco Use Types Packs/Day Years Used Date Former Smoker Cigarettes 0.25 7 Quit: 02/07/19 76 Smokeless Tobacco: Never Used Alcohol Use Standard Drinks/Week Comments No 0 (1 standard drink = 0.6 oz pure alcoho l) Sex Assigned at Date Recorded Female 03/23/2021 8:16 AM EDT documented as of this encounter Procedure Notes Jonathan Wong PA - 08/04/2019 3:30 PM EDTAssociated Order(s): FIBROSCAN Procedure(s): FIBROSCAN Pre-Procedure Diagnose(s): Dysphagia, unspecified type; Gastroesophageal reflux disease, esophagitispresence not specified; Dermatomyositis; Constipation, unspecified constipation type [facility] Liver Fibrosis Assessment Report Indication: Hepatic steatosis and hepatomegaly on recent CT scan Performed by: LINH Odonnell Procedure: Vibration Controlled Transient Elastography (VCTE) or Fibroscan [employer] Protocol: Patient's identity, procedure and site were verified, confirmatory pause performed. Discussed procedure including risks and potential complications. Questions answered. Patient verbalizes understanding and wishes to proceed with Fibroscan assessment. Patient was placed in the supine position with right arm in maximum abduction to allow optimal exposure of right lateral abdomen. Patient was briefly assessed. Testing was performed in the mid-axillarylocation. 50Hz Shear Wave pulses were applied and the resulting Shear Wave and Propagation Speed wasdetected with a 3.5MHz ultrasonic signal, using the Fibroscan probe. Skin to liver capsule distance and liver parenchyma were accessed during the entire examination with the Fibroscan probe. Patient was instructed to breathe normally and abstain from sudden movements during the procedure. At least tenSheer Waves were produced; individual measurements of each Shear Wave were calculated. Patient tolerated the procedure well with no complications. Fibroscan Results: Median kPa: 4.9 Mean IQR: 6% (goal is <30 %) Number of valid measurements: 10 (at least 10 required) Number of invalid measurements: 1 Predicted fibrosis stage: F0-F1 CAP (dB/m): 338 Estimated steatosis grade: 3/3 % hepatocytes affected: > 66% XL probe used Interpretation: Based on this Fibroscan result, history, clinical examination and review of laboratory and radiological data, this patient likely has stage 0-1 liver fibrosis and grade 3 steatosis affecting greater than 66% of hepatocytes. documented in this encounter Plan of Treatment Upcoming Encounters Date Type Specialty Care Team Description 09/26/2022 Office Visit Dermatology Ambreen Burroughs MD [facility] DR SHAYY CASTILLO-DERMAT [place], [place] [address] (Ashvin disla) 10/02/2022 Office Visit Pulmonology Laney Calhoun M D [facility] Pulmonary Medicguido [place], [place] [address] (Ashvin disla) 11/07/2022 Office Visit Ophthalmology Gifty Bernal MD [facility] [place], [place] [address] (Wo rk) documented as of this encounter Procedures Procedure Name Priority Date/Time Associated Diagnosis Comme nts [id number] Routine 08/04/2019 3:30 PM Dysphagia, unspecified Results for this EDT type procedure are in Gastroesophageal the results reflux disease, section. esophagitis presence not specified Dermatomyositis Constipation, unspecified constipation type documented in this encounter Results [id number] (08/04/2019 3:30 PM EDT) Narrative Jonathan Wong PA - 08/04/2019 3:30 PM EDT Jonathan Wong PA ? 08/04/2019 ??4:07 PM [facility] Liver Fibrosis Asses sment Report Indication: ?? Hepatic steatosis and hep atomegaly on recent CT scan Performed by: ??LINH Odonnell Procedure: Vibration Controlled Transien t Elastography (VCTE) or Fibroscan [employer] Protocol: Patient's identity, procedure and site were verified, confirmatory pause performed. Discussed procedure including risks and potential complicati ons. Questions answered. Patient verbalizes understanding and wis hes to proceed with Fibroscan assessment. Patient was placed in the supine positio n with right arm in maximum abduction to allow optimal expos ure of right lateral abdomen. Patient was briefly assessed. T esting was performed in the mid-axillary location. 50Hz Shear Wa ve pulses were applied and the resulting Shear Wave and Propaga tion Speed was detected with a 3.5MHz ultrasonic signal, using t he Fibroscan probe. Skin to liver capsule distance and liver pare nchyma were accessed during the entire examination with the F ibroscan probe. Patient was instructed to breathe normally and a bstain from sudden movements during the procedure. At least ten Sheer Waves were produced; individual measurements of eac h Shear Wave were calculated. Patient tolerated the proced ure well with no complications. Fibroscan Results: Median kPa: 4.9 Mean IQR: 6% (goal is <30 %) Number of valid measurements: 10 (at [address] 10 required) Number of invalid measurements: 1 Predicted fibrosis stage: F0-F1 CAP (dB/m): 338 Estimated steatosis grade: 3/3 % hepatocytes affected: > 66% XL probe used Interpretation: Based on this Fibroscan result, history, clinical examination and review of laboratory and radiological da ta, this patient likely has stage 0-1 liver fibrosis and grade 3 steatosis affecting greater than 66% of hepatocytes. Lisset Rogers OUTBOUND SALES SPECIALIST PROCEDURE/MINOR SURGICAL ORD ERABLES documented in this encounter Visit Diagnoses Diagnosis Dysphagia, unspecified type Gastroesophageal reflux disease, esophag itis presence not specified Dermatomyositis Constipation, unspecified constipation t ype documented in this encounter Care Teams Barrel Cutter Relationship Specialty Start Date End Date Samantha Michelle MD PCP - General 09/14/11 [address] [place] [address] documented as of this encounter
--- OUTSIDE RECORDS SUMMARY | 2022-09-15 01:26 | XMS_ITS | Encounter Summary ---
:1955 Author Organization [facility] [place] [address] Care Team Providers Name Role Phone Samantha Michelle MD Primary Care Provider Encounter Details Date Type Department Care Team Description 02/11/2020 Hospital Encounter Pulmonology at [facility] Mild [facility] asthma[place] [address] Social History Tobacco Use Types Packs/Day [...] 01/18/2022 (FLONASE) 50 mcg/actuation Nare route daily. [place], Suspension doxycycline (VIBRAMYCIN) Take 1 capsule by [...] as needed documented as of this encounter Procedure Notes Josiane Boyer MD - 02/11/2020 11:46 AM EDTAssociated Order(s): PULMONARY FUNCTION TEST Pulmonary Function Test Interpretation FEV1 is normal. FVC is normal. The FEV1/FVC ratio is normal. Uncorrected single-breath diffusion capacity for CO was normal. Impression: Normal spirometry and diffusion capacity. JOSIANE BOYER MD documented in this encounter Plan of Treatment Upcoming Encounters Date Type Specialty Care Team Description 09/26/2022 Office Visit Dermatology Ambreen Burroughs MD [facility] [address]-DERMAT [place] [address] (Wo rk) 10/02/2022 Office Visit Pulmonology Laney Calhoun M D [facility] Pulmonary Medicguido thornton [place], [place] [address] (Wo rk) 11/07/2022 Office Visit Ophthalmology Gifty Bernal MD [facility] [place], [place] [address] (Wo rk) documented as of this encounter Procedures Procedure Name Priority Date/Time Associated Diagnosis Comme [facility] PULMONARY FUNCTION Routine 02/11/2020 11:46 Mild intermittent Results for this TEST AM EDT asthma, uncomplicated proced ure are in the results section. documented in this encounter Results Pulmonary Function Testing (02/11/2020 11:46 AM EDT) Narrative Josiane Boyer MD - 02/11/2020 11:46 A M EDT Josiane Boyer MD ? 02/11/2020 11:47 AM Pulmonary Function Test Interpretation FEV1 is normal. ??FVC is normal. ??The F EV1/FVC ratio is normal. Uncorrected single-breath diffusion [place] for CO was normal. Impression: Normal spirometry and diffus ion capacity. JOSIANE BOYER MD Christophe Theodore MD PFT ORDERABLES documented in this encounter Visit Diagnoses Diagnosis Mild intermittent asthma, uncomplicated Unspecified asthma documented in this encounter Care Teams Home Health Cna Relationship Specialty Start Date End Date Samantha Michelle MD PCP - General 09/14/11 [address] [place] [address] documented as of this encounter
--- OUTSIDE RECORDS SUMMARY | 2022-09-15 01:26 | XMS_ITS | Encounter Summary ---
:1955 Author Organization [facility] [place] [address] Care Team Providers Name Role Phone Samantha Michelle MD Primary Care Provider Reason for Visit Speech Therapy (Routine) - Closed Specialty Diagnoses / Procedures Referred By Contact Refer red To Contact Speech Pathology / Diagnoses Dysphagia, unspecified type Gastroesophageal reflux disease, esophagitis presence not specified Constipation, unspecified constipation type Lisset Rogers, [facility] Insurance Clerk R ehab Speech Therapy RN DOCUMENT IMPROVEMENT SPECIALIST [facility] [address], [place] GASTROENTEROLOGY [address] [place] [address] Referral ID Status Reason Start Date Expiration Date Visits V isits Requested Authorized [id number] Closed Evaluate and 07/15/2019 07/14/2020 1 1 Treat Encounter Details Date Type Department Care Team Description 09/22/2019 Office Visit Speech Therapy at Ezekiel Rahman, [facility] Dyan Newman CREATIVE CONSULTANT unspecified type [facility] [address], [place] PHYSICAL MEDICINE & [phone] REHABILITAT [phone] [place] [address] Social History Tobacco Use Types Packs/Day Years Used Date Former Smoker Cigarettes 0.25 7 Quit: 02/07/19 76 Smokeless Tobacco: Never Used Alcohol Use Standard Drinks/Week Comments No 0 (1 standard drink = 0.6 oz pure alcoho l) Sex Assigned at Date Recorded Female 03/23/2021 8:16 AM EDT documented as of this encounter Progress Notes Dyan Rahman, CREATIVE CONSULTANT - 09/22/2019 9:00 AM EDT Speech-Language Pathology OP Combined / Modified Barium Swallow Evaluation Patient Name: Brandi Ruiz Date of : 1955 Referring Provider: Lisset Rogers APRN Date Seen by Provider: 07/15/2019 Diagnosis: Dysphagia, GERD Date of Onset: +2-3 years Date of Evaluation: 09/22/2019 Duration of Evaluation 60 minutes Certification Period: Eval Only Total Timed Code Treatment: 0 minutes S: Pt. denies pain at this time. Pt alert and cooperative with study. O: Order received and completed with this 64 y.o. female referred by Lisset Rogers APRN Current Problem / Complaint: Pt notes that in the past few years, she has had to become very cautious when she eats, she goes slowly and notes that she cannot be out of breath or talking while eating or she may choke. She reports a globus sensation low in her throat, typically w/ solids, happens almost every meal at least once. At times, pt reports needing to go to the bathroom and cough it back out. Pt reports that crunchy, harder to chew foods may be more difficult but states that it can happen w/ any food and sometimes w/ pills as well. Liquids alone appear to be the easiest. Pt notes that this can occur at the beginning, middle, or end of a meal, and any time of day. She cannot predict. Pt reports that she had PNA last winter, that she believes was due to an aspiration event. Relevant Medical History: As per referring provider's OP note on 07/15/2019 pt w/ hx significant for dematomyositis, GINO, hypothyroidism, and anxiety. Has been on PPI for 12 years for GERD. Dysphagia for several years. Choking and coughing. It feels like I aspirate. Otherwise denies food impactions or becoming lodged. Has not had a barium swallow done for this issue. Last EGD 2011. This was normal. Has been taking nexium for at least 13 years for reflux. Denies reflux symptoms when she remembers to take reflux. Just had her knee replacement. Had been taking NSAIDs regularly recently. Also takes NSAIDs for migraines. Good appetite. Denies unintentional weight loss. History of anemia, but this was related to menstrual issues. Nocturnal faintness, nausea, diaphoresis, and vomiting multiple times. This occurs once every fewmonths. Typically at night time. Has been following the GERD diet and lifestyle modifications. Denies abdominal pain. Past Medical History: Diagnosis Date ??? Allergy 1985 sulfites (preservative), pcn, ceclor, mold, dogs ??? Bladder disorder 2007 stress urinary incontinence ??? Blood disease 1997 anemia due to heavy periods ??? Bone disease 1996 OA and DJD of knees ??? Cancer 1996 skin basal cell ??? Chronic pain 2008 knees ??? Circulatory disease 1989 varicose veins ??? Genital disease, female 2010 heavy menses, fibroids ??? Headache(784.0) 1987 migraine headaches ??? Heart disorder 1972 svt ??? Hypothyroid ??? Hypothyroidism 10/28/2012 ??? Mental or behavioral problem 1976 anxiety ??? SVT (supraventricular tachycardia) Medications: Current Outpatient Medications Medication Sig Dispense Refill [...] Take 81 mg by mouth daily. ??? hydroxychloroquine (PLAQUENIL) 200 mg Tablet Take [...] current facility-administered medications for this visit. Current Diet: regular Cognitive-Linguistic Status: alert, Ox4, able to follow directions and respond to questions Respiratory Status: pt on room air Feeding / Oral Care Status: pt independent Seating and Positioning: pt able to stand / sit up with head midline without assistance; pt ambulates independently Oral Peripheral WFL: labial, buccal, lingual, jaw ROM, strength, agility, and sensation Velar elevation and retraction adequate Intact gag reflex Adequate laryngeal elevation, retraction to palpation Volitional swallow, throat clear, cough prompt and strong Speech and voice judged to be WNL Dentition: intact and adequate Bolus Presentation(s) (all consistencies are mixed with Barium) ?? Thin liquid via cup, via straw ?? [place] thick liquid via cup ?? Thick puree via spoon ?? Soft solid via spoon ?? Hard solid ?? Pill w/ thin contrast via straw Oral Preparatory Phase Adequate lip closure, no loss from oral cavity; normal bolus cohesion and A-P propulsion w/ liquids and purees; prompt swallow initiation, no significant oral residue noted. W/ soft solids and solids; mild tongue pumping and reduced bolus cohesion w/ bolus passing below base of tongue and into pharynxprior to swallow initiation Pharyngeal Phase (Lateral View) Appears to be WFL, no aspiration or penetration noted during evaluation. Prompt, distinct, and coordinated pharyngeal swallow with liquids and puree Difficulties Revealed: ?? Premature spillage into valleculae w/ soft solid and solid ?? Swallow triggered at vallecular spaces w/ soft solid and solid (AP View) ?? Appearance was symmetrical ?? Bolus transit was symmetrical ?? Vocal cord adduction appeared normal Esophageal Phase No immediate intra esophageal reflux noted, normal relaxation of upper esophageal sphincter Please see Radiology Report for detailed description A: Dx: ?? No significant Oropharyngeal Dysphagia noted at this time with this study w/ liquids or purees. Functional swallow w/ soft solids and solids, w/ slight oropharyngeal dysphagia characterized by tongue pumping, premature spillage into valleculae prior to swallow intiation w/ solids. Please see Radiology report for discussion of esophagram portion of the study. ?? Aspiration / Penetration Scale Score (RosenMann roper et al. Dysphagia, 1995) ??? 1 = no material enters the airway ??? 2 = material enters the airway, does not touch the vocal cords, and is completely ejected ??? 3 = material enters the airway, does not touch the vocal cords, but is not ejected ??? 4 = material enters the airway, contacts the vocal cords, but is ejected ??? 5 = material enters the airway, contacts the vocal cords, but is not ejected ??? 6 = material enters the airway, passes below the vocal cords, and is ejected ??? 7 = material passes below the vocal cords, is not ejected, but there is effort made to expel material ??? 8 = material passes below the vocal cords, and there is no attempt to eject it Recommendations: Diet: no restrictions recommended at this time Standard Aspiration Precautions / Safe Swallowing Strategies: ?? Upright for all oral intake; avoid drinking from tall cups / bottles that require head tilted back position to finish ?? Small bites of solids ?? Chew and Swallow everything in mouth prior to next bite ?? Alternate solids and liquids to clear any oropharyngeal residue that may remain w/ hard particulate solids ?? Maintain excellent oral care ?? Remain upright for 30 - 60 minutes after oral intake P: ?? [facility] Speech Pathology available to consult for carryover and safety with recommendations as needed, desired by pt. Pt provided w/ this clinician's contact information in this report (see below). Pt and providers encouraged to email me w/ any questions or concerns, and to call my office if f/u appointments are desired in the future. ?? F/u w/ referring provider ?? Reviewed findings and recommendations after study w/ pt. ?? Pt./family are in agreement with plan of treatment. Thank you for this consult with this patient. Please feel free to contact me with any questions or concerns. Dyan Rahman MA CCC-CREATIVE CONSULTANT [facility] Rehabilitation Medicine [phone] Pager:# [phone] [email or web address] documented in this encounter Plan of Treatment Upcoming Encounters Date Type Specialty Care Team Description 09/26/2022 Office Visit Dermatology Ambreen Burroughs MD [facility] [address] [place], [place] [address] (Wo rk) 10/02/2022 Office Visit Pulmonology Laney Calhoun [facility] Pulmonary Medicguido thornton [place], [place] [address] (Wo rk) 11/07/2022 Office Visit Ophthalmology Gifty Bernal MD [facility] [place], [place] [address] (Wo rk) Scheduled Referrals Name Type Priority Associated Diagnoses Order S chedule Referral to Speech Outpatient Referral Routine Dysphagia, Or dered: Therapy unspecified type 07/15/2019 Gastroesophageal reflux disease, esophagitis presence not specified Constipation, unspecified constipation type documented as of this encounter Visit Diagnoses Diagnosis Dysphagia, unspecified type documented in this encounter Care Teams Tortilla Maker Relationship Specialty Start Date End Date Samantha Michelle MD PCP - General 09/14/11 [address] [place] [address] documented as of this encounter
--- OUTSIDE RECORDS SUMMARY | 2022-09-15 01:26 | XMS_ITS | Encounter Summary ---
:1955 Author Organization [facility] [place] [address] Care Team Providers Name Role Phone Samantha Michelle MD Primary Care Provider Reason for Visit Diagnostic Test (Routine) - Closed Specialty Diagnoses / Procedures Referred By Contact Refer red To Contact Radiology Diagnoses Abnormal MRI Cuba Martin MD [facility] Rad Mri Procedures MRI Lower Extremity Non Joint wwo Contrast Right [facility] [place] [address] [place] [address] Referral ID Status Reason Start Date Expiration Date Visits V isits Requested Authorized [id number] Closed Specialty 06/06/2019 06/05/2020 1 1 Service Requested Encounter Details Date Type Department Care Team Description 08/12/2019 Hospital Encounter MRI [place] [facility] [place] Martin, Canceled [facility] (P-INCONVENIENT DATE [facility] [employer] OR TIME) [facility] [address] [place], [place] [phone] [id number] Social History Tobacco Use Types Packs/Day Years [...] 09/26/2022 Office Visit Dermatology Ambreen Burroughs MD [facility] DR [address] [place] [address] (Wo rk) 10/02/2022 Office Visit Pulmonology Laney Calhoun [facility] Pulmonary Medicguido [place]ton [place], [place] [address] (Wo rk) 11/07/2022 Office Visit Ophthalmology Gifty Bernal MD [facility] [place], [place] [address] (Wo rk) documented as of this [...] s equences, there is signal dropout multiple petroleum products sales representative levels of the di stal femoral [...] e number below. ? Electronically signed by: Jame Monroy [facility] ([phone]), at 09/02/2019 1:53 PM Narrative 09/02/2019 1:53 PM EDT EXAMINATION: MRI [...] s equences, there is signal dropout multiple petroleum products sales representative levels of the di stal femoral [...] this report, please contact e number below. Electronically signed by: Jame Monroy [facility] ([phone]), at 09/02/2019 1:53 PM Cuba Martin MD IMG MRI ORDERABLES documented in this encounter Visit Diagnoses Not on filedocumented in this encounter Care Teams Electronics Lead Relationship Specialty Start Date End Date Samantha Michelle MD PCP - General 09/14/11 [address] [place] [address] documented as of this encounter
--- OUTSIDE RECORDS SUMMARY | 2022-09-15 01:26 | XMS_ITS | Encounter Summary ---
:1955 Author Organization [facility] Address [place] [id number] Care Team Providers Name Role Phone Samantha Michelle MD Primary Care Provider Reason for Visit Consultation (Routine) - Closed Specialty Diagnoses / Procedures Referred By Contact Refer red To Contact Pulmonology Diagnoses Inflammatory arthropathy Positive JANETH (antinuclear antibody) SOB (shortness of breath) Cuba Martin MD [facility] [place] [facility] [address] [place] [address] [place] [address] [place] [address] Fax: Referral ID Status Reason Start Date Expiration Date Visits V isits Requested Authorized [id number] Closed Consult, 06/23/2019 06/22/2020 1 1 Test & Treat Encounter Details Date Type Department Care Team Description 02/11/2020 Office Visit Pulmonology at [facility] Jaimee Vela, Mild intermittent asthma, un complicated; [facility] Sinusitis, unspecified chronicity, [place] [address] [phone] [place], [place] [address] Social History Tobacco Use Types [...] Sign Reading Time Taken Comments Blood Pressure 121/63 02/11/2020 7:53 AM EDT Pulse 69 02/11/2020 7:53 AM EDT Temperature 36.7 ??C (98 ??F) 02/11/2020 7:53 AM EDT Respiratory Rate - - Oxygen Saturation 97% 02/11/2020 7:53 AM EDT Inhaled Oxygen Concentration - - Weight 146 kg (321 lb 14 oz) 02/11/2020 7:53 AM EDT Height 179.5 cm (5' 10.67) 02/11/2020 7:53 AM EDT Body Mass Index 45.31 02/11/2020 7:53 AM EDT documented in this encounter Progress Notes Jaimee Vela MD - 02/11/2020 8:00 AM EDT Pulmonary outpatient consultation 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 No evidence of pulmonary involvement with dermatomyositis (normal CT 05/14, normal PFT, barium swallow, no myopathic weakness and hence low respiratory muscle weakness, PET/CT without malignancy) A. Venous insufficiency (see below) there is significant increased risk for DVT with dermatomyositis/once daily aspirin recommended as low-dose prophylaxis/continue venous stockings 2. Asthma/mild mixed phenotype (skin test positive allergy + chronic bronchiolitis on and off for 1 to 2 years + obesity + modest GERD/prior sinus x- rays with sinus disease/no previous evaluation/normal PFT 3. Mild venous insufficiency Suggest 1. No pulmonary involvement with dermatomyositis 2. Asthma therapy/eval; ; Breo Ellipta during symptomatic season, fluticasone during same, routine asthma laboratory studies, atypical organisms serologies, 1 month of empiric doxycycline pending serologies (macrolide cannot be used because of QT interval prolongation with Plaquenil)/sinus x-rays 3. Continue PPI 4. She will call next week to review atypical organisms serologies and need for antibiotics; PRN follow-up thereafter 5. 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 She is a background of obesity, mild venous insufficiency wearing support hose (no DVT history per se), but history of, bilateral knee replace ment, hypothyroidism, SVT; dermatomyositis well-controlled with Plaquenil. Recent dermatomyositis pulmonary related evaluations include normal barium swallow excluding aspiration, and PET/CT excluding occult malignancy, and normal chest CT 05/14. Referred to to exclude pulmonary disease. Pulmonary function today is normal (FEV1 95%, ratio 84%, FEF normal, vital capacity normal, DLCO 95%), though she does have a history of seasonal allergy with occasional wheezing plus some on again off again yellow sputum over the past couple of years and a mild persistent cough suggestive of a chronic bronchiolitis, often atypical organism infection. Skin test positive in the past when living in [place], + family history of asthma, and modest GERD. 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 HEENT examination unremarkable no neck vein distention chest is clear no adventitial breath sounds cardiac examination with a regular rhythm abdomen obese extremities with trace edema. Laboratory studies as mentioned.. documented in this encounter Miscellaneous Notes Addendum Note - Jaimee Vela MD - 02/11/2020 8:00 AM EDT Addended by: JAIMEE VELA on: 02/11/2020 09:30 AM Modules accepted: Orders documented in this encounter Plan of Treatment Upcoming Encounters Date Type Specialty Care Team Description 09/26/2022 Office Visit Dermatology Ambreen Burroughs MD [facility] DR SHAYY CASTILLO-DERMAT [place], [place] [address] (Wo rk) 10/02/2022 Office Visit Pulmonology Laney Calhoun [facility] Pulmonary Medicguido thornton [place], [place] [address] (Wo rk) 11/07/2022 Office Visit Ophthalmology Gifty Bernal MD [facility] er [place], [place] [address] (Wo rk) Scheduled Orders Name Type Priority Associated Diagnoses Order S chedule CBC (with Diff) Lab Routine Mild intermittent asthma, Expected: 02/11/2020, uncomplicated Expires: 08/12 documented as of this encounter Results Pulmonary Function Testing (02/11/2020 11:46 AM EDT) Narrative Josiane Boyer MD - 02/11/2020 11:46 A M EDT Josiane Boyer MD ? 02/11/2020 11:47 AM Pulmonary Function Test Interpretation FEV1 is normal. ??FVC is normal. ??The F EV1/FVC ratio is normal. Uncorrected single-breath diffusion [place] for [place] was normal. Impression: Normal spirometry and diffus ion capacity. JOSIANE BOYER MD Jaimee Vela MD PFT ORDERABLES Chlamydia antibodies (02/11/2020 9:30 AM EDT) Component Value Ref Test Analysis Performed At [facility] Method Time Signature Chlamydia [facility] Serology Test ? Result ? Flag ??Unit ?? RefValue [facility] Chlamydia [facility], [facility] ??C. pneumoniae IgG ?<1:64 ?titer ??<1:64 LABORATORY ??C. pneumoniae IgM ?<1:10 ?titer ??<1:10 ??C. trachomatis IgG ? <1:64 ?titer ??<1:64 ??C. trachomatis IgM ? <1:10 ?titer ??<1:10 ??C. psittaci IgG ?<1:64 ?titer ??<1:64 ??C. psittaci IgM ?<1:10 ?titer ??<1:10 ? ADDITIONAL INFORMATION ------ ?This test was developed and its performance characteri stics ?determined by [facility] in a manner consistent with CLIA ?requirements. This test has not been cleared or approv ed by ?the U.S. Food and Drug Administration. ?Test Performed by: ?[facility] ?[address] [id number] ?Line Manager: Jaimee Seymour M.D. Ph.D.; CLIA# [id number] Specimen Anatomical Collection Method Collection Time Receive d Time (Source) Location / / Volume Laterality Blood specimen 02/11/2020 9:30 AM 020 4:14 (specimen) EDT PM EDT Resulting Agency Comment Spec In Lab Jaimee Vela MD IMMUNOLOGY ORDERABLES Performing Organization Address City/State/[place] [address] (ABNORMAL) Mycoplasma Pneumoniae Ab IgG and IgM (02/11/2020 9:30 AM EDT) [facility] Method Time Signature M pneumo IgG Positive (A) Negative [facility] Comment: Test Performed by: [facility] [address] [place] [address] Line Manager: Jaimee Seymour M.D. Ph. D.; CLIA# [id number] M pneumo IgM Reactive (A) Negative [facility] Comment: Test Performed by: [facility] [address] [place] [address] Line Manager: Jaimee Seymour M.D. Ph. D.; CLIA# [id number] M pneumo Ab Interp SEE COMMENTS [facility] Comment: IgM result is NOT diagnostic. Confirmato ry testing by immunofluorescence antibody (IFA) is req uired and has been ordered under test Mycoplasma pneum onia Antibody, IgM by Immunofluorescence Assay (IFA), s lachelle. ADDITIONAL INFORMATIO N This test has been modified from the man ufacturer's instructions. Its performance characteri stics were determined by [facility] in a manner co nsistent with CLIA requirements. This test has not bee n cleared or approved by the U.S. Food and Drug Admin istration. Test Performed by: [facility] [address] [place] [address] Line Manager: Jaimee Seymour M.D. Ph. D.; CLIA# [id number] Specimen Anatomical Collection Method Collection Time Receive d Time (Source) Location / / Volume Laterality Blood specimen 02/11/2020 9:30 AM 020 4:14 (specimen) EDT PM EDT Resulting Agency Comment Spec In Lab Jaimee Vela MD IMMUNOLOGY ORDERABLES Performing Organization Address City/State/[place] [address] IgM (02/11/2020 9:30 AM EDT) P athologist Signature IgM 71 40 - 230 [facility] mg/dL [facility] Specimen Anatomical Collection Method Collection Time Receive d Time (Source) Location / / Volume Laterality Blood specimen 02/11/2020 9:30 AM 020 9:53 (specimen) EDT AM EDT Resulting Agency Comment Spec In Lab Jaimee Vela MD IMMUNOLOGY ORDERABLES Performing Organization Address City/[facility]/ZIP Code Phon e Number [address] IgA (02/11/2020 9:30 AM EDT) P athologist Signature IgA 374 70 - 400 [facility] mg/dL [facility] Specimen Anatomical Collection Method Collection Time Receive d Time (Source) Location / / Volume Laterality Blood specimen 02/11/2020 9:30 AM 020 9:53 (specimen) EDT AM EDT Resulting Agency Comment Spec In Lab Jaimee Vela MD IMMUNOLOGY ORDERABLES Performing Organization Address City/[facility] Code Phon e Number [address] IgG Subclasses (02/11/2020 9:30 AM EDT) Component Value Ref Test Analysis Performed At [facility] gist Range Method Time Signature IgG Subclasses [place] Test ? Result ? Flag ??Unit ?? RefValue [facility], [facility] ??Total IgG ?1180 ? mg/dL ??767 - 1590 LABORATORY ??IgG 1 ?558 ?mg/dL ??341 - 894 ??IgG 2 ?378 ?mg/dL ??171 - 632 ??IgG 3 ?93.3 ? mg/dL ??18.4 - 106.0 ??IgG 4 ?44.2 ? mg/dL ??2.4 - 121.0 ?Test Performed by: ?[facility] ?[address] [place] [address] ?Line Manager: Jaimee Seymour M.D. Ph.D.; CLIA# [id number] Specimen Anatomical Collection Method Collection Time Receive d Time (Source) Location / / Volume Laterality Blood specimen 02/11/2020 9:30 AM 020 4:14 (specimen) EDT PM EDT Resulting Agency Comment Spec In Lab Jaimee Vela MD IMMUNOLOGY ORDERABLES Performing Organization Address City/State/ZIP Code Phon e [place] [address] IgG (02/11/2020 9:30 AM EDT) athologist Signature IgG 1,120 700 - 1,600 [place] mg/dL [facility] Comment: Pediatric Reference Intervals obtained f rom the Caliper Reference Interval project. http://www.sickkids.ca/caliperp roject/index.html Specimen Anatomical Collection Method Collection Time Receive d Time (Source) Location / / Volume Laterality Blood specimen 02/11/2020 9:30 AM 020 9:53 (specimen) EDT AM EDT Resulting Agency Comment Spec In Lab Jaimee Vela MD IMMUNOLOGY ORDERABLES Performing Organization Address City/[facility]/[place] [address] Immunoglobulin E (IgE) (02/11/2020 9:30 AM EDT) athologist Signature IgE 25 <=101 kU/L [facility] Comment: Pediatric age-specific reference ranges are reflected in result ranges. Adult reference ranges: <25 kU/L ??Normal 25-100 kU/L Equivocal >100 kU/L ??Elevated Specimen Anatomical Collection Method Collection Time Receive d Time (Source) Location / / Volume Laterality Blood specimen 02/11/2020 9:30 AM 020 1:29 (specimen) EDT PM EDT Resulting Agency Comment Spec In Lab Jaimee Vela MD IMMUNOLOGY ORDERABLES Performing Organization Address City/State/[place] [address] XR Sinuses (Generic) (02/11/2020 9:11 AM EDT) [...] e number below. ? Electronically signed by: Loyda Fletcher [facility] ([phone]), at 02/11/2020 9:19 AM Narrative 02/11/2020 9:19 [...] contact e number below. Electronically signed by: Loyda Fletcher [facility] ([phone]), at 02/11/2020 9:19 AM Jaimee Vela MD IMG DX ORDERABLES documented in this encounter Visit Diagnoses Diagnosis Mild intermittent asthma, uncomplicated Unspecified asthma Mild intermittent asthma, uncomplicated Unspecified asthma Sinusitis, unspecified chronicity, unspe cified location Sinusitis, unspecified chronicity, unspe cified location documented in this encounter Care Teams Branch Administrator Relationship Specialty Start Date End Date Samantha Michelle MD PCP - General 09/14/11 [address] [place] [address] documented as of this encounter
--- OUTSIDE RECORDS SUMMARY | 2022-09-15 01:26 | XMS_ITS | Encounter Summary ---
:1955 Author Organization [place] [address] Care Team Providers Name Role Phone Samantha Michelle MD Primary Care Provider Reason for Visit Reason Comments Follow-up Dermatomyositis Encounter Details Date Type Department Care Team Description 08/04/2019 Office Visit Dermatology at [facility] rmatomyositis; Dinesh Arguello MD Irritant contact dermatitis, unspecified trigger [address] [place] [address] [facility] [place], [place] [address] Social History Tobacco Use Types Packs/Day Years Used Date Former Smoker Cigarettes 0.25 7 Quit: 02/07/19 76 Smokeless Tobacco: Never Used Alcohol Use Standard Drinks/Week Comments No 0 (1 standard drink = 0.6 oz pure alcoho l) Sex Assigned at Date Recorded Female 03/23/2021 8:16 AM EDT documented as of this encounter Progress Notes [facility] Peguero, [facility] - 08/04/2019 2:00 PM EDT DERMATOLOGY RHEUMATOLOGY CLINIC NOTE Date of service: 08/04/2019 Brandi Ruiz : 1955 Provider: Ambreen Burroughs MD Chief Complaint Patient presents with ??? Follow-up Dermatomyositis SKIN HISTORY: Skin cancer: BCC: face 1999, left arm 2000, right arm 2014 05/06/2019 Right upper arm, punch biopsy: Vacuolar [...] or drug reaction. Clinicopathologic correlation is recommended. Other: - Cystic acne - s/p ILK - Schambergs pigmented purpura Family Skin History: Melanoma: No known ?? 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 Brandi Ruiz is a 64 y.o. female, new patient to our clinic. She says her rash has overall improved on current regimen but continues to be present on her face and bilateral arms. She adds that [place] the [place], sun[place] caused the rashy areas to turn dusky purple and become raised. She used TAC ointment twice daily for several weeks but then discontinued after seeing no change. She has been on Plaquenil for3 months; after having some initial nausea, she denies side effects on Plaquenil. However, she describes having swallowing issues for 2 years, saying she feels as though not all of her food is being swallowed. She also has episodes of nausea at night and sometimes wake her from sleep. She will then have repeated episodes of vomiting. Simultaneously, she feels close to losing losingconsciousness. Her PCP has instructed her to take Zofran for this problem. She is pending further work up, including upper and lower scope, with GI in October. Additionally, she reports a new hand rash, present for two months, on the bilateral palmar surfaces.Previously tried triamcinolone without improvement. Recent issues started two months after using chlorhexidene for TKA surgery. Peeling areas hurt when in warm water. She had an episode of similar handrash in the past before being diagnosed with dermatomyositis. She denies weakness but does note pain and stiffness in her bilateral wrists and left ankle, which takes a few hours to improve. She reports right knee pain but had a right total joint replacement approximately 1 month ago. The left knee was replaced many years ago, and she is concerned that the rightknee is not healing as well as the left did. She has talked to surgeon about redness, warmth, and inflammation. Pending eye exam. Workup has included: - Biopsy consistent with interface dermatitis that is seen in connective tissue disorder - +SAE1 antibody - Aldolase and CK not elevated - ? lesions in the liver based on CT scan of chest/abdomen/pelvis - Further PET scan follow up negative for underlying malignancy - MRI of lower extremities negative for myositis , but did show a soft tissue mass MEDS: Current Outpatient Medications Medication Sig Dispense Refill ??? polyethylene glycol (MIRALAX) 17 gram Powder [...] current facility-administered medications for this visit. ADR: Ceclor [cefaclor]; Pcn [penicillins]; Phenergan [promethazine]; Preservative; Sulfite; and Vancomycin MEDICAL HISTORY: Patient Active Problem List Diagnosis Code ??? Anemia D64.9 ??? Hypothyroidism E03.9 ??? Anxiety F41.9 ??? SVT (supraventricular tachycardia) I47.1 ??? Hypothyroid E03.9 ??? History of basal cell carcinoma Z85.828 ROS General: feeling well Skin: denies other skin complaints EXAM General: NAD, pleasant, cooperative Skin: A focused skin examination of the feet, hands, extremities, chest, face, and scalp significantfor??the following: Significant skin findings: A. Erythema of nose, cheeks, forehead, and scalp. Chest clear. B. [place] scaly rash with some fissuring on the palmar surface of the hands, plantar surface of the feet. ZULAY testing of the skin scraping from hands was negative for fungal elements. ASSESSMENT/PLAN: A. Dermatomyositis - Reviewed last labs results. Negative malignancy workup with CT & PET-CT of chest abdomen and pelvis. - MRI of lower extremity negative for myositis but did show a soft tissue mass. Patient will schedule to have MRI w/ contrast, as ordered by Dr. Martin. - Continue Rx: Plaquenil 200 mg BID. - Start Rx: diclofenac - Labs today: Sed rate, CRP B. Favor irritant contact dermatitis over skin changes secondary to interface dermatitis - ZULAY testing of the skin scraping was negative for fungal elements. - Start Rx: betamethasone valerate 0.1% cream: Apply topically to affected area(s) on the fingertipstwice daily including under occlusion at night. - Otherwise, encouraged regular applications of bland emollient to hands. FOLLOW UP: Patient will call about follow up - derm clinic vs derm rheum. Instructed patient to callwith questions or concerns. Patient seen in Derm-Rheum specialty clinic in conjunction with Savi Herron MD, of Rheumatology. Please see her same-day medical note as well. I am documenting this encounter acting as the scribe for and in the presence of Dr. Burroughs: Arabella Neri CMA and Arabella Peguero CMA I performed the above scribed service and agree with the accuracy of the documentation in this encounter. Ambreen Burroughs MD [facility] cc: Samantha Michelle MD documented in this encounter Plan of Treatment Upcoming Encounters Date Type Specialty Care Team Description 09/26/2022 Office Visit Dermatology Ambreen Burroughs MD [facility] DR SHAYY CASTILLO-DERMAT BERTH[place], [place] [address] (Wo rk) 10/02/2022 Office Visit Pulmonology Laney Calhoun [facility] Pulmonary Mati thornton [place], [place] [address] (Wo rk) 11/07/2022 Office Visit Ophthalmology Gifty Bernal MD [facility] er [address] [place] 0[address] (Wo rk) documented as of this encounter Procedures Procedure Name Priority Date/Time Associated Diagnosis Comme nts C-REACTIVE Routine 08/04/2019 4:11 PM Dermatomyositis Resul ts for this PROTEIN EDT procedure are i n the results section. HC Routine 08/04/2019 4:11 PM Dermatomyositis Result s for this ESR-SEDIMENTATION EDT procedure are in RATE, BLOOD the results section. documented in this encounter Results (ABNORMAL) CRP, acute inflammation (08/04/2019 4:11 PM EDT) P athologist Signature CRP 18.4 (H) <=4.9 mg/L [facility] Specimen Anatomical Collection Method Collection Time Receive d Time (Source) Location / / Volume Laterality Blood specimen 08/04/2019 4:11 PM 019 4:15 (specimen) EDT PM EDT Resulting Agency Comment Spec In Lab Ambreen Burroughs MD CHEMISTRY ORDERABLES Performing Organization Address City/State/[place] [address] (ABNORMAL) Sedimentation rate (08/04/2019 4:11 PM EDT) P athologist Signature Sed Rate 29 (H) 0 - 20 [facility] mm/hr [facility] Specimen Anatomical Collection Method Collection Time Receive d Time (Source) Location / / Volume Laterality Blood specimen 08/04/2019 4:11 PM 019 4:15 (specimen) EDT PM EDT Resulting Agency Comment Spec In Lab Ambreen Burroughs MD HEMATOLOGY ORDERABLES Performing Organization Address City/[facility] [place] [address] documented in this encounter Visit Diagnoses Diagnosis Dermatomyositis Irritant contact dermatitis, unspecified trigger documented in this encounter Care Teams Hand Assembler Relationship Specialty Start Date End Date Samantha Michelle MD PCP - General 09/14/11 [address] [place] [address] documented as of this encounter
--- OUTSIDE RECORDS SUMMARY | 2022-09-15 01:26 | XMS_ITS | Encounter Summary ---
:1955 Author Organization [facility] [place] [address] Care Team Providers Name Role Phone Samantha Michelle MD Primary Care Provider Reason for Visit Reason Comments Procedure Shave Biopsy Encounter Details Date Type Department Care Team Description 02/11/2020 Office Visit Dermatology at [facility] Dinesh Arguello MD behavior [address] [place] [address] [facility] [place], [place] [address] Social History Tobacco Use Types Packs/Day Years Used Date Former Smoker Cigarettes 0.25 7 Quit: 02/07/19 76 Smokeless Tobacco: Never Used Alcohol Use Standard Drinks/Week Comments No 0 (1 standard drink = 0.6 oz pure alcoho l) Sex Assigned at Date Recorded Female 03/23/2021 8:16 AM EDT documented as of this encounter Progress Notes Ambreen Burroughs MD - 02/11/2020 10:15 AM EDT Images from the original note were not included. DERMATOLOGY ESTABLISHED PATIENT CLINIC NOTE Date of service: 02/11/2020 Brandi Ruiz : 1955 Provider: Ambreen Burroughs MD Chief Complaint Patient presents with ??? 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 ??Her JANETH is positive at 1-160 with a myositis antibody panel with a weakly positive anti-LORI 1??antibody. ??Her's CK has been normal. ??Her rheumatoid factor is mildly elevated at 17 with an elevated CRP Workup??has included: - Biopsy consistent with??interface??dermatitis that is seen in connective tissue disorder -??+SAE1 antibody - Aldolase and CK not elevated -?lesions in the liver based on??CT??scan of chest/abdomen/pelvis - Further PET??scan??follow up negative for underlying malignancy - MRI of lower extremities??negative for myositis??, but did show a soft tissue mass - seen by ortho10/2019 ?? - on plaquenil since ? April 2019. Tolerating well ?? 05/06/2019 Right upper arm, punch biopsy: Vacuolar interface dermatitis. Discussion:??Sections show a basket weave stratum corneum with focal parakeratosis overlying a thin epidermis. Subtle vacuolar interface change is present with few scattered dyskeratotic cells. There is associated superficial perivascular lymphohistiocytic inflammation. Papillary dermal edema and deep perivascular inflammation are not seento suggest polymorphous light eruption. Multiple deeper sections have been examined. Overall, the findings are consistent with the clinical impression of connective tissue disease, including dermatomyositis and lupus. Similar histologic changes may be seen in viral exanthem or drug reaction. Clinicopathologic correlation is recommended.? Other: - Cystic acne - s/p ILK -??Schambergs pigmented purpura? Family??Skin??History: Melanoma:??No known ?? 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 Patient Preferences: Preferred name:??Brandi Preferred contact method with results:??myD-H Detailed message including biopsy results okay?: Yes Are there any other people with whom we may discuss your care?:??N/A Preferred pharmacy:??[facility] Procedure Screening Questions: Any allergies to lidocaine or epinephrine? Allergy to epineprhine Any pacemaker or defibrillator? No HPI Brandi Kilgore Joseph is a 64 y.o. year old female, established patient last seen by me on 11/24/2019. Heretoday for a shave biopsy of lesion on the left alar crease near site of previous BCC. Patient reports lesion has gradually grown over time. Denies bleeding. MEDS: Current Outpatient Medications Medication Sig Dispense Refill ??? fluticasone furoate-vilanteroL (Breo Ellipta) 200-25 mcg/dose Disk with Device Inhale 1 puff into the lungs daily. 1 each 5 ??? fluticasone propionate (FLONASE) 50 mcg/actuation [place], Suspension 2 sprays by Each Nare route daily. 1 each 3 ??? doxycycline (VIBRAMYCIN) 100 mg Capsule Take 1 capsule by mouth 2 times daily. 60 capsule 0 ??? diclofenac EC (Voltaren) 75 mg Tablet, Delayed Release (E.C.) Take 1 tablet by mouth 2 times daily. 60 tablet 3 ??? hydroxychloroquine (PLAQUENIL) 200 mg Tablet Take 1 tablet by mouth 2 times daily. 60 tablet 3 ??? polyethylene glycol (MIRALAX) 17 [...] by mouth every morning (before breakfast). ??? gabapentin (NEURONTIN) 300 mg Capsule TK 1 C PO QD X 1 DAY THEN 1 C BID X 1 DAY THEN 1 C TID THEREAFTER ??? valACYclovir (VALTREX) 1 gram Tablet TK 1 T PO TID ??? TURMERIC ORAL Take by mouth. No current facility-administered medications for this visit. ADR: Allergies Allergen Reactions ??? Ceclor [Cefaclor] Hives ??? Pcn [Penicillins] Anaphylaxis ??? Phenergan [Promethazine] Anaphylaxis ??? Preservative Anaphylaxis Sulfites ??? Sulfite ??? Vancomycin Hives ROS General: feeling well Skin: denies other skin complaints EXAM General: NAD, pleasant, cooperative Skin: A focused skin examination of the left alar crease, significant for??the following: Significant skin findings: A. Left alar crease: 0.8 x 0.3cm scar with translucent papule within [Figure 1, Specimen A]. Figure 1. A left alar crease Photo(s) taken and charted with patient's verbal consent. ASSESSMENT/PLAN: A. Scar vs Recurrent BCC - After discussion of potential risks (scarring, bleeding, infection) and recurrence, patient agreedto proceed with shave biopsy today. - Patient denies allergy to lidocaine; reports allergy to sulfite in epinephrine. Procedure: Skin biopsy by shave technique Location: left alar crease Time: 10:15AM Discussed indications for procedure and expectations including risks and benefits. Verbal consent obtained. Skin prep with alcohol. Local anesthesia with 1% xylocaine. A sample of the lesion was removed by shave technique to the level of the dermis and submitted to Pathology. Hemostasis obtained (AlCland/or electrocautery). There were no complications; the pt. tolerated the procedure well. The woundwas dressed. Post-procedure expectations, wound care and activity restrictions were reviewed. Follow-up based on pathology results. Follow up: Based on pathology results, sooner if needed. Instructed to call with questions or concerns. I am documenting this encounter acting as the scribe for and in the presence of Dr. Burroughs: Sylvia Garcia and Sylvia Garcia I performed the above scribed service and agree with the accuracy of the documentation in this encounter. Ambreen Bruroughs MD Trolley Car Mechanic of Dermatology, Department of Surgery [facility] Ambreen Burroughs MD - 02/11/2020 10:15 AM EDT EP, Biopsy shows BCC, recommend Mohs. Non urgent. Please notify patient and refer for Mohs. Arabella Peguero CCMA - 02/11/2020 10:15 AM EDT I reviewed the biopsy results and Dr. Burroughs's recommended treatment plan with Brandi. Site: Left alar crease Result: BCC Plan: Mohs After discussing diagnosis and proposed procedure in detail (including indications, cure rates, expected post-op outcome), Brandi agrees to proceed with Mohs. Patient is aware that Dr. Weinstein is actively reviewing and prioritizing cases due to COVID-19. I encouraged her to contact the clinic with questions. She denies problems or concerns since the biopsy and is healing well. Mirlande, please contact to schedule Mohs. documented in this encounter Plan of Treatment Upcoming Encounters Date Type Specialty Care Team Description 09/26/2022 Office Visit Dermatology Ambreen Burroughs MD [facility] DR SHAYY [place], [place] [address] (Wo rk) 10/02/2022 Office Visit Pulmonology Laney Calhoun M D [facility] Pulmonary Medicguido [facility] [place], [place] [address] (Wo rk) 11/07/2022 Office Visit Ophthalmology Gifty Bernal MD [facility] [place], [place] [address] (Wo rk) documented as of this encounter Procedures Procedure Name Priority Date/Time Associated Diagnosis Comme nts SPECIMEN TO Routine 02/11/2020 10:35 AM Neoplasm of Results for this PATHOLOGY EDT uncertain behavior procedure are in the results section. SURGICAL PATHOLOGY Routine 02/11/2020 10:15 AM Re sults for this REPORT EDT procedure are i n the results section. documented in this encounter Results Specimen to Pathology (02/11/2020 10:35 AM EDT) Specimen Anatomical Collection Method Collection Time Receive d Time (Source) Location / / Volume Laterality AP Specimen 02/11/2020 10:35 02/11/2020 3:25 AM EDT PM EDT Narrative [facility] - 02/11/2020 3:26 PM EDT Specimen requisition ordered. ??Separate Pathology report to follow Resulting Agency Comment Spec In Lab Ambreen Burroughs MD PATHOLOGY/CYTOLOGY ORDERABLE S Performing Organization Address City/State/[place] [address] [facility] [address] Surgical Pathology Report (02/11/2020 10:15 AM EDT) Component Value Ref Test Analysis Performed At [facility] gist Range Method Time Signature Surgical [id number] ? Location: [facility] Report The signing pathologist has (i) examined the relevant preparation(s) for the [facility] specimen(s) and (ii) rendered or confirmed the diagnosis(es) . [facility] . ?Surgic al Pathology DIAGNOSIS Skin, left alar crease, shave ?? 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 of Pathology, [place], [place] CLINICAL INFORMATION Specimen Submitted: A - Skin, left alar crease, shave (1) Clinical History and Diagnosis: 0.8 x 0.3 cm scar with translucent papule within; scar vs re current BCC SPECIMEN PROCESSING A - Labeled/Fixative: Left alar crease, formalin. Quantity/Size: ??Single, 0.6 x 0.3 x 0.1 cm. Tissue Description: Shave of monsivais skin. Sections/Processing: Inked, bisected and entirely submitted in 1 cassette labeled A1. ??lizett Specimen (Source) Anatomical Collection Method Collection Time Re ceived Time Location / / Volume Laterality 02/11/2020 10:15 AM EDT Ambreen Burroughs MD PATHOLOGY/CYTOLOGY ORDERABLE S Performing Organization Address City/State/[place] [address] documented in this encounter Visit Diagnoses Diagnosis Neoplasm of uncertain behavior Neoplasm of uncertain behavior, site uns pecified documented in this encounter Care Teams Coremaker Apprentice Relationship Specialty Start Date End Date Samantha Michelle MD PCP - General 09/14/11 [address] [place] [address] documented as of this encounter
--- OUTSIDE RECORDS SUMMARY | 2022-09-15 01:27 | XMS_ITS | Encounter Summary ---
:1955 Author Organization [facility] [place] [address] Care Team Providers Name Role Phone Samantha Michelle MD Primary Care Provider Encounter Details Date Type Department Care Team Description 02/24/2019 Hospital Encounter XRay at [facility] Cuba Martin, Pain in both hands [address] [place] [address] [facility] [address] [place] [phone] [place] [address] Social History Tobacco Use Types Packs/Day Years [...] Sig Dispensed Refills Start Date End Date levothyroxine (SYNTHROID) daily. 4 02/18/2019 125 mcg Tablet escitalopram (LEXAPRO) 20 Take 20 mg by mouth 0 mg tablet daily. esomeprazole (NEXIUM) 40 Take 40 mg by mouth 0 mg capsule every morning (before breakfast). metoprolol succinate 25 Take 25 mg by mouth 0 04/16/2019 mg capsule,sprinkle,ER daily. 24hr diclofenac (VOLTAREN) 1 % Apply 2 g topically 100 g 5 0 02/13/2019 07/15/2019 GelIndications: Pain in 3 times daily as both hands, Chronic pain needed (knees). of both knees levothyroxine (SYNTHROID) Take 125 mcg by 0 04/16/2019 112 mcg tablet mouth daily. acetaminophen (TYLENOL) Take 1,000 mg by 0 02/28/2019 500 mg tablet mouth every 6 hours as needed. documented as of this encounter Plan of Treatment Upcoming Encounters Date Type Specialty Care Team Description 09/26/2022 Office Visit Dermatology Ambreen Burroughs MD [facility] [address]-[facility]MAT [place], [place] [address] (Wo rk) 10/02/2022 Office Visit Pulmonology Laney Calhoun M D [facility] Pulmonary Medici hillary [place], [place] [address] (Wo rk) 11/07/2022 Office Visit Ophthalmology Gifty Bernal MD [facility] [place], [place] [address] (Wo rk) documented as of this encounter Procedures Procedure Name Priority Date/Time Associated Diagnosis Comme nts XR HAND MIN 3 VIEWS Routine 02/24/2019 11:19 AM Pain in both h ands Results for this BILAT EDT procedure are i n the results section. documented in this encounter Results XR Hand Min 3 views Bilat (Generic) (02/24/2019 11:19 AM EDT) Anatomical Region Laterality Modality Hand Bilateral Digital Radiography Specimen (Source) Anatomical Location Collection Method / Collectio n Time Received Time / Laterality Volume Impressions 02/24/2019 3:15 PM EDT Constellation of radiographic findings most consistent with multifocal osteoarthropathy, most pronounced in the bilateral first carpometacarpal joints, but also present at multiple bilateral f nena DIP joints. Thank you for letting us participate in the care of this patient. For questions regarding this report, please contact e number below. ? Narrative 02/24/2019 3:15 PM EDT EXAMINATION: XR HAND MIN 3 VIEWS BILAT (GENERIC) CLINICAL HISTORY: inflammatory arthropat hy TECHNIQUE: 4 views BILATERAL hands. PA, oblique, la teral, and ball-catcher's views of bilateral hands. COMPARISON: None FINDINGS: No focal soft tissue swelling. There are small periarticular calcific densities adjacent to the bilateral first carpomet acarpal joints in the context of nonuniform joint space narrowing, subcho ndral sclerosis and marginal osteophyte formation of the posterior joints and to a lesser degree the bilateral triscaphe joints, most compatible with osteoarthro jung with degenerative periarticular calcifications. No definite osseous eros ions. No periostitis or ankylosis. No acro osteolysis. There is joint space na rrowing and marginal osteophyte formation of the bilateral thumb interph alangeal joint and multiple finger DIP joints, including the bilateral index fi nger DIP joints, the right ring finger DIP joint and right small finger DIP eduin nt. Procedure Note Karmen Keys MD - 02/24/2019Formattin g of this note might be different from the original. EXAMINATION: XR HAND MIN 3 VIEWS BILAT ( GENERIC) CLINICAL HISTORY: inflammatory arthropat hy TECHNIQUE: 4 views BILATERAL hands. PA, oblique, la teral, and ball-catcher's views of bilateral hands. COMPARISON: None FINDINGS: No focal soft tissue swelling. There are small periarticular calcific densities adjacent to the bilateral first carpomet acarpal joints in the context of nonuniform joint space narrowing, subcho ndral sclerosis and marginal osteophyte formation of the posterior joints and to a lesser degree the bilateral triscaphe joints, most compatible with osteoarthro jung with degenerative periarticular calcifications. No definite osseous eros ions. No periostitis or ankylosis. No acro osteolysis. There is joint space na rrowing and marginal osteophyte formation of the bilateral thumb interph alangeal joint and multiple finger DIP joints, including the bilateral index fi nger DIP joints, the right ring finger DIP joint and right small finger DIP eduin nt. IMPRESSION Constellation of radiographic findings m ost consistent with multifocal osteoarthropathy, most pronounced in the bilateral first carpometacarpal joints, but also present at multiple bilateral f nena DIP joints. Thank you for letting us participate in the care of this patient. For questions regarding this report, please contact e number below. Cuba Martin MD IMG DX ORDERABLES documented in this encounter Visit Diagnoses Diagnosis Pain in both hands documented in this encounter Care Teams Steam Press Operator Relationship Specialty Start Date End Date Samantha Michelle MD PCP - General 09/14/11 [address] [place] [address] documented as of this encounter
--- OUTSIDE RECORDS SUMMARY | 2022-09-15 01:27 | XMS_ITS | Encounter Summary ---
:1955 Author Organization [facility] [place] [address] Care Team Providers Name Role Phone Samantha Michelle MD Primary Care Provider Reason for Referral Diagnostic Test (Routine) - Closed Specialty Diagnoses / Procedures Referred By Contact Refer red To Contact Radiology Diagnoses Inflammatory arthropathy Dermatomyositis Cuba Martin MD [facility] Rad Mri Procedures MRI Lower Extremity Non Joint wo Contrast [facility] [place] [address] [place] [address] Referral ID Status Reason Start Date Expiration Date Visits V isits Requested Authorized [id number] Closed Specialty 05/13/2019 05/12/2020 1 1 Service Requested Encounter Details Date Type Department Care Team Description 05/13/2019 Orders Only Rhe[place]ology [place] [facility] [place] Martin, Inflammatory arthropathy; [facility] [place] [address] [address] [place] [address] Social History Tobacco Use Types Packs/Day Years [...] Team Description 09/26/2022 Office Visit Dermatology Ambreen Burorughs MD [facility] [address]MAT [place], [place] [address] (Wo rk) 10/02/2022 Office Visit Pulmonology Laney Calhoun M D [facility] Pulmonary Medici hillary [place], [place] [address] (Wo rk) 11/07/2022 Office Visit Ophthalmology Gifty Bernal MD [facility] [place], [place] [address] (Wo rk) documented as of this encounter Results MRI Lower Extremity Non Joint wo Contrast (06/02/2019 7:56 AM EDT) Anatomical Region Laterality Modality Hip, Thigh, Knee, Leg, Ankle, Foot Magne tic Resonance Specimen (Source) Anatomical Location Collection Method / Collectio n Time Received Time / Laterality Volume Impressions 06/02/2019 11:46 AM EDT 1. ??No findings of myositis. 2. ??Tubular septated bright T2 focus in right vastus lateralis of the upper thigh most likely represent a cyst or ga nglion but consider supplementary MR with and without contrast to confirm. 3. ??Varicosities in the right anterior thigh and bilateral medial calfs are larger on the right 4. ??Right knee osteoarthropathy with sy novitis represented by debris and hypertrophic synovium in a moderate size effusion. 5. ??Lobular heterogeneous uterus that i s not completely characterized. Consider pelvic ultrasound, as suggested on PET/C T. Thank you for letting us participate in the care of this patient. For questions regarding this report, please contact e number below. ? Narrative 06/02/2019 11:46 AM EDT EXAMINATION: MRI LOWER EXTREMITY NON JOINT WO CONTRAST CLINICAL HISTORY: eval for myositis Righ t lower extremity - new diagnosis of dermatomysitis-, ,entered by ordering se rvice COMPARISON: None TECHNIQUE: Noncontrast MRI of bilateral thigh and calves was performed. FINDINGS: OSSEOUS STRUCTURES: No fractures seen. Normal marrow signal. JOINTS: 1. ??Right knee -moderate to large effus ion containing filiform hypointense markings, series 19 image 11 represents synovitis. There is diffuse cartilage loss in both medial and lateral compartm ents with minimal subchondral marrow signal alteration. 2. ??Left knee- total knee arthroplasty with artifacts obscuring evaluation of soft tissue and bone detail. 3. ??Hip joints-not included in entirety . 4. ??Ankle joint-no large effusion. SOFT TISSUES: 1. ??Varicosities:Bilateral medial varic osities in calves, more numerous around the right knee and right ankle. Large ca liber varicosities in the right anterior thigh. 2. ??Bright T2 signal focus: a well-circ umscribed septated homogeneous dark T1 and bright T2 focus, ??16 Width; 13 AP; 62 Length (in mm), located in the vastus lateralis muscle, series 100 image 23 re sembles a cyst or ganglion. There is no perilesional edema. Consider supplementa ry MR with and without contrast to confirm if indicated. MUSCLES: No findings of myositis. The muscles of bilateral thigh and calfs are symmetric in size and have normal muscle signal. TENDONS: No gross tendon interruption. SOFT TISSUES OF PELVIS: heterogeneous uterus likely fibroid uter us but is incompletely characterized. There ??are sigmoid diverticulosis. Procedure Note Loyda Fletcher MD - 06/02/2019Formatt ing of this note might be different from the original. EXAMINATION: MRI LOWER EXTREMITY NON TARA NT WO CONTRAST CLINICAL HISTORY: eval for myositis Righ t lower extremity - new diagnosis of dermatomysitis-, ,entered by ordering se rvice COMPARISON: None TECHNIQUE: Noncontrast MRI of bilateral thigh and calves was performed. FINDINGS: OSSEOUS STRUCTURES: No fractures seen. Normal marrow signal. JOINTS: 1. Right knee -moderate to large effusio n containing filiform hypointense markings, series 19 image 11 represents synovitis. There is diffuse cartilage loss in both medial and lateral compartm ents with minimal subchondral marrow signal alteration. 2. Left knee- total knee arthroplasty wi th artifacts obscuring evaluation of soft tissue and bone detail. 3. Hip joints-not included in entirety. 4. Ankle joint-no large effusion. SOFT TISSUES: 1. Varicosities:Bilateral medial varicos ities in calves, more numerous around the right knee and right ankle. Large ca liber varicosities in the right anterior thigh. 2. Bright T2 signal focus: a well-circum scribed septated homogeneous dark T1 and bright T2 focus, 16 Width; 13 AP; 62 Length (in mm), located in the vastus lateralis muscle, series 100 image 23 re sembles a cyst or ganglion. There is no perilesional edema. Consider supplementa ry MR with and without contrast to confirm if indicated. MUSCLES: No findings of myositis. The muscles of bilateral thigh and calfs are symmetric in size and have normal muscle signal. TENDONS: No gross tendon interruption. SOFT TISSUES OF PELVIS: heterogeneous uterus likely fibroid uter us but is incompletely characterized. There are sigmoid diverticulosis. IMPRESSION 1. No findings of myositis. 2. Tubular septated bright T2 focus in r ight vastus lateralis of the upper thigh most likely represent a cyst or ga nglion but consider supplementary MR with and without contrast to confirm. 3. Varicosities in the right anterior th igh and bilateral medial calfs are larger on the right 4. Right knee osteoarthropathy with syno vitis represented by debris and hypertrophic synovium in a moderate size effusion. 5. Lobular heterogeneous uterus that is not completely characterized. Consider pelvic ultrasound, as suggested on PET/C T. Thank you for letting us participate in the care of this patient. For questions regarding this report, please contact e number below. Electronically signed by: Loyda Fletcher [facility] ([phone]), at 06/02/2019 11:46 AM Cuba Martin MD IMG MRI ORDERABLES documented in this encounter Visit Diagnoses Diagnosis Inflammatory arthropathy Arthropathy, unspecified, site unspecifi ed Dermatomyositis Inflammatory arthropathy Arthropathy, unspecified, site unspecifi ed Dermatomyositis documented in this encounter Care Teams Medical Field Representative Relationship Specialty Start Date End Date Samantha Michelle MD PCP - General 09/14/11 [address] [place] [address] documented as of this encounter
--- OUTSIDE RECORDS SUMMARY | 2022-09-15 01:27 | XMS_ITS | Encounter Summary ---
:1955 Author Organization [facility] [place] [address] Care Team Providers Name Role Phone Samantha Michelle MD Primary Care Provider Encounter Details Date Type Department Care Team Description 05/10/[address] [facility] Fidel Alvarez MD [address] [facility] [place] [address] [facility] [phone] [place], [place] [address] (Wo rk) Social History Tobacco Use Types Packs/Day Years Used Date Former Smoker Cigarettes 0.25 7 Quit: 02/07/19 76 Smokeless Tobacco: Never Used Alcohol Use Standard Drinks/Week Comments No 0 (1 standard drink = 0.6 oz pure alcoho l) Sex Assigned at Date Recorded Female 03/23/2021 8:16 AM EDT documented as of this encounter Miscellaneous Notes Addendum Note - Fidel Alvarez - 05/12/2019 12:16 PM EDT Addended by: FIDEL ALVAREZ on: 05/12/2019 12:16 PM Modules accepted: Orders Telephone Encounter - Fidel Alvarez - 05/12/2019 12:09 PM EDT Called pt back to relay biopsy results and plan: Called pt to discuss the below biopsy results: ?? Surgical Pathology DIAGNOSIS Skin, right upper arm, punch biopsy: - Vacuolar interface dermatitis ?? (see discussion) Electronically signed by: ??Elier FREEMAN, PhD, Mikki Verified: ??05/09/2019 ?Dermatopathologist Performed at: ??-[facility], [place], [place] DISCUSSION Sections show a basket weave stratum corneum with focal parakeratosis overlying ??a thin epidermis. Subtle vacuolar interface change is present with few scattered ??dyskeratotic cells. There is associated superficial perivascular lymphohistiocytic ??inflammation. Papillary dermal edema and deep perivascular inflammation are not ??seen to suggest polymorphous light eruption. ?Multiple deeper sections have been ??examined. Overall, the findings are consistent with the clinical impression of connective ??tissue disease, including dermatomyositis and lupus. Similar histologic changes ??may be seen in viral exanthem or drug reaction. ?Clinicopathologic correlation is ??recommended. ? Assessment/Plan: -Biopsy consistent with interphase dermatitis that is seen in connective tissue disorder. Clinical presentation more consistent with skin findings of dermatomyositis and in combination with positive SAE1 antibody rase this consideration. -Prior aldolase and CK negative and additional connective tissue lab workup from Rheumatology negative Plan: -Daily photoprotection with SPF 50 -Obtain a CT of chest, abdomen and Pelvis to r/o potential underlying associated malignancy, which can be present in 30-40% of pts. - Start Hydroxychloroquine 200mg BID and obtain a baseline eye exam. 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 Will have results faxed -Start Triamcinolone 0.1% ointment BID to affected areas on arms for overlying dermatitis Return to clinic: 1 month to reassess or sooner PND response and CT imaging results ?? Telephone Encounter - Fidel Alvarez - 05/10/2019 1:13 PM EDT DERMATOLOGY TELEPHONE NOTE Brandi Ruiz 05/10/2019 [id number] Caller: Brandi Ruiz Reason for call: Discuss biopsy results Called pt to discuss the below biopsy results: Surgical Pathology DIAGNOSIS Skin, right upper arm, punch biopsy: - Vacuolar interface dermatitis ?? (see discussion) Electronically signed by: ??Elier FREEMAN, PhD, Mikki Verified: ??05/09/2019 ?Dermatopathologist Performed at: ??-[facility] [place], [place], [place] DISCUSSION Sections show a basket weave stratum corneum with focal parakeratosis overlying ??a thin epidermis. Subtle vacuolar interface change is present with few scattered ??dyskeratotic cells. There is associated superficial perivascular lymphohistiocytic ??inflammation. Papillary dermal edema and deep perivascular inflammation are not ??seen to suggest polymorphous light eruption. ?Multiple deeper sections have been ??examined. Overall, the findings are consistent with the clinical impression of connective ??tissue disease, including dermatomyositis and lupus. Similar histologic changes ??may be seen in viral exanthem or drug reaction. ?Clinicopathologic correlation is ??recommended. Assessment/Plan: -Biopsy consistent with interphase dermatitis that is seen in connective tissue disorder. Clinical presentation more consistent with skin findings of dermatomyositis and in combination with positive SAE1 antibody rase this consideration. -Prior aldolase and CK negative and additional connective tissue lab workup from Rheumatology negative Plan: -Daily photoprotection with SPF 50 -Obtain a CT of chest, abdomen and Pelvis to r/o potential underlying associated malignancy, which can be present in 30-40% of pts. - Start Hydroxychloroquine 200mg BID and obtain a baseline eye exam -Start Triamcinolone 0.1% ointment BID to affected areas on arms for overlying dermatitis -Message left for patient to call back to obtain diagnosis and treatment recommendations . Fidel Alvarez MD Dermatology Resident documented in this encounter Plan of Treatment Upcoming Encounters Date Type Specialty Care Team Description 09/26/2022 Office Visit Dermatology Ambreen Burroughs MD [facility] DR SHAYY CASTILLO-DERMAT [place], [place] [address] (Wo rk) 10/02/2022 Office Visit Pulmonology Laney Calhoun M D [facility] Pulmonary Medici [place], [place] [address] (Wo rk) 11/07/2022 Office Visit Ophthalmology Gifty Bernal MD [facility] [place], [place] [address] (Wo rk) documented as of this encounter Visit Diagnoses Diagnosis Dermatomyositis documented in this encounter Care Teams Order Packer Or Packager Relationship Specialty Start Date End Date Samantha Michelle MD PCP - General 09/14/11 [address] [place] [address] documented as of this encounter
--- OUTSIDE RECORDS SUMMARY | 2022-09-15 01:27 | XMS_ITS | Encounter Summary ---
:1955 Author Organization [facility] [place] [address] Care Team Providers Name Role Phone Samantha Michelle MD Primary Care Provider Reason for Visit Reason Comments Anemia Encounter Details Date Type Department Care Team Description 09/23/2013 Follow-Up Hematology Oncology at [facility] , Jaden Lorenz MD Anemia [address] [address] [place], [place] [phone] Social History Tobacco Use Types Packs/Day Years [...] Sign Reading Time Taken Comments Blood Pressure 141/74 09/23/2013 1:58 PM EDT Pulse 63 09/23/2013 1:58 PM EDT Temperature 36.5 ??C (97.7 ??F) 09/23/2013 1:58 PM EDT Respiratory Rate 16 09/23/2013 1:58 PM EDT Oxygen Saturation 96% 09/23/2013 1:58 PM EDT Inhaled Oxygen Concentration - - Weight 141 kg (310 lb 13.6 oz) 09/23/2013 1:58 PM EDT Height 175.3 cm (5' 9.02) 09/23/2013 1:58 PM EDT Body Mass Index 45.88 09/23/2013 1:58 PM EDT documented in this encounter Progress Notes Jaden Dalton MD - 09/23/2013 2:45 PM EDT Diagnosis: Iron deficiency anemia Subjective: Brandi comes in today for followup on her iron deficiency anemia. She completed some IV Venofer. Since then however she is gotten her energy back and notes she's felt completely normal and fine without difficulties or problems. Review of Systems Constitutional: Negative for fever, chills, activity change,fatigue and no unexpected weight change. HENT: Negative for sore throat, mouth sores and trouble swallowing. Eyes: Negative. Respiratory: Negative for cough, shortness of breath and wheezing. Cardiovascular: Negative for chest pain, palpitations and leg swelling. Gastrointestinal: Negative for nausea, vomiting, abdominal pain, diarrhea, constipation and abdominal distention. Genitourinary: Negative for dysuria and difficulty urinating. Musculoskeletal: Negative. Skin: Negative. Neurological: Negative. Hematological: Negative for adenopathy. Head: Normocephalic, without obvious abnormality, atraumatic Eyes: PERRL, conjunctiva/corneas clear, EOM's intact, fundi benign, both eyes Ears: Normal TM's and external ear canals, both ears Nose: Nares normal, septum midline, mucosa normal, no drainage or sinus tenderness Throat: Lips, mucosa, and tongue normal; teeth and gums normal Neck: Supple, symmetrical, trachea midline, no adenopathy, thyroid: not enlarged, symmetric, no tenderness/mass/nodules, no carotid bruit or JVD Back: Symmetric, no curvature, ROM normal, no CVA tenderness Lungs: Clear to auscultation bilaterally, respirations unlabored Chest Wall: No tenderness or deformity Heart: Regular rate and rhythm, S1, S2 normal, no murmur, rub or gallop Abdomen: Soft, non-tender, bowel sounds active all four quadrants, no masses, no organomegaly Extremities: Extremities normal, atraumatic, no cyanosis or edema Pulses: 2+ and symmetric Skin: Skin color, texture, turgor normal, no rashes or lesions Lymph nodes: Cervical, supraclavicular, and axillary nodes normal Neurologic: Normal Blood counts today show a ferritin of 34. She'll set up for a T4 of 1.02 and a TSH of 0.34. CBC has normalized with a white count of 10.63 hemoglobin 12.6 mean cell volume is up to normal at 81-1/2 andplatelet count is 268 Assessment/Plan: Brandi Has resolved her iron deficiency anemia and now has a normal mean cell volume. She still has abit of research iron as well. In this regard she may likely be fine for years to come. She does see her doctor every 6 months for thyroid checks and will get CBCs at that time. If she again develops anemia we would be glad to see her back for further Venofer. Otherwise we'll see her on a when necessary basis. documented in this encounter Plan of Treatment Upcoming Encounters Date Type Specialty Care Team Description 09/26/2022 Office Visit Dermatology Ambreen Burroughs MD [facility] DR [address]-DERMAT [place], [place] [address] (Wo rk) 10/02/2022 Office Visit Pulmonology Laney Calhoun M D [facility] Pulmonary Medicguido [place], [place] [address] (Wo rk) 11/07/2022 Office Visit Ophthalmology Gifty Bernal MD [facility] [place], [place] [address] (Wo rk) documented as of this encounter Visit Diagnoses Diagnosis Anemia Anemia, unspecified documented in this encounter Care Teams Bloom Conveyor Operator Relationship Specialty Start Date End Date Samantha Michelle MD PCP - General 09/14/11 [address] [place] [address] documented as of this encounter
--- OUTSIDE RECORDS SUMMARY | 2022-09-15 01:27 | XMS_ITS | Encounter Summary ---
:1955 Author Organization [facility] [place] [address] Care Team Providers Name Role Phone Samantha Michelle MD Primary Care Provider Encounter Details Date Type Department Care Team Description 02/24/2019 Hospital Encounter XRay at [facility] Cuba Martin, Chronic pain of both [address] [place] [address] Dr FREEMAN [facility] [id number] [place] [phone] [place] [address] Social History Tobacco Use Types Packs/Day Years [...] Burroughs MD [facility] [address]-DERMAT [place], [place] [address] (Wo rk) 10/02/2022 Office Visit Pulmonology Laney Calhoun M D [facility] Pulmonary Medici hillary [place], [place] [address] (Wo rk) 11/07/2022 Office Visit Ophthalmology Gifty Bernal MD [facility] [place], [place] [address] (Wo rk) documented as of this encounter Procedures Procedure Name Priority Date/Time Associated Diagnosis Comme nts XR KNEE AP LAT Routine 02/24/2019 11:20 AM Chronic pain of bot h Results for this AXIAL PATELLA BILAT EDT knees procedur e are in the results section. documented in this encounter Results XR Knee 3 Views Bilat (02/24/2019 11:20 AM EDT) Anatomical Region Laterality Modality Knee Bilateral Digital Radiography Specimen (Source) Anatomical Location Collection Method / Collectio n Time Received Time / Laterality Volume Impressions 02/24/2019 12:54 PM EDT Tricompartment osteoarthropathy identified in the right knee with a suprapatellar effusion. Left total knee arthroplasty in good pos itioning without complication. Thank you for letting us participate in the care of this patient. For questions regarding this report, please contact e number below. ? Narrative 02/24/2019 12:54 PM EDT EXAMINATION: XR KNEE 3 VIEWS BILAT CLINICAL HISTORY: knee pain TECHNIQUE: 4 views BILATERAL knee COMPARISON: Previous examination 10/30/2011 FINDINGS: There is a total knee arthroplasty on th e left. The femoral and tibial components are in good alignment. There is no evidence of a periprosthetic fracture or loosening. Calcifications or ossifications are identified in the medial joint line and posteriorly. The right knee demonstrates significant tricompartment osteoarthropathy, most pronounced in the medial tibiofemoral ricarda int with subchondral sclerosis, joint space narrowing and productive bony form ation. There is a lateral patellar tilt on the right. There is a right suprapate llar effusion. Procedure Note Ivan Robertson MD - 02/24/2019Forma tting of this note might be different from the original. EXAMINATION: XR KNEE 3 VIEWS BILAT CLINICAL HISTORY: knee pain TECHNIQUE: 4 views BILATERAL knee COMPARISON: Previous examination 10/30/2011 FINDINGS: There is a total knee arthroplasty on th e left. The femoral and tibial components are in good alignment. There is no evidence of a periprosthetic fracture or loosening. Calcifications or ossifications are identified in the medial joint line and posteriorly. The right knee demonstrates significant tricompartment osteoarthropathy, most pronounced in the medial tibiofemoral ricarda int with subchondral sclerosis, joint space narrowing and productive bony form ation. There is a lateral patellar tilt on the right. There is a right suprapate llar effusion. IMPRESSION Tricompartment osteoarthropathy identifi ed in the right knee with a suprapatellar effusion. Left total knee arthroplasty in good pos itioning without complication. Thank you for letting us participate in the care of this patient. For questions regarding this report, please contact [facility] number below. Cuba Martin MD IMG DX ORDERABLES documented in this encounter Visit Diagnoses Diagnosis Chronic pain of both knees documented in this encounter Care Teams Furnace Stock Inspector Relationship Specialty Start Date End Date Samantha Michelle MD PCP - General 09/14/11 [address] [place] [address] documented as of this encounter
--- OUTSIDE RECORDS SUMMARY | 2022-09-15 01:27 | XMS_ITS | Encounter Summary ---
:1955 Author Organization [facility] Address [address] [place] [address] Care Team Providers Name Role Phone Samantha Michelle MD Primary Care Provider Encounter Details Date Type Department Care Team Description 02/24/2019 Hospital Encounter XRay at [facility] [place] Martin, Rash; [address] FREEMAN Inflammatory arthropathy; [place], [place] [facility] Arthralgia, uns pecified joint; [id number] Center Myalgia; [phone] [place], [place] Positive JANETH (a ntinuclear antibody); [address] Polyarthritis with positive rheumatoid f actor; [phone] Pain in both vera nds; (Work) Chronic pain of both knees; [phone] Pain in both fe et; (Fax) Chronic cough Social History Tobacco Use Types Packs/Day Years [...] [facility] DR SHAYY CASTILLO-DERMAT [place], [place] [address] (Wo rk) 10/02/2022 Office Visit Pulmonology Laney Calhoun M D [facility] Pulmonary Medicguido thornton [place], [place] [address] (Wo rk) 11/07/2022 Office Visit Ophthalmology Gifty Bernal MD [facility] [place], [place] [address] (Wo rk) documented as of this encounter Procedures Procedure Name Priority Date/Time Associated Diagnosis Comme nts XR CHEST PA AND Routine 02/24/2019 11:19 AM Rash Results for this LATERAL EDT Inflammatory procedure are i n arthropathy the results Arthralgia, section. unspecified join t Myalgia Positive JANETH (antinuclear antibody) Polyarthritis with positive rheumatoid factor Pain in both lynn ds Chronic pain of both knees Pain in both fee t Chronic cough documented in this encounter Results XR Chest PA & Lateral (Generic) (02/24/2019 11:19 AM EDT) Anatomical Region Laterality Modality Chest N/A Digital Radiography Specimen (Source) Anatomical Location Collection Method / Collectio n Time Received Time / Laterality Volume Impressions 02/24/2019 11:26 AM EDT No active cardiopulmonary pathology identified. Thank you for letting us participate in the care of this patient. For questions regarding this report, please contact e number below. ? Narrative 02/24/2019 11:26 AM EDT EXAMINATION: XR CHEST PA AND LATERAL (GENERIC) CLINICAL HISTORY: cough TECHNIQUE: PA and lateral views of the c hest. COMPARISON: 09/27/2017. FINDINGS: The lungs appear clear. The ca rdiomediastinal silhouette, lawrence, pulmonary vessels, and pleura are within normal limits. No interval osseous findings are seen. Right upper quadrant abdominal surgical clips, consistent with prior cholecystectomy, as before. Procedure Note Sanna Blake MD - 02/24/2019Formatt ing of this note might be different from the original. EXAMINATION: XR CHEST PA AND LATERAL (GE NERIC) CLINICAL HISTORY: cough TECHNIQUE: PA and lateral views of the c hest. COMPARISON: 09/27/2017. FINDINGS: The lungs appear clear. The ca rdiomediastinal silhouette, lawrence, pulmonary vessels, and pleura are within normal limits. No interval osseous findings are seen. Right upper quadrant abdominal surgical clips, consistent with prior cholecystectomy, as before. IMPRESSION No active cardiopulmonary pathology iden tified. Thank you for letting us participate in [...] feet Pain in limb Chronic cough Cough documented in this encounter Care Teams Reduction Plant Supervisor Relationship Specialty Start Date End Date Samantha Michelle MD PCP - General 09/14/11 [address] [place] [address] documented as of this encounter
--- OUTSIDE RECORDS SUMMARY | 2022-09-15 01:27 | XMS_ITS | Encounter Summary ---
:1955 Author Organization [facility] [place] [address] Care Team Providers Name Role Phone Samantha Michelle MD Primary Care Provider Encounter Details Date Type Department Care Team Description 06/27/2019 Telephone Pulmonology at [facility] [place] [place] [address] Social History Tobacco Use Types Packs/Day Years Used Date Former Smoker Cigarettes 0.25 7 Quit: 02/07/19 76 Smokeless Tobacco: Never Used Alcohol Use Standard Drinks/Week Comments No 0 (1 standard drink = 0.6 oz pure alcoho l) Sex Assigned at Date Recorded Female 03/23/2021 8:16 AM EDT documented as of this encounter Miscellaneous Notes Telephone Encounter - Gr[employer] Peters II - 06/27/2019 10:26 AM EDT Called to reschedule bumped appt. Rescheduled to 09/15 documented in this encounter Plan of Treatment Upcoming Encounters Date Type Specialty Care Team Description 09/26/2022 Office Visit Dermatology Ambreen Burroughs MD [facility] DR SHAYY CASTILLO-DERMAT [place], [place] [address] (Wo rk) 10/02/2022 Office Visit Pulmonology Laney Calhoun M D [facility] Pulmonary Medicguido [place], [place] [address] (Wo rk) 11/07/2022 Office Visit Ophthalmology Gifty Bernal MD [facility] [place], [place] [address] (Wo rk) documented as of this encounter Visit Diagnoses Not on filedocumented in this encounter Care Teams Publications Editor Relationship Specialty Start Date End Date Samantha Michelle MD PCP - General 09/14/11 [address] [place] [address] documented as of this encounter
--- OUTSIDE RECORDS SUMMARY | 2022-09-15 01:27 | XMS_ITS | Encounter Summary ---
:1955 Author Organization [facility] [place] [address] Care Team Providers Name Role Phone Samantha Michelle MD Primary Care Provider Reason for Visit Reason Comments Follow-up Encounter Details Date Type Department Care Team Description 06/02/2019 Office Visit Dermatology at [facility] Fidel Clifton N odulocystic acne; Dinesh FREEMAN Dermatomyositis [address] [place] [address] [facility] [place], [place] [address] Social History Tobacco Use Types Packs/Day Years Used Date Former Smoker Cigarettes 0.25 7 Quit: 02/07/19 76 Smokeless Tobacco: Never Used Alcohol Use Standard Drinks/Week Comments No 0 (1 standard drink = 0.6 oz pure alcoho l) Sex Assigned at Date Recorded Female 03/23/2021 8:16 AM EDT documented as of this encounter Progress Notes Fidel Clifton - 06/02/2019 1:00 PM EDT Images from the original note were not included. DERMATOLOGY - ESTABLISHED PATIENT FOLLOW-UP Date of service: 06/02/2019 Brandi Ruiz : 1955, 64 y.o. Chief Complaint: Chief Complaint Patient presents with ??? Follow-up HPI: Brandi Ruiz is a 64 y.o. female last seen by myself on 05/06/2019. Ms. Ruiz returns today for f/u of Dermatomyositis. Pt states she still has fatigue and difficulty getting up from a chair. However, she has had some improvement in the associated itch and redness in her skin. -Pt currently on Plaquenil 200mg BID for approx. 1 month. She also has been using topical Triamcinolone. Pt is using sun protection when outside with an SPF 30. Pt intermittently using hat and long sleeve shirts Workup: -Biopsy consistent with interphase dermatitis that is seen in connective tissue disorder -SAE1 antibody positive -Aldolase and CK not elevated -CT SCAN Chest abdomen and pelvis question of lesions in the liver further PET SCAN follow up negative for underlying malignancy. -MRI of lower extremity negative for myositis Relevant Skin History: - Okay to leave detailed message with results? yes - Skin cancer (including type): yes ?? Face-BCC 1999 Left Arm- BCC-2000 Right Arm- BCC-2013 ?? Family History: Melanoma: no ?? 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 hydroxychloroquine (PLAQUENIL) 200 mg Tablet Take [...] 6 hours as needed. 60 tablet3 ??? diclofenac (VOLTAREN) 1 % Gel Apply 2 g topically 3 times daily as needed (knees). 100 g 5 ??? escitalopram (LEXAPRO) 20 mg tablet Take 20 mg by mouth daily. ??? esomeprazole (NEXIUM) 40 mg capsule Take 40 mg by mouth every morning (before breakfast). No current facility-administered medications for this visit. Allergies: Allergies Allergen Reactions ??? Ceclor [Cefaclor] Hives ??? Pcn [Penicillins] Anaphylaxis ??? Phenergan [Promethazine] Anaphylaxis ??? Preservative Anaphylaxis Sulfites ??? Sulfite ??? Vancomycin Hives Review of Systems: - General: Feels well. - Skin: No other skin concerns. Examination: - Constitutional: Patient was alert, well-appearing and in no noticeable distress. - Skin: Skin examination of the scalp, face, ears, neck, back, chest, abdomen, right and left upper extremities, right and left lower extremities, hands, feet, and buttocks was normal with the exception of the findings listed below. Genitalia not examined. - A female nurse was present and on standby during my examination. Diagnosis/Skin findings/Assessment/Plan: 1. Dermatomyositis-legs, arms, upper chest -Faint erythematous patches with overlying scale. Negative malignancy workup with CT & PET-CT of chest abdomen and pelvis MRI of lower extremity negative for myositis Advised pt to continue regular age appropriate cancer screenings( mammogram and colonoscopy) Plan: -Continue Plaquenil 200 mg BID. Pt plans to obtain baseline eye exam. Denies changes in vision on exam today. Advised takes approx. 3 months to take affect -Continue Triamcinolone ointment BID for 14 days on trunk and extremities. Then take 1 week off and repeat as needed -Continue sun protective behaviors SPF 50 broad spectrum. Avoid peak hours of the day between 10am-2pm when the sun is the brightest. -wear a broad brimmed hat and long sleeve shirt when outside. -Discussed that if disease remains skin limited w/o progression that plaquenil alone may manage his condition. Can consider addition of MTX if condition progress. Pt lives far from [facility] and prefers to be seen in Derm/Rheum clinic 2. Cystic acne. - left lateral chin: 1 cm red firm follicular based papule. - Kenalog 2.5 mg/mL injected intralesionally, total 0.2 mL. Discussed indication for this procedure and potential side effects including ulceration and skin atrophy. -Lot # [id number] -Exp. 07/2020 RTC: Refer to Derm/Rheum Clinic in 2-3 months For follow-up visit Note initiated by PLACIDO ASHLEY LPN. I, PLACIDO ASHLEY LPN, have performed the documentation for this encounter in the presence of and acting as a scribe for Fidel Clifton MD. I performed the services which were documented by the scribe, and I agree with the accuracy of the documentation in this encounter. Fidel Clifton MD Reviewed and signed by: Fidel Clifton MD Resident in Dermatology [facility] Patient seen and evaluated with staff programmer developer: Section of Dermatology [facility] Jason Carver MD - 06/02/2019 1:00 PM EDT I directly supervised Dr. Clifton during this office visit. Dr. Clifton presented the history and physical exam to me. I then saw and examined this patient with Dr. Clifton. We reviewed the history andpertinent details and I confirmed the physical findings. I agree with the details of the history and physical exam as documented in Dr. Clifton' note. JASON CARVER MD Staff Physician documented in this encounter Plan of Treatment Upcoming Encounters Date Type Specialty Care Team Description 09/26/2022 Office Visit Dermatology Ambreen Burroughs MD [facility] DR SHAYY CASTILLO-[facility]MAT [place], [place] [address] (Wo rk) 10/02/2022 Office Visit Pulmonology Laney Calhoun [facility] Pulmonary Medicguido thornton [place], [place] [address] (Wo rk) 11/07/2022 Office Visit Ophthalmology Gifty Bernal MD [facility] Dr Orellana MD [address] (Wo rk) documented as of this encounter Visit Diagnoses Diagnosis Nodulocystic acne Other acne Dermatomyositis documented in this encounter Care Teams Head Control Clerk Relationship Specialty Start Date End Date Samantha Michelle MD PCP - General 09/14/11 [address] [place] [address] documented as of this encounter
--- OUTSIDE RECORDS SUMMARY | 2022-09-15 01:27 | XMS_ITS | Encounter Summary ---
:1955 Author Organization [facility] [place] [address] Care Team Providers Name Role Phone Samantha Michelle MD Primary Care Provider Reason for Visit Diagnostic Test (Routine) - Closed Specialty Diagnoses / Procedures Referred By Contact Refer red To Contact Radiology Diagnoses Dermatomyositis Fidel Clifton MD [facility] Rad Nuclear Med Procedures PET CT Standard Skull Base to Mid-Thigh [facility] [place] [address] [place] [address] Referral ID Status Reason Start Date Expiration Date Visits V isits Requested Authorized [id number] Closed Specialty 05/23/2019 05/22/2020 1 1 Service Requested Encounter Details Date Type Department Care Team Description 05/30/2019 Hospital Encounter Nuclear Medicine at [place], [place] [address] [address]-DERMATOLOGY [phone] [place], [place] [address] (Wo rk) Social History Tobacco [...] Sig Dispensed Refills Start Date End Date ALPRAZolam (XANAX) 0.25 mg Take 0.25 mg [...] 0 capsule mouth every morning (before breakfast). ondansetron (ZOFRAN) 4 mg Take 4 mg by mouth 6 11/24/2019 Tablet as needed. hydroxychloroquine Take 1 tablet by 60 tablet 3 05/12/2019 10/12/2019 (PLAQUENIL) 200 mg mouth 2 times TabletIndications: daily. Dermatomyositis triamcinolone (KENALOG) 0.1 Apply to affected 454 g 1 0 05/12/2019 08/02/2021 % OintmentIndications: areas on arms Dermatomyositis twice daily for 10-14 days. Take 5-7 days off and repeat as needed diclofenac (VOLTAREN) 1 % Apply 2 g 100 g 5 02/13/2019 07/15/2019 GelIndications: Pain in topically 3 times both hands, Chronic pain of daily as needed both knees (knees). documented as of this encounter Plan of Treatment Upcoming Encounters Date Type Specialty Care Team Description 09/26/2022 Office Visit Dermatology Ambreen Burroughs MD [facility] DR SHAYY CASTILLO-DERMAT [place], [place] [address] (Wo naif) 10/02/2022 Office Visit Pulmonology Laney Calhoun [facility] Pulmonary Medicguido thornton [place], [place] [address] (Wo naif) 11/07/2022 Office Visit Ophthalmology Gifty Bernal MD [facility] [place] [address] (Wo rk) documented as of this encounter Procedures Procedure Name Priority Date/Time Associated Diagnosis Comme nts NM PET CT SKULL Routine 05/30/2019 8:57 AM Dermatomyositis Res ults for this BASE TO MID-THIGH EDT procedure are in ([facility]) the results section. POCT GLUCOSE Routine 05/30/2019 6:50 AM Results f or this EDT procedure are i n the results section. documented in this encounter Results POCT Glucose (05/30/2019 6:50 AM EDT) athologist Signature POC Glucose 99 65 - 199 [facility] mg/dL [facility] Comment: Supplemental ranges: <140 mg/dL before meals <180 mg/dL all other times of the day Specimen Anatomical Collection Method Collection Time Receive d Time (Source) Location / / Volume Laterality Blood specimen 05/30/2019 6:50 AM 019 6:50 (specimen) EDT AM EDT Cici Roth MD POINT OF CARE TEST ORDERABLE S Performing Organization Address City/State/[place] [address] documented in this encounter Visit Diagnoses Not on filedocumented in this encounter Care Teams Cardiograph Operator Relationship Specialty Start Date End Date Samantha Michelle MD PCP - General 09/14/11 [address] [place] [address] documented as of this encounter
--- OUTSIDE RECORDS SUMMARY | 2022-09-15 01:27 | XMS_ITS | Encounter Summary ---
:1955 Author Organization [facility] [place] [address] Care Team Providers Name Role Phone Samantha Michelle MD Primary Care Provider Reason for Referral Consultation (Routine) - Closed Specialty Diagnoses / Procedures Referred By Contact Refer red To Contact Gastroenterology Diagnoses Rash Inflammatory arthropathy Arthralgia, unspecified joint Myalgia Positive JANETH (antinuclear antibody) Polyarthritis with positive rheumatoid factor Pain in both hands Chronic pain of both knees Pain in both feet Chronic cough Cuba Martin MD [facility] [place] G[facility] [place] [address] [place] [address] Phone: Fax: Referral ID Status Reason Start Date Expiration Date Visits V isits Requested Authorized [id number] Closed Consult, 02/13/2019 08/12/2019 1 1 Test & Treat Reason for Visit Consultation (Routine) - Specialty Diagnoses / Procedures Referred By Contact Refer red To Contact Rheumatology Diagnoses DEGENERATIVE JOINT DISEASE, KNEES, BILATERAL Samantha Michelle MD [facility] Rheumatology [address]c [address] [place] [address] [place] [address] Fax: Referral ID Status Reason Start Date Expiration Date Visits V isits Requested Authorized [id number] Consult, 01/05/2019 01/05/2020 6 6 Test & Treat Connection Center Encounter Details Date Type Department Care Team Description 02/13/2019 Office Visit Rheumatology at [facility] [place] Cuba Martin, Rash; [facility] Infl[facility]; [facility] Arthralgia, unspecified join t; [place] [address] Myalgia; [phone] [place], [place] [address] Positive JANETH (antinuclear antibody); [phone] Polyarthritis w ith positive rheumatoid factor; (Work) Pain in both hands; [phone] Chronic pain of both knees; (Fax) Pain in both fe et; Chronic cough Social History Tobacco Use Types [...] Sign Reading Time Taken Comments Blood Pressure 144/60 02/13/2019 8:18 AM EDT Pulse 72 02/13/2019 8:18 AM EDT Temperature 36.8 ??C (98.3 ??F) 02/13/2019 8:18 AM EDT Respiratory Rate - - Oxygen Saturation 96% 02/13/2019 8:18 AM EDT Inhaled Oxygen Concentration - - Weight 142.2 kg (313 lb 6.4 oz) 02/13/2019 8:18 AM EDT Height 175.9 cm (5' 9.25) 02/13/2019 8:18 AM EDT Body Mass Index 45.95 02/13/2019 8:18 AM EDT documented in this encounter Progress Notes Cuba Martin MD - 02/13/2019 8:30 AM EDT Rheumatology Consult Note Reason for Consult: Brandi Ruiz presents today at the request of Samantha Michelle MD for evaluation of degenerative joint disease Janeth 1:160, CRp 3 (WNL.o3), ESR 37 CRP HPI: Brandi Ruiz is a 63 y.o. female who presents today for evaluation of the last year she has had incredible fatigue body hurts allo over, rashes all over weeks later, sores in her mouth, a chronic cough, with frequent URIs with productive yelloow cough some kin pof pneumonia, and nodules on PIPS. Shehas had tinging in the hands with carpel tunnel surgery. Mental fogginess and History of migraines. VERA back of the head and come over the top no temporal involvement. She is sleep apnea and uses the CPAP last eval recent was good. She has had some recent dysphagia to rice EGD a couple of years ago. Symptoms include photosensitivity, oral ulcers, arthritis, fatigue, malaise, nausea, headaches and memory difficulty. Patient denies associated alopecia, fevers, morning stiffness, muscle weakness, nausea, nodules, palpitations, pleurisy, polydypsia, polyuria, rashes/photosensitive and Raynaud's. Patient is currently taking the following medications associate with SLE type syndrome: chlorpromazine, hydralazine, isoniazid, methyldopa, procainamide and quinidin Swelling warmth or Redness of the Joints Maybe the right knee Morning stiffness: none Pain Improves with: Pain worsens with: Family History of Rheumatologic Disease: unaware ROS: General (-)fevers, (-)chills, (-)night sweats, (-)wt loss/gain. HEENT (-)head trauma, (-)vision change, (-)tinnitus, (-)epistaxis, (-)sore throat, (-)bleeding gums,+)oral ulcers, (-)dry eyes, (-)dry mouth, (-)dysphagia, (-)GERD, (-)photo sensitivity, (-)Hair loss,(-)vertigo CVS (-)chest pain, (-)palpitations, (-)pedal edema, (-)PND, (-)orthopnea. Pulm (-)shortness of breath, (-)BABIN, (-)wheezes, (-)cough, (-)pleuritic pain GI (-)N/V, (-)abdominal pain, (-)emesis, (-)hematemesis, (-)hematochezia, (- )change in appetite (-)hematuria, (-)dysuria, (-)frequency, (-)nocturia, (-)genital ulcers MS (-)muscle weakness, (-)paralysis, (-)joint pain, (-)hx of arthritis Endo (-)thyroid disorders, (-)diabetes, (-)temperature intolerance. Neuro (-)focal weakness, (-)paresthesias, (-)gait instability. Skin (-)Raynaud's, ulcers Psych (-) mood disorder. Past Medical History: Diagnosis Date ??? Allergy 1985 sulfites (preservative), pcn, ceclor, mold, dogs ??? Bladder disorder 2007 stress urinary incontinence ??? Blood disease 1997 anemia due to heavy periods ??? Bone disease 1996 OA and DJD of knees ??? Cancer 1997 skin basal cell ??? Chronic pain 2009 knees ??? Circulatory disease 1989 varicose veins ??? Genital disease, female 2010 heavy menses, fibroids ??? Headache(784.0) 1988 migraine headaches ??? Heart disorder 1972 svt ??? Hypothyroid ??? Hypothyroidism 10/28/2012 ??? Mental or behavioral problem 1977 anxiety ??? SVT (supraventricular tachycardia) Patient Active Problem List Diagnosis Date Noted ??? History of basal cell carcinoma 10/31/2016 ??? SVT (supraventricular tachycardia) ??? Hypothyroid ??? Anemia 10/28/2012 ??? Hypothyroidism 10/28/2012 ??? Anxiety 10/28/2012 Past Surgical History: Procedure Laterality ??? JOINT REPLACEMENT 1999 left knee arthroscopy ??? PRO COLONOSCOPY, BIOPSY 04/09/2012 COLONOSCOPY FLEXIBLE, WITH BX performed by DONALD VALIENTE at [facility] ??? PRO UPPER GI ENDOSCOPY, BIOPSY 04/09/2012 EGD WITH BIOPSY performed by DONALD VALIENTE at [facility] ??? STOMACH SURGERY 1975 ruptured ectopic, appendectomy, 1993 choleysectomy ??? UPPER GI ENDOSCOPY, EXAM 04/09/2012 UPPER GI ENDOSCOPY performed by DONALD VALIENTE at [facility] Family History Problem Relation Age of Onset ??? Alcohol Abuse Father ??? Depression Mother ??? Depression Father [...] on phone: None Gets together: None Attends buddhist service: None Active member of club or [...] Outpatient Medications Medication Sig Dispense Refill ??? metoprolol succinate 25 mg capsule,sprinkle,ER 24hr Take 25 mg by mouth daily. ??? levothyroxine (SYNTHROID) 112 mcg tablet Take 125 mcg by mouth daily. ??? escitalopram (LEXAPRO) 20 mg tablet Take 20 mg by mouth daily. ??? esomeprazole (NEXIUM) 40 mg capsule Take 40 mg by mouth every morning (before breakfast). ??? acetaminophen (TYLENOL) 500 mg tablet Take 1,000 mg by mouth every 6 hours as needed. No current facility-administered medications for this visit. Current Outpatient Medications on File Prior to Visit Medication Sig Dispense Refill ??? metoprolol succinate 25 mg capsule,sprinkle,ER 24hr Take 25 mg by mouth daily. ??? levothyroxine (SYNTHROID) 112 mcg tablet Take 125 mcg by mouth daily. ??? escitalopram (LEXAPRO) 20 mg tablet Take 20 mg by mouth daily. ??? esomeprazole (NEXIUM) 40 mg capsule Take 40 mg by mouth every morning (before breakfast). ??? acetaminophen (TYLENOL) 500 mg tablet Take 1,000 mg by mouth every 6 hours as needed. ??? [DISCONTINUED] meloxicam (MOBIC) 7.5 mg tablet Take 7.5 mg by mouth daily. ??? [DISCONTINUED] montelukast (SINGULAIR) 10 mg tablet Take 10 mg by mouth nightly. No current facility-administered medications on file prior to visit. Allergies Allergen Reactions ??? Ceclor [Cefaclor] Hives ??? Pcn [Penicillins] Anaphylaxis ??? Phenergan [Promethazine] Anaphylaxis ??? Preservative Anaphylaxis Sulfites ??? Sulfite ??? Vancomycin Hives Physical Exam: BP 144/60 Pulse 72 Temp 36.8 ??C (98.3 ??F) Ht 175.9 cm (5' 9.25) Wt (!) 142.2 kg (313 lb 6.4 oz) SpO2 96% BMI 45.95 kg/m?? General: AAOx3, NAD, high BMI HEENT: Mucous membranes are moist, Whitish area left bucal mucosal appears to be healed, temporal artery non-palpable, erythema on the cheek Not true malar rash xs nasal labial folds Neck: Supple, no lymphadenopathy, full range of motion, strength wnl Cardiovascular: RR, (-)murmurs, rubs, or gallops. Lungs: Clear to auscultation bilaterally. (-)R/R/W Abdomen: Soft, non tender, non distended, + bowel sounds, no hepatosplenomegaly. Neuro: Alert and oriented x3. Cranial nerves II through XII grossly intact. - Strength 5/5 throughout, -Sensation to light touch is grossly normal throughout. DTRs are 2+ throughout. Toes down going bilaterally. Skin: (-)ulcers, rosacea face no true malar, Vascular: Pulses are equal in all extremities no guuttron papules, holster sign, v siging. MSK Back: Non tender over the spine and costovertebral angles bilaterally. (-)Nubia Extremities Shoulders: FROM, non-tender to palpation Elbows:FROM, (-)pain, (-)nodules Wrists: FROM, no swelling, non-tender Hands: no MCP compression tenderness, full claw and fist, mild puffiness of the MCPs Hips: FROM, (-) fader (-nubia) Knees: (-)effusions, left knee tender not warm, swollen, or red Ankles: FROM, non-tender, no swelling Feet: no MTP compression tenderness Spine, shoulders, elbows, wrists, fingers, hips, knees and ankles; no active swelling, tenderness orsynovitis at any joint. No soft tissue nodules. Labs Recent Results (from the past 72 hour(s)) Rheumatoid factor, quant Result Value Ref Range RF 17 (H) <=14 IU/mL Cyclic Citrullinated Peptide Result Value Ref Range Anti-Cyc Cit Peptide <0.5 <=4.9 unit/mL Sedimentation rate Result Value Ref Range Sed Rate 17 0 - 20 mm/hr Comprehensive metabolic panel (non-fasting) Result Value Ref Range Glucose Lvl 96 65 - 199 mg/dL BUN 11 8 - 18 mg/dL Creatinine 0.61 (L) 0.70 - 1.20 mg/dL Sodium 141 135 - 145 mmol/L Potassium 4.3 3.5 - 5.0 mmol/L Chloride 103 98 - 107 mmol/L CO2 26 22 - 31 mmol/L Anion Gap 12 5 - 15 mmol/L Calcium 10.1 8.5 - 10.5 mg/dL Total Protein 7.7 6.1 - 8.0 gm/dL Albumin 4.1 3.2 - 5.2 gm/dL AST 16 0 - 30 unit/L ALT 12 0 - 30 unit/L Alk Phos 93 40 - 104 unit/L Total Bilirubin 0.3 0.2 - 1.3 mg/dL eGFR 97 >=60 mL/min/1.73 m?? eGFR 113 >=60 mL/min/1.73 m?? CRP, acute inflammation Result Value Ref Range CRP 29.0 (H) <=4.9 mg/L HIV Screen, 4th Generation Result Value Ref Range HIV-1/2 Ab and Ag Negative Negative Hepatitis B Surface Antibody Result Value Ref Range HepB Surface Ab Quant 11.7 IU/L HepB Surface Ab Positive Hepatitis C Antibody Result Value Ref Range Hepatitis C Ab Negative Negative Hepatitis B Surface Antigen Result Value Ref Range HepB Surface Ag Negative Negative Hepatitis B Core Antibody, Total Result Value Ref Range Hep B Core Ab Negative Negative Uric acid Result Value Ref Range Uric Acid 6.4 2.5 - 6.5 mg/dL CK Result Value Ref Range CK, Total 44 0 - 160 unit/L C4 Complement Result Value Ref Range C4 Complement 32 10 - 40 mg/dL C3 Complement Result Value Ref Range C3 Complement 167 90 - 180 mg/dL Hemogram Result Value Ref Range WBC 11.7 (H) 4.0 - 9.5 x10(3)/mcL RBC 5.37 (H) 4.00 - 5.21 x10(6)/mcL Hemoglobin 13.4 11.7 - 15.5 gm/dL Hematocrit 42.9 35.7 - 45.8 % MCV 79.9 (L) 82.6 - 94.4 fL MCH 25.0 (L) 27.1 - 32.0 pg MCHC 31.2 (L) 31.7 - 35.0 gm/dL Platelets 293 145 - 357 x10(3)/mcL RDWSD 49.1 (H) 37.0 - 46.0 fL RDWCV 16.9 (H) 11.5 - 14.1 % MPV 10.1 7.6 - 12.9 fL nRBC % Auto 0.0 % nRBC Abs Auto 0.000 0.000 - 0.000 x10(3)/mcL Differential, Automated Result Value Ref Range Neutrophils % 65.2 % Neutr Abs (ANC) 7.60 (H) 1.70 - 6.10 x10(3)/mcL Lymphocytes % 24.9 % Lymphocytes Abs 2.9 0.9 - 3.2 x10(3)/mcL Monocytes % 6.4 % Monocyte Abs 0.8 0.3 - 0.9 x10(3)/mcL Eosinophils % 2.5 % Eosinophils Abs 0.3 0.0 - 0.4 x10(3)/mcL Basophils % 0.5 % Basophils Abs 0.1 0.0 - 0.1 x10(3)/mcL Immature Gran % 0.50 % Kavitha Gran Abs 0.06 (H) 0.00 - 0.04 x10(3)/mcL dRVVT Result Value Ref Range dRVVT 1.02 <=1.20 IU/mL Silica Clotting Time Result Value Ref Range Silica Clotting Time 1.16 <=1.16 ratio No results found. Assessment: Brandi Ruiz is a 63 y.o. female who presents today with polyarthralgia, myalgia, dysphagia, and photosensitive rash over the summer with right knee pain. She continues to have fatigue achiness some subjective weakness though not present on exam. Her outside JANETH was 1-160 speckled she also had a positive RF and high CRP.. On exam she did have some MCP fullness but no active synovitis in the right knee was painful with range of motion and is not tender to palpation, no erythema or warmth.. Based onmy assessment my impression is the patient likely has underlying connective tissue disease however describes a wide range of symptoms so we will do further testing to evaluate both the joints and autoim mune inflammatory markers. At this time hx is most consistent and some of her her exam is most consistent with SLE lbut acks lymphopenia, leukopenia, elevated ESR, hypocomplementemia. Plan or Recommendation : Consider CT of the Chest High Resolution if not yet done Orders Placed This Encounter Procedures ??? XR Hand Min 3 views Bilat (Generic) ??? XR Foot Min 3 views Bilat (Generic) ? ? XR Chest PA & Lateral (Generic) ??? XR Knee 3 Views Bilat ??? CRP, acute inflammation ??? Comprehensive metabolic panel (non-fasting) ??? CBC (with Diff) ??? Sedimentation rate ??? Cyclic Citrullinated Peptide ??? Rheumatoid factor, quant ??? JANETH (LEB/CGP) ??? Extractable Nuclear Antigen (PEE) Ab ??? Cardiolipin Antibody Screen ??? Beta-2 glycoprotein antibodies ??? Lupus Anticoagulant Panel ??? DNA Antibody (Double-Stranded) ??? C3 Complement ??? C4 Complement ??? Cytoplasmic Neutrophilic Ab ??? Myeloperoxidase Ab ??? Proteinase-3 Antibody ??? Aldolase ??? CK ??? Myositis Antibody Panel Plus ??? Uric acid ??? Hepatitis B Core Antibody, Total ??? Hepatitis B Surface Antigen ??? Hepatitis C Antibody ??? Hepatitis B Surface Antibody ??? QuantiFERON-TB Gold ??? HIV Screen, 4th Generation ??? Hemogram ??? Differential, Automated ??? dRVVT ??? Silica Clotting Time ??? Referral to Gastroenterology documented in this encounter Plan of Treatment Upcoming Encounters Date Type Specialty Care Team Description 09/26/2022 Office Visit Dermatology Ambreen Burroughs MD [facility] [address] [facility] [place] [address] (Wo rk) 10/02/2022 Office Visit Pulmonology Laney Calhoun M [facility] [place] [address] (Wo rk) 11/07/2022 Office Visit Ophthalmology Gifty Bernal MD [facility] [place] [address] (Wo rk) Scheduled Referrals Name Type Priority Associated Order Schedule Diagnoses Referral to Outpatient Routine Rash Ordered: Gastroenterology Referral Inflammatory 02/13/2019 arthropathy Arthralgia, unspecified join t Myalgia Positive JANETH (antinuclear antibody) Polyarthritis with positive rheumatoid factor Pain in both lynn ds Chronic pain of both knees Pain in both fee t Chronic cough documented as of this encounter Procedures Procedure Name Priority Date/Time Associated Comments Diagnosis CRP, ACUTE INFLAMMATION Routine 02/13/2019 10:10 Rash Results for this AM EDT Inflammatory procedure are i n arthropathy the results Arthralgia, section. unspecified join t Myalgia Positive JANETH (antinuclear antibody) Polyarthritis with positive rheumatoid factor Pain in both lynn ds Chronic pain of both knees Pain in both fee t Chronic cough LUPUS ANTICOAGULANT Routine 02/13/2019 10:10 Rash AM EDT Inflammatory arthropathy Arthralgia, unspecified join t Myalgia Positive JANETH (antinuclear antibody) Polyarthritis with positive rheumatoid factor Pain in both lynn ds Chronic pain of both knees Pain in both fee t Chronic cough SILICA CLOTTING TIME Routine 02/13/2019 10:10 Rash Results for this AM EDT Inflammatory procedure are i n arthropathy the results Arthralgia, section. unspecified join t Myalgia Positive JANETH (antinuclear antibody) Polyarthritis with positive rheumatoid factor Pain in both lynn ds Chronic pain of both knees Pain in both fee t Chronic cough DRVVT Routine 02/13/2019 10:10 Rash Results for this AM EDT Inflammatory procedure are i n arthropathy the results Arthralgia, section. unspecified join t Myalgia Positive JANETH (antinuclear antibody) Polyarthritis with positive rheumatoid factor Pain in both lynn ds Chronic pain of both knees Pain in both fee t Chronic cough EXTRACTABLE NUCLEAR Routine 02/13/2019 10:10 Rash Results for this ANTIGEN (PEE) AB AM EDT Inflammatory procedure a re in arthropathy the results Arthralgia, section. unspecified join t Myalgia Positive JANETH (antinuclear antibody) Polyarthritis with positive rheumatoid factor Pain in both lynn ds Chronic pain of both knees Pain in both fee t Chronic cough CYTOPLASMIC Routine 02/13/2019 10:10 Rash Results for this NEUTROPHILIC AB AM EDT Inflammatory procedure ar e in arthropathy the results Arthralgia, section. unspecified join t Myalgia Positive JANETH (antinuclear antibody) Polyarthritis with positive rheumatoid factor Pain in both lynn ds Chronic pain of both knees Pain in both fee t Chronic cough PROTEINASE-3 ANTIBODY Routine 02/13/2019 10:10 Rash Results for this AM EDT Inflammatory procedure are i n arthropathy the results Arthralgia, section. unspecified join t Myalgia Positive JANETH (antinuclear antibody) Polyarthritis with positive rheumatoid factor Pain in both lynn ds Chronic pain of both knees Pain in both fee t Chronic cough MYELOPEROXIDASE AB Routine 02/13/2019 10:10 Rash Results for this AM EDT Inflammatory procedure are i n arthropathy the results Arthralgia, section. unspecified join t Myalgia Positive JANETH (antinuclear antibody) Polyarthritis with positive rheumatoid factor Pain in both lynn ds Chronic pain of both knees Pain in both fee t Chronic cough QUANTIFERON-TB GOLD Routine 02/13/2019 10:10 Rash Results for this AM EDT Inflammatory procedure are i n arthropathy the results Arthralgia, section. unspecified join t Myalgia Positive JANETH (antinuclear antibody) Polyarthritis with positive rheumatoid factor Pain in both lynn ds Chronic pain of both knees Pain in both fee t Chronic cough ANTI-CYCLIC Routine 02/13/2019 10:10 Rash Results for this CITRULLINATED PEPTIDE AM EDT Inflammatory proced ure are in AB arthropathy the results Arthralgia, section. unspecified join t Myalgia Positive JANETH (antinuclear antibody) Polyarthritis with positive rheumatoid factor Pain in both lynn ds Chronic pain of both knees Pain in both fee t Chronic cough DNA ANTIBODY Routine 02/13/2019 10:10 Rash Results for this (DOUBLE-STRANDED) AM EDT Inflammatory procedure are in arthropathy the results Arthralgia, section. unspecified join t Myalgia Positive JANETH (antinuclear antibody) Polyarthritis with positive rheumatoid factor Pain in both lynn ds Chronic pain of both knees Pain in both fee t Chronic cough MYOSITIS ANTIBODY PANEL Routine 02/13/2019 10:10 Rash Results for this PLUS AM EDT Inflammatory procedure are i n arthropathy the results Arthralgia, section. unspecified join t Myalgia Positive JANETH (antinuclear antibody) Polyarthritis with positive rheumatoid factor Pain in both lynn ds Chronic pain of both knees Pain in both fee t Chronic cough HEMOGRAM Routine 02/13/2019 10:10 Rash Results for this AM EDT Inflammatory procedure are i n arthropathy the results Arthralgia, section. unspecified join t Myalgia Positive JANETH (antinuclear antibody) Polyarthritis with positive rheumatoid factor Pain in both lynn ds Chronic pain of both knees Pain in both fee t Chronic cough DIFFERENTIAL, AUTOMATED Routine 02/13/2019 10:10 Rash Results for this AM EDT Inflammatory procedure are i n arthropathy the results Arthralgia, section. unspecified join t Myalgia Positive JANETH (antinuclear antibody) Polyarthritis with positive rheumatoid factor Pain in both lynn ds Chronic pain of both knees Pain in both fee t Chronic cough HEPATITIS C ANTIBODY Routine 02/13/2019 10:10 Rash Results for this AM EDT Inflammatory procedure are i n arthropathy the results Arthralgia, section. unspecified join t Myalgia Positive JANETH (antinuclear antibody) Polyarthritis with positive rheumatoid factor Pain in both lynn ds Chronic pain of both knees Pain in both fee t Chronic cough ALDOLASE Routine 02/13/2019 10:10 Rash Results for this AM EDT Inflammatory procedure are i n arthropathy the results Arthralgia, section. unspecified join t Myalgia Positive JANETH (antinuclear antibody) Polyarthritis with positive rheumatoid factor Pain in both lynn ds Chronic pain of both knees Pain in both fee t Chronic cough HEPATITIS B CORE Routine 02/13/2019 10:10 Rash Results for this ANTIBODY, TOTAL AM EDT Inflammatory procedure ar e in arthropathy the results Arthralgia, section. unspecified join t Myalgia Positive JANETH (antinuclear antibody) Polyarthritis with positive rheumatoid factor Pain in both lynn ds Chronic pain of both knees Pain in both fee t Chronic cough BETA-2 GLYCOPROTEIN Routine 02/13/2019 10:10 Rash Results for this ANTIBODIES AM EDT Inflammatory procedure are i n arthropathy the results Arthralgia, section. unspecified join t Myalgia Positive JANETH (antinuclear antibody) Polyarthritis with positive rheumatoid factor Pain in both lynn ds Chronic pain of both knees Pain in both fee t Chronic cough HIV SCREEN, 4TH Routine 02/13/2019 10:10 Rash Results for this GENERATION AM EDT Inflammatory procedure are i n ([facility]/CGP/APD/[facility]H) arthropathy the results Arthralgia, section. unspecified join t Myalgia Positive JANETH (antinuclear antibody) Polyarthritis with positive rheumatoid factor Pain in both lynn ds Chronic pain of both knees Pain in both fee t Chronic cough HEPATITIS B SURFACE Routine 02/13/2019 10:10 Rash Results for this ANTIBODY AM EDT Inflammatory procedure are i n arthropathy the results Arthralgia, section. unspecified join t Myalgia Positive JANETH (antinuclear antibody) Polyarthritis with positive rheumatoid factor Pain in both lynn ds Chronic pain of both knees Pain in both fee t Chronic cough HEPATITIS B SURFACE Routine 02/13/2019 10:10 Rash Results for this ANTIGEN AM EDT Inflammatory procedure are i n arthropathy the results Arthralgia, section. unspecified join t Myalgia Positive JANETH (antinuclear antibody) Polyarthritis with positive rheumatoid factor Pain in both lynn ds Chronic pain of both knees Pain in both fee t Chronic cough CARDIOLIPIN ANTIBODY Routine 02/13/2019 10:10 Rash Results for this SCREEN AM EDT Inflammatory procedure are i n arthropathy the results Arthralgia, section. unspecified join t Myalgia Positive JANETH (antinuclear antibody) Polyarthritis with positive rheumatoid factor Pain in both lynn ds Chronic pain of both knees Pain in both fee t Chronic cough SEDIMENTATION RATE Routine 02/13/2019 10:10 Rash Results for this AM EDT Inflammatory procedure are i n arthropathy the results Arthralgia, section. unspecified join t Myalgia Positive JANETH (antinuclear antibody) Polyarthritis with positive rheumatoid factor Pain in both lynn ds Chronic pain of both knees Pain in both fee t Chronic cough CBC (WITH DIFF) Routine 02/13/2019 10:10 Rash AM EDT Inflammatory arthropathy Arthralgia, unspecified join t Myalgia Positive JANETH (antinuclear antibody) Polyarthritis with positive rheumatoid factor Pain in both lynn ds Chronic pain of both knees Pain in both fee t Chronic cough RHEUMATOID FACTOR, Routine 02/13/2019 10:10 Rash Results for this QUANT AM EDT Inflammatory procedure are i n arthropathy the results Arthralgia, section. unspecified join t Myalgia Positive JANETH (antinuclear antibody) Polyarthritis with positive rheumatoid factor Pain in both lynn ds Chronic pain of both knees Pain in both fee t Chronic cough C3 COMPLEMENT Routine 02/13/2019 10:10 Rash Results for this AM EDT Inflammatory procedure are i n arthropathy the results Arthralgia, section. unspecified join t Myalgia Positive JANETH (antinuclear antibody) Polyarthritis with positive rheumatoid factor Pain in both lynn ds Chronic pain of both knees Pain in both fee t Chronic cough C4 COMPLEMENT Routine 02/13/2019 10:10 Rash Results for this AM EDT Inflammatory procedure are i n arthropathy the results Arthralgia, section. unspecified join t Myalgia Positive JANETH (antinuclear antibody) Polyarthritis with positive rheumatoid factor Pain in both lynn ds Chronic pain of both knees Pain in both fee t Chronic cough JANETH Routine 02/13/2019 10:10 Rash Results for this AM EDT Inflammatory procedure are i n arthropathy the results Arthralgia, section. unspecified join t Myalgia Positive JANETH (antinuclear antibody) Polyarthritis with positive rheumatoid factor Pain in both lynn ds Chronic pain of both knees Pain in both fee t Chronic cough URIC ACID Routine 02/13/2019 10:10 Rash Results for this AM EDT Inflammatory procedure are i n arthropathy the results Arthralgia, section. unspecified join t Myalgia Positive JANETH (antinuclear antibody) Polyarthritis with positive rheumatoid factor Pain in both lynn ds Chronic pain of both knees Pain in both fee t Chronic cough CK Routine 02/13/2019 10:10 Rash Results for this AM EDT Inflammatory procedure are i n arthropathy the results Arthralgia, section. unspecified join t Myalgia Positive JANETH (antinuclear antibody) Polyarthritis with positive rheumatoid factor Pain in both lynn ds Chronic pain of both knees Pain in both fee t Chronic cough COMPREHENSIVE METABOLIC Routine 02/13/2019 10:10 Rash Results for this PANEL (NON-FASTING) AM EDT Inflammatory procedur e are in arthropathy the results Arthralgia, section. unspecified join t Myalgia Positive JANETH (antinuclear antibody) Polyarthritis with positive rheumatoid factor Pain in both lynn ds Chronic pain of both knees Pain in both fee t Chronic cough documented in this encounter Results XR Knee [...] For questions regarding this report, please contact [facility] number below. ? Narrative 02/24/2019 12:54 PM [...] osteoarthropathy, most pronounced in the medial tibiofemoral yolie int with subchondral sclerosis, joint space narrowing [...] osteoarthropathy, most pronounced in the medial tibiofemoral yolie int with subchondral sclerosis, joint space narrowing [...] For questions regarding this report, please contact [facility] number below. Cuba Martin MD IMG DX ORDERABLES XR Chest PA & Lateral (Generic) (02/24/2019 [...] original. EXAMINATION: XR CHEST PA AND LATERAL (inMarket NERIC) CLINICAL HISTORY: cough TECHNIQUE: PA and [...] below. Cuba Martin MD IMG DX ORDERABLES XR Foot Min 3 views Bilat (Generic) (02/24/2019 11:19 AM EDT) Anatomical Region Laterality Modality Foot Bilateral Digital Radiography Specimen (Source) Anatomical Location Collection Method / Collectio n Time Received Time / Laterality Volume Impressions 02/24/2019 2:50 PM EDT Enthesopathy and, at the third right toe, periarticular proliferative bone, suggestive of a seronegative spondyloart hropathy. Midfoot arthropathy bilaterally is not s pecific in appearance and may simply be related to neuropathic disease. Thank you for letting us participate in the care of this patient. For questions regarding this report, please contact e number below. ? 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 The degree of separation and deformity i s more pronounced on the right compared to the left. No ankle effusion is identified. There a re very large enthesophytes at the Achilles insertion and the plantar aspec t of the heel bilaterally. No healed erosion is identified. No periostitis is identified at the heel. At the Chopart joint on the left and at the level of the cuneiforms on the right there is sclerosis and osteophyte format ion. Note definite erosive disease is apparent. No metatarsal fracture is identified. Pr oliferative bone is seen at the base of the fifth metatarsal bilaterally. At the metatarsophalangeal joints no ero sive disease malalignment or joint space narrowing is identified. Small marginal osteophytes are present at the first metatarsophalangeal joints. Joint space narrowing is present at the proximal and distal interphalangeal joints of the right third toe. There is proliferative bone at the shelbi ns. The appearance is nonspecific but the presence of proliferative bone in th e distribution is suggestive of a seronegative spondyloarthropathy. Procedure Note Tereso Perez MD - 02/24/2019Forma tting of this note might be different from the original. 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 The degree of separation and deformity i s more pronounced on the right compared to the left. No ankle effusion is identified. There a re very large enthesophytes at the Achilles insertion and the plantar aspec t of the heel bilaterally. No healed erosion is identified. No periostitis is identified at the heel. At the Chopart joint on the left and at the level of the cuneiforms on the right there is sclerosis and osteophyte format ion. Note definite erosive disease is apparent. No metatarsal fracture is identified. Pr oliferative bone is seen at the base of the fifth metatarsal bilaterally. At the metatarsophalangeal joints no ero sive disease malalignment or joint space narrowing is identified. Small marginal osteophytes are present at the first metatarsophalangeal joints. Joint space narrowing is present at the proximal and distal interphalangeal joints of the right third toe. There is proliferative bone at the shelbi ns. The appearance is nonspecific but the presence of proliferative bone in th e distribution is suggestive of a seronegative spondyloarthropathy. IMPRESSION Enthesopathy and, at the third right toe , periarticular proliferative bone, suggestive of a seronegative spondyloart hropathy. Midfoot arthropathy bilaterally is not s pecific in appearance and may simply be related to neuropathic disease. Thank you for letting us participate in the care of this patient. For questions regarding this report, please contact [facility] number below. Electronically signed by: RIAN Wheeler [facility] ([phone]), at 02/24/2019 2:50 PM Cuba Martin MD IMG DX ORDERABLES XR Hand Min 3 views Bilat (Generic) [...] For questions regarding this report, please contact [facility] number below. ? Electronically signed by: Jame Monroy [facility] ([phone]), at 02/24/2019 3:15 PM Narrative 02/24/2019 3:15 PM EDT EXAMINATION: XR [...] For questions regarding this report, please contact th e number below. Electronically signed by: Jame Monroy [facility] ([phone]), at 02/24/2019 3:15 PM Cuba Martin MD IMG DX ORDERABLES Silica Clotting Time (02/13/2019 10:10 AM EDT) P athologist Signature Silica 1.16 <=1.16 [facility] Time ratio [facility] Comment: A result greater than 1.16 TR is consist ent with the presence of lupus anticoagulant. Values of 1.16 to 1.24 in this assay are not definitively positive or negative for the presence of a lupus anticoagulant. The SCT ratio may be falsely elevated in patients on a nticoagulants, especially heparins and direct oral anticoagulants. An abnormal test result in an anticoagulated patient must therefore be interpreted wi th caution, and repeat testing after discontinuing anticoagulation may be shorty ropriate. Specimen Anatomical Collection Method Collection Time Receive d Time (Source) Location / / Volume Laterality Blood specimen 02/13/2019 10:10 9 (specimen) AM EDT 10:27 AM EDT Resulting Agency Comment Spec In Lab Cuba Martin MD HEMATOLOGY ORDERABLES Performing Organization Address City/State/[place] [address] dRVVT (02/13/2019 10:10 AM EDT) athologist Signature dRVVT 1.02 <=1.20 [facility] IU/mL [facility] Comment: A result greater than 1.20 TR is consist ent with the presence of lupus anticoagulant. Values of 1.20 to 1.30 in this assay are not definitively positive or negative for the presence of a lupus anticoagulant. The DRVVT ratio may be falsely elevated in patients on a nticoagulants, especially heparins and direct oral anticoagulants. An abnormal test result in an anticoagulated patient must therefore be interpreted wi th caution, and repeat testing after discontinuing anticoagulation may be shorty ropriate. Specimen Anatomical Collection Method Collection Time Receive d Time (Source) Location / / Volume Laterality Blood specimen 02/13/2019 10:10 9 (specimen) AM EDT 10:27 AM EDT Resulting Agency Comment Spec In Lab Cuba Martin MD HEMATOLOGY ORDERABLES Performing Organization Address City/State/[place] [address] (ABNORMAL) Differential, Automated (02/13/2019 10:10 AM EDT) [facility] Method Time Signature Neutrophils % 65.2 % [facility] Neutr Abs (ANC) 7.60 (H) 1.70 - [facility] 6.10 [facility] x10(3)/[facility] LABORATORY Lymphocytes % 24.9 % [facility] Lymphocytes Abs 2.9 0.9 - 3.2 [facility] x10(3)/[facility] LABORATORY Monocytes % 6.4 % [facility] Monocyte Abs 0.8 0.3 - 0.9 [facility] x10(3)/[facility] LABORATORY Eosinophils % 2.5 % [facility] Eosinophils Abs 0.3 0.0 - 0.4 [facility] x10(3)/[facility] LABORATORY Basophils % 0.5 % [facility] Basophils Abs 0.1 0.0 - 0.1 [facility] x10(3)/[facility] LABORATORY Immature Gran % 0.50 % [facility] Comment: Immature granulocytes(IG's)percentage an d absolute count will include metamyelocytes, myelocytes, and promyelo cytes. Blood smears from CBCs yielding IG's will be scanned manually for concor dance. If this scan disagrees with the automated IG or if promyelocytes are not ed, a manual differential will be performed. Kavitha Gran Abs 0.06 (H) 0.00 - 0.04 x10(3)/[facility] LABORATORY Specimen Anatomical Collection Method Collection Time Receive d Time (Source) Location / / Volume Laterality Blood specimen 02/13/2019 10:10 9 (specimen) AM EDT 10:27 AM EDT Resulting Agency Comment Spec In Lab Cuba Martin MD HEMATOLOGY ORDERABLES Performing Organization Address City/State/[place] [address] (ABNORMAL) Hemogram (02/13/2019 10:10 AM EDT) Analysis Performed At [facility] Time Signature WBC 11.7 (H) 4.0 - 9.5 [facility] LABORATORY RBC 5.37 (H) 4.00 - [place] JERRY 5.21 [facility] x10(6)/[facility] LABORATORY Hemoglobin 13.4 11.7 - [facility] 15.5 gm/dL [facility] Hematocrit 42.9 35.7 - [facility] 45.8 % [facility] MCV 79.9 (L) 82.6 - [facility] 94.4 [facility] LABORATORY MCH 25.0 (L) 27.1 - [facility] 32.0 pg [facility] MCHC 31.2 (L) 31.7 - [facility] 35.0 gm/dL [facility] Platelets 293 145 - 357 [facility] x10(3)/[facility] LABORATORY RDWSD 49.1 (H) 37.0 - [facility] 46.0 [facility] LABORATORY RDWCV 16.9 (H) 11.5 - [facility] JERRY 14.1 % [facility] MPV 10.1 7.6 - 12.9 [facility] nRBC % Auto 0.0 % [facility] nRBC Abs Auto 0.000 0.000 - [facility] JERRY 0.000 [facility] x10(3)/[facility] LABORATORY Specimen Anatomical Collection Method Collection Time Receive d Time (Source) Location / / Volume Laterality Blood specimen 02/13/2019 10:10 9 (specimen) AM EDT 10:27 AM EDT Resulting Agency Comment Spec In Lab Cuba Martin MD HEMATOLOGY ORDERABLES Performing Organization Address City/State/[place] [address] HIV Screen, 4th Generation (02/13/2019 10:10 AM EDT) Analysis Performed At Patho logist Time Signature HIV-1/2 Ab and Negative Negative [facility] LABORATORY Comment: This 4th Generation HIV test screens for the presence of the HIV-1 p24 antigen as well as antibodies reactive against H IV-1 and HIV-2. A negative screen does not rule out an acute HIV infection. If acute HIV infection is suspected, testing should be repeated in 2 - 3 week s or HIV nucleic acid testing performed. Specimen Anatomical Collection Method Collection Time Receive d Time (Source) Location / / Volume Laterality Blood specimen 02/13/2019 10:10 9 (specimen) AM EDT 10:27 AM EDT Resulting Agency Comment Spec In Lab Cuba Martin MD IMMUNOLOGY ORDERABLES Performing Organization Address City/State/[place] [address] QuantiFERON-TB Gold (02/13/2019 10:10 AM EDT) [facility] Method Time Signature QFT Nil 0.080 IU/mL [facility] QFT TB Ag1-Nil 0.010 IU/mL [facility] QFT TB Ag2-Nil 0.020 IU/mL [facility] QFT >10.000 IU/mL [facility] Mitogen-Nil [facility] Quantiferon TB Negative Negative [facility] Quantiferon TB M. tuberculosis infection NOT likely [place]IM[facility] Villalobos A negative specimen should h ave a TB1 Ag minus Nil value and TB2 Ag minus Nil [facility] value of less than 0.35 IU/mL OR a TB1 Ag minus Nil or TB2 Ag minus Nil value [facility] greater than or equal to 0.35 IU/mL AND a TB Ag minus Nil value from the same HOSPITAL tube of less than 25% of the Nil value. A negative spe cimen must also have a LABORATORY mitogen minus Nil value greater than or equal to 0.5 IU/mL. A negative QFT-Plus result d oes not preclude the possibility of M. tuberculosis infection. False negative re sults can occur due to stage of infection (specimen obtained prior to the development of immune response), co- morbid conditions which affect immune function, or other immunological factors . Comment: The performance of the QFT-Plus assay vera s not been extensively evaluated with specimens from the following individuals : Individuals who have impaired or altered immune functions, such as those who have HIV infection or AIDS, those who vera ve transplantation managed with immunosuppressive treatment or others wh o receive immunosuppressive drugs (e.g., corticosteroids, methotrexate, az athioprine, cancer chemotherapy), those who have other clinical conditions, such as diabetes, silicosis, chronic renal failure, and hematological disorders (e. g., leukemia and lymphomas), or those with other specific malignancies (e.g., carcinoma of the head or neck and lung). Individuals younger than age 17 years women. Diagnosis of, or the exclusion of tuberc ulosis disease, and assessment of Latent Tuberculosis Infection (LTBI) req uires a combination of epidemiological, historical, Medical and diagnostic findi ngs that should be taken into account when interpreting QFT-Plus results. Specimen Anatomical Collection Method Collection Time Receive d Time (Source) Location / / Volume Laterality Blood specimen 02/13/2019 10:10 9 7:47 (specimen) AM EDT AM EDT Resulting Agency Comment Spec In Lab Cuba Martin MD CHEMISTRY ORDERABLES Performing Organization Address City/[facility] [place] [address] Hepatitis B Surface Antibody (02/13/2019 10:10 AM EDT) P athologist Signature HepB Surface 11.7 IU/L [facility] Ab Quant [facility] Comment: HepB Surface Ab Quant: Unvaccinated: < 8.5 IU/L Vaccinated: > 11.5 IU/L HepB Surface Ab Positive [facility] Comment: Patient is considered to be immune to HB V infection. Expected Results: Vaccinated: Positive Unvaccinated: Negative Specimen Anatomical Collection Method Collection Time Receive d Time (Source) Location / / Volume Laterality Blood specimen 02/13/2019 10:10 9 (specimen) AM EDT 10:27 AM EDT Resulting Agency Comment Spec In Lab Cuba Martin MD IMMUNOLOGY ORDERABLES Performing Organization Address [facility] [place] [address] Hepatitis C Antibody (02/13/2019 10:10 AM EDT) Analysis Performed At Patho logist Time Signature Hepatitis C Ab Negative Negative [facility] Specimen Anatomical Collection Method Collection Time Receive d Time (Source) Location / / Volume Laterality Blood specimen 02/13/2019 10:10 9 (specimen) AM EDT 10:27 AM EDT Resulting Agency Comment Spec In Lab Cuba Martin MD IMMUNOLOGY ORDERABLES Performing Organization Address City/[facility]/[place] [address] Hepatitis B Surface Antigen (02/13/2019 10:10 AM EDT) Analysis Performed At Patho logist Time Signature HepB Surface Negative Negative [facility] LABORATORY Specimen Anatomical Collection Method Collection Time Receive d Time (Source) Location / / Volume Laterality Blood specimen 02/13/2019 10:10 9 (specimen) AM EDT 10:27 AM EDT Resulting Agency Comment Spec In Lab Cuba Martin MD CHEMISTRY ORDERABLES Performing Organization Address City/State/ZIP Code Phon e Number [address] Hepatitis B Core Antibody, Total (02/13/2019 10:10 AM EDT) Analysis Performed At Patho logist Time Signature Hep B Core Ab Negative Negative [facility] Specimen Anatomical Collection Method Collection Time Receive d Time (Source) Location / / Volume Laterality Blood specimen 02/13/2019 10:10 9 (specimen) AM EDT 10:27 AM EDT Resulting Agency Comment Spec In Lab Cuba Martin MD CHEMISTRY ORDERABLES Performing Organization Address City/[facility]/ZIP Code Phon e Number [address] Uric acid (02/13/2019 10:10 AM EDT) P athologist Signature Uric Acid 6.4 2.5 - 6.5 [facility] mg/dL [facility] Specimen Anatomical Collection Method Collection Time Receive d Time (Source) Location / / Volume Laterality Blood specimen 02/13/2019 10:10 9 (specimen) AM EDT 10:27 AM EDT Resulting Agency Comment Spec In Lab Cuba Martin MD CHEMISTRY ORDERABLES Performing Organization Address City/State/ZIP [place] [address] (ABNORMAL) Myositis Antibody Panel Plus (02/13/2019 10:10 AM EDT) Component Value Ref Test Analysis Performed At [facility] Range Method Time Signature Myositis Ab [place] Panel Test ? Result ? Flag ??Unit ?? RefValue [facility] MyoMark Panel 3 Plus HOSPITA L ??Anti-Yolie-1 Ab ? <20 ?Units ??<20 LABORATORY ??PL-7 ? Negative ?Negative ??PL-12 ?Negative ?Negative ??EJ ? Negative ?Negative ??OJ ? Negative ?Negative ??SRP ?Negative ?Negative ??MO-2 ? Negative ?Negative ??Fibrillarin (U3 COUNTERINTELLIGENCE SPECIALIST) ? Negative ?Negative ??MDA-5 (P140)(CADM-140) ? <20 ?Units ??<20 ??NXP-2 (P140) ? <20 ?Units ??<20 ??TIF1 GAMMA (P155/140) ?<20 ?Units ??<20 ??Anti-PM/Scl-100 Ab ? <20 ?Units ??<20 ??U2 snRNP ? Negative ?Negative ??Anti-U1-COUNTERINTELLIGENCE SPECIALIST Ab ? <20 ?Units ??<20 ??Ku ? Negative ?Negative ??Anti-SS-A 52 kD Ab, IgG ?<20 ?Units ??<20 ? ADDITIONAL INFORMATION ------ ?EIA Interpretation: ?Negative ? <20 Units ?Weak Positive ?20-39 Units ?Moderate Positive ??40-80 Units ?Strong Positive ?>80 Units ?This panel was developed and its performance ?characteristics validated by [facility]. There is no FDA appr chyna ?assay for the above tests. As a lab developed test (LD T), ?approval or clearance by the FDA is not required. This test ?may be used for clinical purposes and should not be ?regarded as investigational or for research. ??Anti-LORI 1, IgG ?32 ?H ?Units ??<20 ? ADDITIONAL INFORMATION ------ ?EIA Interpretation: ?Negative ? <20 Units ?Weak Positive ?20-39 Units ?Moderate Positive ??40-80 Units ?Strong Positive ?>80 Units ?This panel was developed and its performance ?characteristics validated by [facility]. There is no FDA appr chyna ?assay for the above tests. As a lab developed test (LD T), ?approval or clearance by the FDA is not required. This test ?may be used for clinical purposes and should not be ?regarded as investigational or for research. ?Test Performed by: ?[facility] ?[id number] [facility] ?[place] [address] (A) Specimen Anatomical Collection Method Collection Time Receive d Time (Source) Location / / Volume Laterality Blood specimen 02/13/2019 10:10 9 (specimen) AM EDT 12:33 PM EDT Resulting Agency Comment Spec In Lab Cuba Martin MD IMMUNOLOGY ORDERABLES Performing Organization Address City/[facility]/[place] [address] CK (02/13/2019 10:10 AM EDT) P athologist Signature CK, Total 44 0 - 160 [facility] unit/L [facility] Specimen Anatomical Collection Method Collection Time Receive d Time (Source) Location / / Volume Laterality Blood specimen 02/13/2019 10:10 9 (specimen) AM EDT 10:27 AM EDT Resulting Agency Comment Spec In Lab Cuba Martin MD CHEMISTRY ORDERABLES Performing Organization Address City/[facility]/[place] [address] Aldolase (02/13/2019 10:10 AM EDT) P athologist Signature Aldolase 4.8 <7.7 unit/L [facility] Comment: Test Performed by: [address] [address] Specimen Anatomical Collection Method Collection Time Receive d Time (Source) Location / / Volume Laterality Blood specimen 02/13/2019 10:10 9 (specimen) AM EDT 12:33 PM EDT Resulting Agency Comment Spec In Lab Cuba Martin MD CHEMISTRY ORDERABLES Performing Organization Address City/State/[place] [address] Proteinase-3 Antibody (02/13/2019 10:10 AM EDT) P athologist Signature PR3 Ab 6.5 <=20.0 [facility] LABORATORY Specimen Anatomical Collection Method Collection Time Receive d Time (Source) Location / / Volume Laterality Blood specimen 02/13/2019 10:10 9 2:05 (specimen) AM EDT PM EDT Resulting Agency Comment Spec In Lab Cuba Martin MD CHEMISTRY ORDERABLES Performing Organization Address City/State/[place] [address] Myeloperoxidase Ab (02/13/2019 10:10 AM EDT) P athologist Signature MPO Ab 19.2 <=20.0 [facility] LABORATORY Specimen Anatomical Collection Method Collection Time Receive d Time (Source) Location / / Volume Laterality Blood specimen 02/13/2019 10:10 9 2:05 (specimen) AM EDT PM EDT Resulting Agency Comment Spec In Lab Cuba Martin MD CHEMISTRY ORDERABLES Performing Organization Address City/[facility]/[place] [address] Cytoplasmic Neutrophilic Ab (02/13/2019 10:10 AM EDT) P athologist Signature C-ANCA Negative Negative [facility] Comment: Test Performed by: [facility] [address], [place], [place] [address] P-ANCA Negative Negative [facility] Comment: Negative for cANCA and pANCA patterns by immunofluorescence. ADDITIONAL INFORMATIO N This test was developed and its performa nce characteristics determined by [facility] in a manner co nsistent with CLIA requirements. This test has not been phill ared or approved by the U.S. Food and Drug Administration. Test Performed by: [facility] - [facility] [address] [place], [place] [address] Specimen Anatomical Collection Method Collection Time Receive d Time (Source) Location / / Volume Laterality Blood specimen 02/13/2019 10:10 9 (specimen) AM EDT 12:57 PM EDT Resulting Agency Comment Spec In Lab Cuba Martin MD CHEMISTRY ORDERABLES Performing Organization Address City/[facility]/ZIP Code Phon e Number [address] C4 Complement (02/13/2019 10:10 AM EDT) P athologist Signature C4 Complement 32 10 - 40 [place] JERRY mg/dL [facility] Specimen Anatomical Collection Method Collection Time Receive d Time (Source) Location / / Volume Laterality Blood specimen 02/13/2019 10:10 9 (specimen) AM EDT 10:27 AM EDT Resulting Agency Comment Spec In Lab Cuba Martin MD CHEMISTRY ORDERABLES Performing Organization Address City/[facility]/ZIP Code Phon e Number [address] C3 Complement (02/13/2019 10:10 AM EDT) P athologist Signature C3 Complement 167 90 - 180 [facility] JERRY mg/dL [facility] Specimen Anatomical Collection Method Collection Time Receive d Time (Source) Location / / Volume Laterality Blood specimen 02/13/2019 10:10 9 (specimen) AM EDT 10:27 AM EDT Resulting Agency Comment Spec In Lab Cuba Martin MD CHEMISTRY ORDERABLES Performing Organization Address City/[facility]/ZIP Code Phon e Number [address] DNA Antibody (Double-Stranded) (02/13/2019 10:10 AM EDT) P athologist Signature DNA Ab (DS) Neg Neg [facility] Specimen Anatomical Collection Method Collection Time Receive d Time (Source) Location / / Volume Laterality Blood specimen 02/13/2019 10:10 9 2:05 (specimen) AM EDT PM EDT Resulting Agency Comment Spec In Lab Cuba Martin MD CHEMISTRY ORDERABLES Performing Organization Address City/[facility]/ZIP Code Phon e Number [address] Beta-2 glycoprotein antibodies (02/13/2019 10:10 AM EDT) Patholo gist Method Time Signature B2GPI IgG <9.4 <=20.0 [facility] unit(s) [facility] B2GPI IgM <9.4 <=20.0 [facility] unit(s) [facility] B2GPI Interp No comment [facility] Specimen Anatomical Collection Method Collection Time Receive d Time (Source) Location / / Volume Laterality Blood specimen 02/13/2019 10:10 9 2:05 (specimen) AM EDT PM EDT Resulting Agency Comment Spec In Lab Cuba Martin MD IMMUNOLOGY ORDERABLES Performing Organization Address City/[facility]/ZIP Code Phon e Number [address] Cardiolipin Antibody Screen (02/13/2019 10:10 AM EDT) P athologist Signature Cardiolipin IgG <9.4 <=14.9 GPL [facility] K unit(s) [facility] Comment: Ranges ?? GPL ------ ?? --- Negative ?? <=14.9 Indeterminate ??15.0 - 20.0 Low/Medium Positive 20.1 - 80.0 High Positive ??>80.0 Cardiolipin IgM 12.3 <=12.5 MPL unit(s) [facility] Comment: Ranges ?? MPL ------ ?? --- Negative ?? <=12.5 Indeterminate ??12.6 - 20.0 Low/Medium Positive 20.1 - 80.0 High Positive ??>80.0 Specimen Anatomical Collection Method Collection Time Receive d Time (Source) Location / / Volume Laterality Blood specimen 02/13/2019 10:10 9 2:05 (specimen) AM EDT PM EDT Resulting Agency Comment Spec In Lab Cuba Martin MD IMMUNOLOGY ORDERABLES Performing Organization Address City/State/[place] [address] Extractable Nuclear Antigen (PEE) Ab (02/13/2019 10:10 AM EDT) [facility] Method Time Signature PEE Ab [facility] Test ?Result ?Flag ??Unit ??RefValue [facility] Ab to Extractable Nuclear Ag Dat,S LABORATORY ??SS-A/Ro Ab, IgG, S ?<0.2 ?U ? <1.0 (Negative) ??SS-B/La Ab, IgG, S ?<0.2 ?U ? <1.0 (Negative) ??Sm Ab, IgG, S ? <0.2 ?U ? <1.0 (Negative) ??COUNTERINTELLIGENCE SPECIALIST Ab, IgG, S ?0.2 ? U ? <1.0 (Negative) ??Scl 70 Ab, IgG, S ? <0.2 ?U ? <1.0 (Negative) ??Yolie 1 Ab, IgG, S ? <0.2 ?U ? <1.0 (Negative) ?Test Performed by: ?[facility] ?[address] [place] [address] Specimen Anatomical Collection Method Collection Time Receive d Time (Source) Location / / Volume Laterality Blood specimen 02/13/2019 10:10 9 (specimen) AM EDT 12:57 PM EDT Resulting Agency Comment Spec In Lab Cuba Martin MD IMMUNOLOGY ORDERABLES Performing Organization Address City/[facility]/ZIP Code Phon e Number [address] JANETH (LEB/CGP) (02/13/2019 10:10 AM EDT) P athologist Signature JANETH Neg Neg [facility] Specimen Anatomical Collection Method Collection Time Receive d Time (Source) Location / / Volume Laterality Blood specimen 02/13/2019 10:10 9 2:05 (specimen) AM EDT PM EDT Resulting Agency Comment Spec In Lab Cuba Martin MD IMMUNOLOGY ORDERABLES Performing Organization Address City/[facility]/ZIP Code Phon e Number [place] [id number] [facility] [address] (ABNORMAL) Rheumatoid factor, quant (02/13/2019 10:10 AM EDT) P athologist Signature RF 17 (H) <=14 IU/mL [facility] Specimen Anatomical Collection Method Collection Time Receive d Time (Source) Location / / Volume Laterality Blood specimen 02/13/2019 10:10 9 (specimen) AM EDT 10:27 AM EDT Resulting Agency Comment Spec In Lab Cuba Martin MD IMMUNOLOGY ORDERABLES Performing Organization Address City/[facility]/[place] [address] Cyclic Citrullinated Peptide (02/13/2019 10:10 AM EDT) athologist Signature Anti-Cyc Cit <0.5 <=4.9 [facility] Peptide unit/mL [facility] Comment: An updated CCP assay reagent was impleme nted 03/08/17. Please note the modified reference interval. Specimen Anatomical Collection Method Collection Time Receive d Time (Source) Location / / Volume Laterality Blood specimen 02/13/2019 10:10 9 (specimen) AM EDT 10:27 AM EDT Resulting Agency Comment Spec In Lab Cuba Martin MD CHEMISTRY ORDERABLES Performing Organization Address City/State/ZIP Code Phon e Number [address] Sedimentation rate (02/13/2019 10:10 AM EDT) athologist Signature Sed Rate 17 0 - 20 [facility] mm/hr [facility] Specimen Anatomical Collection Method Collection Time Receive d Time (Source) Location / / Volume Laterality Blood specimen 02/13/2019 10:10 9 (specimen) AM EDT 10:27 AM EDT Resulting Agency Comment Spec In Lab Cuba Martin MD HEMATOLOGY ORDERABLES Performing Organization Address City/[facility]/ZIP Code Phon e Number [address] (ABNORMAL) Comprehensive metabolic panel (non-fasting) (02/13/2019 10:10 AM EDT) athologist [facility] Glucose Lvl 96 65 - 199 [facility] mg/dL [facility] Comment: Diabetes: >=200 mg/dL plus symp toms BUN 11 8 - 18 mg/dL [facility] Creatinine 0.61 (L) 0.70 - 1.20 mg/dL [facility]ORY Sodium 141 135 - 145 mmol/L [facility] Potassium 4.3 3.5 - 5.0 mmol/L [facility] Comment: Please note: ??Patients with WBC >100,00 0 may have falsely elevated Potassium levels. ??For accurate Potassium quantif ication in these patients send serum separator tube (gold top) for subsequent determinations. ??Contact the Clinical Chemistry Laboratory if there are any qu estions. Chloride 103 98 - 107 mmol/L [facility] CO2 26 22 - 31 mmol/L [facility] Anion Gap 12 5 - 15 mmol/L [facility] Calcium 10.1 8.5 - 10.5 mg/dL [facility] Total Protein 7.7 6.1 - 8.0 gm/dL [facility] Albumin 4.1 3.2 - 5.2 gm/dL [facility] AST 16 0 - 30 unit/L [facility] ALT 12 0 - 30 unit/L [facility] Alk Phos 93 40 - 104 unit/L [facility] Total Bilirubin 0.3 0.2 - 1.3 mg/dL [facility] Estimated GFR 97 >=60 mL/min/1.73 m?? [facility] Comment: The eGFR was calculated using the CKD-EP I equation. As with all creatinine based estimates of kidney function, eGFR values calculated with the CKD-EPI equation are not accurate in patients wi th acute kidney failure, extremes of body mass or the acutely ill. http://Vivakor/DHMCnkf eGFR 113 >=60 mL/min/1.73 m?? [facility] Comment: The eGFR was calculated using the CKD-EP I equation. As with all creatinine based estimates of kidney function, eGFR values calculated with the CKD-EPI equation are not accurate in patients wi th acute kidney failure, extremes of body mass or the acutely ill. http://Vivak[employer]/DHMCnkf Specimen Anatomical Collection Method Collection Time Receive d Time (Source) Location / / Volume Laterality Blood specimen 02/13/2019 10:10 9 (specimen) AM EDT 10:27 AM EDT Resulting Agency Comment Spec In Lab Cuba Martin MD CHEMISTRY ORDERABLES Performing Organization Address City/State/[place] [address] (ABNORMAL) CRP, acute inflammation (02/13/2019 10:10 AM EDT) athologist Signature CRP 29.0 (H) <=4.9 mg/L [facility] Specimen Anatomical Collection Method Collection Time Receive d Time (Source) Location / / Volume Laterality Blood specimen 02/13/2019 10:10 9 (specimen) AM EDT 10:27 AM EDT Resulting Agency Comment Spec In Lab Cuba Martin MD CHEMISTRY ORDERABLES Performing Organization Address City/State/[place] [address] documented in this encounter [...] feet Pain in limb Chronic cough Cough Pain in both hands Pain in both feet Pain in limb Rash Rash and other nonspecific skin eruption Inflammatory arthropathy Arthropathy, unspecified, site unspecifi ed Arthralgia, unspecified joint Myalgia Mylagia and myositis, unspecified Positive JANETH (antinuclear antibody) Other and unspecified nonspecific immuno logical findings Polyarthritis with positive rheumatoid f actor Pain in both hands Chronic pain of both knees Pain in both feet Pain in limb Chronic cough Cough Chronic pain of both knees documented in this encounter Care Teams Electromechanical Assembler Relationship Specialty Start Date End Date Samantha Michelle MD PCP - General 09/14/11 [address] [place] [address] documented as of this encounter
--- OUTSIDE RECORDS SUMMARY | 2022-09-15 01:27 | XMS_ITS | Encounter Summary ---
:1955 Author Organization [facility] [place] [address] Care Team Providers Name Role Phone Samantha Michelle MD Primary Care Provider Reason for Referral Diagnostic Test (Routine) - Closed Specialty Diagnoses / Procedures Referred By Contact Refer red To Contact Radiology Diagnoses Dermatomyositis Fidel Clifton MD [facility] Rad Nuclear Med Procedures PET CT Standard Skull Base to Mid[facility]Thigh [facility] [place] [id number] [place] [address] Referral ID Status Reason Start Date Expiration Date Visits V isits Requested Authorized [id number] Closed Specialty 05/23/2019 05/22/2020 1 1 Service Requested Reason for Visit Diagnostic Test (Routine) - Closed Specialty Diagnoses / Procedures Referred By Contact Refer red To Contact Radiology Diagnoses Dermatomyositis Fidel Clifton MD [facility] Rad Nuclear Med Procedures PET CT Standard Skull Base to Mid-Thigh [facility] [place] [address] [place] [address] Referral ID Status Reason Start Date Expiration Date Visits V isits Requested Authorized [id number] Closed Specialty 05/23/2019 05/22/2020 1 1 Service Requested Encounter Details Date Type Department Care Team Description 05/30/2019 Hospital Encounter Nuclear Medicine at [place], Naeem Olivares MD Dermatomyositis [facility] [address] Octavia [address] [place], [place] RD-DERMATOLOGY [address] [place] [address] [phone] Social History Tobacco Use Types Packs/Day Years [...] Burroughs MD [facility] DR [address]-DERMAT [place], [place] [address] (Wo rk) 10/02/2022 Office Visit Pulmonology Laney Calhoun M D [facility] Pulmonary Medici hillary [place], [place] [address] (Wo rk) 11/07/2022 Office Visit Ophthalmology Gifty Bernal MD [facility] [place], [place] [address] (Wo rk) documented as of this encounter Procedures Procedure Name Priority Date/Time Associated Diagnosis Comme [facility] NM PET CT SKULL Routine 05/30/2019 8:57 AM Dermatomyositis Res ults for this BASE TO MID-THIGH EDT procedure are in (LCSR) the results section. documented in this encounter Results (ABNORMAL) PET CT Standard Skull Base to Mid-Thigh (05/30/2019 8:57 AM EDT) Anatomical Region Laterality Modality Positron Emission To mography (PET) Specimen (Source) Anatomical Location Collection Method / Collectio n Time Received Time / Laterality Volume Impressions 05/30/2019 1:04 PM EDT 1. ??No evidence for FDG avid malignancy or metastasis. 2. ??Mild diffusely increased marrow act ivity throughout the axial and visualized appendicular skeleton likely represents reactive marrow. 3. ??Unexpected finding. FDG avid soft t issue density in the anterior uterine wall with contrast enhanced CT appearanc e suggestive of a fibroid. Recommend pelvic ultrasound for further characteri zation. I have personally reviewed the image(s) and the residents interpretation and agree with the findings, Brennon Palacios at 05/30/2019 1:04 PM Thank you for letting us participate in the care of this patient. For questions regarding this report, please contact e number below. ? Narrative 05/30/2019 1:04 PM EDT EXAMINATION: PET CT STANDARD SKULL BASE TO MID-THIGH CLINICAL HISTORY: Hx of Dermatomyosisits . CT scan to r/o malignancy shows lesions in Liver. Further imaging to r/o Lymphoma with PET CT scan recommended TECHNIQUE: Following IV injection of 18- capvuq-8-katzldilpmjw (FDG) a standard uptake of approximately 60 minutes, a no ncontrast CT scan followed by a PET scan were acquired from the base of the skull to mid thighs. The noncontrast CT was used for anatomic localization and photo n attenuation correction of the PET scan. Blood glucose level: 99 (mg/dL) FDG dose: 15.2 mCi COMPARISON: Chest CT 09/27/2017, CT chest/abdomen/pel vis 05/19/2019 FINDINGS: HEAD/NECK: Mild diffusely increased uptake througho ut the thyroid, which likely represents a thyroiditis consistent with patient on thyroid hormone replacement therapy. Normal activity in all remaining soft ti ssue regions. Scattered small CT visualized bilateral level 2 and 3 cervical lymphadenopathy, the largest measuring 10 mm in the right level 2/3 region (axial image 30); these are nonspecific and are favored to represent reactive lymphadenopathy. CHEST: Mildly FDG avid partially calcified righ t hilar lymphadenopathy, not significantly changed in size compared t o prior chest CT from 09/27/2017; given the size stability, these likely represe nt chronic inflammatory nodes which may be due to granulomatous disease. Normal activity in all remaining soft tissue regions. Coronary and aortic calcifications. ABDOMEN/PELVIS: Small FDG avid soft tissue density withi n the anterior uterus. Normal activity in all remaining soft tissue regions. Heterogeneous CT appearance of the splee n is better characterized on comparison contrast-enhanced CT. Several calcified granulomata in the spleen. Redemonstrated hepatomegaly and hepatic steatosis. Sigmoid diverticulosis without evidence of diverticulitis. Missy ent is status post cholecystectomy. SKELETON/EXTREMITIES: Mild diffusely increased marrow activity throughout the axial and visualized appendicular skeleton, likely reactive. Several dilated superficial veins within the anterior right thigh. Resulting Agency Comment Unexpected Finding Cici Roth MD IMG PET ORDERABLES documented in this encounter Visit Diagnoses Diagnosis Dermatomyositis documented in this encounter Administered Medications Inactive Administered Medications - up to 3 most recent administrations Medication Order MAR Action Action Date Dose Rate Site fludeoxyglucose (F-18) FDG Given 05/30/2019 6:53 AM EDT 15.2 mCi injection 15.2 mCi 15.2 mCi, Intravenous, ONCE PRN, 1 dose, Starting on Sun05/30/19 at 0658, Until Sun05/30/19 at 0653, Per Protocol, Routine documented in this encounter Care Teams Insulation Applicator Relationship Specialty Start Date End Date Samantha Michelle MD PCP - General 09/14/11 [address] [place] [address] documented as of this encounter
--- OUTSIDE RECORDS SUMMARY | 2022-09-15 01:27 | XMS_ITS | Encounter Summary ---
:1955 Author Organization [place] [address] Care Team Providers Name Role Phone Samantha Michelle MD Primary Care Provider Reason for Visit Reason Comments Iron Deficiency Venofer Encounter Details Date Type Department Care Team Description 02/28/2013 Office Visit Hematology Oncology at CLINIC, DR Payne on deficiency anemia [facility] HEM/ONC (Primary Dx) [address] [place] [phone] Social History Tobacco Use Types Packs/Day Years [...] Sign Reading Time Taken Comments Blood Pressure 114/66 02/28/2013 10:32 AM EDT Pulse 79 02/28/2013 10:32 AM EDT Temperature 36.7 ??C (98.1 ??F) 02/28/2013 10:32 AM EDT Respiratory Rate 18 02/28/2013 10:32 AM EDT Oxygen Saturation 100% 02/28/2013 10:32 AM EDT Inhaled Oxygen Concentration - - Weight - - Height - - Body Mass Index - - documented in this encounter Progress Notes Yasmeen Deleon RN - 02/28/2013 10:33 AM EDT Treatment Started:10:00 Treatment Ended:1230 Diagnosis: Iron Deficiency Anemia Treatment:Venofer 300 mg #4 of 4 Tolerated treatment well. States feeling better, less tired, less shortness of breath with activity. documented in this encounter Plan of Treatment Upcoming Encounters Date Type Specialty Care Team Description 09/26/2022 Office Visit Dermatology Ambreen Burroughs MD [facility] DR [address]-DERMAT [place], [place] [address] (Wo rk) 10/02/2022 Office Visit Pulmonology Laney Calhoun M D [facility] Pulmonary Medici hillary [place], [place] [address] (Wo rk) 11/07/2022 Office Visit Ophthalmology Gifty Bernal MD [facility] [place], [place] [address] (Wo rk) documented as of this encounter Visit Diagnoses Diagnosis Iron deficiency anemia - Primary Iron deficiency anemia, unspecified documented in this encounter Administered Medications Inactive Administered Medications - up to 3 most recent administrations Medication Order MAR Action Action Date Dose Rate Site iron sucrose (VENOFER) 300 Given 02/28/2013 10:25 AM EDT 300 mg 132.5 mL/hr mg in sodium chloride 0.9% 265 mL 300 mg, Intravenous, ONCE, 1 dose, On Sun02/28/13 at 1000, Administer over 120 Minutes documented in this encounter Care Teams Rewrite Editor Relationship Specialty Start Date End Date Samantha Michlele MD PCP - General 09/14/11 [address] [place] [address] documented as of this encounter
--- OUTSIDE RECORDS SUMMARY | 2022-09-15 01:27 | XMS_ITS | Encounter Summary ---
:1955 Author Organization [facility] [place] [address] Care Team Providers Name Role Phone Samantha Michelle MD Primary Care Provider Reason for Visit Reason Onset Date Comments Results 06/11/2019 Follow-up 06/11/2019 Encounter Details Date Type Department Care Team Description 06/11/2019 Telephone Rheumatology at [facility] Kimberli Cam RN Results; [place] [address] Social History Tobacco Use Types Packs/Day Years Used Date Former Smoker Cigarettes 0.25 7 Quit: 02/07/19 76 Smokeless Tobacco: Never Used Alcohol Use Standard Drinks/Week Comments No 0 (1 standard drink = 0.6 oz pure alcoho l) Sex Assigned at Date Recorded Female 03/23/2021 8:16 AM EDT documented as of this encounter Miscellaneous Notes Telephone Encounter - Kimberli Cam RN - 06/17/2019 9:41 AM EDT Images from the original note were not included. I called Brandi back with this reply from : Cuba Martin MD to Me ?? 9:00 AM I spoke to her on the phone so I do not remember if this was before or after this message. ??Radiology did not offer many differentials that would be alarming but they generally would not recommend andadditional study if not necessary. ?? I am not overly concerned and as I explained to her that this has to be done urgently especially in the setting of recent knee surgery, ??But her ??diagnosis does run with a risk of malignancy as she is aware by our conversation. ??So all possible avenues of concern should be investigated which is my recommendation Cuba Paz sated that she would like to discuss this matter with further at her appointment on 06/23. She thanked me for the call and looks forward to her visit. Telephone Encounter - Kimberli Cam RN - 06/13/2019 12:47 PM EDT Brandi states she has already done many transvaginal ultrasounds as she had experienced gynecologicalissues in the past. She had a D&C done as well as an endometrial ablation. She got these done due to bleeding, and is aware that she has multiple fibroids that show up on these types of scans. Her last Transvaginal US was done in either 2010 or 2011 by a previous [facility] provider, and she has experienced no change since. The procedures (D&C as well as the ablation) were also done in that timeframe. Brandi states that she would like to opt out of this for now, and will report back if she experiences any change. She will also notify her PCP about this finding. In regards to the MRI finding, Brandi states that she has a known history of lipomas and she has themall over her body. This is in her family history as well. Brandi states she would rather not get another MRI unless feels this is really something that needs to be evaluated more urgently. She will report back if there are any changes in the area, or any further concerns arise. Lastly, Brandi tells me that she is recovering well from her knee replacement done on 06/04. I thankedBrandi for her time and let her know I would send her messages to for an update and call kecia if indicated. I also welcomed her to call us at anytime if needed. Telephone Encounter - Kimberli Cam RN - 06/11/2019 11:52 AM EDT I left Brandi a voicemail asking for a RTC to discuss her imaging results. also sent her a [employer] message with these findings which she did read. I left my name and callback number for her and will await her call. 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 Tranvaginal US rec also placed - referral to OB Abnromal MRI leg Repeat MRI wwo contrast Thank you cuba documented in this encounter Plan of Treatment Upcoming Encounters Date Type Specialty Care Team Description 09/26/2022 Office Visit Dermatology Ambreen Burroughs MD [facility] DR SHAYY CASTILLO-DERMAT [place], [place] [address] (Wo rk) 10/02/2022 Office Visit Pulmonology Laney Calhoun [facility] Pulmonary Mati thornton [place], [place] [address] (Wo rk) 11/07/2022 Office Visit Ophthalmology Gifty Bernal MD [facility] [address] [place] [address] (Wo rk) documented as of this encounter Visit Diagnoses Not on filedocumented in this encounter Care Teams Epic Director Relationship Specialty Start Date End Date Samantha Michelle MD PCP - General 09/14/11 [address] [place] [address] documented as of this encounter
--- OUTSIDE RECORDS SUMMARY | 2022-09-15 01:27 | XMS_ITS | Encounter Summary ---
:1955 Author Organization [facility] [place] [address] Care Team Providers Name Role Phone Samantha Michelle MD Primary Care Provider Reason for Visit Reason Comments Rash Encounter Details Date Type Department Care Team Description 05/06/2019 Office Visit Dermatology at [facility] Fidel Clifton MD Dermatitis [address] [place] [address] [facility] [phone] [place], [place] [address] (Wo rk) Social History Tobacco Use Types Packs/Day Years Used Date Former Smoker Cigarettes 0.25 7 Quit: 02/07/19 76 Smokeless Tobacco: Never Used Alcohol Use Standard Drinks/Week Comments No 0 (1 standard drink = 0.6 oz pure alcoho l) Sex Assigned at Date Recorded Female 03/23/2021 8:16 AM EDT documented as of this encounter Progress Notes Fidel Clifton - 05/06/2019 9:30 AM EDT Images from the original note were not included. DERMATOLOGY - NEW PATIENT NOTE Date of service: 05/06/2019 Brandi Ruiz : 1955, 63 y.o. Chief Complaint: Chief Complaint Patient presents with ??? Rash HPI: Brandi Ruiz is a 63 y.o. female with the following concerns: Here today for rash that she has had off and on for the past year. [place] thought it was a rash from sunscreen. It showed again when she was in [place] this year. It is on her arms, face, chest, shoulders. She has not treated it with anything. It does not itch. She has been seen by her Chronometer Assembler and has had a lot of blood work done as he thought she might have Lupus.[place] ill before this all started Relevant Skin History: - Okay to leave detailed message with results? 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 levothyroxine (SYNTHROID) 125 mcg Tablet daily. [...] the scalp, face, ears, neck, back, chest, axillae, abdomen, right and left upper extremities, right and left lower extremities, hands, feet, and buttocks was normal with theexception of the findings listed below. Genitalia not examined. - A female nurse was present and on standby during my examination. Diagnosis/Skin findings/Assessment/Plan: 1. Schambergs pigmented purpura - cayenne pepper red brown 1mm macules scattered on the bilateral lower legs -advised benign condition Plan: - Discussed elevation, compression stockings and possible trial of Vitamin C. Pt wears compression stockings Not interested in other treatments at present 2. Dermatomyositis vs SCLE vs. Less likely PMLE -arms, thighs, chest: faint erythematous papules coalescing into faint erythematous patch on the BL arms and on the forehead. Back clear. RF factor positive and JANETH negative with positive myositis panel to LORI IgG antibody No involvement of nails. No hx of Raynauds. Plan: Punch biopsy further recommendations to come based on biopsy results Procedure: Punch Biopsy Punch biopsy: 4 mm Location: right arm Suture: 4-0 Proline The patient's consent was obtained. Risk of infection, scarring, nerve damage, pigment change, numbness, incomplete removal, recurrence, bleeding, pain and uncommonly so, allergic reaction to anesthesia were all reviewed. Sterile preparation was used. Anesthesia obtained with 1% lidocaine with epinephrine. A punch biopsy was obtained and closed with simple interrupted sutures. The specimen was sent to pathology for histologic evaluation. Vaseline and bandaid were applied. Wound care was reviewed andwritten instructions were given. S/R in 10-14days. RTC: PND biopsy results The following photos were obtained with patient consent: Note initiated by PLACIDO ASHLEY LPN. I, PLACIDO ASHLEY LPN, have performed the documentation for this encounter in the presence of and acting as a scribe for Fidel Clifton MD. I performed the services which were documented by the scribe, and I agree with the accuracy of the documentation in this encounter. Fidel Clifton MD Reviewed and signed by Fidel Clifton MD Resident in Dermatology [facility] Patient seen in conjunction with staff physicist acoustics: Belle Greer MD Section of Dermatology [facility] Belle Greer MD - 05/06/2019 9:30 AM EDT I directly supervised Dr. Clifton during this office visit. Dr. Clifton presented the history and physical exam to me. I then saw and examined this patient with Dr. Clifton. We reviewed the history andpertinent details and I confirmed the physical findings. I agree with the details of the history and physical exam as documented in Dr. Clifton' note. BELLE GREER MD Staff Physician documented in this encounter Plan of Treatment Upcoming Encounters Date Type Specialty Care Team Description 09/26/2022 Office Visit Dermatology Ambreen Burroughs MD [facility] DR SHAYY CASTILLO-DERMAT [place], [place] [address] (Wo rk) 10/02/2022 Office Visit Pulmonology [place] [facility] Pulmonary Medicguido thornton [place], [place] [address] (Wo rk) 11/07/2022 Office Visit Ophthalmology Gifty Bernal MD [facility] [place], [place] [address] (Wo rk) documented as of this encounter Procedures Procedure Name Priority Date/Time Associated Diagnosis Comme [facility] SURGICAL PATHOLOGY Routine 05/06/2019 10:33 AM Celina championts for this REPORT EDT procedure are i n the results section. SPECIMEN TO Routine 05/06/2019 10:33 AM Dermatitis Results for this PATHOLOGY EDT procedure are i n the results section. documented in this encounter Results Surgical Pathology Report (05/06/2019 10:33 AM EDT) Component Value Ref Test Analysis Performed At [facility] Method Time Signature Surgical [id number] ? Location: [facility] Report The signing pathologist has (i) examined the relevant preparation(s) for the [facility]ORIAL specimen(s) and (ii) rendered or confirmed the diagnosis(es) . HOSPITAL LABORATORY . ?Surgic al Pathology DIAGNOSIS Skin, right upper arm, punch biopsy: - Vacuolar interface dermatitis ?? (see discussion) Electronically signed by: ??Elier FREEMAN, PhD, Mikki Verified: ??05/09/2019 ?Dermatopathologist Performed at: ??-[facility] Dept. of Pathology, [place], [place] DISCUSSION Sections show a basket weave stratum corneum with focal parakeratosis overlying a thin epidermis. Subtle va cuolar interface change is present with few scattered dyskeratotic cells. There i s associated superficial perivascular lymphohistiocytic inflammation. Papillary sybil mal edema and deep perivascular inflammation are not seen to suggest polymorphou s light eruption. ?Multiple deeper sections have been examined. Overall, the findings are co nsistent with the clinical impression of connective tissue disease, including d ermatomyositis and lupus. Similar histologic changes may be seen in viral exanth em or drug reaction. ?Clinicopathologic correlation is recommended. CLINICAL INFORMATION Specimen Submitted: A - Skin, right upper arm, punch (1) Clinical History and Diagnosis: Dermatomyositis vs. SCLE vs. less likely PMLE-arms, thighs, chest: Faint erythematous papules coalescing into adin nt erythematous patch on the bilateral arms and on the forehead. Back clear. RF fa ctor positive and JANETH negative with positive myositis panel to LORI IgG antibody. No involvement of nails. N o history of Raynauds. SPECIMEN PROCESSING A - Labeled/Fixative: Patient demographics, formalin. Quantity/Size: ??Single, 0.4 cm. Tissue Description: Punch of murillo-white skin. Sections/Processing: Bisected and entirely submitted in 1 cassette labeled A1. ??pps Specimen (Source) Anatomical Collection Method Collection Time Re ceived Time Location / / Volume Laterality 05/06/2019 10:33 AM EDT Fidel Clifton MD PATHOLOGY/CYTOLOGY ORDERABLE S Performing Organization Address City/State/ZIP Code [place] [address] Specimen to Pathology (05/06/2019 10:33 AM EDT) Specimen Anatomical Collection Method Collection Time Receive d Time (Source) Location / / Volume Laterality AP Specimen 05/06/2019 10:33 05/06/2019 6:17 AM EDT PM EDT Narrative [facility] - 05/06/2019 6:17 PM EDT Specimen requisition ordered. ??Separate Pathology report to follow Resulting Agency Comment Spec In Lab Belle Greer MD PATHOLOGY/CYTOLOGY ORDERABLE S Performing Organization Address City/State/[place] [address] documented in this encounter Visit Diagnoses Diagnosis Dermatitis Contact dermatitis and other eczema, due to unspecified cause documented in this encounter Care Teams Insulation Worker Apprentice Relationship Specialty Start Date End Date Samantha Michelle MD PCP - General 09/14/11 [address] [place] [address] documented as of this encounter
--- OUTSIDE RECORDS SUMMARY | 2022-09-15 01:27 | XMS_ITS | Encounter Summary ---
:1955 Author Organization [facility] [place] [address] Care Team Providers Name Role Phone Samantha Michelle MD Primary Care Provider Reason for Visit Diagnostic Test (Routine) - Closed Specialty Diagnoses / Procedures Referred By Contact Refer red To Contact Radiology Diagnoses Dermatomyositis Fidel Clifton MD Con Rad Cat Scan Procedures CT Chest Abdomen Pelvis w Contrast (Generic) CT Chest Abdomen Pelvis wwo Contrast [facility] DR Otto [facility] [place] [address] [place] [address] Referral ID Status Reason Start Date Expiration Date Visits V isits Requested Authorized [id number] Closed Specialty 05/12/2019 05/11/2020 1 1 Service Requested Encounter Details Date Type Department Care Team Description 05/19/[address] Scan at [facility] Milan Ramsey, Dermatomyositis [facility] [place] [address] [facility] [phone] RD-DERMATOLOGY [place], [place] [address] Social History Tobacco Use Types [...] 09/26/2022 Office Visit Dermatology Ambreen Burroughs MD [facility] DR SHAYY CASTILLO-DERMAT [place], [place] [address] (Wo rk) 10/02/2022 Office Visit Pulmonology Laney Calhoun [facility] Pulmonary Medicguido thornton [place], [place] [address] (Wo naif) 11/07/2022 Office Visit Ophthalmology Gifty Bernal MD [facility] [place], [place] [address] (Wo rk) documented as of this encounter Procedures Procedure Name Priority Date/Time Associated Diagnosis Comme nts CT CHEST ABDOMEN Routine 05/19/2019 4:48 PM Dermatomyositis Re sults for this PELVIS W CONTRAST EDT procedure are in (GENERIC) the results section. documented in this encounter Results CT Chest Abdomen Pelvis w Contrast (Generic) (05/19/2019 4:48 PM EDT) Anatomical Region Laterality Modality Abdomen, Pelvis Computed Tomography Specimen (Source) Anatomical Location Collection Method / Collectio n Time Received Time / Laterality Volume Impressions 05/20/2019 7:49 AM EDT 1. 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 2. ??Hepatomegaly with hepatic steatosis . A PET/CT may be helpful for further evaluation. If these exhibit increased u ptake on the PET/CT, then that would be suspicious for lymphoma. 3. ??Scattered calcified RIGHT hilar lym ph nodes and calcifications in the spleen, compatible with old granulomatou s disease. Thank you for letting us participate in the care of this patient. For questions regarding this report, please contact e number below. ? Narrative 05/20/2019 7:49 AM EDT EXAMINATION: CT CHEST ABDOMEN PELVIS W CONTRAST (GENERIC) CLINICAL HISTORY: FIndings of Dermatomyo sitis imaging study to r/o underlying malignancy TECHNIQUE: Helical CT of the chest, abdo men, and pelvis was performed following intravenous administration of contrast. Administered 120.0 ml of OMNIPAQUE 350.00 mg/ml. Oral contrast was administ ered. COMPARISON: CTA of the chest from from [facility] FINDINGS: Chest: Lungs and large airways: Normal. Pleura: No effusion. Heart/vasculature: Normal. Lymph nodes: Scattered calcified RIGHT h ilar nodes, compatible with old granulomatous disease. Mediastinum and lawrence: No adenopathy Abdomen/pelvis: Liver: Diffuse hepatic steatosis. Hepato megaly, measuring 26 cm in cranial to caudal dimension. No hepatic lesions. Bile ducts: Nondilated. Gallbladder: Postcholecystectomy Pancreas: Normal attenuation without daquan theresa dilatation. Spleen: Scattered punctate calcification s, compatible with old granulomatous disease. Indeterminate multiple varied s ized splenic hypodense lesions scattered throughout the splenic parenchyma. The l argest measures approximately 1.9 cm. No splenomegaly Adrenals: Normal. Kidneys: Normal. Symmetric renal enhance ment. No renal collecting system obstruction bilaterally Urinary Bladder: Normal. Vasculature: No aneurysm. Lymph Nodes: ??No enlarged lymph nodes. Bowel: Nondilated, no wall thickening. ? ? Peritoneum and mesentery: No ascites, fr ee air, or loculated fluid collection. No mesenteric inflammation. Abdominal wall: Normal. Reproductive organs: 2.4 cm enhancing fo cus seen along the anterior surface of the uterus, compatible with a small fibr oid. No adnexal masses. Osseous structures: No suspicious lesion s. Procedure Note Jason Coley MD - 05/20/2019Form atting of this note might be different from the original. EXAMINATION: CT CHEST ABDOMEN PELVIS W CONTRAST (GENERIC) CLINICAL HISTORY: FIndings of Dermatomyo sitis imaging study to r/o underlying malignancy TECHNIQUE: Helical CT of the chest, abdo men, and pelvis was performed following intravenous administration of contrast. Administered 120.0 ml of OMNIPAQUE 350.00 mg/ml. Oral contrast was administ ered. COMPARISON: CTA of the chest from from [facility] FINDINGS: Chest: Lungs and large airways: Normal. Pleura: No effusion. Heart/vasculature: Normal. Lymph nodes: Scattered calcified RIGHT h ilar nodes, compatible with old granulomatous disease. Mediastinum and lawrence: No adenopathy Abdomen/pelvis: Liver: Diffuse hepatic steatosis. Hepato megaly, measuring 26 cm in cranial to caudal dimension. No hepatic lesions. Bile ducts: Nondilated. Gallbladder: Postcholecystectomy Pancreas: Normal attenuation without daquan theresa dilatation. Spleen: Scattered punctate calcification s, compatible with old granulomatous disease. Indeterminate multiple varied s ized splenic hypodense lesions scattered throughout the splenic parenchyma. The l argest measures approximately 1.9 cm. No splenomegaly Adrenals: Normal. Kidneys: Normal. Symmetric renal enhance ment. No renal collecting system obstruction bilaterally Urinary Bladder: Normal. Vasculature: No aneurysm. Lymph Nodes: No enlarged lymph nodes. Bowel: Nondilated, no wall thickening. Peritoneum and mesentery: No ascites, fr ee air, or loculated fluid collection. No mesenteric inflammation. Abdominal wall: Normal. Reproductive organs: 2.4 cm enhancing fo cus seen along the anterior surface of the uterus, compatible with a small fibr oid. No adnexal masses. Osseous structures: No suspicious lesion s. IMPRESSION 1. 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 2. Hepatomegaly with hepatic steatosis. A PET/CT may be helpful for further evaluation. If these exhibit increased u ptake on the PET/CT, then that would be suspicious for lymphoma. 3. Scattered calcified RIGHT hilar lymph nodes and calcifications in the spleen, compatible with old granulomatou s disease. Thank you for letting us participate in the care of this patient. For questions regarding this report, please contact th e number below. Milan Ramsey MD IMG CT ORDERABLES documented in this encounter Visit Diagnoses Diagnosis Dermatomyositis documented in this encounter Administered Medications Inactive Administered Medications - up to 3 most recent administrations Medication Order MAR Action Action Date Dose Rate Site iohexol (OMNIPAQUE) 350 mg/mL Given 05/19/2019 4:48 PM EDT 120 m Ls solution 0-200 mL 0-200 mL, Intravenous, ONCE PRN, 1 dose, Starting on Sun05/19/19 at 1627, Until Sun05/19/19 at 1648, Per Protocol, Warning Vesicant/Irritant Medication , Radiology Contrast, Routine iohexol (OMNIPAQUE) 350 mg/mL solution 0-50 Given 05/19/2019 4:48 PM EDT 50 mLs mL 0-50 mL, Oral, ONCE PRN, 1 dose, Starting on Sun05/19/19 at 1627, Until Sun05/19/19 at 1648, Per Protocol, Warning Vesicant/Irritant Medication , Radiology Contrast, Routine documented in this encounter Care Teams Vice President Fixed Income Relationship Specialty Start Date End Date Samantha Michelle MD PCP - General 09/14/11 [address] [place] [address] documented as of this encounter
--- OUTSIDE RECORDS SUMMARY | 2022-09-15 01:27 | XMS_ITS | Encounter Summary ---
:1955 Author Organization [facility] [place] [address] Care Team Providers Name Role Phone Samantha Michelle MD Primary Care Provider Reason for Referral Diagnostic Test (Routine) - Closed Specialty Diagnoses / Procedures Referred By Contact Refer red To Contact Radiology Diagnoses Inflammatory arthropathy Dermatomyositis Cuba Martin MD [facility] Rad Mri Procedures MRI Lower Extremity Non Joint wo Contrast [place], [place] [address] [place] [phone] Referral ID Status Reason Start Date Expiration Date Visits V isits Requested Authorized [id number] Closed Specialty 05/13/2019 05/12/2020 1 1 Service Requested Reason for Visit Diagnostic Test (Routine) - Closed Specialty Diagnoses / Procedures Referred By Contact Refer red To Contact Radiology Diagnoses Inflammatory arthropathy Dermatomyositis Cuba Martin MD [facility] Rad Mri Procedures MRI Lower Extremity Non Joint wo Contrast [place], [place] [address] [place] [phone] Referral ID Status Reason Start Date Expiration Date Visits V isits Requested Authorized [id number] Closed Specialty 05/13/2019 05/12/2020 1 1 Service Requested Encounter Details Date Type Department Care Team Description 06/02/2019 Hospital Encounter MRI at [facility] Cuba Martin, Inflammatory arthropathy; [facility] [address] [facility] [id number] [place], [place] [phone] [facility] Social History Tobacco Use Types Packs/Day Years [...] Visit Dermatology Ambreen Burroughs MD [facility] ER DR SHAYY CASTILLO-DERMAT [place], [place] [address] (Wo rk) 10/02/2022 Office Visit Pulmonology Laney Calhoun M D [facility] er Pulmonary Medicguido [place], [place] 0375 (Wo rk) 11/07/2022 Office Visit Ophthalmology Gifty Bernal MD [facility] er [place], [place] 0[address] (Wo rk) documented as of this encounter Procedures Procedure Name Priority Date/Time Associated Diagnosis Comme nts MRI LOWER EXTREMITY Routine 06/02/2019 7:56 AM Inflammatory Re sults for this NON JOINT WO EDT arthropathy procedure are in CONTRAST Dermatomyositis the results section. documented in this encounter [...] below. ? Electronically signed by: RIAN Hernandez [facility] ([phone]), at 06/02/2019 11:46 AM Narrative 06/02/2019 11:46 AM EDT EXAMINATION: MRI [...] diverticulosis. Procedure Note Loyda Fletcher MD - 07/08/2019Formatt ing of this note might be different [...] Dermatomyositis documented in this encounter Care Teams [employer] Professional Relationship Specialty Start Date End Date Samantha Michelle MD PCP - General 09/14/11 [address] [place] [address] documented as of this encounter
--- OUTSIDE RECORDS SUMMARY | 2022-09-15 01:27 | XMS_ITS | Encounter Summary ---
:1955 Author Organization [facility] [place] [address] Care Team Providers Name Role Phone Samantha Michelle MD Primary Care Provider Encounter Details Date Type Department Care Team Description 05/12/2019 Telephone Dermatology at [facility] Fidel Clifton MD [address] [place] [address] [facility] [phone] [place], [place] 0[address] (Wo rk) Social History Tobacco Use Types Packs/Day Years Used Date Former Smoker Cigarettes 0.25 7 Quit: 02/07/19 76 Smokeless Tobacco: Never Used Alcohol Use Standard Drinks/Week Comments No 0 (1 standard drink = 0.6 oz pure alcoho l) Sex Assigned at Date Recorded Female 03/23/2021 8:16 AM EDT documented as of this encounter Miscellaneous Notes Telephone Encounter - Karmen Pedro - 05/12/2019 10:22 AM EDT Patient reached out returning Dr. Clifton' call. The best number to reach her is [phone]. Karmen Pedro, Clinical [place] documented in this encounter Plan of Treatment Upcoming Encounters Date Type Specialty Care Team Description 09/26/2022 Office Visit Dermatology Ambreen Burroughs MD [facility] [address]-DERMAT BERTHA [place], [place] 0[address] (Wo rk) 10/02/2022 Office Visit Pulmonology Laney Calhoun M D [facility] Pulmonary Medicguido [place], [place] 0375 (Wo rk) 11/07/2022 Office Visit Ophthalmology Gifty Bernal MD [facility] [place], [place] [address] (Wo rk) documented as of this encounter Visit Diagnoses Not on filedocumented in this encounter Care Teams Interpreter Translator Relationship Specialty Start Date End Date Samantha Michelle MD PCP - General 09/14/11 [address] [place] [address] documented as of this encounter
--- OUTSIDE RECORDS SUMMARY | 2022-09-15 01:27 | XMS_ITS | Encounter Summary ---
:1955 Author Organization [facility] [place] [address] Care Team Providers Name Role Phone Samantha Michelle MD Primary Care Provider Reason for Referral Diagnostic Test (Routine) - Closed Specialty Diagnoses / Procedures Referred By Contact Refer red To Contact Radiology Diagnoses Abnormal MRI Cuba Martin MD [facility] Rad Mri Procedures MRI Lower Extremity Non [place] [address] [place] [address] Referral ID Status Reason Start Date Expiration Date Visits V isits Requested Authorized [id number] Closed Specialty 06/06/2019 06/05/2020 1 1 Service Requested onsultation (Routine) - Specialty Diagnoses / Procedures Referred By Contact Refer red To Contact Diagnoses Abnormal tissue in uterus [place] [address] Referral ID Status Reason Start Date Expiration Date Visits V isits Requested Authorized [id number] Consult, 06/06/2019 12/03/2019 1 1 Test & Treat Encounter Details Date Type Department Care Team Description 05/12/[address] Scan at [facility] Sabrina Suarez; [facility] Jonathan Bah Abnormal tissue in uterus; [place] [address] Social History Tobacco Use Types Packs/Day [...] Ambreen Burroughs MD [facility] ER DR SHAYY CASTILLO-DERMAT [place] 0[address] (Wo rk) 10/02/2022 Office Visit Pulmonology Laney Calhoun M D [facility] Pulmonary Medicguido thornton [place], [place] 0[address] (Wo rk) 11/07/2022 Office Visit Ophthalmology Gifty Bernal MD [facility] er [place] 0[address] (Wo rk) Scheduled Referrals Name Type Priority Associated Diagnoses Order S chedule Referral to Ob-Manager Floor Outpatient Referral Routine Abnormal tissue in Ordered: uterus 06/06/2019 documented as of this encounter Results MRI [...] s equences, there is signal dropout multiple inbound customer service representative levels of the di stal femoral [...] Jame Monroy [facility] ([phone]), at 09/02/2019 1:53 PM Narrative 09/02/2019 1:53 [...] and T1 h ypointense signal. Procedure Note SinKarmen MD - 09/02/2019Formattin g of this note [...] s equences, there is signal dropout multiple inbound customer service representative levels of the di stal femoral [...] Jame Monroy [facility] ([phone]), at 09/02/2019 1:53 PM Cuba Martin MD IMG MRI ORDERABLES documented in this encounter Visit Diagnoses Diagnosis Rash Rash and other nonspecific skin eruption Abnormal tissue in uterus Abnormal MRI Other nonspecific (abnormal) findings on radiological and other examinations of body structure Abnormal MRI Other nonspecific (abnormal) findings on radiological and other examinations of body structure documented in this encounter Care Teams Sheriff Deputy Relationship Specialty Start Date End Date Samantha Michelle MD PCP - General 09/14/11 [address] [place] [address] documented as of this encounter
--- OUTSIDE RECORDS SUMMARY | 2022-09-15 01:27 | XMS_ITS | Encounter Summary ---
:1955 Author Organization [facility] [place] [address] Care Team Providers Name Role Phone Samantha Michelle MD Primary Care Provider Encounter Details Date Type Department Care Team Description 06/04/2019 Telephone Dermatology at [facility] Fidel Clifton MD [address] [place] [address] [facility] [phone] [place], [place] [address] (Wo rk) Social History Tobacco [...] Notes Telephone Encounter - Lisset Escoto - 06/11/2019 3:06 PM EDT I received a call back from Brandi Ruiz to schedule for our next derm/rheum clinic. She scheduledfor 08/04. She has a follow up scheduled with Dr. Clifton and she is wondering if she should keep thator just come to the derm/rheum clinic. I told her I would send a message to Dr. Clifton to see how we should proceed. Telephone Encounter - JevonLisset Trent - 06/04/2019 1:52 PM EDT I left a voicemail for Brandi Ruiz requesting a call back to schedule for our next derm/rheum clinic Telephone Encounter - Lisset Escoto - 06/04/2019 1:52 PM EDT ----- Message from Fidel Clifton MD sent at 06/02/2019 1:57 PM EDT ----- Regarding: schedule pt in Derm Rheum clinic Please schedule pt in Derm Rheum clinic for f/u pt aware someone would be calling [employer] documented in this encounter Plan of Treatment Upcoming Encounters Date Type Specialty Care Team Description 09/26/2022 Office Visit Dermatology Ambreen Burroughs MD [facility] [address]-DERMAT [place], [place] [address] (Wo rk) 10/02/2022 Office Visit Pulmonology Laney Calhoun M D [facility] Pulmonary Medicguido thornton [place], [place] [address] (Wo rk) 11/07/2022 Office Visit Ophthalmology Gifty Bernal MD [facility] [place], [place] [address] (Wo rk) documented as of this encounter Visit Diagnoses Not on filedocumented in this encounter Care Teams Animal Treatment Investigator Relationship Specialty Start Date End Date Samantha Michelle MD PCP - General 09/14/11 [address] [place] [address] documented as of this encounter
--- OUTSIDE RECORDS SUMMARY | 2022-09-15 01:27 | XMS_ITS | Encounter Summary ---
:1955 Author Organization [facility] [place] [address] Care Team Providers Name Role Phone Samantha Michelle MD Primary Care Provider Encounter Details Date Type Department Care Team Description 02/24/2019 Hospital Encounter [facility] at [facility] Cuba Martin, Pain in both feet [address] [facility] [address] [facility] [address] [place] [phone] [place] [id number] Social History Tobacco Use Types Packs/Day Years [...] Dermatology Ambreen Burroughs MD [facility] [address]-DERMAT [place], [place] [address] (Wo rk) 10/02/2022 Office Visit Pulmonology Laney Calhoun M D [facility] Pulmonary Medici hillary [place], [place] [address] (Wo rk) 11/07/2022 Office Visit Ophthalmology Gifty Bernal MD [facility] [place], [place] [address] (Wo rk) documented as of this encounter Procedures Procedure Name Priority Date/Time Associated Diagnosis Comme nts XR FOOT MIN 3 VIEWS Routine 02/24/2019 11:19 AM Pain in both f eet Results for this BILAT EDT procedure are i n the results section. documented in this encounter Results XR Foot Min 3 views Bilat (Generic) [...] report, please contact th e number below. ? Narrative 02/24/2019 2:50 [...] encounter Visit Diagnoses Diagnosis Pain in both feet Pain in limb documented in this encounter Care Teams Smutter Relationship Specialty Start Date End Date Samantha Michelle MD PCP - General 09/14/11 [address] [place] [address] documented as of this encounter
--- OUTSIDE RECORDS SUMMARY | 2022-09-15 01:27 | XMS_ITS | Encounter Summary ---
:1955 Author Organization [facility] [place] [address] Care Team Providers Name Role Phone Samantha Michelle MD Primary Care Provider Reason for Referral Diagnostic Test (Routine) - Closed Specialty Diagnoses / Procedures Referred By Contact Refer red To Contact Radiology Diagnoses Dermatomyositis Fidel Clifton MD [facility] Rad Nuclear Med Procedures PET CT Standard Skull Base to Mid-Thigh [facility] [place] [address] [place] [address] Referral ID Status Reason Start Date Expiration Date Visits V isits Requested Authorized [id number] Closed Specialty 05/23/2019 05/22/2020 1 1 Service Requested Encounter Details Date Type Department Care Team Description 05/23/2019 Orders Only Dermatology at [facility] Ofe Clifton MD Dermatomyositis Road [facility] [address] [facility] [place] [address] [place] [address] [phone] (Wo rk) Social History Tobacco Use Types [...] 09/26/2022 Office Visit Dermatology Ambreen Burroughs MD [facility] [address]-DERMAT BERTH[place], [place] [address] (Wo rk) 10/02/2022 Office Visit Pulmonology Laney Calhoun M D [facility] Pulmonary Medicguido thornton [place], [place] [address] (Wo rk) 11/07/2022 Office Visit Ophthalmology Gifty Bernal MD [facility] [place], [place] [address] (Wo rk) documented as of this encounter Results (ABNORMAL) PET CT Standard [...] e number below. ? Electronically signed by: Brennon Palacios [facility] ([phone]), at 05/30/2019 1:04 PM Narrative 05/30/2019 1:04 PM EDT EXAMINATION: PET CT STANDARD SKULL BASE TO MID-THIGH CLINICAL HISTORY: Hx of Dermatomyosisits . CT scan to r/o malignancy shows lesions in Liver. Further imaging to r/o Lymphoma with PET CT scan recommended TECHNIQUE: Following IV injection of 18- [id number]-[id number] (FDG) a standard uptake of approximately 60 [...] Dermatomyositis documented in this encounter Care Teams Customer Contact Sales Associate Relationship Specialty Start Date End Date Samantha Michelle MD PCP - General 09/14/11 [address] [place] [address] documented as of this encounter
--- OUTSIDE RECORDS SUMMARY | 2022-09-15 01:27 | XMS_ITS | Encounter Summary ---
:1955 Author Organization [facility] [place] [address] Care Team Providers Name Role Phone Samantha Michelle MD Primary Care Provider Reason for Visit Reason Comments Iron Deficiency Encounter Details Date Type Department Care Team Description 03/20/2013 Follow-Up Hematology Oncology at Zoraida Dalton MD Iron deficiency anemia [address] (Primary Dx) [address] [place] [id number] [phone] Social History Tobacco Use Types Packs/Day Years [...] Sign Reading Time Taken Comments Blood Pressure 125/65 03/20/2013 1:22 PM EDT Pulse 75 03/20/2013 1:22 PM EDT Temperature 36.3 ??C (97.3 ??F) 03/20/2013 1:22 PM EDT Respiratory Rate 18 03/20/2013 1:22 PM EDT Oxygen Saturation 98% 03/20/2013 1:22 PM EDT Inhaled Oxygen Concentration - - Weight 135 kg (297 lb 9.9 oz) 03/20/2013 1:22 PM EDT Height 175.3 cm (5' 9.02) 03/20/2013 1:22 PM EDT Body Mass Index 43.93 03/20/2013 1:22 PM EDT documented in this encounter Progress Notes Jaden Dalton MD - 03/20/2013 1:33 PM EDT Diagnosis: Iron deficiency anemia Subjective: Brandi comes in today for followup on her iron deficiency anemia. We infused some Venofer last month and since then she is steadily felt better. Review systems otherwise completely negative Review of Systems Constitutional: Negative for fever, chills, activity change, moderate fatigue and no unexpected weight change. HENT: Negative [...] Blood counts today show a ferritin of 78. White count is 11.2 hemoglobin is come up to 12.3 with hematocrit of 41.7 and platelets are 3 or 6000. Mean cell volume is started to come up to 74.1 Assessment/Plan: Brandi has significant iron deficiency anemia that had failed vigorous attempts at oral replacement. She was treated with Venofer and at this point she's got her hemoglobin up into the normal range and has adequate iron (ferritin) stores. I suspect however with her mean cell volume still low at 74 thatjared may still go a bit higher on her hemoglobin and that will subsequently drop her ferritin. Nonetheless she has had a hysterectomy so I don't anticipate further blood loss and I suspect she will not require any more IV iron. We'll recheck her in 6 months with lab including a ferritin and CBC. She'llcall if she gets feeling tired again or has other issues in the interim I did tell her we would cancel her hematology appointment at [facility] and simply follow her here at this point. documented in this encounter Procedure Notes Provider, Scanning - 09/12/2013 3:08 PM EDTAssociated Order(s): SCAN DOC: LAB documented in this encounter Plan of Treatment Upcoming Encounters Date Type Specialty Care Team Description 09/26/2022 Office Visit Dermatology Ambreen Burroughs MD [facility] DR SHAYY CASTILLO-DERMAT [place], [place] [address] ( naif) 10/02/2022 Office Visit Pulmonology Laney Calhoun M D [facility] Pulmonary Medicguido [place] 0[address] ( naif) 11/07/2022 Office Visit Ophthalmology Gifty Bernal MD [facility] Dr [place] 0[address] (Ashvin disla) documented as of this encounter Procedures Procedure Name Priority Date/Time Associated Diagnosis Comme nts LAB SCAN 09/12/2013 3:08 PM Results f or this EDT procedure are i n the results section . documented in this encounter Results SCAN DOC: LAB (09/12/2013 3:08 PM EDT) Narrative 09/12/2013 3:08 PM EDT Procedure Note Provider, Scanning - 09/12/2013 3:08 PM EDT Scanning Provider MEDIA MGR SCAN EXT ORDR/RSLT documented in this encounter Visit Diagnoses Diagnosis Iron deficiency anemia - Primary Iron deficiency anemia, unspecified documented in this encounter Care Teams Licensed Master Social Worker Relationship Specialty Start Date End Date Samantha Michelle MD PCP - General 09/14/11 [address] [place] [address] documented as of this encounter
--- OUTSIDE RECORDS SUMMARY | 2022-09-15 01:27 | XMS_ITS | Encounter Summary ---
:1955 Author Organization [facility] [place] [address] Care Team Providers Name Role Phone Samantha Michelle MD Primary Care Provider Encounter Details Date Type Department Care Team Description 05/23/2019 Telephone Dermatology at [facility] Fidel Alvarez MD [address] [place] [address] [facility] [phone] [place], [place] [address] (Wo rk) Social History Tobacco [...] Notes Addendum Note - Fidel Alvarez - 05/23/2019 10:10 AM EDT Addended by: FIDEL ALVAREZ on: 05/23/2019 10:10 AM Modules accepted: Orders Telephone Encounter - Fidel Alvarez - 05/23/2019 9:04 AM EDT DERMATOLOGY TELEPHONE NOTE Brandi Ruiz 05/23/2019 [id number] Caller: Brandi Ruiz Reason for call: f/u results of CT chest/abdomen/Pelvis History: 63 y.o. 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 ??Abnormal spleen with scattered multiple hypodense indeterminate lesions; possible hemangiomatosis, however, cannot exclude malignancy, such as lymphoma. 2. ??Hepatomegaly with hepatic steatosis. A PET/CT may be helpful for further evaluation. If these exhibit increased uptake on the PET/CT, then that would be suspicious for lymphoma. 3. ??Scattered calcified RIGHT hilar lymph nodes and calcifications in the spleen, compatible with old granulomatous disease. Assessment/Plan/Instructions: 1. Dermatomyositis -Skin biopsy results consistent with interphase dermatitis such as Dermatomyositis. -Clinical presentation ??more consistent with skin findings of dermatomyositis and in combination with positive SAE1 antibody rase this consideration. Plan: -Called pt to discuss recent CT scan results and need for further evaluation. - Will obtain a PET/CT to assess liver lesions. If suspicious for lymphoma will refer to hemeocologyfor further workup Continue: -Daily photoprotection with SPF 50 -Continue Hydroxychloroquine 200mg BID -Continue Triamcinolone 0.1% ointment BID to affected areas on arms for overlying dermatitis Fidel Alvarez MD Dermatology Resident documented in this encounter Plan of Treatment Upcoming Encounters Date Type Specialty Care Team Description 09/26/2022 Office Visit Dermatology Ambreen Burroughs MD [facility] DR SHAYY CASTILLO-DERMAT [place], [place] 0[address] ([facility]) 10/02/2022 Office Visit Pulmonology Laney Calhoun M D [facility] Pulmonary Medicguido thornton [place], [place] [address] ([facility]) 11/07/2022 Office Visit Ophthalmology Gifty Bernal MD [facility] [address] [place] [address] ([facility]) documented as of this encounter Visit Diagnoses Diagnosis Dermatomyositis documented in this encounter Care Teams Steel Rigger Relationship Specialty Start Date End Date Samantha Michelle MD PCP - General 09/14/11 [address] [place] [address] documented as of this encounter
--- OUTSIDE RECORDS SUMMARY | 2022-09-15 01:27 | XMS_ITS | Encounter Summary ---
:1955 Author Organization [facility] [place] [address] Care Team Providers Name Role Phone Samantha Michelle MD Primary Care Provider Reason for Visit Reason Comments Skin Lesion Encounter Details Date Type Department Care Team Description 10/31/2016 Office Visit Dermatology at [facility], History of basal cell carcinoma; Justo FREEMAN Solar elastosis; [address] Facial telangiectasia; [place], [place]; [id number] Sebaceous hyperplasia of face; [phone] (Wo rk) Xanthelasma of right eyelid; Seborrhei c keratosis, inflamed; Lenticonus; Card angioma Social History Tobacco Use Types Packs/Day Years Used Date Former Smoker Cigarettes 0.25 7 Quit: 02/07/19 76 Smokeless Tobacco: Never Used Alcohol Use Standard Drinks/Week Comments No 0 (1 standard drink = 0.6 oz pure alcoho l) Sex Assigned at Date Recorded Female 03/23/2021 8:16 AM EDT documented as of this encounter Progress Notes [facility] MD - 10/31/2016 11:40 AM EST CHIEF COMPLAINT: Skin check. SUBJECTIVE: Pleasant 61-year-old here to check on her skin. She has had prior history of several basal cells removed. Just wanted to check on some spots. The primary lesion that she was worried about was a redness on her cheek, but in waiting for the appointment that has disappeared. Patient's past history, meds, and allergies reviewed in chart. 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 She is primarily employed, though, by [employer] [place] The patient herself of skin type 2. Born and raised in [place]. Family history negative for skin cancer, although her parents never lived to be old enough. Dad in his 50s in an accident. Mom of ALS in her 40s. OBJECTIVE: Patient declined full skin check. Thus, skin check from the waist up performed. This is a healthy-appearing, well-groomed woman. Has fairer skin with red telangiectatic patches on cheek. Also on the cheek, some brown macules; left cheek, a brown keratotic papule. On the eyelids, some tiny yellowish papules. Also on the forehead and cheek, some white papules and even yellow papules with slight umbilication. By the left side of the nose, there is a small scar. Examination of chest, back, and abdomen shows few brown macules, occasional card-red macule, little white patch on the right upper arm, a slight linear scar, left upper arm. No concerning lesion seen. ASSESSMENT: History, basal cell carcinoma treated near to the left side of the nose 12 years ago. About 10 years ago, basal cell was treated on the right upper arm. Two years ago, basal cell treated on the left upper arm. All lesions without recurrence. Truncally, she has a few lentigines on the upper extremities. Few lentigines and card angiomas truncally. Facially, there is some solar elastosis, telangiectasias, sebaceous hyperplasia, milia, seborrheic keratoses, and on the eyelids some small xanthelasma. PLAN: 1. Discussion and reassurance. 2. Encouraged simply with sun protection and sunscreen use. 3. If the xanthelasma worsens, could consider bichloracetic acid treatment for lightening. 4. Otherwise, sun protect and p.r.n. check. documented in this encounter Plan of Treatment Upcoming Encounters Date Type Specialty Care Team Description 09/26/2022 Office Visit Dermatology Ambreen Burroughs MD [facility] [address] SHAYY CASTILLO-DERMAT [place], [place] [address] (Wo rk) 10/02/2022 Office Visit Pulmonology Laney Calhoun M D [facility] Pulmonary Medici hillary [place], [place] [address] (Wo rk) 11/07/2022 Office Visit Ophthalmology Gifty Bernal MD [facility] [place], [place] [address] (Wo rk) documented as of this encounter Visit Diagnoses Diagnosis History of basal cell carcinoma Personal history of other malignant neop lasm of skin 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
--- OUTSIDE RECORDS SUMMARY | 2022-09-15 01:27 | XMS_ITS | Encounter Summary ---
:1955 Author Organization [facility] [place] [address] Care Team Providers Name Role Phone Samantha Michelle MD Primary Care Provider Reason for Visit Reason Onset Date Comments Medication Refill 02/28/2019 Encounter Details Date Type Department Care Team Description 02/28/2019 Refill [place]ology [place] [facility] [place] [address], [place] [address] Social History Tobacco Use Types Packs/Day [...] [facility] SHAYY CASTILLO[place], [place] [address] (Wo rk) 10/02/2022 Office Visit Pulmonology Laney Calhoun M D [facility] Pulmonary Mati thornton [place], [place] [address] (Wo rk) 11/07/2022 Office Visit Ophthalmology Gifty Bernal MD [facility] [address] [place], [place] [address] (Wo rk) documented as of this encounter Visit Diagnoses Not on filedocumented in this encounter Care Teams Hot Mill Supervisor Relationship Specialty Start Date End Date Samantha Michelle MD PCP - General 09/14/11 [address] [place] [address] documented as of this encounter
--- OUTSIDE RECORDS SUMMARY | 2022-09-15 01:27 | XMS_ITS | Encounter Summary ---
:1955 Author Organization [facility] [place] [address] Care Team Providers Name Role Phone Samantha Michelle MD Primary Care Provider Reason for Referral Speech Therapy (Routine) - Closed Specialty Diagnoses / Procedures Referred By Contact Refer red To Contact Speech Pathology / Diagnoses Dysphagia, unspecified type Gastroesophageal reflux disease, esophagitis presence not specified Constipation, unspecified constipation type Lisset Rogers, [facility] Field Worker R ehab Speech Therapy LAW OFFICE ASSISTANT [facility] [address] [place] GASTRO[place]OLOG[place] [address] [place] [address] Referral ID Status Reason Start Date Expiration Date Visits V isits Requested Authorized [id number] Closed Evaluate and 07/15/2019 07/14/2020 1 1 Treat Reason for Visit Consultation (Routine) - Closed Specialty Diagnoses / Procedures Referred By Contact Refer red To Contact Gastroenterology Diagnoses Rash Inflammatory arthropathy Arthralgia, unspecified joint Myalgia Positive JANETH (antinuclear antibody) Polyarthritis with positive rheumatoid factor Pain in both hands Chronic pain of both knees Pain in both feet Chronic cough Cuba Martin MD [facility] [place] [facility] 4[facility] [place] [address] [place] [address] Phone: Fax: Referral ID Status Reason Start Date Expiration Date Visits V isits Requested Authorized [id number] Closed Consult, 02/13/2019 08/12/2019 1 1 Test & Treat Encounter Details Date Type Department Care Team Description 07/15/2019 Office Visit Gastro[place]ology [place] [facility] [place] Dysphagia, unspecified type; [facility] Jame Monson APRN Gastroesophageal reflux disease, esophag itis presence not specified; [place] [address] [facility]; [phone] Center Constipation, unspecified constipation t [place] [address] Social History Tobacco Use Types Packs/Day Years [...] Sign Reading Time Taken Comments Blood Pressure 117/55 07/15/2019 1:22 PM EDT Pulse 78 07/15/2019 1:22 PM EDT Temperature - - Respiratory Rate - - Oxygen Saturation - - Inhaled Oxygen Concentration - - Weight 142.4 kg (314 lb) 07/15/2019 1:22 PM EDT Height 175.9 cm (5' 9.25) 07/15/2019 1:22 PM EDT Body Mass Index 46.04 07/15/2019 1:22 PM EDT documented in this encounter Patient Instructions Patient InstructionsSieglingLisset villanueva APRN - 07/15/2019 12:30 PM EDT 1. Upper endoscopy and colonoscopy with anesthesia 2. Combined barium swallow 3. Fibroscan 4. Continue esomeprazole 40mg once daily 30-60 minutes prior to eating first meal of the day 5. Follow up approximately 2-3 weeks after upper endoscopy and colonoscopy documented in this encounter Progress Notes Lisset Rogers APRN - 07/15/2019 12:30 PM EDT GARMENT FINISHER: Lisset Rogers APRN PCP: Samantha Michelle MD REQUESTING PROVIDER: Cuba Martin MD REASON FOR CONSULTATION This is a 64 y.o. female with a history significant for anemia, hypothyroidism, and anxiety. I am seeing her as a new patient today in consult for intermittent dysphagia. GI PROBLEM LIST 1. DYSPHAGIA 2. RADHA HPI COMMENTS Dysphagia for several years. Choking and coughing. It feels like I aspirate. Otherwise denies foodimpactions or becoming lodged. Has not had a barium swallow done for this issue. Last EGD 2011. Thiswas normal. Has been taking nexium for at least 13 years for reflux. Denies reflux symptoms when sheremembers to take reflux. Just had her knee replacement. Had been taking NSAIDs regularly recently. Also takes NSAIDs for migraines. Good appetite. Denies unintentional weight loss. History of anemia, but this was related to menstrual issues. Nocturnal faintness, nausea, diaphoresis, and vomiting multiple times. This occurs once every few months. Typically at night time. Has been following the GERD diet and lifestyle modifications. Denies abdominal pain. History of constipation. Typically takes miralax. Denies diarrhea. Last colonoscopy 2011. This was normal. No blood or mucus in stools. Endorses internal hemorrhoids. ROS Notable for the gastrointestinal symptoms as described above. CONSTITUTIONAL: Denies anorexia, fever, or unintended weight change EYES: Denies red or painful eyes ENT: Denies oral ulcers, dysphagia, odynophagia, globus. RESPIRATORY: GINO on CPAP CV: Atrial fibrillation x 1. : Denies dysuria, urinary incontinence, or dyspareunia. MUSC/SKELETAL: Denies chronic joint pains or history of inflammatory arthritis. INTEGUMENTARY: Denies recent skin rash or lesions. NEURO: Denies neuropathy, loss of sensation, facial drooping or unilateral weakness. PSYCH: Anxiety ENDO: Denies frequent urination and excessive hunger or thirst. HEM/LYMPH: Denies easy bleeding or bruising. ALL/IMMUNO: Denies seasonal allergies, frequent colds. ALLERGIES Allergies Allergen Reactions ??? Ceclor [Cefaclor] Hives ??? Pcn [Penicillins] Anaphylaxis ??? Phenergan [Promethazine] Anaphylaxis ??? Preservative Anaphylaxis Sulfites ??? Sulfite ??? Vancomycin Hives CURRENT MEDICATIONS Medications reviewed and reconciled in e-DH Current Outpatient Medications: ??? polyethylene glycol (MIRALAX) 17 gram Powder in Packet, Take 17 g by mouth daily., Disp: , Rfl: ??? ALPRAZolam (XANAX) 0.25 mg Tablet, as needed., Disp: , Rfl: 1 ??? HYDROcodone-acetaminophen (NORCO) 5-325 mg Tablet, Take 1 tablet by mouth as needed., Disp: , Rfl: 0 ??? ondansetron (ZOFRAN) 4 mg Tablet, as needed., Disp: , Rfl: 6 ??? aspirin 81 mg Tablet, Delayed Release (E.C.), Take 81 mg by mouth 2 times daily., Disp: , Rfl: ??? hydroxychloroquine (PLAQUENIL) 200 mg Tablet, Take 1 tablet by mouth 2 times daily., Disp: 60 tablet, Rfl: 3 ??? triamcinolone (KENALOG) 0.1 % Ointment, Apply to affected areas on arms twice daily for 10-14 days. Take 5-7 days off and repeat as needed, Disp: 454 g, Rfl: 1 ??? levothyroxine (SYNTHROID) 125 mcg Tablet, daily., Disp: , Rfl: 4 ??? metoprolol succinate (TOPROL-XL) 25 mg Tablet Sustained Release 24 hr, daily., Disp: , Rfl: 0 ??? acetaminophen (TYLENOL) 500 mg Tablet, Take 2 tablets by mouth every 6 hours as needed., Disp: 60 tablet, Rfl: 3 ??? escitalopram (LEXAPRO) 20 mg tablet, Take 20 mg by mouth daily., Disp: , Rfl: ??? esomeprazole (NEXIUM) 40 mg capsule, Take 40 mg by mouth every morning (before breakfast)., Disp: , Rfl: ??? polyethylene glycol-electrolytes (PEG 3350-ELECTROLYTES) 420 gram Recon Soln, Take 4,000 mLs by mouth once for 1 dose., Disp: 4000 mL, Rfl: 0 MEDICAL HISTORY Past Medical History: Diagnosis Date ??? Allergy 1986 sulfites (preservative), pcn, ceclor, mold, dogs ??? [...] problem 1976 anxiety ??? SVT (supraventricular tachycardia) SURGICAL HISTORY 1. Ruptured atopic s/p left salpingectomy 2. Tonsillectomy 3. Cholecystectomy 4. Appendectomy Past Surgical History: Procedure Laterality Date ??? JOINT REPLACEMENT 1999 left knee arthroscopy ??? PRO COLONOSCOPY, BIOPSY 04/09/2012 COLONOSCOPY FLEXIBLE, WITH BX performed by DONALD VALIENTE at [facility] ??? PRO UPPER GI ENDOSCOPY, BIOPSY 04/09/2012 EGD WITH BIOPSY performed by DONALD VALIENTE at [facility] ??? STOMACH SURGERY 1974 ruptured ectopic, appendectomy, 1993 choleysectomy ??? 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 . 2 daughters. Vaginal deliveries. HABITS Denies tobacco use- quit 1974. Denies alcohol use. Denies using other substances. FAMILY HISTORY Maternal GF- CRC Denies family history of celiac disease, esophageal cancer, stomach cancer, colon cancer, pancreaticor liver issues, and IBD. RELEVANT TESTING 1. EGD 04/09/12 normal esophagus. Normal stomach. Normal duodenal. Bx: normal 2. Colonoscopy 04/09/12 normal. Bx: normal 3. CT chest abdomen pelvis with contrast 05/19/19 abnormal spleen with scattered multiple lesions, hepatomegaly with hepatic steatosis. TREATMENT TRIALS 1. Esomeprazole; beneficial in terms of reflux symptoms PHYSICAL EXAM: There were no vitals filed for this visit. There is no height or weight on file to calculate BMI. GENERAL: Healthy-appearing in no acute distress. Appears stated age. Appropriate weight for height. SKIN: No lesions, rashes, lumps, or angiomas on exposed skin. NECK: No adenopathy. No thyromegaly. HEENT: PERRL, EOMI, mucosa clear without ulceration or lesions, normal Dentition LUNGS: Clear to auscultation bilaterally COR: Regular, normal S1 and S2 without murmurs. ABD: Tympanic. Tenderness deep palpation epigastrium. No rebound or guarding. Normal active BS. Soft, non-distended. No bruits. No organomegaly. EXT: No cyanosis, clubbing, or edema. NEURO: Alert and oriented to person, place, time, and situation. Cranial nerves II-XII intact. PSYCH: Mood appropriate. Good eye contact. Normal interaction. Answers all questions appropriately. LABS: Lab Results Component Value Date WBC 12.3 (H) 04/16/2019 HGB 13.1 04/16/2019 HCT 43.0 04/16/2019 MCV 82.1 (L) 04/16/2019 PLATELET 278 04/16/2019 Lab Results Component Value Date NA 137 04/16/2019 K 4.4 04/16/2019 CL 102 04/16/2019 CO2 24 04/16/2019 BUN 11 04/16/2019 CREATININE 0.60 (L) 04/16/2019 GLUCOSE 94 04/16/2019 CALCIUM 10.0 04/16/2019 Lab Results Component Value Date ALT 14 04/16/2019 AST 17 04/16/2019 ALKPHOS 103 04/16/2019 BILITOT 0.3 04/16/2019 ALBUMIN 4.2 04/16/2019 PROT 7.8 04/16/2019 No results found for: LIPASE Lab Results Component Value Date BILITOT 0.3 04/16/2019 ASSESSMENT This is a very nice 64 year old female with a history significant with dematomyositis, GINO, hypothyroidism, and anxiety who comes to me today for evaluation of dysphagia. Her last EGD and colonoscopy was in 2011. She had a CT scan done this year that showed hepatic steatosis. There is an oropharyngeal component to her dysphagia. Recommend combined barium swallow. Also has been taking a PPI for approximately 13 years. There may be an acid reflux component to her symptoms. Recommend EGD. Recommend continuing PPI and GERD diet/lifestyle modifications. In terms of hepatic steatosis, recommend fibroscan. She does have dermatomyositis and is at increased risk of cancer. We are completing a thorough cancer screening. Recommend colonoscopy. Recommend metamucil or benefiber for constipation. We reviewed medication indications, administration, and side effects. She will require MAC for both EGD and colonoscopy due to GINO and body habitus. PLAN 1. Upper endoscopy and colonoscopy with anesthesia 2. Combined barium swallow 3. Fibroscan 4. Continue esomeprazole 40mg once daily 30-60 minutes prior to eating first meal of the day 5. Follow up approximately 2-3 weeks after upper endoscopy and colonoscopy I have provided her with my contact information. She has been encouraged to contact me with any questions or concerns. Signed, Lisset Rogers APRN 07/15/2019 1:24 PM Section of Gastroenterology & Hepatology [facility] documented in this encounter Plan of Treatment Upcoming Encounters Date Type Specialty Care Team Description 09/26/2022 Office Visit Dermatology Ambreen Burroughs MD [facility] DR SHAYY CASTILLO-DERMAT [place], [place] [address] (Wo rk) 10/02/2022 Office Visit Pulmonology Laney Calhoun M D [facility] Pulmonary Medicguido thornton [place], [place] 0[address] (Wo rk) 11/07/2022 Office Visit Ophthalmology Gifty Bernal MD [facility] [place], [place] [address] (Wo rk) Scheduled Referrals Name Type Priority Associated Diagnoses Order S chedule Referral to Speech Outpatient Referral Routine Dysphagia, Or dered: Therapy unspecified type 07/15/2019 Gastroesophageal reflux disease, esophagitis presence not specified Constipation, unspecified constipation type documented as of this encounter Results (ABNORMAL) XR Fluoro Combined [...] please contact e number below. ? Narrative 09/22/2019 10:13 AM EDT EXAMINATION: XR [...] evaluation. A modified study was performed with [facility] pathology. There was mild premature spillage with soft solids and with regul ar solids. Swallows were otherwise within normal limits. No evidence of Freeman ker's diverticulum was seen. Resulting Agency Comment Unexpected Finding Lisset Ermias Rogers APRN [facility] FLUORO ORDERABLES [id number] (08/04/2019 3:30 PM EDT) Narrative Jonathan Wong PA - 08/04/2019 3:30 PM EDT Jonathan Wong PA ? 08/04/2019 ??4:07 PM [facility] Liver Fibrosis Asses sment Report Indication: ?? Hepatic steatosis and hep atomegaly on recent CT scan Performed by: ??LINH Odonnell Procedure: Vibration Controlled Transien t Elastography (VCTE) or Fibroscan [place] Protocol: Patient's identity, procedure and site were [...] greater than 66% of hepatocytes. Lisset Rogers APRN PROCEDURE/MINOR SURGICAL ORD ERABLES TSH (07/15/2019 2:11 PM EDT) P athologist Signature TSH 3.12 0.27 - 4.20 [facility] mcIU/mL [facility] Specimen Anatomical Collection Method Collection Time Receive d Time (Source) Location / / Volume Laterality Blood specimen 07/15/2019 2:11 PM 019 2:17 (specimen) EDT PM EDT Resulting Agency Comment Spec In Lab Lisset Rogres APRN CHEMISTRY ORDERABLES Performing Organization Address City/State/[place] [address] documented in this encounter Visit Diagnoses Diagnosis Dysphagia, unspecified type Gastroesophageal reflux disease, esophag itis presence not specified Dermatomyositis Constipation, unspecified constipation t ype Dysphagia, unspecified type Gastroesophageal reflux disease, esophag itis presence not specified Dermatomyositis Constipation, unspecified constipation t ype Dysphagia, unspecified type Gastroesophageal reflux disease, esophag itis presence not specified Dermatomyositis Constipation, unspecified constipation t ype documented in this encounter Care Teams Systems Designer Relationship Specialty Start Date End Date Samantha Michelle MD PCP - General 09/14/11 [address] [place] [address] documented as of this encounter
--- OUTSIDE RECORDS SUMMARY | 2022-09-15 01:27 | XMS_ITS | Encounter Summary ---
:1955 Author Organization [facility] [place] [address] Care Team Providers Name Role Phone Samantha Michelle MD Primary Care Provider Reason for Referral Consultation (Routine) - Duplicate Referral Specialty Diagnoses / Procedures Referred By Contact Refer red To Contact Gastroenterology Diagnoses Inflammatory arthropathy Arthralgia, unspecified joint Pain in both hands Motiltiy - GI intermittent difficulty with swallowing Cuba Martin MD [facility] Gastro 4l [facility] [place] [address] [place] [address] Phone: Fax: Referral ID Status Reason Start Expiration Visits Visits Date Date Requested Authorized [id number] Duplicate Consult, 04/16/2019 04/15/2020 1 1 Referral Test & Treat Encounter Details Date Type Department Care Team Description 04/16/2019 [place] [facility] Martin, Inflammatory arthropathy; [facility] Arthralgia, unspecified joint; [facility] [place] [address] [phone] [place], [place] [address] Social History Tobacco Use Types [...] Sign Reading Time Taken Comments Blood Pressure 117/54 04/16/2019 1:27 PM EDT Pulse 63 04/16/2019 1:27 PM EDT Temperature 36.8 ??C (98.3 ??F) 04/16/2019 1:27 PM EDT Respiratory Rate - - Oxygen Saturation 99% 04/16/2019 1:27 PM EDT Inhaled Oxygen Concentration - - Weight 141.1 kg (311 lb) 04/16/2019 1:27 PM EDT Height 175.9 cm (5' 9.25) 04/16/2019 1:27 PM EDT Body Mass Index 45.6 04/16/2019 1:27 PM EDT documented in this encounter Progress Notes Cuba Martin MD - 04/16/2019 2:00 PM EDT Rheumatology Follow up Note RA hx Janeth 1:160, CRp 3 (WNL.o3), ESR 37 CRPrepear JANETH WNL MPO, MA-3, PE,-C ANCA double-stranded DNA CCP PEE within normal limits RF elevated to 17 CRP 29, CKs WNL Myositis antibody panel anti--SAT 1, IgG p week ositive at 32 She describes no weakness in the upper extremity and weakness due to arthritis in the right knee history of left knee joint replacement. She also describes no rash at this time but did have a photosensitive rash over the summer associated also with arthralgia fatigue malaise nausea headaches and memory difficulty. Most of her symptoms have resolved She does have some dysphasia to solids at times without difficulty initiating follow-up swallow but with some difficulty with peristalsis related to meats HPI: Brandi Ruiz is a 63 y.o. female who presents today for follow-up evaluation as noted she had ear pain, fatigue, body hurt all over rashes all over for weeks over the summer sores in the mouth chronic cough or frequent URIs a productive yellow sputum concern for pneumonia and nodules on the PIPs. For details of the hands recent history of carpal tunnel surgery, as well as migraines. She had a headache also at this time with the back of the head that. S she can only do. When lying swelling is not terribly low she admits to when she is related to what he is 30 to 30 days ll symptom improved with Exception of chronic pain in the right knee was told she needs a knee replacement and a weeks with the pain in the wrists fatigue is improved, joint pain improved,. She does still have weakness in the lower extremities difficulty getting out of the chair but she is to be more related to the right knee strength and pain her hip flexes extension seems to be within normal limits. 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 HEENT (-)head trauma, (-)vision change, (-)tinnitus, (-)epistaxis, (-)sore throat, (-)bleeding gums,_)oral ulcers, (-)dry eyes, (-)dry mouth, (-)dysphagia, (-)GERD, (-)photo sensitivity, (-)Hair loss,(-)vertigo CVS (-)chest pain, (-)palpitations, (-)pedal edema, (-)PND, (-)orthopnea. Pulm (-)shortness of breath, (-)BABIN, (-)wheezes, (-)cough, (-)pleuritic pain GI (-)N/V, (-)abdominal pain, (-)emesis, (-)hematemesis, (-)hematochezia, (- )change in appetite (-)hematuria, (-)dysuria, (-)frequency, (-)nocturia, (-)genital ulcers MS (-)muscle weakness, (-)paralysis Endo (-)thyroid disorders, (-)diabetes, (-)temperature intolerance. Neuro [...] WITH BX performed by DONALD VALIENTE at [facility] ??? PRO UPPER GI ENDOSCOPY, BIOPSY 04/09/2012 EGD WITH BIOPSY performed by DONALD VALIENTE at [facility] ??? STOMACH SURGERY 1974 ruptured ectopic, appendectomy, 1993 choleysectomy ??? UPPER GI ENDOSCOPY, EXAM 04/09/2012 UPPER GI ENDOSCOPY performed by DONALD VALIENTE at [facility] Family History Problem Relation Age of [...] on phone: None Gets together: None Attends mu-ism service: None Active member of club or [...] to Visit Medication Sig Dispense Refill ??? levothyroxine (SYNTHROID) [...] by mouth every morning (before breakfast). ??? [DISCONTINUED] metoprolol succinate 25 mg capsule,jason,ER 24hr Take 25 mg by mouth daily. ??? [DISCONTINUED] levothyroxine (SYNTHROID) 112 mcg tablet Take 125 mcg by mouth daily. No current facility-administered medications on file prior to visit. Allergies Allergen Reactions ??? Ceclor [Cefaclor] Hives ??? Pcn [Penicillins] Anaphylaxis ??? Phenergan [Promethazine] Anaphylaxis ??? Preservative Anaphylaxis Sulfites ??? Sulfite ??? Vancomycin Hives Physical Exam: BP 117/54 Pulse 63 Temp 36.8 ??C (98.3 ??F) Ht 175.9 cm (5' 9.25) Wt (!) 141.1 kg (311 lb) SpO2 99% BMI 45.60 kg/m?? General: AAOx3, NAD, high BMI HEENT: [...] any joint. No soft tissue nodules. Labs No results found for this or any previous visit (from the past 72 hour(s)). No results found. Assessment: Brandi Ruiz is a 63 y.o. female who presents today with polyarthralgia, myalgia, dysphagia, and photosensitive rash over the summer with right knee pain. Overall she is doing better in regards to her fatigue joint pains or arthralgia. She has no weakness on exam. She has difficulty getting up from a seated position but this appears to be due to her right knee strength is 5 out of 5 at the hip flexes There is no rashes consistent with dermatomyositis at this time. Patient is advised to call her log chain feeder to come in for re-eval if the rash occurs and let them be aware of it as well as the positive LORI IgG antibody Is related to dermatomyositis IgG LORI antibody was a week+-symptoms consistent with hematochezia episode of photosensitivity over the summer which is somewhat concerning. She also has no weakness at this time CK is within normal limits. She is advised that we update her on her cancer screenings not done so. We will repeat inflammatory markers today CKs as well I will see her in the next 8 weeks to keep close eye on the progression of any potential autoimmune disease Plan or Recommendation : Consider CT of the Chest High Resolution if not yet done No orders of the defined types were placed in this encounter. Knees and wrsits documented in this encounter Plan of Treatment Upcoming Encounters Date Type Specialty Care Team Description 09/26/2022 Office Visit Dermatology Ambreen Burroughs MD [facility] DR [facility]AYY [place], [place] [address] (Wo naif) 10/02/2022 Office Visit Pulmonology Laney Calhoun M [facility] Pulmonary [place], [place] [address] (Wo naif) 11/07/2022 Office Visit Ophthalmology Gifty Bernal MD [facility] [address] [place], [place] [address] (Wo rk) Scheduled Referrals Name Type Priority Associated Order Schedule Diagnoses Referral to Outpatient Routine Inflammatory Ordered: Gastroenterology Referral arthropathy 04/16/2019 Arthralgia, unspecified join t Pain in both hands documented as of this encounter Procedures Procedure Name Priority Date/Time Associated Diagnosis Comme nts CRP, ACUTE Routine 04/16/2019 2:41 Inflammatory Results for this INFLAMMATION PM EDT arthropathy procedure are in Arthralgia, the results unspecified join t section. Pain in both hands HEMOGRAM Routine 04/16/2019 2:41 Inflammatory Results for this PM EDT arthropathy procedure are in Arthralgia, the results unspecified join t section. Pain in both hands DIFFERENTIAL, Routine 04/16/2019 2:41 Inflammatory Results for this AUTOMATED PM EDT arthropathy procedure are in Arthralgia, the results unspecified join t section. Pain in both hands ALDOLASE Routine 04/16/2019 2:41 Inflammatory Results for this PM EDT arthropathy procedure are in Arthralgia, the results unspecified join t section. Pain in both hands SEDIMENTATION RATE Routine 04/16/2019 2:41 Inflammatory Result s for this PM EDT arthropathy procedure are in Arthralgia, the results unspecified join t section. Pain in both hands CBC (WITH DIFF) Routine 04/16/2019 2:41 Inflammatory PM EDT arthropathy Arthralgia, unspecified join t Pain in both hands CK Routine 04/16/2019 2:41 Inflammatory Results for this PM EDT arthropathy procedure are in Arthralgia, the results unspecified join t section. Pain in both hands COMPREHENSIVE Routine 04/16/2019 2:41 Inflammatory Results for this METABOLIC PANEL PM EDT arthropathy procedure are in (NON-FASTING) Arthralgia, the results unspecified join t section. Pain in both hands documented in this encounter Results (ABNORMAL) Differential, Automated (04/16/2019 2:41 PM EDT) [facility] Method Time Signature Neutrophils % 67.8 % [facility] Neutr Abs (ANC) 8.35 (H) 1.70 - [facility] 6.10 [facility] x10(3)/[facility] LABORATORY Lymphocytes % 22.8 % [facility] Lymphocytes Abs 2.8 0.9 - 3.2 [facility] x10(3)/[facility] LABORATORY Monocytes % 5.7 % [facility] Monocyte Abs 0.7 0.3 - 0.9 [facility] x10(3)/[facility] LABORATORY Eosinophils % 2.4 % [facility] Eosinophils Abs 0.3 0.0 - 0.4 [facility] x10(3)/[facility] LABORATORY Basophils % 0.6 % [facility] Basophils Abs 0.1 0.0 - 0.1 [facility] x10(3)/[facility] LABORATORY Immature Gran % 0.70 % [facility] Comment: Immature granulocytes(IG's)percentage an d absolute count will include metamyelocytes, myelocytes, and promyelo cytes. Blood smears from CBCs yielding IG's will be scanned manually for concor dance. If this scan disagrees with the automated IG or if promyelocytes are not ed, a manual differential will be performed. Kavitha Gran Abs 0.08 (H) 0.00 - 0.04 x10(3)/[facility] LABORATORY Specimen Anatomical Collection Method Collection Time Receive d Time (Source) Location / / Volume Laterality Blood specimen 04/16/2019 2:41 PM 019 2:54 (specimen) EDT PM EDT Resulting Agency Comment Spec In Lab Cuba Martin MD HEMATOLOGY ORDERABLES Performing Organization Address City/State/Z[place] [address] (ABNORMAL) Hemogram (04/16/2019 2:41 PM EDT) Analysis Performed At Patho logist Time Signature WBC 12.3 (H) 4.0 - 9.5 [facility] x10(3)/[facility] LABORATORY RBC 5.24 (H) 4.00 - [facility] 5.21 [facility] x10(6)/[facility] LABORATORY Hemoglobin 13.1 11.7 - [facility] 15.5 gm/dL [facility]OR[facility]ORY Hematocrit 43.0 35.7 - [facility] 45.8 % [facility]ORATORY MCV 82.1 (L) 82.6 [facility]4 [facility] LABORATORY MCH 25.0 (L) 27.1 - [place] [place] 32.0 pg [facility]ORATORY MCHC 30.5 (L) 31.7 - [place] 35.0 gm/dL [facility]ORY Platelets 278 145 - 357 [facility] x10(3)/[facility] LABORATORY RDWSD 50.4 (H) 37.0 - [place] 46.0 [facility] LABORATORY RDWCV 16.8 (H) 11.5 [facility] 14.1 % [facility] LABORATORY MPV 9.9 7.6 - 12.9 [facility] LABORATORY nRBC % Auto 0.0 % [facility] nRBC Abs Auto 0.000 0.000 - [facility] [facility] 0.000 [facility] x10(3)/[facility] LABORATORY Specimen Anatomical Collection Method Collection Time Receive d Time (Source) Location / / Volume Laterality Blood specimen 04/16/2019 2:41 PM 019 2:54 (specimen) EDT PM EDT Resulting Agency Comment Spec In Lab Cuba Martin MD HEMATOLOGY ORDERABLES Performing Organization Address City/[facility]/[place] [address] Aldolase (04/16/2019 2:41 PM EDT) athologist Signature Aldolase 5.6 <7.7 unit/L [facility] Comment: Test Performed by: [facility] - [address] [address] Specimen Anatomical Collection Method Collection Time Receive d Time (Source) Location / / Volume Laterality Blood specimen 04/16/2019 2:41 PM 019 8:50 (specimen) EDT AM EDT Resulting Agency Comment Spec In Lab Cuba Martin MD CHEMISTRY ORDERABLES Performing Organization Address City/[facility]/[place] [address] CK (04/16/2019 2:41 PM EDT) athologist Signature CK, Total 59 0 - 160 [facility] unit/L [facility]OR[facility]ORY Specimen Anatomical Collection Method Collection Time Receive d Time (Source) Location / / Volume Laterality Blood specimen 04/16/2019 2:41 PM 019 2:54 (specimen) EDT PM EDT Resulting Agency Comment Spec In Lab Cuba Martin MD CHEMISTRY ORDERABLES Performing Organization Address City/[facility]/[place] [address] (ABNORMAL) Sedimentation rate (04/16/2019 2:41 PM EDT) athologist [facility] Sed Rate 21 (H) 0 - 20 [facility] mm/hr [facility]OR[facility]ORY Specimen Anatomical Collection Method Collection Time Receive d Time (Source) Location / / Volume Laterality Blood specimen 04/16/2019 2:41 PM 019 2:54 (specimen) EDT PM EDT Resulting Agency Comment Spec In Lab Cuba Martin MD HEMATOLOGY ORDERABLES Performing Organization Address City/State/[place] [address] (ABNORMAL) Comprehensive metabolic panel (non-fasting) (04/16/2019 2:41 PM EDT) athologist [facility] Glucose Lvl 94 65 - 199 [facility] mg/dL [facility] Comment: Diabetes: >=200 mg/dL plus symp toms BUN 11 8 - 18 mg/dL [facility] Creatinine 0.60 (L) 0.70 - 1.20 mg/dL [facility] Sodium 137 135 - 145 mmol/L [facility] Potassium 4.4 3.5 - 5.0 mmol/L [facility] Comment: Please note: ??Patients with WBC >100,00 0 may have falsely elevated Potassium levels. ??For accurate Potassium quantif ication in these patients send serum separator tube (gold top) for subsequent determinations. ??Contact the Clinical Chemistry Laboratory if there are any qu estions. Chloride 102 98 - 107 mmol/L [facility] CO2 24 22 - 31 mmol/L [facility] Anion Gap 11 5 - 15 mmol/L [facility] Calcium 10.0 8.5 - 10.5 mg/dL [facility] Total Protein 7.8 6.1 - 8.0 gm/dL [facility] Albumin 4.2 3.2 - 5.2 gm/dL [facility] AST 17 0 - 30 unit/L [facility] ALT 14 0 - 30 unit/L [facility] Alk Phos 103 40 - 104 unit/L [facility] Total Bilirubin 0.3 0.2 - 1.3 mg/dL [facility] Estimated GFR 98 >=60 mL/min/1.73 m?? [facility] Comment: The eGFR was calculated using the CKD-EP I equation. As with all creatinine based estimates of kidney function, eGFR values calculated with the CKD-EPI equation are not accurate in patients wi th acute kidney failure, extremes of body mass or the acutely ill. [email or web address] eGFR 113 >=60 mL/min/1.73 m?? [facility] Comment: The eGFR was calculated using the CKD-EP I equation. As with all creatinine based estimates of kidney function, eGFR values calculated with the CKD-EPI equation are not accurate in patients wi th acute kidney failure, extremes of body mass or the acutely ill. [email or web address] Specimen Anatomical Collection Method Collection Time Receive d Time (Source) Location / / Volume Laterality Blood specimen 04/16/2019 2:41 PM 019 2:54 (specimen) EDT PM EDT Resulting Agency Comment Spec In Lab Cuba Martin MD CHEMISTRY ORDERABLES Performing Organization Address City/State/Z[place] [address] (ABNORMAL) CRP, acute inflammation (04/16/2019 2:41 PM EDT) athologist Signature CRP 16.6 (H) <=4.9 mg/L [facility] Specimen Anatomical Collection Method Collection Time Receive d Time (Source) Location / / Volume Laterality Blood specimen 04/16/2019 2:41 PM 019 2:54 (specimen) EDT PM EDT Resulting Agency Comment Spec In Lab Cuba Martin MD CHEMISTRY ORDERABLES Performing Organization Address City/State/Z[place] [address] documented in this encounter Visit Diagnoses Diagnosis Inflammatory arthropathy Arthropathy, unspecified, site unspecifi ed Arthralgia, unspecified joint Pain in both hands documented in this encounter Care Teams Trimming Machine Operator Relationship Specialty Start Date End Date Samantha Michelle MD PCP - General 09/14/11 [address] [place] [address] documented as of this encounter
--- OUTSIDE RECORDS SUMMARY | 2022-09-15 01:27 | XMS_ITS | Encounter Summary ---
:1955 Author Organization [facility] [place] [address] Care Team Providers Name Role Phone Samantha Michelle MD Primary Care Provider Reason for Referral Consultation (Routine) - Closed Specialty Diagnoses / Procedures Referred By Contact Refer red To Contact Pulmonology Diagnoses Inflammatory arthropathy Positive JANETH (antinuclear antibody) SOB (shortness of breath) Cuba Martin MD [facility] Pulmonology [address] [facility] [place] [address] [place] [address] Fax: Referral ID Status Reason Start Date Expiration Date Visits V isits Requested Authorized [id number] Closed Consult, 06/23/2019 06/22/2020 1 1 Test & Treat Encounter Details Date Type Department Care Team Description 06/23/2019 Office Visit Rheumatology at [facility] Cuba Martin, Inflammatory arthropathy; [facility] Positive JANETH (antinuclear antibody); [facility] SOB (shortness of breath) [place] [address] [phone] [place], [place] [address] Social History Tobacco Use Types [...] Sign Reading Time Taken Comments Blood Pressure 134/54 06/23/2019 10:39 AM EDT Pulse 73 06/23/2019 10:39 AM EDT Temperature 36.7 ??C (98.1 ??F) 06/23/2019 10:39 AM EDT Respiratory Rate - - Oxygen Saturation 98% 06/23/2019 10:39 AM EDT Inhaled Oxygen Concentration - - Weight 142 kg (313 lb) 06/23/2019 10:39 AM EDT Height 175.9 cm (5' 9.25) 06/23/2019 10:39 AM EDT Body Mass Index 45.89 06/23/2019 10:39 AM EDT documented in this encounter Progress Notes Cuba Martin MD - 06/23/2019 11:00 AM EDT Rheumatology Follow up Note RHeum HX Janeth 1:160, CRp 3 (WNL.o3), ESR 37 CRPrepear JANETH WNL MPO, DE-3, PE,-C ANCA double-stranded DNA CCP PEE within normal limits RF elevated to 17 CRP 29, CKs WNL Myositis antibody panel anti--LORI 1, IgG p week positive at 32\ Interval Hx Brandi Ruiz is a 64 y.o. female who presents today for follow-up She describes no weakness in theupper extremity her lower extr weakness ahs improved since the knee replacement. We spoke about abnl seen on MRI enhanve ment of the thigh and abnl gynecological finding Patient is aware of the need for further evaluation. But she is in a lot od pain post surgery so we will give some time for her symptoms to improve. Overall she si doing better since the surgery and starting the HCQ No weakness or rash. Still some fatigue. Overall she is doing better Chronic hx of dysphagia of solids to see gi No red, warm, or swollen joints No morning stiffness She uses naproxen daily which seems to be helping Followed by dermatology ROS: General (-)fevers, (-)chills, (-)night sweats, (-)wt [...] History: Procedure Laterality Date ??? JOINT REPLACEMENT 2000 left knee arthroscopy ??? PRO COLONOSCOPY, BIOPSY 04/09/2012 COLONOSCOPY FLEXIBLE, WITH BX performed by DONALD VALIENTE at [facility] ENDOSCOPY ??? PRO UPPER GI ENDOSCOPY, BIOPSY 04/09/2012 EGD WITH BIOPSY performed by DONALD VALIENTE at [facility] ENDOSCOPY ??? STOMACH SURGERY 1974 ruptured ectopic, appendectomy, 1993 choleysectomy ??? UPPER GI ENDOSCOPY, EXAM 04/09/2012 UPPER GI ENDOSCOPY performed by DONALD VALIENTE at [facility] ENDOSCOPY Family History Problem Relation [...] Last attempt to quit: 02/07/1975 Years since quittin.4 ??? Smokeless tobacco: Never Used Substance and Sexual Activity ??? Alcohol use: No ??? Drug use: No ??? Sexual activity: None Lifestyle ??? Physical activity: Days per week: None Minutes per session: None ??? Stress: None Relationships ??? Social connections: Talks on phone: None Gets together: None Attends voodoo service: None Active member of club or [...] Outpatient Medications Medication Sig Dispense Refill ??? ALPRAZolam (XANAX) 0.25 mg Tablet as needed. 1 ??? HYDROcodone-acetaminophen (NORCO) 5-325 mg Tablet Take 1 tablet by mouth as needed. 0 ??? ondansetron (ZOFRAN) 4 mg Tablet as needed. 6 ??? aspirin 81 mg Tablet, Delayed Release (E.C.) Take 81 mg by mouth 2 times daily. ??? hydroxychloroquine (PLAQUENIL) 200 mg Tablet [...] to Visit Medication Sig Dispense Refill ??? ALPRAZolam (XANAX) 0.25 mg Tablet as needed. 1 ??? HYDROcodone-acetaminophen (NORCO) 5-325 mg Tablet Take 1 tablet by mouth as needed. 0 ??? ondansetron (ZOFRAN) 4 mg Tablet as needed. 6 ??? aspirin 81 mg Tablet, Delayed Release (E.C.) Take 81 mg by mouth 2 times daily. ??? hydroxychloroquine (PLAQUENIL) 200 mg Tablet [...] Sulfite ??? Vancomycin Hives Physical Exam: BP 134/54 Pulse 73 Temp 36.7 ??C (98.1 ??F) Ht 175.9 cm (5' 9.25) Wt (!) 142 kg (313 lb) SpO2 98% BMI 45.89 kg/m?? General: AAOx3, NAD, high BMI HEENT: [...] throughout. Toes down going bilaterally. Skin: (-)ulcers, patches of erythem rash has [...] MCPs Hips: FROM, (-) fader (-nubia) Knees: Rt knee swollen, scar, not in brace Ankles: FROM, non-tender, no swelling Feet: no [...] no weakness on exam. 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 CRP, acute inflammation ??? Creatinine ??? Hepatic Function Panel ??? CBC (with Diff) ??? Sedimentation rate ??? CK ??? Aldolase ??? Referral to Pulmonology ??? Pulmonary Function Testing Knees and wrsits documented in this encounter Plan of Treatment Upcoming Encounters Date Type Specialty Care Team Description 09/26/2022 Office Visit Dermatology Ambreen Burroughs MD [facility] DR SHAYY CASTILLO-DERMAT [place], [place] [address] (Wo naif) 10/02/2022 Office Visit Pulmonology Laney Calhoun [facility] Pulmonary Medicguido thornton [place], [place] [address] (Wo naif) 11/07/2022 Office Visit Ophthalmology Gifty Bernal MD [facility] [place] [address] (Wo rk) Scheduled Orders Name Type Priority Associated Diagnoses Order S chedule CBC (with Diff) Lab Routine Inflammatory art hropathy Expected: 06/23/2019 Positive JANETH (antinuclear (A pproximate), Expires: antibody) 07/23/2019 SOB (shortness of breath) Scheduled Referrals Name Type Priority Associated Diagnoses Order S chedule Referral to Outpatient Referral Routine Inflammatory Ordered: Pulmonology arthropathy 06/23/2019 Positive JANETH (antinuclear antibody) SOB (shortness of breath) documented as of this encounter Results Aldolase (07/15/2019 2:11 PM EDT) athologist Signature Aldolase 4.4 <7.7 unit/L [facility] Comment: Test Performed by: [place] [address] Specimen Anatomical Collection Method Collection Time Receive d Time (Source) Location / / Volume Laterality Blood specimen 07/15/2019 2:11 PM 019 8:11 (specimen) EDT AM EDT Resulting Agency Comment Spec In Lab Cuba Martin MD CHEMISTRY ORDERABLES Performing Organization Address City/[facility]/[place] [address] CK (07/15/2019 2:11 PM EDT) athologist Signature CK, Total 42 0 - 160 [facility] unit/L [facility] Specimen Anatomical Collection Method Collection Time Receive d Time (Source) Location / / Volume Laterality Blood specimen 07/15/2019 2:11 PM 019 2:17 (specimen) EDT PM EDT Resulting Agency Comment Spec In Lab Cuba Martin MD CHEMISTRY ORDERABLES Performing Organization Address City/[facility]/[place] [address] (ABNORMAL) Sedimentation rate (07/15/2019 2:11 PM EDT) athologist Signature Sed Rate 43 (H) 0 - 20 [facility] J[facility] mm/hr [facility] Specimen Anatomical Collection Method Collection Time Receive d Time (Source) Location / / Volume Laterality Blood specimen 07/15/2019 2:11 PM 019 2:17 (specimen) EDT PM EDT Resulting Agency Comment Spec In Lab Cuba Martin MD HEMATOLOGY ORDERABLES Performing Organization Address City/[facility]/ZIP Code Phon e Number [address] Hepatic Function Panel (07/15/2019 2:11 PM EDT) athologist Signature Total Protein 7.9 6.1 - 8.0 [facility] JERRY gm/dL [facility] Albumin 4.1 3.2 - 5.2 [facility] JERRY gm/dL [facility] AST 14 0 - 30 [facility] unit/L [facility] ALT 10 0 - 30 [place] unit/L [facility] Alk Phos 101 35 - 105 [facility] JERRY unit/L [facility] Total 0.3 0.2 - 1.3 [facility] Bilirubin mg/dL [facility] Bili, Direct 0.1 0.0 - 0.3 [facility] JERRY mg/dL [facility] Specimen Anatomical Collection Method Collection Time Receive d Time (Source) Location / / Volume Laterality Blood specimen 07/15/2019 2:11 PM 019 2:17 (specimen) EDT PM EDT Resulting Agency Comment Spec In Lab Cuba Martin MD CHEMISTRY ORDERABLES Performing Organization Address City/State/[place] [address] Creatinine (07/15/2019 2:11 PM EDT) athologist Signature Creatinine 0.73 0.70 - [place] [facility] 1.20 mg/dL [facility] Estimated GFR 88 >=60 [place] [facility] mL/min/1.7 [facility] 3 ?? [facility] Comment: The eGFR was calculated using the CKD-EP I equation. As with all creatinine based estimates of kidney function, eGFR values calculated with the CKD-EPI equation are not accurate in patients wi th acute kidney failure, extremes of body mass or the acutely ill. [email or web address]/[facility] eGFR 102 >=60 mL/min/1.73 m?? [facility] Comment: The eGFR was calculated using the CKD-EP I equation. As with all creatinine based estimates of kidney function, eGFR values calculated with the CKD-EPI equation are not accurate in patients wi th acute kidney failure, extremes of body mass or the acutely ill. http://[employer]/[facility] Specimen Anatomical Collection Method Collection Time Receive d Time (Source) Location / / Volume Laterality Blood specimen 07/15/2019 2:11 PM 019 2:17 (specimen) EDT PM EDT Resulting Agency Comment Spec In Lab Cuba Martin MD CHEMISTRY ORDERABLES Performing Organization Address City/[facility]/[place] [address] (ABNORMAL) CRP, acute inflammation (07/15/2019 2:11 PM EDT) P athologist Signature CRP 31.5 (H) <=4.9 mg/L [facility] Specimen Anatomical Collection Method Collection Time Receive d Time (Source) Location / / Volume Laterality Blood specimen 07/15/2019 2:11 PM 019 2:17 (specimen) EDT PM EDT Resulting Agency Comment Spec In Lab Cuba Martin MD CHEMISTRY ORDERABLES Performing Organization Address City/[facility] [place] [address] documented in this encounter Visit Diagnoses Diagnosis Inflammatory arthropathy Arthropathy, unspecified, site unspecifi ed Positive JANETH (antinuclear antibody) Other and unspecified nonspecific immuno logical findings SOB (shortness of breath) Shortness of breath documented in this encounter Care Teams Furniture And Bedding Inspector Relationship Specialty Start Date End Date Samantha Michelle MD PCP - General 09/14/11 [address] [place] [address] documented as of this encounter
--- OUTSIDE RECORDS SUMMARY | 2022-09-15 01:27 | XMS_ITS | Encounter Summary ---
:1955 Author Organization [facility] [place] [address] Care Team Providers Name Role Phone Samantha Michelle MD Primary Care Provider Reason for Visit Reason Comments IV Medication Venofer Week #2 Encounter Details Date Type Department Care Team Description 02/14/2013 Office Visit Hematology Oncology CLINIC, DR BENEDICT HEM/O [place] Iron deficiency anemia at [facility], Cecilio Disla MD [facility] [place] [address] (Primary Dx) [address] [place] [phone] Social History Tobacco Use Types Packs/Day [...] Sign Reading Time Taken Comments Blood Pressure 116/64 02/14/2013 9:15 AM EDT Pulse 81 02/14/2013 9:15 AM EDT Temperature 36.6 ??C (97.9 ??F) 02/14/2013 9:15 AM EDT Respiratory Rate 18 02/14/2013 9:15 AM EDT Oxygen Saturation 98% 02/14/2013 9:15 AM EDT Inhaled Oxygen Concentration - - Weight - - Height - - Body Mass Index - - documented in this encounter Progress Notes Linette Figueroa RN - 02/14/2013 3:28 PM EDT INFUSION THERAPY ADMINISTRATION NOTES DIAGNOSIS: Iron Deficiency REASON FOR VISIT: Venofer SUBJECTIVE Brandi offers that she has intermittent mid back discomfort. OBJECTIVE LAB DATA: WNL Pre administration: Chemotherapy orders independently verified for drug name, route, and dosage per patient's height, weight and BSA by Linette Figueroa RN and Taylor Pierson RN REACTIONS (DESCRIPTION, TIME, INTERVENTION AND EFFECTIVENESS) none ASSESSMENT Brandi was awake, alert and tolerated treatment well. PLAN Return to clinic next week for #3 documented in this encounter Plan of Treatment Upcoming Encounters Date Type Specialty Care Team Description 09/26/2022 Office Visit Dermatology Ambreen Burroughs MD [facility] DR SHAYY CASTILLO-DERMAT [place], [place] [address] (Wo rk) 10/02/2022 Office Visit Pulmonology Laney Calhoun M [facility] Pulmonary Medicguido thornton [place], [place] [address] (Wo rk) 11/07/2022 Office Visit Ophthalmology Gifty Bernal MD [facility] [place], [place] [address] (Wo rk) documented as of this encounter Visit Diagnoses Diagnosis Iron deficiency anemia - Primary Iron deficiency anemia, unspecified documented in this encounter Administered Medications Inactive Administered Medications - up to 3 most recent administrations Medication Order MAR Action Action Date Dose Rate Site iron sucrose (VENOFER) 300 Given 02/14/2013 11:17 AM EDT 300 mg 132.5 mL/hr mg in sodium chloride 0.9% 265 mL 300 mg, Intravenous, ONCE, 1 dose, On Sun02/14/13 at 1030, Administer over 120 Minutes documented in this encounter Care Teams Tube Sorter Relationship Specialty Start Date End Date Samantha Michelle MD PCP - General 09/14/11 [address] [place] [address] documented as of this encounter
--- OUTSIDE RECORDS SUMMARY | 2022-09-15 01:27 | XMS_ITS | Encounter Summary ---
:1955 Author Organization [facility] [place] [address] Care Team Providers Name Role Phone Samantha Michelle MD Primary Care Provider Reason for Visit Reason Comments Iron Deficiency iron sucrose # 3 Encounter Details Date Type Department Care Team Description 02/21/2013 Office Visit Hematology Oncology CLINIC, DR BENEDICT HEM/O [place] [facility] [place] [address] (Primary Dx) [address] [place] [phone] Social History Tobacco Use Types Packs/Day [...] Sign Reading Time Taken Comments Blood Pressure 140/68 02/21/2013 10:00 AM EDT Pulse 89 02/21/2013 10:00 AM EDT Temperature 36.6 ??C (97.9 ??F) 02/21/2013 10:00 AM EDT Respiratory Rate 18 02/21/2013 10:00 AM EDT Oxygen Saturation 96% 02/21/2013 10:00 AM EDT Inhaled Oxygen Concentration - - Weight - - Height - - Body Mass Index - - documented in this encounter Progress Notes Taylor Pierson RN - 02/21/2013 12:39 PM EDT INFUSION THERAPY ADMINISTRATION NOTES TIME TREATMENT STARTED: 1000 TIME TREATMENT ENDED: 1240 DIAGNOSIS: iron deficiency anemia PROTOCOL:na CYCLE #: weekly # 3 REASON FOR VISIT: iron sucrose SUBJECTIVE Brandi Ruiz offers no complaints. OBJECTIVE REACTIONS (DESCRIPTION, TIME, INTERVENTION AND EFFECTIVENESS) none ASSESSMENT Brandi Ruiz was awake, alert and he tolerated treatment well. PLAN Return to clinic in 1 week for final dose. documented in this encounter Plan of Treatment Upcoming Encounters Date Type Specialty Care Team Description 09/26/2022 Office Visit Dermatology Ambreen Burroughs MD [facility] DR SHAYY CASTILLO-DERMAT [place], [place] [address] (Wo rk) 10/02/2022 Office Visit Pulmonology Laney Calhoun M [facility] Pulmonary Medicguido thornton [place], [place] [address] (Wo rk) 11/07/2022 Office Visit Ophthalmology Gifty Bernal MD [facility] [place], [place] [address] (Wo rk) documented as of this encounter Visit Diagnoses Diagnosis Iron deficiency - Primary Iron deficiency anemia, unspecified documented in this encounter Administered Medications Inactive Administered Medications - up to 3 most recent administrations Medication Order MAR Action Action Date Dose Rate Site iron sucrose (VENOFER) 300 Given 02/21/2013 10:25 AM EDT 300 mg 132.5 mL/hr mg in sodium chloride 0.9% 265 mL 300 mg, Intravenous, ONCE, 1 dose, On Sun02/21/13 at 1000, Administer over 120 Minutes documented in this encounter Care Teams Flux Plant Operator Relationship Specialty Start Date End Date Samantha Michelle MD PCP - General 09/14/11 [address] [place] [address] documented as of this encounter
--- OUTSIDE RECORDS SUMMARY | 2022-09-15 01:27 | XMS_ITS | Encounter Summary ---
:1955 Author Organization [facility] [place] [address] Care Team Providers Name Role Phone Samantha Michelle MD Primary Care Provider Encounter Details Date Type Department Care Team Description 03/20/2013 Office Visit Hematology Oncology at [facility] , Jaden Lorenz MD Canceled [address] [address] [place], [place] [phone] (W ork) [phone] Social History Tobacco Use Types Packs/Day Years [...] 09/26/2022 Office Visit Dermatology Ambreen Burroughs MD [facility] ER DR SHAYY CASTILLO-DERMAT [place], [place] [address] (Wo naif) 10/02/2022 Office Visit Pulmonology Laney Calhoun M [facility] er Pulmonary Medicguido thornton [place], [place] [address] (Wo rk) 11/07/2022 Office Visit Ophthalmology Gifty Bernal MD [facility] [address] [place], [place] [address] (Wo rk) documented as of this encounter Visit Diagnoses Not on filedocumented in this encounter Care Teams Gymnasium Teacher Relationship Specialty Start Date End Date Samantha Michelle MD PCP - General 09/14/11 [address] [place] [address] documented as of this encounter
--- OUTSIDE RECORDS SUMMARY | 2022-09-15 01:27 | XMS_ITS | Encounter Summary ---
:1955 [place] [address] Care Team Providers Name Role Phone Samantha Michelle MD Primary Care Provider Encounter Details Date Type Department Care Team Description 06/04/2019 Ancillary Procedure Radiology Library at [place], [place] [facility] [place] [address] ORTHOPAEDIC SURGERY [phone] [place], [place] [address] (Wo rk) Social History Tobacco [...] MD [facility] DR SHAYY CASTILLO-DERMAT [place], [place] [address] (Wo rk) 10/02/2022 Office Visit Pulmonology Laney Calhoun M [facility] Pulmonary Medicguido thornton [place], [place] [address] (Wo rk) 11/07/2022 Office Visit Ophthalmology Gifty Bernal MD [facility] er [place] [address] (Wo rk) documented as of this encounter Procedures Procedure Name Priority Date/Time Associated Diagnosis Comme nts FILM LIBRARY Routine 06/04/2019 12:00 AM Results for this STORAGE ONLY DX EDT procedure ar e in KNEE the results section. documented in this encounter Results Film Library- Storage Only DX Knee (06/04/2019 12:00 AM EDT) Specimen (Source) Anatomical Location Collection Method / Collectio n Time Received Time / Laterality Volume Narrative JOHANA - 10/01/2019 8:07 PM EST This exam is auto-finalizing. It's purpo se is for storage only. Darnell Beasley MD IMG FILM LIBRARY ORDERABLES Performing Organization Address City/State/ZIP Code Phon e Number [facility] [place] documented in this encounter Visit Diagnoses Not on filedocumented in this encounter Care Teams Plane Tableman Relationship Specialty Start Date End Date Samantha Michelle MD PCP - General 09/14/11 [address] [place] [address] documented as of this encounter
--- OUTSIDE RECORDS SUMMARY | 2022-09-15 01:27 | XMS_ITS | Encounter Summary ---
:1955 Author Organization [facility] [place] [address] Care Team Providers Name Role Phone Samantha Michelle MD Primary Care Provider Reason for Visit Reason Onset Date Comments Triage 02/13/2019 Encounter Details Date Type Department Care Team Description 02/13/2019 Telephone Rheumatology at [facility] Kimberli Cam [facility] [place] [phone] Social History Tobacco Use Types Packs/Day Years Used Date Former Smoker Cigarettes 0.25 7 Quit: 02/07/19 76 Smokeless Tobacco: Never Used Alcohol Use Standard Drinks/Week Comments No 0 (1 standard drink = 0.6 oz pure alcoho l) Sex Assigned at Date Recorded Female 03/23/2021 8:16 AM EDT documented as of this encounter Miscellaneous Notes Telephone Encounter - Kimberli Cam RN - 02/13/2019 1:00 PM EDT [facility] pharmacy called stating they needed a VIJAYA number on to fill a script. I called them back, verified the patient's identity using 2 identifiers (name and ), and then provided the VIJAYA. I let them know to call back if they need anything else. documented in this encounter Plan of Treatment Upcoming Encounters Date Type Specialty Care Team Description 09/26/2022 Office Visit Dermatology Ambreen Burroughs MD [facility] DR [address]UC[address] RD-DERMAT [place], [place] [address] (Wo rk) 10/02/2022 Office Visit Pulmonology Laney Calhoun M [facility] Pulmonary Medicguido thornton [place], [place] [address] (Wo rk) 11/07/2022 Office Visit Ophthalmology Gifty Bernal MD [facility] [place], [place] [address] (Wo rk) documented as of this encounter Visit Diagnoses Not on filedocumented in this encounter Care Teams Video Control Operator Relationship Specialty Start Date End Date Samantha Michelle MD PCP - General 09/14/11 [address] [place] [address] documented as of this encounter
--- OUTSIDE RECORDS SUMMARY | 2022-09-15 01:28 | XMS_ITS | Encounter Summary ---
:1955 Author Organization [facility] [place] [address] Care Team Providers Name Role Phone Samantha Michelle MD Primary Care Provider Reason for Visit Reason Comments Left Knee Pain Encounter Details Date Type Department Care Team Description 10/30/2011 Office Visit Orthopaedics at [facility] Fahad Kline (degenerative [facility] MD Jerry joint disease) of [facility] (Primary Dx) [place] [address] CENTER [phone] ORTHOPAEDIC SURGERY [place], [place] [address] Social History Tobacco Use Types [...] Sign Reading Time Taken Comments Blood Pressure 141/71 10/30/2011 10:21 AM EST Pulse 61 10/30/2011 10:21 AM EST Temperature - - Respiratory Rate - - Oxygen Saturation - - Inhaled Oxygen Concentration - - Weight 140.4 kg (309 lb 8 oz) 10/30/2011 10:21 AM EST Height 175.3 cm (5' 9) 10/30/2011 10:21 AM EST Body Mass Index 45.71 10/30/2011 10:21 AM EST documented in this encounter Progress Notes Fahad Kline - 10/30/2011 11:32 AM EST REQUESTING PHYSICIAN: Eugene Schwab M.D. and Samantha Michelle M.D. 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 Schwab and Dr. Michelle with a chief complaint of left much more than right knee pain. The patient has been aware of symptoms in both her knees for probably 10 years, in fact the right may have actually bothered her a little bit more than the left, but she was involved in a horseback riding injury and had sustained an injury to the left knee, perhaps a condylar fracture. She underwent arthroscopy to deal with the trauma and at that time a fair amount of arthritis was noted, so despite these efforts made, her knee has slowly gotten to the point where it is now compromising the quality of her life on a regular basis. She did admit that she would not be here today if it was just for the right knee, but it is only the left that really is the deal breaker. Walking one block is about as much as she could ambulate. She gets night pain. Stairs and grades are particularly troublesome, down more than up, and uneven terrain is particularly challenging. The knee will swell, but she has not had the knee buckle, but she gets a locking-like sensation with painful crunching sensation, but nothing floats. She does limp, but does not use a walking stick. Getting in and out of an automobile, transition pain, shoe and sock application are all problematic. She has used antiinflammatory medication in the past and even currently just using some naproxen sodium and some Tylenol, but it is losing its efficacy. She has had two series of Synvisc injections, the first was somewhat helpful, the latter was not. The patient denies any hip problem. She does have some lateral ankle discomfort on the left without any trauma, but it is the left knee that is the biggest problem for her. No major back complaints associated with any leg pain is described. This nurse practitioner is currently weighing about 305 pounds. She weighed about 220 when all of these symptoms started, so her ability to get up and about and burn calories has been compromised. Her appetite is good. She does not smoke. Does not drink. She is status post the scope noted above. She has had a T&A and ectopic prompted an oophorectomy and salpingo-oophorectomy with an incidental appendectomy, cholecystitis generated a cholecystectomy. She has had a uterine ablation because of heavy bleeding. In fact she usually lives with hemoglobin of about 10 or 11. She has had two full-term pregnancies without problems; although, she did have bleeding after one of them. FAMILY HISTORY: The patient's mother unfortunately at 56 of amyotrophic lateral sclerosis. Father at 46 of a gunshot wound. ALLERGIES: I NEGLECT TO MENTION THAT SHE DOES HAVE INTERESTING ANAPHYLACTIC REACTIONS TO PENICILLIN, TO THE SULFIDE PRESERVATIVES IN MANY MEDICATIONS, AND ALSO CECLOR GIVES HER HIVES. SHE HAS NEVER HAD A HISTORY COMPATIBLE WITH VTE. PHYSICAL EXAMINATION: On physical examination, a pleasant cooperative woman who lives on one level in her home, in no acute distress. On physical exam, this woman can get out of the chair or the examining table without the use of her arms, but she walks quite antalgically favoring left lower extremity, and she seemingly has a valgus orientation at least suggested when she is standing. Walking on her heels and toes is possible. When examined supine, her hips and her ankles are seemingly brought through satisfactory range of motion neither pain nor apprehension. Her right knee has full extension and full flexion to calf to thigh must be about 115 or 120 degrees. Patella tracks well. There is no pain, swelling, or tenderness. There is a stable joint both coronal and sagittal planes with or without rotation. She does not have any joint line tenderness of any significance, and her distal neurovascular exam is within normal limits. On the contralateral side, however, she has about 5 to 8-degree flexion and extension contracture, flexes only to 90 to 95 degrees. The patella still tracks well. I am not impressed with significant abnormal motion in the sagittal plane; although, she does have a little bit of give with both knee varus and valgus stress and slight flexion, but it is not excessive nor is particularly uncomfortable for her, but she does have joint line tenderness, interestingly medial more than lateral. Her distal neurovascular exam is otherwise within normal limits. Some varicosities are noted, but no dystrophic changes. Her strength in hip, knee, foot, and ankle is actually within normal limits. IMAGING: Her standing alignment film showed no hip pathology, reasonably good ankle, excellent bone stock. She does have [id number] degenerative changes in her right knee, medial more than lateral compartment, but there is some osteophytes noted even at the patellofemoral joint, but her left knee has moderately severe to severe degenerative disease, more medial than lateral and more patellofemoral than lateral, but it is still tricompartmental disease with osteophyte formation. I do not see any evidence of a remote condylar fracture either femoral or tibial. ASSESSMENT AND PLAN: Signs and symptoms are compatible with moderately severe degenerative arthritis of the left knee, which is markedly compromised the patient's quality of life. We discussed the natural history, the process, and what could be done, but I think at this point in time, she has had very appropriate concerned care with hopes of decreasing discomfort with antiinflammatory medications, lubricant injections, and with an effort made arthroscopically without good and lasting relief, so I think that she is a candidate for joint replacement; although, pure electivity of the that intervention was emphasized. The goals, risks, and concerns about the surgery were carefully explained and understood, particularly as they relate to infection, blood loss, blood clots, blood clots that travel, persistent pain, need for future surgery, fracture or dislocation, nerve and vascular injury, leg length discrepancies, heterotopic bone formation, and stiffness requiring manipulation. If we were to do this woman, I would use an uncemented posterior cruciate retaining porous rotating platform. We would use a tourniquet because of her anemia anddespiteb only one knee,I would probably use ConstaVac, which I would ordinarily not use with just the unilateral knee. The patient will consider these options and will get in touch with us if we could help. CC: Samantha Michelle M.D. Family Medicine [address] [place] [address] Eugene Schwab M.D. Orthopaedic Surgery [address] [place] [id number] documented in this encounter Plan of Treatment Upcoming Encounters Date Type Specialty Care Team Description 09/26/2022 Office Visit Dermatology Ambreen Burroughs MD [facility] [address] [place], [place] [address] (Wo rk) 10/02/2022 Office Visit Pulmonology Laney Calhoun M D [facility] Pulmonary [facility] [place], [place] [address] (Wo rk) 11/07/2022 Office Visit Ophthalmology Gifty Bernal MD [facility] [place], [place] [address] (Wo rk) documented as of this encounter Visit Diagnoses Diagnosis DJD (degenerative joint disease) of knee - Primary Osteoarthrosis, unspecified whether gene ralized or localized, lower leg documented in this encounter Care Teams Time Study Analyst Relationship Specialty Start Date End Date Samantha Michelle MD PCP - General 09/14/11 [address] [place] [address] documented as of this encounter
--- OUTSIDE RECORDS SUMMARY | 2022-09-15 01:28 | XMS_ITS | Encounter Summary ---
:1955 Author Organization [facility] [place] [address] Care Team Providers Name Role Phone Samantha Michelle MD Primary Care Provider Encounter Details Date Type Department Care Team Description 10/30/2011 Hospital Encounter XRay at [facility] Knee pain [address] [place] [address] [place] [address] Social History Tobacco Use Types Packs/Day [...] Sig Dispensed Refills Start Date End Date escitalopram (LEXAPRO) 20 Take 20 mg by mouth 0 mg tablet daily. esomeprazole (NEXIUM) 40 Take 40 mg by mouth 0 mg capsule every morning (before breakfast). montelukast (SINGULAIR) 10 Take 10 mg by mouth 0 02/13/2019 mg tablet nightly. levothyroxine (SYNTHROID) Take 75 mcg by 0 09/23/2013 75 mcg tablet mouth daily. naproxen sodium (ALEVE) Take 220 mg by 0 03/20/2013 220 mg tablet mouth 2 times daily (with meals). acetaminophen (TYLENOL) Take 1,000 mg by 0 02/28/2019 500 mg tablet mouth every 6 hours as needed. documented as of this encounter Plan of Treatment Upcoming Encounters Date Type Specialty Care Team Description 09/26/2022 Office Visit Dermatology Ambreen Burroughs MD [facility] [address] [place] [address] (Wo rk) 10/02/2022 Office Visit Pulmonology Laney Calhoun M D [facility] Pulmonary [facility] [place] [address] (Wo rk) 11/07/2022 Office Visit Ophthalmology Gifty Bernal MD [facility] [place], [place] [address] (Wo rk) documented as of this encounter Procedures Procedure Name Priority Date/Time Associated Diagnosis Comme nts XR KNEE 4 OR MORE Routine 10/30/2011 9:59 AM Knee pain Resu lts for this VIEWS EST procedure are i n the results section. documented in this encounter Results XR knee 4 or more views (10/30/2011 9:59 AM EST) Anatomical Region Laterality Modality Knee Radiographic Imaging Specimen (Source) Anatomical Collection Method Collection Time Re ceived Time Location / / Volume Laterality 10/30/2011 9:59 AM EST Impressions 11/01/2011 8:52 AM EST IMPRESSION: 1. Moderate bilateral osteoarthritis in the medial compartments, more notable on the left. 2. Intraarticular body in the superior p atellar recess. Film and interpretation reviewed by the attending Narrative 11/01/2011 8:52 AM EST STANDING KNEE ALIGNMENT; AND BILATERAL K MIR, FIVE VIEWS, 10/30/11 CLINICAL INDICATION: ??Left knee pain. TECHNIQUE: Separate images of the pelvis, knees and feet were acquired in the AP projection with the patient standing. ?? In addition to routine views of the knee, these images were stitched togethe r to form a composite image of the pelvis and legs allowing for evaluation of lower extremity alignment in the weight bearing position. Mechanical [place]: ??The mechanical axis o n the right is midline. The mechanical axis on the left is near midline. The bi lateral hips appear normal. The talar domes are normal. BILATERAL KNEES: FINDINGS: ??There are bilateral moderate osteoarthritic changes in the medial compartments, more severe on the left me dial compartment with osteophyte formation and subchondral sclerosis. At the left patellofemoral compartment there is severe joint space narrowing. T here is a large rounded ossification seen in the superior patellar recess on the left likely a intraarticular body. Procedure Note Loyda Fletcher MD - 11/01/2011Formatt ing of this note might be different from the original. STANDING KNEE ALIGNMENT; AND BILATERAL K NEES, FIVE VIEWS, 10/30/11 CLINICAL INDICATION: Left knee pain. TECHNIQUE: Separate images of the pelvis, knees and feet were acquired in the AP projection with the patient standing. In addition to routine views of the knee, these images were stitched togethe r to form a composite image of the pelvis and legs allowing for evaluation of lower extremity alignment in the weight bearing position. Mechanical [place]: The mechanical axis on the right is midline. The mechanical axis on the left is near midline. The bi lateral hips appear normal. The talar domes are normal. BILATERAL KNEES: FINDINGS: There are bilateral moderate o steoarthritic changes in the medial compartments, more severe on the left me dial compartment with osteophyte formation and subchondral sclerosis. At the left patellofemoral compartment there is severe joint space narrowing. T here is a large rounded ossification seen in the superior patellar recess on the left likely a intraarticular body. IMPRESSION IMPRESSION: 1. Moderate bilateral osteoarthritis in the medial compartments, more notable on the left. 2. Intraarticular body in the superior p atellar recess. Film and interpretation reviewed by the attending Fahad Kline MD IMG DX ORDERABLES documented in this encounter Visit Diagnoses Diagnosis Knee pain Pain in joint, lower leg documented in this encounter Care Teams Glass Worker Relationship Specialty Start Date End Date Samantha Michelle MD PCP - General 09/14/11 [address] [place] [address] documented as of this encounter
--- OUTSIDE RECORDS SUMMARY | 2022-09-15 01:28 | XMS_ITS | Encounter Summary ---
:1955 Author Organization [facility] [place] [address] Care Team Providers Name Role Phone Samantha Michelle MD Primary Care Provider Encounter Details Date Type Department Care Team Description 04/09/2012 Surgery Gastroenterology at [place] Faraz Valiente, UPPER GI ENDOSCOPY [facility] [place] [address] [facility] [phone] DR GASTROENTEROLOGY [place], [place] [address] (Wo rk) Social History Tobacco [...] Sign Reading Time Taken Comments Blood Pressure 105/57 04/09/2012 1:47 PM EDT Pulse 84 04/09/2012 1:54 PM EDT Temperature - - Respiratory Rate 16 04/09/2012 1:54 PM EDT Oxygen Saturation 93% 04/09/2012 1:54 PM EDT Inhaled Oxygen Concentration - - Weight - - Height - - Body Mass Index - - documented in this encounter Discharge Instructions Patient InstructionsFaraz Valiente MD - 04/09/2012 12:22 PM EDT Please see Recommendations in the Provation procedure report which is documented in the procedural note in E-DH. AttachmentsThe following attachments cannot be sent through Care Everywhere. COLONOSCOPY: WHAT TO EXPECT AT HOME (BRAZILIAN)UPPER GI ENDOSCOPY: WHAT TO EXPECT AT HOME (BRAZILIAN)documented in this encounter Medications at Time of [...] as needed. documented as of this encounter H&P Notes Faraz Valiente MD - 04/09/2012 12:21 PM EDT Gastroenterology and Hepatology Pre-Procedure History and Physical Exam Procedure: colo/EGD Indication: fe def anemia There is no problem list on file for this patient. EXAM: HEENT: Airway examined, oropharynx clear LUNGS: Clear to auscultation HEART: Regular rate and rhythm, normal S1, S2 ABDOMEN: Normal bowel sounds, soft, non tender, non distended, A/P Proceed with colo/EGD Risks and benefits of the procedure explained to the patient. Consent signed. documented in this encounter Miscellaneous Notes Miscellaneous - Provider, Scanning - 04/11/2012 1:10 AM EDT Miscellaneous - Provider, Scanning - 04/09/2012 1:18 PM EDT documented in this encounter Plan of Treatment Upcoming Encounters Date Type Specialty Care Team Description 09/26/2022 Office Visit Dermatology Ambreen Burroughs MD [facility] ER DR SHAYY CASTILLO-DERMAT [place]ER[place] [address] (Wo rk) 10/02/2022 Office Visit Pulmonology Laney Calhoun M D [facility] Pulmonary Medicguido [place], [place] [address] (Wo rk) 11/07/2022 Office Visit Ophthalmology iGfty Bernal MD [facility] [place], [place] [address] (Wo rk) documented as of this encounter Procedures Procedure Name Priority Date/Time Associated Comments Diagnosis SURGICAL PATHOLOGY Routine 04/09/2012 3:53 PM Res ults for this REPORT EDT procedure are i n the results section. SPECIMEN TO PATHOLOGY Routine 04/09/2012 1:38 PM Results for this EDT procedure are i n the results section. SPECIMEN TO PATHOLOGY Routine 04/09/2012 1:38 PM Results for this EDT procedure are i n the results section. EGD WITH BIOPSY (WRVU 04/09/2012 12:31 anemia 2.49) PM EDT COLONOSCOPY FLEXIBLE, 04/09/2012 12:31 anemia WITH BX (VU 3.66) PM EDT UPPER GI ENDOSCOPY 04/09/2012 12:31 anemia PM EDT COLONOSCOPY Routine 04/09/2012 12:21 Results for this PM EDT procedure are i n the results section. UPPER GI ENDOSCOPY Routine 04/09/2012 12:21 Resul ts for this PM EDT procedure are i n the results section. documented in this encounter Results SURGICAL PATHOLOGY REPORT (04/09/2012 3:53 PM EDT) [facility] Method Time Signature Surgical CERNER Pathology ? [facility] Report ? Provider: ?? FARAZ VALIENTE ?Pt. Name: ?? MIRIAN Lim, MILANA Kilgore ? Acc #: ?[id number] ?Pt. MRN: ?[id number] ? Col Date: ?? 2 ? /Sex: ?1955,(56 years),Female ? Rec Date: ?? 04/09/2012 ? LOC: ?4T ? SURGICAL PATHOLOGY ? ---Pathologic Diagnosis--- ? A - Colon, random biopsies: ? Colonic mucosa, negative for diagnostic abnorma lity. ? B - Duodenum, biopsy: ? Colonic mucosa, negative for diagnostic abnorma lity. ? CR-0, CR-PX ? 04/11/12 ? VMS ? 04/11/12 Verified by: ? Madhu Shannon MD ? Pathologist ? (Electronic Si gnature) ? The attending pathologist whose signature appears o n this report has ? reviewed all diagnostic slides and has edited the rebecca ss and/or ? microscopic portion of the report in rendering the fi nal pathologic ? diagnosis. ? ---Microscopic Description--- ? Slides reviewed, microscopic description not recorded . ? ---Gross Description--- ? A - Labeled/Fixative: Random Bx of the colon, formali n. ? Qty/Size/Weight: ?Multiple, averaging 0.3 cm. ? Tissue Description: ?? Soft, monsivais tissues. ? Sections/Processing: ??(T2) ? B - Labeled/Fixative: Random Bx of the duodenum R/O s prue, ? formalin. ? Qty/Size/Weight: ?Four, averaging 0.3 cm. ? Tissue Description: ?? Soft, monsivais tissues. ? Sections/Processing: ??(T1) ??vms/SNS ? ---Clinical Information--- ? Specimen Submitted: ? A - Random bx of the colon ? B - Random bx of the duodenum r/o sprue ? Clinical History/Diagnosis: ? Patient with anemia. ??Rule out sprue, rule out microscopic inflammation Specimen (Source) Anatomical Collection Method Collection Time Re ceived Time Location / / Volume Laterality 04/09/2012 3:53 PM EDT Faraz Valiente MD PATHOLOGY/CYTOLOGY ORDERABLE S Performing Organization Address [facility] Phon e Number [address] CERNER MILLENNIUM Specimen to Pathology (surgical or derm) (04/09/2012 1:38 PM EDT) Specimen Anatomical Collection Method Collection Time Receive d Time (Source) Location / / Volume Laterality AP Specimen 04/09/2012 1:38 PM 2 1:38 EDT PM EDT Narrative [facility] - 04/09/2012 1:38 PM E DT Specimen requisition ordered. ??Separate Pathology report to follow Faraz Valiente MD PATHOLOGY/CYTOLOGY ORDERABLE S Performing Organization Address [facility] Code Phon e Number [address] CERNER MILLENNIUM Specimen to Pathology (surgical or derm) (04/09/2012 1:38 PM EDT) Specimen Anatomical Collection Method Collection Time Receive d Time (Source) Location / / Volume Laterality AP Specimen 04/09/2012 1:38 PM 2 1:38 EDT PM EDT Narrative CERNER MILLENNIUM - 04/09/2012 1:38 PM E DT Specimen requisition ordered. ??Separate Pathology report to follow Faraz Valiente MD PATHOLOGY/CYTOLOGY ORDERABLE S Performing Organization Address [facility] [place] [address] GLORIA MILLENNIUM COLONOSCOPY (04/09/2012 12:21 PM EDT) Component Value Ref Test Analysis Performed At [facility] Range Method Time Signature COLONOSCOPY [facility] PROVATION Endoscopy Patient Name: Milana Ruiz ? Procedure Date: 04/09/2012 12:21 PM ? Date of : 1955 ? Age: 56 ? Order #: [id number] ? Procedure: ? Colonoscopy Indications: ? Iron deficiency anemia, past h/o mi ld ? nonspecific colitis on coloni c bx Providers: ? Faraz Valiente MD, Monet bellamy, ? RN, Larry Alba, Registered Pharmacy Technician Referring MD: ?Samantha Michelle MD Medicines: ? Midazolam 7 mg IV, Fentanyl 350 ? micrograms IV, Diphenhydramin e 50 mg ? IV Complications: ? No immediate complications. Procedure: ? Pre-Anesthesia Assessment: ? - ASA Grade Assessment: II - A ? patient with mild systemic di sease. ? The procedure, indications, b enefits, ? [...] direct visuali zation, ? advanced to the terminal ileu m. ? Careful inspection was made a s the ? colonoscope was withdrawn. Th e ? colonoscopy was performed wit lewis ? difficulty. The patient laya ated the ? procedure well. The quality o f the ? bowel preparation was excelle nt. ? Findings: ? The colon (entire examined portion) appeared normal. ? Biopsies were taken with a cold forceps for ? histology. The terminal ileum appeared normal. ? Internal hemorrhoids were found during retroflexion ? and were medium-sized. ? Impression: ?- The entire examined colon is ? normal. This was biopsied. ? - The examined portion of the ileum ? was normal. ? - Internal hemorrhoids. Recommendation: ?- Await pathology results. ? Faraz Valiente MD 04/09/2012 1:24 PM ? Number of Addenda: 0 Note Initiated On: 04/09/2012 12:21 PM Specimen (Source) Anatomical Collection Method Collection Time Re ceived Time Location / / Volume Laterality 04/09/2012 12:21 PM EDT Samantha Michelle MD GENERAL SURGICAL ORDERABLES Performing Organization Address City/State/ZIP Code Phon e Number PROVATION UPPER GI ENDOSCOPY (04/09/2012 12:21 PM EDT) [facility] gist Method Time Signature UPPER GI [facility] PROVATION ENDOSCOPY Endoscopy Patient Name: Milana Ruiz ? Procedure Date: 04/09/2012 12:21 PM ? Date of : 1955 ? Age: 56 ? Order #: [id number] ? Procedure: ? Upper GI endoscopy Indications: ? fe def anemia Providers: ? Faraz Valiente MD, Monet bellamy, ? RN, Larry Alba, Registered Pharmacy Technician Referring : ?Samantha Michelle MD Medicines: ? Midazolam 2 mg IV, Fentanyl 50 ? micrograms IV Complications: ? No immediate complications. Procedure: ? Pre-Anesthesia Assessment: ? - ASA Grade Assessment: II - A ? patient with mild systemic di sease. ? The procedure, indications, b enefits, ? risks and alternatives were e xplained ? to the patient. Specifically ? discussed were potential ? complications including, but not ? limited to, bleeding, perfora tion, ? infection, missing a cancer, and ? adverse medication reactions. The ? Endoscope was [facility] thro [facility] the ? mouth, and advanced to the ird part ? of duodenum. The patient tole rated ? the procedure well. The upper GI ? endoscopy was accomplished wi out ? difficulty. The patient laya ated the ? procedure well. ? Findings: ? The examined esophagus was normal. The entire ? examined stomach was normal. The examined duodenum ? was normal. Biopsies were taken with a cold forceps ? for evaluation of celiac disease. ? Impression: ?- Normal esophagus. ? - Normal stomach. ? - Normal examined duodenum. B iopsy ? was performed. ? - Biopsies were taken with a cold ? forceps for evaluation of alissa iac ? disease. Faraz Valiente MD 04/09/2012 2:30 PM ? Number of Addenda: 0 Note Initiated On: 04/09/2012 12:21 PM Specimen (Source) Anatomical Collection Method Collection Time Re ceived Time Location / / Volume Laterality 04/09/2012 12:21 PM EDT Samantha Michelle MD GENERAL SURGICAL ORDERABLES Performing Organization Address City/State/ZIP Code Phon e Number PROVATION documented in this encounter Visit Diagnoses Not on filedocumented in this encounter Administered Medications Inactive Administered Medications - up to 3 most recent administrations Medication Order MAR Action Action Date Dose Rate Site diphenhydrAMINE (BENADRYL) Given 04/09/2012 1:05 PM EDT 25 mg Right Arm injection ONCE PRN, Starting on Sun04/09/12 at 1300, Until Sun04/09/12 at 1719, Itching, Intra-Operative (Intra-Procedure), Routine Given 04/09/2012 1:00 PM EDT 25 mg Right Arm fentaNYL 50mcg/mL injection Given 04/09/2012 1:30 PM EDT 50 mcg ONCE PRN, Starting on Sun04/09/12 at 1239, Until Sun04/09/12 at 1719, Pain, Intra-Operative (Intra-Procedure), Routine Given 04/09/2012 1:12 PM EDT 50 mcg Given 04/09/2012 1:00 PM EDT 50 mcg midazolam (VERSED) injection Given 04/09/2012 1:33 PM EDT 1 mg Right Arm ONCE PRN, Starting on Sun04/09/12 at 1239, Until Sun04/09/12 at 1719, Sleep, Intra-Operative (Intra-Procedure), Routine Given 04/09/2012 1:30 PM EDT 1 mg Right Arm Given 04/09/2012 1:12 PM EDT 1 mg Right Arm ondansetron (ZOFRAN) tablet 4 mg Given 04/09/2012 12:42 PM EDT 4 mg 4 mg, Oral, ONCE, 1 dose, On Sun04/09/12 at 1300, Endoscopy (Recovery-Hospital Unit), Routine sodium chloride 0.9% infusion New Bag 04/09/2012 11:37 AM EDT 30 mL/hr 30 mL/hr 30 mL/hr, Intravenous, CONTINUOUS, Starting on Sun04/09/12 at 1145, Until Sun04/09/12 at 1719, Endoscopy (Day of Procedure) documented in this encounter Active and Recently Administered Medications Times are shown in EDT. Scheduled Medication Order 04/07/2012 04/08/2012 04/09/2012 ondansetron (ZOFRAN) tablet 4 mg (COMPLETED) 1242 (Given - Provider: Monet Salazar RN) 4 mg, Oral, ONCE, 1 dose, Sun04/09/12 at 1300, Endo (Recovery-Hospital Unit), Routine Continuous Medication Order 04/07/2012 04/08/2012 04/09/2012 sodium chloride 0.9% infusion (CANCELED) 1137 (New Bag - Provider: Briseida Garcia RN) 30 mL/hr, at 30 mL/hr, Intravenous, CONT INUOUS, Starting 04/09/12 at 1145, Until 04/09/12 at 1719, Endo (Day of Procedure) PRN Medication Order 04/07/2012 04/08/2012 04/09/2012 diphenhydrAMINE (BENADRYL) injection (CANCELED) 1300 (Given - Provider: Elena Tapia RN - Comment: pt still awake)1305 (Given - Provider: Elena Tapia RN - Comment: pt uncomfortable) ONCE PRN, Starting 04/09/12 at 1300, Until 04/09/12 at 1719, Itching, Intra-Operative (Intra-Procedure), Routine fentaNYL 50mcg/mL injection (CANCELED) 1239 (Given - Provider: Monet Salazar RN)1245 (Given - Provider: Elena Tapia RN - Comment: pt still awake)1248 (Given - Provider: Elena Tapia RN - Comment: pt still awake)1254 (Given - Provider: Elena Tapia RN - Comment: pt still awake) ONCE PRN, Starting 04/09/12 at 1239, Until 04/09/12 at 1719, Pain, Intra- Operative (Intra-Procedure), Routine 130 0 (Given - Provider: Elena Tapia RN - Comment: pt still awake)1312 (Given - Provider: Elena Tapia RN - Comment: pt uncomfortable)1330 (Given - Provider: Monet Salazar RN) midazolam (VERSED) injection (CANCELED) 1239 (Given - Provider: Monet Salazar RN)1245 (Given - Provider: Elena Tapia RN - Comment: pt still awake)1248 (Given - Provider: Elena Tapia RN - Comment: pt still awake)1255 (Given - Provider: Elena Tapia RN - Comment: pt still awake) ONCE PRN, Starting 04/09/12 at 1239, Until Sun04/09/12 at 1719, Sleep, Intra- Operative (Intra-Procedure), Routine 130 0 (Given - Provider: Elena Tapia RN - Comment: pt stilol awake)1312 (Given - Provider: Elena Tapia RN - Comment: pt uncomfortable)1330 (Given - Provider: Monet Salazar, NICOL)1333 (Given - Provi sybil: Monet Salazar RN) documented in this encounter Care Teams Ride Attendant Relationship Specialty Start Date End Date Samantha Michelle MD PCP - General 09/14/11 [address] [place] [address] documented as of this encounter
--- OUTSIDE RECORDS SUMMARY | 2022-09-15 01:28 | XMS_ITS | Encounter Summary ---
:1955 Author Organization [facility] [place] [address] Care Team Providers Name Role Phone Samantha Michelle MD Primary Care Provider Encounter Details Date Type Department Care Team Description 10/30/2011 Hospital Encounter XRay at [facility] Knee pain [address] [place] [address] [place] [phone] Social History Tobacco Use Types Packs/Day [...] 09/26/2022 Office Visit Dermatology Ambreen Burroughs MD [facility] DR SHAYY CASTILLO-DERMAT [place], [place] [address] (Wo rk) 10/02/2022 Office Visit Pulmonology Laney Calhoun M D [facility] Pulmonary Mati Ritchie[place]ed[place], [place] [address] (Wo rk) 11/07/2022 Office Visit Ophthalmology Gifty Bernal MD [facility] Dr [place], [place] [address] (Wo rk) documented as of this encounter Procedures Procedure Name Priority Date/Time Associated Diagnosis Comme nts XR KNEE STANDING Routine 10/30/2011 9:59 AM Knee pain Resul ts for this ALIGNMENT EST procedure are i n the results section. documented in this encounter Results XR standing alignment (10/30/2011 9:59 AM EST) Anatomical Region Laterality Modality N/A Radiographic Imaging Specimen (Source) Anatomical Collection Method [...] EST STANDING KNEE ALIGNMENT; AND BILATERAL K JULIANNEES, FIVE VIEWS, 10/30/11 CLINICAL INDICATION: ??Left knee [...] alignment in the weight bearing position. Mechanical [place]: ??The mechanical axis o n the right [...] original. STANDING KNEE ALIGNMENT; AND BILATERAL K NEDANIEL, FIVE VIEWS, 10/30/11 CLINICAL INDICATION: Left knee [...] alignment in the weight bearing position. Mechanical [place]: The mechanical axis on the right is [...] leg documented in this encounter Care Teams Ski Lift Operator Relationship Specialty Start Date End Date Samantha Michelle MD PCP - General 09/14/11 [address] [place] [address] documented as of this encounter
--- OUTSIDE RECORDS SUMMARY | 2022-09-15 01:28 | XMS_ITS | Encounter Summary ---
:1955 Author Organization [facility] [place] [address] Care Team Providers Name Role Phone Samantha Michelle MD Primary Care Provider Reason for Visit Reason Comments Other Venofer # 1 Infusion Encounter Details Date Type Department Care Team Description 02/06/2013 Office Visit Hematology Oncology CLINIC, DR BENEDICT HEM/O [place] Iron deficiency at [facility] Jaden Dalton MD [address] [place] [phone] anemia (Primary Dx) [address] [place] [phone] Social History Tobacco Use Types Packs/Day Years Used Date Former Smoker Cigarettes 0.25 7 Quit: 02/07/19 76 Smokeless Tobacco: Never Used Alcohol Use Standard Drinks/Week Comments No 0 (1 standard drink = 0.6 oz pure alcoho l) Sex Assigned at Date Recorded Female 03/23/2021 8:16 AM EDT documented as of this encounter Progress Notes Lyla Hawkins RN - 02/06/2013 10:46 AM EDT INFUSION THERAPY ADMINISTRATION NOTES DIAGNOSIS: Iron Deficiency Anemia CYCLE #: Week 1 of 4 REASON FOR VISIT: Venofer Infusion SUBJECTIVE Ms. Brandi Ruiz is here for her first dose of Venofer. She saw Dr. Dalton prior to coming to the infusion room. She offers no complaints. OBJECTIVE IV ACCESS: PIV Right Hand BLOOD RETURN: yes, excellent ANY S/S OF INFECTION/EXTRAVASATIONS: None IV FLUSHED WITH: NS IV DISCONTINUED: yes REACTIONS (DESCRIPTION, TIME, INTERVENTION AND EFFECTIVENESS) none ASSESSMENT Ms. Ruiz was awake, alert and she tolerated treatment well. PLAN Return to clinic in one week for week # 2 of 4 Venofer. Patient was reminded to call in the interim with any questions/concerns. documented in this encounter Plan of Treatment Upcoming Encounters Date Type Specialty Care Team Description 09/26/2022 Office Visit Dermatology Ambreen Burroughs MD [facility] DR SHAYY CASTILLO-DERMAT [place], [place] [address] (Wo rk) 10/02/2022 Office Visit Pulmonology Laney Calhoun M D [facility] Pulmonary Medicguido thornton [place], [place] [address] (Wo rk) 11/07/2022 Office Visit Ophthalmology Gifty Bernal MD [facility] [place], [place] [address] (Wo rk) documented as of this encounter Visit Diagnoses Diagnosis Iron deficiency anemia - Primary Iron deficiency anemia, unspecified documented in this encounter Administered Medications Inactive Administered Medications - up to 3 most recent administrations Medication Order MAR Action Action Date Dose Rate Site iron sucrose (VENOFER) 300 Given 02/06/2013 10:28 AM EDT 300 mg 132.5 mL/hr mg in sodium chloride 0.9% 265 mL 300 mg, Intravenous, ONCE, 1 dose, On Stefanie 02/06/13 at 1000, Administer over 120 Minutes documented in this encounter Care Teams Tissue Packer Relationship Specialty Start Date End Date Samantha Michelle MD PCP - General 09/14/11 [address] [place] [address] documented as of this encounter
--- OUTSIDE RECORDS SUMMARY | 2022-09-15 01:28 | XMS_ITS | Encounter Summary ---
:1955 Author Organization [facility] [place] [address] Care Team Providers Name Role Phone Samantha Michelle MD Primary Care Provider Reason for Visit Reason Comments Anemia Encounter Details Date Type Department Care Team Description 02/06/2013 Follow-Up Hematology Oncology at Zoraida Dalton MD Iron deficiency anemia [address] (Primary Dx) [address] [place] [id number] [phone] Social History Tobacco Use Types Packs/Day Years [...] Sign Reading Time Taken Comments Blood Pressure 125/62 02/06/2013 9:30 AM EDT Pulse 69 02/06/2013 9:30 AM EDT Temperature 36.3 ??C (97.3 ??F) 02/06/2013 9:30 AM EDT Respiratory Rate 18 02/06/2013 9:30 AM EDT Oxygen Saturation 97% 02/06/2013 9:30 AM EDT Inhaled Oxygen Concentration - - Weight 135.6 kg (299 lb) 02/06/2013 9:30 AM EDT Height 175.3 cm (5' 9.02) 02/06/2013 9:30 AM EDT Body Mass Index 44.13 02/06/2013 9:30 AM EDT documented in this encounter Progress Notes Jaden Dalton MD - 02/06/2013 10:07 AM EDT Diagnosis: Iron deficiency anemia Subjective: Brandi comes in today to start better for her in the treatment of her iron deficiency anemia. She wasseen last month at [facility] in the infusion was arranged but she is a bit delayed in coming here for treatment so she is being seen again today. In talking to her she has had long-standing iron deficiency and has been unable to replete her iron despite vigorous attempts to take oral iron. She then had a hysterectomy a few years ago and her iron level has not yet come up. With knee surgery last year her hemoglobin went down to 7 postoperatively but fortunately didn't come up a little bit. Her last ferritin done in December was 12. She feels tired and is quite symptomatic overall. She's had an extensive GI workup with a upper endoscopy and colonoscopy last year which was negative. 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 Past Medical History Diagnosis Date ??? Allergy 1985 sulfites (preservative), pcn, ceclor, mold, dogs ??? Blood disease 1997 anemia due to heavy periods ??? Bone disease 1996 OA and DJD of knees ??? Cancer 1996 skin basal cell ??? Chronic pain 2009 knees ??? Circulatory disease 1989 varicose veins ??? Genital disease, female 2009 heavy menses, fibroids ??? Heart disorder 1972 svt ??? Headache 1988 migraine headaches ??? Bladder disorder 2007 stress urinary incontinence ??? Mental or behavioral problem 1977 anxiety ??? Hypothyroidism 10/28/2012 ??? SVT (supraventricular tachycardia) ??? Hypothyroid Past Surgical History Procedure Date ??? Joint replacement 1999 left knee arthroscopy ??? Stomach surgery 1975 ruptured ectopic, appendectomy, 1993 choleysectomy ??? Upper gi endoscopy, exam 04/09/2012 UPPER GI ENDOSCOPY performed by DONALD VALIENTE at [facility] ??? Colonoscopy, biopsy 04/09/2012 COLONOSCOPY FLEXIBLE, WITH BX performed by DONALD VALIENTE at [facility] ??? Upper gi endoscopy, biopsy 04/09/2012 EGD WITH BIOPSY performed by DONALD VALIENTE at [facility] Current Outpatient Prescriptions on File Prior to Visit Medication Sig Dispense Refill ??? escitalopram (LEXAPRO) 20 mg tablet Take 20 mg by mouth daily. ??? esomeprazole (NEXIUM) 40 mg capsule Take 40 mg by mouth every morning (before breakfast). ??? montelukast (SINGULAIR) 10 mg tablet Take 10 mg by mouth nightly. ??? levothyroxine (SYNTHROID) 75 mcg tablet Take 75 mcg by mouth daily. ??? naproxen sodium (ALEVE) 220 mg tablet Take 220 mg by mouth 2 times daily (with meals). ??? acetaminophen (TYLENOL) 500 mg tablet Take 1,000 mg by mouth every 6 hours as needed. Current Facility-Administered Medications on File Prior to Visit Medication Dose Route Frequency Provider Last Rate Last Dose ??? iron sucrose (VENOFER) 300 mg in sodium chloride 0.9% 265 mL 300 mg Intravenous Once Trupti Greenwood MD Allergies Allergen Reactions ??? Ceclor (Cefaclor) Hives ??? Pcn (Penicillins) Anaphylaxis ??? Phenergan (Promethazine) Anaphylaxis ??? Preservative Anaphylaxis Sulfites ??? Sulfite ??? Vancomycin Hives History Social History ??? Marital Status: Spouse Name: N/A Number of Children: N/A ??? Years of Education: N/A Occupational History ??? Not on file. Social History Main Topics ??? Smoking status: Former Smoker -- 0.2 packs/day for 7 years Types: Cigarettes Quit date: 02/07/1975 ??? Smokeless tobacco: Never Used ??? Alcohol Use: No ??? Drug Use: No ??? Sexually Active: Not on file Other Topics Concern ??? Regular Exercise Is At Least 30 Minutes Of Moderate Physical Activity 5 Days A Week. This Would Be Walking Fast, Playing Tennis, Mowing The Lawn. Regular Exercise Is Also At Least 20 Minutes Of Vigorous Physical Activity 3 Days A Week. This Would Be Jogging, Swimming, Playing Basketball. Do You Get Regular Exercise? No ??? Are You Or Have You Been Threatened Or Hurt Physically, Emotionally, Or Sexually By A Partner/Spouse/Family Member? No Social History Narrative ??? No narrative on file Review of Systems Constitutional: Negative for fever, [...] supraclavicular, and axillary nodes normal Neurologic: Normal Lab Results Component Value Date WBC 11.8* 12/02/2012 HGB 10.2* 12/02/2012 HCT 34.3 12/02/2012 MCV 70.0* 12/02/2012 PLATELET 376* 12/02/2012 Lab Results Component Value Date FERRITIN 12* 12/02/2012 Assessment/Plan: Brandi has significant iron deficiency anemia that has failed vigorous attempts at oral replacement. Certainly been a 4 would be indicated and she is arranged to have for infusions over the next month. We'll see her a week after that with a ferritin CBC and CMP to make sure things have returned to normal but I suspect she may well need 8-12 infusions. She has a good understanding of risks and side effects and I did tell her many patients do get achy for several years after treatment. That does tend to get better with each subsequent infusion. She'll cough any issues or problems develop in the interim. documented in this encounter Procedure Notes Provider, Scanning - 02/06/2013 5:13 PM EDTAssociated Order(s): SCAN DOC: CHEMOTHERAPY documented in this encounter Plan of Treatment Upcoming Encounters Date Type Specialty Care Team Description 09/26/2022 Office Visit Dermatology Ambreen Burroughs MD [facility] DR SHAYY CASTILLO-DERMAT [place], [place] [address] (Wo rk) 10/02/2022 Office Visit Pulmonology Laney Calhoun [facility] Pulmonary Medicguido thornton [place], [place] [address] (Wo rk) 11/07/2022 Office Visit Ophthalmology Gifty Bernal MD [facility] [place], [place] [address] (Wo rk) documented as of this encounter Procedures Procedure Name Priority Date/Time Associated Diagnosis Comme nts CHEMOTHERAPY SCAN 02/06/2013 5:13 PM Resu lts for this EDT procedure are i n the results section. documented in this encounter Results SCAN DOC: CHEMOTHERAPY (02/06/2013 5:13 PM EDT) Narrative 02/06/2013 5:13 PM EDT Procedure Note Provider, Scanning - 02/06/2013 5:13 PM EDT Scanning Provider MEDIA MGR SCAN EXT ORDR/RSLT documented in this encounter Visit Diagnoses Diagnosis Iron deficiency anemia - Primary Iron deficiency anemia, unspecified documented in this encounter Care Teams Credit Specialist Relationship Specialty Start Date End Date Samantha Michelle MD PCP - General 09/14/11 [address] [place] [address] documented as of this encounter
--- OUTSIDE RECORDS SUMMARY | 2022-09-15 01:28 | XMS_ITS | Encounter Summary ---
:1955 Author Organization [facility] [place] [address] Care Team Providers Name Role Phone Olaf Michelle MD Primary Care Provider Reason for Visit Reason Comments Follow-up Encounter Details Date Type Department Care Team Description 12/02/2012 Office Visit Hematology and Julio Césargan, Iron deficien cy anemia Oncology at [facility] MD Lalit (Primary Dx) [facility] [address] [place] HEMATOLOGY/ONCOLOG [address] Y DEPT. [phone] [place], [place] [address] Social History Tobacco Use Types [...] Sign Reading Time Taken Comments Blood Pressure 136/58 12/02/2012 2:31 PM EST Pulse 84 12/02/2012 2:31 PM EST Temperature 36.6 ??C (97.9 ??F) 12/02/2012 2:31 PM EST Respiratory Rate 18 12/02/2012 2:31 PM EST Oxygen Saturation 100% 12/02/2012 2:31 PM EST Inhaled Oxygen Concentration - - Weight 134.8 kg (297 lb 3.2 oz) 12/02/2012 2:31 PM EST Height 175.3 cm (5' 9.02) 12/02/2012 2:31 PM EST Body Mass Index 43.87 12/02/2012 2:31 PM EST documented in this encounter Progress Notes Lalit Apple MD - 12/02/2012 3:44 PM EST Hematology Consultation Note PCP: OLAF MICHELLE MD Referral physician: Olaf Michelle Md [address] [place] [address] History of present illness: Brandi Ruiz is seen today in our hematology clinic at request of for evaluation of iron deficiency anemia. Reports fatigue all her life. 4-5yrs of heavy menses prior to uterine ablation 2010. Left knee replacement recently, and Hb was down to 6. Has taken oral iron since then (Iferex daily) but stopped due to side effects--heartburn, consitpation. Still feels dizzy when standing. Last Hb 9.3 at PCP's office. Highest Hb in last 2-3 years has been 10.3. Had EGD/[place], which she states were unrevealing. Here to discuss diagnosis and management. Problem list: Patient Active Problem List Diagnoses Code ??? Anemia 285.9 ??? Hypothyroidism 244.9 ??? Anxiety 300.00 Medications: Outpatient Prescriptions Marked as Taking for the 12/02/12 encounter (Office Visit) with Lalit Apple MD Medication Sig Dispense Refill ??? escitalopram (LEXAPRO) [...] by mouth every 6 hours as needed. Allergy: Ceclor; Pcn; Phenergan; Preservative; and Sulfite; she reports anaphalactic type reaction to sulfites (was allergy tested). Family history: Family History Problem Relation Age of Onset ??? Alcohol Abuse Father ??? Depression Mother ??? Depression Father Sister ? Anemia Mother of ALS age 56 Father of accidental causes. Social history: reports that she quit smoking about 37 years ago. Her smoking use included Cigarettes. She has a 1.75 pack-year smoking history. She has never used smokeless tobacco. She reports that she does not drink alcohol or use illicit drugs. 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 Review of Systems Energy level: OK. Has adapted to low Hb. Pain: none Appetite: good Fevers/chills/sweats: No Bruising/bleeding/melena: No. Occ epistaxis (dry air). Recent infections: No Nausea/vomiting/diarrhea/constipation: No SOB/BABIN/chest pain: Some times Change in adenopathy or other masses: No Unexpected weight loss or gain: intentional weight loss 22lbs, but gained some back. Skin rashes or petechiae: No Other systems: No additional positive findings A 12-pt review of systems was performed and was otherwise negative except for above. Physical exam: BP 136/58 Pulse 84 Temp(Src) 36.6 ??C (97.9 ??F) (Oral) Resp 18 Ht 175.3 cm (5' 9.02) Wt 134.809 kg (297 lb 3.2 oz) BMI 43.87 kg/m2 SpO2 100% Gen: not in acute distress Neuro: awake and oriented 3x, non-focal HEENT:no oral lesions, no mucositis, no thrush . PALE CONJECTIVA. Heart:S1S2, RRR, no m/r/g Lung: clear bilaterally Abdomen: + BS, soft, NT, ND Extretimities: no edema. Slower capillary refil. Skin: no rash, bleeding, ulcer Lymph nodes: no palpable cervical, supraclavicular, axillary, inguinal lymphadenopathy Laboratory Data: No results found for this or any previous visit (from the past 72 hour(s)). Radiology: Assessment and Plan Brandi Ruiz is a 57 y.o.-female with iron deficiency anemia by history, intolerant to oral iron, without maximal correction in Hb. We discussed 2 treatment possibilities: 1. Increasing intake of oral iron 2. IV iron such as venofer. She is concerned that despite oral iron, and jimmy since she has side effects, that oral iron just isn't doing the job. She is willing to try iron sucrose IV. I calculated her iron deficit of ~800-1000mg of iron. We will give iron sucrose 200mg x 4 weekly doses and reassess here in 8 weeks. She prefers to get these infusions at [facility] and we will arange. Return to clinic in 8 weeks Lalit Apple MD [facility] Staffpresser hand Section of Hematology/Oncology [facility] Time spent : 60 mins Time of counselin mins documented in this encounter Procedure Notes Provider, Scanning - 01/30/2013 11:36 AM ESTAssociated Order(s): SCAN DOC: CHEMOTHERAPY documented in this encounter Plan of Treatment Upcoming Encounters Date Type Specialty Care Team Description 09/26/2022 Office Visit Dermatology Ambreen Burroughs MD [facility] DR SHAYY CASTILLO-DERMAT [place], [place] [address] (Ashvin disla) 10/02/2022 Office Visit Pulmonology Laney Calhoun [facility] Pulmonary Medicguido thornton [place], [place] [address] (Ashvin disla) 11/07/2022 Office Visit Ophthalmology Gifty Bernal MD [facility] [address] [place] [address] (Ashvin disla) documented as of this encounter Procedures Procedure Name Priority Date/Time Associated Comments Diagnosis CHEMOTHERAPY SCAN 01/30/2013 11:36 Result s for this AM EST procedure are i n the results section. SCAN, PERIPHERAL STAT 12/02/2012 3:55 PM Resul ts for this BLOOD EST procedure are i n the results section. DIFFERENTIAL, STAT 12/02/2012 3:55 PM Results for this AUTOMATED EST procedure are i n the results section. RETICULOCYTE COUNT STAT 12/02/2012 3:55 PM Iron deficiency Results for this EST anemia procedure are i n the results section. CBC (WITH DIFF) STAT 12/02/2012 3:55 PM Iron deficiency Res ults for this EST anemia procedure are i n the results section. FERRITIN STAT 12/02/2012 3:55 PM Iron deficiency Result s for this EST anemia procedure are i n the results section. documented in this encounter Results SCAN DOC: CHEMOTHERAPY (01/30/2013 11:36 AM EST) Narrative 01/30/2013 11:36 AM EST Procedure Note Provider, Scanning - 01/30/2013 11:36 AM EST Scanning Provider MEDIA MGR SCAN EXT ORDR/RSLT (ABNORMAL) Differential, Automated (12/02/2012 3:55 PM EST) [facility] gist Method Time Signature Neutrophils % 67.7 34.0 - CERNER 71.0 % MILLENNIUM Neutr Abs (ANC) 8.01 (H) 1.50 - CERNER 6.30 MILLENNIUM x10(3)/mc L Lymphocytes % 25.1 19.0 - CERNER 53.0 % MILLENNIUM Lymphocytes Abs 3.0 1.0 - 3.6 CERNER x10(3)/mc MILLENNIUM L Monocytes % 4.0 4.0 - CERNER 13.0 % MILLENNIUM Monocyte Abs 0.5 0.2 - 1.0 CERNER x10(3)/mc MILLENNIUM L Eosinophils % 2.5 0.0 - 7.0 CERNER % MILLENNIUM Eosinophils Abs 0.3 0.0 - 0.5 CERNER x10(3)/mc MILLENNIUM L Basophils % 0.4 0.0 - 2.0 CERNER % MILLENNIUM Basophils Abs 0.0 0.0 - 0.2 CERNER x10(3)/mc MILLENNIUM L Immature Gran % 0.30 0.00 - CERNER 0.66 % MILLENNIUM Comment: Immature granulocytes(IG's)percentage an d absolute count will include metamyelocytes, myelocytes, and promyelo cytes. Blood smears from CBCs yielding IG's will be scanned manually for gricel danjean-paul. If this scan disagrees with the automated IG or if promyelocytes are not ed, a manual differential will be performed. Kavitha Gran Abs 0.03 0.00 - 0.05 x10(3)/mcL CER NER MILLENNIUM Specimen Anatomical Collection Method Collection Time Receive d Time (Source) Location / / Volume Laterality Blood specimen 12/02/2012 3:55 PM 013 4:09 (specimen) EST PM EST Lalit Apple MD HEMATOLOGY ORDERABLES Performing Organization Address City/[facility]/ZIP [facility] Phon e Number [address] CERNER MILLENNIUM Scan, Peripheral Blood (12/02/2012 3:55 PM EST) [facility] Method Time Signature Plat Estimate Normal CERNER MILLENNIUM RBC Morphology Abnormal CERNER MILLENNIUM Microcytes gtr than 10 /HPF CERNER MILLENNIUM Hypochromia Slight CERNER MILLENNIUM Specimen Anatomical Collection Method Collection Time Receive d Time (Source) Location / / Volume Laterality Blood specimen 12/02/2012 3:55 PM 013 4:09 (specimen) EST PM EST Resulting Agency Comment Spec In Lab Lalit Apple MD HEMATOLOGY ORDERABLES Performing Organization Address City/[facility]/ZIP Code Phon e Number [address] CERNER MILLENNIUM (ABNORMAL) Reticulocyte Count (12/02/2012 3:55 PM EST) [facility] [employer] Method Time Signature Retic Ct % 1.7 0.5 - 2.4 CERNER % MILLENNIUM Retic Ct Abs 0.080 0.027 - CERNER 0.095 MILLENNIUM x10(6)/mc L Immature Retic% 25.9 (H) 2.3 - CERNER 15.9 % MILLENNIUM Reticulated Hgb 22.1 (L) 28.8 - CERNER 38.9 pg MILLENNIUM Plat Immature % 4.3 0.0 - 7.4 CERNER % MILLENNIUM Specimen Anatomical Collection Method Collection Time Receive d Time (Source) Location / / Volume Laterality Blood specimen 12/02/2012 3:55 PM 013 4:09 (specimen) EST PM EST Resulting Agency Comment Spec In Lab Lalit Apple MD HEMATOLOGY ORDERABLES Performing Organization Address City/[facility]/ZIP Code Phon e Number [address] CERNER MILLENNIUM (ABNORMAL) Ferritin (12/02/2012 3:55 PM EST) athologist Signature Ferritin 12 (L) 30 - 400 CERNER ng/mL MILLENNIUM Comment: Pediatric reference ranges not verified at [facility], interpret with caution. Reference ranges for females greater aryan n 50 years of age approach values for men, i.e., 30-400 ng/mL. Specimen Anatomical Collection Method Collection Time Receive d Time (Source) Location / / Volume Laterality Blood specimen 12/02/2012 3:55 PM 013 4:09 (specimen) EST PM EST Resulting Agency Comment Spec In Lab Lalit Apple MD CHEMISTRY ORDERABLES Performing Organization Address City/[facility] Phon e Number [address] CERNER MILLENNIUM (ABNORMAL) CBC (with Diff) (12/02/2012 3:55 PM EST) athologist Signature WBC 11.8 (H) 4.0 - 10.0 CERNER x10(3)/mcL MILLENNIUM RBC 4.90 3.93 - CERNER 5.22 MILLENNIUM x10(6)/mcL Hemoglobin 10.2 (L) 11.2 - CERNER 15.7 gm/dL MILLENNIUM Hematocrit 34.3 34.0 - CERNER 45.0 % MILLENNIUM MCV 70.0 (L) 79.0 - CERNER 94.0 fL MILLENNIUM MCH 20.8 (L) 26.6 - CERNER 32.2 pg MILLENNIUM MCHC 29.7 (L) 32.0 - CERNER 36.5 gm/dL MILLENNIUM Platelets 376 (H) 145 - 370 CERNER x10(3)/mcL MILLENNIUM RDWSD 49.0 (H) 35.0 - CERNER 46.0 fL [facility] RDWCV 19.4 (H) 10.9 - CERNER 14.4 % MILLENNIUM MPV 9.9 9.0 - 12.0 CERNER fL [facility] Specimen Anatomical Collection Method Collection Time Receive d Time (Source) Location / / Volume Laterality Blood specimen 12/02/2012 3:55 PM 013 4:09 (specimen) EST PM EST Resulting Agency Comment Spec In Lab Lalit Apple MD HEMATOLOGY ORDERABLES Performing Organization Address City/State/[place] [address] [facility] documented in this encounter Visit Diagnoses Diagnosis Iron deficiency anemia - Primary Iron deficiency anemia, unspecified documented in this encounter Care Teams Lunchroom Monitor Relationship Specialty Start Date End Date Olaf Michelle MD PCP - General 09/14/11 [address] [place] [address] documented as of this encounter
--- OUTSIDE RECORDS SUMMARY | 2022-09-15 01:28 | XMS_ITS | Encounter Summary ---
:1955 [place] [address] Care Team Providers Name Role Phone Samantha Michelle MD Primary Care Provider Encounter Details Date Type Department Care Team Description 06/18/2012 Ancillary Procedure Radiology Library at [place] [facility] [place] [address] ORTHOPAEDIC SURGERY [phone] [place], [place] [address] (Wo rk) Social History Tobacco [...] [facility] DR SHAYY CASTILLO-DERMAT [place], [place] [address] (Wo rk) 10/02/2022 Office Visit Pulmonology Laney Calhoun [facility] Pulmonary Medicguido thornton [place], [place] [address] (Wo rk) 11/07/2022 Office Visit Ophthalmology Gifty Bernal MD [facility] er [place] 0[address] (Wo rk) documented as of this encounter Procedures Procedure Name Priority Date/Time Associated Diagnosis Comme nts FILM LIBRARY Routine 06/18/2012 12:00 AM Results for this STORAGE ONLY MR EDT procedure ar e in ANKLE the results section. documented in this encounter Results Film Library- Storage Only MR Ankle (06/18/2012 12:00 AM EDT) Specimen (Source) Anatomical Location Collection Method / Collectio n Time Received Time / Laterality Volume Narrative JOHANA - 10/01/2019 8:07 PM EST This exam is auto-finalizing. It's purpo se is for storage only. Darnell Beasley MD IMG FILM LIBRARY ORDERABLES Performing Organization Address City/State/ZIP Code Phon e Number [facility] [place] documented in this encounter Visit Diagnoses Not on filedocumented in this encounter Care Teams Liquor Inspector Relationship Specialty Start Date End Date Samantha Michelle MD PCP - General 09/14/11 [address] [place] [address] documented as of this encounter
--- OUTSIDE RECORDS SUMMARY | 2022-09-15 01:28 | XMS_ITS | Encounter Summary ---
:1955 Author Organization [facility] [place] [address] Care Team Providers Name Role Phone Samantha Michelle MD Primary Care Provider Encounter Details Date Type Department Care Team Description 04/09/2012 Hospital Encounter G[place]ology at [facility] Faraz Valiente, [facility] [place] [address] [facility] [phone] [facility] [place], [place] [address] Social History Tobacco Use Types [...] Everywhere. COLONOSCOPY: WHAT TO EXPECT AT HOME ([place])UPPER GI ENDOSCOPY: WHAT TO EXPECT AT HOME ([place])documented in this encounter Medications at Time of [...] MD [facility] ER DR SHAYY CASTILLO-DERMAT [place] 0[address] (Wo rk) 10/02/2022 Office Visit Pulmonology Laney Calhoun M D [facility] Pulmonary Medicguido [place], [place] [address] (Wo rk) 11/07/2022 Office Visit Ophthalmology Gifty Bernal MD [facility] er [place], [place] [address] (Wo rk) documented as of this [...] COLONOSCOPY FLEXIBLE, 04/09/2012 12:31 anemia WITH BX (WRVU 3.66) PM EDT UPPER GI ENDOSCOPY 04/09/2012 12:31 anemia PM EDT COLONOSCOPY Routine 04/09/2012 12:21 Results for this PM EDT procedure are i n the results section. UPPER GI ENDOSCOPY Routine 04/09/2012 12:21 Resul ts for this PM EDT procedure are i n the results section. documented in this encounter Results SURGICAL PATHOLOGY REPORT (04/09/2012 3:53 PM EDT) [facility] Method Time Signature Surgical CERNER Pathology ? [facility] Report ? Provider: ?? FARAZ VALIENTE ?Pt. Name: ?? WILESPERANZA N, MILANA D ? Acc #: ?[id number] ?Pt. MRN: ?[id number] ? Col Date: ?? 2 ? /Sex: [...] MD PATHOLOGY/CYTOLOGY ORDERABLE S Performing Organization Address [facility] Phon e Number [address] CERNER MILLENNIUM Specimen to [...] MD PATHOLOGY/CYTOLOGY ORDERABLE S Performing Organization Address [facility] Code Phon e Number [address] CERNER MILLENNIUM Specimen to [...] MD PATHOLOGY/CYTOLOGY ORDERABLE S Performing Organization Address [facility] Phon e Number [place] [address] GLORIA MILLENNIUM COLONOSCOPY (04/09/2012 12:21 PM EDT) Component Value Ref Test Analysis Performed At [facility] Method Time Signature COLONOSCOPY [facility] PROVATION Endoscopy Patient Name: Milana Ruiz ? Procedure Date: 04/09/2012 12:21 PM ? Date of : 1955 ? Age: 56 ? Order #: [id number] ? Procedure: ? Colonoscopy Indications: ? Iron deficiency anemia, past h/o mi ld ? nonspecific colitis on coloni c bx Providers: ? Faraz Valiente MD, Monet bellamy, ? RN, Larry Alba, Waist Fitter Referring MD: ?Samantha Michelle MD Medicines: ? [...] UPPER GI ENDOSCOPY (04/09/2012 12:21 PM EDT) [facility] gist Method Time Signature UPPER GI [facility]ATION ENDOSCOPY Endoscopy Patient Name: Milana Ruiz ? Procedure Date: 04/09/2012 12:21 PM ? Date of : 1955 ? Age: 56 ? Order #: [id number] ? Procedure: ? Upper GI endoscopy Indications: ? fe def anemia Providers: ? Faraz Valiente MD, Monet bellamy, ? RN, Larry Alba, Waist Fitter Referring : ?Samantha Michelle MD Medicines: ? [...] reactions. The ? Endoscope was introduced thro [facility] the ? mouth, and advanced to the [...] MAR Action Action Date Dose Rate Site ondansetron (ZOFRAN) tablet 4 mg Given 04/09/2012 12:42 PM EDT 4 mg 4 mg, Oral, ONCE, 1 dose, On 04/09/12 at 1300, Endoscopy (Recovery-Hospital Unit), Routine sodium chloride 0.9% infusion New Bag 04/09/2012 11:37 AM EDT 30 mL/hr 30 mL/hr 30 mL/hr, Intravenous, CONTINUOUS, Starting on 04/09/12 at 1145, Until 04/09/12 at 1719, Endoscopy (Day of Procedure) documented in this encounter Active and Recently Administered Medications Times are shown in EDT. Scheduled Medication Order 04/07/2012 04/08/2012 04/09/2012 ondansetron (ZOFRAN) tablet 4 mg (COMPLETED) 1242 (Given - Provider: Monet Salazar RN) 4 mg, Oral, ONCE, 1 dose, 04/09/12 at 1300, Endo (Recovery-Hospital Unit), Routine Continuous [...] 04/09/12 at 1239, Until 04/09/12 at 1719, Sleep, Intra- Operative (Intra-Procedure), Routine 130 0 (Given - Provider: Elena Tapia RN - Comment: pt stilol awake)1312 (Given - Provider: Elena Tapia RN - Comment: pt uncomfortable)1330 (Given - Provider: Monet Salazar RN)1333 (Given - Provi sybil: Monet Salazar RN) documented in this encounter Care Teams Sales Product Manager Relationship Specialty Start Date End Date Samantha Michelle MD PCP - General 09/14/11 [address] [place] [address] documented as of this encounter
--- OUTSIDE RECORDS SUMMARY | 2022-09-15 01:28 | XMS_ITS | Encounter Summary ---
:1955 Author Organization [facility] [place] [address] Care Team Providers Name Role Phone Samantha Michelle MD Primary Care Provider Encounter Details Date Type Department Care Team Description 10/27/2011 Orders Only Orthopaedics at [facility] Fahad Kline, Knee pain (Primary [facility] [place] [address] ORTHOPAEDIC SURGERY [place], [place] [address] Social History Tobacco Use Types [...] Ambreen Burroughs MD [facility] ER DR SHAYY CASTILLO-DERMAT [place], [place] [address] (Wo rk) 10/02/2022 Office Visit Pulmonology Laney Calhoun M D [facility] er Pulmonary Medicguido thornton [place], [place] [address] (Wo rk) 11/07/2022 Office Visit Ophthalmology Gifty Bernal MD [facility] [address] [place] [address] (Wo rk) documented as of this encounter Results XR standing alignment (10/30/2011 [...] EST STANDING KNEE ALIGNMENT; AND BILATERAL K NEES, FIVE VIEWS, 10/30/11 CLINICAL INDICATION: ??Left knee [...] alignment in the weight bearing position. Mechanical [place]: ??The mechanical axis o n the right [...] alignment in the weight bearing position. Mechanical [place]: The mechanical axis on the right is [...] attending Fahad Kline MD IMG DX ORDERABLES XR knee 4 or more views (10/30/2011 [...] EST STANDING KNEE ALIGNMENT; AND BILATERAL K NEES, FIVE VIEWS, 10/30/11 CLINICAL INDICATION: ??Left knee [...] alignment in the weight bearing position. Mechanical [place]: ??The mechanical axis o n the right [...] alignment in the weight bearing position. Mechanical [place]: The mechanical axis on the right is [...] this encounter Visit Diagnoses Diagnosis Knee pain - Primary Pain in joint, lower leg Knee pain Pain in joint, lower leg Knee pain Pain in joint, lower leg documented in this encounter Care Teams Manager Welding Relationship Specialty Start Date End Date Samantha Michelle MD PCP - General 09/14/11 [address] [place] [address] documented as of this encounter
--- OUTSIDE RECORDS SUMMARY | 2022-09-15 01:28 | XMS_ITS | Encounter Summary ---
:1955 Author Organization [place] [address] Care Team Providers Name Role Phone Samantha Michelle MD Primary Care Provider Encounter Details Date Type Department Care Team Description 09/14/2011 Orders Only Orthopaedics at [facility] Fahad Kline, Knee pain (Primary [facility]) [place] [address] ORTHOPAEDIC SURGERY [place], [place] [address] Social History Tobacco Use Types Packs/Day Years Used Date Never Assessed Sex Assigned at Date Recorded Female 03/23/2021 8:16 AM EDT documented as of this encounter Plan of Treatment Upcoming Encounters Date Type Specialty Care Team Description 09/26/2022 Office Visit Dermatology Ambreen Burroughs MD [facility] DR [address]-DERMAT [place], [place] [address] (Wo rk) 10/02/2022 Office Visit Pulmonology Laney Calhoun M D [facility] Pulmonary Mati thornton [place], [place] [address] (Wo rk) 11/07/2022 Office Visit Ophthalmology Gifty Bernal MD [facility] [place], [place] [address] (Wo rk) documented as of this encounter Visit Diagnoses Diagnosis Knee pain - Primary Pain in joint, lower leg documented in this encounter Care Teams Signal Constructor Relationship Specialty Start Date End Date Samantha Michelle MD PCP - General 09/14/11 [address] [place] [address] documented as of this encounter
== END 2022-09-25 23:59 | disposition home or self-care (01) ==
LOC: INF 01:20
PROVIDERS: PCP Family Medicine; Visit Provider Nurse Practitioner Acute Care
DX: M33.90 Dermatopolymyositis, unspecified, organ involvement unspecified (principal)
CPT/HCPCS: 96372; Q0221

== ENCOUNTER 2022-09-28 03:00 | Outpatient (CLI) | payer OTHER, SELFPAY ==
[2022-09-28 17:18] LABS: Abs Immature Grans 0.07 10^3/uL (0.0-0.06); Absolute Basophil Count 0.06 10^3/uL (0.0-0.2); Absolute Eosinophil Count 0.39 10^3/uL (0.0-0.7); Absolute Lymphocyte Count 2.89 10^3/uL (1.2-3.4); Absolute Monocyte Count 0.69 10^3/uL (0.1-0.8); Absolute Neutrophil Count 7.29 10^3/uL (1.2-6.7); Basophils % 0.5; Eosinophils % 3.4; HCT 38.7 % (36.0-46.0); HGB 12.1 g/dL (11.2-15.7); Immature Grans % 0.6; Lymphocytes % 25.4; MCH 24.8 pg (27.0-33.0); MCHC 31.3 % (32.0-36.0); MCV 79 fL (80-95); MPV 10.1 fL (8.0-11.0); Monocytes % 6.1; Platelet Count 245 10^3/uL (130-400); RBC 4.88 10^6/uL (3.93-5.22); RDW 17.5 % (11.7-14.6); RDW-SD 50.1 fL; WBC 11.39 10^3/uL (4.4-10.8)
[2022-09-28 17:55] LABS: ALT 22 U/L (14-59); AST 18 U/L (15-37); Albumin 3.6 g/dL (3.4-5.0); Alkaline Phosphatase 112 U/L (46-116); Anion Gap 8.3 mmol/L (3-11); BUN 13 mg/dL (7-18); Bilirubin, Total 0.4 mg/dL (0.2-1.0); CO2 26.7 mmol/L (21.0-32.0); CREATININE 0.7 mg/dL (0.55-1.02); Calcium 10.5 mg/dL (8.5-10.1); Chloride 102 mmol/L (98-107); Estimated GFR 95.32 (mL/min/1.73m2); Glucose 132 mg/dL (74-106); Potassium 3.9 mmol/L (3.5-5.1); Sodium 137 mmol/L (136-145); Total Protein 7.9 g/dL (6.4-8.2)
[2022-10-02 08:18] LABS: IgE 23 IU/mL (<158)
== END 2022-09-28 03:01 | disposition home or self-care (01) ==
PROVIDERS: PCP Family Medicine; Visit Provider Internal Medicine Critical Care Medicine
DX: J45.40 Moderate persistent asthma, uncomplicated (principal); Z79.899 Other long term (current) drug therapy
CPT/HCPCS: 36415; 80053; 82785; 85025

== ENCOUNTER → 2022-10-02 02:06 | Outpatient (CLI) | payer OTHER, SELFPAY ==
--- NOTE | 2022-10-02 11:30 | DI.RAD_ITS ---
Exam(s) XR FOREARM LT EXAM: XR FOREARM LT CLINICAL HISTORY: SUBCUTANEOUS MASS, R22.9. TECHNIQUE: 2D digital imaging was performed. COMPARISON: No exams were available for comparison FINDINGS: Two views: There is a small round metallic skin marker in place over the volar aspect of forearm. No evidence of obvious discernible mass this level. Bones appear unremarkable. No fractures. No os seous lesions. IMPRESSION: As above; if clinically indicated further study with MRI or CT scan can be performed. DATA REPOSITORY: RADIATION DOSE DELIVERED:
== END ==
PROVIDERS: PCP Family Medicine; Visit Provider Internal Medicine Rheumatology
DX: R22.32 Localized swelling, mass and lump, left upper limb (principal)
CPT/HCPCS: 73090

== ENCOUNTER 2023-02-02 12:57 | Emergency (ER) | payer OTHER, SELFPAY ==
[2023-02-02] VITALS (25 sets, daily range): BP systolic 129–162; BP diastolic 62–83; PULSE 69–86; RESP 12–22; TEMP 36.8; O2SAT 85–100
--- NOTE | 2023-02-02 14:00 | DI.CT_ITS ---
Exam(s) CT HEAD WO EXAM: CT HEAD WO CLINICAL HISTORY: Dizziness, Headache. TECHNIQUE: Imaging Protocol: Axial computed tomography images with coronal and sagittal reformatted images were created and reviewed COMPARISON: CT SINUS CT WITHOUT CONTRAST from 06/10/2015 FINDINGS: Ventricles and Extra axial spaces: Normal in size and morphology for the patient's age. Hemorrhage: None. Cerebral parenchyma: Normal. Midline shift: None. Brainstem/Cerebellum: Normal. Calvarium: Normal. Visualized Paranasal sinuses/Mastoids: Clear. Soft Tissues: Unremarkable. IMPRESSION: 1. No acute intracranial process. 2. Findings were discussed with the emergency department at 4:17 p.m. on 02/02/2023. RADIATION DOSE DELIVERED: 856.11mGy.cm Total DLP DATA REPOSITORY: All CT scans at this facility are submitted to the National Radiology Data Registry (NRDR) Dose Index Registry (DIR) with the [employer] ([employer]). RADIATION OPTIMIZATION: All CT scans at this facility use at least one of these dose optimization te chniques: automated exposure control; mA and/or kV adjustment per patient size (includes targeted exa ms where dose is matched to clinical indication); or iterative reconstruction.
--- NOTE | 2023-02-02 14:02 | ED.GENADUL_ITS ---
Discharge Plan Disposition Patient Disposition: Home Condition: Stable Discharge Details Clinical Impression: Nausea and vomiting, Diarrhea Primary Care Provider: Samantha Michelle V ED Provider: Cici Freedman Home Meds and New Rx's Prescriptions: New ondansetron 4 mg tablet,disintegrating 4 mg PO Q6H PRNQty: 10 0RF Continued clobetasol 0.05 % ointment 1 applic topical QHS Qty: 45 4RF Rx Instructions: applu to introitus, site of vulvar burning. esomeprazole magnesium [Nexium] 20 MG capsule,delayed release(DR/EC) 40 mg PO HS escitalopram oxalate [Lexapro] 20 MG tablet 20 mg PO HS levalbuterol tartrate 45 mcg/actuation HFA aerosol inhaler 2 inh IH Q4H Qty: 15 0RF Rx Instructions: Give 2 puffs every 4 hours PRN sumatriptan succinate 25 mg tablet 25 mg PO ONCE Qty: 10 0RF epinephrine [EpiPen] 0.3 mg/0.3 mL auto-injector 0.3 mg IM ONCE Qty: 2 1RF Rx Instructions: as a single dose ketoconazole 2 % cream 1 applic topical BID Qty: 60 1RF levothyroxine 125 MCG tablet 125 mcg PO HS metoprolol succinate 25 mg tablet extended release 24 hr 50 mg PO HS alprazolam [Xanax] 0.25 mg Tablet 0.25 mg PO PRN PRN Rx Instructions: 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 montelukast [Singulair] 10 mg Tablet 10 mg PO DAILY Eliquis 5 mg Tablet 5 mg PO BID Discharge Instructions Instructions: Acute Nausea and Vomiting (ED), Acute Diarrhea (ED) Additional Instructions: Stop your Eliquis if you continue to have bleeding If bleeding continues and you are symptomatic return for evaluation. If he remains stable Increase fluids to stay well-hydrated Referrals: Samantha Michelle MD [Primary Care Provider] - Medical Decision Making <Merle Mckinnon NP - Last Filed: 02/02/23 15:36> 67-year-old female presents to the ER with chief complaint of headache, nausea vomiting diarrhea and near syncope which she reports began yesterday. She did have IVIG infusions at [facility] on Sunday and Sunday. She reports that abdominal pain began this morning. She has taken Tylenol for the headache which has not helped. She did have 1 episode of emesis. Does have a past medical history of dermatomyositis, atrial fibrillation she does have a loop recorder, hypothyroidism, high blood pressure, GERD obesity anxiety and iron deficiency anemia obstructive sleep apnea. Abdominal surgeries include appendectomy, left ectopic and uterine ablation. She is on Eliquis. Work-up ordered including CBC CMP, urinalysis, troponin EKG and head CT. CBC shows slight leukocytosis with a white blood cell count of 13.60, RBCs 5.53, absolute neutrophils 10.20, sodium potassium within normal limits, calcium slightly elevated at 10.5, glucose 147 alk phos 120 troponin is pending at this time. Urinalysis shows 30 protein no leukocytes no nitrites. Patient was given a liter of saline and 4 mg of Zofran. At this time awaiting troponin, head CT. Care is to be handed off to oncoming provider Cici Freedman AXLE TURNER pending CT and labs and disposition. Patient is hemodynamically stable at the time of this dictation. I did discuss patient case in details with her she verbalized understanding. <Cici Freedman, AXLE TURNER - Last Filed: 02/02/23 17:13> 67-year-old female presents to the ER with chief complaint of headache, nausea vomiting diarrhea and near syncope which she reports began yesterday. She did have IVIG infusions at [facility] on Sunday and Sunday. She reports that abdominal pain began this morning. She has taken Tylenol for the headache which has not helped. She did have 1 episode of emesis. Does have a past medical history of dermatomyositis, atrial fibrillation she does have a loop recorder, hypothyroidism, high blood pressure, GERD obesity anxiety and iron deficiency anemia obstructive sleep apnea. Abdominal surgeries include appendectomy, left ectopic and uterine ablation. She is on Eliquis. Work-up ordered including CBC CMP, urinalysis, troponin EKG and head CT. CBC shows slight leukocytosis with a white blood cell count of 13.60, RBCs 5.53, absolute neutrophils 10.20, sodium potassium within normal limits, calcium slightly elevated at 10.5, glucose 147 alk phos 120 troponin is pending at this time. Urinalysis shows 30 protein no leukocytes no nitrites. Patient was given a liter of saline and 4 mg of Zofran. At this time awaiting troponin, head CT. Care is to be handed off to oncoming provider Cici Freedman NP pending CT and labs and disposition. Patient is hemodynamically stable at the time of this dictation. I did discuss patient case in details with her she verbalized understanding Reviewed chart and labs with patient. Her symptoms remain unchanged. She continues to have a headache and diarrhea she noted a little bit of blood in the last stooling. She denies any new symptoms at this time her head CT was reviewed with her we did discuss whether to move forward with repeat troponin which she would like to defer at this time. Requesting discharge to home she will follow-up outpatient as previously scheduled sooner if needed I am going to put in lab basic metabolic panel and CBC for Sunday morning she will return sooner if continues with bloody diarrhea HPI <Merle Mckinnon NP - Last Filed: 02/02/23 15:36> General Mode of arrival: ambulatory . Date/Time Provider Initiated Documentation: 02/02/23 13:38 . Limitations to Documentation: no limitations . Information obtained by: patient, RN notes reviewed and old records reviewed . HPI Narrative: 67-year-old female presents to the ER with chief complaint of headache, nausea vomiting diarrhea and near syncope which she reports began yesterday. She did have IVIG infusions at [facility] on Sunday and Sunday. She reports that abdominal pain began this morning. She has taken Tylenol for the headache which has not helped. She did have 1 episode of emesis. Does have a past medical history of dermatomyositis, atrial fibrillation she does have a loop recorder, hypothyroidism, high blood pressure, GERD obesity anxiety and iron deficiency anemia obstructive sleep apnea. Abdominal surgeries include appendectomy, left ectopic and uterine ablation. She is on Eliquis. Related Data Home Medications Medication Instructions Recorded Confirmed Lexapro 20 mg tablet (escitalopram 20 mg PO HS 04/25/13 02/02/23 oxalate) Nexium 20 mg capsule,delayed 40 mg PO HS 04/25/13 02/02/23 release (esomeprazole magnesium) levalbuterol tartrate 45 2 inh inhalation Q4H #15 grams 11/13/18 02/02/23 mcg/actuation aerosol inhaler alprazolam 0.25 mg tablet (Xanax) 0.25 mg PO PRN PRN 05/26/19 02/02/23 levothyroxine 125 mcg tablet 125 mcg PO HS 05/26/19 02/02/23 metoprolol succinate 25 mg 50 mg PO HS 05/26/19 02/02/23 tablet,extended release 24 hr sumatriptan succinate 25 mg tablet 25 mg PO ONCE #10 tabs 07/15/20 02/02/23 epinephrine 0.3 mg/0.3 mL 0.3 mg (0.3 mL) IM ONCE #2 ea 11/23/20 02/02/23 injection, auto-injector (EpiPen) clobetasol 0.05 % topical ointment 1 applic topical QHS #45 grams 02/08/22 02/02/23 ketoconazole 2 % topical cream 1 applic topical BID #60 grams 09/19/22 02/02/23 apixaban 5 mg tablet (Eliquis) 5 mg PO BID 02/02/23 02/02/23 montelukast 10 mg tablet 10 mg PO DAILY 02/02/23 02/02/23 (Singulair) ondansetron 4 mg disintegrating 4 mg PO Q6H PRN #10 tabs 02/02/23 tablet Previous Rx's Medication Instructions Recorded levalbuterol tartrate 45 2 inh inhalation Q4H #15 grams 11/13/18 mcg/actuation aerosol inhaler sumatriptan succinate 25 mg tablet 25 mg PO ONCE #10 tabs 07/15/20 epinephrine 0.3 mg/0.3 mL 0.3 mg (0.3 mL) IM ONCE #2 ea 11/23/20 injection, auto-injector (EpiPen) clobetasol 0.05 % topical ointment 1 applic topical QHS #45 grams 02/08/22 ketoconazole 2 % topical cream 1 applic topical BID #60 grams 09/19/22 ondansetron 4 mg disintegrating 4 mg PO Q6H PRN #10 tabs 02/02/23 tablet Allergies Allergy/AdvReac Type Severity Reaction Status Date / Time cefaclor [From Ceclor] Allergy Severe Anaphylaxsi Unverified 02/08/22 12:48 s Penicillins Allergy Severe Anaphylaxsi Unverified 02/08/22 12:48 s promethazine HCl Allergy Severe sulfite Unverified 02/08/22 12:48 [From Phenergan] will cause anaphylaxsis vancomycin Allergy Severe Hives Unverified 02/08/22 12:48 oxycodone HCl [From Percocet] Allergy Intermediate Hives, Unverified 02/08/22 12:48 Vomiting Sulfites Allergy Severe Anaphylaxsi Uncoded 02/08/22 12:48 s General Stated Complaint: Nausea/Vomit/Diar TAMMIE: 3 Review of Systems <Merel Mckinnon NP - Last Filed: 02/02/23 15:36> All systems reviewed & are unremarkable except as noted in HPI and below Constitutional Constitutional: Reports body ache(s), Reports headache(s) and Denies weakness ENT Ears, Nose, Mouth, and Throat: Reports dizziness and Reports headache(s) Cardiovascular Cardiovascular: Denies chest pain and Reports dyspnea Respiratory Respiratory: Denies cough and Reports dyspnea Gastrointestinal Gastrointestinal: Reports abdominal pain, Reports diarrhea, Reports nausea and Reports vomiting Musculoskeletal Musculoskeletal: Denies numbness and Denies tingling Neurologic Neurologic: Denies confusion, Reports dizziness, Reports headache(s), Denies memory loss, Denies numbness, Denies tingling and Denies weakness Psychiatric Psychiatric: Denies confusion and Denies memory loss PFS <Merle Mckinnon NP - Last Filed: 02/02/23 15:36> All Active Problems (Updated 02/02/23 @ 17:08 by Cici Freedman NP) Nausea and vomiting (Acute) Diarrhea (Acute) Dermatomyositis (Acute) Encounter for screening laboratory testing for COVID-19 virus (Acute) Cough (Acute) Atrophic vaginitis (Acute) Vulvar burning (Acute) 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) Depression (Chronic) Medical History (Updated 02/02/23 @ 17:08 by Cici Freedman NP) Anterior epistaxis (05/20/15) Anxiety Chronic rhinitis (06/10/15) 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 Deviated nasal septum (05/20/15) GERD (gastroesophageal reflux disease) History of postoperative nausea and vomiting severe - treated successfully w/Ativan per Pt Hx of ectopic 1974 ruptured Hx of iron deficiency anemia iron infusions (post menopausal bleeding) Hypothyroidism Influenza A with pneumonia (12/20/13) Lone atrial fibrillation Morbid obesity with BMI of 40.0-44.9, adult GINO on CPAP Primary osteoarthritis of right knee Seasonal allergies Serum calcium elevated Surgical History (Updated 01/13/22 @ 11:31 by Luh Vazquez MD) History of appendectomy History of arthroplasty of knee Left 2011 History of colonoscopy History of esophagogastroduodenoscopy (EGD) History of prior ablation treatment Uterine History of tonsillectomy History of total right knee replacement (TKR) Hx of basal cell carcinoma excision Hx of cholecystectomy Hx of dilation and curettage Status post carpal tunnel release Right 2018. Left open carpal tunnel release 2019. Status post total knee replacement Left knee. Family History (Updated 05/26/19 @ 14:04 by Bethanie Syed RN) Other Diabetes FHx: allergies Family hx of ALS (amyotrophic lateral sclerosis) Social History Smoking/Tobacco Use Status: Former Tobacco Use Smoking risk assessment performed?: Yes Drug use: Never Exam <Merle Mckinnon NP - Last Filed: 02/02/23 15:36> Narrative Exam Narrative: Constitutional: Alert and oriented x3. Appears stated age. Normal body habitus. Head: Normocephalic, no trauma. Eyes: Pupils PERRL, Red reflex noted, EOM's intact. Eyelids symmetrical without lesions, discharge, or swelling. ENT: Bilateral TM's WNL, External ear normal to inspection, no mastoid TTP, swelling, or erythema, Nasal turbinates WNL, no nasal discharge. Normal dentition, Posterior pharynx WNL, no exudate. Chest: RRR, Normal S1, S2, distal pulses intact. Resp: Lungs clear to auscultation bilaterally, no wheezes, rales, or rhonchi. Abdomen: Soft, non-distended, Normoactive bowel sounds all 4 quads. Musculoskeletal: Normal gait, 5/5 strength to all four extremities. Skin: No suspicious rashes or lesions. Capillary refill less than 2 sec. Neurologic: Cranial nerves II-XII intact. Alert and oriented x 3. Motor: No deficits noted. Sensory: Intact bilaterally all 4 extremities. Reflexes: DTR's intact bilaterally.. Hematologic/Lymphatic: No ecchymosis, no lymphadenopathy. Course <Merle Mckinnon NP - Last Filed: 02/02/23 15:36> Vital Signs Vital signs: Vital Signs Temperature 36.8 C 02/02/23 13:20 Pulse 86 02/02/23 13:20 Respiratory Rate 16 02/02/23 13:20 Blood Pressure 146/83 H 02/02/23 13:20 Pulse Oximetry 97 02/02/23 13:20 Temperature 36.8 C 02/02/23 13:20 Temperature Source Tympanic 02/02/23 13:20 Pulse 86 02/02/23 13:20 Respiratory Rate 16 02/02/23 13:20 Blood Pressure 146/83 H 02/02/23 13:20 Blood Pressure Position Sitting 02/02/23 13:20 Pulse Oximetry 97 02/02/23 13:20 Oxygen Delivery Method Room Air 02/02/23 13:20 Oxygen Flow Rate 0 02/02/23 13:20 Pain Level 7 02/02/23 13:20 Sign Out <Merle Mckinnon NP - Last Filed: 02/02/23 15:36> Sign Out Data: Sign Out Comment: Here with headache, nausea vomiting diarrhea after IVIG infusion on Sunday and Sunday at [facility]. Pending CT head and troponin and disposition. Last updated by Merle Mckinnon NP at 02/02/23 15:37
--- NOTE | 2023-02-02 14:15 | RT.EKG_ITS ---
APPROVED REPORT Exam: Resting ECG Reason for Exam: Near Syncope Patient Location: E HR:69 bpm ECG Measurements Heart Rate 69 AXIS VA 145 P 47 QRSd 127 QRS 14 QT 402 T 43 QTc 430 Conclusion Sinus rhythm...normal P axis, V-rate 60- 99 Nonspecific intraventricular conduction delay...QRSd >115mS, not LBBB/RBBB
[2023-02-02] MEDS: Normal Saline 1,000 ML 1000 ML IV (14:25)
[2023-02-02] MEDS: Ondansetron 4 MG/2 ML VIAL IVP (14:25)
[2023-02-02 14:34] LABS: Abs Immature Grans 0.09 10^3/uL (0.0-0.06); Absolute Basophil Count 0.07 10^3/uL (0.0-0.2); Absolute Eosinophil Count 0.14 10^3/uL (0.0-0.7); Absolute Lymphocyte Count 2.19 10^3/uL (1.2-3.4); Absolute Monocyte Count 0.91 10^3/uL (0.1-0.8); Basophils % 0.5; HCT 42.5 % (36.0-46.0); HGB 13.5 g/dL (11.2-15.7); Immature Grans % 0.7; Lymphocytes % 16.1; MCH 24.4 pg (27.0-33.0); MCHC 31.8 % (32.0-36.0); MCV 77 fL (80-95); MPV 10.1 fL (8.0-11.0); Monocytes % 6.7; Platelet Count 292 10^3/uL (130-400); RBC 5.53 10^6/uL (3.93-5.22); RDW 17.2 % (11.7-14.6)
[2023-02-02 14:45] LABS: ALT 22 U/L (14-59); AST 19 U/L (15-37); Albumin 3.5 g/dL (3.4-5.0); Alkaline Phosphatase 120 U/L (46-116); Anion Gap 7.5 mmol/L (3-11); BUN 14 mg/dL (7-18); Bilirubin, Total 0.5 mg/dL (0.2-1.0); CO2 28.5 mmol/L (21.0-32.0); Calcium 10.5 mg/dL (8.5-10.1); Chloride 100 mmol/L (98-107); Estimated GFR 62.13 (mL/min/1.73m2); Glucose 147 mg/dL (74-106); Magnesium 2.1 mg/dL (1.8-2.4); Sodium 136 mmol/L (136-145); Total Protein 9.3 g/dL (6.4-8.2)
[2023-02-02 14:46] LABS: Bilirubin Negative (Negative); Blood Negative (Negative); Clarity Clear (Clear); Glucose Negative (Negative); Ketones Negative (Negative); Leukocyte Esterase Negative (Negative); Nitrite Negative (Negative); Specific Gravity 1.025 (1.005-1.025); Urobilinogen 0.2 mg/dL (Up to 0.2); pH 6.5 (5-8)
[2023-02-02 15:21] LABS: RBC Negative HPF (0-2); WBC 0-2 HPF (0-5)
[2023-02-02 15:22] LABS: Bacteria Rare HPF (Negative); C & S Indicated? No; Casts Negative LPF (Negative); Crystals Negative HPF (Negative); Epithelial Cells Rare HPF (Negative); Mucus Trace (Negative); Other Cells Negative (Negative)
[2023-02-02 16:02] LABS: Troponin I < 50 ng/L (<or=60)
== END 2023-02-02 17:24 | disposition home or self-care (01) ==
PROVIDERS: Registered Nurse Emergency; Emergency Provider Nurse Practitioner Acute Care; PCP Family Medicine
DX: R55 Syncope and collapse (principal); R11.2 Nausea with vomiting, unspecified; R19.7 Diarrhea, unspecified; R51.9 Headache, unspecified; R10.9 Unspecified abdominal pain; D72.829 Elevated white blood cell count, unspecified; Z79.620 Long term (current) use of immunosuppressive biologic
CPT/HCPCS: 36415; 80053; 93005; 96361; 96374; 99284; 70450; 81003; 81015; 83735; 84484; 85025; 93010; J2405

== ENCOUNTER 2023-02-05 17:24 | Outpatient (CLI) | payer OTHER, SELFPAY ==
[2023-02-05 14:59] LABS: Abs Immature Grans 0.07 10^3/uL (0.0-0.06); Absolute Eosinophil Count 0.28 10^3/uL (0.0-0.7); Absolute Neutrophil Count 7.29 10^3/uL (1.2-6.7); Basophils % 0.4; Eosinophils % 2.5; HCT 41.5 % (36.0-46.0); HGB 12.9 g/dL (11.2-15.7); Immature Grans % 0.6; Lymphocytes % 24.6; MCH 24.4 pg (27.0-33.0); MCHC 31.1 % (32.0-36.0); MCV 78 fL (80-95); MPV 10.1 fL (8.0-11.0); Monocytes % 6.3; Neutrophils % 65.6; Platelet Count 270 10^3/uL (130-400); RBC 5.29 10^6/uL (3.93-5.22); RDW 17.4 % (11.7-14.6); RDW-SD 49.1 fL; WBC 11.12 10^3/uL (4.4-10.8)
[2023-02-05 15:00] LABS: Absolute Basophil Count 0.04 10^3/uL (0.0-0.2); Absolute Lymphocyte Count 2.74 10^3/uL (1.2-3.4)
[2023-02-05 15:12] LABS: Anion Gap 4.7 mmol/L (3-11); BUN 9 mg/dL (7-18); CO2 30.3 mmol/L (21.0-32.0); CREATININE 0.8 mg/dL (0.55-1.02); Calcium 10.4 mg/dL (8.5-10.1); Chloride 102 mmol/L (98-107); Estimated GFR 81.21 (mL/min/1.73m2); Glucose 128 mg/dL (74-106); Potassium 4.2 mmol/L (3.5-5.1); Sodium 137 mmol/L (136-145)
== END 2023-02-05 17:25 | disposition home or self-care (01) ==
LOC: LBO 17:24
PROVIDERS: PCP Family Medicine; Visit Provider Nurse Practitioner Acute Care
DX: K92.1 Melena (principal); Z79.01 Long term (current) use of anticoagulants
CPT/HCPCS: 36415; 80048; 85025

== ENCOUNTER 2023-03-13 15:14 | Outpatient (REF) | payer OTHER, SELFPAY ==
[2023-03-13 20:25] LABS: ESR 49 mm/hr (0-30)
[2023-03-13 20:56] LABS: C-Reactive Protein 3.04 mg/dL (0.0-0.3)
[2023-03-14 08:44] LABS: TSH (W/Ref FT4) 2.12 uIU/mL (0.36-3.74)
== END 2023-03-13 15:15 | disposition home or self-care (01) ==
LOC: NCHCN 15:14
PROVIDERS: PCP Family Medicine; Visit Provider Family Medicine
DX: M79.18 Myalgia, other site (principal); M33.90 Dermatopolymyositis, unspecified, organ involvement unspecified; R73.03 Prediabetes; E03.9 Hypothyroidism, unspecified; Z73.0 Burn-out
CPT/HCPCS: 85652; 83036; 84443; 86140

== ENCOUNTER 2023-03-15 18:44 | Outpatient (REF) | payer OTHER, SELFPAY ==
[2023-03-26 15:35] LABS: 6-Methylmercaptopurine ribosid 6.36 nmol/mL/h (5.04-9.57)
== END 2023-03-15 18:45 | disposition home or self-care (01) ==
LOC: LBN 18:44
PROVIDERS: PCP Family Medicine; Visit Provider Dermatology
DX: Z79.899 Other long term (current) drug therapy (principal); M33.90 Dermatopolymyositis, unspecified, organ involvement unspecified
CPT/HCPCS: 82657

== ENCOUNTER 2023-03-22 18:45 | Outpatient (REF) | payer OTHER, SELFPAY ==
[2023-03-22 19:06] LABS: Creatine Kinase 65 U/L (26-192)
== END 2023-03-22 18:46 | disposition home or self-care (01) ==
LOC: LBO 18:45
PROVIDERS: PCP Family Medicine; Visit Provider Internal Medicine Rheumatology
DX: M33.90 Dermatopolymyositis, unspecified, organ involvement unspecified (principal)
CPT/HCPCS: 82550

== ENCOUNTER 2023-05-04 14:16 | Outpatient (CLI) | payer OTHER, SELFPAY ==
[2023-05-04 15:47] LABS: ESR 24 mm/hr (0-30)
[2023-05-04 16:16] LABS: C-Reactive Protein 1.76 mg/dL (0.0-0.3)
[2023-05-04 16:35] LABS: Abs Immature Grans 0.06 10^3/uL (0.0-0.06); Absolute Basophil Count 0.04 10^3/uL (0.0-0.2); Absolute Eosinophil Count 0.19 10^3/uL (0.0-0.7); Absolute Lymphocyte Count 1.38 10^3/uL (1.2-3.4); Absolute Monocyte Count 0.59 10^3/uL (0.1-0.8); Absolute Neutrophil Count 7.77 10^3/uL (1.2-6.7); Basophils % 0.4; Eosinophils % 1.9; HCT 42.1 % (36.0-46.0); HGB 13.4 g/dL (11.2-15.7); Immature Grans % 0.6; Lymphocytes % 13.8; MCH 25.4 pg (27.0-33.0); MCHC 31.8 % (32.0-36.0); MCV 80 fL (80-95); MPV 10.4 fL (8.0-11.0); Monocytes % 5.9; Neutrophils % 77.4; Platelet Count 288 10^3/uL (130-400); RBC 5.28 10^6/uL (3.93-5.22); RDW 17.9 % (11.7-14.6); RDW-SD 51.9 fL; WBC 10.03 10^3/uL (4.4-10.8)
[2023-05-04 16:48] LABS: ALT 99 U/L (14-59); AST 112 U/L (15-37); Albumin 3.8 g/dL (3.4-5.0); Alkaline Phosphatase 187 U/L (46-116); Anion Gap 6.3 mmol/L (3-11); BUN 10 mg/dL (7-18); Bilirubin, Total 0.5 mg/dL (0.2-1.0); CO2 28.7 mmol/L (21.0-32.0); CREATININE 0.9 mg/dL (0.55-1.02); Calcium 10.6 mg/dL (8.5-10.1); Chloride 102 mmol/L (98-107); Estimated GFR 70.51 (mL/min/1.73m2); Glucose 141 mg/dL (74-106); Potassium 4.2 mmol/L (3.5-5.1); Sodium 137 mmol/L (136-145)
== END 2023-05-04 14:17 | disposition home or self-care (01) ==
LOC: LBO 14:16
PROVIDERS: Nurse Practitioner Family; PCP Family Medicine; Visit Provider Family Medicine
DX: M35.3 Polymyalgia rheumatica (principal); Z79.899 Other long term (current) drug therapy
CPT/HCPCS: 36415; 80053; 85652; 85025; 86140

== ENCOUNTER 2023-06-08 17:14 | Outpatient (REF) | payer OTHER, SELFPAY ==
[2023-06-08 19:00] LABS: ESR 29 mm/hr (0-30)
[2023-06-08 20:32] LABS: ALT 25 U/L (14-59); AST 15 U/L (15-37); Albumin 3.7 g/dL (3.4-5.0); Alkaline Phosphatase 110 U/L (46-116); Anion Gap 10.3 mmol/L (3-11); BUN 13 mg/dL (7-18); Bilirubin, Total 0.3 mg/dL (0.2-1.0); CO2 26.7 mmol/L (21.0-32.0); CREATININE 0.8 mg/dL (0.55-1.02); Calcium 10.7 mg/dL (8.5-10.1); Chloride 102 mmol/L (98-107); Estimated GFR 80.71 (mL/min/1.73m2); Glucose 125 mg/dL (74-106); Potassium 4.5 mmol/L (3.5-5.1); Sodium 139 mmol/L (136-145); Total Protein 7.9 g/dL (6.4-8.2)
[2023-06-08 20:53] LABS: C-Reactive Protein 1.42 mg/dL (0.0-0.3)
[2023-06-11 10:47] LABS: Parathyroid Hormone,Intact 70 pg/mL (19-88)
== END 2023-06-08 17:15 | disposition home or self-care (01) ==
LOC: NCHCN 17:14
PROVIDERS: PCP Family Medicine; Visit Provider Family Medicine
DX: E03.9 Hypothyroidism, unspecified (principal); M35.3 Polymyalgia rheumatica
CPT/HCPCS: 80053; 85652; 83970; 86140

== ENCOUNTER 2023-07-20 08:09 | Outpatient (REF) | payer OTHER, SELFPAY ==
[2023-07-20 09:31] LABS: Bacteria Rare HPF (Negative); C & S Indicated? C&S Done As Ordered; Casts Negative LPF (Negative); Crystals Negative HPF (Negative); Epithelial Cells Rare HPF (Negative); Mucus Moderate (Negative); Other Cells Negative (Negative); RBC 20-50 HPF (0-2); WBC >50 HPF (0-5)
== END 2023-07-20 08:10 | disposition home or self-care (01) ==
LOC: LBN 08:09
PROVIDERS: PCP Family Medicine; Referring Provider Nurse Practitioner Family; Visit Provider Nurse Practitioner Family
DX: R31.9 Hematuria, unspecified (principal); R82.998 Other abnormal findings in urine
CPT/HCPCS: 81015; 87086

== ENCOUNTER 2023-07-27 18:02 | Outpatient (REF) | payer OTHER, SELFPAY ==
[2023-07-27 19:09] LABS: Abs Immature Grans 0.06 10^3/uL (0.0-0.06); Absolute Basophil Count 0.04 10^3/uL (0.0-0.2); Absolute Eosinophil Count 0.16 10^3/uL (0.0-0.7); Absolute Lymphocyte Count 2.27 10^3/uL (1.2-3.4); Absolute Neutrophil Count 7.44 10^3/uL (1.2-6.7); Basophils % 0.4; Eosinophils % 1.5; HGB 12.6 g/dL (11.2-15.7); Immature Grans % 0.6; Lymphocytes % 21.3; MCH 25.8 pg (27.0-33.0); MCHC 31.5 % (32.0-36.0); MCV 82 fL (80-95); MPV 10.9 fL (8.0-11.0); Monocytes % 6.6; Neutrophils % 69.6; Platelet Count 270 10^3/uL (130-400); RBC 4.88 10^6/uL (3.93-5.22); RDW 17.2 % (11.7-14.6); RDW-SD 51.3 fL; WBC 10.67 10^3/uL (4.4-10.8)
[2023-07-27 19:15] LABS: ESR 28 mm/hr (0-30)
[2023-07-27 19:26] LABS: C-Reactive Protein 1.55 mg/dL (0.0-0.3)
[2023-07-27 20:07] LABS: Vitamin D 25 Total 27.2 ng/mL (30-100)
[2023-07-27 20:25] LABS: ALT 23 U/L (14-59); AST 16 U/L (15-37); Albumin 3.6 g/dL (3.4-5.0); Alkaline Phosphatase 102 U/L (46-116); Anion Gap 9.2 mmol/L (3-11); BUN 12 mg/dL (7-18); Bilirubin, Total 0.4 mg/dL (0.2-1.0); CO2 25.8 mmol/L (21.0-32.0); CREATININE 0.8 mg/dL (0.55-1.02); Calcium 10.6 mg/dL (8.5-10.1); Chloride 103 mmol/L (98-107); Estimated GFR 80.71 (mL/min/1.73m2); Glucose 113 mg/dL (74-106); Potassium 4.6 mmol/L (3.5-5.1); Sodium 138 mmol/L (136-145); Total Protein 7.2 g/dL (6.4-8.2)
== END 2023-07-27 18:03 | disposition home or self-care (01) ==
LOC: NCHCN 18:02
PROVIDERS: Nurse Practitioner Family; PCP Family Medicine; Visit Provider Family Medicine
DX: E21.3 Hyperparathyroidism, unspecified; M35.3 Polymyalgia rheumatica; M79.10 Myalgia, unspecified site; Z00.00 Encounter for general adult medical examination without abnormal findings
CPT/HCPCS: 80053; 82306; 85652; 85025; 86140

== ENCOUNTER → 2023-08-07 01:49 | Outpatient (CLI) | payer OTHER, SELFPAY ==
--- NOTE | 2023-08-07 | DI.DEXA_ITS ---
Exam(s) XR DEXA BONE DENSITY W/WO PAULINE EXAM: XR DEXA BONE DENSITY W/WO PAULINE CLINICAL HISTORY: POSTMENOPAUSAL Z78.0 HYPERPARATHYROIDISM E21.3 SCREENING OSTEOPOROSIS TECHNIQUE: Hologic Horizon C densitometer analysis of left hip, lumbar spine and right forearm. La teral survey image of the thoracic and lumbar spine. COMPARISON: CR XR FOREARM LT from 10/02/2022 FINDINGS: Lateral view of the thoracic and lumbar spine shows no evidence of compression fractures. Bone mineral density measurements of the lumbar spine correspond to a total T-score of 3.1, in the n ormal range. Bone mineral density measurements of the left hip correspond to a total T-score of 1.2. The femoral neck T-score is -0.4, in the normal range.. Theright forearm bone mineral density measurements correspond to a T-score of the distal 3rd of -0.1 , in the normal range.. IMPRESSION: Normal bone mineral density.
== END ==
PROVIDERS: PCP Family Medicine; Visit Provider Family Medicine
DX: Z13.820 Encounter for screening for osteoporosis (principal); Z78.0 Asymptomatic menopausal state; E21.3 Hyperparathyroidism, unspecified
CPT/HCPCS: 77080

== ENCOUNTER 2023-08-07 10:52 | Outpatient (CLI) | payer OTHER, SELFPAY ==
[2023-08-07 17:35] LABS: Ionized Calcium 1.32 mmol/L (1.14-1.35)
== END 2023-08-07 10:53 | disposition home or self-care (01) ==
LOC: LBO 10:53
PROVIDERS: PCP Family Medicine; Visit Provider Family Medicine
DX: Z00.00 Encounter for general adult medical examination without abnormal findings (principal); E21.3 Hyperparathyroidism, unspecified; M35.3 Polymyalgia rheumatica; M79.18 Myalgia, other site
CPT/HCPCS: 36415; 82330

== ENCOUNTER 2023-09-28 19:31 | Outpatient (REF) | payer OTHER, SELFPAY ==
[2023-09-28 19:22] LABS: Abs Immature Grans 0.07 10^3/uL (0.0-0.06); Absolute Basophil Count 0.06 10^3/uL (0.0-0.2); Absolute Eosinophil Count 0.16 10^3/uL (0.0-0.7); Absolute Lymphocyte Count 2.47 10^3/uL (1.2-3.4); Absolute Monocyte Count 0.66 10^3/uL (0.1-0.8); Absolute Neutrophil Count 8.81 10^3/uL (1.2-6.7); Basophils % 0.5; Eosinophils % 1.3; HGB 12.9 g/dL (11.2-15.7); Immature Grans % 0.6; Lymphocytes % 20.2; MCH 26.1 pg (27.0-33.0); MCHC 31.5 % (32.0-36.0); MCV 83 fL (80-95); MPV 10.4 fL (8.0-11.0); Monocytes % 5.4; Platelet Count 279 10^3/uL (130-400); RBC 4.94 10^6/uL (3.93-5.22); RDW-SD 50.8 fL; WBC 12.23 10^3/uL (4.4-10.8)
[2023-09-28 19:27] LABS: ESR 32 mm/hr (0-30)
[2023-09-28 19:42] LABS: Calculated LDL 168 mg/dL (<100); Cholesterol 258 mg/dL (<200); HDL Cholesterol 56 mg/dL (40-60); Triglyceride 171 mg/dL (<150)
[2023-09-28 19:44] LABS: ALT 20 U/L (14-59); AST 18 U/L (15-37); Albumin 3.8 g/dL (3.4-5.0); Alkaline Phosphatase 116 U/L (46-116); Anion Gap 8.4 mmol/L (3-11); BUN 11 mg/dL (7-18); Bilirubin, Total 0.3 mg/dL (0.2-1.0); CO2 26.6 mmol/L (21.0-32.0); CREATININE 0.7 mg/dL (0.55-1.02); Calcium 10.9 mg/dL (8.5-10.1); Chloride 101 mmol/L (98-107); Estimated GFR 94.73 (mL/min/1.73m2); Glucose 112 mg/dL (74-106); Potassium 4.1 mmol/L (3.5-5.1); Sodium 136 mmol/L (136-145); TSH (W/Ref FT4) 0.51 uIU/mL (0.36-3.74); Total Protein 8.2 g/dL (6.4-8.2)
[2023-09-28 19:55] LABS: Hemoglobin A1C 5.9 % (<5.7)
[2023-10-01 10:56] LABS: Hepatitis B Surface Ag Negative (Negative)
[2023-10-01 11:19] LABS: Hepatitis C Ab w Rflx HCV PCR Negative (Negative)
[2023-10-01 11:37] LABS: HBs Antibody, Quant 5.4 mIU/mL (See Note); Hepatitis B Surface Ab Negative (See Note)
[2023-10-01 14:40] LABS: TB Interpretation Negative (Negative)
[2023-10-01 22:38] LABS: HBc IgM Ab, S Negative (Negative)
== END 2023-09-28 19:32 | disposition home or self-care (01) ==
LOC: LBO 19:31
PROVIDERS: Internal Medicine Rheumatology; PCP Family Medicine; Visit Provider Family Medicine
DX: M35.3 Polymyalgia rheumatica (principal); E11.9 Type 2 diabetes mellitus without complications; I48.0 Paroxysmal atrial fibrillation
CPT/HCPCS: 80053; 80061; 85652; 86704; 86706; 86803; 87340; 83036; 84443; 85025; 86140; 86480; 86705

== ENCOUNTER 2023-10-19 18:00 | Outpatient (REF) | payer OTHER, SELFPAY ==
[2023-10-19 18:59] LABS: Creatinine,Urine 46.76 mg/dL
[2023-10-19 19:00] LABS: Creatinine,24hr Ur 1.31 g/24hr (0.60-1.80); Total Volume 2800 ml
[2023-10-21 09:00] LABS: Calcium Urine 17.6 mg/dL (See Note); Calcium Urine 24 hr 493 mg/24hr (100-300); Timed Urine Volume 2800 mL
== END 2023-10-19 18:01 | disposition home or self-care (01) ==
LOC: LBN 18:00
PROVIDERS: PCP Family Medicine; Visit Provider Internal Medicine Endocrinology, Diabetes & Metabolism
DX: E21.3 Hyperparathyroidism, unspecified (principal); E03.8 Other specified hypothyroidism; E55.9 Vitamin D deficiency, unspecified; Z95.818 Presence of other cardiac implants and grafts
CPT/HCPCS: 81050; 82340; 82570

== ENCOUNTER 2023-12-14 12:30 | Outpatient (CLI) | payer OTHER, SELFPAY ==
[2023-12-14 12:48] LABS: Albumin 3.4 g/dL (3.4-5.0); Anion Gap 7.6 mmol/L (3-11); BUN 11 mg/dL (7-18); CO2 28.4 mmol/L (21.0-32.0); CREATININE 0.7 mg/dL (0.55-1.02); Calcium 10.2 mg/dL (8.5-10.1); Chloride 103 mmol/L (98-107); Estimated GFR 94.73 (mL/min/1.73m2); Glucose 133 mg/dL (74-106); PHOSPHORUS 3.6 mg/dL (2.6-4.7); Potassium 4.1 mmol/L (3.5-5.1); Sodium 139 mmol/L (136-145); TSH (W/Ref FT4) 2.15 uIU/mL (0.36-3.74)
[2023-12-14 13:02] LABS: Vitamin D 25 Total 24.5 ng/mL (30-100)
[2023-12-14 20:26] LABS: Parathyroid Hormone,Intact 79 pg/mL (19-88)
[2023-12-18 12:13] LABS: 1,25-Dihydroxyvitamin D 45 pg/mL (18-78)
== END 2023-12-14 12:31 | disposition home or self-care (01) ==
LOC: LBO 12:31
PROVIDERS: Surgery; PCP Family Medicine; Visit Provider Internal Medicine Endocrinology, Diabetes & Metabolism
DX: E21.0 Primary hyperparathyroidism (principal); E03.8 Other specified hypothyroidism; Z95.818 Presence of other cardiac implants and grafts; E55.9 Vitamin D deficiency, unspecified
CPT/HCPCS: 36415; 80069; 82306; 82310; 82652; 83970; 84443

== ENCOUNTER 2023-12-15 12:17 | Emergency (ER) | payer OTHER, SELFPAY ==
[2023-12-15] VITALS (12 sets, daily range): BP systolic 133–180; BP diastolic 71–95; PULSE 72–122; RESP 13–25; TEMP 36.6; O2SAT 97
--- NOTE | 2023-12-15 12:15 | RT.EKG_ITS ---
APPROVED REPORT Exam: Resting ECG Reason for Exam: heart palpitations Patient Location: E HR:96 bpm ECG Measurements Heart Rate 96 AXIS GA [id number] P [id number] QRSd 106 QRS 5 QT 350 T 38 QTc 442 Conclusion Atrial fibrillation...V-rate 78-118, irreg A-activity
--- NOTE | 2023-12-15 12:30 | DI.RAD_ITS ---
Exam(s) XR PORTABLE CHEST AP EXAM: XR PORTABLE CHEST AP CLINICAL HISTORY: palpitations TECHNIQUE: 2D digital imaging was performed. COMPARISON: CR CHEST 2 VIEWS PA,LAT from 01/20/2015 FINDINGS: Exam is limited by under penetration. LUNGS: Clear. No pleural abnormality seen. HEART: Normal size for projection. There is a linear metallic density likely reflecting left atrial appendage closure device.. AORTA: Normal diameter. BONES: Unremarkable for age. Soft tissues: Unremarkable. IMPRESSION: No acute findings. DATA REPOSITORY: RADIATION DOSE DELIVERED:
--- NOTE | 2023-12-15 12:34 | ED.GENADUL_ITS ---
HPI General Mode of arrival: ambulatory . Date/Time Provider Initiated Documentation: 12/15/23 12:17 . Limitations to Documentation: no limitations . Information obtained by: patient . History of Present Illness 68 year old F presents to the emergency department with the chief complaint of palpitations, described as moderate, Patient reports no radiation. Patient started experiencing this day(s) (1) and it has been constant. No relieving factors improve symptom(s), No exacerbating factors reported . Patient notes shortness of breath; denies chest pain, fever/chills and syncope. Patient did receive the following treatments prior to arrival, none Related Data Home Medications Medication Instructions Recorded Confirmed Lexapro 20 mg tablet (escitalopram 20 mg PO HS 04/25/13 12/15/23 oxalate) Nexium 20 mg capsule,delayed 40 mg PO HS 04/25/13 12/15/23 release (esomeprazole magnesium) levalbuterol tartrate 45 2 inh inhalation Q4H #15 grams 11/13/18 12/15/23 mcg/actuation aerosol inhaler alprazolam 0.25 mg tablet (Xanax) 0.25 mg PO PRN PRN 05/26/19 12/15/23 levothyroxine 125 mcg tablet 125 mcg PO HS 05/26/19 12/15/23 metoprolol succinate 25 mg 50 mg PO HS 05/26/19 12/15/23 tablet,extended release 24 hr sumatriptan succinate 25 mg tablet 25 mg PO ONCE #10 tabs 07/15/20 12/15/23 epinephrine 0.3 mg/0.3 mL 0.3 mg (0.3 mL) IM ONCE #2 ea 11/23/20 12/15/23 injection, auto-injector (EpiPen) clobetasol 0.05 % topical ointment 1 applic topical QHS #45 grams 02/08/22 12/15/23 ketoconazole 2 % topical cream 1 applic topical BID #60 grams 09/19/22 12/15/23 montelukast 10 mg tablet 10 mg PO DAILY 02/02/23 12/15/23 (Singulair) ondansetron 4 mg disintegrating 4 mg PO Q6H PRN #10 tabs 02/02/23 12/15/23 tablet apixaban 5 mg tablet (Eliquis) 5 mg PO BID #60 tabs 12/15/23 cholecalciferol (vitamin D3) 25 1,000 mcg PO DAILY 12/15/23 12/15/23 mcg (1,000 unit) tablet (Vitamin D3) Previous Rx's Medication Instructions Recorded levalbuterol tartrate 45 2 inh inhalation Q4H #15 grams 11/13/18 mcg/actuation aerosol inhaler sumatriptan succinate 25 mg tablet 25 mg PO ONCE #10 tabs 07/15/20 epinephrine 0.3 mg/0.3 mL 0.3 mg (0.3 mL) IM ONCE #2 ea 11/23/20 injection, auto-injector (EpiPen) clobetasol 0.05 % topical ointment 1 applic topical QHS #45 grams 02/08/22 ketoconazole 2 % topical cream 1 applic topical BID #60 grams 09/19/22 ondansetron 4 mg disintegrating 4 mg PO Q6H PRN #10 tabs 02/02/23 tablet apixaban 5 mg tablet (Eliquis) 5 mg PO BID #60 tabs 12/15/23 Allergies Allergy/AdvReac Type Severity Reaction Status Date / Time cefaclor [From Ceclor] Allergy Severe Anaphylaxsi Unverified 12/15/23 12:24 s Penicillins Allergy Severe Anaphylaxsi Unverified 12/15/23 12:24 s promethazine HCl Allergy Severe sulfite Unverified 12/15/23 12:24 [From Phenergan] will cause anaphylaxsis vancomycin Allergy Severe Hives Unverified 12/15/23 12:24 oxycodone HCl [From Percocet] Allergy Intermediate Hives, Unverified 12/15/23 12:24 Vomiting Sulfites Allergy Severe Anaphylaxsi Uncoded 12/15/23 12:24 s General Stated Complaint: Palpitatns TAMMIE: 3 Review of Systems All systems reviewed & are unremarkable except as noted in HPI and below Constitutional Constitutional: Denies chills, Denies fever(s) and Denies weakness Cardiovascular Cardiovascular: Denies chest pain and Reports dyspnea Respiratory Respiratory: Denies cough and Reports dyspnea Gastrointestinal Gastrointestinal: Denies abdominal pain, Denies nausea and Denies vomiting Neurologic Neurologic: Denies weakness Exam Const General: no acute distress Orientation: alert HENHI Head: normal to inspection Ears: external ears normal General nose exam: external nose normal Mouth: moist mucous membranes Eyes General: appearance normal, both eyes and all related structures Neck Neck: normal visual inspection Resp Effort & Inspection: normal respiratory effort and able to speak in complete sentences Auscultation: clear to auscultation bilaterally Cardio Jugular venous pressure: no JVD Rate: regular rate Heart Sounds: no murmurs Skin General skin exam: no rashes or lesions noted Neuro General: patient alert and patient oriented x3 Extrem General: normal to inspection, no calf tenderness bilaterally and no edema Psych Mental Status: mental status grossly normal Course Vital Signs Vital signs: Vital Signs Temperature 36.6 C 12/15/23 12:20 Pulse 122 H 12/15/23 12:20 Respiratory Rate 22 12/15/23 12:20 Blood Pressure 180/94 H 12/15/23 12:20 Pulse Oximetry 97 12/15/23 12:20 Temperature 36.6 C 12/15/23 12:20 Temperature Source Oral 12/15/23 12:20 Pulse 122 H 12/15/23 12:20 Respiratory Rate 22 12/15/23 12:20 Respiratory Effort Short of Breath 12/15/23 12:24 Blood Pressure 180/94 H 12/15/23 12:20 Pulse Oximetry 97 12/15/23 12:20 Oxygen Delivery Method Room Air 12/15/23 12:20 Oxygen Flow Rate 0 12/15/23 12:20 Medical Decision Making 68 yo female with hx of afib not on anticoagulation and has a loop recorder in place, comes in with sensation of her heart beating irregularly and some shortness of breath when walking around, denies any chest pain but yesterday did have neck pain. No fevers, chills. She is ambulating with a normal gait and is speaking in full sentences, no visible signs of respiratory distress. She is noted to be in afib with rates ranging from 100-130 during my exam, no leg swelling or calf tenderness. Suspect her symptoms are due to being in afib, will obtain ekg/troponin, cbc, cmp, and xray and give a dose of diltiazem. No hypoxia or evidence of dvt on exam so doubt PE. No tearing back pain to suggest dissection HR has been in the 70's and 80's, still in afib, feels well and stable bp. LAbs unremarkable and xray unremarkable. Given symptoms over 3 hours and no chest pain/pressure do not feel delta troponin indicated. Discussed with her that based on her [id number] score she should be on anticoagulation and she consents verbally to start oral apixaban. She has no history of fall sor other risks for being on anticoagulation. 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 She is stable for d/c, advised to f/u with pcp/cardiology within 1-2 weeks and return precautions given Differential Diagnosis Differential Diagnosis: afib, electrolyte abnormality, acs Medical Records Medical records reviewed: Yes I reviewed the patient's medical records. Imaging Data Radiologic Study: Attestation: I personally reviewed and interpreted this imaging study as follows: Imaging: X-Ray Radiologist's impression: no acute findings Lab Data Lab results reviewed: Yes I reviewed the patient's lab results. ECG Data Attestation: I personally reviewed and interpreted this ECG (s) as follows: Prior ECG tracings: available for review Interpretation: afib rate of 96 qtc 442 no stemi Quality:SDOH Health Related Social Needs: No Data to Display Critical Care Time Critical Care Time Critical Care Time: Yes Total Critical Care Time: 45 (minutes) Attestation: time spent administering iv diltiazem in a patient with afib with rvr and requiring hemodynamic monitoring with the potential to deteriorate at any time PFSH All Active Problems (Updated 12/15/23 @ 13:27 by Jason Floyd MD) Atrial fibrillation (Chronic) Palpitations (Acute) PMR (polymyalgia rheumatica) (Acute) Primary hyperparathyroidism (Acute) Encounter for monitoring immunosuppressive medication therapy causing immunodeficiency (Acute) Hematuria (Acute) High risk medications (not anticoagulants) long-term use (Acute) Dermatomyositis (Acute) Encounter for screening laboratory testing for COVID-19 virus (Acute) Cough (Acute) Atrophic vaginitis (Acute) Vulvar burning (Acute) 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) Depression (Chronic) Medical History (Updated 12/15/23 @ 13:27 by Jason Floyd MD) Serum calcium elevated Hx of iron deficiency anemia iron infusions (post menopausal bleeding) 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 Anxiety History of postoperative nausea and vomiting severe - treated successfully w/Ativan per Pt Hx of ectopic 1974 ruptured Primary osteoarthritis of right knee Deviated nasal septum (05/20/15) Chronic rhinitis (06/10/15) Anterior epistaxis (05/20/15) GERD (gastroesophageal reflux disease) Hypothyroidism Seasonal allergies Morbid obesity with BMI of 40.0-44.9, adult Influenza A with pneumonia (12/20/13) Surgical History (Updated 01/13/22 @ 11:31 by Luh Vazquez MD) History of total right knee replacement (TKR) History of arthroplasty of knee Left 2012 Hx of basal cell carcinoma excision History of esophagogastroduodenoscopy (EGD) History of colonoscopy History of tonsillectomy History of appendectomy Hx of cholecystectomy History of prior ablation treatment Uterine Hx of dilation and curettage Status post carpal tunnel release Right 2018. Left open carpal tunnel release 2019. Status post total knee replacement Left knee. Family History (Updated 05/26/19 @ 14:04 by Bethanie Syed RN) Other Diabetes FHx: allergies Family hx of ALS (amyotrophic lateral sclerosis) Social History Smoking/Tobacco Use Status: Former Tobacco Use Smoking risk assessment performed?: Yes Alcohol Intake: never Drug use: Never Substance use type: does not use Do you feel safe at home: Yes Do you feel safe in your relationship?: Yes Discharge Plan Disposition Patient Disposition: Home Condition: Stable Discharge Details Clinical Impression: Palpitations, Atrial fibrillation Primary Care Provider: Samantha Michelle V ED Provider: Jason Floyd Home Meds and New Rx's Prescriptions: New Eliquis 5 mg tablet 5 mg PO BID Qty: 60 0RF Continued clobetasol 0.05 % ointment 1 applic topical QHS Qty: 45 4RF Rx Instructions: applu to introitus, site of vulvar burning. esomeprazole magnesium [Nexium] 20 MG capsule,delayed release(DR/EC) 40 mg PO HS escitalopram oxalate [Lexapro] 20 MG tablet 20 mg PO HS levalbuterol tartrate 45 mcg/actuation HFA aerosol inhaler 2 inh IH Q4H Qty: 15 0RF Rx Instructions: Give 2 puffs every 4 hours PRN sumatriptan succinate 25 mg tablet 25 mg PO ONCE Qty: 10 0RF epinephrine [EpiPen] 0.3 mg/0.3 mL auto-injector 0.3 mg IM ONCE Qty: 2 1RF Rx Instructions: as a single dose ketoconazole 2 % cream 1 applic topical BID Qty: 60 1RF levothyroxine 125 MCG tablet 125 mcg PO HS metoprolol succinate 25 mg tablet extended release 24 hr 50 mg PO HS alprazolam [Xanax] 0.25 mg Tablet 0.25 mg PO PRN PRN Rx Instructions: 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 montelukast [Singulair] 10 mg Tablet 10 mg PO DAILY ondansetron 4 mg tablet,disintegrating 4 mg PO Q6H PRNQty: 10 0RF cholecalciferol (vitamin D3) [Vitamin D3] 25 mcg (1,000 unit) tablet 1,000 mcg PO DAILY Patient Comments: Take 1 tablet by mouth once a day Discharge Instructions Instructions: A-fib (Atrial Fibrillation) (ED) Additional Instructions: Your blood work and xray did not show concerning findings at this time. You are in atrial fibrillation but your rate is well controlled at this time follow up with your primary care provider or roofing sales representative within 1-2 weeks, they will need to continue the apixaban once the 30 day prescription is finished if you feel more ill, have severe chest pain or difficulty breathing return to the emergency department
[2023-12-15] MEDS: Normal Saline 250 ML 500 ML IV (12:46)
[2023-12-15] MEDS: dilTIAZem 25 MG/5 ML VIAL 10 MG IVP (12:46)
[2023-12-15 12:52] LABS: Abs Immature Grans 0.07 10^3/uL (0.0-0.06); Absolute Basophil Count 0.08 10^3/uL (0.0-0.2); Absolute Eosinophil Count 0.22 10^3/uL (0.0-0.7); Absolute Lymphocyte Count 2.23 10^3/uL (1.2-3.4); Absolute Monocyte Count 0.62 10^3/uL (0.1-0.8); Absolute Neutrophil Count 7.22 10^3/uL (1.2-6.7); Basophils % 0.8; Eosinophils % 2.1; Immature Grans % 0.7; Lymphocytes % 21.4; MCH 26.1 pg (27.0-33.0); MCHC 31.7 % (32.0-36.0); MCV 82 fL (80-95); MPV 9.6 fL (8.0-11.0); Monocytes % 5.9; Neutrophils % 69.1; Platelet Count 303 10^3/uL (130-400); RBC 4.99 10^6/uL (3.93-5.22); RDW 16.6 % (11.7-14.6); RDW-SD 49.7 fL; WBC 10.44 10^3/uL (4.4-10.8)
[2023-12-15 13:05] LABS: PTT Activated 30.3 sec (23.6-32.8); Prothrombin Time 10.4 sec (9.1-11.1)
[2023-12-15 13:10] LABS: ALT 15 U/L (14-59); AST 17 U/L (15-37); Albumin 3.1 g/dL (3.4-5.0); Alkaline Phosphatase 102 U/L (46-116); Anion Gap 9.2 mmol/L (3-11); BUN 11 mg/dL (7-18); Bilirubin, Total 0.4 mg/dL (0.2-1.0); CO2 25.8 mmol/L (21.0-32.0); CREATININE 0.9 mg/dL (0.55-1.02); Calcium 9.8 mg/dL (8.5-10.1); Chloride 104 mmol/L (98-107); Estimated GFR 70.07 (mL/min/1.73m2); Glucose 166 mg/dL (74-106); Potassium 3.9 mmol/L (3.5-5.1); Sodium 139 mmol/L (136-145); Total Protein 7.6 g/dL (6.4-8.2); Troponin I < 50 ng/L (< or =60)
--- NOTE | 2023-12-15 13:17 | DI.VRAD_ITS ---
PROCEDURE INFORMATION: Exam: XR Chest Exam date and time: 12/15/2023 1:02 PM Age: 68 years old Clinical indication: Other: Palpitations TECHNIQUE: Imaging protocol: Radiologic exam of the chest. Views: 1 view. COMPARISON: No relevant prior studies available. FINDINGS: Tubes, catheters and devices: Linear device projects over left heart, possibly left atrial appendage closure device or other superimposed density. Lungs: Nearly apical lordotic projection. No focal infiltrates seen of the lungs. Pleural spaces: No large or obvious pneumothorax nor pleural effusion seen. Heart/Mediastinum: Heart size appears within normal. Vasculature: Atherosclerotic disease aorta. Bones/joints: Degenerative changes spine. Other findings: Patient appears rotated slightly to the right. Shallow inspiration. IMPRESSION: No acute findings seen of the chest. Please see body of report. Dictated and Authenticated by: Ant Sanz MD. Ordering:ROGERIO Gomez MD
== END 2023-12-15 13:55 | disposition home or self-care (01) ==
LOC: ER 14:03
PROVIDERS: Emergency Provider Emergency Medicine; PCP Family Medicine
DX: I48.91 Unspecified atrial fibrillation (principal); E89.2 Postprocedural hypoparathyroidism; M35.3 Polymyalgia rheumatica; Z79.01 Long term (current) use of anticoagulants; Z87.891 Personal history of nicotine dependence
CPT/HCPCS: 80053; 93005; 96374; 99284; 71045; 83735; 84484; 85025; 85610; 85730; 93010

== ENCOUNTER 2024-02-18 07:25 | Emergency (ER) | payer OTHER, SELFPAY ==
[2024-02-18 07:28] VITALS: BP 140/60; PULSE 86; RESP 22; TEMP 36.8; O2SAT 94
--- NOTE | 2024-02-18 07:39 | ED.GENADUL_ITS ---
Discharge Plan Disposition Patient Disposition: Home Condition: Stable Discharge Details Clinical Impression: Community acquired pneumonia Primary Care Provider: Samantha Michelle V ED Provider: Jason Floyd Home Meds and New Rx's Prescriptions: New prednisone 20 mg tablet 60 mg PO DAILY 4 Days Qty: 12 0RF levofloxacin 750 mg tablet 750 mg PO DAILY Qty: 6 0RF Continued clobetasol 0.05 % ointment 1 applic topical QHS Qty: 45 4RF Rx Instructions: applu to introitus, site of vulvar burning. esomeprazole magnesium [Nexium] 20 MG capsule,delayed release(DR/EC) 40 mg PO HS escitalopram oxalate [Lexapro] 20 MG tablet 20 mg PO HS levalbuterol tartrate 45 mcg/actuation HFA aerosol inhaler 2 inh IH Q4H Qty: 15 0RF Rx Instructions: Give 2 puffs every 4 hours PRN sumatriptan succinate 25 mg tablet 25 mg PO ONCE Qty: 10 0RF epinephrine [EpiPen] 0.3 mg/0.3 mL auto-injector 0.3 mg IM ONCE Qty: 2 1RF Rx Instructions: as a single dose ketoconazole 2 % cream 1 applic topical BID Qty: 60 1RF levothyroxine 125 MCG tablet 125 mcg PO HS metoprolol succinate 25 mg tablet extended release 24 hr 75 mg PO HS alprazolam [Xanax] 0.25 mg Tablet 0.25 mg PO PRN PRN Rx Instructions: 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 montelukast [Singulair] 10 mg Tablet 10 mg PO DAILY ondansetron 4 mg tablet,disintegrating 4 mg PO Q6H PRNQty: 10 0RF cholecalciferol (vitamin D3) [Vitamin D3] 25 mcg (1,000 unit) tablet 1,000 mcg PO DAILY Patient Comments: Take 1 tablet by mouth once a day Eliquis 5 mg tablet 5 mg PO BID Qty: 60 0RF Rinvoq 15 mg tablet extended release 24 hr 15 mg PO DAILY Held prednisone 1 mg tablet 3 mg PO DAILY Hold Instructions: Resume on 02/23/24. Discharge Instructions Instructions: Community Acquired Pneumonia (ED) Additional Instructions: Your x-ray showed a small right upper lobe pneumonia. Your lab work was reassuring against sepsis or severe infection If not better within a week follow-up with your primary care provider If you feel more ill, have worsening shortness of breath or severe pain return to the emergency department for reevaluation HPI General Mode of arrival: ambulatory . Date/Time Provider Initiated Documentation: 02/18/24 07:28 . Limitations to Documentation: no limitations . Information obtained by: patient . History of Present Illness 68 year old F presents to the emergency department with the chief complaint of cough and wheezing, described as moderate, Patient started experiencing this day(s) (5) and it has been intermittent. No relieving factors improve symptom(s), No exacerbating factors reported . Patient notes fever/chills and shortness of breath; denies chest pain, nausea/vomiting and rash. Related Data Home Medications Medication Instructions Recorded Confirmed Lexapro 20 mg tablet (escitalopram 20 mg PO HS 04/25/13 02/18/24 oxalate) Nexium 20 mg capsule,delayed 40 mg PO HS 04/25/13 02/18/24 release (esomeprazole magnesium) levalbuterol tartrate 45 2 inh inhalation Q4H #15 grams 11/13/18 02/18/24 mcg/actuation aerosol inhaler alprazolam 0.25 mg tablet (Xanax) 0.25 mg PO PRN PRN 05/26/19 02/18/24 levothyroxine 125 mcg tablet 125 mcg PO HS 05/26/19 02/18/24 metoprolol succinate 25 mg 75 mg PO HS 05/26/19 02/18/24 tablet,extended release 24 hr sumatriptan succinate 25 mg tablet 25 mg PO ONCE #10 tabs 07/15/20 02/18/24 epinephrine 0.3 mg/0.3 mL 0.3 mg (0.3 mL) IM ONCE #2 ea 11/23/20 02/18/24 injection, auto-injector (EpiPen) clobetasol 0.05 % topical ointment 1 applic topical QHS #45 grams 02/08/22 02/18/24 ketoconazole 2 % topical cream 1 applic topical BID #60 grams 09/19/22 02/18/24 montelukast 10 mg tablet 10 mg PO DAILY 02/02/23 02/18/24 (Singulair) ondansetron 4 mg disintegrating 4 mg PO Q6H PRN #10 tabs 02/02/23 02/18/24 tablet apixaban 5 mg tablet (Eliquis) 5 mg PO BID #60 tabs 12/15/23 02/18/24 cholecalciferol (vitamin D3) 25 1,000 mcg PO DAILY 12/15/23 02/18/24 mcg (1,000 unit) tablet (Vitamin D3) levofloxacin 750 mg tablet 750 mg PO DAILY #6 tabs 02/18/24 prednisone 1 mg tablet 3 mg PO DAILY 02/18/24 02/18/24 prednisone 20 mg tablet 60 mg (3 x 20 mg) PO DAILY 4 days 02/18/24 #12 tabs upadacitinib 15 mg tablet,extended 15 mg PO DAILY 02/18/24 02/18/24 release 24 hr (Rinvoq) Previous Rx's Medication Instructions Recorded levalbuterol tartrate 45 2 inh inhalation Q4H #15 grams 11/13/18 mcg/actuation aerosol inhaler sumatriptan succinate 25 mg tablet 25 mg PO ONCE #10 tabs 07/15/20 epinephrine 0.3 mg/0.3 mL 0.3 mg (0.3 mL) IM ONCE #2 ea 11/23/20 injection, auto-injector (EpiPen) clobetasol 0.05 % topical ointment 1 applic topical QHS #45 grams 02/08/22 ketoconazole 2 % topical cream 1 applic topical BID #60 grams 09/19/22 ondansetron 4 mg disintegrating 4 mg PO Q6H PRN #10 tabs 02/02/23 tablet apixaban 5 mg tablet (Eliquis) 5 mg PO BID #60 tabs 12/15/23 levofloxacin 750 mg tablet 750 mg PO DAILY #6 tabs 02/18/24 prednisone 20 mg tablet 60 mg (3 x 20 mg) PO DAILY 4 days 02/18/24 #12 tabs Allergies Allergy/AdvReac Type Severity Reaction Status Date / Time cefaclor [From Ceclor] Allergy Severe Anaphylaxsi Unverified 02/18/24 07:32 s Penicillins Allergy Severe Anaphylaxsi Unverified 02/18/24 07:32 s promethazine HCl Allergy Severe sulfite Unverified 02/18/24 07:32 [From Phenergan] will cause anaphylaxsis vancomycin Allergy Severe Hives Unverified 02/18/24 07:32 oxycodone HCl [From Percocet] Allergy Intermediate Hives, Unverified 02/18/24 07:32 Vomiting Sulfites Allergy Severe Anaphylaxsi Uncoded 02/18/24 07:32 s General Stated Complaint: RespSymp TAMMIE: 3 Review of Systems All systems reviewed & are unremarkable except as noted in HPI and below Constitutional Constitutional: Reports fever(s) and Denies weakness Cardiovascular Cardiovascular: Denies chest pain and Reports dyspnea Respiratory Respiratory: Reports cough and Reports dyspnea Gastrointestinal Gastrointestinal: Denies abdominal pain, Denies nausea and Denies vomiting Musculoskeletal Musculoskeletal: Denies joint swelling Neurologic Neurologic: Denies weakness Psychiatric Psychiatric: Denies depression Exam Const General: no acute distress Orientation: alert HENMT Head: normal to inspection Ears: external ears normal General nose exam: external nose normal Mouth: moist mucous membranes Eyes General: appearance normal, both eyes and all related structures Neck Neck: normal visual inspection Resp Effort & Inspection: normal respiratory effort and able to speak in complete se ntences Auscultation: wheezes Cardio Jugular venous pressure: no JVD Rate: regular rate Heart Sounds: no murmurs Skin General skin exam: no rashes or lesions noted Neuro General: patient alert and patient oriented x3 Extrem General: normal to inspection Psych Mental Status: mental status grossly normal Course Vital Signs Vital signs: Vital Signs Temperature 36.8 C 02/18/24 07:28 Pulse 86 02/18/24 07:28 Respiratory Rate 22 02/18/24 07:28 Blood Pressure 140/60 02/18/24 07:28 Pulse Oximetry 94 02/18/24 07:28 Temperature 36.8 C 02/18/24 07:28 Temperature Source Oral 02/18/24 07:28 Pulse 86 02/18/24 07:28 Respiratory Rate 22 02/18/24 07:28 Respiratory Effort Non-Labored 02/18/24 07:34 Blood Pressure 140/60 02/18/24 07:28 Blood Pressure Position Sitting 02/18/24 07:28 Pulse Oximetry 94 02/18/24 07:28 Oxygen Delivery Method Room Air 02/18/24 07:28 Oxygen Flow Rate 0 02/18/24 07:28 Pain Level 3 02/18/24 07:28 Medical Decision Making 68-year-old female with a history of polymyalgia rheumatica on immune modulator s, A-fib on Eliquis, who comes in with 4 to 5 days of intermittent cough and wheezing, along with fevers intermittently to 100.6. Denies any severe headaches, throat pain, abdominal pain, vomiting. She is alert and oriented x 4 speaking clearly, on lung exam does have diffuse wheezing, no JVD, no significant leg swelling. History and exam are consistent with likely respiratory infection, will obtain CBC, CMP, procalcitonin, Fluvid, chest x-ray, and treat with DuoNeb and Solu-Medrol and reassess. Labs unremarkable, x-ray shows small right upper lobe pneumonia. Patient stable, room air saturation 95%, states she feels better after nebulizer, no longer has wheezing in the upper lobes mild wheezing in the lower lobes, discussed results with patient and given her reassuring lab work and stable vital signs after discussion with her we will start oral antibiotics and have her follow-up with her primary care provider, return precautions given. Given the stable vitals, no leukocytosis or elevated procalcitonin doubt sepsis at this time. Differential Diagnosis Differential Diagnosis: uri, covid, pneumonia Medical Records Medical records reviewed: Yes I reviewed the patient's medical records. Imaging Data Radiologic Study: Attestation: I personally reviewed and interpreted this imaging study as follows: Imaging: X-Ray Radiologist's impression: IMPRESSION: Small right upper lobe infiltrate. Lab Data Lab results reviewed: Yes I reviewed the patient's lab results. 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) Depression (Chronic) Medical History (Updated 02/18/24 @ 08:58 by Jason Floyd MD) Serum calcium elevated Hx of iron deficiency anemia iron infusions (post menopausal bleeding) 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 Anxiety History of postoperative nausea and vomiting severe - treated successfully w/Ativan per Pt Hx of ectopic 1974 ruptured Primary osteoarthritis of right knee Deviated nasal septum (05/20/15) Chronic rhinitis (06/10/15) Anterior epistaxis (05/20/15) GERD (gastroesophageal reflux disease) Hypothyroidism Seasonal allergies Morbid obesity with BMI of 40.0-44.9, adult Influenza A with pneumonia (12/20/13) Surgical History (Updated 01/13/22 @ 11:31 by Luh Vazquez MD) History of total right knee replacement (TKR) History of arthroplasty of knee Left 2012 Hx of basal cell carcinoma excision History of esophagogastroduodenoscopy (EGD) History of colonoscopy History of tonsillectomy History of appendectomy Hx of cholecystectomy History of prior ablation treatment Uterine Hx of dilation and curettage Status post carpal tunnel release Right 2018. Left open carpal tunnel release 2019. Status post total knee replacement Left knee. Family History (Updated 05/26/19 @ 14:04 by Bethanie Syed RN) Other Diabetes FHx: allergies Family hx of ALS (amyotrophic lateral sclerosis) Social History Smoking/Tobacco Use Status: Former Tobacco Use Smoking risk assessment performed?: Yes Alcohol Intake: never Drug use: Never Substance use type: does not use Do you feel safe at home: Yes Do you feel safe in your relationship?: Yes
[2024-02-18] MEDS: Levalbuterol 1.25 MG/3 ML UPD VIAL UPD (07:45)
[2024-02-18] MEDS: methylPREDNISolone SUCC 125 MG VIAL IVP (07:48)
[2024-02-18] MEDS: Normal Saline 1,000 ML 1000 ML IV (07:55)
[2024-02-18] MEDS: Normal Saline Flush 10 ML SYR IVP (08:01)
[2024-02-18 08:03] LABS: Abs Immature Grans 0.05 10^3/uL (0.0-0.06); Absolute Basophil Count 0.03 10^3/uL (0.0-0.2); Absolute Monocyte Count 0.76 10^3/uL (0.1-0.8); Absolute Neutrophil Count 6.15 10^3/uL (1.2-6.7); Basophils % 0.4; Eosinophils % 2.5; HCT 40.2 % (36.0-46.0); HGB 12.6 g/dL (11.2-15.7); Immature Grans % 0.6; Lymphocytes % 8.9; MCH 26.2 pg (27.0-33.0); MCHC 31.3 % (32.0-36.0); MCV 84 fL (80-95); Monocytes % 9.6; Platelet Count 217 10^3/uL (130-400); RBC 4.81 10^6/uL (3.93-5.22); RDW-SD 51.3 fL; WBC 7.89 10^3/uL (4.4-10.8)
[2024-02-18 08:17] LABS: ALT 18 U/L (14-59); AST 23 U/L (15-37); Albumin 3.4 g/dL (3.4-5.0); Alkaline Phosphatase 110 U/L (46-116); Anion Gap 8.9 mmol/L (3-11); BUN 11 mg/dL (7-18); Bilirubin, Total 0.6 mg/dL (0.2-1.0); CO2 28.1 mmol/L (21.0-32.0); CREATININE 0.9 mg/dL (0.55-1.02); Calcium 9.3 mg/dL (8.5-10.1); Chloride 104 mmol/L (98-107); Estimated GFR 70.07 (mL/min/1.73m2); Glucose 141 mg/dL (74-106); Magnesium 2.2 mg/dL (1.8-2.4); Potassium 4.2 mmol/L (3.5-5.1); Sodium 141 mmol/L (136-145); Total Protein 7.9 g/dL (6.4-8.2)
[2024-02-18 08:21] LABS: PTT Activated 30.8 sec (23.6-32.8); Prothrombin Time 10.3 sec (9.1-11.1)
[2024-02-18 08:27] LABS: Bilirubin Negative (Negative); Blood Negative (Negative); Clarity Sl Cloudy (Clear); Glucose Negative (Negative); Ketones Negative (Negative); Leukocyte Esterase Negative (Negative); Nitrite Negative (Negative); Specific Gravity >= 1.030 (1.005-1.025); Urobilinogen 0.2 mg/dL (Up to 0.2)
[2024-02-18 08:38] LABS: Bacteria Rare HPF (Negative); C & S Indicated? No; Casts 0-2 Hyaline LPF (Negative); Crystals Negative HPF (Negative); Epithelial Cells Moderate HPF (Negative); Mucus Trace (Negative); RBC Negative HPF (0-2)
[2024-02-18 08:45] LABS: COVID-19 PCR Negative (Negative); Influenza A PCR Negative (Negative); Influenza B PCR Negative (Negative); RSV PCR Negative (Negative)
--- NOTE | 2024-02-18 08:45 | DI.RAD_ITS ---
Exam(s) XR CHEST 2V PA LATERAL EXAM: XR CHEST 2V PA LATERAL CLINICAL HISTORY: cough TECHNIQUE: 2D digital imaging was performed. Two views. COMPARISON: CR,XR XR PORTABLE CHEST AP from 12/15/2023 FINDINGS: HEART: Normal size. Aorta: Not dilated. PULMONARY VASCULATURE: Normal. LUNGS: Small patchy infiltrate in the right upper lobe. Remainder of the lung worrell are clear. PLEURAL SPACE: No pleural effusion or pneumothorax. BONE:Unremarkable for age. Soft tissues: Loop recorder device. IMPRESSION: Small right upper lobe infiltrate. DATA REPOSITORY: RADIATION DOSE DELIVERED:
[2024-02-18 08:47] LABS: Source Nasopharynx
[2024-02-18 08:48] LABS: Procalcitonin 0.2 ng/mL
[2024-02-18] MEDS: levoFLOXacin 500 MG, levoFLOXacin 250 MG 750 MG PO (09:06)
== END 2024-02-18 09:15 | disposition home or self-care (01) ==
PROVIDERS: Emergency Provider Emergency Medicine; PCP Family Medicine
DX: J18.9 Pneumonia, unspecified organism (principal); M35.3 Polymyalgia rheumatica; I48.91 Unspecified atrial fibrillation; Z11.52 Encounter for screening for COVID-19; Z79.01 Long term (current) use of anticoagulants
CPT/HCPCS: 80053; 84145; 87637; 96361; 96374; 99285; 71046; 81003; 81015; 83735; 85025; 85610; 85730; 99284; J2930; J7614

== ENCOUNTER 2024-02-21 07:59 | Outpatient (CLI) | payer OTHER, SELFPAY ==
[2024-02-21 08:22] LABS: ESR 25 mm/hr (0-30)
[2024-02-21 08:56] LABS: Anion Gap 5.7 mmol/L (3-11); BUN 15 mg/dL (7-18); CO2 29.3 mmol/L (21.0-32.0); CREATININE 0.8 mg/dL (0.55-1.02); Calcium 9.5 mg/dL (8.5-10.1); Calculated LDL 91 mg/dL (<100); Chloride 106 mmol/L (98-107); Cholesterol 169 mg/dL (<200); Estimated GFR 80.71 (mL/min/1.73m2); Glucose 113 mg/dL (74-106); HDL Cholesterol 49 mg/dL (40-60); Potassium 3.8 mmol/L (3.5-5.1); Sodium 141 mmol/L (136-145); Triglyceride 146 mg/dL (<150)
[2024-02-21 09:08] LABS: C-Reactive Protein 1.22 mg/dL (<or=0.5); Creatine Kinase 41 U/L (26-192)
[2024-02-21 10:18] LABS: Vitamin D 25 Total 31.8 ng/mL (30-100)
[2024-02-21 17:50] LABS: Parathyroid Hormone,Intact 58 pg/mL (19-88)
== END 2024-02-21 08:00 | disposition home or self-care (01) ==
LOC: LBO 07:59
PROVIDERS: PCP Family Medicine; Visit Provider Dermatology
DX: M35.3 Polymyalgia rheumatica (principal)
CPT/HCPCS: 36415; 80048; 80061; 82306; 82550; 85652; 83970; 86140

== ENCOUNTER → 2024-05-08 11:37 | Outpatient (CLI) | payer OTHER, SELFPAY ==
--- NOTE | 2024-05-08 | DI.RAD_ITS ---
Exam(s) XR HAND LT COMPLETE EXAM: XR HAND LT COMPLETE CLINICAL HISTORY: BILAT HAND SWELLING,R22.33. TECHNIQUE: 2D digital imaging was performed of the left hand. Three views were obtained. AP, later al and oblique views were obtained. COMPARISON: No exams were available for comparison FINDINGS: BONES: No acute fracture is present. No bony destructive lesion is seen. JOINTS: No dislocation present. Marked degenerative changes are seen in the hand and wrist characteri zed by joint space narrowing and osteophytes. The findings are most marked at the 1st CMC joint. No erosions are seen. SOFT TISSUE: Normal. IMPRESSION: Osteoarthritis of the left hand. DATA REPOSITORY: RADIATION DOSE DELIVERED:
--- NOTE | 2024-05-08 | DI.RAD_ITS ---
Exam(s) XR HAND RT COMPLETE EXAM: XR HAND RT COMPLETE CLINICAL HISTORY: SWELLING BOTH HANDS, R22.33. TECHNIQUE: 2D digital imaging was performed of the right hand. Three images were obtained. AP, late ral and oblique views were obtained. COMPARISON: No exams were available for comparison FINDINGS: BONES: No acute fracture is present. No bony destructive lesion is seen. JOINTS: No dislocation present. There are degenerative changes seen in the hand and wrist characteriz ed by joint space narrowing and osteophytes. The findings are marked at the 1st CMC joint and modera tely severe at the interphalangeal joints of the fingers. No erosions are present. SOFT TISSUE: Soft tissue calcification is seen adjacent to the trapezium bone. IMPRESSION: Osteoarthritis of the hand. DATA REPOSITORY: RADIATION DOSE DELIVERED:
== END ==
PROVIDERS: PCP Family Medicine; Visit Provider Family Medicine
DX: R22.33 Localized swelling, mass and lump, upper limb, bilateral (principal)
CPT/HCPCS: 73130

== ENCOUNTER 2024-06-16 06:54 | Emergency (ER) | payer OTHER, SELFPAY ==
[2024-06-16] VITALS (17 sets, daily range): BP systolic 149–165; BP diastolic 70–128; PULSE 89–102; RESP 13–33; TEMP 36.4–37.7; O2SAT 93–95
--- NOTE | 2024-06-16 07:15 | ED.GENADUL_ITS ---
Discharge Plan Disposition Patient Disposition: Home Condition: Stable Discharge Details Clinical Impression: Cough, Body aches, COVID Primary Care Provider: Samantha Michelle V ED Provider: Jason Floyd Home Meds and New Rx's Prescriptions: Continued clobetasol 0.05 % ointment 1 applic topical QHS Qty: 45 4RF Rx Instructions: applu to introitus, site of vulvar burning. esomeprazole magnesium [Nexium] 20 MG capsule,delayed release(DR/EC) 40 mg PO HS escitalopram oxalate [Lexapro] 20 MG tablet 20 mg PO HS levalbuterol tartrate 45 mcg/actuation HFA aerosol inhaler 2 inh IH Q4H Qty: 15 0RF Rx Instructions: Give 2 puffs every 4 hours PRN epinephrine [EpiPen] 0.3 mg/0.3 mL auto-injector 0.3 mg IM ONCE Qty: 2 1RF Rx Instructions: as a single dose ketoconazole 2 % cream 1 applic topical BID Qty: 60 1RF Olumiant 2 mg tablet 2 mg PO DAILY levothyroxine 125 MCG tablet 125 mcg PO HS metoprolol succinate 25 mg tablet extended release 24 hr 75 mg PO HS alprazolam [Xanax] 0.25 mg Tablet 0.25 mg PO PRN PRN Rx Instructions: 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 montelukast [Singulair] 10 mg Tablet 10 mg PO DAILY ondansetron 4 mg tablet,disintegrating 4 mg PO Q6H PRNQty: 10 0RF cholecalciferol (vitamin D3) [Vitamin D3] 25 mcg (1,000 unit) tablet 1,000 mcg PO DAILY Patient Comments: Take 1 tablet by mouth once a day Eliquis 5 mg tablet 5 mg PO BID Qty: 60 0RF prednisone 1 mg tablet 3 mg PO DAILY levalbuterol tartrate 45 mcg/actuation HFA aerosol inhaler 2 inh inhalation Q6H Qty: 15 0RF Discharge Instructions Additional Instructions: You tested positive for COVID, the rest your blood work and x-ray did not show concerning findings Due to being on Eliquis is not recommended to take Paxlovid so you are given IV remdesivir. He will require a dose tomorrow and also Sunday. The infusion room advised they are unable to administer the study well to come back to the emergency department tomorrow and Sunday. If you develop severe worsening shortness of breath, feel significantly more ill return to the emergency department for reevaluation. HPI General Mode of arrival: ambulatory . Date/Time Provider Initiated Documentation: 06/16/24 06:57 . Limitations to Documentation: no limitations . Information obtained by: patient . History of Present Illness 69 year old F presents to the emergency department with the chief complaint of cough, body aches, chills, Patient started experiencing this day(s) (5) and it has been constant. No relieving factors improve symptom(s), No exacerbating factors reported . Patient notes denies chest pain and rash. Related Data Home Medications ?Medication ?Instructions ?Recorded ?Confirmed Lexapro 20 mg tablet (escitalopram 20 mg PO HS 04/25/13 06/16/24 oxalate) Nexium 20 mg capsule,delayed 40 mg PO HS 04/25/13 06/16/24 release (esomeprazole magnesium) levalbuterol tartrate 45 2 inh inhalation Q4H #15 grams 11/13/18 06/16/24 mcg/actuation aerosol inhaler alprazolam 0.25 mg tablet (Xanax) 0.25 mg PO PRN PRN 05/26/19 06/16/24 levothyroxine 125 mcg tablet 125 mcg PO HS 05/26/19 06/16/24 metoprolol succinate 25 mg 75 mg PO HS 05/26/19 06/16/24 tablet,extended release 24 hr epinephrine 0.3 mg/0.3 mL 0.3 mg (0.3 mL) IM ONCE #2 ea 11/23/20 06/16/24 injection, auto-injector (EpiPen) clobetasol 0.05 % topical ointment 1 applic topical QHS #45 grams 02/08/22 06/16/24 ketoconazole 2 % topical cream 1 applic topical BID #60 grams 09/19/22 06/16/24 montelukast 10 mg tablet 10 mg PO DAILY 02/02/23 06/16/24 (Singulair) ondansetron 4 mg disintegrating 4 mg PO Q6H PRN #10 tabs 02/02/23 06/16/24 tablet apixaban 5 mg tablet (Eliquis) 5 mg PO BID #60 tabs 12/15/23 06/16/24 cholecalciferol (vitamin D3) 25 1,000 mcg PO DAILY 12/15/23 06/16/24 mcg (1,000 unit) tablet (Vitamin D3) levalbuterol tartrate 45 2 inh inhalation Q6H #15 grams 02/18/24 06/16/24 mcg/actuation aerosol inhaler prednisone 1 mg tablet 3 mg PO DAILY 02/18/24 06/16/24 baricitinib 2 mg tablet (Olumiant) 2 mg PO DAILY 06/16/24 06/16/24 Previous Rx's ?Medication ?Instructions ?Recorded levalbuterol tartrate 45 2 inh inhalation Q4H #15 grams 11/13/18 mcg/actuation aerosol inhaler epinephrine 0.3 mg/0.3 mL 0.3 mg (0.3 mL) IM ONCE #2 ea 11/23/20 injection, auto-injector (EpiPen) clobetasol 0.05 % topical ointment 1 applic topical QHS #45 grams 02/08/22 ketoconazole 2 % topical cream 1 applic topical BID #60 grams 09/19/22 ondansetron 4 mg disintegrating 4 mg PO Q6H PRN #10 tabs 02/02/23 tablet apixaban 5 mg tablet (Eliquis) 5 mg PO BID #60 tabs 12/15/23 levalbuterol tartrate 45 2 inh inhalation Q6H #15 grams 02/18/24 mcg/actuation aerosol inhaler Allergies Allergy/AdvReac Type Severity Reaction Status Date / Time cefaclor (From Ceclor) Allergy Severe Anaphylaxsi Unverified 06/16/24 06:58 s Penicillins Allergy Severe Anaphylaxsi Unverified 06/16/24 06:58 s promethazine HCl (From Allergy Severe sulfite Unverified 06/16/24 06:58 Phenergan) will cause anaphylaxsis vancomycin Allergy Severe Hives Unverified 06/16/24 06:58 oxycodone HCl (From Percocet) Allergy Intermediate Hives, Unverified 06/16/24 06:58 Vomiting Sulfites Allergy Severe Anaphylaxsi Uncoded 06/16/24 06:58 s General Stated Complaint: RespSymp TAMMIE: 3 Review of Systems All systems reviewed & are unremarkable except as noted in HPI and below Constitutional Constitutional: Reports chills and Denies fever(s) Cardiovascular Cardiovascular: Denies chest pain Respiratory Respiratory: Reports chest congestion and Reports cough Gastrointestinal Gastrointestinal: Denies abdominal pain, Reports nausea and Denies vomiting Integumentary/Breasts Skin/Breast: Denies rash Exam Const General: no acute distress Orientation: alert [facility] Head: normal to inspection Ears: external ears normal General nose exam: external nose normal Mouth: moist mucous membranes, no muffled voice and no trismus Eyes General: appearance normal, both eyes and all related structures Neck Neck: normal visual inspection Resp Effort & Inspection: normal respiratory effort and able to speak in complete sentences Auscultation: wheezes Cardio Jugular venous pressure: no JVD Rate: regular rate GI Palpation: soft and nontender Skin General skin exam: no rashes or lesions noted Neuro General: patient alert and patient oriented x3 Extrem General: normal to inspection Psych Mental Status: mental status grossly normal Course Vital Signs Vital signs: Vital Signs Temperature 36.4 C L 06/16/24 07:01 Pulse 96 H 06/16/24 07:01 Respiratory Rate 18 06/16/24 07:01 Blood Pressure 165/75 H 06/16/24 07:01 Pulse Oximetry 94 06/16/24 07:01 Temperature 36.4 C L 06/16/24 07:03 Temperature Source Temporal Artery Scan 06/16/24 07:03 Pulse 96 H 06/16/24 07:03 Pulse 96 H 06/16/24 07:10 Respiratory Rate 13 06/16/24 07:10 Respiratory Effort Normal, Non-Labored 06/16/24 07:07 Respiratory Depth Normal 06/16/24 07:07 Blood Pressure 165/75 H 06/16/24 07:03 Blood Pressure Position Sitting 06/16/24 07:03 Pulse Oximetry 95 06/16/24 07:10 Oxygen Delivery Method Room Air 06/16/24 07:03 Oxygen Flow Rate 0 06/16/24 07:01 Pain Level 8 06/16/24 07:03 Comment Ibu last night 06/16/24 07:01 Medical Decision Making 69-year-old female with a 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 Had similar symptoms in the past and was diagnosed with COVID and also pneumonia. She denies any high fevers, chest pain, vomiting though she has had some nausea. She arrives hemodynamically stable appears mildly fatigued. Her posterior pharynx is mildly erythematous without exudates, midline uvula, no submandibular swelling. She has no stridor or drooling. She has wheezing at the apices bilaterally otherwise clear lung sounds. Soft nontender abdomen. Her symptoms do sound consistent with a respiratory illness, will check a Fluvid, CBC, CMP, procalcitonin and chest x-ray and reassess. Will treat her symptoms with a dose of Decadron and use levalbuterol as she says she tolerates this better than the regular albuterol. Blood work unremarkable, she is positive for COVID. X-ray unremarkable. She is not requiring oxygen. Discussed with her and given her age and the fact that she is on immunosuppressants she should receive treatment unfortunately Paxlovid interacts with her Eliquis and according to the up-to-date pathway for treatment of COVID-19 they would recommend remdesivir. Will give a 200mg IV dose here then will need a 100mg dose tomorrow and sunday. Discussed with her and do not feel she is ill enough to require hospitalization. Will try to see if it can be arranged to have her go to infusion room for her next two doses. If not will have to have her come back to the ED. She understands this and also understands to return to the emergency department for any worsening symptoms Infusion room so they are unable to administer remdesivir, patient will have to come back here tomorrow and Sunday for her subsequent doses of 100mg IV remdesivir. Differential Diagnosis Differential Diagnosis: COVID, flu, pneumonia Medical Records Medical records reviewed: Yes I reviewed the patient's medical records. Imaging Data Radiologic Study: Attestation: I personally reviewed and interpreted this imaging study as follows: Imaging: X-Ray Radiologist's impression: Patient Name: Brandi Ruiz Unit #: [id number] Loc: ER Ordering Provider: Jason Floyd M.D. Status: [facility] Primary Care Provider: Samantha Michelle M.D. Date of Exam: 06/16/24 Sex: F Admission Date: 06/16/24 : 1955 Age: 69 Exam(s) XR CHEST 2V PA LATERAL EXAM: XR CHEST 2V PA LATERAL CLINICAL HISTORY: cough TECHNIQUE: 2D digital imaging was performed of the chest. Two images were obtained. PA and lateral views were obtained. COMPARISON: CR XR CHEST 2V PA LATERAL from 02/18/2024 FINDINGS: MEDIASTINUM: Normal. HEART: Normal. PULMONARY VASCULATURE: Normal. LUNGS: No focal consolidating infiltrates. PLEURAL SPACE: No pleural effusion or pneumothorax. BONE:Within normal limits for the patient's age. OTHER FINDINGS:A loop recorder device is again seen. IMPRESSION: No acute pulmonary findings. Lab Data Lab results reviewed: Yes I reviewed the patient's lab results. Quality:SDOH Health Related Social Needs: No Data to Display PFSH All Active Problems (Updated 06/16/24 @ 08:24 by Jason Floyd MD) COVID (Acute) Body aches (Acute) Cough (Acute) PMR (polymyalgia rheumatica) (Acute) Primary hyperparathyroidism (Acute) Encounter for monitoring immunosuppressive medication therapy causing immunodeficiency (Acute) Hematuria (Acute) High risk medications (not anticoagulants) long-term use (Acute) Dermatomyositis (Acute) Encounter for screening laboratory testing for COVID-19 virus (Acute) Cough (Acute) Atrophic vaginitis (Acute) Vulvar burning (Acute) 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) Depression (Chronic) Medical History (Updated 06/16/24 @ 08:24 by Jason Floyd MD) Serum calcium elevated Hx of iron deficiency anemia iron infusions (post menopausal bleeding) 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 Anxiety History of postoperative nausea and vomiting severe - treated successfully w/Ativan per Pt Hx of ectopic 1974 ruptured Primary osteoarthritis of right knee Deviated nasal septum (05/20/15) Chronic rhinitis (06/10/15) Anterior epistaxis (05/20/15) GERD (gastroesophageal reflux disease) Hypothyroidism Seasonal allergies Morbid obesity with BMI of 40.0-44.9, adult Influenza A with pneumonia (12/20/13) Surgical History (Updated 01/13/22 @ 11:31 by Luh Vazquez MD) History of total right knee replacement (TKR) History of arthroplasty of knee Left 2011 Hx of basal cell carcinoma excision History of esophagogastroduodenoscopy (EGD) History of colonoscopy History of tonsillectomy History of appendectomy Hx of cholecystectomy History of prior ablation treatment Uterine Hx of dilation and curettage Status post carpal tunnel release Right 2018. Left open carpal tunnel release 2019. Status post total knee replacement Left knee. Family History (Updated 05/26/19 @ 14:04 by Bethanie Syed RN) Other Diabetes FHx: allergies Family hx of ALS (amyotrophic lateral sclerosis) Social History Smoking/Tobacco Use Status: Former Tobacco Use Smoking risk assessment performed?: Yes Alcohol Intake: never Drug use: Never Substance use type: does not use Housing: house Do you feel safe at home: Yes Do you feel safe in your relationship?: Yes
[2024-06-16 07:33] LABS: Abs Immature Grans 0.07 10^3/uL (0.0-0.06); Absolute Basophil Count 0.04 10^3/uL (0.0-0.2); Absolute Eosinophil Count 0.15 10^3/uL (0.0-0.7); Absolute Lymphocyte Count 0.63 10^3/uL (1.2-3.4); Absolute Monocyte Count 0.87 10^3/uL (0.1-0.8); Absolute Neutrophil Count 8.75 10^3/uL (1.2-6.7); BE (Venous) 2 mmol/L (-2-3); Basophils % 0.4 %; Eosinophils % 1.4 %; HCO3 (Venous) 27 mmol/L (23-28); HCT 38.2 % (36.0-46.0); Immature Grans % 0.7 %; MCH 24.8 pg (27.0-33.0); MCHC 31.4 % (32.0-36.0); MCV 79 fL (80-95); MPV 9.9 fL (8.0-11.0); Monocytes % 8.3 %; Neutrophils % 83.2 %; O2 Sat (Venous) 72 %; Platelet Count 222 10^3/uL (130-400); RBC 4.83 10^6/uL (3.93-5.22); RDW 17.2 % (11.7-14.6); RDW-SD 49.3 fL; TCO2 (Venous) 25 mmol/L (24-29); WBC 10.51 10^3/uL (4.4-10.8); pCO2 (Venous) 45 mmHg (41-51); pH (Venous) 7.39 (7.31-7.41); pO2 (Venous) 39 mmHg
[2024-06-16] MEDS: Dexamethasone 10 MG/ML VIAL IVP (07:36)
[2024-06-16] MEDS: Levalbuterol 1.25 MG/3 ML UPD VIAL UPD (07:36)
[2024-06-16] MEDS: Normal Saline 1,000 ML 1000 ML IV (07:37)
[2024-06-16 07:50] LABS: PTT Activated 33.8 sec (23.6-32.8); Prothrombin Time 10.5 sec (9.1-11.1)
--- NOTE | 2024-06-16 07:52 | DI.RAD_ITS ---
Exam(s) XR CHEST 2V PA LATERAL EXAM: XR CHEST 2V PA LATERAL CLINICAL HISTORY: cough TECHNIQUE: 2D digital imaging was performed of the chest. Two images were obtained. PA and lateral views were obtained. COMPARISON: CR XR CHEST 2V PA LATERAL from 02/18/2024 FINDINGS: MEDIASTINUM: Normal. HEART: Normal. PULMONARY VASCULATURE: Normal. LUNGS: No focal consolidating infiltrates. PLEURAL SPACE: No pleural effusion or pneumothorax. BONE:Within normal limits for the patient's age. OTHER FINDINGS:A loop recorder device is again seen. IMPRESSION: No acute pulmonary findings. DATA REPOSITORY: RADIATION DOSE DELIVERED:
[2024-06-16 08:01] LABS: ALT 20 U/L (14-59); AST 25 U/L (15-37); Albumin 3.3 g/dL (3.4-5.0); Alkaline Phosphatase 113 U/L (46-116); Anion Gap 8.9 mmol/L (3-11); BUN 8 mg/dL (7-18); Bilirubin, Total 0.43 mg/dL (0.2-1.0); CO2 28.1 mmol/L (21.0-32.0); CREATININE 0.8 mg/dL (0.55-1.02); Calcium 9.3 mg/dL (8.5-10.1); Chloride 100 mmol/L (98-107); Estimated GFR 80.21 (mL/min/1.73m2); Glucose 147 mg/dL (74-106); Magnesium 1.9 mg/dL (1.8-2.4); Potassium 4.2 mmol/L (3.5-5.1); Sodium 137 mmol/L (136-145); TSH (W/Ref FT4) 1.86 uIU/mL (0.36-3.74)
[2024-06-16 08:05] LABS: Influenza A PCR Negative (Negative); Influenza B PCR Negative (Negative); RSV PCR Negative (Negative)
[2024-06-16 08:07] LABS: COVID-19 PCR Positive (Negative); Source Nasopharynx
[2024-06-16 08:10] LABS: Procalcitonin 0.2 ng/mL
[2024-06-16] MEDS: REMDESIVIR 200 MG in Normal Saline 250 ML 250 MG IVPB (08:46)
== END 2024-06-16 10:12 | disposition home or self-care (01) ==
PROVIDERS: Emergency Provider Emergency Medicine; PCP Family Medicine
DX: U07.1 COVID-19 (principal); R07.0 Pain in throat; R05.1 Acute cough; R52 Pain, unspecified; R50.9 Fever, unspecified; R11.0 Nausea; Z11.52 Encounter for screening for COVID-19; D84.821 Immunodeficiency due to drugs
CPT/HCPCS: 36415; 80053; 82805; 84145; 87637; 94640; 96361; 96374; 99284; 71046; 83735; 84443; 85025; 85610; 85730; 99283; J0248; J1100; J7614

== ENCOUNTER 2024-06-17 08:53 | Emergency (ER) | payer OTHER, SELFPAY ==
[2024-06-17 09:00] VITALS: BP 128/64; PULSE 62; RESP 16; TEMP 36.1; O2SAT 96
--- NOTE | 2024-06-17 09:06 | ED.GENADUL_ITS ---
Discharge Plan Disposition Patient Disposition: Home Condition: Stable Discharge Details Clinical Impression: Encounter for medication administration, COVID Primary Care Provider: Samantha Michelle V ED Provider: Merle Mckinnon Home Meds and New Rx's Prescriptions: Continued clobetasol 0.05 % ointment 1 applic topical QHS Qty: 45 4RF Rx Instructions: applu to introitus, site of vulvar burning. esomeprazole magnesium [Nexium] 20 MG capsule,delayed release(DR/EC) 40 mg PO HS escitalopram oxalate [Lexapro] 20 MG tablet 20 mg PO HS levalbuterol tartrate 45 mcg/actuation HFA aerosol inhaler 2 inh IH Q4H Qty: 15 0RF Rx Instructions: Give 2 puffs every 4 hours PRN epinephrine [EpiPen] 0.3 mg/0.3 mL auto-injector 0.3 mg IM ONCE Qty: 2 1RF Rx Instructions: as a single dose ketoconazole 2 % cream 1 applic topical BID Qty: 60 1RF Olumiant 2 mg tablet 2 mg PO DAILY levothyroxine 125 MCG tablet 125 mcg PO HS metoprolol succinate 25 mg tablet extended release 24 hr 75 mg PO HS alprazolam [Xanax] 0.25 mg Tablet 0.25 mg PO PRN PRN Rx Instructions: 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 montelukast [Singulair] 10 mg Tablet 10 mg PO DAILY ondansetron 4 mg tablet,disintegrating 4 mg PO Q6H PRNQty: 10 0RF cholecalciferol (vitamin D3) [Vitamin D3] 25 mcg (1,000 unit) tablet 1,000 mcg PO DAILY Patient Comments: Take 1 tablet by mouth once a day Eliquis 5 mg tablet 5 mg PO BID Qty: 60 0RF levalbuterol tartrate 45 mcg/actuation HFA aerosol inhaler 2 inh inhalation Q6H Qty: 15 0RF Discharge Instructions Instructions: Remdesivir, Prone Position Additional Instructions: Please return TOMORROW Sunday06-18-23 for Remdesivir infusion. Continue to increase oral fluids, Take Tylenol as needed for Fever or pain, use your Symbicort if increased SOB, Wheezing. Follow up with primary care provider in 3-5 days. Return to ED sooner if any worsening, O2 sat less than 90% or concerns. Referrals: Merle Mckinnon NP [Emergency Provider] - 06/18/24 Discharge Data Discharge Date/Time-TO BE ENTERED AT DEPARTURE: 06/17/24 10:40 HPI General Mode of arrival: ambulatory . Date/Time Provider Initiated Documentation: 06/17/24 09:04 . Limitations to Documentation: no limitations . Information obtained by: patient, RN notes reviewed and old records reviewed . HPI Narrative: 69-year-old female with past medical history of COVID-19 seen here 24 hours ago diagnosed with COVID and received 200 mg remdesivir IV instructed to return here today and Sunday for additional doses of 100 mg of remdesivir. According to medical record review infusion center unable to administer remdesivir at this time. Patient arrives with IV in place. She reports feeling improved from yesterday. Related Data Home Medications ?Medication ?Instructions ?Recorded ?Confirmed Lexapro 20 mg tablet (escitalopram 20 mg PO HS 04/25/13 06/18/24 oxalate) Nexium 20 mg capsule,delayed 40 mg PO HS 04/25/13 06/18/24 release (esomeprazole magnesium) levalbuterol tartrate 45 2 inh inhalation Q4H #15 grams 11/13/18 06/18/24 mcg/actuation aerosol inhaler alprazolam 0.25 mg tablet (Xanax) 0.25 mg PO PRN PRN 05/26/19 06/18/24 levothyroxine 125 mcg tablet 125 mcg PO HS 05/26/19 06/18/24 metoprolol succinate 25 mg 75 mg PO HS 05/26/19 06/18/24 tablet,extended release 24 hr epinephrine 0.3 mg/0.3 mL 0.3 mg (0.3 mL) IM ONCE #2 ea 11/23/20 06/18/24 injection, auto-injector (EpiPen) clobetasol 0.05 % topical ointment 1 applic topical QHS #45 grams 02/08/22 06/18/24 ketoconazole 2 % topical cream 1 applic topical BID #60 grams 09/19/22 06/18/24 montelukast 10 mg tablet 10 mg PO DAILY 02/02/23 06/18/24 (Singulair) ondansetron 4 mg disintegrating 4 mg PO Q6H PRN #10 tabs 02/02/23 06/18/24 tablet apixaban 5 mg tablet (Eliquis) 5 mg PO BID #60 tabs 12/15/23 06/18/24 cholecalciferol (vitamin D3) 25 1,000 mcg PO DAILY 12/15/23 06/18/24 mcg (1,000 unit) tablet (Vitamin D3) levalbuterol tartrate 45 2 inh inhalation Q6H #15 grams 02/18/24 06/18/24 mcg/actuation aerosol inhaler baricitinib 2 mg tablet (Olumiant) 2 mg PO DAILY 06/16/24 06/18/24 Previous Rx's ?Medication ?Instructions ?Recorded levalbuterol tartrate 45 2 inh inhalation Q4H #15 grams 11/13/18 mcg/actuation aerosol inhaler epinephrine 0.3 mg/0.3 mL 0.3 mg (0.3 mL) IM ONCE #2 ea 11/23/20 injection, auto-injector (EpiPen) clobetasol 0.05 % topical ointment 1 applic topical QHS #45 grams 02/08/22 ketoconazole 2 % topical cream 1 applic topical BID #60 grams 09/19/22 ondansetron 4 mg disintegrating 4 mg PO Q6H PRN #10 tabs 02/02/23 tablet apixaban 5 mg tablet (Eliquis) 5 mg PO BID #60 tabs 12/15/23 levalbuterol tartrate 45 2 inh inhalation Q6H #15 grams 02/18/24 mcg/actuation aerosol inhaler Allergies Allergy/AdvReac Type Severity Reaction Status Date / Time cefaclor (From Ceclor) Allergy Severe Anaphylaxsi Unverified 06/18/24 08:48 s Penicillins Allergy Severe Anaphylaxsi Unverified 06/18/24 08:48 s promethazine HCl (From Allergy Severe sulfite Unverified 06/18/24 08:48 Phenergan) will cause anaphylaxsis vancomycin Allergy Severe Hives Unverified 06/18/24 08:48 oxycodone HCl (From Percocet) Allergy Intermediate Hives, Unverified 06/18/24 08:48 Vomiting Sulfites Allergy Severe Anaphylaxsi Uncoded 06/18/24 08:48 s General Stated Complaint: Recheck TAMMIE: 4 Review of Systems All systems reviewed & are unremarkable except as noted in HPI and below Cardiovascular Cardiovascular: Reports dyspnea on exertion Respiratory Respiratory: Reports chest congestion, Reports cough, Denies hemoptysis, Reports dyspnea on exertion, Denies stridor and Denies wheezing Gastrointestinal Gastrointestinal: Denies abdominal pain, Denies melena, Reports nausea and Denies vomiting Allergic/Immunologic Allergic/Immunologic: Denies wheezing Exam Narrative Exam Narrative: Constitutional: Alert and oriented x3. Appears stated age. Well nourished body habitus. Head: Normocephalic, no trauma. Eyes: EOM's intact. Eyelids symmetrical without lesions, discharge, or swelling. Chest: RRR, Normal S1, S2, distal pulses intact. Resp: Lungs clear to auscultation bilaterally, no wheezes, rales, or rhonchi. Musculoskeletal: Normal gait, Moves all 4 extremities without difficulty. Skin: No suspicious rashes or lesions. Capillary refill less than 2 sec. Neurologic: Cranial nerves II-XII intact. Alert and oriented x 3. Motor: No deficits noted. Hematologic/Lymphatic: No ecchymosis, no lymphadenopathy. Course Vital Signs Vital signs: Vital Signs Temperature 36.1 C L 06/17/24 09:00 Pulse 62 06/17/24 09:00 Respiratory Rate 16 06/17/24 09:00 Blood Pressure 128/64 06/17/24 09:00 Pulse Oximetry 96 06/17/24 09:00 Temperature 36.1 C L 06/17/24 09:00 Temperature Source Temporal Artery Scan 06/17/24 09:00 Pulse 62 06/17/24 09:00 Respiratory Rate 16 06/17/24 09:00 Respiratory Effort Normal, Short of Breath 06/17/24 09:03 Blood Pressure 128/64 06/17/24 09:00 Blood Pressure Position Sitting 06/17/24 09:00 Pulse Oximetry 96 06/17/24 09:00 Oxygen Delivery Method Room Air 06/17/24 09:00 Oxygen Flow Rate 0 06/17/24 09:00 Pain Level 0 06/17/24 09:00 Medical Decision Making 69-year-old female with past medical history of COVID-19 seen here 24 hours ago diagnosed with COVID and received 200 mg remdesivir IV instructed to return here and Sunday for additional doses of 100 mg of remdesivir. According to medical record review infusion center unable to administer remdesivir at this time. Patient arrives with IV in place. She reports feeling improved from yesterday. Lungs clear to auscultation bilaterally, she does have bronchospastic cough noted. Denies any other associated symptoms. She has been taking Tylenol as needed. Denies any vomiting diarrhea she does endorse nausea which has since resolved since yesterday. She is alert and oriented x 4, pleasantly conversive. Medical records reviewed, remdesivir 100 mg IV piggyback ordered. Infusion complete. Patient remained hemodynamically stable throughout remainder of stay. Instructed to return in 24 hours for additional infusion she verbalized understanding. Is in agreement with the plan. This text was generated using [employer] dictation system, please disregard any oddities of phrase or misspellings. Medical Records Medical records reviewed: Yes I reviewed the patient's medical records. Lab Data Lab results reviewed: Yes I reviewed the patient's lab results. Lab results narrative: From 06/16/2024 Quality:SDOH Health Related Social Needs: No Data to Display [facility] All Active Problems (Updated 06/18/24 @ 10:32 by Merle Mckinnon NP) Encounter for medication administration (Acute) COVID (Acute) Body aches (Acute) Cough (Acute) PMR (polymyalgia rheumatica) (Acute) Primary hyperparathyroidism (Acute) Encounter for monitoring immunosuppressive medication therapy causing immunodeficiency (Acute) Hematuria (Acute) High risk medications (not anticoagulants) long-term use (Acute) Dermatomyositis (Acute) Encounter for screening laboratory testing for COVID-19 virus (Acute) Cough (Acute) Atrophic vaginitis (Acute) Vulvar burning (Acute) 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) Depression (Chronic) Medical History Serum calcium elevated Hx of iron deficiency anemia iron infusions (post menopausal bleeding) 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 Anxiety History of postoperative nausea and vomiting severe - treated successfully w/Ativan per Pt Hx of ectopic 1975 ruptured Primary osteoarthritis of right knee Deviated nasal septum (05/20/15) Chronic rhinitis (06/10/15) Anterior epistaxis (05/20/15) GERD (gastroesophageal reflux disease) Hypothyroidism Seasonal allergies Morbid obesity with BMI of 40.0-44.9, adult Influenza A with pneumonia (12/20/13) Surgical History History of total right knee replacement (TKR) History of arthroplasty of knee Left 2012 Hx of basal cell carcinoma excision History of esophagogastroduodenoscopy (EGD) History of colonoscopy History of tonsillectomy History of appendectomy Hx of cholecystectomy History of prior ablation treatment Uterine Hx of dilation and curettage Status post carpal tunnel release Right 2018. Left open carpal tunnel release 2019. Status post total knee replacement Left knee. Family History Other Diabetes FHx: allergies Family hx of ALS (amyotrophic lateral sclerosis) Social History Smoking/Tobacco Use Status: Former Tobacco Use Smoking risk assessment performed?: Yes Alcohol Intake: never Drug use: Never Substance use type: does not use Housing: house Do you feel safe at home: Yes Do you feel safe in your relationship?: Yes
[2024-06-17 09:35] VITALS: PULSE 67; RESP 16; O2SAT 96
[2024-06-17] MEDS: REMDESIVIR 100 MG in Normal Saline 250 ML 250 MG IVPB (09:35)
[2024-06-17 10:39] VITALS: BP 128/64; PULSE 64; RESP 16; TEMP 36.4; O2SAT 96
== END 2024-06-17 10:40 | disposition home or self-care (01) ==
PROVIDERS: Emergency Provider Registered Nurse Emergency; PCP Family Medicine
DX: U07.1 COVID-19 (principal); Z87.891 Personal history of nicotine dependence
CPT/HCPCS: 96365; 99284; 99282; J0248

== ENCOUNTER 2024-06-18 08:42 | Emergency (ER) | payer OTHER, SELFPAY ==
[2024-06-18 08:45] VITALS: BP 133/68; PULSE 68; RESP 17; TEMP 36.6; O2SAT 98
--- NOTE | 2024-06-18 08:57 | ED.GENADUL_ITS ---
Discharge Plan Disposition Patient Disposition: Home Condition: Stable Discharge Details Clinical Impression: Encounter for medication administration Primary Care Provider: Samantha Michelle V ED Provider: Merle Mckinnon Home Meds and New Rx's Prescriptions: Continued clobetasol 0.05 % ointment 1 applic topical QHS Qty: 45 4RF Rx Instructions: applu to introitus, site of vulvar burning. esomeprazole magnesium [Nexium] 20 MG capsule,delayed release(DR/EC) 40 mg PO HS escitalopram oxalate [Lexapro] 20 MG tablet 20 mg PO HS levalbuterol tartrate 45 mcg/actuation HFA aerosol inhaler 2 inh IH Q4H Qty: 15 0RF Rx Instructions: Give 2 puffs every 4 hours PRN epinephrine [EpiPen] 0.3 mg/0.3 mL auto-injector 0.3 mg IM ONCE Qty: 2 1RF Rx Instructions: as a single dose ketoconazole 2 % cream 1 applic topical BID Qty: 60 1RF Olumiant 2 mg tablet 2 mg PO DAILY levothyroxine 125 MCG tablet 125 mcg PO HS metoprolol succinate 25 mg tablet extended release 24 hr 75 mg PO HS alprazolam [Xanax] 0.25 mg Tablet 0.25 mg PO PRN PRN Rx Instructions: 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 montelukast [Singulair] 10 mg Tablet 10 mg PO DAILY ondansetron 4 mg tablet,disintegrating 4 mg PO Q6H PRNQty: 10 0RF cholecalciferol (vitamin D3) [Vitamin D3] 25 mcg (1,000 unit) tablet 1,000 mcg PO DAILY Patient Comments: Take 1 tablet by mouth once a day Eliquis 5 mg tablet 5 mg PO BID Qty: 60 0RF levalbuterol tartrate 45 mcg/actuation HFA aerosol inhaler 2 inh inhalation Q6H Qty: 15 0RF Discharge Instructions Instructions: COVID-19 ED Additional Instructions: Follow up with primary care provider in 3-5 days. Return to ED sooner if any worsening or concerns. Please consider getting a pulse oximeter at home and monitoring your O2 sat please return to be seen for O2 sat of less than 90%. Thank you for allowing us to care for you. Stand Alone Forms: Work Release Referrals: Samantha Michelle MD [Primary Care Provider] - 2 weeks Discharge Data Discharge Date/Time-TO BE ENTERED AT DEPARTURE: 06/18/24 10:39 HPI General Mode of arrival: ambulatory . Date/Time Provider Initiated Documentation: 06/18/24 08:50 . Limitations to Documentation: no limitations . Information obtained by: patient, RN notes reviewed and old records reviewed . HPI Narrative: Patient here for 3rd infusion of Remdesivir for new Covid diagnosis. Patient reports that she is having increased fatigue, sinus congestion and headache which she did not take anything for prior to arrival as she did not eat. Lungs are clear to auscultation bilaterally. She is alert and oriented x 4 O2 sat 98% on room air. Does have an IV in place she does report small amount of tenderness when she bends her arm, no phlebitis or signs of infiltration noted at this time. Past medical history includes atrial fibrillation, iron deficiency anemia, obstructive sleep apnea,, obesity. Related Data Home Medications ?Medication ?Instructions ?Recorded ?Confirmed Lexapro 20 mg tablet (escitalopram 20 mg PO HS 04/25/13 06/18/24 oxalate) Nexium 20 mg capsule,delayed 40 mg PO HS 04/25/13 06/18/24 release (esomeprazole magnesium) levalbuterol tartrate 45 2 inh inhalation Q4H #15 grams 11/13/18 06/18/24 mcg/actuation aerosol inhaler alprazolam 0.25 mg tablet (Xanax) 0.25 mg PO PRN PRN 05/26/19 06/18/24 levothyroxine 125 mcg tablet 125 mcg PO HS 05/26/19 06/18/24 metoprolol succinate 25 mg 75 mg PO HS 05/26/19 06/18/24 tablet,extended release 24 hr epinephrine 0.3 mg/0.3 mL 0.3 mg (0.3 mL) IM ONCE #2 ea 11/23/20 06/18/24 injection, auto-injector (EpiPen) clobetasol 0.05 % topical ointment 1 applic topical QHS #45 grams 02/08/22 06/18/24 ketoconazole 2 % topical cream 1 applic topical BID #60 grams 09/19/22 06/18/24 montelukast 10 mg tablet 10 mg PO DAILY 02/02/23 06/18/24 (Singulair) ondansetron 4 mg disintegrating 4 mg PO Q6H PRN #10 tabs 02/02/23 06/18/24 tablet apixaban 5 mg tablet (Eliquis) 5 mg PO BID #60 tabs 12/15/23 06/18/24 cholecalciferol (vitamin D3) 25 1,000 mcg PO DAILY 12/15/23 06/18/24 mcg (1,000 unit) tablet (Vitamin D3) levalbuterol tartrate 45 2 inh inhalation Q6H #15 grams 02/18/24 06/18/24 mcg/actuation aerosol inhaler baricitinib 2 mg tablet (Olumiant) 2 mg PO DAILY 06/16/24 06/18/24 Previous Rx's ?Medication ?Instructions ?Recorded levalbuterol tartrate 45 2 inh inhalation Q4H #15 grams 11/13/18 mcg/actuation aerosol inhaler epinephrine 0.3 mg/0.3 mL 0.3 mg (0.3 mL) IM ONCE #2 ea 11/23/20 injection, auto-injector (EpiPen) clobetasol 0.05 % topical ointment 1 applic topical QHS #45 grams 02/08/22 ketoconazole 2 % topical cream 1 applic topical BID #60 grams 09/19/22 ondansetron 4 mg disintegrating 4 mg PO Q6H PRN #10 tabs 02/02/23 tablet apixaban 5 mg tablet (Eliquis) 5 mg PO BID #60 tabs 12/15/23 levalbuterol tartrate 45 2 inh inhalation Q6H #15 grams 02/18/24 mcg/actuation aerosol inhaler Allergies Allergy/AdvReac Type Severity Reaction Status Date / Time cefaclor (From Ceclor) Allergy Severe Anaphylaxsi Unverified 06/18/24 08:48 s Penicillins Allergy Severe Anaphylaxsi Unverified 06/18/24 08:48 s promethazine HCl (From Allergy Severe sulfite Unverified 06/18/24 08:48 Phenergan) will cause anaphylaxsis vancomycin Allergy Severe Hives Unverified 06/18/24 08:48 oxycodone HCl (From Percocet) Allergy Intermediate Hives, Unverified 06/18/24 08:48 Vomiting Sulfites Allergy Severe Anaphylaxsi Uncoded 06/18/24 08:48 s General Stated Complaint: Recheck TAMMIE: 3 Review of Systems Constitutional Constitutional: Reports headache(s) ENT Ears, Nose, Mouth, and Throat: Reports as per HPI, Reports headache(s), Reports nasal congestion and Reports sinus pressure Respiratory Respiratory: Denies change in phlegm color, Reports cough (bronchospastic), Denies stridor and Denies wheezing Neurologic Neurologic: Reports headache(s) Allergic/Immunologic Allergic/Immunologic: Denies wheezing Exam Narrative Exam Narrative: Constitutional: Alert and oriented x3. Appears stated age. Well-nourished body habitus. Pleasant conversive, does report fatigue. Head: Normocephalic, no trauma. Chest: RRR, Normal S1, S2, distal pulses intact. Resp: Lungs clear to auscultation bilaterally, no wheezes, rales, or rhonchi. Musculoskeletal: Normal gait, Moves all 4 extremities without difficulty. Course Vital Signs Vital signs: Vital Signs Temperature 36.6 C 06/18/24 08:45 Pulse 68 06/18/24 08:45 Respiratory Rate 17 06/18/24 08:45 Blood Pressure 133/68 06/18/24 08:45 Pulse Oximetry 98 06/18/24 08:45 Temperature 36.6 C 06/18/24 08:45 Temperature Source Temporal Artery Scan 06/18/24 08:45 Pulse 68 06/18/24 08:45 Respiratory Rate 17 06/18/24 08:45 Respiratory Effort Normal 06/18/24 08:48 Blood Pressure 133/68 06/18/24 08:45 Blood Pressure Position Sitting 06/18/24 08:45 Pulse Oximetry 98 06/18/24 08:45 Oxygen Delivery Method Room Air 06/18/24 08:45 Oxygen Flow Rate 0 06/18/24 08:45 Pain Level 1 06/18/24 08:45 Medical Decision Making Patient here for 3rd infusion of Remdesivir for new Covid diagnosis. Patient reports that she is having increased fatigue, sinus congestion and headache which she did not take anything for prior to arrival as she did not eat. Lungs are clear to auscultation bilaterally. She is alert and oriented x 4 O2 sat 98% on room air. Does have an IV in place she does report small amount of tenderness when she bends her arm, no phlebitis or signs of infiltration noted at this time. Past medical history includes atrial fibrillation, iron deficienc y anemia, obstructive sleep apnea,, obesity. Remdesivir IVPB ordered for last infusion. Patient discharged in hemodynamically stable condition and tolerated infusion without difficulty. This text was generated using [employer]ed[employer] system, please disregard any oddities of phrase or misspellings. Medical Records Medical records reviewed: Yes I reviewed the patient's medical records. Lab Data Lab results reviewed: Yes I reviewed the patient's lab results. Quality:SDOH Health Related Social Needs: No Data to Display PFSH All Active Problems (Updated 06/18/24 @ 10:32 by Merle Mckinnon NP) Encounter for medication administration (Acute) COVID (Acute) Body aches (Acute) Cough (Acute) PMR (polymyalgia rheumatica) (Acute) Primary hyperparathyroidism (Acute) Encounter for monitoring immunosuppressive medication therapy causing immunodeficiency (Acute) Hematuria (Acute) High risk medications (not anticoagulants) long-term use (Acute) Dermatomyositis (Acute) Encounter for screening laboratory testing for COVID-19 virus (Acute) Cough (Acute) Atrophic vaginitis (Acute) Vulvar burning (Acute) 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) Depression (Chronic) Medical History Serum calcium elevated Hx of iron deficiency anemia iron infusions (post menopausal bleeding) 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 Anxiety History of postoperative nausea and vomiting severe - treated successfully w/Ativan per Pt Hx of ectopic 1975 ruptured Primary osteoarthritis of right knee Deviated nasal septum (05/20/15) Chronic rhinitis (06/10/15) Anterior epistaxis (05/20/15) GERD (gastroesophageal reflux disease) Hypothyroidism Seasonal allergies Morbid obesity with BMI of 40.0-44.9, adult Influenza A with pneumonia (12/20/13) Surgical History History of total right knee replacement (TKR) History of arthroplasty of knee Left 2011 Hx of basal cell carcinoma excision History of esophagogastroduodenoscopy (EGD) History of colonoscopy History of tonsillectomy History of appendectomy Hx of cholecystectomy History of prior ablation treatment Uterine Hx of dilation and curettage Status post carpal tunnel release Right 2017. Left open carpal tunnel release 2019. Status post total knee replacement Left knee. Family History Other Diabetes FHx: allergies Family hx of ALS (amyotrophic lateral sclerosis) Social History Smoking/Tobacco Use Status: Former Tobacco Use Smoking risk assessment performed?: Yes Alcohol Intake: never Drug use: Never Substance use type: does not use Housing: house Do you feel safe at home: Yes Do you feel safe in your relationship?: Yes
[2024-06-18] MEDS: REMDESIVIR 100 MG in Normal Saline 250 ML 250 MG IVPB (09:26)
[2024-06-18 10:38] VITALS: BP 138/75; PULSE 62; RESP 12; O2SAT 97
== END 2024-06-18 10:39 | disposition home or self-care (01) ==
PROVIDERS: Emergency Provider Registered Nurse Emergency; PCP Family Medicine
DX: U07.1 COVID-19 (principal)
CPT/HCPCS: 96365; 99282; J0248

== ENCOUNTER 2024-07-29 02:21 | Outpatient (CLI) | payer OTHER, SELFPAY ==
--- NOTE | 2024-07-29 09:50 | DI.MRI_ITS ---
Exam(s) MR UPPER EXTREMITY RT WO EXAM: MR UPPER EXTREMITY RT WO CLINICAL HISTORY: M25.541,M25.542 Arthralgia of both hands. TECHNIQUE: Multiplanar multisequence MRI was performed. COMPARISON: Comparison x-ray is 05/08/2024. FINDINGS: BONES: There is no fracture or contusion pattern. There is mild hyperintense signal seen on the T2 we ighted images in the head of the 2nd metacarpal bone. There is a small amount of fluid adjacent to th e heads of the 2nd and 3rd metacarpal bones. Mild subchondral edema is seen across the seen at the sc apholunate joint. There is a fluid collection seen adjacent to the pisotriquetral joint which may rep resent a ganglion cyst. There is a small benign-appearing cyst in the distal aspect of the scaphoid. JOINTS: Osteoarthritic changes are seen in the hand and wrist particularly at the 1st CMC joint and t he interphalangeal joints of the fingers. TENDONS: Flexors: Unremarkable. Extensors: Unremarkable. MUSCLES: Unremarkable. MEDIAN NERVE: Unremarkable on this noncontrast examination. ULNAR NERVE: Unremarkable on this noncontrast examination. SOFT TISSUES: There is mild edema seen in the soft tissues around the 2nd through 5th PIP joints. LIGAMENTS: Unremarkable. IMPRESSION: Findings consistent with osteoarthritis of the hand and wrist. An inflammatory/erosive osteoarthritis should be considered. DATA REPOSITORY:
--- NOTE | 2024-07-29 10:15 | DI.MRI_ITS ---
Exam(s) MR UPPER EXTREMITY LT WO EXAM: MR UPPER EXTREMITY LT WO CLINICAL HISTORY: M25.541,M25.542 Arthralgia of both hands. TECHNIQUE: Multiplanar multisequence MRI was performed. COMPARISON: X-ray of the left hand from 05/08/2024. FINDINGS: BONES: There is no fracture or contusion pattern. There is a cyst seen in the head of the 2nd metacar pal bone. There is mild surrounding edema present. Small cysts are seen in the base of the distal p halanx of the 3rd finger and at the 1st CMC joint.. JOINTS: There are degenerative changes seen in the hand and wrist characterized by joint space narrow ing, osteophytes and subchondral edema. The findings are most marked in the 1st carpometacarpal join t. Findings are also seen in the interphalangeal joints of the fingers. There is a small amount of fluid seen in the 2nd MCP joint. There also is a small amount of fluid in the 3rd and 4th metacarpop halangeal joints. Mild edema is seen in the surrounding soft tissues. TENDONS: Flexors: Unremarkable. Extensors: Unremarkable. MUSCLES: Unremarkable. MEDIAN NERVE: Unremarkable on this noncontrast examination. ULNAR NERVE: Unremarkable on this noncontrast examination. SOFT TISSUES: No focal fluid collection to suggest an abscess. LIGAMENTS: Unremarkable. OTHER: IMPRESSION: 1. Findings consistent with osteoarthritis in the left hand. 2. Findings seen of the 2nd, 3rd and 4th metacarpophalangeal joints also suggesting an inflammatory a rthritis. DATA REPOSITORY:
== END 2024-07-29 02:41 ==
LOC: DI 02:21
PROVIDERS: PCP Family Medicine; Visit Provider Dermatology
DX: M19.042 Primary osteoarthritis, left hand (principal); M19.041 Primary osteoarthritis, right hand
CPT/HCPCS: 73218

== ENCOUNTER 2024-12-29 14:08 | Outpatient (CLI) | payer OTHER, SELFPAY ==
[2024-12-29 09:28] LABS: Abs Immature Grans 0.07 10^3/uL (0.0-0.06); Absolute Basophil Count 0.05 10^3/uL (0.0-0.2); Absolute Eosinophil Count 0.27 10^3/uL (0.0-0.7); Absolute Lymphocyte Count 2.23 10^3/uL (1.2-3.4); Absolute Monocyte Count 0.54 10^3/uL (0.1-0.8); Absolute Neutrophil Count 6.21 10^3/uL (1.2-6.7); Basophils % 0.5 %; Eosinophils % 2.9 %; HCT 39.4 % (36.0-46.0); HGB 12.1 g/dL (11.2-15.7); Immature Grans % 0.7 %; Lymphocytes % 23.8 %; MCH 25.2 pg (27.0-33.0); MCHC 30.7 % (32.0-36.0); MCV 82 fL (80-95); Monocytes % 5.8 %; Neutrophils % 66.3 %; Platelet Count 303 10^3/uL (130-400); RDW 17.6 % (11.7-14.6); RDW-SD 52.7 fL; WBC 9.37 10^3/uL (4.4-10.8)
[2024-12-29 09:56] LABS: ALT 25 U/L (14-59); AST 34 U/L (15-37); Albumin 3.4 g/dL (3.4-5.0); Alkaline Phosphatase 106 U/L (46-116); Anion Gap 6.7 mmol/L (3-11); BUN 15 mg/dL (7-18); Bilirubin, Total 0.35 mg/dL (0.2-1.0); C-Reactive Protein 2.01 mg/dL (<or=0.5); CO2 29.3 mmol/L (21.0-32.0); CREATININE 0.8 mg/dL (0.55-1.02); Calcium 9.8 mg/dL (8.5-10.1); Calculated LDL 88 mg/dL (<100); Chloride 105 mmol/L (98-107); Cholesterol 173 mg/dL (<200); Estimated GFR 80.21 (mL/min/1.73m2); Glucose 144 mg/dL (74-106); HDL Cholesterol 48 mg/dL (40-60); Potassium 4.5 mmol/L (3.5-5.1); Sodium 141 mmol/L (136-145); Triglyceride 189 mg/dL (<150)
== END 2024-12-29 14:09 | disposition home or self-care (01) ==
LOC: LBO 14:08
PROVIDERS: PCP Family Medicine; Visit Provider Dermatology
DX: Z79.899 Other long term (current) drug therapy (principal)
CPT/HCPCS: 36415; 80053; 80061; 85025; 86140

== ENCOUNTER 2025-01-08 10:55 | Outpatient (CLI) | payer OTHER, SELFPAY ==
[2025-01-12 14:28] LABS: TB Interpretation Negative (Negative)
== END 2025-01-08 10:56 | disposition home or self-care (01) ==
LOC: LBO 10:56
PROVIDERS: PCP Family Medicine; Visit Provider Dermatology
DX: Z79.899 Other long term (current) drug therapy (principal)
CPT/HCPCS: 36415; 86480

== ENCOUNTER 2025-02-24 01:26 | Outpatient (CLI) | payer OTHER, SELFPAY ==
--- NOTE | 2025-02-24 | DI.MAMMO_ITS ---
Exam(s) MAMMO SCREENING EXAM: MAMMO SCREENING CLINICAL HISTORY: SCREENING, Z12.31 TECHNIQUE: Bilateral full field digital CC and MLO mammographic images were obtained with 3D tomosyn thesis and utilizing computer aided detection (CAD). COMPARISON: Available for comparison. FINDINGS: The left MLO view was nondiagnostic secondary to system error. The patient is scheduled to return on 02/25/2025 to repeat the left MLO view. Masses/Architectural Distortion: No new or suspicious masses are seen. No areas of architectural dis tortion are present. Microcalcifications: No suspicious pleomorphic-type are seen. Skin Thickening/Nipple Retraction: None. IMPRESSION: 1. The patient is scheduled to return on 02/25/2025 to repeat the left MLO view. 2. No evidence of malignancy is seen on the right mammogram. 3. BI-RADS Category 0 - Incomplete: Need additional imaging evaluation Breast Density - Category B - Scattered areas of fibroglandular density Breast density category C or D implies that the patient has dense breast tissue. Dense breast tissue is very common and is not abnormal but dense breast tissue can make it harder to find cancer on a ma mmogram. Also, dense breast tissue may increase their breast cancer risk. This information about the result of the mammogram report was provided to the patient to raise their awareness. Use this report when you speak with the patient about their risks for breast cancer, which includes their family hist ory. At that time, you may recommend for more screening tests (Ultrasound or MRI) as they might be us eful based on their risk. A negative radiographic report should not delay biopsy if a dominant or clinically suspicious mass is present. Up to ten percent of cancers are not identified on mammography. A negative report may reinforce clinical impression. Adenosis and dense breasts may obscure an underlying neoplasm. False positive reports average 6 to 10%. Patient will receive a letter notifying them of these results.
== END 2025-02-24 01:46 ==
LOC: DI 01:26
PROVIDERS: PCP Family Medicine; Visit Provider Family Medicine
DX: Z12.31 Encounter for screening mammogram for malignant neoplasm of breast (principal); R92.323 Mammographic fibroglandular density, bilateral breasts
CPT/HCPCS: 77063; 77067

== ENCOUNTER 2025-05-14 10:27 | Outpatient (CLI) | payer OTHER, SELFPAY ==
--- NOTE | 2025-05-14 | DI.RAD_ITS ---
Exam(s) XR CHEST 2V PA LATERAL EXAM: XR CHEST 2V PA LATERAL CLINICAL HISTORY: Cough R05.9 TECHNIQUE: 2D digital imaging was performed of the chest. Two images were obtained. PA and lateral views were obtained. COMPARISON: CR CHEST 2 VIEWS PA,LAT from 01/20/2015 CR,XR XR PORTABLE CHEST AP from 12/15/2023 CR XR CHEST 2V PA LATERAL from 02/18/2024 CR XR CHEST 2V PA LATERAL from 06/16/2024 FINDINGS: MEDIASTINUM: Normal. HEART: Normal. PULMONARY VASCULATURE: Normal. LUNGS: No focal consolidating infiltrates are present. PLEURAL SPACE: No pleural effusion or pneumothorax. BONE:Within normal limits for the patient's age. OTHER FINDINGS:Normal. IMPRESSION: No acute pulmonary findings. DATA REPOSITORY: RADIATION DOSE DELIVERED:
== END 2025-05-14 10:47 ==
LOC: DI 10:28
PROVIDERS: PCP Family Medicine; Visit Provider Physician Assistant Medical
DX: R05.9 Cough, unspecified (principal)
CPT/HCPCS: 71046

== ENCOUNTER 2025-05-19 14:13 | Outpatient (REF) | payer OTHER, SELFPAY ==
[2025-05-19 15:56] LABS: HCT 39.2 % (36.0-46.0); HGB 12.2 g/dL (11.2-15.7); MCHC 31.1 % (32.0-36.0); MCV 77 fL (80-95); MPV 10.4 fL (8.0-11.0); Platelet Count 323 10^3/uL (130-400); RBC 5.09 10^6/uL (3.93-5.22); RDW 18.8 % (11.7-14.6); WBC 15.18 10^3/uL (4.4-10.8)
[2025-05-19 16:20] LABS: ALT 38 U/L (14-59); AST 49 U/L (15-37); Albumin 3.4 g/dL (3.4-5.0); Alkaline Phosphatase 106 U/L (46-116); BUN 13 mg/dL (7-18); Bilirubin, Total 0.5 mg/dL (0.2-1.0); CREATININE 0.8 mg/dL (0.55-1.02); Calcium 9.5 mg/dL (8.5-10.1); Chloride 104 mmol/L (98-107); Estimated GFR 80.21 (mL/min/1.73m2); Glucose 128 mg/dL (74-106); Potassium 4.1 mmol/L (3.5-5.1); Sodium 140 mmol/L (136-145); TSH 2.48 uIU/mL (0.36-3.74); Total Protein 7.8 g/dL (6.4-8.2)
[2025-05-20 09:25] LABS: Parathyroid Hormone,Intact 78 pg/mL (19-88)
== END 2025-05-19 14:14 | disposition home or self-care (01) ==
LOC: NCHCN 14:13
PROVIDERS: PCP Family Medicine; Visit Provider Family Medicine
DX: E21.3 Hyperparathyroidism, unspecified (principal); E03.9 Hypothyroidism, unspecified; E50.9 Vitamin A deficiency, unspecified; E78.5 Hyperlipidemia, unspecified
CPT/HCPCS: 80053; 85027; 83970; 84439; 84443

== ENCOUNTER 2025-06-04 12:03 | Outpatient (CLI) | payer OTHER, SELFPAY ==
[2025-06-04 13:29] LABS: Ferritin 38 ng/mL (8-252); Iron 30 ug/dL (50-170); Total Iron Binding Capacity 310 ug/dL (250-450); Transferrin Sat 10 % (15-50)
== END 2025-06-04 12:04 | disposition home or self-care (01) ==
LOC: LBO 12:04
PROVIDERS: PCP Family Medicine; Visit Provider Family Medicine
DX: D50.9 Iron deficiency anemia, unspecified (principal)
CPT/HCPCS: 36415; 82784; 83516; 82728; 83540; 83550

== ENCOUNTER 2025-10-09 02:44 | Outpatient (CLI) | payer OTHER, MEDICARE, SELFPAY ==
[2025-10-09 10:34] LABS: Abs Immature Grans 0.05 10^3/uL (0.0-0.06); HCT 38.9 % (36.0-46.0); HGB 12.2 g/dL (11.2-15.7); Immature Grans % 0.6 %; MCH 25.1 pg (27.0-33.0); MCHC 31.4 % (32.0-36.0); MCV 80 fL (80-95); RBC 4.87 10^6/uL (3.93-5.22); RDW 19.1 % (11.7-14.6); RDW-SD 53.1 fL; WBC 8.97 10^3/uL (4.4-10.8)
[2025-10-09 11:13] LABS: C-Reactive Protein 2.67 mg/dL (<=0.50)
[2025-10-09 11:15] LABS: ALT 24 U/L (10-49); AST 47 U/L (<34); Albumin 3.9 g/dL (3.4-5.0); Alkaline Phosphatase 102 U/L (46-116); Anion Gap 9 mmol/L (3-11); BUN 11 mg/dL (9-23); Bilirubin, Total 0.40 mg/dL (0.2-1.2); CO2 24.0 mmol/L (20.0-31.0); Calcium 9.6 mg/dL (8.3-10.6); Chloride 105 mmol/L (98-107); Glucose 160 mg/dL (74-106); Potassium 4.4 mmol/L (3.5-5.1); Sodium 138 mmol/L (136-145); Total Protein 7.2 g/dL (5.7-8.2)
== END 2025-10-09 02:45 | disposition home or self-care (01) ==
PROVIDERS: PCP Family Medicine; Visit Provider Student in an Organized Health Care Education/Training Program
DX: Z79.899 Other long term (current) drug therapy (principal)
CPT/HCPCS: 36415; 80053; 85025; 86140